=== PATIENT | female | born 1960 | race Caucasian/White ===

== ENCOUNTER 2016-11-02 03:39 | Emergency (ER) | payer BC ==
[~2016-11-02] VITALS: Ht 172.7 cm; Wt 50.3 kg
[~2016-11-02 03:39] MED LIST: DULO-24 PO; MORP15TA PO; MULT-506 PO; PRLSR20 PO; QUET1TAB34 PO; VITAMIN D3 PO; [UNRECOGNIZED DRUG - CODE] PO
[2016-11-02 03:40] VITALS: TEMP 37.1; Ht 172.7 cm; Wt 50.3 kg
[2016-11-02] MEDS ORDERED: LORAZEPAM 0.5 MG TAB SL STA (04:00)
[2016-11-02] MEDS ORDERED: RANI300T PO (04:10)
[2016-11-02] MEDS ORDERED: MORP-88 PO (04:10)
--- NOTE | 2016-11-02 04:10 | EMERGENCY ROOM VISIT NOTE ---
History Report prepared by Nainibmaria m: Gricel Heck Under the Supervision of: Dr. Ed Moyer M.D. First contact with patient: 03:50 Chief Complaint: MENTAL HEALTH EVALUATION Stated Complaint: PARANOIA,FEAR,LACK OF SLEEP History of Present Illness The patient is a 56 year old female who presents to the Emergency Room for a mental health evaluation. The patient states that she "been on a roller coaster for a couple years" and she "drove my son over the edge". She states shes happy and denies thoughts of hurting her self. The patient denies any pain, headaches , chest pain, and urinary symptoms. She is on Morphine for scoliosis, Statin, an anti-depressant, and Trazodone. She also states she smokes. Per son, the patient's episode today is almost identical to the last time the patient was in the ED for a manic episode requiring admission a few years ago. Michael drug/ etoh use. She admits inability to sleep. Source of History: patient Onset: today Position: other (generalized) Timing: other (episode) Associated Symptoms: No headache, No chest pain, No urinary symptoms Review of Systems See HPI for pertinent positives & negatives. A total of 10 systems reviewed and were otherwise negative. Past Medical & Surgical Medical Problems: (1) Pneumonia (2) Scoliosis Family History Hypertension Kidney disease Social History Smoking Status: Current Every Day Smoker Alcohol Use: none Drug Use: none Marital Status: Housing Status: lives alone Occupation Status: employed Current/Historical Medications Scheduled Atorvastatin (Atorvastatin Calcium), 20 MG PO DAILY Duloxetine HCl (Duloxetine HCl), 30 MG PO BID Morphine Sulfate (Morphine Sulfate Cr), 60 MG PO Q12 Ranitidine Hcl (Zantac), 300 MG PO BID Trazodone Hcl (Desyrel), 125 MG PO HS Scheduled PRN Morphine Sulfate Ir (Morphine Sulfate Ir), 15 MG PO Q4H PRN for Pain Allergies Coded Allergies: Risperidone (Verified Allergy, Unknown, CONFUSED, 11/02/16) Physical Exam Vital Signs Date Time Temp Pulse Resp B/P (MAP) Pulse Ox O2 Delivery O2 Flow Rate FiO2 11/02/16 07:20 95 18 132/86 96 Room Air 11/02/16 03:40 37.1 122 20 139/94 96 Room Air Physical Exam GENERAL: Patient is acutely manic, happy, no distress. HEENT: No acute trauma, normocephalic atraumatic, mucous membranes moist, no nasal congestion, no scleral icterus. NECK: No stridor, no adenopathy, no meningismus, trachea is midline. LUNGS: No dyspnea. Clear to auscultation and equal bilaterally. No wheeze, no rhonchi. HEART: Regular rate and rhythm. No murmurs, rubs, gallops appreciated. ABDOMEN: Soft, nontender, bowel sounds positive, no masses appreciated, no peritonitis. BACK: No midline tenderness, no CVA tenderness EXTREMITIES: Normal motion all extremities, no cyanosis, no edema. NEUROLOGIC: Alert and oriented, no acute motor or sensory deficits, no focal weakness, cranial nerves grossly intact. SKIN: No rash, no jaundice, no diaphoresis. PSYCH: Tangential, repetitive, rapid speech. Denies suicidal and homicidal ideation. Denies depression. Medical Decision & Procedures Laboratory Results 11/02/16 04:07 Red Blood Count 5.25, Mean Corpuscular Volume 89.1, Mean Corpuscular Hemoglobin 33.3, Mean Corpuscular Hemoglobin Concent 37.4, Mean Platelet Volume 9.5, Neutrophils (%) (Auto) 72.6, Lymphocytes (%) (Auto) 19.9, Monocytes (%) (Auto) 6.6, Eosinophils (%) (Auto) 0.2, Basophils (%) (Auto) 0.4, Neutrophils # (Auto) 8.23, Lymphocytes # (Auto) 2.26, Monocytes # (Auto) 0.75, Eosinophils # (Auto) 0.02, Basophils # (Auto) 0.04 11/02/16 04:07 Test 11/02/16 04:07 11/02/16 04:34 White Blood Count 11.33 K/uL (4.8-10.8) Red Blood Count 5.25 M/uL (4.2-5.4) Hemoglobin 17.5 g/dL (12.0-16.0) Hematocrit 46.8 % (37-47) Mean Corpuscular Volume 89.1 fL (80-100) Mean Corpuscular Hemoglobin 33.3 pg (25-34) Mean Corpuscular Hemoglobin Concent 37.4 g/dl (32-36) Platelet Count 255 K/uL (130-400) Mean Platelet Volume 9.5 fL (7.4-10.4) Neutrophils (%) (Auto) 72.6 % Lymphocytes (%) (Auto) 19.9 % Monocytes (%) (Auto) 6.6 % Eosinophils (%) (Auto) 0.2 % Basophils (%) (Auto) 0.4 % Neutrophils # (Auto) 8.23 K/uL (1.4-6.5) Lymphocytes # (Auto) 2.26 K/uL (1.2-3.4) Monocytes # (Auto) 0.75 K/uL (0.11-0.59) Eosinophils # (Auto) 0.02 K/uL (0-0.5) Basophils # (Auto) 0.04 K/uL (0-0.2) RDW Standard Deviation 40.9 fL (36.4-46.3) RDW Coefficient of Variation 12.6 % (11.5-14.5) Immature Granulocyte % (Auto) 0.3 % Immature Granulocyte # (Auto) 0.03 K/uL (0.00-0.02) Anion Gap 8.0 mmol/L (3-11) Est Creatinine Clear Calc Drug Dose 67.4 ml/min Estimated GFR () 105.0 Estimated GFR (Non- 90.6 BUN/Creatinine Ratio 9.2 (10-20) Calcium Level 9.3 mg/dl (8.5-10.1) Total Bilirubin 1.8 mg/dl (0.2-1) Aspartate Amino Transf (AST/SGOT) 16 U/L (15-37) Alanine Aminotransferase (ALT/SGPT) 27 U/L (12-78) Alkaline Phosphatase 78 U/L (45-117) Total Protein 7.7 gm/dl (6.4-8.2) Albumin 4.4 gm/dl (3.4-5.0) Globulin 3.3 gm/dl (2.5-4.0) Albumin/Globulin Ratio 1.3 (0.9-2) Thyroid Stimulating Hormone (TSH) 0.585 uIu/ml (0.300-4.500) Salicylates Level 3.5 mg/dl (2.8-20) Acetaminophen Level < 2 ug/ml (10-30) Ethyl Alcohol mg/dL < 3.0 mg/dl (0-3) Urine Color YELLOW Urine Appearance CLOUDY (CLEAR) Urine pH 6.5 (4.5-7.5) Urine Specific Butler 1.009 (1.000-1.030) Urine Protein NEG (NEG) Urine Glucose (UA) NEG (NEG) Urine Ketones TRACE (NEG) Urine Occult Blood 1+ (NEG) Urine Nitrite NEG (NEG) Urine Bilirubin NEG (NEG) Urine Urobilinogen NEG (NEG) Urine Leukocyte Esterase TRACE (NEG) Urine WBC (Auto) /hpf (0-5) Urine RBC (Auto) /hpf (0-4) Urine Hyaline Casts (Auto) /lpf (0-5) Urine Epithelial Cells (Auto) /lpf (0-5) Urine Bacteria (Auto) (NEG) Urine RBC 0-4 /hpf (0-4) Urine WBC 5-10 /hpf (0-5) Urine Epithelial Cells 10-20 /lpf (0-5) Urine Bacteria NEG (NEG) Urine Opiates Screen POS (NEG) Urine Methadone, Qualitative NEG (NEG) Urine Barbiturates NEG (NEG) Urine Phencyclidine (PCP) Level NEG (NEG) Ur Amphetamine/Methamphetamine NEG (NEG) MDMA (Ecstasy) Screen NEG (NEG) Urine Benzodiazepines Screen NEG (NEG) Urine Cocaine Metabolite NEG (NEG) Urine Marijuana (THC) NEG (NEG) Laboratory results as reviewed by me. Medications Administered Medications (Trade) Dose Ordered Sig/Yara Route Start Time Stop Time Status Last Admin Dose Admin Lorazepam (Ativan Tab) 0.5 mg NOW STAT SL 11/02/16 04:00 11/02/16 04:01 DC 11/02/16 04:19 0.5 MG Nicotine (Nicoderm Cq 21MG Patch) 1 patch NOW STAT TD 11/02/16 04:11 11/02/16 04:13 DC 11/02/16 04:19 1 PATCH Nicotine Polacrilex (Nicorette 2MG Gum) 2 piece NOW STAT MT 11/02/16 04:11 11/02/16 04:13 DC 11/02/16 04:19 2 PIECE Nicotine Polacrilex (Nicorette 2MG Gum) 2 piece NOW STAT MT 11/02/16 06:55 11/02/16 06:56 DC 11/02/16 07:20 2 PIECE ED Course 0353: The patient was evaluated in room A5. A complete history and physical exam was performed. 0400: Lorazepam 0.5 mg SL. 0411Nicotine Polacrilex 2 piece MT, Nicotine 1 patch TD. 0650: This patient was accepted to the [facility]. Medical Decision Differential: Mood Disorder, Overdose, Infectious, Electrolyte Abnormality, Cardiac, Hepatic, Endocrine, Toxicologic, Neurologic, amongst other pathologies entertained. 56 yr old acutely manic female arrives for evaluation with her son. No evidence of overt medical cause. There is mildly elevated Bili but normal LFTs otherwise. She has no abdominal pain no jaundice by exam thus I do not feel that emergent imaging/work-up at this time mandated. No evidence infectious cause. This is similar to previous manic episode. Suspect it was brought on by recent high stress of fight with friend she had been living with over the summer. She was given Ativan PO to help calm her down a bit. She is mildly paranoid by my exam though son notes this was worse prior to arrival. I have asked [facility] to evaluate patient who agreed with inpatient treatment. Accepted to [place] for further treatment/evaluation. Medication Reconcilliation Current Medication List: was personally reviewed by me Blood Pressure Screening Patient's blood pressure: Elevated blood pressure Blood pressure disposition: Did not require urgent referral Impression Primary Impression: Manic excitement Additional Impression: Paranoia Scribe Attestation The scribe's documentation has been prepared under my direction and personally reviewed by me in its entirety. I confirm that the note above accurately reflects all work, treatment, procedures, and medical decision making performed by me. Departure Information Referrals Yovany Davis M.D. (PCP) Patient Instructions My [facility] Problem Qualifiers
[2016-11-02] MEDS ORDERED: NICOTINE POLACRILEX 2 MG GUM MT STA ×2 (04:11→06:55)
[2016-11-02] MEDS ORDERED: NICOTINE 21 MG/24 HR TDSY TD STA (04:11)
[2016-11-02] MEDS ORDERED: TRAZ1TAB5 PO (04:12)
[2016-11-02] MEDS ORDERED: LPT/20 PO (04:12)
[2016-11-02] MEDS ORDERED: CYM30 PO (04:12)
[2016-11-02 04:16] LABS: BASO % 0.4 %; BASO ABS # 0.04 K/uL (0-0.2); COMPLETE YES; EOS % 0.2 %; HEMATOCRIT 46.8 % (37-47); IG% 0.3 %; LYMPH % 19.9 %; LYMPH ABS # 2.26 K/uL (1.2-3.4); MEAN CELL VOLUME 89.1 fL (80-100); MEAN CORPUSCULAR HEMOGLOBIN 33.3 pg (25-34); MEAN CORPUSCULAR HGB CONC 37.4 g/dl (32-36); MEAN PLATELET VOLUME 9.5 fL (7.4-10.4); MONO % 6.6 %; NEUT % 72.6 %; PLATELET COUNT 255 K/uL (130-400); RED BLOOD COUNT 5.25 M/uL (4.2-5.4); WHITE BLOOD COUNT 11.33 K/uL (4.8-10.8)
[2016-11-02 04:38] LABS: BUN/CREATININE RATIO 9.2 (10-20); CALCIUM 9.3 mg/dl (8.5-10.1); CREATININE 0.74 mg/dl (0.60-1.20); POTASSIUM 3.3 mmol/L (3.5-5.1)
[2016-11-02 04:47] LABS: URINE APPEARANCE CLOUDY (CLEAR); URINE BILIRUBIN NEG (NEG); URINE COLOR YELLOW; URINE NITRITE NEG (NEG); URINE PH 6.5 (4.5-7.5); URINE SPECIFIC GRAVITY 1.009 (1.000-1.030); UROBILINOGEN NEG (NEG); ZZUR CULT IF INDIC CLEAN CATCH NO
[2016-11-02 04:48] LABS: ACETAMINOPHEN < 2 ug/ml (10-30)
[2016-11-02 04:49] LABS: ALB/GLOB RATIO 1.3 (0.9-2); THYROID STIMULATING HORMONE 0.585 uIu/ml (0.300-4.500)
[2016-11-02 05:12] LABS: BENZODIAZEPINE, URINE NEG (NEG); COCAINE,URINE NEG (NEG); PHENCYCLIDINE, URINE NEG (NEG)
[2016-11-02 05:15] LABS: MANUAL MICROSCOPIC REQUIRED? YES; REVIEW REQ? NO
[2016-11-02 06:45] LABS: URINE BACTERIA NEG (NEG); URINE RBC 0-4 /hpf (0-4)
[2016-11-02] MEDS ORDERED: RANITIDINE HCL 150 MG TAB PO ONE (07:30)
[2016-11-02] MEDS ORDERED: MoRPHine SULFATE IR 15 MG TAB (IMMEDIATE RELEASE) PO PRN (07:30)
[2016-11-02 08:57] VITALS: BP 121/83; PULSE 111; O2SAT 98
[2016-11-02] MEDS ORDERED: DULOXETINE (CYMBALTA) 30 MG CAP PO SCH (09:00)
[2016-11-02] MEDS ORDERED: MoRPHine SULFATE CR 60 MG TAB (MS CONTIN) PO SCH (09:00)
[2016-11-02] MEDS ORDERED: ATORVASTATIN 20 MG TAB PO SCH (09:00)
[2016-11-04 11:00] LABS: COD UR NEGATIVE NG/ML (CUTOFF=50); HYDROCOD UR NEGATIVE NG/ML (CUTOFF=50); HYDROMOR UR NEGATIVE NG/ML (CUTOFF=50); MORPHINE UR 2850 NG/ML (CUTOFF=50); NORHYDROCODONE CONF UR NEGATIVE NG/ML (CUTOFF=50); OXYMORPH UR NEGATIVE NG/ML (CUTOFF=50)
== END 2016-11-02 09:00 ==
LOC: C.EDB 03:40 → C.EDA 09:00
DX: F30.9 Manic episode, unspecified (principal); F22 Delusional disorders; Z87.01 Personal history of pneumonia (recurrent); M41.9 Scoliosis, unspecified; Z82.49 Family history of ischemic heart disease and other diseases of the circulatory system; Z84.1 Family history of disorders of kidney and ureter; F17.210 Nicotine dependence, cigarettes, uncomplicated; Z79.899 Other long term (current) drug therapy

== ENCOUNTER 2018-10-05 18:54 | Inpatient (IN) ==
[2018-10-05 20:01] LABS: Appearance Urine Clear (Clear); Bilirubin Urine Negative (Negative); Blood Urine Negative (Negative); Color Urine Yellow; Glucose Urine UA Negative (Negative); Ketones Urine Trace (Negative); Leukocyte Esterase Urine Negative (Negative); Nitrite Urine Negative (Negative); Protein Urine Negative (Negative); Specific Gravity Urine 1.024 (1.000-1.030); Urobilinogen Urine Negative (Negative)
[2018-10-05 20:21] LABS: Basophils # (auto) 0.03 K/uL (0-0.2); Basophils % (auto) 0.4 %; Eosinophils # (auto) 0.05 K/uL (0-0.5); Eosinophils % (auto) 0.6 %; Hematocrit (blood only) 42.8 % (37-47); Hemoglobin 15.1 g/dL (12.0-16.0); Immature Granulocytes # (auto) 0.01 K/uL (0.00-0.02); Immature Granulocytes % (auto) 0.1 %; Lymphocytes % (auto) 30.7 %; Mean Corpuscular Hgb Conc 35.3 g/dL (32-36); Mean Corpuscular Volume 94.5 fL (80-100); Mean Platelet Volume 9.3 fL (7.4-10.4); Monocytes # (auto) 0.58 K/uL (0.11-0.59); Monocytes % (auto) 7.4 %; Neutrophils # (auto) 4.75 K/uL (1.4-6.5); Neutrophils % (auto) 60.8 %; Platelet Count 254 K/uL (130-400); RDW Coefficient of Variation 12.6 % (11.5-14.5); RDW Standard Deviation 43.7 fL (36.4-46.3); Red Blood Count 4.53 M/uL (4.2-5.4); White Blood Count 7.82 K/uL (4.8-10.8)
[2018-10-05 20:32] LABS: Amphetamines+Metham, Urine Neg (Neg); Barbiturates, Urine Neg (Neg); Benzodiazepine, Urine Neg (Neg); Cocaine, Urine Neg (Neg); MDMA (Ecstacy), Urine Pos (Neg); Methadone, Urine Neg (Neg); Opiate, Urine Pos (Neg); Phencyclidine, Urine Neg (Neg)
[2018-10-05 20:39] LABS: BUN Creatinine Ratio 30.9 (10-20); Calcium 9.3 mg/dl (8.5-10.1); Creatinine Clr Calc Pharmacy 62.9 ml/min; Est GFR (African American) 110.7; Est GFR (Non-African American) 95.5; Potassium 3.7 mmol/L (3.5-5.1)
[2018-10-05 20:40] LABS: Acetaminophen < 2 ug/ml (10-30); Salicylate < 1.7 mg/dl (2.8-20); Valproic Acid 79 mcg/ml (50-100)
[2018-10-05 20:50] LABS: Albumin Globulin Ratio 1.2 (0.9-2); Bilirubin,Total 1.2 mg/dl (0.2-1); Globulin 3.4 gm/dl (2.5-4.0); Total Protein 7.4 gm/dl (6.4-8.2)
[2018-10-05] MEDS ORDERED: MoRPHine SULFATE CR 15 MG TABCR PO STA (21:36)
--- NOTE | 2018-10-05 21:36 | Emergency Department Note ---
Entered by Kinsey Trejo acting as a scribe for Cruzito Koch MD History of Present Illness General Chief complaint: Mental Health Evaluation Stated complaint: PANIC ATTACK Time Seen by Provider: 10/05/18 19:10 Source: patient History of Present Illness Onset (ago): day(s) 1 Location: head (general) Pain Consistency: + other (episode) Maximum Pain Intensity: 5 Quality: + other (need for a mental health evaluation) Associated symptoms: + other (positive unable to sleep; positive head "foggy"; positive thoughts of hurting and killing self; negative suicidal plan; negative thoughts of hurting others; negative hearing voices; negative congestion; positive urinary incontinence; negative diarrhea); no cough and no nausea/vomiting The patient is a 58 year old female who presents to the Emergency Room with complaints of an episode of a need for a mental health evaluation that began yesterday. The patient states that she feels as though her bipolar disorder is out of control. She states that she has not been able to sleep for the past two nights, and states that she feels exhausted and that her head is "foggy". The patient denies thoughts of hurting others and hearing voices. She states that she has had thoughts of hurting and killing herself for "awhile" but states that she does not have a plan as to how she would do this. The patient states that she has never tried to kill herself before. She denies alcohol or drug use, but states that she smokes cigarettes. The patient denies any recent cough, congestion, nausea, vomiting, and diarrhea. She states that recently she has had some urinary incontinence. Home Medications Home Medications Medication Instructions Recorded Confirmed Type atorvastatin 20 mg PO QAM 12/04/17 10/05/18 History morphine 15 mg PO Q4H PRN MDD 90 MG 12/04/17 10/05/18 History multivitamin 1 tab PO QAM 12/04/17 10/05/18 History olanzapine 10 mg PO ONCE HS 12/04/17 10/05/18 History ranitidine HCl 300 mg PO BID 12/04/17 10/05/18 History trazodone 150 mg PO HS 12/04/17 10/05/18 History morphine 30 mg PO ONCE HS 08/26/18 10/05/18 History divalproex 1,000 mg PO QAM 10/04/18 10/05/18 History Allergies Allergy/AdvReac Type Severity Reaction Status Date / Time risperidone Allergy Unknown CONFUSED Verified 09/24/18 08:58 Past Med/Surg History Medical History Bipolar disorder (Chronic) Restless legs syndrome (Chronic) Scoliosis (Chronic) Depression (Chronic) Paranoia (Resolved 04/02/13) Acute anxiety (Inactive) Emphysema lung Surgical History Hx of spinal surgery Family History Other Heart disease Hypertension Social History Preferred Language: Malagasy Communication Ability: Effective Communication Ability Comment: slowed thinking Visual Impairment: No Limitations Hearing Ability: Normal Chip Frier Required: No Beliefs That Will Affect Care: None marital status: current occupational status: unemployed Feels Safe at Home: Yes Smoking Status: Current every day smoker Tobacco Type: cigarettes Hx Alcohol Use: No Hx Substance Use: Yes Review of Systems See HPI for pertinent positives & negatives. and A total of 10 systems reviewed and were otherwise negative Physical Exam Vital Signs Vital Signs - 24 hr 10/05/18 19:04 10/05/18 20:54 10/05/18 22:39 Sepsis Recent Fever Within 48 Hours No Sepsis New/Unexplained Change in Mental Status No Sepsis Action Taken by Nursing No Action Required Pulse Rate [Finger] 87 85 Respiratory Rate 20 20 Blood Pressure [Left Arm] 102/68 104/68 Blood Pressure Mean [Left Arm] 79 80 Blood Pressure Position [Left Arm] Sitting Pulse Oximetry 98 98 GENERAL: Awake, alert, anxious-appearing, in no distress HENT: Normocephalic, atraumatic. Oropharynx with dry mucous membranes and otherwise unremarkable. EYES: Normal conjunctiva. Sclera non-icteric. EOMI. No nystamgus. PEARRL. NECK: Supple. No nuchal rigidity. FROM. No JVD. RESPIRATORY: CTAB. CARDIAC: Regular rate, normal rhythm. Extremities warm and well perfused. Pulses equal. ABDOMEN: Soft, non-distended. No tenderness to palpation. No rebound or guarding. No masses. RECTAL: Deferred. MUSCULOSKELETAL: Chest examination reveals no tenderness. The back is symmetrical on inspection without obvious abnormality. There is no CVA t enderness to palpation. No joint edema. LOWER EXTREMITIES: Calves are equal size bilaterally and non-tender. No edema. No discoloration. NEURO: Tremulous. Normal sensorium. No sensory or motor deficits noted. DTRs wnl. No clonus. PSYCH: Positive insomnia, SI. Denies hallucinations. SKIN: No rash or jaundice noted. Course 1940: Past medical records reviewed. The patient was evaluated in room A7. A complete history and physical exam was performed. The patient was accepted for further evaluation at [address] [place] [address]. Administered Medications Discontinued Medications Morphine Sulfate (Ms Contin) 30 mg PO NOW STA Stop: 10/05/18 21:37 Last Admin: 10/05/18 22:02 Dose: 30 mg Documented by: [id number] Olanzapine (Zyprexa) 10 mg PO ONCE STA Stop: 10/06/18 01:32 Last Admin: 10/06/18 02:08 Dose: 10 mg Documented by: [id number] Trazodone HCl (Desyrel) 150 mg PO NOW ONE Stop: 10/06/18 01:37 Last Admin: 10/06/18 02:08 Dose: 150 mg Documented by: [id number] Medical Decision Making Differential Diagnosis Differential diagnosis: Etiologies such as mood disorder, infection, hypoglycemia, electrolyte abnormalities, cardiac sources, intracerebral event, toxicologic, neurologic, as well as others were entertained. Medical Records Attestation: I reviewed the patient's medical records. Home Medications Current Medication List: was personally reviewed by me Laboratory Data Attestation: I reviewed the patient's lab results. Result diagrams: 10/05/18 19:58 10/05/18 19:58 Lab Results 10/05/18 10/05/18 10/05/18 Range/Units 19:20 19:20 19:58 WBC 7.82 (4.8-10.8) K/uL RBC 4.53 (4.2-5.4) M/uL Hgb 15.1 (12.0-16.0) g/dL Hct 42.8 (37-47) % MCV 94.5 (80-100) fL MCH 33.3 (25-34) pg MCHC 35.3 (32-36) g/dL RDW Std Deviation 43.7 (36.4-46.3) fL RDW Coeff of Haley 12.6 (11.5-14.5) % Plt Count 254 (130-400) K/uL MPV 9.3 (7.4-10.4) fL Immature Gran % (Auto) 0.1 % Neut % (Auto) 60.8 % Lymph % (Auto) 30.7 % Ulster % (Auto) 7.4 % Eos % (Auto) 0.6 % Baso % (Auto) 0.4 % Immature Gran # (Auto) 0.01 (0.00-0.02) K/uL Neut # (Auto) 4.75 (1.4-6.5) K/uL Lymph # (Auto) 2.40 (1.2-3.4) K/uL Ulster # (Auto) 0.58 (0.11-0.59) K/uL Eos # (Auto) 0.05 (0-0.5) K/uL Baso # (Auto) 0.03 (0-0.2) K/uL Sodium (136-145) mmol/L Potassium (3.5-5.1) mmol/L Chloride (98-107) mmol/L Carbon Dioxide (21-32) mmol/L Anion Gap (3-11) BUN (7-18) mg/dl Creatinine (0.6-1.2) mg/dl Est Cr Clr Drug Dosing ml/min Est GFR ( Amer) Est GFR (Non-Af Amer) BUN/Creatinine Ratio (10-20) Glucose (70-99) mg/dl Calcium (8.5-10.1) mg/dl Total Bilirubin (0.2-1) mg/dl AST (15-37) U/L ALT (12-78) U/L Alkaline Phosphatase (45-117) U/L Total Protein (6.4-8.2) gm/dl Albumin (3.4-5.0) gm/dl Globulin (2.5-4.0) gm/dl Albumin/Globulin Ratio (0.9-2) TSH (0.300-4.500) uIu/ml Urine Color Yellow Urine Appearance Clear (Clear) Urine pH 6.0 (4.5-7.5) Ur Specific Davenport 1.024 (1.000-1.030) Urine Protein Negative (Negative) Urine Glucose (UA) Negative (Negative) Urine Ketones Trace H (Negative) Urine Blood Negative (Negative) Urine Nitrite Negative (Negative) Urine Bilirubin Negative (Negative) Urine Urobilinogen Negative (Negative) Ur Leukocyte Esterase Negative (Negative) Salicylates (2.8-20) mg/dl Urine Opiates Screen Pos H (Neg) Ur Methadone, Qual Neg (Neg) Acetaminophen (10-30) ug/ml Urine Barbiturates Neg (Neg) Valproic Acid (50-100) mcg/ml Ur Phencyclidine (PCP) Neg (Neg) U Amphetamin/Meth Scrn Neg (Neg) MDMA (Ecstasy) Screen Pos H (Neg) U Benzodiazepines Scrn Neg (Neg) Ur Cocaine Metabolite Neg (Neg) U Marijuana (THC) Screen Neg (Neg) Ethyl Alcohol mg/dL (0-3) mg/dl 10/05/18 10/05/18 10/05/18 Range/Units 19:58 19:58 19:58 WBC (4.8-10.8) K/uL RBC (4.2-5.4) M/uL Hgb (12.0-16.0) g/dL Hct (37-47) % MCV (80-100) fL MCH (25-34) pg MCHC (32-36) g/dL RDW Std Deviation (36.4-46.3) fL RDW Coeff of Haley (11.5-14.5) % Plt Count (130-400) K/uL MPV (7.4-10.4) fL Immature Gran % (Auto) % Neut % (Auto) % Lymph % (Auto) % Ulster % (Auto) % Eos % (Auto) % Baso % (Auto) % Immature Gran # (Auto) (0.00-0.02) K/uL Neut # (Auto) (1.4-6.5) K/uL Lymph # (Auto) (1.2-3.4) K/uL Ulster # (Auto) (0.11-0.59) K/uL Eos # (Auto) (0-0.5) K/uL Baso # (Auto) (0-0.2) K/uL Sodium 140 (136-145) mmol/L Potassium 3.7 (3.5-5.1) mmol/L Chloride 107 (98-107) mmol/L Carbon Dioxide 28 (21-32) mmol/L Anion Gap 5.0 (3-11) BUN 22 H (7-18) mg/dl Creatinine 0.70 (0.6-1.2) mg/dl Est Cr Clr Drug Dosing 62.9 ml/min Est GFR ( Amer) 110.7 Est GFR (Non-Af Amer) 95.5 BUN/Creatinine Ratio 30.9 H (10-20) Glucose 99 (70-99) mg/dl Calcium 9.3 (8.5-10.1) mg/dl Total Bilirubin 1.2 H (0.2-1) mg/dl AST 16 (15-37) U/L ALT 33 (12-78) U/L Alkaline Phosphatase 65 (45-117) U/L Total Protein 7.4 (6.4-8.2) gm/dl Albumin 4.0 (3.4-5.0) gm/dl Globulin 3.4 (2.5-4.0) gm/dl Albumin/Globulin Ratio 1.2 (0.9-2) TSH 0.940 (0.300-4.500) uIu/ml Urine Color Urine Appearance (Clear) Urine pH (4.5-7.5) Ur Specific Daven[place] (1.000-1.030) Urine Protein (Negative) Urine Glucose (UA) (Negative) Urine Ketones (Negative) Urine Blood (Negative) Urine Nitrite (Negative) Urine Bilirubin (Negative) Urine Urobilinogen (Negative) Ur Leukocyte Esterase (Negative) Salicylates < 1.7 L (2.8-20) mg/dl Urine Opiates Screen (Neg) Ur Methadone, Qual (Neg) Acetaminophen < 2 L (10-30) ug/ml Urine Barbiturates (Neg) Valproic Acid 79 (50-100) mcg/ml Ur Phencyclidine (PCP) (Neg) U Amphetamin/Meth Scrn (Neg) MDMA (Ecstasy) Screen (Neg) U Benzodiazepines Scrn (Neg) Ur Cocaine Metabolite (Neg) U Marijuana (THC) Screen (Neg) Ethyl Alcohol mg/dL < 3.0 (0-3) mg/dl Blood Pressure Blood Pressure Findings: Normal blood pressure MDM Narrative The patient is a pleasant 58-year-old woman with a past medical history of bipolar disorder, chronic pain/restless leg syndrome who presents emergency for persistent sarthak over the past several days with associated depression seen in the ED yesterday for similar sx but now worse with persistent SI per hpi. Admitted to [place] last month for similar sx. On arrival patient is anxious appearing and mildly tremulous but no acute distress, afebrile with stable vital signs. There is no rigidity. Reflexes within normal limits. No clonus. Patient reports depression and persistent suicidal ideation. She is interested in voluntary inpatient admission as she feels her symptoms are out of control. WBC, H/H, platelets wnl. Chemistry without acidosis. LFTs and electrolytes unremarkable. UA negative for infection. Patient medically cleared. Referral mad e to and evaluation in progress. Patient signed out to Dr. Nickerson at change of shift. Impression & Plan Bipolar I disorder with sarthak, Suicidal ideation Discharge Plan Visit Data *Final* Discharge Date/Time: 10/06/18 00:55 Chief Complaint: Mental Health Evaluation Stated Complaint: PANIC ATTACK ED Provider: Geraldine Marie Discharge Problem: Bipolar I disorder with sarthak, Suicidal ideation Patient Disposition: Admitted As Inpatient Discharge Instructions Interventions: ED Discharge Assessment Last Done: 10/06/18 00:55 The scribe's documentation has been prepared under my direction and personally reviewed by me in its entirety. I confirm that the note above accurately reflects all work, treatment, procedures, and medical decision making performed by me.
[2018-10-05] MEDS ORDERED: MoRPHine SULFATE IR 15 MG TAB (IMMEDIATE RELEASE) PO PRN (23:43)
[2018-10-05] MEDS ORDERED: OLANZapine 10 MG TAB PO SCH (23:45)
[2018-10-05] MEDS ORDERED: TRAZODONE HCL 50 MG TAB PO SCH (23:50)
[2018-10-06] MEDS ORDERED: NICOTINE POLACRILEX 2 MG GUM MT PRN (01:22)
[2018-10-06] MEDS ORDERED: BISMUTH SUBSALICYLATE PER ML OMNICELL CHARGE PO PRN (01:22)
[2018-10-06] MEDS ORDERED: ACETAMINOPHEN 325 MG TAB PO PRN (01:22)
[2018-10-06] MEDS ORDERED: SODIUM CHLORIDE 0.65% NA SOLN 45 ML (OCEAN) PRN (01:22)
[2018-10-06] MEDS ORDERED: OLANZapine 10 MG TAB PO STA (01:31)
[2018-10-06] MEDS ORDERED: TRAZODONE HCL 100 MG TAB PO STA (01:32)
[2018-10-06] MEDS ORDERED: TRAZODONE HCL 50 MG TAB PO ONE (01:36)
[2018-10-06] MEDS: MoRPHine SULFATE IR 15 MG TAB (IMMEDIATE RELEASE) PO PRN ×4 (04:26→17:57)
--- NOTE | 2018-10-06 06:26 | Emergency Department Note ---
ED Visit Note I received this patient in signout at the change of shift from Dr. Koch, pending mental health disposition. Patient was accepted on a voluntary basis to [facility] for further management. Please refer to previous documentation for further details of the history, physical and visit. .
[2018-10-06] MEDS: MULTIVITAMIN TAB PO SCH (08:38)
[2018-10-06] MEDS: ATORVASTATIN 20 MG TAB PO SCH (08:38)
[2018-10-06] MEDS: NICOTINE 21 MG/24 HR TDSY TD SCH (08:39)
[2018-10-06] MEDS ORDERED: MULTIVITAMIN TAB PO SCH (09:00)
[2018-10-06] MEDS ORDERED: DIVALPROEX EXTENDED RELEASE 500 MG TAB PO SCH (09:00)
[2018-10-06] MEDS ORDERED: ATORVASTATIN 20 MG TAB PO SCH (09:00)
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
[2018-10-06] MEDS ORDERED: MORPHINE 30 MG PO SCH (20:45)
[2018-10-06] MEDS: MoRPHine SULFATE CR 15 MG TABCR PO SCH (21:08)
[2018-10-06] MEDS ORDERED: TRAZODONE HCL 50 MG TAB PO SCH (22:00)
[2018-10-06] MEDS ORDERED: MIRTAZAPINE TAB 15 MG TAB PO SCH (22:00)
[2018-10-06] MEDS ORDERED: OLANZapine 10 MG TAB PO SCH (22:00)
[2018-10-07] MEDS: MoRPHine SULFATE IR 15 MG TAB (IMMEDIATE RELEASE) PO PRN ×2 (06:23→13:12)
[2018-10-07] MEDS: NICOTINE 21 MG/24 HR TDSY TD SCH (08:00)
[2018-10-07] MEDS: MULTIVITAMIN TAB PO SCH (08:00)
[2018-10-07] MEDS: ATORVASTATIN 20 MG TAB PO SCH (08:00)
[2018-10-07] MEDS ORDERED: MULTIVITAMIN TAB PO SCH (09:00)
--- NOTE | 2018-10-07 15:01 | Psychiatric Progress Note ---
Date of Service October 07, 2018 Impression / Recommendations Impression The patient is a 58yo female that presents with lower mood, restlessness, anxiety and passive SI readmission after recent discharge from [facility] for similar sx 2 weeks ago with discharge only 5days ago. Although she does not recall specifically she has had s/sx in the past c/w confusion/psychosis in 2013 that may or may not have been primary mood disorder, and again in 2017 with ER noting clearly elevated and hyperverbal. First night 10/06 attempting to support mood stablization and sleep while reducing akathisian and gathering more collateral from records on cognitive sx lab work up, weight loss work up and prior trials of medications so gave trial off depakote, kept zyprexa and off trazodone and started remeron 15mg/hs. For support of mood and anxiety have contemplated all the above concerns as well as sleep and pain and risk of mood destablization and restlessness with any serotonin med. Discussed stopping trazodone and trying remeron for patient off label for sleep and anxiety while on label for depression. Need to monitor for restlessness, sedation. May support appetite. 10/07 change in treatment direction see below to simplify medication regimen and target several sx wtih seroquel as noted below due (1) Akathisia: 10/06/18 - possibly neuroleptic induced, worsened by anxiety. Working theory is lowered dose of morphine uncovered akathisia caused by zyprexa need to gather more history to consider need for AAP vs. mood stablizer or both and prior response to other meds, would like to avoid anticholinergics given cognitive concerns 10/07/18 - she is having insomnia, needs mood stablization and antidepressant, she did have some fatigue on 300mg but now on lowered dose of morphine. THere were possibly two instances of enuresis but 200mg consistently was never tested over longer term for treatment, and given akthisia do not wish to use clozaril and other AAP ongoing likelihood of akathisia so will retrial seroquel titration to 200mg watching energy, and monitoring for nighttime urination. Patient affirms understanding history and current situation reveiwed and she agrees with this plan as it supports multiple symptoms and leads to reduction of polypharmacy. (2) Suicidal ideation: 10/06 and 10/07 - inpatient is least restrictive and most appropriate setting for care given multiple risk factors, passive SI, hopelessness, pain, poor sleep, restlessness. (3) Bipolar disorder: 10/06 - She had been stable for many years on zyprexa +/- depakote and trazodone although occassional low moods often seasonally mediated and anxiety at times failing cymbalta due to PANIAGUA's. Given this history I would like to keep her on a mood stablizer but am concerned about hair loss and tremor and possible compounded cognitive impairment with depakote so I held this, so will keep zyprexa 10mg for now.stop depakote, continue zyprexa 10mg, start remeron 15mg/hs 10/07 - stopped zyprexa to r/o akthisia (5mg tonight then off), returned to seroquel (due to sedation stopped remeron as well) 100mg tonight then 200mg thereafter with hope would stablize, help depression and off label help sleep and anxiety, initial target dose if 200mg watching to assure not too fatigued as per last trial t 300mg when she had enureisis and daytime fatigue. She is now at lowered dose of morphine so fatigue and oversedation less likey Strongly consider lamictal for mood stablization, due to h/o break through depression on seroquel in the noel, titration breifly discussed today but patient was too overwhelmed to consent. (4) Cognitive disorder: 10/06/18 - I am concerned about her cognition as her overall MMSE-like assessment was near normal outside of a few points, but her CLOX was notably poor indicating poor executive function concerns. Again I will need to revewi PCM's records to see what labs and studies have been done to r/u reversible causes of cognitive decline. TSH WNL, LFTs WNL. Furthermore morphine and zyprexa and residual VPA can contribute to poor cognition. WIll add MVI for now to support. 10/07 - review of remainder of labs from Dr Davis cited in 10/07 note B12, cbc, CMP vit D all WNL, could be h/o alcohol, polypharmacy with narcotic and AAP, and VPA although the latter has been stopped. There are no focal findings on exam. CLOX I indicates frontal lobe/executive issues but no other obvious release signs or personality changes or overt disinhibition. Recommend referral to neuropsych testing at [facility] after discharge for further characterization of her deficits as they may be pseudo dementia of depression or medications or both. (5) Anxiety: 10/06/18 - remeron off label, zyprexa off label 10/07/18 - off remeron onto seroquel may have some off label help for sleep and anxiety, supportive therapy on milieu as patient works through some roots of anxiety in divulging her medication diversion (6) Chronic pain: 10/06/18 - continue home dose of morphine (if remeron not effective for mood consider SNRI desvenlafaxine with caution) 10/07/18 - caitlyn admits to real pain but taking her morphine less than prescribed for many years and up until recently diverting the rest for money, she states she has recently changed this practice but is cocnerned about how to tell her doctors and the emerging financial strain now that she is no longer diverting her medications. This is a major source of her anxiety, possibly contributing to depression and weight loss as well. - request the weekday team help her to tell her PCM and psychiatrist, and then to work out possible relationship [facility] for [place] or related opiate agonist/antagoist so that her pain can be treated and not diverted if possible Inventory Assets Strengths: voluntary, good rapport with outpatient MD Needs: support, further medical record reveiw and outpatient f/u Risk Factors Assessment Male: No : Yes Do You Have Access To A Gun?: No Health Problems: Yes Mental Health Diagnoses: Yes Substance Use Disorders: No Previous Attempt: No Family History of Suicide: No Previous Psychiatric Hospitalization: Yes Hopelessness: Yes Smoker: Yes Protective Factors Assessment Hinduism Beliefs: Yes : No Employed: No (Disability for back pain from [employer]) Good Rapport with Provider: Yes Interval History Identifying Information ALINA STONE is a 58-year-old F who currently lives in [facility] has her own home but presently staying with a friend "to help her" who has a history of Bipolar disorder and was admitted on 10/06/18 00:28 on a 201 voluntary status for restlessness, anxiety, racing thoughts and thoughts of wanting to . Chief Complaint "I am so anxious". Review of Systems Sleep Information Total Hours of Sleep: 8.25 Meal Information Percent Meal Consumed - Breakfast: 75 Percent Meal Consumed - Lunch: 100 Percent Meal Consumed - Dinner: 90 Subjective Subjective Patient was seen & assessed and interval progress reviewed with Treatment Team Patient continues to show restlessness and slept overnight apparently taking remeron as well as hydroxyzine. THis AM she was highgly anxious taking vistaril 25mg and continues to be anxious and restless throughout the day. Met with patient and she shares she is equally restless if not more. She notes she is anxious physically and mentally. She notes she has low mood and SI and wishes she could , "I want to ." She states she feels cognitively cloudy on par with yesterday no worse, no better. SHe notes she is worried in addition to feeling physically anxious. She had to give her dog to PAWS today. DOg is aging and increasing health concerns, and given her difficulty with her own mental health she cannot care for the dog anymore. She notes low mood, low motivation, physically activated but denies s/sx of elvated or mixed mood state. She denies overt SE from remeron or vistaril last night. On further cognitive exploration when provider noted she has been paying her bills on disability for care home without financial concerns she states "I don't know why I am worried." Upon repeition of these statements to help ellicit cognitive distortions the patient states "I have been having to get into my [place] [facility]" as evidence she has not been able to meet expenses. SHe has contemplated selling her home but does not know where she would live. Then a few minutes later she shares she has been selling her morphine 1-2 pills/day (30- 60pills/month) of her IR morphine "for a long time" and recently "cut that pers on off." Now she is worried about not meeting expenses due to loss of this income. She states she has been taking her ER 30mg morphine and 2 of her 4 IR morphines/day consistently, she is also taking her other prescribed meds consistently. She states this is what she thinks is leading to her current anxiety. Reveiwed her [place] [facility] records in the [facility] chart and her TSH, B12, Vit D all WNL 04/2018, 08/2018 CBC wtih longstanding polycythemia (she is a smoker) at 17 and 50 respectively. o/w CMP WNL. She had colonoscopy in 11/2015. SHe has not had mammography or triage nurse pelvic exam "in many many years." Further reveiw of past medications: seroquel 300mg too sedating, some question if this was related to 2 episodes of enuresis raised by urologist so med was tapered, she was off mood stablizing for some time and then after her [facility] Admission to [facility] returned to mood stablizer was placed on zyprexa and depakote. h/o zoloft remotely and in 2013 had break through depression and anx iety, moved to buspar, ineffective moved to cymbalta, cymbalta caused PANIAGUA but helped mood and anxiety (unclear initially thought less PNAIAGUA at 20mg po bid but then PANIAGUA seemed to recur, and 30mg ineffective) ROS: grossly restless, states she is urinating and defecating normally, no n/v, no f/c/s, back pain 4/7 on medications, intact sleep Physical Exam Psychiatric Orientation: alert and oriented x 3 Apperance: appropriately dressed and appropriately groomed Eye Contact: good eye contact Motor Behavior: steady gait and station, + psychomotor agitation (restless, crossing and uncrossing legs, repositioning in chair) and + akathisia Speech: normal rate/rhythm/volume of speech anxious tone Affect: + anxious affect and + blunted affect Mood: + anxious mood Thought Process: goal directed thought process and clear/coherent thought process Thought Content: + preoccupation (with financial strain and her MD's finding out about her selling medication) and reality based without delusions Suicidal Thoughts: denies suicidal thoughts (today feels safe on unit, felt hopeless and unsafe yesterday) and denies suicidal plan Homicidal Thoughts: denies homicidal thoughts and denies homicidal plan Hallucinations: no auditory hallucinations and no visual hallucinations still a vague historian, she seems anxious and overwhelmed, and cannot spontaneously offer history, but if reveiwed in her [facility] record she can offer information with prompting or clarify; she often uses words like "I don't know, or I don't think so" and it is unclear if this is uncertainty or she truly does not know Estimated Intelligence: consistent with education level Insight: + fair insight Judgement: + fair judgement Vital Signs (Past 24 Hours) Last Vital Signs Temp 36.3 C L 10/07/18 06:00 Pulse 80 10/07/18 06:38 Resp 16 10/07/18 06:00 BP 123/80 10/07/18 06:38 Pulse Ox 98 10/06/18 01:41 See physical exam by Dr East in the ER 10/05/18 which has been reviewed and accepted for purposes of this H&P Results & Data Current Inpatient Medications Current Inpatient Medications: Current Inpatient Medications Acetaminophen (Tylenol) 650 mg PO Q4H PRN PRN Reason: Headache or Minor Fever Stop: 11/05/18 01:21 Al Hydrox/Mg Hydrox/Simethicone (Maalox) 30 ml PO Q4H PRN PRN Reason: GI Upset Stop: 11/05/18 01:21 Atorvastatin Calcium (Lipitor) 20 mg PO QAM SHUN Stop: 11/05/18 08:59 Last Admin: 10/07/18 08:00 Dose: 20 mg Documented by: Bismuth Subsalicylate (Kaopectate) 15 ml PO PRN PRN PRN Reason: Loose Stool Stop: 11/05/18 01:21 Hydroxyzine HCl (Vistaril) 50 mg PO HSZ PRN PRN Reason: Insomnia Stop: 11/05/18 01:21 Last Admin: 10/06/18 21:15 Dose: 50 mg Documented by: Hydroxyzine HCl (Vistaril) 25 mg PO Q4H PRN PRN Reason: Anxiety Stop: 11/05/18 01:21 Last Admin: 10/07/18 09:03 Dose: 25 mg Documented by: Magnesium Hydroxide (Milk Of Magnesia) 30 ml PO DAILY PRN PRN Reason: Heartburn Stop: 11/05/18 01:21 Mirtazapine (Remeron) 15 mg PO HS [facility] Stop: 11/05/18 21:59 Last Admin: 10/06/18 21:08 Dose: 15 mg Documented by: Morphine Sulfate (Ms Contin) 30 mg PO HS SHUN Stop: 10/20/18 21:59 Last Admin: 10/06/18 21:08 Dose: 30 mg Documented by: Morphine Sulfate (Morphine Sulfate Ir) 15 mg PO Q6 PRN PRN Reason: Pain Stop: 10/20/18 01:29 Last Admin: 10/07/18 13:12 Dose: 15 mg Documented by: Multivitamins (Multivitamin Tab) 1 tab PO QAM SHUN Stop: 11/05/18 08:59 Last Admin: 10/07/18 08:00 Dose: 1 tab Documented by: Nicotine (Nicoderm Cq) 21 mg TD QAM SHUN Stop: 11/05/18 08:59 Last Admin: 10/07/18 08:00 Dose: 21 mg Documented by: Nicotine Polacrilex (Nicorette 2mg) 1 piece MT UD PRN PRN Reason: Nicotine Withdrawal Stop: 11/05/18 01:21 Olanzapine (Zyprexa) 10 mg PO HS SHUN Stop: 11/05/18 21:59 Last Admin: 10/06/18 21:09 Dose: 10 mg Documented by: Sodium Chloride (Garwood Nasal) 1 - 2 sprays NA PRN PRN PRN Reason: Nasal Dryness/Congestion Stop: 11/05/18 01:21 Mental Health & Subst Abuse Tx Psychiatrist Date of Appointment with Psychiatrist: 10/12/18 Time of Appointment with Psychiatrist: 9:50am Therapist Name of Therapist: None Log Handler Name of Log Handler: None Post Discharge Appointments Primary Care Physician Name Of Family Doctor: Dr. Yovany Davis Date of Appointment with PCP: 10/09/18 CPT Code CPT Code 18309 > 60min reeiwing records talking to and supuporting patient and making medication changes with consents and discussing [facility] staff
[2018-10-07] MEDS: MoRPHine SULFATE CR 15 MG TABCR PO SCH (20:31)
[2018-10-07] MEDS ORDERED: PNEUMOCOCCAL POLYSACCHARIDES 25 MCG/0.5 ML VIAL/SYR IM ONE (22:00)
[2018-10-07] MEDS ORDERED: PNEUMOCOCCAL ADMINISTRATION CHARGE ONE (22:00)
[2018-10-07] MEDS ORDERED: QUETIAPINE FUMARATE 100 MG TABLET PO SCH (22:00)
[2018-10-07] MEDS ORDERED: OLANZapine 5 MG TABLET PO SCH (22:00)
[2018-10-08] MEDS: MoRPHine SULFATE IR 15 MG TAB (IMMEDIATE RELEASE) PO PRN ×2 (04:18→18:15)
[2018-10-08] MEDS: ATORVASTATIN 20 MG TAB PO SCH (08:27)
[2018-10-08] MEDS: MULTIVITAMIN TAB PO SCH (08:27)
[2018-10-08] MEDS: NICOTINE 21 MG/24 HR TDSY TD SCH (08:27)
--- NOTE | 2018-10-08 09:26 | Psychiatric Progress Note ---
Date of Service October 08, 2018 Impression / Recommendations Impression 58yo female that presents with low mood, restlessness, anxiety, and SI in the context of poor p.o. intake, low body weight with BMI of 15.4, and delusions that she is going to today. She was just discharged from [facility] 5 days prior, where she was treated for similar symptoms, but was noncompliant with medications after discharge, not believing she needed them. She has poor outpatient supports and limited outpatient treatment, with only a psychiatrist and PCP, but no therapist or social media project manager. She has been too anxious to participate in groups or even sign a release to allow referral for a outpatient social media project manager. She does have a son who spoke with staff to provide collateral, but he is out of town on vacation so has not been available for a meeting, and the patient has not spoken with him due to the severity of her symptoms. Her sleep is severely optimized, sleeping only 15 minutes last night. Multiple medication changes have been made to address mood, anxiety, psychotic, and sleep symptoms: Initially Depakote was discontinued, olanzapine 10 mg at bedtime continued, and mirtazapine started; but due to concerns for akathisia, olanzapine was discontinued and quetiapine started. Mirtazapine was discontinued due to concerns of oversedation, and a trial of lamotrigine was discussed but she was too anxious to consent yesterday. Today she is agreeable to a trial of lamotrigine, and we will add an as needed dose of quetiapine for sleep. Additionally, she disclosed that she has been selling part of her morphine for years, and is aware that her prescribing physician will need to be notified. Inpatient treatment is medically necessary due to the severity of her symptoms, and ability to provide for her own basic needs without inpatient level of care, and risk for harm to herself if discharged. (1) Suicidal ideation: 10/06 and 10/07 - inpatient is least restrictive and most appropriate setting for care given multiple risk factors, passive SI, hopelessness, pain, poor sleep, restlessness. 10/08 -patient endorsing suicidal thoughts with a plan to starve herself, and reports that she has been restricting intake with unknown amount of weight loss. She is underweight with BMI 15.4. Continue to monitor p.o. intake and encourage good nutrition. Present on Admission?: Yes (2) Bipolar disorder: 10/06 - She had been stable for many years on Zyprexa +/- Depakote and trazodone although occasional low moods often seasonally mediated and anxiety at times liliana ling Cymbalta due to PANIAGUA's. Given this history I would like to keep her on a mood stabilizer but am concerned about hair loss and tremor and possible compounded cognitive impairment with Depakote so I held this, so will keep Zyprexa 10mg for now.stop Depakote, continue Zyprexa 10mg, start Remeron 15mg/hs 10/07 - stopped zyprexa to r/o akathisia (5mg tonight then off), returned to Seroquel (due to sedation stopped Remeron as well) 100mg tonight then 200mg thereafter with hope would stabilize, help depression and off label help sleep and anxiety, initial target dose if 200mg watching to assure not too fatigued as per last trial t 300mg when she had enuresis and daytime fatigue. She is now at lowered dose of morphine so fatigue and oversedation less likely Strongly consider Lamictal for mood stabilization, due to h/o break through depression on Seroquel in the noel, titration briefly discussed today but patient was too overwhelmed to consent. 10/08 -Continue quetiapine 200 mg at bedtime, and at 50 mg as needed dose for sleep. Reviewed the risks, benefits, and side effects of lamotrigine, which was also reviewed with her yesterday, including the risk of serious rash/SJS. She agreed to a trial, and will start 25 mg daily. -Order fasting labs for monitoring on an atypical antipsychotic. Present on Admission?: Yes (3) Akathisia: 10/06/18 - possibly neuroleptic induced, worsened by anxiety. Working theory is lowered dose of morphine uncovered akathisia caused by Zyprexa need to gather more history to consider need for AAP vs. mood stabilizer or both and prior response to other meds, would like to avoid anticholinergics given cognitive concerns 10/07/18 - she is having insomnia, needs mood stabilization and antidepressant, she did have some fatigue on 300mg but now on lowered dose of morphine. There were possibly two instances of enuresis but 200mg consistently was never tested over longer term for treatment, and given akathisia do not wish to use Clozaril and other AAP ongoing likelihood of akathisia so will retrial Seroquel titration to 200mg watching energy, and monitoring for nighttime urination. Patient affirms understanding history and current situation reviewed and she agrees with this plan as it supports multiple symptoms and leads to reduction of polypharmacy. Present on Admission?: Yes (4) Cognitive disorder: 10/06/18 - I am concerned about her cognition as her overall MMSE-like assessment was near normal outside of a few points, but her CLOX was notably poor indicating poor executive function concerns. Again I will need to revewi PCM's records to see what labs and studies have been done to r/u reversible causes of cognitive decline. TSH WNL, LFTs WNL. Furthermore morphine and zyprexa and residual VPA can contribute to poor cognition. WIll add MVI for now to support. 10/07 - review of remainder of labs from Dr Davis cited in 10/07 note B12, cbc, CMP vit D all WNL, could be h/o alcohol, polypharmacy with narcotic and AAP, and VPA although the latter has been stopped. There are no focal findings on exam. CLOX I indicates frontal lobe/executive issues but no other obvious release signs or personality changes or overt disinhibition. Recommend referral to neuropsych testing at [facility] after discharge for further characterization of her deficits as they may be pseudo dementia of depression or medications or both. Present on Admission?: Yes (5) Anxiety: 10/06/18 - remeron off label, zyprexa off label 10/07/18 - off remeron onto seroquel may have some off label help for sleep and anxiety, supportive therapy on milieu as patient works through some roots of anxiety in divulging her medication diversion Present on Admission?: Yes (6) Chronic pain: 10/06/18 - continue home dose of morphine (if Remeron not effective for mood consider SNRI desvenlafaxine with caution) 10/07/18 - patient admits to real pain but taking her morphine less than prescribed for many years and up until recently diverting the rest for money, she states she has recently changed this practice but is concerned about how to tell her doctors and the emerging financial strain now that she is no longer diverting her medications. This is a major source of her anxiety, possibly contributing to depression and weight loss as well. - request the weekday team help her to tell her PCM and psychiatrist, and then to work out possible relationship with pain clinic for [place] or related opiate agonist/antagonist so that her pain can be treated and not diverted if possible. 10/08 -Patient too distraught, psychotic, and disorganized today to address this. Present on Admission?: Yes Inventory Assets Strengths: voluntary, good rapport with outpatient MD Needs: support, further medical record reveiw and outpatient f/u Risk Factors Assessment Male: No : Yes Do You Have Access To A Gun?: No Health Problems: Yes Mental Health Diagnoses: Yes Substance Use Disorders: No Previous Attempt: No Family History of Suicide: No Previous Psychiatric Hospitalization: Yes Hopelessness: Yes Smoker: Yes Protective Factors Assessment Anabaptism Beliefs: Yes : No Employed: No (Disability for back pain from [employer]) Good Rapport with Provider: Yes Interval History Identifying Information ALINA STONE is a 58-year-old F who currently lives in [facility], has her own home but presently staying with a friend "to help her," who has a history of Bipolar disorder and was admitted on 10/06/18 00:28 on a 201 voluntary status for restlessness, anxiety, racing thoughts and thoughts of wanting to . Chief Complaint "I'm scattered, all over the place, just afraid of dying". Review of Systems Notes Constipation, nausea Sleep Information Total Hours of Sleep: 0.25 Sleep Comments: pt layed in bed for about 1.5 hrs, but appeared to be asleep for about 15 minutes. pt ate snack of banana and crackers. pt remained in room most of the night. pt with flat affect. pt on q-15 minute checks. Meal Information Percent Meal Consumed - Breakfast: 75 Percent Meal Consumed - Lunch: 100 Percent Meal Consumed - Dinner: 100 Subjective Subjective Patient was seen & assessed and interval progress reviewed with Treatment Team. Staff report she has been highly anxious, was unable to tolerate groups yesterday and left after a few minutes, and slept only 15 minutes overnight. She reported restlessness and received as needed morphine overnight for back pain. She rated her mood a 1 out of 10, and told staff last evening that she believed she was going to if she had not been eating or drinking enough. Staff were unable to reassure her even after pointing out that she had been eating all of her meals and drinking fluids. She disclosed to staff that she stopped all of her medications after discharge from the [facility] because she did not believe she needed them. On my assessment, she reports she is "all over the place" and "just afraid of dying," as she was "brought up with God, but I got off track, listening to other people about their beliefs...." She thinks she will "soon, today, because of my behavior." She thinks she has "high blood pressure" which will cause her (BP this am 156/95), and says her feet are also cold, which is a sign of impending . Although she says she doesn't want to , she also reports suicidal thoughts, with a plan to starve herself, and says she hasn't been eating very much for weeks (BMI 15.4). She is not sure how much weight she's lost, stating she gained some weight while hospitalized at [facility]. Sleep has been disrupted, with frequent awakening. Mood is "all over the place," with anger, d epression, anxiety, and confusion. She feels on edge and irritable, but has been going to some groups, although she doesn't feel able to participate. She did leave group early yesterday due to anxiety. She denies vomiting, but reports nausea and constipation. She reports she has to force herself to shower, put on clean clothes, and brush her teeth. She hasn't talked to anyone since admission, stating she would like to contact them but "it's too late for that, because I'm dying!" She is able to admit that it's possible that is not imminent and that her thoughts of are related to anxiety. She says it helps to focus on her love for her son and grandson, but doesn't want to call them as "I think it's too late, I'll be gone today." She indicates willingness to trial lamotrigine, although she has little hope that she will live long enough to see the effects. She also requests medication for constipation. Physical Exam Psychiatric Orientation: alert and cooperative Apperance: appropriately dressed and + disheveled Thin, appears significantly older than stated age. Eye Contact: good eye contact (Staring) Motor Behavior: steady gait and station Restless, shifting frequently in her chair Minimal speech, delayed response Affect: + depressed affect, + anxious affect and + constricted affect Mood: + depressed mood and + anxious mood Thought Process: + perseveration (On her belief that she will today) and + concrete thought process Thought Content: + preoccupation, + cognitive distortions and + delusions (That she is going to today) Suicidal Thoughts: + reports suicidal thoughts Plan to starve herself to Homicidal Thoughts: denies homicidal thoughts Hallucinations: no auditory hallucinations and no visual hallucinations Cognition: language grossly intact; + recent memory not intact, + remote memory not intact and + attention not intact Insight: + impaired insight Judgement: + impaired judgement Vital Signs (Past 24 Hours) Last Vital Signs Temp 36.5 C 10/08/18 06:59 Pulse 94 H 10/08/18 07:00 Resp 20 10/08/18 06:59 BP 156/95 H 10/08/18 07:00 Pulse Ox 98 10/06/18 01:41 Results & Data Current Inpatient Medications Current Inpatient Medications: Current Inpatient Medications Acetaminophen (Tylenol) 650 mg PO Q4H PRN PRN Reason: Headache or Minor Fever Stop: 11/05/18 01:21 Al Hydrox/Mg Hydrox/Simethicone (Maalox) 30 ml PO Q4H PRN PRN Reason: GI Upset Stop: 11/05/18 01:21 Atorvastatin Calcium (Lipitor) 20 mg PO QAM [facility] Stop: 11/05/18 08:59 Last Admin: 10/08/18 08:27 Dose: 20 mg Documented by: Bismuth Subsalicylate (Kaopectate) 15 ml PO PRN PRN PRN Reason: Loose Stool Stop: 11/05/18 01:21 Hydroxyzine HCl (Vistaril) 25 mg PO Q4H PRN PRN Reason: Anxiety Stop: 11/05/18 01:21 Last Admin: 10/08/18 08:33 Dose: 25 mg Documented by: Magnesium Hydroxide (Milk Of Magnesia) 30 ml PO DAILY PRN PRN Reason: Heartburn Stop: 11/05/18 01:21 Morphine Sulfate (Ms Contin) 30 mg PO HS [facility] Stop: 10/20/18 21:59 Last Admin: 10/07/18 20:31 Dose: 30 mg Documented by: Morphine Sulfate (Morphine Sulfate Ir) 15 mg PO Q6 PRN PRN Reason: Pain Stop: 10/20/18 01:29 Last Admin: 10/08/18 04:18 Dose: 15 mg Documented by: Multivitamins (Multivitamin Tab) 1 tab PO QAM SHUN Stop: 11/05/18 08:59 Last Admin: 10/08/18 08:27 Dose: 1 tab Documented by: Nicotine (Nicoderm Cq) 21 mg TD QAM SHUN Stop: 11/05/18 08:59 Last Admin: 10/08/18 08:27 Dose: 21 mg Documented by: Nicotine Polacrilex (Nicorette 2mg) 1 piece MT UD PRN PRN Reason: Nicotine Withdrawal Stop: 11/05/18 01:21 Quetiapine Fumarate (Seroquel) 200 mg PO HS SHUN Stop: 11/07/18 21:59 Sodium Chloride ([place] Nasal) 1 - 2 sprays NA PRN PRN PRN Reason: Nasal Dryness/Congestion Stop: 11/05/18 01:21 Mental Health & Subst Abuse Tx Psychiatrist Date of Appointment with Psychiatrist: 10/12/18 Time of Appointment with Psychiatrist: 9:50am Therapist Name of Therapist: None Strategic Marketing Specialist Name of Strategic Marketing Specialist: None Post Discharge Appointments Primary Care Physician Name Of Family Doctor: Dr. Yovany Davis Date of Appointment with PCP: 10/09/18 CPT Code CPT Code 50917 (1) Bipolar disorder Active/Remission status: currently active Current bipolar episode type: dep ressed Current episode severity: severe Psychotic features: with psychotic features Qualified Code(s): F31.5 - Bipolar disorder, current episode depressed, severe, with psychotic features
[2018-10-08] MEDS: lamoTRIgine 25 MG TAB PO SCH (10:56)
[2018-10-08 15:29] LABS: Codeine Urine NEGATIVE NG/ML (CUTOFF=50); Hydrocodone Urine NEGATIVE NG/ML (CUTOFF=50); Hydromor Urine 195 NG/ML (CUTOFF=50); Morphine Urine 12100 NG/ML (CUTOFF=50); Norhydrocodone Conf Ur NEGATIVE NG/ML (CUTOFF=50); Noroxycodone Urine NEGATIVE NG/ML (CUTOFF=50); Oxycodone Urine NEGATIVE NG/ML (CUTOFF=50); Oxymorph Urine NEGATIVE NG/ML (CUTOFF=50)
[2018-10-08] MEDS: QUETIAPINE FUMARATE 200 MG TAB PO SCH (20:31)
[2018-10-08] MEDS: MoRPHine SULFATE CR 15 MG TABCR PO SCH (20:31)
[2018-10-08] MEDS: QUETIAPINE FUMARATE 25 MG TABLET PO PRN (20:33)
[2018-10-09] MEDS: MoRPHine SULFATE IR 15 MG TAB (IMMEDIATE RELEASE) PO PRN (05:01)
[2018-10-09] MEDS: MAGNESIUM HYDROXIDE SUSP 30 ML UDC PO PRN ×2 (05:05→15:32)
[2018-10-09] MEDS: ATORVASTATIN 20 MG TAB PO SCH (08:01)
[2018-10-09] MEDS: lamoTRIgine 25 MG TAB PO SCH (08:01)
[2018-10-09] MEDS: MULTIVITAMIN TAB PO SCH (08:01)
[2018-10-09] MEDS: NICOTINE 21 MG/24 HR TDSY TD SCH (08:01)
--- NOTE | 2018-10-09 11:04 | Psychiatric Progress Note ---
Date of Service October 09, 2018 Impression / Recommendations Impression 58yo female that presents with low mood, restlessness, anxiety, and SI in the context of poor p.o. intake, low body weight with BMI of 15.4, and delusions that she is going to today. She was just discharged from [facility] 5 days prior, where she was treated for similar symptoms, but was noncompliant with medications after discharge, not believing she needed them. She has poor outpatient supports and limited outpatient treatment, with only a psychiatrist and PCP, but no therapist or patient case manager. Minimal participation in groups, but responds well for short periods of time with reassurance from staff and peers. Multiple medication changes have been made to address mood, anxiety, psychotic, and sleep symptoms: Initially Depakote was discontinued, olanzapine 10 mg at bedtime continued, and mirtazapine started; but due to concerns for akathisia, olanzapine was discontinued and quetiapine started. Mirtazapine was discontinued due to concerns of oversedation, and a trial of lamotrigine was discussed but she was too anxious to consent yesterday. Pt is tolerating initiation of lamotrigine 25mg. She continues to receive quetiapine 200mg qHS with additional 50mg dose as needed at HS for sleep. Quetiapine 25mg BID at 0900 and 1400 has been ordered as well in attempts to target daytime anxiety and disorganized thought. She continues to perseverate on the guilt she feels for selling her morphine; and when not think about this, she is experiencing racing thoughts regarding her financial situation and not being able to make ends meet without that additional income. Inpatient treatment remains medically necessary due to the severity of her symptoms, and ability to provide for her own basic needs without inpatient level of care, and risk for harm to herself if discharged. (1) Suicidal ideation: 10/06 and 10/07 - inpatient is least restrictive and most appropriate setting for care given multiple risk factors, passive SI, hopelessness, pain, poor sleep, restlessness. 10/08 -patient endorsing suicidal thoughts with a plan to starve herself, and reports that she has been restricting intake with unknown amount of weight loss. She is underweight with BMI 15.4. Continue to monitor p.o. intake and encourage good nutrition. 10/09 - Pt denies active SI, but continues to believe that she is "reaching the end" and that is imminent, which further contributes to her anxiety (2) Bipolar disorder: 10/06 - She had been stable for many years on Zyprexa +/- Depakote and trazodone although occasional low moods often seasonally mediated and anxiety at times failing Cymbalta due to PANIAGUA's. Given this history I would like to keep her on a mood stabilizer but am concerned about hair loss and tremor and possible compounded cognitive impairment with Depakote so I held this, so will keep Zyprexa 10mg for now.stop Depakote, continue Zyprexa 10mg, start Remeron 15mg/hs 10/07 - stopped zyprexa to r/o akathisia (5mg tonight then off), returned to Seroquel (due to sedation stopped Remeron as well) 100mg tonight then 200mg thereafter with hope would stabilize, help depression and off label help sleep and anxiety, initial target dose if 200mg watching to assure not too fatigued as per last trial t 300mg when she had enuresis and daytime fatigue. She is now at lowered dose of morphine so fatigue and oversedation less likely Strongly consider Lamictal for mood stabilization, due to h/o break through depression on Seroquel in the noel, titration briefly discussed today but patient was too overwhelmed to consent. 10/08 -Continue quetiapine 200 mg at bedtime, and at 50 mg as needed dose for sleep. Reviewed the risks, benefits, and side effects of lamotrigine, which was also reviewed with her yesterday, including the risk of serious rash/SJS. She agreed to a trial, and will start 25 mg daily. -Order fasting labs for monitoring on an atypical antipsychotic. 10/09 - Planning to initiate quetiapine 25mg BID at 0900 and 1400; will order 25mg q4h prn for anxiety/disorganized thoughts. Will continue quetiapine 200mg at bedtime with 50mg additional dose as needed for sleep. - Will attempt to get fasting labs tomorrow morning, as patient had eaten overnight and the blood test could not be completed today - Continue lamotrigine 25mg daily (3) Akathisia: 10/06/18 - possibly neuroleptic induced, worsened by anxiety. Working theory is lowered dose of morphine uncovered akathisia caused by Zyprexa need to gather more history to consider need for AAP vs. mood stabilizer or both and prior response to other meds, would like to avoid anticholinergics given cognitive concerns 10/07/18 - she is having insomnia, needs mood stabilization and antidepressant, she did have some fatigue on 300mg but now on lowered dose of morphine. There were possibly two instances of enuresis but 200mg consistently was never tested over longer term for treatment, and given akathisia do not wish to use Clozaril and other AAP ongoing likelihood of akathisia so will retrial Seroquel titration to 200mg watching energy, and monitoring for nighttime urination. Patient affirms understanding history and current situation reviewed and she agrees with this plan as it supports multiple symptoms and leads to reduction of polypharmacy. 10/09 - Unclear if tremor and restlessness is true akathisia or related to anxiety - as it is not constant and appears to be worse when anxiety is highest - Continue to observe, but will refrain from treating with additional medication at this time - No evidence of cogwheeling or dystonia on physical exam (4) Cognitive disorder: 10/06/18 - I am concerned about her cognition as her overall MMSE-like assessment was near normal outside of a few points, but her CLOX was notably poor indicating poor executive function concerns. Again I will need to revewi PCM's records to see what labs and studies have been done to r/u reversible causes of cognitive decline. TSH WNL, LFTs WNL. Furthermore morphine and zyprexa and residual VPA can contribute to poor cognition. WIll add MVI for now to support. 10/07 - review of remainder of labs from Dr Davis cited in 10/07 note B12, cbc, CMP vit D all WNL, could be h/o alcohol, polypharmacy with narcotic and AAP, and VPA although the latter has been stopped. There are no focal findings on exam. CLOX I indicates frontal lobe/executive issues but no other obvious release signs or personality changes or overt disinhibition. Recommend referral to neuropsych testing at [facility] after discharge for further characterization of her deficits as they may be pseudo dementia of depression or medications or both. (5) Anxiety: 10/06/18 - remeron off label, zyprexa off label 10/07/18 - off remeron onto seroquel may have some off label help for sleep and anxiety, supportive therapy on milieu as patient works through some roots of anxiety in divulging her medication diversion 10/09 - Quetiapine 25mg BID at 0900 and 1400 - with prn doses available q4h prn - Continue supportive therapy and engage patient in groups and active coping strategies as able (6) Chronic pain: 10/06/18 - continue home dose of morphine (if Remeron not effective for mood consider SNRI desvenlafaxine with caution) 10/07/18 - patient admits to real pain but taking her morphine less than prescribed for many years and up until recently diverting the rest for money, she states she has recently changed this practice but is concerned about how to tell her doctors and the emerging financial strain now that she is no longer diverting her medications. This is a major source of her anxiety, possibly contributing to depression and weight loss as well. - request the weekday team help her to tell her PCM and psychiatrist, and then to work out possible relationship with pain clinic for [place] or related opiate agonist/antagonist so that her pain can be treated and not diverted if possible. 10/08 -Patient too distraught, psychotic, and disorganized today to address this. 10/09 - Continues to verbalize pain; states it is manageable Inventory Assets Strengths: voluntary, good rapport with outpatient MD Needs: support, further medical record reveiw and outpatient f/u Risk Factors Assessment Male: No : Yes Do You Have Access To A Gun?: No Health Problems: Yes Mental Health Diagnoses: Yes Substance Use Disorders: No Previous Attempt: No Family History of Suicide: No Previous Psychiatric Hospitalization: Yes Hopelessness: Yes Smoker: Yes Protective Factors Assessment Voodoo Beliefs: Yes : No Employed: No (Disability for back pain from [employer]) Good Rapport with Provider: Yes Interval History Identifying Information ALINA STONE is a 58-year-old F who currently lives in [facility], has her own home but presently staying with a friend "to help her," who has a history of Bipolar disorder and was admitted on 10/06/18 00:28 on a 201 voluntary status for restlessness, anxiety, racing thoughts and thoughts of wanting to . Chief Complaint "Things were going pretty smoothly, but I think I hit the end of my road." Review of Systems Notes Constitutional: reports "restlessness" Cardiovascular: denied Respiratory: denied Gastrointestinal: denied Neurological: reporting current "shaking" with visible tremor at this time Psychiatric: denies symptoms other than stated above Total of at least 10 systems reviewed, pertinent positives as above and in HPI. Sleep Information Total Hours of Sleep: 3.75 Sleep Comments: pt appeared to have difficulties remaining asleep. pt awoke @0300 and thereafter. pt snack on an apple and orange, along with c/o stomach discomfort. rn awared. pt appeared restless and wanting staff attention. pt on q-15 minute checks Meal Information Percent Meal Consumed - Breakfast: 75 Percent Meal Consumed - Lunch: 80 Percent Meal Consumed - Dinner: 25 Subjective Subjective Patient was seen & assessed and interval progress reviewed with Nursing and social work. Staff reports the patient was rather restless last evening and has been experiencing anxiety. She continues to feel guilty about selling her morphine, and often reports this to staff. Pt was seen today to assess progress since admission. Pt states she is feeling worse today, "bottomed out again." She reports increased anxiety and feeling as though she has reached the "end of my road." Pt states she had a conversation with a chief of staff doctor, but remains concerned about her weight loss, other further insinuating that she is dying. Pt reports, "my anxiety is higher and my thoughts are more confusing." Pt verbalizes some difficulty completing laundry today, reporting significant guilt about not being aware she had to wash her own hospital-issued socks. Her guilt about this situation is nearly equal to that of selling her morphine. T hroughout conversation discussing medication adjustments, the patient verbalizes that she's not sure the changes will "do any good, I think it's too late." Pt seems reassured by staff's confidence that her condition will improve and responds well to these comments for a short-time, before becoming anxious yet again. Pt denies active SI, but continues to believe she is dying soon - "and maybe I'm wrong, but maybe I'm right too." Out of the blue, patient states, "and I know you have me on camera." Pt was asked to explain the comment, and states, "I see the monitors in that room." Pt clarified that she is aware the cameras are only present in common areas on the unit and that she is not constantly being watched by staff. Despite this, patient states she does not feel particularly safe in the hospital. She denies other needs or concerns, but is agreeable to medications to help with anxiety. Physical Exam Psychiatric Orientation: alert, oriented x 3 and cooperative (superficially) Apperance: appropriately dressed (casually, in jeans and t-shirt) and appropriately groomed Eye Contact: good eye contact (but staring, limited blinking) Motor Behavior: + psychomotor agitation (restlessness, frequent swtiching legs, changing positions) and + tremor (mild, full-body tremor ) Speech: normal rate/rhythm/volume of speech (anxious tone) Affect: + anxious affect Mood: + anxious mood Thought Process: + perseveration (on anxious thought and level of guilt ) and + concrete thought process Thought Content: + preoccupation (with belief she is dying, level of anxiety, and excessive guilt), + hopelessness (regularly verbalizing belief she is at the "end of the road") and + guilt Suicidal Thoughts: denies suicidal thoughts and denies suicidal intent but continues to believe she is dying Homicidal Thoughts: denies homicidal thoughts Hallucinations: no auditory hallucinations and no visual hallucinations Cognition: language grossly intact Estimated Intelligence: consistent with education level Insight: + impaired insight Judgement: + impaired judgement Vital Signs (Past 24 Hours) Last Vital Signs Temp 36.5 C 10/09/18 06:52 Pulse 103 H 10/09/18 06:53 Resp 16 10/09/18 06:52 BP 124/80 10/09/18 06:53 Pulse Ox 98 10/06/18 01:41 Results & Data Laboratory Results Laboratory Results - last 24 hr 10/05/18 10/09/18 19:20 03:44 POC Glucose 97 U Codeine Confrm GC/MS NEGATIVE Ur Morphine (GC/MS) 21368 A Ur Hydrocodone (GC/MS) NEGATIVE Ur Norhydrocodone NEGATIVE Ur Noroxycodone NEGATIVE Urine Oxycodone (GC/MS) NEGATIVE U Oxymorphone GC/MS NEGATIVE Ur Hydromorphone (GC/MS) 195 A Current Inpatient Medications Current Inpatient Medications: Current Inpatient Medications Acetaminophen (Tylenol) 650 mg PO Q4H PRN PRN Reason: Headache or Minor Fever Stop: 11/05/18 01:21 Al Hydrox/Mg Hydrox/Simethicone (Maalox) 30 ml PO Q4H PRN PRN Reason: GI Upset Stop: 11/05/18 01:21 Atorvastatin Calcium (Lipitor) 20 mg PO [facility] Stop: 11/05/18 08:59 Last Admin: 10/09/18 08:01 Dose: 20 mg Documented by: Bismuth Subsalicylate (Kaopectate) 15 ml PO PRN PRN PRN Reason: Loose Stool Stop: 11/05/18 01:21 Hydroxyzine HCl (Vistaril) 25 mg PO Q4H PRN PRN Reason: Anxiety Stop: 11/05/18 01:21 Last Admin: 10/09/18 10:30 Dose: 25 mg Documented by: Lamotrigine (Lamictal) 25 mg PO [facility] Stop: 11/07/18 09:29 Last Admin: 10/09/18 08:01 Dose: 25 mg Documented by: Magnesium Hydroxide (Milk Of Magnesia) 30 ml PO DAILY PRN PRN Reason: Heartburn Stop: 11/05/18 01:21 Last Admin: 10/09/18 05:05 Dose: 30 ml Documented by: Morphine Sulfate (Ms Contin) 30 mg PO [facility] Stop: 10/20/18 21:59 Last Admin: 10/08/18 20:31 Dose: 30 mg Documented by: Morphine Sulfate (Morphine Sulfate Ir) 15 mg PO Q6 PRN PRN Reason: Pain Stop: 10/20/18 01:29 Last Admin: 10/09/18 05:01 Dose: 15 mg Documented by: Multivitamins (Multivitamin Tab) 1 tab PO [facility] Stop: 11/05/18 08:59 Last Admin: 10/09/18 08:01 Dose: 1 tab Documented by: Nicotine (Nicoderm Cq) 21 mg TD [facility] Stop: 11/05/18 08:59 Last Admin: 10/09/18 08:01 Dose: 21 mg Documented by: Nicotine Polacrilex (Nicorette 2mg) 1 piece MT UD PRN PRN Reason: Nicotine Withdrawal Stop: 11/05/18 01:21 Quetiapine Fumarate (Seroquel) 200 mg PO [facility] Stop: 11/07/18 21:59 Last Admin: 10/08/18 20:31 Dose: 200 mg Documented by: Quetiapine Fumarate (Seroquel) 50 mg PO HS PRN PRN Reason: Insomnia Stop: 11/07/18 21:59 Last Admin: 10/08/18 20:33 Dose: 50 mg Documented by: Sodium Chloride (Nolan Nasal) 1 - 2 sprays NA PRN PRN PRN Reason: Nasal Dryness/Congestion Stop: 11/05/18 01:21 Mental Health & Subst Abuse Tx Psychiatrist Name of Psychiatrist: Kim Mendoza - Dr. Borden Psychiatrist's Date of Appointment with Psychiatrist: 10/19/18 Time of Appointment with Psychiatrist: 9:50 am Psychiatric Appointment Comment: [address] 10/24@11:30 Therapist Name of Therapist: [facility] - Manuel Weiner Therapist's Date of Therapist Appointment: 10/15/18 Time of Therapist Appointment: 3:00 p.m. Therapy Appointment Comment: [address] [place], [place] Car Parker Name of Car Parker: None Post Discharge Appointments Primary Care Physician Name Of Family Doctor: Dr. Yovany Davis Date of Appointment with PCP: 10/18/18 Time of Appointment with PCP: 9:50am CPT Code CPT Code 07696 (1) Bipolar disorder Active/Remission status: currently active Current bipolar episode type: dep ressed Current episode severity: severe Psychotic features: with psychotic features Qualified Code(s): F31.5 - Bipolar disorder, current episode depressed, severe, with psychotic features
[2018-10-09] MEDS: QUETIAPINE FUMARATE 25 MG TABLET PO SCH (13:38)
[2018-10-09] MEDS: MoRPHine SULFATE CR 15 MG TABCR PO SCH (20:10)
[2018-10-09] MEDS: QUETIAPINE FUMARATE 200 MG TAB PO SCH (20:10)
[2018-10-10] MEDS: QUETIAPINE FUMARATE 25 MG TABLET PO PRN ×3 (00:28→19:26)
[2018-10-10] MEDS: MoRPHine SULFATE IR 15 MG TAB (IMMEDIATE RELEASE) PO PRN (03:33)
[2018-10-10] MEDS: lamoTRIgine 25 MG TAB PO SCH (08:06)
[2018-10-10] MEDS: MULTIVITAMIN TAB PO SCH (08:06)
[2018-10-10] MEDS: ATORVASTATIN 20 MG TAB PO SCH (08:06)
[2018-10-10] MEDS: QUETIAPINE FUMARATE 25 MG TABLET PO SCH ×2 (08:06→13:49)
[2018-10-10] MEDS: NICOTINE 21 MG/24 HR TDSY TD SCH (08:09)
[2018-10-10 08:16] LABS: Glucose Fasting 101 mg/dl (70-99)
[2018-10-10 08:23] LABS: Chol HDL Ratio 2; Cholesterol 173 mg/dl (0-200); HDL Cholesterol 71 mg/dl; LDL Cholesterol Calculated 82 mg/dl; Triglycerides 99 mg/dl (0-150); VLDL Cholesterol 20 mg/dl
--- NOTE | 2018-10-10 13:07 | Psychiatric Progress Note ---
Date of Service October 10, 2018 Impression / Recommendations Impression 58yo female that presents with low mood, restlessness, anxiety, and SI in the context of poor p.o. intake, low body weight with BMI of 15.4, and delusions that she is going to today. She was just discharged from [facility] 5 days prior, where she was treated for similar symptoms, but was noncompliant with medications after discharge, not believing she needed them. She has poor outpatient supports and limited outpatient treatment, with only a psychiatrist and PCP, but no therapist or shoe parts caser. Minimal participation in groups, but responds well for short periods of time with reassurance from staff and peers. Multiple medication changes have been made to address mood, anxiety, psychotic, and sleep symptoms: Initially Depakote was discontinued, olanzapine 10 mg at bedtime continued, and mirtazapine started; but due to concerns for akathisia, olanzapine was discontinued and quetiapine started. Mirtazapine was restarted given persistently limited sleep, will resume at 15mg this evening with ability to reduce dose to 7.5mg if patient appears oversedated. Pt is tolerating initiation of lamotrigine 25mg. She continues to receive quetiapine 200mg qHS with additional 50mg dose as needed at HS for sleep. Quetiapine increased to 50mg BID at 0900 and 1400 in attempts to target daytime anxiety and disorganized thought. She continues to perseverate on the guilt she feels for selling her morphine; and when not think about this, she is experiencing racing thoughts regarding her financial situation and not being able to make ends meet without that additional income. Inpatient treatment remains medically necessary due to the severity of her symptoms, and ability to provide for her own basic needs without inpatient level of care, and risk for harm to herself if discharged. (1) Suicidal ideation: 10/06 and 10/07 - inpatient is least restrictive and most appropriate setting for care given multiple risk factors, passive SI, hopelessness, pain, poor sleep, restlessness. 10/08 -patient endorsing suicidal thoughts with a plan to starve herself, and reports that she has been restricting intake with unknown amount of weight loss. She is underweight with BMI 15.4. Continue to monitor p.o. intake and encourage good nutrition. 10/09 - Pt denies active SI, but continues to believe that she is "reaching the end" and that is imminent, which further contributes to her anxiety (2) Bipolar disorder: 10/06 - She had been stable for many years on Zyprexa +/- Depakote and trazodone although occasional low moods often seasonally mediated and anxiety at times failing Cymbalta due to PANIAGUA's. Given this history I would like to keep her on a mood stabilizer but am concerned about hair loss and tremor and possible compounded cognitive impairment with Depakote so I held this, so will keep Zyprexa 10mg for now.stop Depakote, continue Zyprexa 10mg, start Remeron 15mg/hs 10/07 - stopped zyprexa to r/o akathisia (5mg tonight then off), returned to Seroquel (due to sedation stopped Remeron as well) 100mg tonight then 200mg thereafter with hope would stabilize, help depression and off label help sleep and anxiety, initial target dose if 200mg watching to assure not too fatigued as per last trial t 300mg when she had enuresis and daytime fatigue. She is now at lowered dose of morphine so fatigue and oversedation less likely Strongly consider Lamictal for mood stabilization, due to h/o break through depression on Seroquel in the noel, titration briefly discussed today but patient was too overwhelmed to consent. 10/08 -Continue quetiapine 200 mg at bedtime, and at 50 mg as needed dose for sleep. Reviewed the risks, benefits, and side effects of lamotrigine, which was also reviewed with her yesterday, including the risk of serious rash/SJS. She agreed to a trial, and will start 25 mg daily. -Order fasting labs for monitoring on an atypical antipsychotic. 10/09 - Planning to initiate quetiapine 25mg BID at 0900 and 1400; will order 25mg q4h prn for anxiety/disorganized thoughts. Will continue quetiapine 200mg at bedtime with 50mg additional dose as needed for sleep. - Will attempt to get fasting labs tomorrow morning, as patient had eaten overnight and the blood test could not be completed today - Continue lamotrigine 25mg daily 10/10 - Will titrate daytime doses of quetiapine to 50mg BID with continued 200mg/50mg bedtime dosing - Continue lamotrigine 25mg daily - Will restart mirtazapine at 15mg as patient continues to experience insomnia, receiving on 1.75 hours of sleep last evening (3) Akathisia: 10/06/18 - possibly neuroleptic induced, worsened by anxiety. Working theory is lowered dose of morphine uncovered akathisia caused by Zyprexa need to gather more history to consider need for AAP vs. mood stabilizer or both and prior response to other meds, would like to avoid anticholinergics given cognitive concerns 10/07/18 - she is having insomnia, needs mood stabilization and antidepressant, she did have some fatigue on 300mg but now on lowered dose of morphine. There were possibly two instances of enuresis but 200mg consistently was never tested over longer term for treatment, and given akathisia do not wish to use Clozaril and other AAP ongoing likelihood of akathisia so will retrial Seroquel titration to 200mg watching energy, and monitoring for nighttime urination. Patient affirms understanding history and current situation reviewed and she agrees with this plan as it supports multiple symptoms and leads to reduction of polypharmacy. 10/09 - Unclear if tremor and restlessness is true akathisia or related to anxiety - as it is not constant and appears to be worse when anxiety is highest - Continue to observe, but will refrain from treating with additional medication at this time - No evidence of cogwheeling or dystonia on physical exam (4) Cognitive disorder: 10/06/18 - I am concerned about her cognition as her overall MMSE-like assessment was near normal outside of a few points, but her CLOX was notably poor indicating poor executive function concerns. Again I will need to revewi PCM's records to see what labs and studies have been done to r/u reversible causes of cognitive decline. TSH WNL, LFTs WNL. Furthermore morphine and zyprexa and residual VPA can contribute to poor cognition. WIll add MVI for now to support. 10/07 - review of remainder of labs from Dr Davis cited in 10/07 note B12, cbc, CMP vit D all WNL, could be h/o alcohol, polypharmacy with narcotic and AAP, and VPA although the latter has been stopped. There are no focal findings on exam. CLOX I indicates frontal lobe/executive issues but no other obvious release signs or personality changes or overt disinhibition. Recommend referral to neuropsych testing at [facility] after discharge for further characterization of her deficits as they may be pseudo dementia of depression or medications or both. (5) Anxiety: 10/06/18 - remeron off label, zyprexa off label 10/07/18 - off remeron onto seroquel may have some off label help for sleep and anxiety, supportive therapy on milieu as patient works through some roots of anxiety in divulging her medication diversion 10/09 - Quetiapine 25mg BID at 0900 and 1400 - with prn doses available q4h prn - Continue supportive therapy and engage patient in groups and active coping strategies as able 10/10 - Titrating daytime doses of quetiapine to 50mg BID, continue prn dosing if necessary - Will restart mirtazapine at 15mg this evening to target insomnia and persistent ruminations regarding health and feelings of guilt - If restart of mirtazapine is over-sedating, can consider reducing dose to 7.5mg qHS (6) Chronic pain: 10/06/18 - continue home dose of morphine (if Remeron not effective for mood consider SNRI desvenlafaxine with caution) 10/07/18 - patient admits to real pain but taking her morphine less than prescribed for many years and up until recently diverting the rest for money, she states s he has recently changed this practice but is concerned about how to tell her doctors and the emerging financial strain now that she is no longer diverting her medications. This is a major source of her anxiety, possibly contributing to depression and weight loss as well. - request the weekday team help her to tell her PCM and psychiatrist, and then to work out possible relationship with pain clinic for Butrans or related opiate agonist/antagonist so that her pain can be treated and not diverted if possible. 10/08 -Patient too distraught, psychotic, and disorganized today to address this. 10/09 - Continues to verbalize pain; states it is manageable Inventory Assets Strengths: voluntary, good rapport with outpatient MD Needs: support, further medical record reveiw and outpatient f/u Risk Factors Assessment Male: No : Yes Do You Have Access To A Gun?: No Health Problems: Yes Mental Health Diagnoses: Yes Substance Use Disorders: No Previous Attempt: No Family History of Suicide: No Previous Psychiatric Hospitalization: Yes Hopelessness: Yes Smoker: Yes Protective Factors Assessment Orthodox Beliefs: Yes : No Employed: No (Disability for back pain from [employer]) Good Rapport with Provider: Yes Interval History Identifying Information ALINA STONE is a 58-year-old F who currently lives in [facility], has her own home but presently staying with a friend "to help her," who has a history of Bipolar disorder and was admitted on 10/06/18 00:28 on a 201 voluntary status for restlessness, anxiety, racing thoughts and thoughts of wanting to . Chief Complaint "There is always more time!" Review of Systems Notes Constitutional: denied Cardiovascular: denied Respiratory: denied Gastrointestinal: denied Neurological: reports persistently restless legs Psychiatric: denies symptoms other than stated above Total of at least 10 systems reviewed, pertinent positives as above and in HPI. Sleep Information Total Hours of Sleep: 1.75 Sleep Comments: pt appeared to have difficulties remaining asleep. pt awoke @0300 and thereafter. pt snack on an apple and orange, along with c/o stomach discomfort. rn awared. pt appeared restless and wanting staff attention. pt on q-15 minute checks Meal Information Percent Meal Consumed - Breakfast: 70 Percent Meal Consumed - Lunch: 80 Percent Meal Consumed - Dinner: 100 Subjective Subjective Patient was seen & assessed and interval progress reviewed with Treatment Team. Staff reports the patient continues to have difficulty sleeping. Patient slept a total of 1-3/4 hours last evening, with persistently limited duration of sleep. Patient was successful in completing an intake for an outpatient shoe parts caser yesterday. She continues to verbalize increased guilt and anxiety, and perseverations continue according to staff. Patient was seen today to assess progress since admission. She was agreeable to conversation with this provider, after she abruptly presented to the nurses station declaring, "there is always more time!" Patient states she was told this by her roommate, after she had informed her roommate "there is not much time left." Patient states she was reassured by these words from her roommate and is attempting to continue to remind herself of this. Patient's next comment to this provider was "I think this is the end for me." Patient then shares that she believed that her son had experienced a heart attack today; however, reports that she is aware that he is on vacation with her grandchildren and doing fine. When asked why patient felt her son may be in danger, she states "while I am dying, so I figured he was not doing well either." Patient was asked about her current sleeping pattern, she admits to difficulty sleeping in the evening. Patient was agreeable to retrial of mirtazapine in order to target insomnia. She is also verbalizing increased anxiety, and is willing to trial a higher dose of quetiapine during the day. Patient states her pain remains "manageable." She denies other needs or concerns presently. Physical Exam Psychiatric Orientation: alert, oriented x 3 and cooperative (Superficially, requiring frequent reassurance) Apperance: appropriately dressed (Casually, and longsleeved T-shirt and jeans) and + disheveled Eye Contact: + fair eye contact (Staring, prolonged direct eye contact) Motor Behavior: steady gait and station and + psychomotor agitation (Restlessness, frequently lifting legs up and down while standing) Speech: normal rate/rhythm/volume of speech Affect: + anxious affect and + blunted affect Mood: + anxious mood Thought Process: + perseveration (Continues to return to belief that she is sick and dying) and + concrete thought process Thought Content: + preoccupation (Believes she is dying, anxious ruminations), + hopelessness, + worthlessness and + guilt Suicidal Thoughts: denies suicidal thoughts Patient believes that she will soon, but states "I would hope I would not do anything to hurt myself, I certainly do not want to" when asked about her suicidality Homicidal Thoughts: denies homicidal thoughts Hallucinations: no auditory hallucinations and no visual hallucinations Cognition: language grossly intact; + attention not intact Estimated Intelligence: consistent with education level Insight: + impaired insight Judgement: + impaired judgement Vital Signs (Past 24 Hours) Last Vital Signs Temp 36.4 C L 10/10/18 06:00 Pulse 90 10/10/18 07:04 Resp 16 10/10/18 06:00 BP 136/91 10/10/18 07:04 Pulse Ox 98 10/06/18 01:41 See physical exam by Dr East in the ER 10/05/18 which has been reviewed and accepted for purposes of this H&P Results & Data Laboratory Results Laboratory Results - last 24 hr 10/10/18 07:50 Fasting Glucose 101 H Triglycerides 99 Cholesterol 173 LDL Cholesterol, Calc 82 VLDL Cholesterol, Calc 20 HDL Cholesterol 71 Cholesterol/HDL Ratio 2 Current Inpatient Medications Current Inpatient Medications: Current Inpatient Medications Acetaminophen (Tylenol) 650 mg PO Q4H PRN PRN Reason: Headache or Minor Fever Stop: 11/05/18 01:21 Al Hydrox/Mg Hydrox/Simethicone (Maalox) 30 ml PO Q4H PRN PRN Reason: GI Upset Stop: 11/05/18 01:21 Atorvastatin Calcium (Lipitor) 20 mg PO [facility] Stop: 11/05/18 08:59 Last Admin: 10/10/18 08:06 Dose: 20 mg Documented by: Bismuth Subsalicylate (Kaopectate) 15 ml PO PRN PRN PRN Reason: Loose Stool Stop: 11/05/18 01:21 Hydroxyzine HCl (Vistaril) 25 mg PO Q4H PRN PRN Reason: Anxiety Stop: 11/05/18 01:21 Last Admin: 10/09/18 10:30 Dose: 25 mg Documented by: Lamotrigine (Lamictal) 25 mg PO [facility] Stop: 11/07/18 09:29 Last Admin: 10/10/18 08:06 Dose: 25 mg Documented by: Magnesium Hydroxide (Milk Of Magnesia) 30 ml PO DAILY PRN PRN Reason: Heartburn Stop: 11/05/18 01:21 Last Admin: 10/09/18 15:32 Dose: 30 ml Documented by: Morphine Sulfate (Ms Contin) 30 mg PO [facility] Stop: 10/20/18 21:59 Last Admin: 10/09/18 20:10 Dose: 30 mg Documented by: Morphine Sulfate (Morphine Sulfate Ir) 15 mg PO Q6 PRN PRN Reason: Pain Stop: 10/20/18 01:29 Last Admin: 10/10/18 03:33 Dose: 15 mg Documented by: Multivitamins (Multivitamin Tab) 1 tab PO [facility] Stop: 11/05/18 08:59 Last Admin: 10/10/18 08:06 Dose: 1 tab Documented by: Nicotine (Nicoderm Cq) 21 mg TD [facility] Stop: 11/05/18 08:59 Last Admin: 10/10/18 08:09 Dose: 21 mg Documented by: Nicotine Polacrilex (Nicorette 2mg) 1 piece MT UD PRN PRN Reason: Nicotine Withdrawal Stop: 08/26/19 01:21 Quetiapine Fumarate (Seroquel) 200 mg PO HS SHUN Stop: 11/07/18 21:59 Last Admin: 10/09/18 20:10 Dose: 200 mg Documented by: Quetiapine Fumarate (Seroquel) 50 mg PO HS PRN PRN Reason: Insomnia Stop: 11/07/18 21:59 Last Admin: 10/10/18 00:28 Dose: 50 mg Documented by: Quetiapine Fumarate (Seroquel) 25 mg PO BID@0900,1400 SHUN Stop: 11/08/18 13:59 Last Admin: 10/10/18 08:06 Dose: 25 mg Documented by: Quetiapine Fumarate (Seroquel) 25 mg PO Q4H PRN PRN Reason: anxiety/agitation Stop: 11/08/18 11:44 Sodium Chloride (Toast Nasal) 1 - 2 sprays NA PRN PRN PRN Reason: Nasal Dryness/Congestion Stop: 11/05/18 01:21 Mental Health & Subst Abuse Tx Psychiatrist Name of Psychiatrist: Kim Borden Psychiatrist's Date of Appointment with Psychiatrist: 10/19/18 Time of Appointment with Psychiatrist: 9:50 am Psychiatric Appointment Comment: [address] 10/24@11:30 Therapist Name of Therapist: Kim Weiner Therapist's Date of Therapist Appointment: 10/15/18 Time of Therapist Appointment: 3:00 p.m. Therapy Appointment Comment: [address] [place] Name of Bench Carpenter: None Post Discharge Appointments Primary Care Physician Name Of Family Doctor: Dr. Yovany Davis Date of Appointment with PCP: 10/18/18 Time of Appointment with PCP: 9:50am CPT Code CPT Code 42460 (1) Bipolar disorder Active/Remission status: currently active Current bipolar episode type: depressed Current episode severity: severe Psychotic features: with psychotic features Qualified Code(s): F31.5 - Bipolar disorder, current episode depressed, severe, with psychotic features
[2018-10-10] MEDS: MIRTAZAPINE TAB 15 MG TAB PO SCH (22:45)
[2018-10-10] MEDS: QUETIAPINE FUMARATE 200 MG TAB PO SCH (22:45)
[2018-10-10] MEDS: MoRPHine SULFATE CR 15 MG TABCR PO SCH (22:47)
[2018-10-11] MEDS: lamoTRIgine 25 MG TAB PO SCH (10:07)
[2018-10-11] MEDS: MULTIVITAMIN TAB PO SCH (10:08)
[2018-10-11] MEDS: NICOTINE 21 MG/24 HR TDSY TD SCH (10:08)
[2018-10-11] MEDS: ATORVASTATIN 20 MG TAB PO SCH (10:08)
[2018-10-11] MEDS: QUETIAPINE FUMARATE 25 MG TABLET PO SCH ×2 (10:08→14:54)
--- NOTE | 2018-10-11 11:13 | Psychiatric Progress Note ---
Date of Service October 11, 2018 Impression / Recommendations Impression 58yo female that presents with low mood, restlessness, anxiety, and SI in the context of poor p.o. intake, low body weight with BMI of 15.4, and perseveration on delusions that she is going to at any moment, consistently stating she will not make it through the day. She was [place] [facility] [place], where she was treated for similar symptoms, but was noncompliant with medications after discharge, not believing she needed them. She has poor outpatient supports and limited outpatient treatment, with only a psychiatrist and PCP, but no therapist or pillowcase folder. Multiple medication changes have been made to address mood, anxiety, psychotic, and sleep symptoms: Initially Depakote was discontinued, olanzapine 10 mg at bedtime continued, and mirtazapine started; but due to concerns for akathisia, olanzapine was discontinued and quetiapine started. Lamotrigine started for bipolar depression, and quetiapine is being titrated. Inpatient treatment remains medically necessary due to the severity of her symptoms, and ability to provide for her own basic needs without inpatient level of care, and risk for harm to herself if discharged. (1) Suicidal ideation: 10/06 and 10/07 - inpatient is least restrictive and most appropriate setting for care given multiple risk factors, passive SI, hopelessness, pain, poor sleep, restlessness. 10/08 -patient endorsing suicidal thoughts with a plan to starve herself, and reports that she has been restricting intake with unknown amount of weight loss. She is underweight with BMI 15.4. Continue to monitor p.o. intake and encourage good nutrition. 10/09 - Pt denies active SI, but continues to believe that she is "reaching the end" and that is imminent, which further contributes to her anxiety 10/11 -today patient is reporting to harm herself, and states that she would "probably" tried to end her life if she were not in the hospital. (2) Bipolar disorder: 10/06 - She had been stable for many years on Zyprexa +/- Depakote and trazodone although occasional low moods often seasonally mediated and anxiety at times failing Cymbalta due to PANIAGUA's. Given this history I would like to keep her on a mood stabilizer but am concerned about hair loss and tremor and possible compounded cognitive impairment with Depakote so I held this, so will keep Zyprexa 10mg for now.stop Depakote, continue Zyprexa 10mg, start Remeron 15mg/hs 10/07 - stopped zyprexa to r/o akathisia (5mg tonight then off), returned to Seroquel (due to sedation stopped Remeron as well) 100mg tonight then 200mg thereafter with hope would stabilize, help depression and off label help sleep and anxiety, initial target dose if 200mg watching to assure not too fatigued as per last trial t 300mg when she had enuresis and daytime fatigue. She is now at lowered dose of morphine so fatigue and oversedation less likely Strongly consider Lamictal for mood stabilization, due to h/o break through depression on Seroquel in the , titration briefly discussed today but patient was too overwhelmed to consent. 10/08 -Continue quetiapine 200 mg at bedtime, and at 50 mg as needed dose for sleep. Reviewed the risks, benefits, and side effects of lamotrigine, which was also reviewed with her yesterday, including the risk of serious rash/SJS. She agreed to a trial, and will start 25 mg daily. -Order fasting labs for monitoring on an atypical antipsychotic. 10/09 - Planning to initiate quetiapine 25mg BID at 0900 and 1400; will order 25mg q4h prn for anxiety/disorganized thoughts. Will continue quetiapine 200mg at bedtime with 50mg additional dose as needed for sleep. - Will attempt to get fasting labs tomorrow morning, as patient had eaten overnight and the blood test could not be completed today - Continue lamotrigine 25mg daily 10/10 - Will titrate daytime doses of quetiapine to 50mg BID with continued 200mg/50mg bedtime dosing - Continue lamotrigine 25mg daily - Will restart mirtazapine at 15mg as patient continues to experience insomnia, receiving only 1.75 hours of sleep last evening 10/11 -Continue current medications; quetiapine just increased yesterday with scheduled dosing throughout the day as well as as needed dose; continue to titrate to effective dose. Sleep improved with resumption of mirtazapine. (3) Akathisia: 10/06/18 - possibly neuroleptic induced, worsened by anxiety. Working theory is lowered dose of morphine uncovered akathisia caused by Zyprexa need to gather more history to consider need for AAP vs. mood stabilizer or both and prior response to other meds, would like to avoid anticholinergics given cognitive concerns 10/07/18 - she is having insomnia, needs mood stabilization and antidepressant, she did have some fatigue on 300mg but now on lowered dose of morphine. There were possibly two instances of enuresis but 200mg consistently was never tested over longer term for treatment, and given akathisia do not wish to use Clozaril and other AAP ongoing likelihood of akathisia so will retrial Seroquel titration to 200mg watching energy, and monitoring for nighttime urination. Patient affirms understanding history and current situation reviewed and she agrees with this plan as it supports multiple symptoms and leads to reduction of polypharmacy. 10/09 - Unclear if tremor and restlessness is true akathisia or related to anxiety - as it is not constant and appears to be worse when anxiety is highest - Continue to observe, but will refrain from treating with additional medication at this time - No evidence of cogwheeling or dystonia on physical exam (4) Cognitive disorder: 10/06/18 - I am concerned about her cognition as her overall MMSE-like assessment was near normal outside of a few points, but her CLOX was notably poor indicating poor executive function concerns. Again I will need to revewi PCM's records to see what labs and studies have been done to r/u reversible causes of cognitive decline. TSH WNL, LFTs WNL. Furthermore morphine and zyprexa and residual VPA can contribute to poor cognition. WIll add MVI for now to support. 10/07 - review of remainder of labs from Dr Davis cited in 10/07 note B12, cbc, CMP vit D all WNL, could be h/o alcohol, polypharmacy with narcotic and AAP, and VPA although the latter has been stopped. There are no focal findings on exam. CLOX I indicates frontal lobe/executive issues but no other obvious release signs or personality changes or overt disinhibition. Recommend referral to neuropsych testing at [facility] after discharge for further characterization of her deficits as they may be pseudo dementia of depression or medications or both. (5) Anxiety: 10/06/18 - remeron off label, zyprexa off label 10/07/18 - off remeron onto seroquel may have some off label help for sleep and anxiety, supportive therapy on milieu as patient works through some roots of anxiety in divulging her medication diversion 10/09 - Quetiapine 25mg BID at 0900 and 1400 - with prn doses available q4h prn - Continue supportive therapy and engage patient in groups and active coping strategies as able 10/10 - Titrating daytime doses of quetiapine to 50mg BID, continue prn dosing if necessary - Will restart mirtazapine at 15mg this evening to target insomnia and persistent ruminations regarding health and feelings of guilt - If restart of mirtazapine is over-sedating, can consider reducing dose to 7.5mg qHS (6) Chronic pain: 10/06/18 - continue home dose of morphine (if Remeron not effective for mood consider SNRI desvenlafaxine with caution) 10/07/18 - patient admits to real pain but taking her morphine less than prescribed for many years and up until recently diverting the rest for money, she states she has recently changed this practice but is concerned about how to tell her doctors and the emerging financial strain now that she is no longer diverting her medications. This is a major source of her anxiety, possibly contributing to depression and weight loss as well. - request the weekday team help her to tell her PCM and psychiatrist, and then to work out possible relationship with pain clinic for [place] or related opiate agonist/antagonist so that her pain can be treated and not diverted if possible. 10/08 -Patient too distraught, psychotic, and disorganized today to address this. 10/09 - Continues to verbalize pain; states it is manageable 10/11 -Patient endorses guilt at times related to selling her prescribed morphine, and this has not yet been addressed with her PCP, who is out of the office until next week. The patient remains to distraught and psychotic to process this, so will revisit it next week. Inventory Assets Strengths: voluntary, good rapport with outpatient MD Needs: support, further medical record reveiw and outpatient f/u Risk Factors Assessment Male: No : Yes Do You Have Access To A Gun?: No Health Problems: Yes Mental Health Diagnoses: Yes Substance Use Disorders: No Previous Attempt: No Family History of Suicide: No Previous Psychiatric Hospitalization: Yes Hopelessness: Yes Smoker: Yes Protective Factors Assessment Quaker Beliefs: Yes : No Employed: No (Disability for back pain from [employer]) Good Rapport with Provider: Yes Interval History Identifying Information ALINA STONE is a 58-year-old F who currently lives in [facility], has her own home but presently staying with a friend "to help her," who has a history of Bipolar disorder and was admitted on 10/06/18 00:28 on a 201 voluntary status for restlessness, anxiety, racing thoughts and thoughts of wanting to . Chief Complaint "My son's already gotten a phone call that I'm gone, I just know it, a mother's intuition". Review of Systems Notes shaking of upper body, patient reports present "a long time" Sleep Information Total Hours of Sleep: 6.25 Sleep Comments: Patient appeared to sleep well. Meal Information Percent Meal Consumed - Breakfast: 70 Percent Meal Consumed - Lunch: 5 Percent Meal Consumed - Dinner: 100 Subjective Subjective Patient was seen & assessed and interval progress reviewed with Nursing and social work. Staff report she slept better last night, but remains highly anxious, which vacillates throughout the day. She continues to state that she is going to at any moment, and has been calling her sister repeatedly and telling her that, to the point that staff have had to turn the phone off. She reports slow thoughts and confusion, disorientation (states the year is 19 something, "I can't even say, I can't guess"), but knows the month and name of the hospital. She states she is not eating much as she has no appetite. She says she "wants to be , but I don't want to be , you know what I mean?" She struggles to explain this further. She says she would "probably" do something to hurt herself if she weren't in the hospital. She is trying to drink a lot of fluids. She got two doses of quetiapine 25mg yesterday and cannot say if it was helpful. In discussing recommendations to increase her medication, she agrees, but then says "but I think it's too late," "I know my son thinks I'm ," "I have forsaken God," "I'm out of time." Physical Exam Psychiatric Orientation: alert, oriented to person, oriented to place and cooperative; + not oriented to time Apperance: appropriately dressed Very thin, appears significantly older than her stated age Eye Contact: good eye contact Motor Behavior: steady gait and station whole upper body tremulous Speech: normal rate/rhythm/volume of speech Affect: + anxious affect, + constricted affect and mood congruent with affect Mood: + anxious mood Thought Process: + perseveration on her impending Thought Content: + preoccupation, + cognitive distortions, + delusions, + hopelessness and + guilt Suicidal Thoughts: + reports suicidal thoughts Homicidal Thoughts: denies homicidal thoughts Hallucinations: no auditory hallucinations and no visual hallucinations Cognition: + recent memory not intact, + remote memory not intact and + attention not intact Insight: + impaired insight Judgement: + impaired judgement Vital Signs (Past 24 Hours) Last Vital Signs Temp 36.2 C L 10/11/18 06:00 Pulse 105 H 10/11/18 06:45 Resp 16 10/11/18 06:00 BP 152/82 H 10/11/18 06:45 Pulse Ox 98 10/06/18 01:41 See physical exam by Dr East in the ER 10/05/18 which has been reviewed and accepted for purposes of this H&P Results & Data Current Inpatient Medications Current Inpatient Medications: Current Inpatient Medications Acetaminophen (Tylenol) 650 mg PO Q4H PRN PRN Reason: Headache or Minor Fever Stop: 11/05/18 01:21 Al Hydrox/Mg Hydrox/Simethicone (Maalox) 30 ml PO Q4H PRN PRN Reason: GI Upset Stop: 11/05/18 01:21 Atorvastatin Calcium (Lipitor) 20 mg PO QAM SHUN Stop: 11/05/18 08:59 Last Admin: 10/11/18 10:08 Dose: 20 mg Documented by: Bismuth Subsalicylate (Kaopectate) 15 ml PO PRN PRN PRN Reason: Loose Stool Stop: 11/05/18 01:21 Hydroxyzine HCl (Vistaril) 25 mg PO Q4H PRN PRN Reason: Anxiety Stop: 11/05/18 01:21 Last Admin: 10/09/18 10:30 Dose: 25 mg Documented by: Lamotrigine (Lamictal) 25 mg PO QAM SHUN Stop: 11/07/18 09:29 Last Admin: 10/11/18 10:07 Dose: 25 mg Documented by: Magnesium Hydroxide (Milk Of Magnesia) 30 ml PO DAILY PRN PRN Reason: Heartburn Stop: 11/05/18 01:21 Last Admin: 10/09/18 15:32 Dose: 30 ml Documented by: Mirtazapine (Remeron) 15 mg PO [facility] Stop: 11/09/18 21:59 Last Admin: 10/10/18 22:45 Dose: 15 mg Documented by: Morphine Sulfate (Ms Contin) 30 mg PO [facility] Stop: 10/20/18 21:59 Last Admin: 10/10/18 22:47 Dose: 30 mg Documented by: Morphine Sulfate (Morphine Sulfate Ir) 15 mg PO Q6 PRN PRN Reason: Pain Stop: 10/20/18 01:29 Last Admin: 10/10/18 03:33 Dose: 15 mg Documented by: Multivitamins (Multivitamin Tab) [facility] Stop: 11/05/18 08:59 Last Admin: 10/11/18 10:08 Dose: 1 tab Documented by: Nicotine (Nicoderm Cq) 21 mg TD QAM [facility] Stop: 11/05/18 08:59 Last Admin: 10/11/18 10:08 Dose: 21 mg Documented by: Nicotine Polacrilex (Nicorette 2mg) 1 piece MT UD PRN PRN Reason: Nicotine Withdrawal Stop: 11/05/18 01:21 Quetiapine Fumarate (Seroquel) 200 mg PO [facility] Stop: 11/07/18 21:59 Last Admin: 10/10/18 22:45 Dose: 200 mg Documented by: Quetiapine Fumarate (Seroquel) 50 mg PO HS PRN PRN Reason: Insomnia Stop: 11/07/18 21:59 Last Admin: 10/10/18 00:28 Dose: 50 mg Documented by: Quetiapine Fumarate (Seroquel) 25 mg PO Q4H PRN PRN Reason: anxiety/agitation Stop: 11/08/18 11:44 Last Admin: 10/10/18 19:26 Dose: 25 mg Documented by: Quetiapine Fumarate (Seroquel) 50 mg PO BID@0900,1400 [facility] Stop: 11/10/18 08:59 Last Admin: 10/11/18 10:08 Dose: 50 mg Documented by: Sodium Chloride ([place] Nasal) 1 - 2 sprays NA PRN PRN PRN Reason: Nasal Dryness/Congestion Stop: 11/05/18 01:21 Mental Health & Subst Abuse Tx Psychiatrist Name of Psychiatrist: Kim Mendoza - Dr. Borden Psychiatrist's Date of Appointment with Psychiatrist: 10/19/18 Time of Appointment with Psychiatrist: 9:50 am Psychiatric Appointment Comment: [address] 10/24@11:30 Therapist Name of Therapist: Kim [facility] - Manuel Weiner Therapist's Date of Therapist Appointment: 10/15/18 Time of Therapist Appointment: 3:00 p.m. Therapy Appointment Comment: [address] Systems Design Engineer Name of Systems Design Engineer: None Post Discharge Appointments Primary Care Physician Name Of Family Doctor: Dr. Yovany Davis Date of Appointment with PCP: 10/18/18 Time of Appointment with PCP: 9:50am CPT Code CPT Code 02458 (1) Bipolar disorder Active/Remission status: currently active Current bipolar episode type: depressed Current episode severity: severe Psychotic features: with psychotic features Qualified Code(s): F31.5 - Bipolar disorder, current episode depressed, severe, with psychotic features
[2018-10-11] MEDS: QUETIAPINE FUMARATE 25 MG TABLET PO PRN ×2 (12:25→17:11)
[2018-10-11] MEDS: QUETIAPINE FUMARATE 200 MG TAB PO SCH (22:14)
[2018-10-11] MEDS: MoRPHine SULFATE CR 15 MG TABCR PO SCH (22:14)
[2018-10-11] MEDS: MIRTAZAPINE TAB 15 MG TAB PO SCH (22:14)
[2018-10-12] MEDS: MULTIVITAMIN TAB PO SCH (09:48)
[2018-10-12] MEDS: lamoTRIgine 25 MG TAB PO SCH (09:48)
[2018-10-12] MEDS: QUETIAPINE FUMARATE 25 MG TABLET PO SCH ×2 (09:48→14:00)
[2018-10-12] MEDS: ATORVASTATIN 20 MG TAB PO SCH (09:48)
[2018-10-12] MEDS: NICOTINE 21 MG/24 HR TDSY TD SCH (09:57)
[2018-10-12] MEDS: MoRPHine SULFATE IR 15 MG TAB (IMMEDIATE RELEASE) PO PRN (10:04)
[2018-10-12] MEDS ORDERED: DiphenhydrAMINE HCL 50 MG/ML VIAL IM STA (16:54)
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
[2018-10-12] MEDS: MoRPHine SULFATE CR 15 MG TABCR PO SCH (22:20)
[2018-10-12] MEDS: TRIHEXYPHENIDYL HCL 2 MG TAB PO SCH (22:20)
[2018-10-12] MEDS: QUETIAPINE FUMARATE 200 MG TAB PO SCH (22:21)
[2018-10-12] MEDS: MIRTAZAPINE TAB 15 MG TAB PO SCH (22:21)
[2018-10-13] MEDS: MoRPHine SULFATE IR 15 MG TAB (IMMEDIATE RELEASE) PO PRN (07:50)
[2018-10-13] MEDS: MULTIVITAMIN TAB PO SCH (07:50)
[2018-10-13] MEDS: TRIHEXYPHENIDYL HCL 2 MG TAB PO SCH ×2 (07:50→21:23)
[2018-10-13] MEDS: lamoTRIgine 25 MG TAB PO SCH (07:50)
[2018-10-13] MEDS: QUETIAPINE FUMARATE 25 MG TABLET PO SCH ×2 (07:50→13:45)
[2018-10-13] MEDS: ATORVASTATIN 20 MG TAB PO SCH (07:50)
--- NOTE | 2018-10-13 13:37 | Psychiatric Progress Note ---
Date of Service October 13, 2018 Impression / Recommendations Impression 58yo female that presents with low mood, restlessness, anxiety, and SI in the context of poor p.o. intake, low body weight with BMI of 15.4, and perseveration on delusions that she is going to at any moment, consistently stating she will not make it through the day. She was [place] [facility] [place] prior to admission, where she was treated for similar symptoms, but was noncompliant with medications after discharge, not believing she needed them. Multiple medication changes have been made to address mood, anxiety, psychotic, and sleep symptoms: Initially Depakote was discontinued, olanzapine 10 mg at bedtime continued, and mirtazapine started; but due to concerns for akathisia, olanzapine was discontinued in favor of quetiapine. Lamotrigine started for bipolar depression, and and the plan had been to titrate quetiapine. Inpatient treatment remains medically necessary due to the severity of her symptoms, and ability to provide for her own basic needs without inpatient level of care, and risk for harm to herself if discharged. (1) Suicidal ideation: 10/06 and 10/07 - inpatient is least restrictive and most appropriate setting for care given multiple risk factors, passive SI, hopelessness, pain, poor sleep, restlessness. 10/08 -patient endorsing suicidal thoughts with a plan to starve herself, and reports that she has been restricting intake with unknown amount of weight loss. She is underweight with BMI 15.4. Continue to monitor p.o. intake and encourage good nutrition. 10/09 - Pt denies active SI, but continues to believe that she is "reaching the end" and that is imminent, which further contributes to her anxiety 10/11 -today patient is reporting to harm herself, and states that she would "probably" tried to end her life if she were not in the hospital. 10/12 - The patient reports today that she does not feel that it will be necessary for her to commit suicide because she is to be put to in the morning by lethal injection. (2) Bipolar disorder: 10/06 - She had been stable for many years on Zyprexa +/- Depakote and trazodone although occasional low moods often seasonally mediated and anxiety at times failing Cymbalta due to PANIAGUA's. Given this history I would like to keep her on a mood stabilizer but am concerned about hair loss and tremor and possible compounded cognitive impairment with Depakote so I held this, so will keep Zyprexa 10mg for now.stop Depakote, continue Zyprexa 10mg, start Remeron 15mg/hs 10/07 - stopped zyprexa to r/o akathisia (5mg tonight then off), returned to Seroquel (due to sedation stopped Remeron as well) 100mg tonight then 200mg thereafter with hope would stabilize, help depression and off label help sleep and anxiety, initial target dose if 200mg watching to assure not too fatigued as per last trial t 300mg when she had enuresis and daytime fatigue. She is now at lowered dose of morphine so fatigue and oversedation less likely Strongly consider Lamictal for mood stabilization, due to h/o break through depression on Seroquel in the , titration briefly discussed today but patient was too overwhelmed to consent. 10/08 -Continue quetiapine 200 mg at bedtime, and at 50 mg as needed dose for sleep. Reviewed the risks, benefits, and side effects of lamotrigine, which was also reviewed with her yesterday, including the risk of serious rash/SJS. She agreed to a trial, and will start 25 mg daily. -Order fasting labs for monitoring on an atypical antipsychotic. 10/09 - Planning to initiate quetiapine 25mg BID at 0900 and 1400; will order 25mg q4h prn for anxiety/disorganized thoughts. Will continue quetiapine 200mg at bedtime with 50mg additional dose as needed for sleep. - Will attempt to get fasting labs tomorrow morning, as patient had eaten overnight and the blood test could not be completed today - Continue lamotrigine 25mg daily 10/10 - Will titrate daytime doses of quetiapine to 50mg BID with continued 200mg/50mg bedtime dosing - Continue lamotrigine 25mg daily - Will restart mirtazapine at 15mg as patient continues to experience insomnia, receiving only 1.75 hours of sleep last evening 10/11 -Continue current medications; quetiapine just increased yesterday with scheduled dosing throughout the day as well as as needed dose; continue to titrate to effective dose. Sleep improved with resumption of mirtazapine. 10/13 hopefully can titrate Seroquel tomorrow. (3) Akathisia: 10/06/18 - possibly neuroleptic induced, worsened by anxiety. Working theory is lowered dose of morphine uncovered akathisia caused by Zyprexa need to gather more history to consider need for AAP vs. mood stabilizer or both and prior response to other meds, would like to avoid anticholinergics given cognitive concerns 10/07/18 - she is having insomnia, needs mood stabilization and antidepressant, she did have some fatigue on 300mg but now on lowered dose of morphine. There were possibly two instances of enuresis but 200mg consistently was never tested over longer term for treatment, and given akathisia do not wish to use Clozaril and other AAP ongoing likelihood of akathisia so will retrial Seroquel titration to 200mg watching energy, and monitoring for nighttime urination. Patient affirms understanding history and current situation reviewed and she agrees with this plan as it supports multiple symptoms and leads to reduction of polypharmacy. 10/09 - Unclear if tremor and restlessness is true akathisia or related to anxiety - as it is not constant and appears to be worse when anxiety is highest - Continue to observe, but will refrain from treating with additional medication at this time - No evidence of cogwheeling or dystonia on physical exam 10/13 --EPS resolved with Artane 10/12 -Cogwheeling is present today on physical examination. The patient was given diphenhydramine 25 mg IM and is being observed. Her symptoms do appear to be consistent with akathisia, although they do appear to wax and wane. (4) Cognitive disorder: 10/06/18 - I am concerned about her cognition as her overall MMSE-like assessment was near normal outside of a few points, but her CLOX was notably poor indicating poor executive function concerns. Again I will need to revewi PCM's records to see what labs and studies have been done to r/u reversible causes of cognitive decline. TSH WNL, LFTs WNL. Furthermore morphine and zyprexa and residual VPA can contribute to poor cognition. WIll add MVI for now to support. 10/07 - review of remainder of labs from Dr Davis cited in 10/07 note B12, cbc, CMP vit D all WNL, could be h/o alcohol, polypharmacy with narcotic and AAP, and VPA although the latter has been stopped. There are no focal findings on exam. CLOX I indicates frontal lobe/executive issues but no other obvious release signs or personality changes or overt disinhibition. Recommend referral to neuropsych testing at [facility] after discharge for further characterization of her deficits as they may be pseudo dementia of depression or medications or both. 10/12 -Cognitive testing currently is not possible, due to the degree of the patient's thought disorganization and psychotic thinking. (5) Anxiety: 10/06/18 - remeron off label, zyprexa off label 10/07/18 - off remeron onto seroquel may have some off label help for sleep and anxiety, supportive therapy on milieu as patient works through some roots of anxiety in divulging her medication diversion 10/09 - Quetiapine 25mg BID at 0900 and 1400 - with prn doses available q4h prn - Continue supportive therapy and engage patient in groups and active coping strategies as able 10/10 - Titrating daytime doses of quetiapine to 50mg BID, continue prn dosing if necessary - Will restart mirtazapine at 15mg this evening to target insomnia and persistent ruminations regarding health and feelings of guilt - If restart of mirtazapine is over-sedating, can consider reducing dose to 7.5mg qHS 10/12 -The patient's underlying anxiety may be exacerbated seizure. She describes a restless, "jumpy" feeling much of the time. She also notes that it is sometimes difficult for her to swallow and her muscles feel "stiff." On examination, today, there is cogwheel rigidity. (6) Chronic pain: 10/06/18 - continue home dose of morphine (if Remeron not effective for mood consider SNRI desvenlafaxine with caution) 10/07/18 - patient admits to real pain but taking her morphine less than prescribed for many years and up until recently diverting the rest for money, she states she has recently changed this practice but is concerned about how to tell her doctors and the emerging financial strain now that she is no longer diverting her medications. This is a major source of her anxiety, possibly contributing to depression and weight loss as well. - request the weekday team help her to tell her PCM and psychiatrist, and then to work out possible relationship with pain clinic for Surajs or related opiate agonist/antagonist so that her pain can be treated and not diverted if possible. 10/08 -Patient too distraught, psychotic, and disorganized today to address this. 10/09 - Continues to verbalize pain; states it is manageable 10/11 -Patient endorses guilt at times related to selling her prescribed morphine, and this has not yet been addressed with her PCP, who is out of the office until next week. The patient remains to distraught and psychotic to process this, so will revisit it next week. Inventory Assets Strengths: voluntary, good rapport with outpatient MD Needs: support, further medical record reveiw and outpatient f/u Risk Factors Assessment Male: No : Yes Do You Have Access To A Gun?: No Health Problems: Yes Mental Health Diagnoses: Yes Substance Use Disorders: No Previous Attempt: No Family History of Suicide: No Previous Psychiatric Hospitalization: Yes Hopelessness: Yes Smoker: Yes Protective Factors Assessment [employer] Beliefs: Yes : No Employed: No (Disability for back pain from [employer]) Good Rapport with Provider: Yes Interval History Identifying Information ALINA STONE is a 58-year-old F who currently lives in [facility], has her own home but presently staying with a friend "to help her," who has a history of Bipolar disorder and was admitted on 10/06/18 00:28 on a 201 voluntary status for restlessness, anxiety, racing thoughts and thoughts of wanting to . Chief Complaint "I'm the same, I pretty much ". Review of Systems Sleep Information Total Hours of Sleep: 6.5 Sleep Comments: pt with VENANCIO @0500 and thereafter. pt on q-15 minute checks Meal Information Percent Meal Consumed - Breakfast: 50 Percent Meal Consumed - Lunch: 25 Percent Meal Consumed - Dinner: 100 Subjective Subjective Patient was seen & assessed and interval progress reviewed with Nursing and social work. MNPR as has difficulty keeping clothes on, in bed without pants but with underwear at this time. Morphine taper to be initiated following contact with Dr. Davis. Received Artane for some dystonia yesterday, denies today and no evidence of rigidity/cogwheeling. She doesn't want to change medications today. Physical Exam Psychiatric Orientation: alert and oriented to person Apperance: + disheveled Eye Contact: + poor eye contact Motor Behavior: no abnormal motor movements Speech: normal rate/rhythm/volume of speech Affect: + labile affect Mood: + anxious mood Thought Process: + circumstantial thought process Thought Content: + delusions Suicidal Thoughts: denies suicidal thoughts Homicidal Thoughts: denies homicidal thoughts Hallucinations: no auditory hallucinations and no visual hallucinations Cognition: + recent memory not intact and + attention not intact Estimated Intelligence: consistent with education level Insight: + poor insight Judgement: + poor judgement Vital Signs (Past 24 Hours) Last Vital Signs Temp 36.6 C 10/13/18 06:50 Pulse 93 H 10/13/18 06:51 Resp 20 10/13/18 06:50 BP 135/82 10/13/18 06:51 Pulse Ox 98 10/06/18 01:41 Results & Data Laboratory Results Laboratory Results - last 24 hr 10/05/18 19:20 U MDMA (Ecstasy), Quant REPORT Current Inpatient Medications Current Inpatient Medications: Current Inpatient Medications Acetaminophen (Tylenol) 650 mg PO Q4H PRN PRN Reason: Headache or Minor Fever Stop: 11/05/18 01:21 Al Hydrox/Mg Hydrox/Simethicone (Maalox) 30 ml PO Q4H PRN PRN Reason: GI Upset Stop: 11/05/18 01:21 Atorvastatin Calcium [facility]) [facility] [place] Stop: 11/05/18 08:59 Last Admin: 10/13/18 07:50 Dose: 20 mg Documented by: Bismuth Subsalicylate (Kaopectate) 15 ml PO PRN PRN PRN Reason: Loose Stool Stop: 11/05/18 01:21 Hydroxyzine HCl (Vistaril) 25 mg PO Q4H PRN PRN Reason: Anxiety Stop: 11/05/18 01:21 Last Admin: 10/12/18 10:04 Dose: 25 mg Documented by: Lamotrigine (Lamictal) 25 mg PO QA [facility] Stop: 11/07/18 09:29 Last Admin: 10/13/18 07:50 Dose: 25 mg Documented by: Magnesium Hydroxide (Milk Of Magnesia) 30 ml PO DAILY PRN PRN Reason: Heartburn Stop: 11/05/18 01:21 Last Admin: 10/09/18 15:32 Dose: 30 ml Documented by: Mirtazapine (Remeron) 15 mg PO HS [facility] Stop: 11/09/18 21:59 Last Admin: 10/12/18 22:21 Dose: 15 mg Documented by: Morphine Sulfate (Ms Contin) 30 mg PO HS [facility] Stop: 10/20/18 21:59 Last Admin: 10/12/18 22:20 Dose: 30 mg Documented by: Morphine Sulfate (Morphine Sulfate Ir) 15 mg PO Q6 PRN PRN Reason: Pain Stop: 10/20/18 01:29 Last Admin: 10/13/18 07:50 Dose: 15 mg Documented by: Multivitamins (Multivitamin Tab) 1 tab PO QAM [facility] Stop: 11/05/18 08:59 Last Admin: 10/13/18 07:50 Dose: 1 tab Documented by: Nicotine (Nicoderm Cq) 21 mg TD QAM [facility] Stop: 11/05/18 08:59 Last Admin: 10/12/18 09:57 Dose: 21 mg Documented by: Nicotine Polacrilex (Nicorette 2mg) 1 piece MT UD PRN PRN Reason: Nicotine Withdrawal Stop: 11/05/18 01:21 Quetiapine Fumarate (Seroquel) 200 mg PO HS [facility] Stop: 11/07/18 21:59 Last Admin: 10/12/18 22:21 Dose: 200 mg Documented by: Quetiapine Fumarate (Seroquel) 50 mg PO HS PRN PRN Reason: Insomnia Stop: 11/07/18 21:59 Last Admin: 10/10/18 00:28 Dose: 50 mg Documented by: Quetiapine Fumarate (Seroquel) 25 mg PO Q4H PRN PRN Reason: anxiety/agitation Stop: 11/08/18 11:44 Last Admin: 10/11/18 17:11 Dose: 25 mg Documented by: Quetiapine Fumarate (Seroquel) 50 mg PO BID@0900,1400 [facility] Stop: 11/10/18 08:59 Last Admin: 10/13/18 07:50 Dose: 50 mg Documented by: Sodium Chloride ([place] Nasal) 1 - 2 sprays NA PRN PRN PRN Reason: Nasal Dryness/Congestion Stop: 11/05/18 01:21 Trihexyphenidyl HCl (Artane) 2 mg PO BID [facility] Stop: 11/11/18 20:59 Last Admin: 10/13/18 07:50 Dose: 2 mg Documented by: Mental Health & Subst Abuse Tx Psychiatrist Name of Psychiatrist: [facility] - Dr. Borden Psychiatrist's Date of Appointment with Psychiatrist: 10/19/18 Time of Appointment with Psychiatrist: 9:50 am Psychiatric Appointment Comment: [address] - Next appointment - 10/24@11:30 [facility] Therapist's Date of Therapist Appointment: 10/15/18 Time of Therapist Appointment: 3:00 p.m. Therapy Appointment Comment: [address] [place] Transmitter Chief Name of Transmitter Chief: None Post Discharge Appointments Primary Care Physician Name Of Family Doctor: Dr. Yovany Davis Primary Care Date of Appointment with PCP: 10/18/18 Time of Appointment with PCP: 9:50am Provider Appointment Comment: [address], [address], [place] Contact Information Discharge Discharge Address: [address] [place] [address] CPT Code CPT Code 56661 (1) Bipolar disorder Active/Remission status: currently active Current bipolar episode type: depressed Current episode severity: severe Psychotic features: with psychotic features Qualified Code(s): F31.5 - Bipolar disorder, current episode depressed, severe, with psychotic features
[2018-10-13] MEDS: NICOTINE 21 MG/24 HR TDSY TD SCH (13:42)
[2018-10-13] MEDS: MIRTAZAPINE TAB 15 MG TAB PO SCH (21:23)
[2018-10-13] MEDS: QUETIAPINE FUMARATE 200 MG TAB PO SCH (21:23)
[2018-10-13] MEDS: MoRPHine SULFATE CR 15 MG TABCR PO SCH (21:23)
[2018-10-14] MEDS: MULTIVITAMIN TAB PO SCH ×2 (10:25→10:56)
[2018-10-14] MEDS: ATORVASTATIN 20 MG TAB PO SCH ×2 (10:25→10:56)
[2018-10-14] MEDS: QUETIAPINE FUMARATE 25 MG TABLET PO SCH ×3 (10:25→14:36)
[2018-10-14] MEDS: TRIHEXYPHENIDYL HCL 2 MG TAB PO SCH ×3 (10:25→23:02)
[2018-10-14] MEDS: lamoTRIgine 25 MG TAB PO SCH ×3 (10:25→14:37)
[2018-10-14] MEDS: NICOTINE 21 MG/24 HR TDSY TD SCH (10:25)
--- NOTE | 2018-10-14 11:52 | Psychiatric Progress Note ---
Date of Service October 14, 2018 Impression / Recommendations Impression 58yo female that presents with low mood, restlessness, anxiety, and SI in the context of poor p.o. intake, low body weight with BMI of 15.4, and perseveration on delusions that she is going to at any moment, consistently stating she will not make it through the day. She was just discharged from [facility] 5 days prior to admission, where she was treated for similar symptoms, but was noncompliant with medications after discharge, not believing she needed them. Multiple medication changes have been made to address mood, anxiety, psychotic, and sleep symptoms: Initially Depakote was discontinued, olanzapine 10 mg at bedtime continued, and mirtazapine started; but due to concerns for akathisia, olanzapine was discontinued in favor of quetiapine. Lamotrigine started for bipolar depression, and and the plan had been to titrate quetiapine. Inpatient treatment remains medically necessary due to the severity of her symptoms, and ability to provide for her own basic needs without inpatient level of care, and risk for harm to herself if discharged. (1) Suicidal ideation: 10/06 and 10/07 - inpatient is least restrictive and most appropriate setting for care given multiple risk factors, passive SI, hopelessness, pain, poor sleep, restlessness. 10/08 -patient endorsing suicidal thoughts with a plan to starve herself, and reports that she has been restricting intake with unknown amount of weight loss. She is underweight with BMI 15.4. Continue to monitor p.o. intake and encourage good nutrition. 10/09 - Pt denies active SI, but continues to believe that she is "reaching the end" and that is imminent, which further contributes to her anxiety 10/11 -today patient is reporting to harm herself, and states that she would "probably" tried to end her life if she were not in the hospital. 10/12 - The patient reports today that she does not feel that it will be necessary for her to commit suicide because she is to be put to in the morning by lethal injection. (2) Bipolar disorder: 10/06 - She had been stable for many years on Zyprexa +/- Depakote and trazodone although occasional low moods often seasonally mediated and anxiety at times failing Cymbalta due to PANIAGUA's. Given this history I would like to keep her on a mood stabilizer but am concerned about hair loss and tremor and possible compounded cognitive impairment with Depakote so I held this, so will keep Zyprexa 10mg for now.stop Depakote, continue Zyprexa 10mg, start Remeron 15mg/hs 10/07 - stopped zyprexa to r/o akathisia (5mg tonight then off), returned to Seroquel (due to sedation stopped Remeron as well) 100mg tonight then 200mg thereafter with hope would stabilize, help depression and off label help sleep and anxiety, initial target dose if 200mg watching to assure not too fatigued as per last trial t 300mg when she had enuresis and daytime fatigue. She is now at lowered dose of morphine so fatigue and oversedation less likely Strongly consider Lamictal for mood stabilization, due to h/o break through depression on Seroquel in the , titration briefly discussed today but patient was too overwhelmed to consent. 10/08 -Continue quetiapine 200 mg at bedtime, and at 50 mg as needed dose for sleep. Reviewed the risks, benefits, and side effects of lamotrigine, which was also reviewed with her yesterday, including the risk of serious rash/SJS. She agreed to a trial, and will start 25 mg daily. -Order fasting labs for monitoring on an atypical antipsychotic. 10/09 - Planning to initiate quetiapine 25mg BID at 0900 and 1400; will order 25mg q4h prn for anxiety/disorganized thoughts. Will continue quetiapine 200mg at bedtime with 50mg additional dose as needed for sleep. - Will attempt to get fasting labs tomorrow morning, as patient had eaten overnight and the blood test could not be completed today - Continue lamotrigine 25mg daily 10/10 - Will titrate daytime doses of quetiapine to 50mg BID with continued 200mg/50mg bedtime dosing - Continue lamotrigine 25mg daily - Will restart mirtazapine at 15mg as patient continues to experience insomnia, receiving only 1.75 hours of sleep last evening 10/11 -Continue current medications; quetiapine just increased yesterday with scheduled dosing throughout the day as well as as needed dose; continue to titrate to effective dose. Sleep improved with resumption of mirtazapine. 10/13 hopefully can titrate Seroquel tomorrow. 10/14--doesn't appear that benefiting much from Seroquel, hesitant to titrate given sedation, tremor and gait. Appetite remains poor. Refused meds this am. Was losing weight on Zyprexa. Trial of a typical agent (haldol) may be appropriate, will defer to primary team. will note that if patient continues to refuse PO medications, she should receive meds over objection as or serious injury to self would come from psychotic disorder resulting in poor PO and she will not improve without such medication. Refusal of meds and level of psychosis would be indication for involuntary commitment. (3) Akathisia: 10/06/18 - possibly neuroleptic induced, worsened by anxiety. Working theory is lowered dose of morphine uncovered akathisia caused by Zyprexa need to gather more history to consider need for AAP vs. mood stabilizer or both and prior response to other meds, would like to avoid anticholinergics given cognitive concerns 10/07/18 - she is having insomnia, needs mood stabilization and antidepressant, she did have some fatigue on 300mg but now on lowered dose of morphine. There were possibly two instances of enuresis but 200mg consistently was never tested over longer term for treatment, and given akathisia do not wish to use Clozaril and other AAP ongoing likelihood of akathisia so will retrial Seroquel titration to 200mg watching energy, and monitoring for nighttime urination. Patient affirms understanding history and current situation reviewed and she agrees with this plan as it supports multiple symptoms and leads to reduction of polypharmacy. 10/09 - Unclear if tremor and restlessness is true akathisia or related to anxiety - as it is not constant and appears to be worse when anxiety is highest - Continue to observe, but will refrain from treating with additional medication at this time - No evidence of cogwheeling or dystonia on physical exam 10/13 --EPS resolved with Artane 10/12 -Cogwheeling is present today on physical examination. The patient was given diphenhydramine 25 mg IM and is being observed. Her symptoms do appear to be c onsistent with akathisia, although they do appear to wax and wane. (4) Cognitive disorder: 10/06/18 - I am concerned about her cognition as her overall MMSE-like assessment was near normal outside of a few points, but her CLOX was notably poor indicating poor executive function concerns. Again I will need to revewi PCM's records to see what labs and studies have been done to r/u reversible causes of cognitive decline. TSH WNL, LFTs WNL. Furthermore morphine and zyprexa and residual VPA can contribute to poor cognition. WIll add MVI for now to support. 10/07 - review of remainder of labs from Dr Davis cited in 10/07 note B12, cbc, CMP vit D all WNL, could be h/o alcohol, polypharmacy with narcotic and AAP, and VPA although the latter has been stopped. There are no focal findings on exam. CLOX I indicates frontal lobe/executive issues but no other obvious release signs or personality changes or overt disinhibition. Recommend referral to neuropsych testing at [facility] after discharge for further characterization of her deficits as they may be pseudo dementia of depression or medications or both. 10/12 -Cognitive testing currently is not possible, due to the degree of the patient's thought disorganization and psychotic thinking. (5) Anxiety: 10/06/18 - remeron off label, zyprexa off label 10/07/18 - off remeron onto seroquel may have some off label help for sleep and anxiety, supportive therapy on milieu as patient works through some roots of anxiety in divulging her medication diversion 10/09 - Quetiapine 25mg BID at 0900 and 1400 - with prn doses available q4h prn - Continue supportive therapy and engage patient in groups and active coping strategies as able 10/10 - Titrating daytime doses of quetiapine to 50mg BID, continue prn dosing if necessary - Will restart mirtazapine at 15mg this evening to target insomnia and persistent ruminations regarding health and feelings of guilt - If restart of mirtazapine is over-sedating, can consider reducing dose to 7.5mg qHS 10/12 -The patient's underlying anxiety may be exacerbated seizure. She describes a restless, "jumpy" feeling much of the time. She also notes that it is sometimes difficult for her to swallow and her muscles feel "stiff." On examination, today, there is cogwheel rigidity. (6) Chronic pain: 10/06/18 - continue home dose of morphine (if Remeron not effective for mood consider SNRI desvenlafaxine with caution) 10/07/18 - patient admits to real pain but taking her morphine less than prescribed for many years and up until recently diverting the rest for money, she states she has recently changed this practice but is concerned about how to tell her doctors and the emerging financial strain now that she is no longer diverting her medications. This is a major source of her anxiety, possibly contributing to depression and weight loss as well. - request the weekday team help her to tell her PCM and psychiatrist, and then to work out possible relationship with pain clinic for [place] or related opiate agonist/antagonist so that her pain can be treated and not diverted if possible. 10/08 -Patient too distraught, psychotic, and disorganized today to address this. 10/09 - Continues to verbalize pain; states it is manageable 10/11 -Patient endorses guilt at times related to selling her prescribed morphine, and this has not yet been addressed with her PCP, who is out of the office until next week. The patient remains to distraught and psychotic to process this, so will revisit it next week. Inventory Assets Strengths: voluntary, good rapport with outpatient MD Needs: support, further medical record reveiw and outpatient f/u Risk Factors Assessment Male: No : Yes Do You Have Access To A Gun?: No Health Problems: Yes Mental Health Diagnoses: Yes Substance Use Disorders: No Previous Attempt: No Family History of Suicide: No Previous Psychiatric Hospitalization: Yes Hopelessness: Yes Smoker: Yes Protective Factors Assessment Confucianism Beliefs: Yes : No Employed: No (Disability for back pain from [employer]) Good Rapport with Provider: Yes Interval History Identifying Information KELLEY STONE is a 58-year-old F who currently lives in [facility], has her own home but presently staying with a friend "to help her," who has a history of Bipolar disorder and was admitted on 10/06/18 00:28 on a 201 voluntary status for restlessness, anxiety, racing thoughts and thoughts of wanting to . Chief Complaint "Look at my eyes, it's too late". Review of Systems Sleep Information Total Hours of Sleep: 14.25 Sleep Comments: pt appeared to sleep 7.25 hrs during evening shift. pt on q-15 minute checks Meal Information Percent Meal Consumed - Breakfast: 75 Percent Meal Consumed - Lunch: 100 Percent Meal Consumed - Dinner: 0 Subjective Subjective Patient was seen & assessed and interval progress reviewed with Nursing and social work. Kelley stayed to herself alot yesterday and hasn't been eating and drinking well. Today she is more tremulous and anxious in interactions. She slept alot yesterday. She perseverates on having hurt someone and on herself being . Physical Exam Psychiatric Orientation: alert, oriented to person and oriented to place Apperance: + disheveled Motor Behavior: + tremor Speech: normal rate/rhythm/volume of speech (but can be intrussive) Affect: + anxious affect and + tearful affect Mood: + depressed mood and + anxious mood Thought Process: + perseveration Thought Content: + delusions Suicidal Thoughts: denies suicidal thoughts Homicidal Thoughts: denies homicidal thoughts Hallucinations: no auditory hallucinations and no visual hallucinations Cognition: + remote memory not intact Insight: + severely impaired insight Judgement: + severely impaired judgement Vital Signs (Past 24 Hours) Last Vital Signs Temp 36.3 C L 10/14/18 06:56 Pulse 84 10/14/18 06:57 Resp 18 10/14/18 06:56 BP 146/89 H 10/14/18 06:57 Pulse Ox 98 10/06/18 01:41 See physical exam by Dr East in the ER 10/05/18 which has been reviewed and accepted for purposes of this H&P Results & Data Current Inpatient Medications Current Inpatient Medications: Current Inpatient Medications Acetaminophen (Tylenol) 650 mg PO Q4H PRN PRN Reason: Headache or Minor Fever Stop: 11/05/18 01:21 Al Hydrox/Mg Hydrox/Simethicone (Maalox) 30 ml PO Q4H PRN PRN Reason: GI Upset Stop: 11/05/18 01:21 Atorvastatin Calcium (Lipitor) 20 mg PO QAM SHUN Stop: 11/05/18 08:59 Last Admin: 10/14/18 10:56 Dose: Not Given Documented by: Bismuth Subsalicylate (Kaopectate) 15 ml PO PRN PRN PRN Reason: Loose Stool Stop: 11/05/18 01:21 Hydroxyzine HCl (Vistaril) 25 mg PO Q4H PRN PRN Reason: Anxiety Stop: 11/05/18 01:21 Last Admin: 10/12/18 10:04 Dose: 25 mg Documented by: [facility]otrigine (Lamictal) [facility] Stop: 11/07/18 09:29 Last Admin: 10/14/18 10:55 Dose: Not Given Documented by: Magnesium Hydroxide (Milk Of Magnesia) 30 ml PO DAILY PRN PRN Reason: Heartburn Stop: 11/05/18 01:21 Last Admin: 10/09/18 15:32 Dose: 30 ml Documented by: Mirtazapine (Remeron) 15 mg PO [facility] Stop: 11/09/18 21:59 Last Admin: 10/13/18 21:23 Dose: 15 mg Documented by: Morphine Sulfate (Ms Contin) 30 mg PO [facility] Stop: 10/20/18 21:59 Last Admin: 10/13/18 21:23 Dose: 30 mg Documented by: Morphine Sulfate (Morphine Sulfate Ir) 15 mg PO Q6 PRN PRN Reason: Pain Stop: 10/20/18 01:29 Last Admin: 10/13/18 07:50 Dose: 15 mg Documented by: Multivitamins (Multivitamin Tab) 1 tab PO [facility] Stop: 11/05/18 08:59 Last Admin: 10/14/18 10:56 Dose: Not Given Documented by: Nicotine (Nicoderm Cq) 21 mg TD [facility] Stop: 11/05/18 08:59 Last Admin: 10/14/18 10:25 Dose: 21 mg Documented by: Nicotine Polacrilex (Nicorette 2mg) 1 piece MT UD PRN PRN Reason: Nicotine Withdrawal Stop: 11/05/18 01:21 Quetiapine Fumarate (Seroquel) 200 mg PO [facility] Stop: 11/07/18 21:59 Last Admin: 10/13/18 21:23 Dose: 200 mg Documented by: Quetiapine Fumarate (Seroquel) 50 mg PO HS PRN PRN Reason: Insomnia Stop: 11/07/18 21:59 Last Admin: 10/10/18 00:28 Dose: 50 mg Documented by: Quetiapine Fumarate (Seroquel) 25 mg PO Q4H PRN PRN Reason: anxiety/agitation Stop: 11/08/18 11:44 Last Admin: 10/11/18 17:11 Dose: 25 mg Documented by: Quetiapine Fumarate (Seroquel) 50 mg PO BID@0900,1400 SHUN Stop: 11/10/18 08:59 Last Admin: 10/14/18 10:54 Dose: Not Given Documented by: Sodium Chloride ([place] Nasal) 1 - 2 sprays NA PRN PRN PRN Reason: Nasal Dryness/Congestion Stop: 11/05/18 01:21 Trihexyphenidyl HCl (Artane) 2 mg PO BID SHUN Stop: 11/11/18 20:59 Last Admin: 10/14/18 10:55 Dose: Not Given Documented by: Mental Health & Subst Abuse Tx Psychiatrist Name of Psychiatrist: Kim Mendoza - Dr. Borden Psychiatrist's Date of Appointment with Psychiatrist: 10/19/18 Time of Appointment with Psychiatrist: 9:50 am Psychiatric Appointment Comment: [address] - Next appointment - 10/24@11:30 Therapist Name of Therapist: Kim Weiner Therapist's Date of Therapist Appointment: 10/15/18 Time of Therapist Appointment: 3:00 p.m. Therapy Appointment Comment: [address] [place] Sound Engineering Technician Name of Sound Engineering Technician: None Post Discharge Appointments Primary Care Physician Name Of Family Doctor: Dr. Yovany Davis Primary [facility] Date of Appointment with PCP: 10/18/18 Time of Appointment with PCP: 9:50am Provider Appointment Comment: [address], [address], [place] Contact Information Discharge Discharge Address: [address] [place] [address] CPT Code CPT Code 23995 (1) Bipolar disorder Active/Remission status: currently active Current bipolar episode type: depressed Current episode severity: severe Psychotic features: with psychotic features Qualified Code(s): F31.5 - Bipolar disorder, current episode depressed, severe, with psychotic features
[2018-10-14] MEDS: MIRTAZAPINE TAB 15 MG TAB PO SCH (23:03)
[2018-10-14] MEDS: QUETIAPINE FUMARATE 200 MG TAB PO SCH (23:03)
[2018-10-14] MEDS: MoRPHine SULFATE CR 15 MG TABCR PO SCH (23:03)
[2018-10-15] MEDS: TRIHEXYPHENIDYL HCL 2 MG TAB PO SCH ×2 (10:28→21:59)
[2018-10-15] MEDS: lamoTRIgine 25 MG TAB PO SCH (10:31)
[2018-10-15] MEDS: ATORVASTATIN 20 MG TAB PO SCH (10:32)
[2018-10-15] MEDS: NICOTINE 21 MG/24 HR TDSY TD SCH (10:32)
[2018-10-15] MEDS: MULTIVITAMIN TAB PO SCH (10:32)
[2018-10-15] MEDS: QUETIAPINE FUMARATE 25 MG TABLET PO SCH ×2 (10:32→13:33)
--- NOTE | 2018-10-15 14:14 | Psychiatric Progress Note ---
Date of Service October 15, 2018 Impression / Recommendations Impression 58y/o female who presented with low mood, restlessness, anxiety, and SI in the context of poor p.o. intake, low body weight with BMI of 15.4, and perseveration on delusions that she is going to at any moment, consistently stating she will not make it through the day. She was just discharged from [facility] 5 days prior to admission, where she was treated for similar symptoms, but was noncompliant with medications after discharge, not believing she needed them. Multiple medication changes have been made to address mood, anxiety, psychosis, and sleep: Initially Depakote was discontinued, olanzapine 10 mg at bedtime continued, and mirtazapine started; but due to concerns for akathisia, olanzapine was discontinued in favor of quetiapine. Lamotrigine started for bipolar depression, and and the plan had been to titrate quetiapine, which she is unfortunately now refusing medications over the past 2 days. At times she does not respond to attempts to engage her, and we will consider a lorazepam challenge for catatonia if this does not improve,. Inpatient treatment remains medically necessary due to the severity of her symptoms, and ability to provide for her own basic needs without inpatient level of care, and risk for harm to herself if discharged. (1) Suicidal ideation: 10/06 and 10/07 - inpatient is least restrictive and most appropriate setting for care given multiple risk factors, passive SI, hopelessness, pain, poor sleep, restlessness. 10/08 -patient endorsing suicidal thoughts with a plan to starve herself, and reports that she has been restricting intake with unknown amount of weight loss. She is underweight with BMI 15.4. Continue to monitor p.o. intake and encourage good nutrition. 10/09 - Pt denies active SI, but continues to believe that she is "reaching the end" and that is imminent, which further contributes to her anxiety 10/11 -today patient is reporting to harm herself, and states that she would "probably" tried to end her life if she were not in the hospital. 10/12 - The patient reports today that she does not feel that it will be necessary for her to commit suicide because she is to be put to in the morning by lethal injection. (2) Bipolar disorder: 10/06 - She had been stable for many years on Zyprexa +/- Depakote and trazodone although occasional low moods often seasonally mediated and anxiety at times failing Cymbalta due to PANIAGUA's. Given this history I would like to keep her on a mood stabilizer but am concerned about hair loss and tremor and possible compounded cognitive impairment with Depakote so I held this, so will keep Zyprexa 10mg for now.stop Depakote, continue Zyprexa 10mg, start Remeron 15mg/hs 10/07 - stopped zyprexa to r/o akathisia (5mg tonight then off), returned to Seroquel (due to sedation stopped Remeron as well) 100mg tonight then 200mg thereafter with hope would stabilize, help depression and off label help sleep and anxiety, initial target dose if 200mg watching to assure not too fatigued as per last trial t 300mg when she had enuresis and daytime fatigue. She is now at lowered dose of morphine so fatigue and oversedation less likely Strongly consider Lamictal for mood stabilization, due to h/o break through depression on Seroquel in the noel, titration briefly discussed today but patient was too overwhelmed to consent. 10/08 -Continue quetiapine 200 mg at bedtime, and at 50 mg as needed dose for sleep. Reviewed the risks, benefits, and side effects of lamotrigine, which was also reviewed with her yesterday, including the risk of serious rash/SJS. She agreed to a trial, and will start 25 mg daily. -Order fasting labs for monitoring on an atypical antipsychotic. 10/09 - Planning to initiate quetiapine 25mg BID at 0900 and 1400; will order 25mg q4h prn for anxiety/disorganized thoughts. Will continue quetiapine 200mg at bedtime with 50mg additional dose as needed for sleep. - Will attempt to get fasting labs tomorrow morning, as patient had eaten overnight and the blood test could not be completed today - Continue lamotrigine 25mg daily 10/10 - Will titrate daytime doses of quetiapine to 50mg BID with continued 200mg/50mg bedtime dosing - Continue lamotrigine 25mg daily - Will restart mirtazapine at 15mg as patient continues to experience insomnia, receiving only 1.75 hours of sleep last evening 10/11 -Continue current medications; quetiapine just increased yesterday with scheduled dosing throughout the day as well as as needed dose; continue to titrate to effective dose. Sleep improved with resumption of mirtazapine. 10/13 hopefully can titrate Seroquel tomorrow. 10/14--doesn't appear that benefiting much from Seroquel, hesitant to titrate given sedation, tremor and gait. Appetite remains poor. Refused meds this am. Was losing weight on Zyprexa. Trial of a typical agent (haldol) may be appropriate, will defer to primary team. will note that if patient continues to refuse PO medications, she should receive meds over objection as or serious injury to self would come from psychotic disorder resulting in poor PO and she will not improve without such medication. Refusal of meds and level of psychosis would be indication for involuntary commitment. 10/15--patient refusing medications and not answering questions today. She did converse with the social professionals and was able to eat, but was uncooperative with my attempt to interview her. She has not received quetiapine in 2 days. I will order haloperidol as needed, and consider a 302 involuntary commitment and me dications over objection if she does not improve in the next 24 hours. -Patient appears more altered today. She has not had labs since 10/05/2018, so will order a CMP, CBC, and UA to rule out electrolyte abnormalities, UTI, and look for signs of infection or other medical issues that could contribute to deteriorating mental status/delirium. -Consider EEG. (3) Akathisia: 10/06/18 - possibly neuroleptic induced, worsened by anxiety. Working theory is lowered dose of morphine uncovered akathisia caused by Zyprexa need to gather more history to consider need for AAP vs. mood stabilizer or both and prior response to other meds, would like to avoid anticholinergics given cognitive concerns 10/07/18 - she is having insomnia, needs mood stabilization and antidepressant, she did have some fatigue on 300mg but now on lowered dose of morphine. There were possibly two instances of enuresis but 200mg consistently was never tested over longer term for treatment, and given akathisia do not wish to use Clozaril and other AAP ongoing likelihood of akathisia so will retrial Seroquel titration to 200mg watching energy, and monitoring for nighttime urination. Patient affirms understanding history and current situation reviewed and she agrees with this plan as it supports multiple symptoms and leads to reduction of polypharmacy. 10/09 - Unclear if tremor and restlessness is true akathisia or related to anxiety - as it is not constant and appears to be worse when anxiety is highest - Continue to observe, but will refrain from treating with additional medication at this time - No evidence of cogwheeling or dystonia on physical exam 10/13 --EPS resolved with Artane 10/12 -Cogwheeling is present today on physical examination. The patient was give n diphenhydramine 25 mg IM and is being observed. Her symptoms do appear to be consistent with akathisia, although they do appear to wax and wane. (4) Cognitive disorder: 10/06/18 - I am concerned about her cognition as her overall MMSE-like assessment was near normal outside of a few points, but her CLOX was notably poor indicating poor executive function concerns. Again I will need to revewi PCM's records to see what labs and studies have been done to r/u reversible causes of cognitive decline. TSH WNL, LFTs WNL. Furthermore morphine and zyprexa and residual VPA can contribute to poor cognition. WIll add MVI for now to support. 10/07 - review of remainder of labs from Dr Davis cited in 10/07 note B12, cbc, CMP vit D all WNL, could be h/o alcohol, polypharmacy with narcotic and AAP, and VPA although the latter has been stopped. There are no focal findings on exam. CLOX I indicates frontal lobe/executive issues but no other obvious release signs or personality changes or overt disinhibition. Recommend referral to neuropsych testing at [facility] after discharge for further characterization of her deficits as they may be pseudo dementia of depression or medications or both. 10/12 -Cognitive testing currently is not possible, due to the degree of the patient's thought disorganization and psychotic thinking. (5) Anxiety: 10/06/18 - remeron off label, zyprexa off label 10/07/18 - off remeron onto seroquel may have some off label help for sleep and anxiety, supportive therapy on milieu as patient works through some roots of anxiety in divulging her medication diversion 10/09 - Quetiapine 25mg BID at 0900 and 1400 - with prn doses available q4h prn - Continue supportive therapy and engage patient in groups and active coping strategies as able 10/10 - Titrating daytime doses of quetiapine to 50mg BID, continue prn dosing if necessary - Will restart mirtazapine at 15mg this evening to target insomnia and persistent ruminations regarding health and feelings of guilt - If restart of mirtazapine is over-sedating, can consider reducing dose to 7.5mg qHS 10/12 -The patient's underlying anxiety may be exacerbated seizure. She describes a restless, "jumpy" feeling much of the time. She also notes that it is sometimes difficult for her to swallow and her muscles feel "stiff." On examination, today, there is cogwheel rigidity. (6) Chronic pain: 10/06/18 - continue home dose of morphine (if Remeron not effective for mood consider SNRI desvenlafaxine with caution) 10/07/18 - patient admits to real pain but taking her morphine less than prescribed for many years and up until recently diverting the rest for money, she states she has recently changed this practice but is concerned about how to tell her doctors and the emerging financial strain now that she is no longer diverting her medications. This is a major source of her anxiety, possibly contributing to depression and weight loss as well. - request the weekday team help her to tell her PCM and psychiatrist, and then to work out possible relationship with pain clinic for [place] or related opiate agonist/antagonist so that her pain can be treated and not diverted if possible. 10/08 -Patient too distraught, psychotic, and disorganized today to address this. 10/09 - Continues to verbalize pain; states it is manageable 10/11 -Patient endorses guilt at times related to selling her prescribed morphine, and this has not yet been addressed with her PCP, who is out of the office until next week. The patient remains to distraught and psychotic to process this, so will revisit it next week. Inventory Assets Strengths: voluntary, good rapport with outpatient MD Needs: support, further medical record reveiw and outpatient f/u Risk Factors Assessment Male: No : Yes Do You Have Access To A Gun?: No Health Problems: Yes Mental Health Diagnoses: Yes Substance Use Disorders: No Previous Attempt: No Family History of Suicide: No Previous Psychiatric Hospitalization: Yes Hopelessness: Yes Smoker: Yes Protective Factors Assessment Evangelical Beliefs: Yes : No Employed: No (Disability for back pain from [employer]) Good Rapport with Provider: Yes Interval History Identifying Information ALINA STONE is a 58-year-old F who currently lives in [facility], has her own home but presently staying with a friend "to help her," who has a history of Bipolar disorder and was admitted on 10/06/18 00:28 on a 201 voluntary status for restlessness, anxiety, racing thoughts and thoughts of wanting to . Chief Complaint Patient nonverbal. Review of Systems Sleep Information Total Hours of Sleep: 6 Sleep Comments: pt on q-15 minute checks Meal Information Percent Meal Consumed - Breakfast: 0 Percent Meal Consumed - Lunch: 30 Percent Meal Consumed - Dinner: 100 Nutrition Comment: boost with lunch Subjective Subjective Patient was seen & assessed and interval progress reviewed with Nursing and social work. Staff report she refused all of her bedtime medications last evening, stating she had given up" I might as well just end it." She made comments that the police were after her, and that she was in trouble, and being tormented in her dreams. She did eat with staff encouragement, and had an episode of urinary incontinence. She again refused her medications this morning. Today, she has remained in her room in bed. At times, when staff approached her, she responds appropriately, but other times such her eyes tightly and will not answer. On my assessment, her eyes were initially open and she was coughing and moving her extremities when I entered the room. Once I sat down and started to talk to her, she closed her eyes tightly and crossed her arms over her abdomen, and would not open her eyes or respond to questions. The social professionals joined us and both attempted to engage her, but she did not respond verbally or open her eyes. Physical Exam Psychiatric Orientation: + not alert and + uncooperative Apperance: appropriately dressed and appropriately groomed Thin, appears much older than stated age. No eye contact, kept eyes closed. No visible tremulousness of upper or lower extremities, but mild cogwheeling on upper extremity exam. Nonverbal. Affect: + constricted affect Patient would not answer Nonverbal Nonverbal Nonverbal Nonverbal Nonverbal Cognitively impaired Insight: + severely impaired insight Judgement: + severely impaired judgement Vital Signs (Past 24 Hours) Last Vital Signs Temp 36.3 C L 10/14/18 06:56 Pulse 88 10/15/18 12:16 Resp 18 10/15/18 12:16 BP 124/84 10/15/18 12:16 Pulse Ox 98 10/06/18 01:41 See physical exam by Dr East in the ER 10/05/18 which has been reviewed and accepted for purposes of this H&P Results & Data Current Inpatient Medications Current Inpatient Medications: Current Inpatient Medications Acetaminophen (Tylenol) 650 mg PO Q4H PRN PRN Reason: Headache or Minor Fever Stop: 11/05/18 01:21 Al Hydrox/Mg Hydrox/Simethicone (Maalox) 30 ml PO Q4H PRN PRN Reason: GI Upset Stop: 11/05/18 01:21 Atorvastatin [facility]) [facility] Stop: 11/05/18 08:59 Last Admin: 10/15/18 10:32 Dose: Not Given Documented by: Bismuth Subsalicylate (Kaopectate) 15 ml PO PRN PRN PRN Reason: Loose Stool Stop: 11/05/18 01:21 Hydroxyzine HCl (Vistaril) 25 mg PO Q4H PRN PRN Reason: Anxiety Stop: 11/05/18 01:21 Last Admin: 10/12/18 10:04 Dose: 25 mg Documented by: Lamotrigine (Lamictal) [facility] Stop: 11/07/18 09:29 Last Admin: 10/15/18 10:31 Dose: Not Given Documented by: Magnesium Hydroxide (Milk Of Magnesia) 30 ml PO DAILY PRN PRN Reason: Heartburn Stop: 11/05/18 01:21 Last Admin: 10/09/18 15:32 Dose: 30 ml Documented by: Mirtazapine (Remeron) 15 mg PO HS [facility] Stop: 11/09/18 21:59 Last Admin: 10/14/18 23:03 Dose: Not Given Documented by: Morphine Sulfate (Ms Contin) 30 mg PO HS [facility] Stop: 10/20/18 21:59 Last Admin: 10/14/18 23:03 Dose: Not Given Documented by: Morphine Sulfate (Morphine Sulfate Ir) 15 mg PO Q6 PRN PRN Reason: Pain Stop: 10/20/18 01:29 Last Admin: 10/13/18 07:50 Dose: 15 mg Documented by: Multivitamins (Multivitamin Tab) 1 tab PO QAM SHUN Stop: 11/05/18 08:59 Last Admin: 10/15/18 10:32 Dose: Not Given Documented by: Nicotine (Nicoderm Cq) 21 mg TD QAM SHUN Stop: 11/05/18 08:59 Last Admin: 10/15/18 10:32 Dose: Not Given Documented by: Nicotine Polacrilex (Nicorette 2mg) 1 piece MT UD PRN PRN Reason: Nicotine Withdrawal Stop: 11/05/18 01:21 Quetiapine Fumarate (Seroquel) 200 mg PO HS SHUN Stop: 11/07/18 21:59 Last Admin: 10/14/18 23:03 Dose: Not Given Documented by: Quetiapine Fumarate (Seroquel) 50 mg PO HS PRN PRN Reason: Insomnia Stop: 11/07/18 21:59 Last Admin: 10/10/18 00:28 Dose: 50 mg Documented by: Quetiapine Fumarate (Seroquel) 25 mg PO Q4H PRN PRN Reason: anxiety/agitation Stop: 11/08/18 11:44 Last Admin: 10/11/18 17:11 Dose: 25 mg Documented by: Quetiapine Fumarate (Seroquel) 50 mg PO BID@0900,1400 [facility] Stop: 11/10/18 08:59 Last Admin: 10/15/18 13:33 Dose: Not Given Documented by: Sodium Chloride (Proberta Nasal) 1 - 2 sprays NA PRN PRN PRN Reason: Nasal Dryness/Congestion Stop: 11/05/18 01:21 Trihexyphenidyl HCl (Artane) 2 mg PO BID SHUN Stop: 11/11/18 20:59 Last Admin: 10/15/18 10:28 Dose: Not Given Documented by: Mental Health & Subst Abuse Tx Psychiatrist Name of Psychiatrist: Kim Mendoza - Dr. Borden Psychiatrist's Date of Appointment with Psychiatrist: 10/19/18 Time of Appointment with Psychiatrist: 9:50 am Psychiatric Appointment Comment: [address] - Next appointment - 10/24@11:30 Therapist Name of Therapist: [facility] - Manuel Weiner Therapist's Date of Therapist Appointment: 10/15/18 Time of Therapist Appointment: 3:00 p.m. Therapy Appointment Comment: [address], [place], [place] [facility] Name of [facility]utter: None Post Discharge Appointments Primary Care Physician Name Of Family Doctor: Dr. Yovany Davis Primary Care Date of Appointment with PCP: 10/18/18 Time of Appointment with PCP: 9:50am Provider Appointment Comment: [address], [address], [place] Contact Information Discharge Discharge Address: [address] [place] [address] CPT Code CPT Code 13746 (1) Bipolar disorder Active/Remission status: currently active Current bipolar episode type: depressed Current episode severity: severe Psychotic features: with psychotic features Qualified Code(s): F31.5 - Bipolar disorder, current episode depressed, severe, with psychotic features
[2018-10-15 15:47] LABS: Basophils # (auto) 0.03 K/uL (0-0.2); Basophils % (auto) 0.3 %; Eosinophils # (auto) 0.01 K/uL (0-0.5); Eosinophils % (auto) 0.1 %; Hematocrit (blood only) 47.4 % (37-47); Hemoglobin 17.2 g/dL (12.0-16.0); Immature Granulocytes # (auto) 0.03 K/uL (0.00-0.02); Immature Granulocytes % (auto) 0.3 %; Lymphocytes % (auto) 15.3 %; Mean Corpuscular Hgb Conc 36.3 g/dL (32-36); Mean Corpuscular Volume 94.2 fL (80-100); Mean Platelet Volume 9.6 fL (7.4-10.4); Monocytes # (auto) 1.27 K/uL (0.11-0.59); Monocytes % (auto) 10.8 %; Neutrophils # (auto) 8.64 K/uL (1.4-6.5); Neutrophils % (auto) 73.2 %; Platelet Count 347 K/uL (130-400); RDW Coefficient of Variation 12.4 % (11.5-14.5); RDW Standard Deviation 42.4 fL (36.4-46.3); Red Blood Count 5.03 M/uL (4.2-5.4); White Blood Count 11.78 K/uL (4.8-10.8)
[2018-10-15 16:06] LABS: Albumin Level 4.2 gm/dl (3.4-5.0); BUN Creatinine Ratio 20.8 (10-20); Calcium 9.5 mg/dl (8.5-10.1); Creatinine Clr Calc Pharmacy 52.7 ml/min; Est GFR (African American) 88.8; Est GFR (Non-African American) 76.6
[2018-10-15 16:11] LABS: Albumin Globulin Ratio 1.2 (0.9-2); Bilirubin,Total 1.1 mg/dl (0.2-1); Globulin 3.5 gm/dl (2.5-4.0); Total Protein 7.7 gm/dl (6.4-8.2)
[2018-10-15 20:35] LABS: Appearance Urine Clear (Clear); Bilirubin Urine Negative (Negative); Blood Urine Negative (Negative); Color Urine Yellow; Glucose Urine UA Negative (Negative); Ketones Urine 1+ (Negative); Leukocyte Esterase Urine Negative (Negative); Nitrite Urine Negative (Negative); Protein Urine Negative (Negative); Specific Gravity Urine 1.024 (1.000-1.030); Urobilinogen Urine Negative (Negative)
[2018-10-15] MEDS: MoRPHine SULFATE CR 15 MG TABCR PO SCH (21:59)
[2018-10-15] MEDS: MIRTAZAPINE TAB 15 MG TAB PO SCH (21:59)
[2018-10-15] MEDS: QUETIAPINE FUMARATE 200 MG TAB PO SCH (22:00)
[2018-10-16] MEDS ORDERED: LORazepam 1 MG TAB PO STA (09:13)
--- NOTE | 2018-10-16 09:58 | Psychiatric Progress Note ---
Date of Service October 16, 2018 Impression / Recommendations Impression 58y/o female who presented with low mood, restlessness, anxiety, and SI in the context of poor p.o. intake, low body weight with BMI of 15.4, and perseveration on delusions that she is going to at any moment, consistently stating she will not make it through the day. She was just discharged from [facility] 5 days prior to admission, where she was treated for similar symptoms, but was noncompliant with medications after discharge, not believing she needed them. Multiple medication changes have been made to address mood, anxiety, psychosis, and sleep: Initially Depakote was discontinued, olanzapine 10 mg at bedtime continued, and mirtazapine started; but due to concerns for akathisia, olanzapine was discontinued in favor of quetiapine. Lamotrigine started for bipolar depression, and and the plan had been to titrate quetiapine, which she is unfortunately now refusing medications over the past 2 days. She has severe, psychotic depression with catatonia, is not responding to attempts to engage her, has to be fed and provided fluids by staff, and is refusing medications. Ordered 1 mg lorazepam challenge for catatonia. We will also pursue a 302 involuntary commitment, as she is not able to give informed consent for treatment, was asking to leave and attempting to leave the unit yesterday, is refusing to engage in treatment or take medications, is not eating and has lost weight, is cachectic with a BMI of 15.1, and is unable to provide for her own basic needs with a high risk of /disability/serious injury in the next 30 days if she continues in this vein without treatment. Inpatient treatment remains medically necessary due to the severity of her symptoms, and ability to provide for her own basic needs without inpatient level of care, and risk for harm to herself if discharged. (1) Suicidal ideation: 10/06 and 10/07 - inpatient is least restrictive and most appropriate setting for care given multiple risk factors, passive SI, hopelessness, pain, poor sleep, restlessness. 10/08 -patient endorsing suicidal thoughts with a plan to starve herself, and reports that she has been restricting intake with unknown amount of weight loss. She is underweight with BMI 15.4. Continue to monitor p.o. intake and encourage good nutrition. 10/09 - Pt denies active SI, but continues to believe that she is "reaching the end" and that is imminent, which further contributes to her anxiety 10/11 -today patient is reporting to harm herself, and states that she would "probably" tried to end her life if she were not in the hospital. 10/12 - The patient reports today that she does not feel that it will be necessary for her to commit suicide because she is to be put to in the morning by lethal injection. 10/16 -patient is eating very little, not drinking, stating alternatively that she will at any moment or that she is already .. (2) Bipolar disorder: 10/06 - She had been stable for many years on Zyprexa +/- Depakote and trazodone although occasional low moods often seasonally mediated and anxiety at times failing Cymbalta due to PANIAGUA's. Given this history I would like to keep her on a mood stabilizer but am concerned about hair loss and tremor and possible compounded cognitive impairment with Depakote so I held this, so will keep Zyprexa 10mg for now.stop Depakote, continue Zyprexa 10mg, start Remeron 15mg/hs 10/07 - stopped zyprexa to r/o akathisia (5mg tonight then off), returned to Seroquel (due to sedation stopped Remeron as well) 100mg tonight then 200mg thereafter with hope would stabilize, help depression and off label help sleep and anxiety, initial target dose if 200mg watching to assure not too fatigued as per last trial t 300mg when she had enuresis and daytime fatigue. She is now at lowered dose of morphine so fatigue and oversedation less likely Strongly consider Lamictal for mood stabilization, due to h/o break through depression on Seroquel in the noel, titration briefly discussed today but patient was too overwhelmed to consent. 10/08 -Continue quetiapine 200 mg at bedtime, and at 50 mg as needed dose for sleep. Reviewed the risks, benefits, and side effects of lamotrigine, which was also reviewed with her yesterday, including the risk of serious rash/SJS. She agreed to a trial, and will start 25 mg daily. -Order fasting labs for monitoring on an atypical antipsychotic. 10/09 - Planning to initiate quetiapine 25mg BID at 0900 and 1400; will order 25mg q4h prn for anxiety/disorganized thoughts. Will continue quetiapine 200mg at bedtime with 50mg additional dose as needed for sleep. - Will attempt to get fasting labs tomorrow morning, as patient had eaten overnight and the blood test could not be completed today - Continue lamotrigine 25mg daily 10/10 - Will titrate daytime doses of quetiapine to 50mg BID with continued 200mg/50mg bedtime dosing - Continue lamotrigine 25mg daily - Will restart mirtazapine at 15mg as patient continues to experience insomnia, receiving only 1.75 hours of sleep last evening 10/11 -Continue current medications; quetiapine just increased yesterday with scheduled dosing throughout the day as well as as needed dose; continue to titrate to effective dose. Sleep improved with resumption of mirtazapine. 10/13 hopefully can titrate Seroquel tomorrow. 10/14--doesn't appear that benefiting much from Seroquel, hesitant to titrate given sedation, tremor and gait. Appetite remains poor. Refused meds this am. Was losing weight on Zyprexa. Trial of a typical agent (haldol) may be appro priate, will defer to primary team. will note that if patient continues to refuse PO medications, she should receive meds over objection as or serious injury to self would come from psychotic disorder resulting in poor PO and she will not improve without such medication. Refusal of meds and level of psychosis would be indication for involuntary commitment. 10/15--patient refusing medications and not answering questions today. She did converse with the social problems specialist and was able to eat, but was uncooperative with my attempt to interview her. She has not received quetiapine in 2 days. I will order haloperidol as needed, and consider a 302 involuntary commitment and medications over objection if she does not improve in the next 24 hours. -Patient appears more altered today. She has not had labs since 10/05/2018, so will order a CMP, CBC, and UA to rule out electrolyte abnormalities, UTI, and look for signs of infection or other medical issues that could contribute to deteriorating mental status/delirium. -Consider EEG. 10/16--patient refusing medications for the third day in a row, not eating very much, refusing to drink, and attempted to leave the unit last night. She is ref using all groups, and will not engage or talk with staff. She continues to state that she believes she is , or will at any moment. She has been in her bed most of the time, and does not respond to questions or commands. CBC, CMP, and UA were checked yesterday and were notable for elevated WBC 11.78, hemoglobin 17.2, hematocrit 47.2, elevated MCH and MCV HC. Total bilirubin was elevated at 1.1, and remainder of CMP was normal. UA showed 1+ ketones. Vital signs were normal this morning. Lab results do not indicate any active medical conditions contributing to her altered mental status and decreased responsiveness. Ketonuria does indicate starvation, and if she is already underweight with a BMI of 15.1, she is at risk if she continues to refuse to eat. Current symptoms are consistent with catatonia and I would like to do a lorazepam challenge; 1 mg p.o. stat was ordered, but the patient is refusing to take oral medications. We will need to use IM Lorazepam. As she is severely depressed, psychotic, catatonic, unable to appreciate the risks and benefits of treatment, and is refusing potentially life-saving treatment including medications, fluids, and food, we will proceed with a 302 involuntary commitment. (3) Akathisia: 10/06/18 - possibly neuroleptic induced, worsened by anxiety. Working theory is lowered dose of morphine uncovered akathisia caused by Zyprexa need to gather more history to consider need for AAP vs. mood stabilizer or both and prior response to other meds, would like to avoid anticholinergics given cognitive concerns 10/07/18 - she is having insomnia, needs mood stabilization and antidepressant, she did have some fatigue on 300mg but now on lowered dose of morphine. There were possibly two instances of enuresis but 200mg consistently was never tested over longer term for treatment, and given akathisia do not wish to use Clozaril and other AAP ongoing likelihood of akathisia so will retrial Seroquel titration to 200mg watching energy, and monitoring for nighttime urination. Patient affirms understanding history and current situation reviewed and she agrees with this plan as it supports multiple symptoms and leads to reduction of polypharmacy. 10/09 - Unclear if tremor and restlessness is true akathisia or related to anxiety - as it is not constant and appears to be worse when anxiety is highest - Continue to observe, but will refrain from treating with additional medication at this time - No evidence of cogwheeling or dystonia on physical exam 10/13 --EPS resolved with Artane 10/12 -Cogwheeling is present today on physical examination. The patient was given diphenhydramine 25 mg IM and is being observed. Her symptoms do appear to be consistent with akathisia, although they do appear to wax and wane. 10/16 -although cogwheeling and tremulousness continue, we are avoiding deliriogenic medications given her worsening mental status. (4) Cognitive disorder: 10/06/18 - I am concerned about her cognition as her overall MMSE-like assessment was near normal outside of a few points, but her CLOX was notably poor indicating poor executive function concerns. Again I will need to review PCM's records to see what labs and studies have been done to r/u reversible causes of cognitive decline. TSH WNL, LFTs WNL. Furthermore morphine and zyprexa and residual VPA can contribute to poor cognition. Will add MVI for now to support. 10/07 - review of remainder of labs from Dr Davis cited in 10/07 note B12, cbc, CMP vit D all WNL, could be h/o alcohol, polypharmacy with narcotic and AAP, and VPA although the latter has been stopped. There are no focal findings on exam. CLOX I indicates frontal lobe/executive issues but no other obvious release signs or personality changes or overt disinhibition. Recommend referral to neuropsych testing at [facility] after discharge for further characterization of her deficits as they may be pseudo dementia of depression or medications or both. 10/12 -Cognitive testing currently is not possible, due to the degree of the patient's thought disorganization and psychotic thinking. (5) Anxiety: 10/06/18 - remeron off label, zyprexa off label 10/07/18 - off remeron onto seroquel may have some off label help for sleep and anxiety, supportive therapy on milieu as patient works through some roots of anxiety in divulging her medication diversion 10/09 - Quetiapine 25mg BID at 0900 and 1400 - with prn doses available q4h prn - Continue supportive therapy and engage patient in groups and active coping strategies as able 10/10 - Titrating daytime doses of quetiapine to 50mg BID, continue prn dosing if necessary - Will restart mirtazapine at 15mg this evening to target insomnia and persistent ruminations regarding health and feelings of guilt - If restart of mirtazapine is over-sedating, can consider reducing dose to 7.5mg qHS 10/12 -The patient's underlying anxiety may be exacerbated seizure. She describes a restless, "jumpy" feeling much of the time. She also notes that it is sometimes difficult for her to swallow and her muscles feel "stiff." On examination, today, there is cogwheel rigidity. (6) Chronic pain: 10/06/18 - continue home dose of morphine (if Remeron not effective for mood consider SNRI desvenlafaxine with caution) 10/07/18 - patient admits to real pain but taking her morphine less than prescribed for many years and up until recently diverting the rest for money, she states she has recently changed this practice but is concerned about how to tell her doctors and the emerging financial strain now that she is no longer diverting her medications. This is a major source of her anxiety, possibly contributing to depression and weight loss as well. - request the weekday team help her to tell her PCM and psychiatrist, and then to work out possible relationship with pain clinic for [place] or related opiate agonist/antagonist so that her pain can be treated and not diverted if possible. 10/08 -Patient too distraught, psychotic, and disorganized today to address this. 10/09 - Continues to verbalize pain; states it is manageable 10/11 -Patient endorses guilt at times related to selling her prescribed morphine, and this has not yet been addressed with her PCP, who is out of the office until next week. The patient remains to distraught and psychotic to process this, so will revisit it next week. 10/16 -Patient has refused morphine the last 2 days. If she resumes it at some point, may want to use a lower dose to avoid oversedation. Inventory Assets Strengths: voluntary, good rapport with outpatient MD Needs: support, further medical record reveiw and outpatient f/u Risk Factors Assessment Male: No : Yes Do You Have Access To A Gun?: No Health Problems: Yes Mental Health Diagnoses: Yes Substance Use Disorders: No Previous Attempt: No Family History of Suicide: No Previous Psychiatric Hospitalization: Yes Hopelessness: Yes Smoker: Yes Protective Factors Assessment Congregation Beliefs: Yes : No Employed: No (Disability for back pain from [employer]) Good Rapport with Provider: Yes Interval History Identifying Information ALINA STONE is a 58-year-old F who currently lives in [facility], has her own home but presently staying with a friend "to help her," who has a history of Bipolar disorder and was admitted on 10/06/18 00:28 on a 201 voluntary status for restlessness, anxiety, racing thoughts and thoughts of wanting to . Chief Complaint Patient nonverbal, nonresponsive. Review of Systems Notes Patient is unable/unwilling to answer any questions. Sleep Information Total Hours of Sleep: 5.5 Sleep Comments: pt remained in room all shift. pt on q-15 minute checks Meal Information Percent Meal Consumed - Breakfast: 0 Percent Meal Consumed - Lunch: 30 Percent Meal Consumed - Dinner: 25 Nutrition Comment: boost with lunch Subjective Subjective Patient was seen & assessed and interval progress reviewed with Nursing and social work. Staff report she stayed in bed all day yesterday, did not attend groups, did not respond to staff attempts to engage her, and refused all medications (the second day in a row). She refused to allow staff to weigh her, and ate very little -staff had to put the food on the fork and assist her to eat. She did open her eyes and briefly interact with the social problems specialist, telling her that it was "too late," and that if she would not have opened her eyes, she would have . She attempted to leave the unit, and when she realized the door was locked, said "I guess I can't leave." She went into the group room where music was playing, and sang along with a Jordan Esha song, even identifying him as the huff. She refused all groups, but did allow blood draw for labs and provide a urine sample for UA. On my assessment today, she was seen several times. She initially did not respond to attempts to engage her verbally, and did not respond to physical touch. She did not speak, would not follow commands or open her eyes. She was then seen with the social problems specialist, and played music, as the patient had commented on a specific band that she liked. She again did not respond, but when assisted to sit up, she did briefly open her eyes and verbalize, stating "it's too late," which she repeated a couple times. She took a small sip of water when the straw was placed between her lips, but then refused to drink more, and lay back down. She did not respond to questions about how she was doing, or if she needed her clothes to be changed, as she smelled strongly of urine. Physical Exam Psychiatric Lying in bed with eyes closed, does not respond verbally or follow commands. Uncooperative with assessment. Apperance: appropriately dressed and + disheveled; + inappropriately groomed and + did not appear stated age Very thin, cachectic white female appearing significantly older than her stated age. Malodorous, smells of urine. No eye contact, keeps eyes closed. Tremulousness notable and eyelids and hands. Patiently actively resents attempts to adjust her in bed or assist her in sitting up. Speech: + mute (With the exception of stating "it's too late" a couple of times) Affect: + flat affect and + constricted affect Thought Process: + perseveration Thought Content: + delusions and + hopelessness Patient does not answer, but does state "it's too late," and has previously stated she believes she is going to at any moment, or is already Cognition: + recent memory not intact, + remote memory not intact, + attention not intact and + language not intact Insight: + severely impaired insight Judgement: + severely impaired judgement Vital Signs (Past 24 Hours) Last Vital Signs Temp 36.4 C L 10/16/18 06:53 Pulse 79 10/16/18 06:53 Resp 14 10/16/18 06:53 BP 127/84 10/16/18 06:53 Pulse Ox 98 10/06/18 01:41 See physical exam by Dr East in the ER 10/05/18 which has been reviewed and accepted for purposes of this H&P Results & Data Laboratory Results Laboratory Results - last 24 hr 10/15/18 10/15/18 10/15/18 15:31 15:31 20:05 WBC 11.78 H RBC 5.03 Hgb 17.2 H Hct 47.4 H MCV 94.2 MCH 34.2 H MCHC 36.3 H RDW Std Deviation 42.4 RDW Coeff of Haley 12.4 Plt Count 347 MPV 9.6 Immature Gran % (Auto) 0.3 Neut % (Auto) 73.2 Lymph % (Auto) 15.3 [place] % (Auto) 10.8 Eos % (Auto) 0.1 Baso % (Auto) 0.3 Immature Gran # (Auto) 0.03 H Neut # (Auto) 8.64 H Lymph # (Auto) 1.80 [place] # (Auto) 1.27 H Eos # (Auto) 0.01 Baso # (Auto) 0.03 Sodium 138 Potassium 4.0 Chloride 104 Carbon Dioxide 26 Anion Gap 8.0 BUN 17 Creatinine 0.84 Est Cr Clr Drug Dosing 52.7 Est GFR ( Amer) 88.8 Est GFR (Non-Af Amer) 76.6 BUN/Creatinine Ratio 20.8 H Glucose 99 Calcium 9.5 Total Bilirubin 1.1 H AST 20 ALT 29 Alkaline Phosphatase 66 Total Protein 7.7 Albumin 4.2 Globulin 3.5 Albumin/Globulin Ratio 1.2 Urine Color Yellow Urine Appearance Clear Urine pH 7.0 Ur Specific [place] 1.024 Urine Protein Negative Urine Glucose (UA) Negative Urine Ketones 1+ H Urine Blood Negative Urine Nitrite Negative Urine Bilirubin Negative Urine Urobilinogen Negative Ur Leukocyte Esterase Negative Current Inpatient Medications Current Inpatient Medications: Current Inpatient Medications Acetaminophen (Tylenol) 650 mg PO Q4H PRN PRN Reason: Headache or Minor Fever Stop: 11/05/18 01:21 Al Hydrox/Mg Hydrox/Simethicone (Maalox) 30 ml PO Q4H PRN PRN Reason: GI Upset Stop: 11/05/18 01:21 Atorvastatin Calcium (Lipitor) 20 mg PO QAM SHUN Stop: 11/05/18 08:59 Last Admin: 10/15/18 10:32 Dose: Not Given Documented by: Bismuth Subsalicylate (Kaopectate) 15 ml PO PRN PRN PRN Reason: Loose Stool Stop: 11/05/18 01:21 Haloperidol (Haldol) 2.5 mg PO Q4H PRN PRN Reason: psychosis Stop: 11/14/18 15:22 Hydroxyzine HCl (Vistaril) 25 mg PO Q4H PRN PRN Reason: Anxiety Stop: 11/05/18 01:21 Last Admin: 10/12/18 10:04 Dose: 25 mg Documented by: [facility]) [facility] Stop: 11/07/18 09:29 Last Admin: 10/15/18 10:31 Dose: Not Given Documented by: Magnesium Hydroxide (Milk Of Magnesia) 30 ml PO DAILY PRN PRN Reason: Heartburn Stop: 11/05/18 01:21 Last Admin: 10/09/18 15:32 Dose: 30 ml Documented by: Mirtazapine (Remeron) 15 mg PO [facility] Stop: 11/09/18 21:59 Last Admin: 10/15/18 21:59 Dose: Not Given Documented by: Morphine Sulfate (Ms Contin) 30 mg PO [facility] Stop: 10/20/18 21:59 Last Admin: 10/15/18 21:59 Dose: Not Given Documented by: Morphine Sulfate (Morphine Sulfate Ir) 15 mg PO Q6 PRN PRN Reason: Pain Stop: 10/20/18 01:29 Last Admin: 10/13/18 07:50 Dose: 15 mg Documented by: Multivitamins (Multivitamin Tab) 1 tab PO [facility] Stop: 11/05/18 08:59 Last Admin: 10/15/18 10:32 Dose: Not Given Documented by: Nicotine (Nicoderm Cq) 21 mg TD [facility] Stop: 11/05/18 08:59 Last Admin: 10/15/18 10:32 Dose: Not Given Documented by: Nicotine Polacrilex (Nicorette 2mg) 1 piece MT UD PRN PRN Reason: Nicotine Withdrawal Stop: 11/05/18 01:21 Quetiapine Fumarate (Seroquel) 200 mg PO [facility] Stop: 11/07/18 21:59 Last Admin: 10/15/18 22:00 Dose: Not Given Documented by: Quetiapine Fumarate (Seroquel) 50 mg PO HS PRN PRN Reason: Insomnia Stop: 11/07/18 21:59 Last Admin: 10/10/18 00:28 Dose: 50 mg Documented by: Quetiapine Fumarate (Seroquel) 25 mg PO Q4H PRN PRN Reason: anxiety/agitation Stop: 11/08/18 11:44 Last Admin: 10/11/18 17:11 Dose: 25 mg Documented by: Quetiapine Fumarate (Seroquel) 50 mg PO BID@0900,1400 SHUN Stop: 11/10/18 08:59 Last Admin: 10/15/18 13:33 Dose: Not Given Documented by: Sodium Chloride ([place] Nasal) 1 - 2 sprays NA PRN PRN PRN Reason: Nasal Dryness/Congestion Stop: 11/05/18 01:21 Trihexyphenidyl HCl (Artane) 2 mg PO BID SHUN Stop: 11/11/18 20:59 Last Admin: 10/15/18 21:59 Dose: Not Given Documented by: Mental Health & Subst Abuse Tx Psychiatrist [facility] - Dr. Borden Psychiatrist's Date of Appointment with Psychiatrist: 10/19/18 Time of Appointment with Psychiatrist: 9:50 am Psychiatric Appointment Comment: [address] - Next appointment - 10/24@11:30 Therapist Name of Therapist: [facility] Duncan Weiner Therapist's Date of Therapist Appointment: 10/15/18 Time of Therapist Appointment: 3:00 p.m. Therapy Appointment Comment: [address] [place] Office Techn[place] Name of Medical Office Technician: None Post Discharge Appointments Primary Care Physician Name Of Family Doctor: Dr. Yovany Davis Primary [facility] Date of Appointment with PCP: 10/18/18 Time of Appointment with PCP: 9:50am Provider Appointment Comment: [phone], [address], [place] Contact Information Discharge Discharge Address: [address] [place] [address] CPT Code CPT Code 30609 (1) Bipolar disorder Active/Remission status: currently active Current bipolar episode type: depressed Current episode severity: severe Psychotic features: with psychotic features Qualified Code(s): F31.5 - Bipolar disorder, current episode depressed, severe, with psychotic features
[2018-10-16] MEDS: lamoTRIgine 25 MG TAB PO SCH (10:07)
[2018-10-16] MEDS: NICOTINE 21 MG/24 HR TDSY TD SCH (10:07)
[2018-10-16] MEDS: TRIHEXYPHENIDYL HCL 2 MG TAB PO SCH ×2 (10:07→17:50)
[2018-10-16] MEDS: MULTIVITAMIN TAB PO SCH (10:07)
[2018-10-16] MEDS: ATORVASTATIN 20 MG TAB PO SCH (10:07)
[2018-10-16] MEDS: QUETIAPINE FUMARATE 25 MG TABLET PO SCH ×2 (10:08→14:39)
[2018-10-16] MEDS ORDERED: LORazepam 1 MG TAB PO ONE (15:00)
[2018-10-16] MEDS: MoRPHine SULFATE CR 15 MG TABCR PO SCH (17:48)
[2018-10-16] MEDS: QUETIAPINE FUMARATE 200 MG TAB PO SCH (17:50)
[2018-10-16] MEDS: MIRTAZAPINE TAB 15 MG TAB PO SCH (17:51)
[2018-10-17] MEDS: MoRPHine SULFATE IR 15 MG TAB (IMMEDIATE RELEASE) PO PRN (01:20)
[2018-10-17] MEDS: QUETIAPINE FUMARATE 25 MG TABLET PO PRN ×2 (02:35→06:55)
[2018-10-17] MEDS: TRIHEXYPHENIDYL HCL 2 MG TAB PO SCH ×2 (07:51→21:12)
[2018-10-17] MEDS: ATORVASTATIN 20 MG TAB PO SCH (07:51)
[2018-10-17] MEDS: MULTIVITAMIN TAB PO SCH (07:51)
[2018-10-17] MEDS: lamoTRIgine 25 MG TAB PO SCH (07:51)
[2018-10-17] MEDS: QUETIAPINE FUMARATE 25 MG TABLET PO SCH ×2 (07:52→14:16)
[2018-10-17] MEDS ORDERED: LORazepam 2 MG/ML VIAL (IM USE) IM PRN (07:55)
[2018-10-17] MEDS: NICOTINE 21 MG/24 HR TDSY TD SCH (07:58)
[2018-10-17] MEDS: LORazepam 1 MG TAB PO SCH ×2 (09:27→14:16)
--- NOTE | 2018-10-17 10:39 | Psychiatric Progress Note ---
Date of Service October 17, 2018 Impression / Recommendations Impression 58y/o female with bipolar disorder who presented with depression, anxiety, and SI in the context of poor p.o. intake, low body weight with BMI of 15.4, and perseveration on delusions that she is going to at any moment, consistently stating she will not make it through the day. She had just been discharged from [facility] 5 days prior to admission, where she was treated for similar symptoms, but was noncompliant with medications after discharge, not believing she needed them. Multiple medication changes were made to address mood, anxiety, psychosis, and sleep: Initially Depakote was discontinued, olanzapine 10 mg at bedtime continued, and mirtazapine started; but due to concerns for akathisia, olanzapine was discontinued in favor of quetiapine, and lamotrigine was started for bipolar depression. Her mood, psychosis, and anxiety worsened, and she refused medications for several days, tried to leave the unit, was not eating or drinking and lost weight (BMI 15.1), was not able to participate in treatment or respond to staff, and ultimately had to be placed on a 302 involuntary commitment on 10/16/2018 given her inability to to give informed consent for treatment and the potential need to inject her with benzodiazepines to treat catatonia. She is improved with the addition of lorazepam, and is now better able to participate in treatment. Inpatient treatment remains medically necessary due to the severity of her symptoms, and ability to provide for her own basic needs without inpatient level of care, and risk for harm to herself if discharged. (1) Suicidal ideation: 10/06 and 10/07 - inpatient is least restrictive and most appropriate setting for care given multiple risk factors, passive SI, hopelessness, pain, poor sleep, restlessness. 10/08 -patient endorsing suicidal thoughts with a plan to starve herself, and reports that she has been restricting intake with unknown amount of weight loss. She is underweight with BMI 15.4. Continue to monitor p.o. intake and encourage good nutrition. 10/09 - Pt denies active SI, but continues to believe that she is "reaching the end" and that is imminent, which further contributes to her anxiety 10/11 -today patient is reporting to harm herself, and states that she would "probably" tried to end her life if she were not in the hospital. 10/12 - The patient reports today that she does not feel that it will be necessary for her to commit suicide because she is to be put to in the morning by lethal injection. 10/16 -patient is eating very little, not drinking, stating alternatively that she will at any moment or that she is already . 10/17- Mood, SI, and psychosis improving. (2) Bipolar disorder: 10/06 - She had been stable for many years on Zyprexa +/- Depakote and trazodone although occasional low moods often seasonally mediated and anxiety at times failing Cymbalta due to PANIAGUA's. Given this history I would like to keep her on a mood stabilizer but am concerned about hair loss and tremor and possible compounded cognitive impairment with Depakote so I held this, so will keep Zyprexa 10mg for now.stop Depakote, continue Zyprexa 10mg, start Remeron 15mg/hs 10/07 - stopped zyprexa to r/o akathisia (5mg tonight then off), returned to Seroquel (due to sedation stopped Remeron as well) 100mg tonight then 200mg thereafter with hope would stabilize, help depression and off label help sleep and anxiety, initial target dose if 200mg watching to assure not too fatigued as per last trial t 300mg when she had enuresis and daytime fatigue. She is now at lowered dose of morphine so fatigue and oversedation less likely Strongly consider Lamictal for mood stabilization, due to h/o break through depression on Seroquel in the noel, titration briefly discussed today but patient was too overwhelmed to consent. 10/08 -Continue quetiapine 200 mg at bedtime, and at 50 mg as needed dose for sleep. Reviewed the risks, benefits, and side effects of lamotrigine, which was also reviewed with her yesterday, including the risk of serious rash/SJS. She agreed to a trial, and will start 25 mg daily. -Order fasting labs for monitoring on an atypical antipsychotic. 10/09 - Planning to initiate quetiapine 25mg BID at 0900 and 1400; will order 25mg q4h prn for anxiety/disorganized thoughts. Will continue quetiapine 200mg at bedtime with 50mg additional dose as needed for sleep. - Will attempt to get fasting labs tomorrow morning, as patient had eaten overnight and the blood test could not be completed today - Continue lamotrigine 25mg daily 10/10 - Will titrate daytime doses of quetiapine to 50mg BID with continued 200mg/50mg bedtime dosing - Continue lamotrigine 25mg daily - Will restart mirtazapine at 15mg as patient continues to experience insomnia, receiving only 1.75 hours of sleep last evening 10/11 -Continue current medications; quetiapine just increased yesterday with scheduled dosing throughout the day as well as as needed dose; continue to titrate to effective dose. Sleep improved with resumption of mirtazapine. 10/13 hopefully can titrate Seroquel tomorrow. 10/14--doesn't appear that benefiting much from Seroquel, hesitant to titrate given sedation, tremor and gait. Appetite remains poor. Refused meds this am. Was losing weight on Zyprexa. Trial of a typical agent (haldol) may be appropriate, will defer to primary team. will note that if patient continues to refuse PO medications, she should receive meds over objection as or serious injury to self would come from psychotic disorder resulting in poor PO and she will not improve without such medication. Refusal of meds and level of psychosis would be indication for involuntary commitment. 10/15--patient refusing medications and not answering questions today. She did converse with the manager social services and was able to eat, but was uncooperative with my attempt to interview her. She has not received quetiapine in 2 days. I will order haloperidol as needed, and consider a 302 involuntary commitment and medications over objection if she does not improve in the next 24 hours. -Patient appears more altered today. She has not had labs since 10/05/2018, so will order a CMP, CBC, and UA to rule out electrolyte abnormalities, UTI, and look for signs of infection or other medical issues that could contribute to deteriorating mental status/delirium. -Consider EEG. 10/16--patient refusing medications for the third day in a row, not eating very much, refusing to drink, and attempted to leave the unit last night. She is refusing all groups, and will not engage or talk with staff. She continues to state that she believes she is , or will at any moment. She has been in her bed most of the time, and does not respond to questions or commands. CBC, CMP, and UA were checked yesterday and were notable for elevated WBC 11.78, hemoglobin 17.2, hematocrit 47.2, elevated MCH and MCV HC. Total bilirubin was elevated at 1.1, and remainder of CMP was normal. UA showed 1+ ketones. Vital signs were normal this morning. Lab results do not indicate any active medical conditions contributing to her altered mental status and decreased responsiveness. Ketonuria does indicate starvation, and if she is already underweight with a BMI of 15.1, she is at risk if she continues to refuse to eat. Current symptoms are consistent with catatonia and I would like to do a lorazepam challenge; 1 mg p.o. stat was ordered, but the patient is refusing to take oral medications. We will need to use IM Lorazepam. As she is severely depressed, psychotic, catatonic, unable to appreciate the risks and benefits of treatment, and is refusing potentially life-saving treatment including medications, fluids, and food, we will proceed with a 302 involuntary commitment. 10/17--catatonia significantly improved, we will schedule Lorazepam 2 mg 3 times daily and taper as tolerated. --Continue lamotrigine, quetiapine, mirtazapine, and trihexyphenidyl as ordered, which she is now taking willingly. --Encourage group attendance and participation. Work on addressing stressors, including financial concerns, housing, and supports. Scheduled family meeting with son. --Work on discharge planning. (3) Akathisia: 10/06/18 - possibly neuroleptic induced, worsened by anxiety. Working theory is lowered dose of morphine uncovered akathisia caused by Zyprexa need to gather more history to consider need for AAP vs. mood stabilizer or both and prior response to other meds, would like to avoid anticholinergics given cognitive concerns 10/07/18 - she is having insomnia, needs mood stabilization and antidepressant, she did have some fatigue on 300mg but now on lowered dose of morphine. There were possibly two instances of enuresis but 200mg consistently was never tested over longer term for treatment, and given akathisia do not wish to use Clozaril and other AAP ongoing likelihood of akathisia so will retrial Seroquel titration to 200mg watching energy, and monitoring for nighttime urination. Patient affirms understanding history and current situation reviewed and she agrees with this plan as it supports multiple symptoms and leads to reduction of polypharmacy. 10/09 - Unclear if tremor and restlessness is true akathisia or related to anxiety - as it is not constant and appears to be worse when anxiety is highest - Continue to observe, but will refrain from treating with additional medication at this time - No evidence of cogwheeling or dystonia on physical exam 10/13 --EPS resolved with Artane 10/12 -Cogwheeling is present today on physical examination. The patient was given diphenhydramine 25 mg IM and is being observed. Her symptoms do appear to be consistent with akathisia, although they do appear to wax and wane. 10/16 -although cogwheeling and tremulousness continue, we are avoiding deliriogenic medications given her worsening mental status. 10/17--resume trihexyphenidyl 2 mg twice daily. (4) Cognitive disorder: 10/06/18 - I am concerned about her cognition as her overall MMSE-like assessment was near normal outside of a few points, but her CLOX was notably poor indicating poor executive function concerns. Again I will need to review PCM's records to see what labs and studies have been done to r/u reversible causes of cognitive decline. TSH WNL, LFTs WNL. Furthermore morphine and zyprexa and residual VPA can contribute to poor cognition. Will add MVI for now to support. 10/07 - review of remainder of labs from Dr Davis cited in 10/07 note B12, cbc, CMP vit D all WNL, could be h/o alcohol, polypharmacy with narcotic and AAP, and VPA although the latter has been stopped. There are no focal findings on exam. CLOX I indicates frontal lobe/executive issues but no other obvious release signs or personality changes or overt disinhibition. Recommend referral to neuropsych testing at [facility] after discharge for further characterization of her deficits as they may be pseudo dementia of depression or medications or both. 10/12 -Cognitive testing currently is not possible, due to the degree of the patient's thought disorganization and psychotic thinking. (5) Anxiety: 10/06/18 - remeron off label, zyprexa off label 10/07/18 - off remeron onto seroquel may have some off label help for sleep and anxiety, supportive therapy on milieu as patient works through some roots of anxiety in divulging her medication diversion 10/09 - Quetiapine 25mg BID at 0900 and 1400 - with prn doses available q4h prn - Continue supportive therapy and engage patient in groups and active coping strategies as able 10/10 - Titrating daytime doses of quetiapine to 50mg BID, continue prn dosing if necessary - Will restart mirtazapine at 15mg this evening to target insomnia and persistent ruminations regarding health and feelings of guilt - If restart of mirtazapine is over-sedating, can consider reducing dose to 7.5mg qHS 10/12 -The patient's underlying anxiety may be exacerbated seizure. She describes a restless, "jumpy" feeling much of the time. She also notes that it is sometimes difficult for her to swallow and her muscles feel "stiff." On examination, today, there is cogwheel rigidity. (6) Chronic pain: 10/06/18 - continue home dose of morphine (if Remeron not effective for mood consider SNRI desvenlafaxine with caution) 10/07/18 - patient admits to real pain but taking her morphine less than prescribed for many years and up until recently diverting the rest for money, she states she has recently changed this practice but is concerned about how to tell her doctors and the emerging financial strain now that she is no longer diverting her medications. This is a major source of her anxiety, possibly contributing to depression and weight loss as well. - request the weekday team help her to tell her PCM and psychiatrist, and then to work out possible relationship with pain clinic for [place] or related opiate agonist/antagonist so that her pain can be treated and not diverted if possible. 10/08 -Patient too distraught, psychotic, and disorganized today to address this. 10/09 - Continues to verbalize pain; states it is manageable 10/11 -Patient endorses guilt at times related to selling her prescribed morphine, and this has not yet been addressed with her PCP, who is out of the office until next week. The patient remains to distraught and psychotic to process this, so will revisit it next week. 10/16 -Patient has refused morphine the last 2 days. If she resumes it at some point, may want to use a lower dose to avoid oversedation. 10/17 -Lower morphine dose to 15 mg at bedtime, and continue 15 mg as needed dose, as patient is now receiving scheduled lorazepam for catatonia, and want to avoid EXTERNAL AUDITOR depression and oversedation. -Called Dr. Davis to review morphine misuse and his recs re: ongoing morphine/pain management. Spoke with his nurse, reviewed course of treatment thus far, and gave contact information for him to call if he has any further treatment recommendations. Inventory Assets Strengths: voluntary, good rapport with outpatient MD Needs: support, further medical record reveiw and outpatient f/u Risk Factors Assessment Male: No : Yes Do You Have Access To A Gun?: No Health Problems: Yes Mental Health Diagnoses: Yes Substance Use Disorders: No Previous Attempt: No Family History of Suicide: No Previous Psychiatric Hospitalization: Yes Hopelessness: Yes Smoker: Yes Protective Factors Assessment Spiritism Beliefs: Yes : No Employed: No (Disability for back pain from [employer]) Good Rapport with Provider: Yes Interval History Identifying Information ALINA STONE is a 58-year-old F who currently lives in [facility], has her own home but presently staying with a friend, who has a history of Bipolar disorder and was admitted on 10/06/18 00:28 on a 201 voluntary status for psychotic depression and suicidality. Her symptoms worsened and progressed to catatonia, and she was placed on a 302 involuntary commitment on 10/16/2018 due to unresponsiveness and inability to participate in or consent to treatment. Chief Complaint "Good, really good". Review of Systems Notes Urinary incontinence as above, joint pain due to arthritis. 10 systems reviewed, negative except as stated Sleep Information Total Hours of Sleep: 5.5 Sleep Comments: Patient slept 5 hours on 05-21. awoke at 0100 due to incontinence. Seroquel given at 0235. Displaying irrational thinking. Meal Information Percent Meal Consumed - Breakfast: 0 Percent Meal Consumed - Lunch: 0 Percent Meal Consumed - Dinner: 100 Nutrition Comment: boost with lunch Subjective Subjective Patient was seen & assessed and interval progress reviewed with Treatment Team. Staff report she was placed on a 302 involuntary commitment yesterday, after 2 days of refusing medications, not responding to staff attempts to speak with her, and decreased oral intake. She responded positively to an Ativan challenge, and has improved significantly since yesterday morning, has been up and out of bed, ambulating independently, and eating and drinking more independently. She willingly accepted medications, and had a good visit with her son last evening. She continues to have frequent episodes of urinary incontinence. She requested and received quetiapine this morning, stating she needed "something to control my thoughts." She reported fearfulness and irrational thoughts, which improved after taking medication. On my assessment, the patient reports feeling much better, and states "my love of life is coming back." She reports decreased anxiety, and improved mood and sleep. She is able to walk to the interview room unassisted, and answer questions appropriately. Her thinking is more positive, and appetite is improving. She is no longer perseverating on her impending or believes that she is already , and states "I feel like I've been given a second chance." She denies suicidal thoughts, and feels safe in the hospital. She wants to start working on her discharge plans, stating she hopes to return home at discharge (owns her home), and prepare to sell it as she doesn't think she has the finances to maintain it. She thinks she will be foreclosed on in a couple months due to financial constraints, and wants to work with her outpatient gearcase assembler to find less expensive housing. She reports long standing urinary incontinence, for which she has seen multiple urologists ([facility] and [facility]). She can't recall what they told her, why they thought it was happening, or what treatment they recommended, other than "they didn't seem too concerned." She currently follows with her PCP for this. Physical Exam Psychiatric Orientation: alert, oriented x 3 and cooperative Apperance: appropriately dressed and appropriately groomed; + did not appear stated age Very thin, cachectic female appearing much older than her stated age Eye Contact: good eye contact Motor Behavior: steady gait and station and + tremor Speech: normal rate/rhythm/volume of speech Affect: + blunted affect (but brighter than previously, and smiles appropriately) "much better" Thought Process: goal directed thought process Thought Content: reality based without delusions Suicidal Thoughts: denies suicidal thoughts Although still reports fears she might soon, no longer perseverating on this Homicidal Thoughts: denies homicidal thoughts Hallucinations: no auditory hallucinations and no visual hallucinations Cognition: attention grossly intact and language grossly intact Insight: + fair insight Judgement: + fair judgement Vital Signs (Past 24 Hours) Last Vital Signs Temp 36.5 C 10/17/18 06:33 Pulse 112 H 10/17/18 06:34 Resp 18 10/17/18 06:33 BP 151/101 H 10/17/18 06:34 Pulse Ox 98 10/06/18 01:41 See physical exam by Dr. East in the ER 10/05/18 which has been reviewed and accepted for purposes of this H&P Results & Data Current Inpatient Medications Current Inpatient Medications: Current Inpatient Medications Acetaminophen (Tylenol) 650 mg PO Q4H PRN PRN Reason: Headache or Minor Fever Stop: 11/05/18 01:21 Al Hydrox/Mg Hydrox/Simethicone (Maalox) 30 ml PO Q4H PRN PRN Reason: GI Upset Stop: 11/05/18 01:21 Atorvastatin Calcium (Lipitor) 20 mg PO [facility] Stop: 11/05/18 08:59 Last Admin: 10/17/18 07:51 Dose: 20 mg Documented by: Bismuth Subsalicylate (Kaopectate) 15 ml PO PRN PRN PRN Reason: Loose Stool Stop: 11/05/18 01:21 Haloperidol (Haldol) 2.5 mg PO Q4H PRN PRN Reason: psychosis Stop: 11/14/18 15:22 Hydroxyzine HCl (Vistaril) 25 mg PO Q4H PRN PRN Reason: Anxiety Stop: 11/05/18 01:21 Last Admin: 10/12/18 10:04 Dose: 25 mg Documented by: Lamotrigine (Lamictal) 25 mg PO [facility] Stop: 11/07/18 09:29 Last Admin: 10/17/18 07:51 Dose: 25 mg Documented by: Lorazepam (Ativan) 2 mg IM TID PRN PRN Reason: catatonia Stop: 11/16/18 07:54 Lorazepam (Ativan) 2 mg PO TID [facility] Stop: 11/16/18 08:59 Last Admin: 10/17/18 09:27 Dose: 2 mg Documented by: Magnesium Hydroxide (Milk Of Magnesia) 30 ml PO DAILY PRN PRN Reason: Heartburn Stop: 11/05/18 01:21 Last Admin: 10/09/18 15:32 Dose: 30 ml Documented by: Mirtazapine (Remeron) 15 mg PO HS [facility] Stop: 11/09/18 21:59 Last Admin: 10/16/18 17:51 Dose: 15 mg Documented by: Morphine Sulfate (Morphine Sulfate Ir) 15 mg PO Q6 PRN PRN Reason: Pain Stop: 10/20/18 01:29 Last Admin: 10/17/18 01:20 Dose: 15 mg Documented by: Morphine Sulfate (Ms Contin) 15 mg PO HS [facility] Stop: 10/31/18 21:59 Multivitamins (Multivitamin Tab) 1 tab PO QAM SHUN Stop: 11/05/18 08:59 Last Admin: 10/17/18 07:51 Dose: 1 tab Documented by: Nicotine (Nicoderm Cq) 21 mg TD QAM [facility] Stop: 11/05/18 08:59 Last Admin: 10/17/18 07:58 Dose: 21 mg Documented by: Nicotine Polacrilex (Nicorette 2mg) 1 piece MT UD PRN PRN Reason: Nicotine Withdrawal Stop: 11/05/18 01:21 Quetiapine Fumarate (Seroquel) 200 mg PO HS SHUN Stop: 11/07/18 21:59 Last Admin: 10/16/18 17:50 Dose: 200 mg Documented by: Quetiapine Fumarate (Seroquel) 50 mg PO HS PRN PRN Reason: Insomnia Stop: 11/07/18 21:59 Last Admin: 10/17/18 02:35 Dose: 50 mg Documented by: Quetiapine Fumarate (Seroquel) 25 mg PO Q4H PRN PRN Reason: anxiety/agitation Stop: 11/08/18 11:44 Last Admin: 10/17/18 06:55 Dose: 25 mg Documented by: Quetiapine Fumarate (Seroquel) 50 mg PO BID@0900,1400 [facility] Stop: 11/10/18 08:59 Last Admin: 10/17/18 07:52 Dose: 50 mg Documented by: Sodium Chloride ([place] Nasal) 1 - 2 sprays NA PRN PRN PRN Reason: Nasal Dryness/Congestion Stop: 11/05/18 01:21 Trihexyphenidyl HCl (Artane) 2 mg PO BID [facility] Stop: 11/11/18 20:59 Last Admin: 10/17/18 07:51 Dose: 2 mg Documented by: Mental Health & Subst Abuse Tx Psychiatrist Name of Psychiatrist: Kim Mendoza - Dr. Borden Psychiatrist's Date of Appointment with Psychiatrist: 10/19/18 Time of Appointment with Psychiatrist: 9:50 am Psychiatric Appointment Comment: [address] - Next appointment - 10/24@11:30 Therapist Name of Therapist: Kim Mendoza - Manuel Weiner Therapist's Date of Therapist Appointment: 10/15/18 Time of Therapist Appointment: 3:00 p.m. Therapy Appointment Comment: [address] [place] Traffic Supervisor Name of Traffic Supervisor: None Post Discharge Appointments Primary Care Physician Name Of Family Doctor: Dr. Yovany Davis Primary Care Date of Appointment with PCP: 10/18/18 Time of Appointment with PCP: 9:50am Provider Appointment Comment: [address], [address], [place] Contact Information Discharge Discharge Address: [address] [place] [address] CPT Code CPT Code 30479 (1) Bipolar disorder Active/Remission status: currently active Current bipolar episode type: depressed Current episode severity: severe Psychotic features: with psychotic features Qualified Code(s): F31.5 - Bipolar disorder, current episode depressed, severe, with psychotic features
[2018-10-17] MEDS ORDERED: LORazepam 1 MG TAB PO STA (19:20)
[2018-10-17] MEDS: MIRTAZAPINE TAB 15 MG TAB PO SCH (21:12)
[2018-10-17] MEDS: QUETIAPINE FUMARATE 200 MG TAB PO SCH (21:12)
[2018-10-17] MEDS: MoRPHine SULFATE CR 15 MG TABCR PO SCH (21:13)
[2018-10-17] MEDS ORDERED: MoRPHine SULFATE CR 15 MG TABCR PO SCH (22:00)
[2018-10-18] MEDS: TRIHEXYPHENIDYL HCL 2 MG TAB PO SCH ×2 (08:47→21:06)
[2018-10-18] MEDS: lamoTRIgine 25 MG TAB PO SCH (08:48)
[2018-10-18] MEDS: MULTIVITAMIN TAB PO SCH (08:48)
[2018-10-18] MEDS: LORazepam 1 MG TAB PO SCH ×3 (08:48→21:06)
[2018-10-18] MEDS: ATORVASTATIN 20 MG TAB PO SCH (08:48)
[2018-10-18] MEDS: QUETIAPINE FUMARATE 25 MG TABLET PO SCH ×2 (08:48→15:14)
[2018-10-18] MEDS: NICOTINE 21 MG/24 HR TDSY TD SCH (08:48)
--- NOTE | 2018-10-18 09:20 | Psychiatric Progress Note ---
Date of Service October 18, 2018 Impression / Recommendations Impression 58y/o female with bipolar disorder who presented with depression, anxiety, and SI in the context of poor p.o. intake, low body weight with BMI of 15.4, and perseveration on delusions that she is going to at any moment, consistently stating she will not make it through the day. She had just been discharged from [facility] 5 days prior to admission, where she was treated for similar symptoms, but was noncompliant with medications after discharge, not believing she needed them. Multiple medication changes were made to address mood, anxiety, psychosis, and sleep: Initially Depakote was discontinued, olanzapine 10 mg at bedtime continued, and mirtazapine started; but due to concerns for akathisia, olanzapine was discontinued in favor of quetiapine, and lamotrigine was started for bipolar depression. Her mood, psychosis, and anxiety worsened, and she refused medications for several days, tried to leave the unit, was not eating or drinking and lost weight (BMI 15.1), was not able to participate in treatment or respond to staff, and ultimately had to be placed on a 302 involuntary commitment on 10/16/2018 given her inability to to give informed consent for treatment and the potential need to inject her with benzodiazepines to treat catatonia. She is improved with the addition of lorazepam, and is now better able to participate in treatment. Inpatient treatment remains medically necessary due to the severity of her symptoms, and ability to provide for her own basic needs without inpatient level of care, and risk for harm to herself if discharged. (1) Suicidal ideation: 10/06 and 10/07 - inpatient is least restrictive and most appropriate setting for care given multiple risk factors, passive SI, hopelessness, pain, poor sleep, restlessness. 10/08 -patient endorsing suicidal thoughts with a plan to starve herself, and reports that she has been restricting intake with unknown amount of weight loss. She is underweight with BMI 15.4. Continue to monitor p.o. intake and encourage good nutrition. 10/09 - Pt denies active SI, but continues to believe that she is "reaching the end" and that is imminent, which further contributes to her anxiety 10/11 -today patient is reporting to harm herself, and states that she would "probably" tried to end her life if she were not in the hospital. 10/12 - The patient reports today that she does not feel that it will be necessary for her to commit suicide because she is to be put to in the morning by lethal injection. 10/16 -patient is eating very little, not drinking, stating alternatively that she will at any moment or that she is already . 10/17- Mood, SI, and psychosis improving. (2) Bipolar disorder: 10/06 - She had been stable for many years on Zyprexa +/- Depakote and trazodone although occasional low moods often seasonally mediated and anxiety at times failing Cymbalta due to PANIAGUA's. Given this history I would like to keep her on a mood stabilizer but am concerned about hair loss and tremor and possible compounded cognitive impairment with Depakote so I held this, so will keep Zyprexa 10mg for now.stop Depakote, continue Zyprexa 10mg, start Remeron 15mg/hs 10/07 - stopped zyprexa to r/o akathisia (5mg tonight then off), returned to Seroquel (due to sedation stopped Remeron as well) 100mg tonight then 200mg thereafter with hope would stabilize, help depression and off label help sleep and anxiety, initial target dose if 200mg watching to assure not too fatigued as per last trial t 300mg when she had enuresis and daytime fatigue. She is now at lowered dose of morphine so fatigue and oversedation less likely Strongly consider Lamictal for mood stabilization, due to h/o break through depression on Seroquel in the noel, titration briefly discussed today but patient was too overwhelmed to consent. 10/08 -Continue quetiapine 200 mg at bedtime, and at 50 mg as needed dose for sleep. Reviewed the risks, benefits, and side effects of lamotrigine, which was also reviewed with her yesterday, including the risk of serious rash/SJS. She agreed to a trial, and will start 25 mg daily. -Order fasting labs for monitoring on an atypical antipsychotic. 10/09 - Planning to initiate quetiapine 25mg BID at 0900 and 1400; will order 25mg q4h prn for anxiety/disorganized thoughts. Will continue quetiapine 200mg at bedtime with 50mg additional dose as needed for sleep. - Will attempt to get fasting labs tomorrow morning, as patient had eaten overnight and the blood test could not be completed today - Continue lamotrigine 25mg daily 10/10 - Will titrate daytime doses of quetiapine to 50mg BID with continued 200mg/50mg bedtime dosing - Continue lamotrigine 25mg daily - Will restart mirtazapine at 15mg as patient continues to experience insomnia, receiving only 1.75 hours of sleep last evening 10/11 -Continue current medications; quetiapine just increased yesterday with scheduled dosing throughout the day as well as as needed dose; continue to titrate to effective dose. Sleep improved with resumption of mirtazapine. 10/13 hopefully can titrate Seroquel tomorrow. 10/14--doesn't appear that benefiting much from Seroquel, hesitant to titrate given sedation, tremor and gait. Appetite remains poor. Refused meds this am. Was losing weight on Zyprexa. Trial of a typical agent (haldol) may be appropriate, will defer to primary team. will note that if patient continues to refuse PO medications, she should receive meds over objection as or serious injury to self would come from psychotic disorder resulting in poor PO and she will not improve without such medication. Refusal of meds and level of psychosis would be indication for involuntary commitment. 10/15--patient refusing medications and not answering questions today. She did converse with the social research assistant and was able to eat, but was uncooperative with my attempt to interview her. She has not received quetiapine in 2 days. I will order haloperidol as needed, and consider a 302 involuntary commitment and medications over objection if she does not improve in the next 24 hours. -Patient appears more altered today. She has not had labs since 10/05/2018, so will order a CMP, CBC, and UA to rule out electrolyte abnormalities, UTI, and look for signs of infection or other medical issues that could contribute to deteriorating mental status/delirium. -Consider EEG. 10/16--patient refusing medications for the third day in a row, not eating very much, refusing to drink, and attempted to leave the unit last night. She is refusing all groups, and will not engage or talk with staff. She continues to state that she believes she is , or will at any moment. She has been in her bed most of the time, and does not respond to questions or commands. CBC, CMP, and UA were checked yesterday and were notable for elevated WBC 11.78, hemoglobin 17.2, hematocrit 47.2, elevated MCH and MCV HC. Total bilirubin was elevated at 1.1, and remainder of CMP was normal. UA showed 1+ ketones. Vital signs were normal this morning. Lab results do not indicate any active medical conditions contributing to her altered mental status and decreased responsiveness. Ketonuria does indicate starvation, and if she is already underweight with a BMI of 15.1, she is at risk if she continues to refuse to eat. Current symptoms are consistent with catatonia and I would like to do a lorazepam challenge; 1 mg p.o. stat was ordered, but the patient is refusing to take oral medications. We will need to use IM Lorazepam. As she is severely depressed, psychotic, catatonic, unable to appreciate the risks and benefits of treatment, and is refusing potentially life-saving treatment including medications, fluids, and food, we will proceed with a 302 involuntary commitment. 10/17--catatonia significantly improved, we will schedule Lorazepam 2 mg 3 times daily and taper as tolerated. --Continue lamotrigine, quetiapine, mirtazapine, and trihexyphenidyl as ordered, which she is now taking willingly. --Encourage group attendance and participation. Work on addressing stressors, including financial concerns, housing, and supports. Scheduled family meeting with son. --Work on discharge planning. 10/18 - Pt condition mildly worse today; however, still improved overall since admission - Due to concerns for sedation, lorazepam was reduced to 1mg TID - Continue lamotrigine, quetiapine, mirtazapine, and trihexyphenidyl as above - Son stopped in for family meeting later this morning (3) Akathisia: 10/06/18 - possibly neuroleptic induced, worsened by anxiety. Working theory is lowered dose of morphine uncovered akathisia caused by Zyprexa need to gather more history to consider need for AAP vs. mood stabilizer or both and prior response to other meds, would like to avoid anticholinergics given cognitive concerns 10/07/18 - she is having insomnia, needs mood stabilization and antidepressant, she did have some fatigue on 300mg but now on lowered dose of morphine. There were possibly two instances of enuresis but 200mg consistently was never tested over longer term for treatment, and given akathisia do not wish to use Clozaril and other AAP ongoing likelihood of akathisia so will retrial Seroquel titration to 200mg watching energy, and monitoring for nighttime urination. Patient affirms understanding history and current situation reviewed and she agrees with this plan as it supports multiple symptoms and leads to reduction of polypharmacy. 10/09 - Unclear if tremor and restlessness is true akathisia or related to anxiety - as it is not constant and appears to be worse when anxiety is highest - Continue to observe, but will refrain from treating with additional medi cation at this time - No evidence of cogwheeling or dystonia on physical exam 10/13 --EPS resolved with Artane 10/12 -Cogwheeling is present today on physical examination. The patient was given diphenhydramine 25 mg IM and is being observed. Her symptoms do appear to be consistent with akathisia, although they do appear to wax and wane. 10/16 -although cogwheeling and tremulousness continue, we are avoiding deliriogenic medications given her worsening mental status. 10/17--resume trihexyphenidyl 2 mg twice daily. (4) Cognitive disorder: 10/06/18 - I am concerned about her cognition as her overall MMSE-like assessment was near normal outside of a few points, but her CLOX was notably poor indicating poor executive function concerns. Again I will need to review PCM's records to see what labs and studies have been done to r/u reversible causes of cognitive decline. TSH WNL, LFTs WNL. Furthermore morphine and zyprexa and residual VPA can contribute to poor cognition. Will add MVI for now to support. 10/07 - review of remainder of labs from Dr Davis cited in 10/07 note B12, cbc, CMP vit D all WNL, could be h/o alcohol, polypharmacy with narcotic and AAP, and VPA although the latter has been stopped. There are no focal findings on exam. CLOX I indicates frontal lobe/executive issues but no other obvious release signs or personality changes or overt disinhibition. Recommend referral to neuropsych testing at [facility] after discharge for further characterization of her deficits as they may be pseudo dementia of depression or medications or both. 10/12 -Cognitive testing currently is not possible, due to the degree of the patient's thought disorganization and psychotic thinking. (5) Anxiety: 10/06/18 - remeron off label, zyprexa off label 10/07/18 - off remeron onto seroquel may have some off label help for sleep and anxiety, supportive therapy on milieu as patient works through some roots of anxiety in divulging her medication diversion 10/09 - Quetiapine 25mg BID at 0900 and 1400 - with prn doses available q4h prn - Continue supportive therapy and engage patient in groups and active coping strategies as able 10/10 - Titrating daytime doses of quetiapine to 50mg BID, continue prn dosing if necessary - Will restart mirtazapine at 15mg this evening to target insomnia and persistent ruminations regarding health and feelings of guilt - If restart of mirtazapine is over-sedating, can consider reducing dose to 7.5mg qHS 10/12 -The patient's underlying anxiety may be exacerbated seizure. She describes a restless, "jumpy" feeling much of the time. She also notes that it is sometimes difficult for her to swallow and her muscles feel "stiff." On examination, today, there is cogwheel rigidity. (6) Chronic pain: 10/06/18 - continue home dose of morphine (if Remeron not effective for mood consider SNRI desvenlafaxine with caution) 10/07/18 - patient admits to real pain but taking her morphine less than prescribed for many years and up until recently diverting the rest for money, she states she has recently changed this practice but is concerned about how to tell her doctors and the emerging financial strain now that she is no longer diverting her medications. This is a major source of her anxiety, possibly contributing to depression and weight loss as well. - request the weekday team help her to tell her PCM and psychiatrist, and then to work out possible relationship with pain clinic for [place] or related opiate agonist/antagonist so that her pain can be treated and not diverted if possible. 10/08 -Patient too distraught, psychotic, and disorganized today to address this. 10/09 - Continues to verbalize pain; states it is manageable 10/11 -Patient endorses guilt at times related to selling her prescribed morphine, and this has not yet been addressed with her PCP, who is out of the office until next week. The patient remains to distraught and psychotic to process this, so will revisit it next week. 10/16 -Patient has refused morphine the last 2 days. If she resumes it at some point, may want to use a lower dose to avoid oversedation. 10/17 -Lower morphine dose to 15 mg at bedtime, and continue 15 mg as needed dose, as patient is now receiving scheduled lorazepam for catatonia, and want to avoid [employer] depression and oversedation. -Called Dr. Davis to review morphine misuse and his recs re: ongoing morphine/pain management. Spoke with his nurse, reviewed course of treatment thus far, and gave contact information for him to call if he has any further treatment recommendations. 10/18 - Dr. Davis returned phone call regarding the above concerns - he is agreeable with reduction of HS morphine to 15mg; he reports desire for a pain management referral for ongoing management - As patient has not consistently been utilizing prn Morphine IR, it was suggested the prn be held and replaced with acetaminophen 1,000mg up to 4x daily for pain - He suggested option of Icy Hot or Salonpas for more mild pain to avoid centrally acting medications if not necessary for severity of reported pain - we will see what is formulary - He was informed that patient has reported selling her morphine and is willing to rebuild therapeutic rapport with the patient after she is discharged Inventory Assets Strengths: voluntary, good rapport with outpatient MD Needs: support, further medical record reveiw and outpatient f/u Risk Factors Assessment Male: No : Yes Do You Have Access To A Gun?: No Health Problems: Yes Mental Health Diagnoses: Yes Substance Use Disorders: No Previous Attempt: No Family History of Suicide: No Previous Psychiatric Hospitalization: Yes Hopelessness: Yes Smoker: Yes Protective Factors Assessment Shinto Beliefs: Yes : No Employed: No (Disability for back pain from [employer]) Good Rapport with Provider: Yes Interval History Identifying Information ALINA STONE is a 58-year-old F who currently lives in [facility], has her own home but presently staying with a friend, who has a history of Bipolar disorder and was admitted on 10/06/18 00:28 on a 201 voluntary status for psychotic depression and suicidality. Her symptoms worsened and progressed to catatonia, and she was placed on a 302 involuntary commitment on 10/16/2018 due to unresponsiveness and inability to participate in or consent to treatment. Chief Complaint "I need to talk with you, I have shortness of breath. My heart stopped working and I don't have a pulse." Review of Systems Notes Constitutional: reports restlessness and cramping in legs Cardiovascular: states, "my heart stopped and I don't have a pulse" Respiratory: reports "shortness of breath" Gastrointestinal: denied Genitourinary: ongoing urinary frequency/urgency Neurological: denied Psychiatric: denies symptoms other than stated above Total of at least 10 systems reviewed, pertinent positives as above and in HPI. Sleep Information Total Hours of Sleep: 7.5 Sleep Comments: Patient slept 5 hours on 05-21. awoke at 0100 due to incontinence. Seroquel given at 0235. Displaying irrational thinking. Meal Information Percent Meal Consumed - Breakfast: 100 Percent Meal Consumed - Lunch: 50 Percent Meal Consumed - Dinner: 100 Nutrition Comment: boost with lunch Subjective Subjective Patient was seen & assessed and interval progress reviewed with nursing and social work. Staff report the patient continues to show improvements. There was concern from nursing regarding excessive sedation with Ativan challenge used to treat catatonia. Patient received 1 mg last evening as opposed to scheduled 2 mg dose. Patient continues to have episodes of incontinence, urinary urgency/frequency is reportedly long-standing. Patient was seen today to assess progress since admission. Patient presented to nurses station with specific concerns, there was agreeable to meeting with this provider. Patient states "I need to talk to you, I have shortness of breath. My heart stopped working and I do not have a pulse." Patient was softly challenged on these thoughts, with reassurance from this provider that she would not be able to speak with me if this truly was the case. Patient is appearing less restless and uncomfortable, but does have episodes of returning to verbalizing her belief that she is either dying or is already . Patient participated in conversation regarding positive and negative thinking, and engaged in exercise with this provider of identifying negative thoughts and replacing them with positive ones for the remainder of our conversation. During one episode in which patient reported believing she was , she states "I believe in reincarnation, I believe at one point that I was ." Patient then goes on to state that she believes that people were taking pictures of her while she was , and that the police were involved in the situation. Patient was reminded that there were several days in which she was not doing well, and this provider questioned if this may have been her mind playing tricks on her during that time. Patient states "I really do believe that this happened." Patient states "I do really have morbid thoughts you know." When asked to explain this further she reports anxiety surrounding concerns for her own health and worries about the welfare of her son. Patient then inquires "by not giving up, and my holding everyone else up in the building?" Patient was asked what she meant by this comment, and responded with a disorganized statement regarding the function of the sprinkler system in the hospital. Patient is agreeable to continuing to work with providers and staff to ensure her thoughts are clear. She denies other specific needs or concerns today. Physical Exam Psychiatric Orientation: alert, oriented x 3 and cooperative Apperance: appropriately dressed and appropriately groomed; + did not appear stated age (Appears older than stated age) Appearing cachectic Eye Contact: good eye contact Motor Behavior: steady gait and station Speech: normal rate/rhythm/volume of speech Affect: + anxious affect and + blunted affect Mood: + anxious mood ("I am worried. I think this is the end.") Thought Process: + looseness of associations and + perseveration (Height and focus on this being "the end"); + thought process not linear or logical At one point reference is "holding people up" in this, and somehow being related to the function of the sprinkler system in the hospital Thought Content: + preoccupation (With her life depending, though less severe) and + delusions Patient verbalized belief that someone had come on the unit and taken photos of her, stating that the police were involved. Follows this up by saying "I truly believe that this happened." Suicidal Thoughts: denies suicidal thoughts and denies suicidal intent Homicidal Thoughts: denies homicidal thoughts Hallucinations: no auditory hallucinations and no visual hallucinations Cognition: attention grossly intact and language grossly intact Estimated Intelligence: consistent with education level Insight: + impaired insight Judgement: + fair judgement Vital Signs (Past 24 Hours) Last Vital Signs Temp 36.5 C 10/18/18 06:00 Pulse 74 10/18/18 06:42 Resp 15 10/18/18 06:00 BP 105/71 10/18/18 06:42 Pulse Ox 98 10/06/18 01:41 Results & Data Current Inpatient Medications Current Inpatient Medications: Current Inpatient Medications Acetaminophen (Tylenol) 650 mg PO Q4H PRN PRN Reason: Headache or Minor Fever Stop: 11/05/18 01:21 Al Hydrox/Mg Hydrox/Simethicone (Maalox) 30 ml PO Q4H PRN PRN Reason: GI Upset Stop: 11/05/18 01:21 Atorvastatin Calcium [facility]) [facility] Stop: 11/05/18 08:59 Last Admin: 10/18/18 08:48 Dose: 20 mg Documented by: Bismuth Subsalicylate (Kaopectate) 15 ml PO PRN PRN PRN Reason: Loose Stool Stop: 11/05/18 01:21 Haloperidol (Haldol) 2.5 mg PO Q4H PRN PRN Reason: psychosis Stop: 11/14/18 15:22 Hydroxyzine HCl (Vistaril) 25 mg PO Q4H PRN PRN Reason: Anxiety Stop: 11/05/18 01:21 Last Admin: 10/12/18 10:04 Dose: 25 mg Documented by: Lamotrigine (Lamictal) 25 mg PO QAM [facility] Stop: 11/07/18 09:29 Last Admin: 10/18/18 08:48 Dose: 25 mg Documented by: Lorazepam (Ativan) 2 mg IM TID PRN PRN Reason: catatonia Stop: 11/16/18 07:54 Lorazepam (Ativan) 1 mg PO TID [facility] Stop: 11/17/18 08:59 Last Admin: 10/18/18 08:48 Dose: 1 mg Documented by: Magnesium Hydroxide (Milk Of Magnesia) 30 ml PO DAILY PRN PRN Reason: Heartburn Stop: 11/05/18 01:21 Last Admin: 10/09/18 15:32 Dose: 30 ml Documented by: Mirtazapine (Remeron) 15 mg PO HS [facility] Stop: 11/09/18 21:59 Last Admin: 10/17/18 21:12 Dose: 15 mg Documented by: Morphine Sulfate (Morphine Sulfate Ir) 15 mg PO Q6 PRN PRN Reason: Pain Stop: 10/20/18 01:29 Last Admin: 10/17/18 01:20 Dose: 15 mg Documented by: Morphine Sulfate (Ms Contin) 15 mg PO HS [facility] Stop: 10/31/18 21:59 Last Admin: 10/17/18 21:13 Dose: 15 mg Documented by: Multivitamins (Multivitamin Tab) 1 tab PO QAM [facility] Stop: 11/05/18 08:59 Last Admin: 10/18/18 08:48 Dose: 1 tab Documented by: Nicotine (Nicoderm Cq) 21 mg TD QAM [facility] Stop: 11/05/18 08:59 Last Admin: 10/18/18 08:48 Dose: 21 mg Documented by: Nicotine Polacrilex (Nicorette 2mg) 1 piece MT UD PRN PRN Reason: Nicotine Withdrawal Stop: 11/05/18 01:21 Quetiapine Fumarate (Seroquel) 200 mg PO HS [facility] Stop: 11/07/18 21:59 Last Admin: 10/17/18 21:12 Dose: 200 mg Documented by: Quetiapine Fumarate (Seroquel) 50 mg PO HS PRN PRN Reason: Insomnia Stop: 11/07/18 21:59 Last Admin: 10/17/18 02:35 Dose: 50 mg Documented by: Quetiapine Fumarate (Seroquel) 25 mg PO Q4H PRN PRN Reason: anxiety/agitation Stop: 11/08/18 11:44 Last Admin: 10/17/18 06:55 Dose: 25 mg Documented by: Quetiapine Fumarate (Seroquel) 50 mg PO BID@0900,1400 [facility] Stop: 11/10/18 08:59 Last Admin: 10/18/18 08:48 Dose: 50 mg Documented by: Sodium Chloride ([place] Nasal) 1 - 2 sprays NA PRN PRN PRN Reason: Nasal Dryness/Congestion Stop: 11/05/18 01:21 Trihexyphenidyl HCl (Artane) 2 mg PO BID [facility] Stop: 11/11/18 20:59 Last Admin: 10/18/18 08:47 Dose: 2 mg Documented by: Mental Health & Subst Abuse Tx Psychiatrist Name of Psychiatrist: [facility] - Dr. Borden Psychiatrist's Date of Appointment with Psychiatrist: 10/24/18 Time of Appointment with Psychiatrist: 11:30 a.m. Psychiatric Appointment Comment: [address], [place], [place] Therapist [facility] The[facility]'s Date of Therapist Appointment: 10/15/18 Time of Therapist Appointment: 3:00 p.m. Therapy Appointment Comment: [address] [place] Event Att[place] Name of Event Attendant: None Post Discharge Appointments Primary Care Physician Name Of Family Doctor: [facility] - Dr. Yovany Davis Primary Care Date of Appointment with PCP: 11/05/18 Time of Appointment with PCP: 8:30 a.m. Provider Appointment Comment: [address], [address], [place] Other #1: Name of Aftercare Appointment: [facility] Event Attendant - Margi Santana Phone Number of Aftercare Appointment: [phone] Aftercare Appointment Comment: A resource from your insurance company. No obligation or cost to utilize. Contact Information Discharge Discharge Address: [address] [place] [address] CPT Code CPT Code 33695 (1) Bipolar disorder Active/Remission status: currently active Current bipolar episode type: depressed Current episode severity: severe Psychotic features: with psychotic features Qualified Code(s): F31.5 - Bipolar disorder, current episode depressed, severe, with psychotic features
[2018-10-18] MEDS: QUETIAPINE FUMARATE 25 MG TABLET PO PRN (10:11)
[2018-10-18] MEDS ORDERED: ACETAMINOPHEN 325 MG TAB PO PRN (12:05)
[2018-10-18] MEDS: ACETAMINOPHEN 500 MG TAB PO PRN (18:50)
[2018-10-18] MEDS: MoRPHine SULFATE CR 15 MG TABCR PO SCH (21:07)
[2018-10-18] MEDS: MIRTAZAPINE TAB 15 MG TAB PO SCH (21:07)
[2018-10-18] MEDS: QUETIAPINE FUMARATE 200 MG TAB PO SCH (21:07)
[2018-10-19] MEDS: MULTIVITAMIN TAB PO SCH (07:36)
[2018-10-19] MEDS: TRIHEXYPHENIDYL HCL 2 MG TAB PO SCH ×2 (07:36→21:55)
[2018-10-19] MEDS: ATORVASTATIN 20 MG TAB PO SCH (07:36)
[2018-10-19] MEDS: QUETIAPINE FUMARATE 25 MG TABLET PO SCH ×3 (07:36→21:55)
[2018-10-19] MEDS: lamoTRIgine 25 MG TAB PO SCH (07:36)
[2018-10-19] MEDS: NICOTINE 21 MG/24 HR TDSY TD SCH (07:37)
[2018-10-19] MEDS: LORazepam 1 MG TAB PO SCH ×3 (07:38→21:55)
--- NOTE | 2018-10-19 09:36 | Psychiatric Progress Note ---
Date of Service October 19, 2018 Impression / Recommendations Impression 58y/o female with bipolar disorder who presented with depression, anxiety, and SI in the context of poor p.o. intake, low body weight with BMI of 15.4, and perseveration on delusions that she is going to at any moment, consistently stating she will not make it through the day. She had just been discharged from [facility] 5 days prior to admission, where she was treated for similar symptoms, but was noncompliant with medications after discharge, not believing she needed them. Multiple medication changes were made to address mood, anxiety, psychosis, and sleep: Initially Depakote was discontinued, olanzapine 10 mg at bedtime continued, and mirtazapine started; but due to concerns for akathisia, olanzapine was discontinued in favor of quetiapine, and lamotrigine was started for bipolar depression. Her mood, psychosis, and anxiety worsened, and she refused medications for several days, tried to leave the unit, was not eating or drinking and lost weight (BMI 15.1), was not able to participate in treatment or respond to staff, and ultimately had to be placed on a 302 involuntary commitment on 10/16/2018 given her inability to to give informed consent for treatment and the potential need to inject her with benzodiazepines to treat catatonia. She is improved with the addition of lorazepam, and is now better able to participate in treatment. Inpatient treatment remains medically necessary due to the severity of her symptoms, and ability to provide for her own basic needs without inpatient level of care, and risk for harm to herself if discharged. (1) Suicidal ideation: 10/06 and 10/07 - inpatient is least restrictive and most appropriate setting for care given multiple risk factors, passive SI, hopelessness, pain, poor sleep, restlessness. 10/08 -patient endorsing suicidal thoughts with a plan to starve herself, and reports that she has been restricting intake with unknown amount of weight loss. She is underweight with BMI 15.4. Continue to monitor p.o. intake and encourage good nutrition. 10/09 - Pt denies active SI, but continues to believe that she is "reaching the end" and that is imminent, which further contributes to her anxiety 10/11 -today patient is reporting to harm herself, and states that she would "probably" tried to end her life if she were not in the hospital. 10/12 - The patient reports today that she does not feel that it will be necessary for her to commit suicide because she is to be put to in the morning by lethal injection. 10/16 -patient is eating very little, not drinking, stating alternatively that she will at any moment or that she is already . 10/17- Mood, SI, and psychosis improving. (2) Bipolar disorder: 10/06 - She had been stable for many years on Zyprexa +/- Depakote and trazodone although occasional low moods often seasonally mediated and anxiety at times failing Cymbalta due to PANIAGUA's. Given this history I would like to keep her on a mood stabilizer but am concerned about hair loss and tremor and possible compounded cognitive impairment with Depakote so I held this, so will keep Zyprexa 10mg for now.stop Depakote, continue Zyprexa 10mg, start Remeron 15mg/hs 10/07 - stopped zyprexa to r/o akathisia (5mg tonight then off), returned to Seroquel (due to sedation stopped Remeron as well) 100mg tonight then 200mg thereafter with hope would stabilize, help depression and off label help sleep and anxiety, initial target dose if 200mg watching to assure not too fatigued as per last trial t 300mg when she had enuresis and daytime fatigue. She is now at lowered dose of morphine so fatigue and oversedation less likely Strongly consider Lamictal for mood stabilization, due to h/o break through depression on Seroquel in the noel, titration briefly discussed today but patient was too overwhelmed to consent. 10/08 -Continue quetiapine 200 mg at bedtime, and at 50 mg as needed dose for sleep. Reviewed the risks, benefits, and side effects of lamotrigine, which was also reviewed with her yesterday, including the risk of serious rash/SJS. She agreed to a trial, and will start 25 mg daily. -Order fasting labs for monitoring on an atypical antipsychotic. 10/09 - Planning to initiate quetiapine 25mg BID at 0900 and 1400; will order 25mg q4h prn for anxiety/disorganized thoughts. Will continue quetiapine 200mg at bedtime with 50mg additional dose as needed for sleep. - Will attempt to get fasting labs tomorrow morning, as patient had eaten overnight and the blood test could not be completed today - Continue lamotrigine 25mg daily 10/10 - Will titrate daytime doses of quetiapine to 50mg BID with continued 200mg/50mg bedtime dosing - Continue lamotrigine 25mg daily - Will restart mirtazapine at 15mg as patient continues to experience insomnia, receiving only 1.75 hours of sleep last evening 10/11 -Continue current medications; quetiapine just increased yesterday with scheduled dosing throughout the day as well as as needed dose; continue to titrate to effective dose. Sleep improved with resumption of mirtazapine. 10/13 hopefully can titrate Seroquel tomorrow. 10/14--doesn't appear that benefiting much from Seroquel, hesitant to titrate given sedation, tremor and gait. Appetite remains poor. Refused meds this am. Was losing weight on Zyprexa. Trial of a typical agent (haldol) may be appropriate, will defer to primary team. will note that if patient continues to refuse PO medications, she should receive meds over objection as or serious injury to self would come from psychotic disorder resulting in poor PO and she will not improve without such medication. Refusal of meds and level of psychosis would be indication for involuntary commitment. 10/15--patient refusing medications and not answering questions today. She did converse with the high school social studies teacher and was able to eat, but was uncooperative with my attempt to interview her. She has not received quetiapine in 2 days. I will order haloperidol as needed, and consider a 302 involuntary commitment and medications over objection if she does not improve in the next 24 hours. -Patient appears more altered today. She has not had labs since 10/05/2018, so will order a CMP, CBC, and UA to rule out electrolyte abnormalities, UTI, and look for signs of infection or other medical issues that could contribute to deteriorating mental status/delirium. -Consider EEG. 10/16--patient refusing medications for the third day in a row, not eating very much, refusing to drink, and attempted to leave the unit last night. She is refusing all groups, and will not engage or talk with staff. She continues to state that she believes she is , or will at any moment. She has been in her bed most of the time, and does not respond to questions or commands. CBC, CMP, and UA were checked yesterday and were notable for elevated WBC 11.78, hemoglobin 17.2, hematocrit 47.2, elevated MCH and MCV HC. Total bilirubin was elevated at 1.1, and remainder of CMP was normal. UA showed 1+ ketones. Vital signs were normal this morning. Lab results do not indicate any active medical conditions contributing to her altered mental status and decreased responsiveness. Ketonuria does indicate starvation, and if she is already underweight with a BMI of 15.1, she is at risk if she continues to refuse to eat. Current symptoms are consistent with catatonia and I would like to do a lorazepam challenge; 1 mg p.o. stat was ordered, but the patient is refusing to take oral medications. We will need to use IM Lorazepam. As she is severely depressed, psychotic, catatonic, unable to appreciate the risks and benefits of treatment, and is refusing potentially life-saving treatment including medications, fluids, and food, we will proceed with a 302 involuntary commitment. 10/17--catatonia significantly improved, we will schedule Lorazepam 2 mg 3 times daily and taper as tolerated. --Continue lamotrigine, quetiapine, mirtazapine, and trihexyphenidyl as ordered, which she is now taking willingly. --Encourage group attendance and participation. Work on addressing stressors, including financial concerns, housing, and supports. Scheduled family meeting with son. --Work on discharge planning. 10/18 - Pt condition mildly worse today; however, still improved overall since admission - Due to concerns for sedation, lorazepam was reduced to 1mg TID - Continue lamotrigine, quetiapine, mirtazapine, and trihexyphenidyl as above - Son stopped in for family meeting later this morning 10/19 - Titrate HS dose of quetiapine to 250mg; continue quetiapine 50mg BID - Continue lorazepam 1mg TID - Continue lamotrigine, mirtazapine, and trihexyphenidyl (3) Akathisia: 10/06/18 - possibly neuroleptic induced, worsened by anxiety. Working theory is lowered dose of morphine uncovered akathisia caused by Zyprexa need to gather more history to consider need for AAP vs. mood stabilizer or both and prior response to other meds, would like to avoid anticholinergics given cognitive concerns 10/07/18 - she is having insomnia, needs mood stabilization and antidepressant, she did have some fatigue on 300mg but now on lowered dose of morphine. There were possibly two instances of enuresis but 200mg consistently was never tested over longer term for treatment, and given akathisia do not wish to use Clozaril and other AAP ongoing likelihood of akathisia so will retrial Seroquel titration to 200mg watching energy, and monitoring for nighttime urination. Patient affirms understanding history and current situation reviewed and she agrees with this plan as it supports multiple symptoms and leads to reduction of polypharmacy. 10/09 - Unclear if tremor and restlessness is true akathisia or related to anxiety - as it is not constant and appears to be worse when anxiety is highest - Continue to observe, but will refrain from treating with additional medication at this time - No evidence of cogwheeling or dystonia on physical exam 10/13 --EPS resolved with Artane 10/12 -Cogwheeling is present today on physical examination. The patient was given diphenhydramine 25 mg IM and is being observed. Her symptoms do appear to be consistent with akathisia, although they do appear to wax and wane. 10/16 -although cogwheeling and tremulousness continue, we are avoiding deliriogenic medications given her worsening mental status. 10/17--resume trihexyphenidyl 2 mg twice daily. (4) Cognitive disorder: 10/06/18 - I am concerned about her cognition as her overall MMSE-like assessment was near normal outside of a few points, but her CLOX was notably poor indicating poor executive function concerns. Again I will need to review PCM's records to see what labs and studies have been done to r/u reversible causes of cognitive decline. TSH WNL, LFTs WNL. Furthermore morphine and zyprexa and residual VPA can contribute to poor cognition. Will add MVI for now to support. 10/07 - review of remainder of labs from Dr Davis cited in 10/07 note B12, cbc, CMP vit D all WNL, could be h/o alcohol, polypharmacy with narcotic and AAP, and VPA although the latter has been stopped. There are no focal findings on exam. CLOX I indicates frontal lobe/executive issues but no other obvious release signs or personality changes or overt disinhibition. Recommend referral to neuropsych testing at [facility] after discharge for further characterization of her deficits as they may be pseudo dementia of depression or medications or both. 10/12 -Cognitive testing currently is not possible, due to the degree of the patient's thought disorganization and psychotic thinking. (5) Anxiety: 10/06/18 - remeron off label, zyprexa off label 10/07/18 - off remeron onto seroquel may have some off label help for sleep and anxiety, supportive therapy on milieu as patient works through some roots of anxiety in divulging her medication diversion 10/09 - Quetiapine 25mg BID at 0900 and 1400 - with prn doses available q4h prn - Continue supportive therapy and engage patient in groups and active coping strategies as able 10/10 - Titrating daytime doses of quetiapine to 50mg BID, continue prn dosing if necessary - Will restart mirtazapine at 15mg this evening to target insomnia and persistent ruminations regarding health and feelings of guilt - If restart of mirtazapine is over-sedating, can consider reducing dose to 7.5mg qHS 10/12 -The patient's underlying anxiety may be exacerbated seizure. She describes a restless, "jumpy" feeling much of the time. She also notes that it is sometimes difficult for her to swallow and her muscles feel "stiff." On examination, today, there is cogwheel rigidity. 10/19 - Titrating quetiapine for mood stabiliation/ongoing delusions - off-label benefit for anxiety - Now 50mg qAM, 50mg in afternoon and 250mg qHS - Quetiapine 25mg remains available as needed (6) Chronic pain: 10/06/18 - continue home dose of morphine (if Remeron not effective for mood consider SNRI desvenlafaxine with caution) 10/07/18 - patient admits to real pain but taking her morphine less than prescribed for many years and up until recently diverting the rest for money, she states she has recently changed this practice but is concerned about how to tell her doctors and the emerging financial strain now that she is no longer diverting her medications. This is a major source of her anxiety, possibly contributing to depression and weight loss as well. - request the weekday team help her to tell her PCM and psychiatrist, and then to work out possible relationship with pain clinic for [place] or related opiate agonist/antagonist so that her pain can be treated and not diverted if possible. 10/08 -Patient too distraught, psychotic, and disorganized today to address this. 10/09 - Continues to verbalize pain; states it is manageable 10/11 -Patient endorses guilt at times related to selling her prescribed morphine, and this has not yet been addressed with her PCP, who is out of the office until next week. The patient remains to distraught and psychotic to process this, so will revisit it next week. 10/16 -Patient has refused morphine the last 2 days. If she resumes it at some point, may want to use a lower dose to avoid oversedation. 10/17 -Lower morphine dose to 15 mg at bedtime, and continue 15 mg as needed dose, as patient is now receiving scheduled lorazepam for catatonia, and want to avoid GEOMORPHOLOGY TEACHER depression and oversedation. -Called Dr. Davis to review morphine misuse and his recs re: ongoing morphine/pain management. Spoke with his nurse, reviewed course of treatment thus far, and gave contact information for him to call if he has any further treatment recommendations. 10/18 - Dr. Davis returned phone call regarding the above concerns - he is agreeable with reduction of HS morphine to 15mg; he reports desire for a pain management referral for ongoing management - As patient has not consistently been utilizing prn Morphine IR, it was suggested the prn be held and replaced with acetaminophen 1,000mg up to 4x daily for pain - He suggested option of Icy Hot or Salonpas for more mild pain to avoid centrally acting medications if not necessary for severity of reported pain - we will see what is formulary - He was informed that patient has reported selling her morphine and is willing to rebuild therapeutic rapport with the patient after she is discharged 10/19 - Called pain management clinic in regard to referral - if consultation during admission would be desired - It is reported PCP would need to make referral to pain management clinic Inventory Assets Strengths: voluntary, good rapport with outpatient MD Needs: support, further medical record reveiw and outpatient f/u Risk Factors Assessment Male: No : Yes Do You Have Access To A Gun?: No Health Problems: Yes Mental Health Diagnoses: Yes Substance Use Disorders: No Previous Attempt: No Family History of Suicide: No Previous Psychiatric Hospitalization: Yes Hopelessness: Yes Smoker: Yes Protective Factors Assessment Yarsanism Beliefs: Yes : No Employed: No (Disability for back pain from [employer]) Good Rapport with Provider: Yes Interval History Identifying Information ALINA STONE is a 58-year-old F who currently lives in [facility], has her own home but presently staying with a friend, who has a history of Bipolar disorder and was admitted on 10/06/18 00:28 on a 201 voluntary status for psychotic depression and suicidality. Her symptoms worsened and progressed to catatonia, and she was placed on a 302 involuntary commitment on 10/16/2018 due to unresponsiveness and inability to participate in or consent to treatment. Chief Complaint "Oh good. I needed to talk to you about a few things." Review of Systems Notes Constitutional: reports difficulty sleeping Cardiovascular: denied Respiratory: denied Gastrointestinal: denied Genitourinary: reports ongoing urinary frequency/urgency Neurological: denied Psychiatric: denies symptoms other than stated above Total of at least 10 systems reviewed, pertinent positives as above and in HPI. Sleep Information Total Hours of Sleep: 4.75 Sleep Comments: incontinent of urine at 2300-noted unsteady gait when in the day area-eyes mostly closed/sedated after hs meds. assisted to clean up and able to fall back to sleep quickly. incontinnt again at 0330 and assisted with cleaning herself up. ate snack at 0345 and has been awake since. gait more stable the more she woke up. Meal Information Percent Meal Consumed - Breakfast: 100 Percent Meal Consumed - Lunch: 90 Percent Meal Consumed - Dinner: 75 Nutrition Comment: boost with lunch Subjective Subjective Patient was seen & assessed and interval progress reviewed with treatment team. Staff reports the patient has continued to show improvements overall, but continues to episodically verbalize anxiety about feeling she is going to or is already . She has shown improvements in nutritional intake and hydration. Patient was seen today to assess progress since admission. Pt s tates she feels she is doing better, but states her sleep has been rather concerning to her. She states, "It's when I'm trying to sleep, I just get so worried about my son - that's when my breathing is shallow and I worry my heart is going to stop." Pt was able to state that her son had told her that her and her home are safe and she has nothing to worry about. She states, "I do feel a lot better, to I look bright eyed?" Pt states, "I've been hallucinating you know." She states prior to admission, she had been seeing "my little white dog running around." She reports ongoing "fleeting glimpses" of it here on the unit. Anxiety remains high. She denies acute needs or concerns at this time. Physical Exam Psychiatric Orientation: alert and oriented x 3 Apperance: appropriately dressed (casually in sweatshirt and jeans), appropriately groomed and appeared stated age Eye Contact: good eye contact Motor Behavior: steady gait and station (cautious but stable ambulation) and + tremor (improved and stable) Speech: normal rate/rhythm/volume of speech Affect: + anxious affect, + blunted affect and + constricted affect Mood: + anxious mood Thought Process: goal directed thought process, clear/coherent thought process and + concrete thought process Suicidal Thoughts: denies suicidal thoughts Homicidal Thoughts: denies homicidal thoughts Hallucinations: + visual hallucinations (just now reporting); no auditory hallucinations reports fleeting glimpses of "my little white puppy" while on the unit Cognition: attention grossly intact and language grossly intact Estimated Intelligence: consistent with education level Insight: + impaired insight Judgement: + impaired judgement Vital Signs (Past 24 Hours) Last Vital Signs Temp 36.4 C L 10/19/18 06:00 Pulse 89 10/19/18 06:51 Resp 17 10/19/18 06:00 BP 117/76 10/19/18 06:51 Pulse Ox 98 10/06/18 01:41 Results & Data Current Inpatient Medications Current Inpatient Medications: Current Inpatient Medications Acetaminophen (Tylenol) 1,000 mg PO Q6H PRN PRN Reason: Headache or Minor Fever Stop: 11/17/18 18:47 Last Admin: 10/18/18 18:50 Dose: 1,000 mg Documented by: Al Hydrox/Mg Hydrox/Simethicone (Maalox) 30 ml PO Q4H PRN PRN Reason: GI Upset Stop: 11/05/18 01:21 Atorvastatin Calcium (Lipitor) 20 mg PO QAM SHUN Stop: 11/05/18 08:59 Last Admin: 10/19/18 07:36 Dose: 20 mg Documented by: Bismuth Subsalicylate (Kaopectate) 15 ml PO PRN PRN PRN Reason: Loose Stool Stop: 11/05/18 01:21 Haloperidol (Haldol) 2.5 mg PO Q4H PRN PRN Reason: psychosis Stop: 11/14/18 15:22 Hydroxyzine HCl (Vistaril) 25 mg PO Q4H PRN PRN Reason: Anxiety Stop: 11/05/18 01:21 Last Admin: 10/12/18 10:04 Dose: 25 mg Documented by: [facility]) [facility] Stop: 11/07/18 09:29 Last Admin: 10/19/18 07:36 Dose: 25 mg Documented by: Lorazepam (Ativan) 2 mg IM TID PRN PRN Reason: catatonia Stop: 11/16/18 07:54 Lorazepam (Ativan) 1 mg PO TID [facility] Stop: 11/17/18 08:59 Last Admin: 10/19/18 07:38 Dose: 1 mg Documented by: Magnesium Hydroxide (Milk Of Magnesia) 30 ml PO DAILY PRN PRN Reason: Heartburn Stop: 11/05/18 01:21 Last Admin: 10/09/18 15:32 Dose: 30 ml Documented by: Mirtazapine (Remeron) 15 mg PO [facility] Stop: 11/09/18 21:59 Last Admin: 10/18/18 21:07 Dose: 15 mg Documented by: Morphine Sulfate (Ms Contin) 15 mg PO [facility] Stop: 10/31/18 21:59 Last Admin: 10/18/18 21:07 Dose: 15 mg Documented by: Multivitamins (Multivitamin Tab) 1 tab PO QAM [facility] Stop: 11/05/18 08:59 Last Admin: 10/19/18 07:36 Dose: 1 tab Documented by: Nicotine (Nicoderm Cq) 21 mg TD QAM [facility] Stop: 11/05/18 08:59 Last Admin: 10/19/18 07:37 Dose: 21 mg Documented by: Nicotine Polacrilex (Nicorette 2mg) 1 piece MT UD PRN PRN Reason: Nicotine Withdrawal Stop: 11/05/18 01:21 Quetiapine Fumarate (Seroquel) 200 mg PO HS SHUN Stop: 11/07/18 21:59 Last Admin: 10/18/18 21:07 Dose: 200 mg Documented by: Quetiapine Fumarate (Seroquel) 50 mg PO HS PRN PRN Reason: Insomnia Stop: 11/07/18 21:59 Last Admin: 10/17/18 02:35 Dose: 50 mg Documented by: Quetiapine Fumarate (Seroquel) 25 mg PO Q4H PRN PRN Reason: anxiety/agitation Stop: 11/08/18 11:44 Last Admin: 10/18/18 10:11 Dose: 25 mg Documented by: Quetiapine Fumarate (Seroquel) 50 mg PO BID@0900,1400 SHUN Stop: 11/10/18 08:59 Last Admin: 10/19/18 07:36 Dose: 50 mg Documented by: Sodium Chloride ([place] Nasal) 1 - 2 sprays NA PRN PRN PRN Reason: Nasal Dryness/Congestion Stop: 11/05/18 01:21 Trihexyphenidyl HCl (Artane) 2 mg PO BID SHUN Stop: 11/11/18 20:59 Last Admin: 10/19/18 07:36 Dose: 2 mg Documented by: Mental Health & Subst Abuse Tx Psychiatrist Name of Psychiatrist: [facility] Duncan Borden Psychiatrist's Date of Appointment with Psychiatrist: 10/24/18 Time of Appointment with Psychiatrist: 11:30 a.m. Psychiatric Appointment Comment: [address] [place], [place] Therapist Name of Therapist: [facility] Duncan Weiner Therapist's Date of Therapist Appointment: 10/15/18 Time of Therapist Appointment: 3:00 p.m. Therapy Appointment Comment: [address] [place], [place] Union Representative Name of Union Representative: None Post Discharge Appointments Primary Care Physician Name Of Family Doctor: [facility] - Dr. Yovany Davis Primary Care Date of Appointment with PCP: 11/05/18 Time of Appointment with PCP: 8:30 a.m. Provider Appointment Comment: [address], [address], [place] Other #1: Name of Aftercare Appointment: [facility] Union Representative - Margi Santana Phone Number of Aftercare Appointment: [phone] Aftercare Appointment Comment: A resource from your insurance company. No obligation or cost to utilize. Contact Information Discharge Discharge Address: [address] [place] [address] CPT Code CPT Code 56967 (1) Bipolar disorder Active/Remission status: currently active Current bipolar episode type: depressed Current episode severity: severe Psychotic features: with psychotic features Qualified Code(s): F31.5 - Bipolar disorder, current episode depressed, severe, with psychotic features
[2018-10-19] MEDS: QUETIAPINE FUMARATE 25 MG TABLET PO PRN (12:56)
[2018-10-19] MEDS: HALOPERIDOL 5 MG TAB PO PRN (15:46)
[2018-10-19] MEDS: ACETAMINOPHEN 500 MG TAB PO PRN (18:15)
[2018-10-19] MEDS: QUETIAPINE FUMARATE 200 MG TAB PO SCH (21:54)
[2018-10-19] MEDS: MoRPHine SULFATE CR 15 MG TABCR PO SCH (21:55)
[2018-10-19] MEDS: MIRTAZAPINE TAB 15 MG TAB PO SCH (21:55)
[2018-10-20] MEDS: TRIHEXYPHENIDYL HCL 2 MG TAB PO SCH ×2 (07:44→20:58)
[2018-10-20] MEDS: LORazepam 1 MG TAB PO SCH ×3 (07:44→20:58)
[2018-10-20] MEDS: lamoTRIgine 25 MG TAB PO SCH (07:44)
[2018-10-20] MEDS: QUETIAPINE FUMARATE 25 MG TABLET PO SCH ×3 (07:44→20:59)
[2018-10-20] MEDS: ATORVASTATIN 20 MG TAB PO SCH (07:44)
[2018-10-20] MEDS: MULTIVITAMIN TAB PO SCH (07:44)
[2018-10-20] MEDS: NICOTINE 21 MG/24 HR TDSY TD SCH ×2 (07:48→18:53)
--- NOTE | 2018-10-20 09:16 | Psychiatric Progress Note ---
Date of Service October 20, 2018 Impression / Recommendations Impression 58y/o female with bipolar disorder who presented with depression, anxiety, and SI in the context of poor p.o. intake, underweight with BMI of 15.4, and perseveration on delusions that she is going to at any moment, consistently stating she will not make it through the day. She had just been discharged from [facility] 5 days prior to admission, where she was treated for similar symptoms, but was noncompliant with medications after discharge, not believing she needed them. Multiple medication changes have been made to address mood, anxiety, psychosis, and sleep: Initially Depakote was discontinued, olanzapine 10 mg at bedtime continued, and mirtazapine started; but due to concerns for akathisia, olanzapine was discontinued in favor of quetiapine, and lamotrigine was started for bipolar depression. Her mood, psychosis, and anxiety worsened, she refused medications for several days, tried to leave the unit, was not eating or drinking and lost weight (BMI 15.1), was not able to participate in treatment or respond to staff, and ultimately had to be placed on a 302 involuntary commitment on 10/16/2018 given her inability to to give informed consent for treatment and the potential need to inject her with benzodiazepines to treat catatonia. She is improved with the addition of lorazepam, and is now better able to participate in treatment. Inpatient treatment remains medically necessary due to the severity of her symptoms, and ability to provide for her own basic needs without inpatient level of care, and risk for harm to herself if discharged. (1) Suicidal ideation: 10/06 and 10/07 - inpatient is least restrictive and most appropriate setting for care given multiple risk factors, passive SI, hopelessness, pain, poor sleep, restlessness. 10/08 -patient endorsing suicidal thoughts with a plan to starve herself, and reports that she has been restricting intake with unknown amount of weight loss. She is underweight with BMI 15.4. Continue to monitor p.o. intake and encourage good nutrition. 10/09 - Pt denies active SI, but continues to believe that she is "reaching the end" and that is imminent, which further contributes to her anxiety 10/11 -today patient is reporting to harm herself, and states that she would "probably" tried to end her life if she were not in the hospital. 10/12 - The patient reports today that she does not feel that it will be necessary for her to commit suicide because she is to be put to in the morning by lethal injection. 10/16 -patient is eating very little, not drinking, stating alternatively that she will at any moment or that she is already . 10/17- Mood, SI, and psychosis improving. (2) Bipolar disorder: 10/06 - She had been stable for many years on Zyprexa +/- Depakote and trazodone although occasional low moods often seasonally mediated and anxiety at times failing Cymbalta due to PANIAGUA's. Given this history I would like to keep her on a mood stabilizer but am concerned about hair loss and tremor and possible compounded cognitive impairment with Depakote so I held this, so will keep Zyprexa 10mg for now.stop Depakote, continue Zyprexa 10mg, start Remeron 15mg/hs 10/07 - stopped zyprexa to r/o akathisia (5mg tonight then off), returned to Seroquel (due to sedation stopped Remeron as well) 100mg tonight then 200mg thereafter with hope would stabilize, help depression and off label help sleep and anxiety, initial target dose if 200mg watching to assure not too fatigued as per last trial t 300mg when she had enuresis and daytime fatigue. She is now at lowered dose of morphine so fatigue and oversedation less likely Strongly consider Lamictal for mood stabilization, due to h/o break through depression on Seroquel in the noel, titration briefly discussed today but patient was too overwhelmed to consent. 10/08 -Continue quetiapine 200 mg at bedtime, and at 50 mg as needed dose for sleep. Reviewed the risks, benefits, and side effects of lamotrigine, which was also reviewed with her yesterday, including the risk of serious rash/SJS. She agreed to a trial, and will start 25 mg daily. -Order fasting labs for monitoring on an atypical antipsychotic. 10/09 - Planning to initiate quetiapine 25mg BID at 0900 and 1400; will order 25mg q4h prn for anxiety/disorganized thoughts. Will continue quetiapine 200mg at bedtime with 50mg additional dose as needed for sleep. - Will attempt to get fasting labs tomorrow morning, as patient had eaten overnight and the blood test could not be completed today - Continue lamotrigine 25mg daily 10/10 - Will titrate daytime doses of quetiapine to 50mg BID with continued 200mg/50mg bedtime dosing - Continue lamotrigine 25mg daily - Will restart mirtazapine at 15mg as patient continues to experience insomnia, receiving only 1.75 hours of sleep last evening 10/11 -Continue current medications; quetiapine just increased yesterday with scheduled dosing throughout the day as well as as needed dose; continue to titrate to effective dose. Sleep improved with resumption of mirtazapine. 10/13 hopefully can titrate Seroquel tomorrow. 10/14--doesn't appear that benefiting much from Seroquel, hesitant to titrate given sedation, tremor and gait. Appetite remains poor. Refused meds this am. Was losing weight on Zyprexa. Trial of a typical agent (haldol) may be appropriate, will defer to primary team. will note that if patient continues to refuse PO medications, she should receive meds over objection as or serious injury to self would come from psychotic disorder resulting in poor PO and she will not improve without such medication. Refusal of meds and level of psychosis would be indication for involuntary commitment. 10/15--patient refusing medications and not answering questions today. She did converse with the licensed master social worker and was able to eat, but was uncooperative with my attempt to interview her. She has not received quetiapine in 2 days. I will order haloperidol as needed, and consider a 302 involuntary commitment and medications over objection if she does not improve in the next 24 hours. -Patient appears more altered today. She has not had labs since 10/05/2018, so will order a CMP, CBC, and UA to rule out electrolyte abnormalities, UTI, and look for signs of infection or other medical issues that could contribute to deteriorating mental status/delirium. -Consider EEG. 10/16--patient refusing medications for the third day in a row, not eating very much, refusing to drink, and attempted to leave the unit last night. She is refusing all groups, and will not engage or talk with staff. She continues to state that she believes she is , or will at any moment. She has been in her bed most of the time, and does not respond to questions or commands. CBC, CMP, and UA were checked yesterday and were notable for elevated WBC 11.78, hemoglobin 17.2, hematocrit 47.2, elevated MCH and MCV HC. Total bilirubin was elevated at 1.1, and remainder of CMP was normal. UA showed 1+ ketones. Vital signs were normal this morning. Lab results do not indicate any active medical conditions contributing to her altered mental status and decreased responsiveness. Ketonuria does indicate starvation, and if she is already underweight with a BMI of 15.1, she is at risk if she continues to refuse to eat. Current symptoms are consistent with catatonia and I would like to do a lorazepam challenge; 1 mg p.o. stat was ordered, but the patient is refusing to take oral medications. We will need to use IM Lorazepam. As she is severely depressed, psychotic, catatonic, unable to appreciate the risks and benefits of treatment, and is refusing potentially life-saving treatment including medications, fluids, and food, we will proceed with a 302 involuntary commitment. 10/17--catatonia significantly improved, we will schedule Lorazepam 2 mg 3 times daily and taper as tolerated. --Continue lamotrigine, quetiapine, mirtazapine, and trihexyphenidyl as ordered, which she is now taking willingly. --Encourage group attendance and participation. Work on addressing stressors, including financial concerns, housing, and supports. Scheduled family meeting with son. --Work on discharge planning. 10/18 - Pt condition mildly worse today; however, still improved overall since admission - Due to concerns for sedation, lorazepam was reduced to 1mg TID - Continue lamotrigine, quetiapine, mirtazapine, and trihexyphenidyl as above - Son stopped in for family meeting later this morning 10/19 - Titrate HS dose of quetiapine to 250mg; continue quetiapine 50mg BID - Continue lorazepam 1mg TID - Continue lamotrigine, mirtazapine, and trihexyphenidyl 10/20 -Continue current medications. Frequent reassurance required, encourage patient to participate in groups and activities. (3) Akathisia: 10/06/18 - possibly neuroleptic induced, worsened by anxiety. Working theory is lowered dose of morphine uncovered akathisia caused by Zyprexa need to gather more history to consider need for AAP vs. mood stabilizer or both and prior response to other meds, would like to avoid anticholinergics given cognitive concerns 10/07/18 - she is having insomnia, needs mood stabilization and antidepressant, she did have some fatigue on 300mg but now on lowered dose of morphine. There were possibly two instances of enuresis but 200mg consistently was never tested over longer term for treatment, and given akathisia do not wish to use Clozaril and other AAP ongoing likelihood of akathisia so will retrial Seroquel titration to 200mg watching energy, and monitoring for nighttime urination. Patient affirms understanding history and current situation reviewed and she agrees with this plan as it supports multiple symptoms and leads to reduction of polypharmacy. 10/09 - Unclear if tremor and restlessness is true akathisia or related to anxiety - as it is not constant and appears to be worse when anxiety is highest - Continue to observe, but will refrain from treating with additional medication at this time - No evidence of cogwheeling or dystonia on physical exam 10/13 --EPS resolved with Artane 10/12 -Cogwheeling is present today on physical examination. The patient was given diphenhydramine 25 mg IM and is being observed. Her symptoms do appear to be consistent with akathisia, although they do appear to wax and wane. 10/16 -although cogwheeling and tremulousness continue, we are avoiding deliriogenic medications given her worsening mental status. 10/17--resume trihexyphenidyl 2 mg twice daily. (4) Cognitive disorder: 10/06/18 - I am concerned about her cognition as her overall MMSE-like assessment was near normal outside of a few points, but her CLOX was notably poor indicating poor executive function concerns. Again I will need to review PCM's records to see what labs and studies have been done to r/u reversible causes of cognitive decline. TSH WNL, LFTs WNL. Furthermore morphine and zyprexa and residual VPA can contribute to poor cognition. Will add MVI for now to support. 10/07 - review of remainder of labs from Dr Davis cited in 10/07 note B12, cbc, CMP vit D all WNL, could be h/o alcohol, polypharmacy with narcotic and AAP, and VPA although the latter has been stopped. There are no focal findings on exam. CLOX I indicates frontal lobe/executive issues but no other obvious release signs or personality changes or overt disinhibition. Recommend referral to neuropsych testing at [facility] after discharge for further characterization of her deficits as they may be pseudo dementia of depression or medications or both. 10/12 -Cognitive testing currently is not possible, due to the degree of the patien t's thought disorganization and psychotic thinking. (5) Anxiety: 10/06/18 - remeron off label, zyprexa off label 10/07/18 - off remeron onto seroquel may have some off label help for sleep and anxiety, supportive therapy on milieu as patient works through some roots of anxiety in divulging her medication diversion 10/09 - Quetiapine 25mg BID at 0900 and 1400 - with prn doses available q4h prn - Continue supportive therapy and engage patient in groups and active coping strategies as able 10/10 - Titrating daytime doses of quetiapine to 50mg BID, continue prn dosing if necessary - Will restart mirtazapine at 15mg this evening to target insomnia and persistent ruminations regarding health and feelings of guilt - If restart of mirtazapine is over-sedating, can consider reducing dose to 7.5mg qHS 10/12 -The patient's underlying anxiety may be exacerbated seizure. She describes a restless, "jumpy" feeling much of the time. She also notes that it is sometimes difficult for her to swallow and her muscles feel "stiff." On examination, today, there is cogwheel rigidity. 10/19 - Titrating quetiapine for mood stabilization/ongoing delusions - off-label benefit for anxiety - Now 50mg qAM, 50mg in afternoon and 250mg qHS - Quetiapine 25mg remains available as needed (6) Chronic pain: 10/06/18 - continue home dose of morphine (if Remeron not effective for mood consider SNRI desvenlafaxine with caution) 10/07/18 - patient admits to real pain but taking her morphine less than prescribed for many years and up until recently diverting the rest for money, she states she has recently changed this practice but is concerned about how to tell her doctors and the emerging financial strain now that she is no longer diverting her medications. This is a major source of her anxiety, possibly contributing to depression and weight loss as well. - request the weekday team help her to tell her PCM and psychiatrist, and then to work out possible relationship with pain clinic for [place] or related opiate agonist/antagonist so that her pain can be treated and not diverted if possible. 10/08 -Patient too distraught, psychotic, and disorganized today to address this. 10/09 - Continues to verbalize pain; states it is manageable 10/11 -Patient endorses guilt at times related to selling her prescribed morphine, and this has not yet been addressed with her PCP, who is out of the office until next week. The patient remains to distraught and psychotic to process this, so will revisit it next week. 10/16 -Patient has refused morphine the last 2 days. If she resumes it at some point, may want to use a lower dose to avoid oversedation. 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 -Called Dr. Davis to review morphine misuse and his recs re: ongoing morphine/pain management. Spoke with his nurse, reviewed course of treatment thus far, and gave contact information for him to call if he has any further treatment recommendations. 10/18 - Dr. Davis returned phone call regarding the above concerns - he is agreeable with reduction of HS morphine to 15mg; he reports desire for a pain management referral for ongoing management - As patient has not consistently been utilizing prn Morphine IR, it was suggested the prn be held and replaced with acetaminophen 1,000mg up to 4x daily for pain - He suggested option of Icy Hot or Salonpas for more mild pain to avoid centrally acting medications if not necessary for severity of reported pain - we will see what is formulary - He was informed that patient has reported selling her morphine and is willing to rebuild therapeutic rapport with the patient after she is discharged 10/19 - Called pain management clinic in regard to referral - if consultation during admission would be desired - It is reported PCP would need to make referral to pain management clinic Inventory Assets Strengths: voluntary, good rapport with outpatient MD Needs: support, further medical record reveiw and outpatient f/u Risk Factors Assessment Male: No : Yes Do You Have Access To A Gun?: No Health Problems: Yes Mental Health Diagnoses: Yes Substance Use Disorders: No Previous Attempt: No Family History of Suicide: No Previous Psychiatric Hospitalization: Yes Hopelessness: Yes Smoker: Yes Protective Factors Assessment Scientology Beliefs: Yes : No Employed: No (Disability for back pain from [employer]) Good Rapport with Provider: Yes Interval History Identifying Information ALINA STONE is a 58-year-old F who currently lives in [facility], has her own home but presently staying with a friend, who has a history of Bipolar disorder and was admitted on 10/06/18 00:28 on a 201 voluntary status for psychotic depression and suicidality. Her symptoms worsened and progressed to catatonia, and she was placed on a 302 involuntary commitment on 10/16/2018 due to unresponsiveness and inability to participate in or consent to treatment. Chief Complaint "Just panicking". Review of Systems Sleep Information Total Hours of Sleep: 7.25 Sleep Comments: awakened at 0530 to check for continence. she had been incontinent in her under garment and had vomited a large quantity of undigested food. she knew she had vomited and said she had slept well. feeling hungry and wanting to drink fluids. Meal Information Percent Meal Consumed - Breakfast: 100 Percent Meal Consumed - Lunch: 100 Percent Meal Consumed - Dinner: 100 Nutrition Comment: boost with lunch Subjective Subjective Patient was seen & assessed and interval progress reviewed with nursing and social work. Staff report she continues to report fears that her heart will stop at night while she's sleeping, and quetiapine was increased to 250mg HS. She had an episode of emesis last night and didn't tell staff, was found lying in it. She was assisted to clean up, and then lay down and in another patient's bed and was incontinent of urine. She reported she saw a vision of her cat on the unit this morning, after another patient reported hallucinations of a cat. She was weighted last PM and has gained weight, which she was pleased with. On my assessment, the patient states she is feeling very anxious this morning, is fearful, and not sure what she should be doing. She requires frequent redirection and reassurance. She reports one episode of emesis overnight, and says she remained lying in bed because she felt too weak to get up. She denies nausea or any further vomiting. She ate breakfast and tolerated it well. She denies suicidal thoughts, but states "I just feel lost." She repeatedly asks what she is supposed to be doing. Physical Exam Psychiatric Orientation: alert Oriented x9/10, only missing the date by one. Apperance: appropriately dressed, appropriately groomed and appeared stated age Very thin. Eye Contact: good eye contact Gait is slightly slowed. Affect: + anxious affect, + constricted affect and mood congruent with affect Mood: + anxious mood Thought Process: + perseveration (On fearfulness and what she is supposed to be doing throughout the day) Thought Content: + paranoid (Fears that she will at any moment) and + cognitive distortions Suicidal Thoughts: denies suicidal thoughts Homicidal Thoughts: denies homicidal thoughts Hallucinations: no auditory hallucinations and no visual hallucinations Cognition: recent memory grossly intact and language grossly intact; + attention not intact Insight: + impaired insight Judgement: + impaired judgement Vital Signs (Past 24 Hours) Last Vital Signs Temp 36.7 C 10/20/18 06:45 Pulse 80 10/20/18 06:46 Resp 16 10/20/18 06:45 BP 134/79 10/20/18 06:46 Pulse Ox 98 10/06/18 01:41 See physical exam by Dr. East in the ER 10/05/18 which has been reviewed and accepted for purposes of this H&P Results & Data Current Inpatient Medications Current Inpatient Medications: Current Inpatient Medications Acetaminophen (Tylenol) 1,000 mg PO Q6H PRN PRN Reason: Headache or Minor Fever Stop: 11/17/18 18:47 Last Admin: 10/19/18 18:15 Dose: 1,000 mg Documented by: Al Hydrox/Mg Hydrox/Simethicone (Maalox) 30 ml PO Q4H PRN PRN Reason: GI Upset Stop: 11/05/18 01:21 Atorvastatin Calcium (Lipitor) 20 mg PO QAM SHUN Stop: 11/05/18 08:59 Last Admin: 10/20/18 07:44 Dose: 20 mg Documented by: Bismuth Subsalicylate (Kaopectate) 15 ml PO PRN PRN PRN Reason: Loose Stool Stop: 11/05/18 01:21 Haloperidol (Haldol) 2.5 mg PO Q4H PRN PRN Reason: psychosis Stop: 11/14/18 15:22 Last Admin: 10/19/18 15:46 Dose: 2.5 mg Documented by: Hydroxyzine HCl (Vistaril) 25 mg PO Q4H PRN PRN Reason: Anxiety Stop: 11/05/18 01:21 Last Admin: 10/12/18 10:04 Dose: 25 mg Documented by: Lamotrigine (Lamictal) 25 mg PO QAM [facility] Stop: 11/07/18 09:29 Last Admin: 10/20/18 07:44 Dose: 25 mg Documented by: Lorazepam (Ativan) 2 mg IM TID PRN PRN Reason: catatonia Stop: 11/16/18 07:54 Lorazepam (Ativan) 1 mg PO TID [facility] Stop: 11/17/18 08:59 Last Admin: 10/20/18 07:44 Dose: 1 mg Documented by: Magnesium Hydroxide (Milk Of Magnesia) 30 ml PO DAILY PRN PRN Reason: Heartburn Stop: 11/05/18 01:21 Last Admin: 10/09/18 15:32 Dose: 30 ml Documented by: Mirtazapine (Remeron) 15 mg PO HS [facility] Stop: 11/09/18 21:59 Last Admin: 10/19/18 21:55 Dose: 15 mg Documented by: Morphine Sulfate (Ms Contin) 15 mg PO HS [facility] Stop: 10/31/18 21:59 Last Admin: 10/19/18 21:55 Dose: 15 mg Documented by: Multivitamins (Multivitamin Tab) 1 tab PO QAM [facility] Stop: 11/05/18 08:59 Last Admin: 10/20/18 07:44 Dose: 1 tab Documented by: Nicotine (Nicoderm Cq) 21 mg TD QAM [facility] Stop: 11/05/18 08:59 Last Admin: 10/20/18 07:48 Dose: Not Given Documented by: Nicotine Polacrilex (Nicorette 2mg) 1 piece MT UD PRN PRN Reason: Nicotine Withdrawal Stop: 11/05/18 01:21 Quetiapine Fumarate (Seroquel) 50 mg PO HS PRN PRN Reason: Insomnia Stop: 11/07/18 21:59 Last Admin: 10/17/18 02:35 Dose: 50 mg Documented by: Quetiapine Fumarate (Seroquel) 25 mg PO Q4H PRN PRN Reason: anxiety/agitation Stop: 11/08/18 11:44 Last Admin: 10/19/18 12:56 Dose: 25 mg Documented by: Quetiapine Fumarate (Seroquel) 50 mg PO BID@0900,1400 SHUN Stop: 11/10/18 08:59 Last Admin: 10/20/18 07:44 Dose: 50 mg Documented by: Quetiapine Fumarate (Seroquel) 200 mg PO HS SHUN Stop: 11/18/18 21:59 Last Admin: 10/19/18 21:54 Dose: 200 mg Documented by: Quetiapine Fumarate (Seroquel) 50 mg PO HS [facility] Stop: 11/18/18 21:59 Last Admin: 10/19/18 21:55 Dose: 50 mg Documented by: Sodium Chloride ([place] Nasal) 1 - 2 sprays NA PRN PRN PRN Reason: Nasal Dryness/Congestion Stop: 11/05/18 01:21 Trihexyphenidyl HCl (Artane) 2 mg PO BID [facility] Stop: 11/11/18 20:59 Last Admin: 10/20/18 07:44 Dose: 2 mg Documented by: Mental Health & Subst Abuse Tx Psychiatrist Name of Psychiatrist: [facility] Duncan Borden Psychiatrist's Date of Appointment with Psychiatrist: 10/24/18 Time of Appointment with Psychiatrist: 11:30 a.m. Psychiatric App[facility]ment [facility] [phone] The[facility]'s Date of Therapist Appointment: 10/15/18 Time of Therapist Appointment: 3:00 p.m. Therapy Appointment Comment: [phone] Varina[place]ANDI Automation Engineering Manager Name of Automation Engineering Manager: None Post Discharge Appointments Primary Care Physician Name Of Family Doctor: [facility] - Dr. Yovany Davis Primary Care Date of Appointment with PCP: 11/05/18 Time of Appointment with PCP: 8:30 a.m. Provider Appointment Comment: [phone], [address] Contact Information Discharge Discharge Address: [address] [place] [address] CPT Code CPT Code 01627 (1) Bipolar disorder Active/Remission status: currently active Current bipolar episode type: depressed Current episode severity: severe Psychotic features: with psychotic features Qualified Code(s): F31.5 - Bipolar disorder, current episode depressed, severe, with psychotic features
[2018-10-20] MEDS: QUETIAPINE FUMARATE 25 MG TABLET PO PRN (11:28)
[2018-10-20] MEDS: MAGNESIUM HYDROXIDE SUSP 30 ML UDC PO PRN (11:28)
[2018-10-20] MEDS ORDERED: TRIHEXYPHENIDYL HCL 2 MG TAB PO PRN (15:28)
[2018-10-20] MEDS: ACETAMINOPHEN 500 MG TAB PO PRN (16:11)
[2018-10-20] MEDS: MoRPHine SULFATE CR 15 MG TABCR PO SCH (20:58)
[2018-10-20] MEDS: QUETIAPINE FUMARATE 200 MG TAB PO SCH (20:59)
[2018-10-20] MEDS: MIRTAZAPINE TAB 15 MG TAB PO SCH (20:59)
[2018-10-21] MEDS: TRIHEXYPHENIDYL HCL 2 MG TAB PO SCH ×2 (07:43→20:34)
[2018-10-21] MEDS: LORazepam 1 MG TAB PO SCH ×3 (07:44→20:34)
[2018-10-21] MEDS: MULTIVITAMIN TAB PO SCH (07:45)
[2018-10-21] MEDS: ATORVASTATIN 20 MG TAB PO SCH (07:45)
[2018-10-21] MEDS: lamoTRIgine 25 MG TAB PO SCH (07:45)
[2018-10-21] MEDS: NICOTINE 21 MG/24 HR TDSY TD SCH (07:46)
[2018-10-21] MEDS: QUETIAPINE FUMARATE 25 MG TABLET PO SCH ×3 (07:46→21:21)
--- NOTE | 2018-10-21 08:20 | Psychiatric Progress Note ---
Date of Service October 21, 2018 Impression / Recommendations Impression 58y/o female with bipolar disorder who presented with depression, anxiety, and SI in the context of poor p.o. intake, underweight with BMI of 15.4, and perseveration on delusions that she is going to at any moment, consistently stating she will not make it through the day. She had just been discharged from [facility] [place] 5 days prior to admission, where she was treated for similar symptoms, but was noncompliant with medications after discharge, not believing she needed them. Multiple medication changes have been made to address mood, anxiety, psychosis, and sleep: Initially Depakote was discontinued, olanzapine 10 mg at bedtime continued, and mirtazapine started; but due to concerns for akathisia, olanzapine was discontinued in favor of quetiapine, and lamotrigine was started for bipolar depression. Her mood, psychosis, and anxiety worsened, she refused medications for several days, tried to leave the unit, was not eating or drinking and lost weight (BMI 15.1), was not able to participate in treatment or respond to staff, and ultimately had to be placed on a 302 involuntary commitment on 10/16/2018 given her inability to to give informed consent for treatment and the potential need to inject her with benzodiazepines to treat catatonia. She is improved with the addition of lorazepam, and is now better able to participate in treatment. Inpatient treatment remains medically necessary due to the severity of her symptoms, and ability to provide for her own basic needs without inpatient level of care, and risk for harm to herself if discharged. (1) Suicidal ideation: 10/06 and 10/07 - inpatient is least restrictive and most appropriate setting for care given multiple risk factors, passive SI, hopelessness, pain, poor sleep, restlessness. 10/08 -patient endorsing suicidal thoughts with a plan to starve herself, and reports that she has been restricting intake with unknown amount of weight loss. She is underweight with BMI 15.4. Continue to monitor p.o. intake and encourage good nutrition. 10/09 - Pt denies active SI, but continues to believe that she is "reaching the end" and that is imminent, which further contributes to her anxiety 10/11 -today patient is reporting to harm herself, and states that she would "probably" tried to end her life if she were not in the hospital. 10/12 - The patient reports today that she does not feel that it will be necessary for her to commit suicide because she is to be put to in the morning by lethal injection. 10/16 -patient is eating very little, not drinking, stating alternatively that she will at any moment or that she is already . 10/17- Mood, SI, and psychosis improving. (2) Bipolar disorder: 10/06 - She had been stable for many years on Zyprexa +/- Depakote and trazodone although occasional low moods often seasonally mediated and anxiety at times failing Cymbalta due to PANIAGUA's. Given this history I would like to keep her on a mood stabilizer but am concerned about hair loss and tremor and possible compounded cognitive impairment with Depakote so I held this, so will keep Zyprexa 10mg for now.stop Depakote, continue Zyprexa 10mg, start Remeron 15mg/hs 10/07 - stopped zyprexa to r/o akathisia (5mg tonight then off), returned to Seroquel (due to sedation stopped Remeron as well) 100mg tonight then 200mg thereafter with hope would stabilize, help depression and off label help sleep and anxiety, initial target dose if 200mg watching to assure not too fatigued as per last trial t 300mg when she had enuresis and daytime fatigue. She is now at lowered dose of morphine so fatigue and oversedation less likely Strongly consider Lamictal for mood stabilization, due to h/o break through depression on Seroquel in the noel, titration briefly discussed today but patient was too overwhelmed to consent. 10/08 -Continue quetiapine 200 mg at bedtime, and at 50 mg as needed dose for sleep. Reviewed the risks, benefits, and side effects of lamotrigine, which was also reviewed with her yesterday, including the risk of serious rash/SJS. She agreed to a trial, and will start 25 mg daily. -Order fasting labs for monitoring on an atypical antipsychotic. 10/09 - Planning to initiate quetiapine 25mg BID at 0900 and 1400; will order 25mg q4h prn for anxiety/disorganized thoughts. Will continue quetiapine 200mg at bedtime with 50mg additional dose as needed for sleep. - Will attempt to get fasting labs tomorrow morning, as patient had eaten overnight and the blood test could not be completed today - Continue lamotrigine 25mg daily 10/10 - Will titrate daytime doses of quetiapine to 50mg BID with continued 200mg/50mg bedtime dosing - Continue lamotrigine 25mg daily - Will restart mirtazapine at 15mg as patient continues to experience insomnia, receiving only 1.75 hours of sleep last evening 10/11 -Continue current medications; quetiapine just increased yesterday with scheduled dosing throughout the day as well as as needed dose; continue to titrate to effective dose. Sleep improved with resumption of mirtazapine. 10/13 hopefully can titrate Seroquel tomorrow. 10/14--doesn't appear that benefiting much from Seroquel, hesitant to titrate given sedation, tremor and gait. Appetite remains poor. Refused meds this am. Was losing weight on Zyprexa. Trial of a typical agent (haldol) may be appropriate, will defer to primary team. will note that if patient continues to refuse PO medications, she should receive meds over objection as or serious injury to self would come from psychotic disorder resulting in poor PO and she will not improve without such medication. Refusal of meds and level of psychosis would be indication for involuntary commitment. 10/15--patient refusing medications and not answering questions today. She did converse with the director of social work and was able to eat, but was uncooperative with my attempt to interview her. She has not received quetiapine in 2 days. I will order haloperidol as needed, and consider a 302 involuntary commitment and medications over objection if she does not improve in the next 24 hours. -Patient appears more altered today. She has not had labs since 10/05/2018, so will order a CMP, CBC, and UA to rule out electrolyte abnormalities, UTI, and look for signs of infection or other medical issues that could contribute to deteriorating mental status/delirium. -Consider EEG. 10/16--patient refusing medications for the third day in a row, not eating very much, refusing to drink, and attempted to leave the unit last night. She is refusing all groups, and will not engage or talk with staff. She continues to state that she believes she is , or will at any moment. She has been in her bed most of the time, and does not respond to questions or commands. CBC, CMP, and UA were checked yesterday and were notable for elevated WBC 11.78, hemoglobin 17.2, hematocrit 47.2, elevated MCH and MCV HC. Total bilirubin was elevated at 1.1, and remainder of CMP was normal. UA showed 1+ ketones. Vital signs were normal this morning. Lab results do not indicate any active medical conditions contributing to her altered mental status and decreased responsiveness. Ketonuria does indicate starvation, and if she is already underweight with a BMI of 15.1, she is at risk if she continues to refuse to eat. Current symptoms are consistent with catatonia and I would like to do a lorazepam challenge; 1 mg p.o. stat was ordered, but the patient is refusing to take oral medications. We will need to use IM Lorazepam. As she is severely depressed, psychotic, catatonic, unable to appreciate the risks and benefits of treatment, and is refusing potentially life-saving treatment including medications, fluids, and food, we will proceed with a 302 involuntary commitment. 10/17--catatonia significantly improved, we will schedule Lorazepam 2 mg 3 times daily and taper as tolerated. --Continue lamotrigine, quetiapine, mirtazapine, and trihexyphenidyl as ordered, which she is now taking willingly. --Encourage group attendance and participation. Work on addressing stressors, including financial concerns, housing, and supports. Scheduled family meeting with son. --Work on discharge planning. 10/18 - Pt condition mildly worse today; however, still improved overall since admission - Due to concerns for sedation, lorazepam was reduced to 1mg TID - Continue lamotrigine, quetiapine, mirtazapine, and trihexyphenidyl as above - Son stopped in for family meeting later this morning 10/19 - Titrate HS dose of quetiapine to 250mg; continue quetiapine 50mg BID - Continue lorazepam 1mg TID - Continue lamotrigine, mirtazapine, and trihexyphenidyl 10/20 -Continue current medications. Frequent reassurance required, encourage patient to participate in groups and activities. 10/21 -Increase lamotrigine to 50 mg daily tomorrow, and in 2 more weeks can increase to 100 mg daily. -Limit as needed doses of Artane due to dry mouth and excessive thirst. (3) Akathisia: 10/06/18 - possibly neuroleptic induced, worsened by anxiety. Working theory is lowered dose of morphine uncovered akathisia caused by Zyprexa need to gather more history to consider need for AAP vs. mood stabilizer or both and prior response to other meds, would like to avoid anticholinergics given cognitive concerns 10/07/18 - she is having insomnia, needs mood stabilization and antidepressant, she did have some fatigue on 300mg but now on lowered dose of morphine. There were possibly two instances of enuresis but 200mg consistently was never tested over longer term for treatment, and given akathisia do not wish to use Clozaril and other AAP ongoing likelihood of akathisia so will retrial Seroquel titration to 200mg watching energy, and monitoring for nighttime urination. Patient affirms understanding history and current situation reviewed and she agrees with this plan as it supports multiple symptoms and leads to reduction of polypharmacy. 10/09 - Unclear if tremor and restlessness is true akathisia or related to anxiety - as it is not constant and appears to be worse when anxiety is highest - Continue to observe, but will refrain from treating with additional medication at this time - No evidence of cogwheeling or dystonia on physical exam 10/13 --EPS resolved with Artane 10/12 -Cogwheeling is present today on physical examination. The patient was given diphenhydramine 25 mg IM and is being observed. Her symptoms do appear to be consistent with akathisia, although they do appear to wax and wane. 10/16 -although cogwheeling and tremulousness continue, we are avoiding deliriogenic medications given her worsening mental status. 10/17--resume trihexyphenidyl 2 mg twice daily. (4) Cognitive disorder: 10/06/18 - I am concerned about her cognition as her overall MMSE-like assessment was near normal outside of a few points, but her CLOX was notably poor indicating poor executive function concerns. Again I will need to review PCM's records to see what labs and studies have been done to r/u reversible causes of cognitive decline. TSH WNL, LFTs WNL. Furthermore morphine and zyprexa and residual VPA can contribute to poor cognition. Will add MVI for now to support. 10/07 - review of remainder of labs from Dr Davis cited in 10/07 note B12, cbc, CMP vit D all WNL, could be h/o alcohol, polypharmacy with narcotic and AAP, and VPA although the latter has been stopped. There are no focal findings on exam. CLOX I indicates frontal lobe/executive issues but no other obvious release signs or personality changes or overt disinhibition. Recommend referral to neuropsych testing at [facility] after discharge for further characterization of her deficits as they may be pseudo dementia of depression or medications or both. 10/12 -Cognitive testing currently is not possible, due to the degree of the patient's thought disorganization and psychotic thinking. (5) Anxiety: 10/06/18 - remeron off label, zyprexa off label 10/07/18 - off remeron onto seroquel may have some off label help for sleep and anxiety, supportive therapy on milieu as patient works through some roots of anxiety in divulging her medication diversion 10/09 - Quetiapine 25mg BID at 0900 and 1400 - with prn doses available q4h prn - Continue supportive therapy and engage patient in groups and active coping strategies as able 10/10 - Titrating daytime doses of quetiapine to 50mg BID, continue prn dosing if n ecessary - Will restart mirtazapine at 15mg this evening to target insomnia and persistent ruminations regarding health and feelings of guilt - If restart of mirtazapine is over-sedating, can consider reducing dose to 7.5mg qHS 10/12 -The patient's underlying anxiety may be exacerbated seizure. She describes a restless, "jumpy" feeling much of the time. She also notes that it is sometimes difficult for her to swallow and her muscles feel "stiff." On examination, today, there is cogwheel rigidity. 10/19 - Titrating quetiapine for mood stabilization/ongoing delusions - off-label benefit for anxiety - Now 50mg qAM, 50mg in afternoon and 250mg qHS - Quetiapine 25mg remains available as needed (6) Chronic pain: 10/06/18 - continue home dose of morphine (if Remeron not effective for mood consider SNRI desvenlafaxine with caution) 10/07/18 - patient admits to real pain but taking her morphine less than prescribed for many years and up until recently diverting the rest for money, she states she has recently changed this practice but is concerned about how to tell her doctors and the emerging financial strain now that she is no longer diverting her medications. This is a major source of her anxiety, possibly contributing to depression and weight loss as well. - request the weekday team help her to tell her PCM and psychiatrist, and miguel ahn to work out possible relationship with pain clinic for [place] or related opiate agonist/antagonist so that her pain can be treated and not diverted if possible. 10/08 -Patient too distraught, psychotic, and disorganized today to address this. 10/09 - Continues to verbalize pain; states it is manageable 10/11 -Patient endorses guilt at times related to selling her prescribed morphine, and this has not yet been addressed with her PCP, who is out of the office until next week. The patient remains to distraught and psychotic to process this, so will revisit it next week. 10/16 -Patient has refused morphine the last 2 days. If she resumes it at some point, may want to use a lower dose to avoid oversedation. 10/17 -Lower morphine dose to 15 mg at bedtime, and continue 15 mg as needed dose, as patient is now receiving scheduled lorazepam for catatonia, and want to avoid BRAND STRATEGIST depression and oversedation. -Called Dr. Davis to review morphine misuse and his recs re: ongoing morphine/pain management. Spoke with his nurse, reviewed course of treatment thus far, and gave contact information for him to call if he has any further treatment recommendations. 10/18 - Dr. Davis returned phone call regarding the above concerns - he is agreeable with reduction of HS morphine to 15mg; he reports desire for a pain management referral for ongoing management - As patient has not consistently been utilizing prn Morphine IR, it was suggested the prn be held and replaced with acetaminophen 1,000mg up to 4x daily for pain - He suggested option of Icy Hot or Salonpas for more mild pain to avoid centrally acting medications if not necessary for severity of reported pain - we will see what is formulary - He was informed that patient has reported selling her morphine and is willing to rebuild therapeutic rapport with the patient after she is discharged 10/19 - Called pain management clinic in regard to referral - if consultation during admission would be desired - It is reported PCP would need to make referral to pain management clinic Inventory Assets Strengths: voluntary, good rapport with outpatient MD Needs: support, further medical record reveiw and outpatient f/u Risk Factors Assessment Male: No : Yes Do You Have Access To A Gun?: No Health Problems: Yes Mental Health Diagnoses: Yes Substance Use Disorders: No Previous Attempt: No Family History of Suicide: No Previous Psychiatric Hospitalization: Yes Hopelessness: Yes Smoker: Yes Protective Factors Assessment Uatsdin Beliefs: Yes : No Employed: No (Disability for back pain from [employer]) Good Rapport with Provider: Yes Interval History Identifying Information ALINA STONE is a 58-year-old F who currently lives in [facility], has her own home but presently staying with a friend, who has a history of Bipolar disorder and was admitted on 10/06/18 00:28 on a 201 voluntary status for psychotic depression and suicidality. Her symptoms worsened and progressed to catatonia, and she was placed on a 302 involuntary commitment on 10/16/2018 due to unresponsiveness and inability to participate in or consent to treatment. Chief Complaint "Up, down, all over the place". Review of Systems Sleep Information Total Hours of Sleep: 8 Sleep Comments: awakened at 0530 to check for continence. she had been incontinent in her under garment and had vomited a large quantity of undigested food. she knew she had vomited and said she had slept well. feeling hungry and wanting to drink fluids. Meal Information Percent Meal Consumed - Breakfast: 75 Percent Meal Consumed - Lunch: 100 Percent Meal Consumed - Dinner: 100 Nutrition Comment: boost with lunch Subjective Subjective Patient was seen & assessed and interval progress reviewed with nursing and social work. Staff report she has been up and out of her bed, participating in groups and therapy, but often anxious and required frequent reassurance from staff. At times she reports fears that she will , but does respond to redirection. She has received multiple doses of as needed quetiapine and Artane. A friend visited yesterday, which she appeared to enjoy. This morning she told staff that she was already and her circulation had stopped, and required significant reassurance from staff. On my assessment, she endorses significant anxiety, worrying about many things including her son, house, and car. She cannot give any further details about her concerns about these things. She says she is also worried that if her son calls in to talk to her that staff will not tell her, and thinks that "the phone is blocked for me." Her restlessness has improved since yesterday. She denies suicidal thoughts, but reports episodic fearfulness that she is going to imminently. She says her appetite is good, and that it helps to be distracted. Physical Exam Mental Examination Appearance: appropriately dressed, appropriately groomed and appeared stated age Very thin. Behavior: Calm, cooperative, and pleasant. Eye Contact: good eye contact Gait is slightly slowed, restless movements while seated. Affect: + anxious affect, + constricted affect and mood congruent with affect Mood: + anxious mood Thought Process: + perseveration, repeats the same questions Thought Content: + paranoid (Fears that she will at any moment) and + cognitive distortions Suicidal Thoughts: denies suicidal thoughts Homicidal Thoughts: denies homicidal thoughts Hallucinations: no auditory hallucinations and no visual hallucinations Cognition: language grossly intact; recent memory and attention are not intact Insight: + impaired insight Judgement: + impaired judgement Vital Signs (Past 24 Hours) Last Vital Signs Temp 36.4 C L 10/21/18 06:38 Pulse 74 10/21/18 06:39 Resp 16 10/21/18 06:38 BP 123/81 10/21/18 06:39 Pulse Ox 98 10/06/18 01:41 Results & Data Current Inpatient Medications Current Inpatient Medications: Current Inpatient Medications Acetaminophen (Tylenol) 1,000 mg PO Q6H PRN PRN Reason: Headache or Minor Fever Stop: 11/17/18 18:47 Last Admin: 10/20/18 16:11 Dose: 1,000 mg Documented by: Al Hydrox/Mg Hydrox/Simethicone (Maalox) 30 ml PO Q4H PRN PRN Reason: GI Upset Stop: 11/05/18 01:21 Atorvastatin Calcium (Lipitor) 20 mg PO QAM SHUN Stop: 11/05/18 08:59 Last Admin: 10/21/18 07:45 Dose: 20 mg Documented by: Bismuth Subsalicylate (Kaopectate) 15 ml PO PRN PRN PRN Reason: Loose Stool Stop: 11/05/18 01:21 Haloperidol (Haldol) 2.5 mg PO Q4H PRN PRN Reason: psychosis Stop: 11/14/18 15:22 Last Admin: 10/19/18 15:46 Dose: 2.5 mg Documented by: Hydroxyzine HCl (Vistaril) 25 mg PO Q4H PRN PRN Reason: Anxiety Stop: 11/05/18 01:21 Last Admin: 10/12/18 10:04 Dose: 25 mg Documented by: Lamotrigine (Lamictal) 25 mg PO QAM [facility] Stop: 11/07/18 09:29 Last Admin: 10/21/18 07:45 Dose: 25 mg Documented by: Lorazepam (Ativan) 2 mg IM TID PRN PRN Reason: catatonia Stop: 11/16/18 07:54 Lorazepam (Ativan) 1 mg PO TID SHUN Stop: 11/17/18 08:59 Last Admin: 10/21/18 07:44 Dose: 1 mg Documented by: Magnesium Hydroxide (Milk Of Magnesia) 30 ml PO DAILY PRN PRN Reason: Heartburn Stop: 11/05/18 01:21 Last Admin: 10/20/18 11:28 Dose: 30 ml Documented by: Mirtazapine (Remeron) 15 mg PO HS [facility] Stop: 11/09/18 21:59 Last Admin: 10/20/18 20:59 Dose: 15 mg Documented by: Morphine Sulfate (Ms Contin) 15 mg PO HS [facility] Stop: 10/31/18 21:59 Last Admin: 10/20/18 20:58 Dose: 15 mg Documented by: Multivitamins (Multivitamin Tab) 1 tab PO QAM [facility] Stop: 11/05/18 08:59 Last Admin: 10/21/18 07:45 Dose: 1 tab Documented by: Nicotine (Nicoderm Cq) 21 mg TD QAM [facility] Stop: 11/05/18 08:59 Last Admin: 10/21/18 07:46 Dose: 21 mg Documented by: Nicotine Polacrilex (Nicorette 2mg) 1 piece MT UD PRN PRN Reason: Nicotine Withdrawal Stop: 11/05/18 01:21 Quetiapine Fumarate (Seroquel) 50 mg PO HS PRN PRN Reason: Insomnia Stop: 11/07/18 21:59 Last Admin: 10/17/18 02:35 Dose: 50 mg Documented by: Quetiapine Fumarate (Seroquel) 25 mg PO Q4H PRN PRN Reason: anxiety/agitation Stop: 11/08/18 11:44 Last Admin: 10/20/18 11:28 Dose: 25 mg Documented by: Quetiapine Fumarate (Seroquel) 50 mg PO BID@0900,1400 [facility] Stop: 11/10/18 08:59 Last Admin: 10/21/18 07:46 Dose: 50 mg Documented by: Quetiapine Fumarate (Seroquel) 200 mg PO HS SHUN Stop: 11/18/18 21:59 Last Admin: 10/20/18 20:59 Dose: 200 mg Documented by: Quetiapine Fumarate (Seroquel) 50 mg PO HS [facility] Stop: 11/18/18 21:59 Last Admin: 10/20/18 20:59 Dose: 50 mg Documented by: Sodium Chloride (Bentley Nasal) 1 - 2 sprays NA PRN PRN PRN Reason: Nasal Dryness/Congestion Stop: 11/05/18 01:21 Trihexyphenidyl HCl (Artane) 2 mg PO BID [facility] Stop: 11/11/18 20:59 Last Admin: 10/21/18 07:43 Dose: 2 mg Documented by: Trihexyphenidyl HCl (Artane) 2 mg PO Q6H PRN PRN Reason: EPS Stop: 11/19/18 15:29 Mental Health & Subst Abuse Tx Psychiatrist [facility] Psych[facility]'s Date of Appointment with Psychiatrist: 10/24/18 Time of Appointment with Psychiatrist: 11:30 a.m. Psychiatric Appointment Comment: [address] [facility] [place] [employer] [facility] [place] Therapist Name of Therapist: [facility] Therapist's Date of Therapist Appointment: 10/15/18 Time of Therapist Appointment: 3:00 p.m. Therapy Appointment Comment: [address] [facility] [place] [facility] Hospitalist Name of Internal Medicine Hospitalist: None Post Discharge Appointments Primary Care Physician Name Of Family Doctor: [facility] - Dr. Yovany Davis Primary Care Date of Appointment with PCP: 11/05/18 Time of Appointment with PCP: 8:30 a.m. Provider Appointment Comment: [address], [address], [place] Contact Information Discharge Discharge Address: [address] [place] [address] CPT Code CPT Code 85252 (1) Bipolar disorder Active/Remission status: currently active Current bipolar episode type: depressed Current episode severity: severe Psychotic features: with psychotic features Qualified Code(s): F31.5 - Bipolar disorder, current episode depressed, severe, with psychotic features
[2018-10-21] MEDS: QUETIAPINE FUMARATE 25 MG TABLET PO PRN (09:59)
[2018-10-21] MEDS: ALUMINUM/MAGNESIUM SUSP 30 ML UDC PO PRN (17:44)
[2018-10-21] MEDS: MoRPHine SULFATE CR 15 MG TABCR PO SCH (20:34)
[2018-10-21] MEDS: QUETIAPINE FUMARATE 200 MG TAB PO SCH (21:21)
[2018-10-21] MEDS: MIRTAZAPINE TAB 15 MG TAB PO SCH (21:21)
[2018-10-22] MEDS: TRIHEXYPHENIDYL HCL 2 MG TAB PO SCH (08:05)
[2018-10-22] MEDS: LORazepam 1 MG TAB PO SCH ×3 (08:05→21:34)
[2018-10-22] MEDS: lamoTRIgine 25 MG TAB PO SCH (08:06)
[2018-10-22] MEDS: ATORVASTATIN 20 MG TAB PO SCH (08:06)
[2018-10-22] MEDS: MULTIVITAMIN TAB PO SCH (08:06)
[2018-10-22] MEDS: QUETIAPINE FUMARATE 25 MG TABLET PO SCH (08:06)
[2018-10-22] MEDS: NICOTINE 21 MG/24 HR TDSY TD SCH (08:07)
[2018-10-22] MEDS: HALOPERIDOL 5 MG TAB PO PRN (10:06)
--- NOTE | 2018-10-22 11:06 | Psychiatric Progress Note ---
Date of Service October 22, 2018 Impression / Recommendations Impression 58y/o female with bipolar disorder who presented with depression, anxiety, and SI in the context of poor p.o. intake, underweight with BMI of 15.4, and perseveration on delusions that she is going to at any moment, consistently stating she will not make it through the day. She had just been discharged from [facility] 5 days prior to admission, where she was treated for similar symptoms, but was noncompliant with medications after discharge, not believing she needed them. Multiple medication changes have been made to address mood, anxiety, psychosis, and sleep: Initially Depakote was discontinued, olanzapine 10 mg at bedtime continued, and mirtazapine started; but due to concerns for akathisia, olanzapine was discontinued in favor of quetiapine, and lamotrigine was started for bipolar depression. Her mood, psychosis, and anxiety worsened, she refused medications for several days, tried to leave the unit, was not eating or drinking and lost weight (BMI 15.1), was not able to participate in treatment or respond to staff, and ultimately had to be placed on a 302 involuntary commitment on 10/16/2018 given her inability to to give informed consent for treatment and the potential need to inject her with benzodiazepines to treat catatonia. She is improved briefly with the addition of lorazepam, and was better able to participate in treatment - signing back in voluntarily prior to expiration of her involuntary commitment. As patient's condition has been worsening, medication adjustments were recently made - favoring haloperidol (scheduled 2.5mg TID) over quetiapine, to which response had been limited. If limited improvement in observed with these adjustments, higher-dosage lorazepam may need to be considered as catatonia may be an ongoing underlying concern. Inpatient treatment remains medically necessary due to the severity of her symptoms, and ability to provide for her own basic needs without inpatient level of care, and risk for harm to herself if discharged. (1) Suicidal ideation: 10/06 and 10/07 - inpatient is least restrictive and most appropriate setting for care given multiple risk factors, passive SI, hopelessness, pain, poor sleep, restlessness. 10/08 -patient endorsing suicidal thoughts with a plan to starve herself, and reports that she has been restricting intake with unknown amount of weight loss. She is underweight with BMI 15.4. Continue to monitor p.o. intake and encourage good nutrition. 10/09 - Pt denies active SI, but continues to believe that she is "reaching the end" and that is imminent, which further contributes to her anxiety 10/11 -today patient is reporting to harm herself, and states that she would "probably" tried to end her life if she were not in the hospital. 10/12 - The patient reports today that she does not feel that it will be necessary for her to commit suicide because she is to be put to in the morning by lethal injection. 10/16 -patient is eating very little, not drinking, stating alternatively that she will at any moment or that she is already . 10/17- Mood, SI, and psychosis improving. (2) Bipolar disorder: 10/06 - She had been stable for many years on Zyprexa +/- Depakote and trazodone although occasional low moods often seasonally mediated and anxiety at times failing Cymbalta due to PANIAGUA's. Given this history I would like to keep her on a mood stabilizer but am concerned about hair loss and tremor and possible compounded cognitive impairment with Depakote so I held this, so will keep Zyprexa 10mg for now.stop Depakote, continue Zyprexa 10mg, start Remeron 15mg/hs 10/07 - stopped zyprexa to r/o akathisia (5mg tonight then off), returned to Seroquel (due to sedation stopped Remeron as well) 100mg tonight then 200mg thereafter with hope would stabilize, help depression and off label help sleep and anxiety, initial target dose if 200mg watching to assure not too fatigued as per last trial t 300mg when she had enuresis and daytime fatigue. She is now at lowered dose of morphine so fatigue and oversedation less likely Strongly consider Lamictal for mood stabilization, due to h/o break through depression on Seroquel in the noel, titration briefly discussed today but patient was too overwhelmed to consent. 10/08 -Continue quetiapine 200 mg at bedtime, and at 50 mg as needed dose for sleep. Reviewed the risks, benefits, and side effects of lamotrigine, which was also reviewed with her yesterday, including the risk of serious rash/SJS. She agreed to a trial, and will start 25 mg daily. -Order fasting labs for monitoring on an atypical antipsychotic. 10/09 - Planning to initiate quetiapine 25mg BID at 0900 and 1400; will order 25mg q4h prn for anxiety/disorganized thoughts. Will continue quetiapine 200mg at bedtime with 50mg additional dose as needed for sleep. - Will attempt to get fasting labs tomorrow morning, as patient had eaten overnight and the blood test could not be completed today - Continue lamotrigine 25mg daily 10/10 - Will titrate daytime doses of quetiapine to 50mg BID with continued 200mg/50mg bedtime dosing - Continue lamotrigine 25mg daily - Will restart mirtazapine at 15mg as patient continues to experience insomnia, receiving only 1.75 hours of sleep last evening 10/11 -Continue current medications; quetiapine just increased yesterday with sched uled dosing throughout the day as well as as needed dose; continue to titrate to effective dose. Sleep improved with resumption of mirtazapine. 10/13 hopefully can titrate Seroquel tomorrow. 10/14--doesn't appear that benefiting much from Seroquel, hesitant to titrate given sedation, tremor and gait. Appetite remains poor. Refused meds this am. Was losing weight on Zyprexa. Trial of a typical agent (haldol) may be appropriate, will defer to primary team. will note that if patient continues to refuse PO medications, she should receive meds over objection as or serious injury to self would come from psychotic disorder resulting in poor PO and she will not improve without such medication. Refusal of meds and level of psychosis would be indication for involuntary commitment. 10/15--patient refusing medications and not answering questions today. She did converse with the social service assistant and was able to eat, but was uncooperative with my attempt to interview her. She has not received quetiapine in 2 days. I will order haloperidol as needed, and consider a 302 involuntary commitment and medications over objection if she does not improve in the next 24 hours. -Patient appears more altered today. She has not had labs since 10/05/2018, so will order a CMP, CBC, and UA to rule out electrolyte abnormalities, UTI, and look for signs of infection or other medical issues that could contribute to deteriorating mental status/delirium. -Consider EEG. 10/16--patient refusing medications for the third day in a row, not eating very much, refusing to drink, and attempted to leave the unit last night. She is refusing all groups, and will not engage or talk with staff. She continues to state that she believes she is , or will at any moment. She has been in her bed most of the time, and does not respond to questions or commands. CBC, CMP, and UA were checked yesterday and were notable for elevated WBC 11.78, hemoglobin 17.2, hematocrit 47.2, elevated MCH and MCV HC. Total bilirubin was elevated at 1.1, and remainder of CMP was normal. UA showed 1+ ketones. Vital signs were normal this morning. Lab results do not indicate any active medical conditions contributing to her altered mental status and decreased responsiveness. Ketonuria does indicate starvation, and if she is already underweight with a BMI of 15.1, she is at risk if she continues to refuse to eat. Current symptoms are consistent with catatonia and I would like to do a lorazepam challenge; 1 mg p.o. stat was ordered, but the patient is refusing to take oral medications. We will need to use IM Lorazepam. As she is severely depressed, psychotic, catatonic, unable to appreciate the risks and benefits of treatment, and is refusing potentially life-saving treatment including medications, fluids, and food, we will proceed with a 302 involuntary commitment. 10/17--catatonia significantly improved, we will schedule Lorazepam 2 mg 3 times daily and taper as tolerated. --Continue lamotrigine, quetiapine, mirtazapine, and trihexyphenidyl as ordered, which she is now taking willingly. --Encourage group attendance and participation. Work on addressing stressors, including financial concerns, housing, and supports. Scheduled family meeting with son. --Work on discharge planning. 10/18 - Pt condition mildly worse today; however, still improved overall since admission - Due to concerns for sedation, lorazepam was reduced to 1mg TID - Continue lamotrigine, quetiapine, mirtazapine, and trihexyphenidyl as above - Son stopped in for family meeting later this morning 10/19 - Titrate HS dose of quetiapine to 250mg; continue quetiapine 50mg BID - Continue lorazepam 1mg TID - Continue lamotrigine, mirtazapine, and trihexyphenidyl 10/20 -Continue current medications. Frequent reassurance required, encourage patient to participate in groups and activities. 10/21 -Increase lamotrigine to 50 mg daily tomorrow, and in 2 more weeks can increase to 100 mg daily. -Limit as needed doses of Artane due to dry mouth and excessive thirst. 10/22 - Seroquel tapered to 100mg qHS and plans to utilize haloperidol as prominent antipsychotic medication based on response to prns - Haloperidol ordered 2.5mg TID to initiate, with continued availability to 2.5mg q4h prn - Discontinued Artane due to concern for ongoing excessive thirst contributing to urinary frequency/urgency - Initiated amantadine, 50mg initial dose with 100mg BID scheduled thereafter for EPS - May need to consider re-trail of lorazepam challenge if patient's condition does not improve with these adjustments (3) Akathisia: 10/06/18 - possibly neuroleptic induced, worsened by anxiety. Working theory is lowered dose of morphine uncovered akathisia caused by Zyprexa need to gather more history to consider need for AAP vs. mood stabilizer or both and prior response to other meds, would like to avoid anticholinergics given cognitive concerns 10/07/18 - she is having insomnia, needs mood stabilization and antidepressant, she did have some fatigue on 300mg but now on lowered dose of morphine. There were possibly two instances of enuresis but 200mg consistently was never tested over longer term for treatment, and given akathisia do not wish to use Clozaril and other AAP ongoing likelihood of akathisia so will retrial Seroquel titration to 200mg watching energy, and monitoring for nighttime urination. Patient affirms understanding history and current situation reviewed and she agrees with this plan as it supports multiple symptoms and leads to reduction of polypharmacy. 10/09 - Unclear if tremor and restlessness is true akathisia or related to anxiety - as it is not constant and appears to be worse when anxiety is highest - Continue to observe, but will refrain from treating with additional medication at this time - No evidence of cogwheeling or dystonia on physical exam 10/13 --EPS resolved with Artane 10/12 -Cogwheeling is present today on physical examination. The patient was given diphenhydramine 25 mg IM and is being observed. Her symptoms do appear to be consistent with akathisia, although they do appear to wax and wane. 10/16 -although cogwheeling and tremulousness continue, we are avoiding deliriogenic medications given her worsening mental status. 10/17--resume trihexyphenidyl 2 mg twice daily. 10/22 - Discontinued trihexyphenidyl - Initiated amantadine 100mg BID, beginning with 50mg dose this afternoon (4) Cognitive disorder: 10/06/18 - I am concerned about her cognition as her overall MMSE-like assessment was near normal outside of a few points, but her CLOX was notably poor indicating poor executive function concerns. Again I will need to review PCM's records to see what labs and studies have been done to r/u reversible causes of cognitive decline. TSH WNL, LFTs WNL. Furthermore morphine and zyprexa and residual VPA can contribute to poor cognition. Will add MVI for now to support. 10/07 - review of remainder of labs from Dr Davis cited in 10/07 note B12, cbc, CMP vit D all WNL, could be h/o alcohol, polypharmacy with narcotic and AAP, and VPA although the latter has been stopped. There are no focal findings on exam. CLOX I indicates frontal lobe/executive issues but no other obvious release signs or personality changes or overt disinhibition. Recommend referral to neuropsych testing at [facility] after discharge for further characterization of her deficits as they may be pseudo dementia of depression or medications or both. 10/12 -Cognitive testing currently is not possible, due to the degree of the patient's thought disorganization and psychotic thinking. (5) Anxiety: 10/06/18 - remeron off label, zyprexa off label 10/07/18 - off remeron onto seroquel may have some off label help for sleep and anxiety, supportive therapy on milieu as patient works through some roots of anxiety in divulging her medication diversion 10/09 - Quetiapine 25mg BID at 0900 and 1400 - with prn doses available q4h prn - Continue supportive therapy and engage patient in groups and active coping strategies as able 10/10 - Titrating daytime doses of quetiapine to 50mg BID, continue prn dosing if necessary - Will restart mirtazapine at 15mg this evening to target insomnia and persistent ruminations regarding health and feelings of guilt - If restart of mirtazapine is over-sedating, can consider reducing dose to 7.5mg qHS 10/12 -The patient's underlying anxiety may be exacerbated seizure. She describes a restless, "jumpy" feeling much of the time. She also notes that it is sometimes difficult for her to swallow and her muscles feel "stiff." On examination, today, there is cogwheel rigidity. 10/19 - Titrating quetiapine for mood stabilization/ongoing delusions - off-label benefit for anxiety - Now 50mg qAM, 50mg in afternoon and 250mg qHS - Quetiapine 25mg remains available as needed 10/22 - Continue mirtazapine 15mg qHS - Haloperidol 2.5mg scheduled TID - with 2.5mg prn dosage available q4h (6) Chronic pain: 10/06/18 - continue home dose of morphine (if Remeron not effective for mood consider SNRI desvenlafaxine with caution) 10/07/18 - patient admits to real pain but taking her morphine less than prescribed for many years and up until recently diverting the rest for money, she states she has recently changed this practice but is concerned about how to tell her doctors and the emerging financial strain now that she is no longer diverting her medications. This is a major source of her anxiety, possibly contributing to depression and weight loss as well. - request the weekday team help her to tell her PCM and psychiatrist, and th en to work out possible relationship with pain clinic for [place] or related opiate agonist/antagonist so that her pain can be treated and not diverted if possible. 10/08 -Patient too distraught, psychotic, and disorganized today to address this. 10/09 - Continues to verbalize pain; states it is manageable 10/11 -Patient endorses guilt at times related to selling her prescribed morphine, and this has not yet been addressed with her PCP, who is out of the office until next week. The patient remains to distraught and psychotic to process this, so will revisit it next week. 10/16 -Patient has refused morphine the last 2 days. If she resumes it at some point, may want to use a lower dose to avoid oversedation. 10/17 -Lower morphine dose to 15 mg at bedtime, and continue 15 mg as needed dose, as patient is now receiving scheduled lorazepam for catatonia, and want to avoid [employer] depression and oversedation. -Called Dr. Davis to review morphine misuse and his recs re: ongoing morphine/pain management. Spoke with his nurse, reviewed course of treatment thus far, and gave contact information for him to call if he has any further treatment recommendations. 10/18 - Dr. Davis returned phone call regarding the above concerns - he is agreeable with reduction of HS morphine to 15mg; he reports desire for a pain management referral for ongoing management - As patient has not consistently been utilizing prn Morphine IR, it was suggested the prn be held and replaced with acetaminophen 1,000mg up to 4x daily for pain - He suggested option of Icy Hot or Salonpas for more mild pain to avoid centrally acting medications if not necessary for severity of reported pain - we will see what is formulary - He was informed that patient has reported selling her morphine and is willing to rebuild therapeutic rapport with the patient after she is discharged 10/19 - Called pain management clinic in regard to referral - if consultation during admission would be desired - It is reported PCP would need to make referral to pain management clinic Inventory Assets Strengths: voluntary, good rapport with outpatient MD Needs: support, further medical record reveiw and outpatient f/u Risk Factors Assessment Male: No : Yes Do You Have Access To A Gun?: No Health Problems: Yes Mental Health Diagnoses: Yes Substance Use Disorders: No Previous Attempt: No Family History of Suicide: No Previous Psychiatric Hospitalization: Yes Hopelessness: Yes Smoker: Yes Protective Factors Assessment Worship Beliefs: Yes : No Employed: No (Disability for back pain from [employer]) Good Rapport with Provider: Yes Interval History Identifying Information ALINA STONE is a 58-year-old F who currently lives in [facility], has her own home but presently staying with a friend, who has a history of Bipolar disorder and was admitted on 10/06/18 00:28 on a 201 voluntary status for psychotic depression and suicidality. Her symptoms worsened and progressed to catatonia, and she was placed on a 302 involuntary commitment on 10/16/2018 due to unresponsiveness and inability to participate in or consent to treatment. Her condition has since improved and she was agreeable to sign in voluntarily. Chief Complaint "I need to talk to you. I am better." Review of Systems Notes Constitutional: reports ongoing restlessness, restless legs Cardiovascular: denied Respiratory: denied Gastrointestinal: denied Genitourinary: reports ongoing urinary frequency/urgency Neurological: denied Psychiatric: denies symptoms other than stated above Total of at least 10 systems reviewed, pertinent positives as above and in HPI. Sleep Information Total Hours of Sleep: 6.5 Sleep Comments: incontinent x 2 this shift. Meal Information Percent Meal Consumed - Breakfast: 75 Percent Meal Consumed - Lunch: 60 Percent Meal Consumed - Dinner: 100 Nutrition Comment: boost with lunch Subjective Subjective Patient was seen & assessed and interval progress reviewed with treatment team. Staff reports the patient has continued to take her medications as prescribed, but her behavior has returned to that of acute anxiety, increased restlessness, and verbalized beliefs of "I'm going to ." Pt was seen today on multiple occasions to discuss her progress. Early in the morning, patient had verbalized need to speak with this provider, as she reported ongoing "nightmares" which were bothersome to her. She also stated her urinary frequency/urgency is uncomfortable for her. We discussed plan for medication adjustments, but recommended patient attend community meeting to continue engagement in groups. This provider met with patient following morning groups to discuss medication changes further. She had received prn haloperidol and had reportedly responded well to the medication, verbalizing decrease of anxiety/restlessness and reduced belief that she was facing imminent . Pt verbalized feeling as though quetiapine has not been as effective as haloperidol, and she was agreeable to changing medications at this time. We also discussed concern for her ongoing urinary frequency/urgency and discussed changing from trihexyphenidyl to amantadine for possible EPS. Pt is agreeable to this provider discussing her case with urology to determine other possible recommendations. Pt states she is concerned about ongoing "nightmares", but is unable to describe them as "I'm asleep when they happen." She then states, "what's really getting to me is the demons." Pt does admit that after receiving haloperidol, this is less on her mind. Pt continues to verbalize belief that she is dying, but denies SI. She denies other acute needs today that were not discussed previously. Physical Exam Psychiatric Orientation: alert, oriented to person, oriented to place and cooperative Apperance: appropriately dressed (very thin), appropriately groomed and appeared stated age Eye Contact: good eye contact Motor Behavior: steady gait and station (cautious but stable gait) Demonstrates restlessness when standing, frequently shifting weight to alternate legs Affect: + anxious affect and + constricted affect Mood: + anxious mood ("I'm just worried it's too late for me.") Thought Process: clear/coherent thought process and + perseveration Thought Content: + preoccupation (with her believed impending ) and + cognitive distortions Suicidal Thoughts: denies suicidal thoughts Homicidal Thoughts: denies homicidal thoughts Hallucinations: no auditory hallucinations and no visual hallucinations Cognition: language grossly intact Insight: + impaired insight Judgement: + impaired judgement Vital Signs (Past 24 Hours) Last Vital Signs Temp 36.4 C L 10/22/18 06:50 Pulse 73 10/22/18 06:50 Resp 16 10/22/18 06:50 BP 111/74 10/22/18 06:50 Pulse Ox 98 10/06/18 01:41 See physical exam by Dr. East in the ER 10/05/18 which has been reviewed and accepted for purposes of this H&P Results & Data Current Inpatient Medications Current Inpatient Medications: Current Inpatient Medications Acetaminophen (Tylenol) 1,000 mg PO Q6H PRN PRN Reason: Headache or Minor Fever Stop: 11/17/18 18:47 Last Admin: 10/20/18 16:11 Dose: 1,000 mg Documented by: Al Hydrox/Mg Hydrox/Simethicone (Maalox) 30 ml PO Q4H PRN PRN Reason: GI Upset Stop: 11/05/18 01:21 Last Admin: 10/21/18 17:44 Dose: 30 ml Documented by: Atorvastatin Calcium (Lipitor) 20 mg PO QAM SHUN Stop: 11/05/18 08:59 Last Admin: 10/22/18 08:06 Dose: 20 mg Documented by: Bismuth Subsalicylate (Kaopectate) 15 ml PO PRN PRN PRN Reason: Loose Stool Stop: 11/05/18 01:21 Haloperidol (Haldol) 2.5 mg PO Q4H PRN PRN Reason: psychosis Stop: 11/14/18 15:22 Last Admin: 10/22/18 10:06 Dose: 2.5 mg Documented by: Hydroxyzine HCl (Vistaril) 25 mg PO Q4H PRN PRN Reason: Anxiety Stop: 11/05/18 01:21 Last Admin: 10/12/18 10:04 Dose: 25 mg Documented by: [facility]al) [facility] Stop: 11/21/18 08:59 Last Admin: 10/22/18 08:06 Dose: 50 mg Documented by: Lorazepam (Ativan) 2 mg IM TID PRN PRN Reason: catatonia Stop: 11/16/18 07:54 Lorazepam (Ativan) 1 mg PO TID [facility] Stop: 11/17/18 08:59 Last Admin: 10/22/18 08:05 Dose: 1 mg Documented by: Magnesium Hydroxide (Milk Of Magnesia) 30 ml PO DAILY PRN PRN Reason: Heartburn Stop: 11/05/18 01:21 Last Admin: 10/20/18 11:28 Dose: 30 ml Documented by: Mirtazapine (Remeron) 15 mg PO HS [facility] Stop: 11/09/18 21:59 Last Admin: 10/21/18 21:21 Dose: 15 mg Documented by: Morphine Sulfate (Ms Contin) 15 mg PO [facility] Stop: 10/31/18 21:59 Last Admin: 10/21/18 20:34 Dose: 15 mg Documented by: Multivitamins (Multivitamin Tab) [facility] Stop: 11/05/18 08:59 Last Admin: 10/22/18 08:06 Dose: 1 tab Documented by: Nicotine (Nicoderm Cq) [facility] Stop: 11/05/18 08:59 Last Admin: 10/22/18 08:07 Dose: 21 mg Documented by: Nicotine Polacrilex (Nicorette 2mg) 1 piece MT UD PRN PRN Reason: Nicotine Withdrawal Stop: 11/05/18 01:21 Quetiapine Fumarate (Seroquel) 50 mg PO HS PRN PRN Reason: Insomnia Stop: 11/07/18 21:59 Last Admin: 10/17/18 02:35 Dose: 50 mg Documented by: Quetiapine Fumarate (Seroquel) 25 mg PO Q4H PRN PRN Reason: anxiety/agitation Stop: 11/08/18 11:44 Last Admin: 10/21/18 09:59 Dose: 25 mg Documented by: Quetiapine Fumarate (Seroquel) 50 mg PO BID@0900,1400 SHUN Stop: 11/10/18 08:59 Last Admin: 10/22/18 08:06 Dose: 50 mg Documented by: Quetiapine Fumarate (Seroquel) 200 mg PO HS SHUN Stop: 11/18/18 21:59 Last Admin: 10/21/18 21:21 Dose: 200 mg Documented by: Quetiapine Fumarate (Seroquel) 50 mg PO HS SHUN Stop: 11/18/18 21:59 Last Admin: 10/21/18 21:21 Dose: 50 mg Documented by: Sodium Chloride ([place] Nasal) 1 - 2 sprays NA PRN PRN PRN Reason: Nasal Dryness/Congestion Stop: 11/05/18 01:21 Trihexyphenidyl HCl (Artane) 2 mg PO BID SHUN Stop: 11/11/18 20:59 Last Admin: 10/22/18 08:05 Dose: 2 mg Documented by: Trihexyphenidyl HCl (Artane) 2 mg PO Q6H PRN PRN Reason: EPS Stop: 11/19/18 15:29 Last Admin: 10/21/18 14:05 Dose: 2 mg Documented by: Mental Health & Subst Abuse Tx Psychiatrist Name of Psychiatrist: [facility] Duncan Borden Psychiatrist's Date of Appointment with Psychiatrist: 11/07/18 Time of Appointment with Psychiatrist: 1:35 p.m. Psychiatric Appointment Comment: [address] [facility] [place], [place] Therapist Name of Therapist: [employer] [facility] Duncan Weiner Therapist's Date of Therapist Appointment: 10/15/18 Time of Therapist Appointment: 3:00 p.m. Therapy Appointment Comment: [address] [facility] [place] [facility]ger Name of Hole Digger: None Post Discharge Appointments Primary Care Physician Name Of Family Doctor: [facility] - Dr. Yovany Davis Primary Care Date of Appointment with PCP: 11/05/18 Time of Appointment with PCP: 8:30 a.m. Provider Appointment Comment: [address], [address], [place] Other #1: Name of Aftercare Appointment: [facility] - Margi Santana Phone Number of Aftercare Appointment: [phone] Aftercare Appointment Comment: A resource from your insurance company. No obligation or cost to utilize. Contact Information Discharge Discharge Address: [address] [place] [address] CPT Code CPT Code 68583 (1) Bipolar disorder Active/Remission status: currently active Current bipolar episode type: depressed Current episode severity: severe Psychotic features: with psychotic features Qualified Code(s): F31.5 - Bipolar disorder, current episode depressed, severe, with psychotic features
[2018-10-22] MEDS ORDERED: AMANTADINE HCL SYRUP 50 MG/5 ML UDP PO ONE (12:09)
[2018-10-22] MEDS: HALOPERIDOL 5 MG TAB PO SCH ×2 (14:03→21:34)
[2018-10-22] MEDS: AMANTADINE HCL 100 MG CAPSULE PO SCH (21:34)
[2018-10-22] MEDS: MIRTAZAPINE TAB 15 MG TAB PO SCH (21:35)
[2018-10-22] MEDS: MoRPHine SULFATE CR 15 MG TABCR PO SCH (21:35)
[2018-10-22] MEDS ORDERED: QUETIAPINE FUMARATE 100 MG TABLET PO SCH (22:00)
[2018-10-23] MEDS: LORazepam 1 MG TAB PO SCH ×2 (07:32→13:52)
[2018-10-23] MEDS: HALOPERIDOL 5 MG TAB PO SCH ×3 (07:33→21:12)
[2018-10-23] MEDS: lamoTRIgine 25 MG TAB PO SCH (07:34)
[2018-10-23] MEDS: NICOTINE 21 MG/24 HR TDSY TD SCH (07:35)
[2018-10-23] MEDS: AMANTADINE HCL 100 MG CAPSULE PO SCH ×3 (07:35→21:12)
[2018-10-23] MEDS: MULTIVITAMIN TAB PO SCH (07:35)
[2018-10-23] MEDS: ATORVASTATIN 20 MG TAB PO SCH (07:35)
[2018-10-23] MEDS: TOLTERODINE TARTRATE 2 MG TAB PO SCH ×2 (09:42→21:12)
--- NOTE | 2018-10-23 11:31 | Psychiatric Progress Note ---
Date of Service October 23, 2018 Impression / Recommendations Impression 58y/o female with bipolar disorder who presented with depression, anxiety, and SI in the context of poor p.o. intake, underweight with BMI of 15.4, and perseveration on delusions that she is going to at any moment, consistently stating she will not make it through the day. She had just been discharged from [facility] [place] 5 days prior to admission, where she was treated for similar symptoms, but was noncompliant with medications after discharge, not believing she needed them. Multiple medication changes have been made to address mood, anxiety, psychosis, and sleep: Initially Depakote was discontinued, olanzapine 10 mg at bedtime continued, and mirtazapine started; but due to concerns for akathisia, olanzapine was discontinued in favor of quetiapine, and lamotrigine was started for bipolar depression. Her mood, psychosis, and anxiety worsened, she refused medications for several days, tried to leave the unit, was not eating or drinking and lost weight (BMI 15.1), was not able to participate in treatment or respond to staff, and ultimately had to be placed on a 302 involuntary commitment on 10/16/2018 given her inability to to give informed consent for treatment and the potential need to inject her with benzodiazepines to treat catatonia. She is improved briefly with the addition of lorazepam, and was better able to participate in treatment - signing back in voluntarily prior to expiration of her involuntary commitment. As patient's condition has been worsening, medication adjustments were recently made - favoring haloperidol (scheduled 2.5mg TID) over quetiapine, to which response had been limited. Inpatient treatment remains medically necessary due to the severity of her symptoms, and ability to provide for her own basic needs without inpatient level of care, and risk for harm to herself if discharged. (1) Suicidal ideation: 10/06 and 10/07 - inpatient is least restrictive and most appropriate setting for care given multiple risk factors, passive SI, hopelessness, pain, poor sleep, restlessness. 10/08 -patient endorsing suicidal thoughts with a plan to starve herself, and reports that she has been restricting intake with unknown amount of weight loss. She is underweight with BMI 15.4. Continue to monitor p.o. intake and encourage good nutrition. 10/09 - Pt denies active SI, but continues to believe that she is "reaching the end" and that is imminent, which further contributes to her anxiety 10/11 -today patient is reporting to harm herself, and states that she would "probably" tried to end her life if she were not in the hospital. 10/12 - The patient reports today that she does not feel that it will be necessary for her to commit suicide because she is to be put to in the morning by lethal injection. 10/16 -patient is eating very little, not drinking, stating alternatively that she will at any moment or that she is already . 10/17- Mood, SI, and psychosis improving. (2) Bipolar disorder: 10/06 - She had been stable for many years on Zyprexa +/- Depakote and trazodone although occasional low moods often seasonally mediated and anxiety at times failing Cymbalta due to PANIAGUA's. Given this history I would like to keep her on a mood stabilizer but am concerned about hair loss and tremor and possible compounded cognitive impairment with Depakote so I held this, so will keep Zyprexa 10mg for now.stop Depakote, continue Zyprexa 10mg, start Remeron 15mg/hs 10/07 - stopped zyprexa to r/o akathisia (5mg tonight then off), returned to Seroquel (due to sedation stopped Remeron as well) 100mg tonight then 200mg thereafter with hope would stabilize, help depression and off label help sleep and anxiety, initial target dose if 200mg watching to assure not too fatigued as per last trial t 300mg when she had enuresis and daytime fatigue. She is now at lowered dose of morphine so fatigue and oversedation less likely Strongly consider Lamictal for mood stabilization, due to h/o break through depression on Seroquel in the noel, titration briefly discussed today but patient was too overwhelmed to consent. 10/08 -Continue quetiapine 200 mg at bedtime, and at 50 mg as needed dose for sleep. Reviewed the risks, benefits, and side effects of lamotrigine, which was also reviewed with her yesterday, including the risk of serious rash/SJS. She agreed to a trial, and will start 25 mg daily. -Order fasting labs for monitoring on an atypical antipsychotic. 10/09 - Planning to initiate quetiapine 25mg BID at 0900 and 1400; will order 25mg q4h prn for anxiety/disorganized thoughts. Will continue quetiapine 200mg at bedtime with 50mg additional dose as needed for sleep. - Will attempt to get fasting labs tomorrow morning, as patient had eaten overnight and the blood test could not be completed today - Continue lamotrigine 25mg daily 10/10 - Will titrate daytime doses of quetiapine to 50mg BID with continued 200mg/50mg bedtime dosing - Continue lamotrigine 25mg daily - Will restart mirtazapine at 15mg as patient continues to experience insomnia, receiving only 1.75 hours of sleep last evening 10/11 -Continue current medications; quetiapine just increased yesterday with scheduled dosing throughout the day as well as as needed dose; continue to titrate to effective dose. Sleep improved with resumption of mirtazapine. 10/13 hopefully can titrate Seroquel tomorrow. 10/14--doesn't appear that benefiting much from Seroquel, hesitant to titrate given sedation, tremor and gait. Appetite remains poor. Refused meds this am. Was losing weight on Zyprexa. Trial of a typical agent (haldol) may be appropriate, will defer to primary team. will note that if patient continues to refuse PO medications, she should receive meds over objection as or serious injury to self would come from psychotic disorder resulting in poor PO and she will not improve without such medication. Refusal of meds and level of psychosis would be indication for involuntary commitment. 10/15--patient refusing medications and not answering questions today. She did converse with the director of social media marketing and was able to eat, but was uncooperative with my attempt to interview her. She has not received quetiapine in 2 days. I will order haloperidol as needed, and consider a 302 involuntary commitment and medications over objection if she does not improve in the next 24 hours. -Patient appears more altered today. She has not had labs since 10/05/2018, so will order a CMP, CBC, and UA to rule out electrolyte abnormalities, UTI, and look for signs of infection or other medical issues that could contribute to deteriorating mental status/delirium. -Consider EEG. 10/16--patient refusing medications for the third day in a row, not eating very much, refusing to drink, and attempted to leave the unit last night. She is refusing all groups, and will not engage or talk with staff. She continues to state that she believes she is , or will at any moment. She has been in her bed most of the time, and does not respond to questions or commands. CBC, CMP, and UA were checked yesterday and were notable for elevated WBC 11.78, hemoglobin 17.2, hematocrit 47.2, elevated MCH and MCV HC. Total bilirubin was elevated at 1.1, and remainder of CMP was normal. UA showed 1+ ketones. Vital signs were normal this morning. Lab results do not indicate any active medical conditions contributing to her altered mental status and decreased responsiveness. Ketonuria does indicate starvation, and if she is already underweight with a BMI of 15.1, she is at risk if she continues to refuse to eat. Current symptoms are consistent with catatonia and I would like to do a lorazepam challenge; 1 mg p.o. stat was ordered, but the patient is refusing to take oral medications. We will need to use IM Lorazepam. As she is severely depressed, psychotic, catatonic, unable to appreciate the risks and benefits of treatment, and is refusing potentially life-saving treatment including medications, fluids, and food, we will proceed with a 302 involuntary commitment. 10/17--catatonia significantly improved, we will schedule Lorazepam 2 mg 3 times daily and taper as tolerated. --Continue lamotrigine, quetiapine, mirtazapine, and trihexyphenidyl as ordered, which she is now taking willingly. --Encourage group attendance and participation. Work on addressing stressors, including financial concerns, housing, and supports. Scheduled family meeting with son. --Work on discharge planning. 10/18 - Pt condition mildly worse today; however, still improved overall since admission - Due to concerns for sedation, lorazepam was reduced to 1mg TID - Continue lamotrigine, quetiapine, mirtazapine, and trihexyphenidyl as above - Son stopped in for family meeting later this morning 10/19 - Titrate HS dose of quetiapine to 250mg; continue quetiapine 50mg BID - Continue lorazepam 1mg TID - Continue lamotrigine, mirtazapine, and trihexyphenidyl 10/20 -Continue current medications. Frequent reassurance required, encourage patient to participate in groups and activities. 10/21 -Increase lamotrigine to 50 mg daily tomorrow, and in 2 more weeks can increase to 100 mg daily. -Limit as needed doses of Artane due to dry mouth and excessive thirst. 10/22 - Seroquel tapered to 100mg qHS and plans to utilize haloperidol as prominent antipsychotic medication based on response to prns - Haloperidol ordered 2.5mg TID to initiate, with continued availability to 2.5mg q4h prn - Discontinued Artane due to concern for ongoing excessive thirst contributing to urinary frequency/urgency - Initiated amantadine, 50mg initial dose with 100mg BID scheduled thereafter for EPS - May need to consider re-trail of lorazepam challenge if patient's condition does not improve with these adjustments 10/23 - Decrease quetiapine to 50mg HS and continue haloperidol 2.5mg tid and prn. Continue lorazepam mg tid. (3) Akathisia: 10/06/18 - possibly neuroleptic induced, worsened by anxiety. Working theory is lowered dose of morphine uncovered akathisia caused by Zyprexa need to gather more history to consider need for AAP vs. mood stabilizer or both and prior response to other meds, would like to avoid anticholinergics given cognitive concerns 10/07/18 - she is having insomnia, needs mood stabilization and antidepressant, she did have some fatigue on 300mg but now on lowered dose of morphine. There were possibly two instances of enuresis but 200mg consistently was never tested over longer term for treatment, and given akathisia do not wish to use Clozaril and other AAP ongoing likelihood of akathisia so will retrial Seroquel titration to 200mg watching energy, and monitoring for nighttime urination. Patient affirms understanding history and current situation reviewed and she agrees with this plan as it supports multiple symptoms and leads to reduction of polypharmacy. 10/09 - Unclear if tremor and restlessness is true akathisia or related to anxiety - as it is not constant and appears to be worse when anxiety is highest - Continue to observe, but will refrain from treating with additional medication at this time - No evidence of cogwheeling or dystonia on physical exam 10/13 --EPS resolved with Artane 10/12 -Cogwheeling is present today on physical examination. The patient was given diphenhydramine 25 mg IM and is being observed. Her symptoms do appear to be consistent with akathisia, although they do appear to wax and wane. 10/16 -although cogwheeling and tremulousness continue, we are avoiding deliriogenic medications given her worsening mental status. 10/17--resume trihexyphenidyl 2 mg twice daily. 10/22 - Discontinued trihexyphenidyl - Initiated amantadine 100mg BID, beginning with 50mg dose this afternoon 10/23 - Continue amantadine and increase to 100mg tid (4) Cognitive disorder: 10/06/18 - I am concerned about her cognition as her overall MMSE-like assessment was near normal outside of a few points, but her CLOX was notably poor indicating poor executive function concerns. Again I will need to review PCM's records to see what labs and studies have been done to r/u reversible causes of cognitive decline. TSH WNL, LFTs WNL. Furthermore morphine and zyprexa and residual VPA can contribute to poor cognition. Will add MVI for now to support. 10/07 - review of remainder of labs from Dr Davis cited in 10/07 note B12, cbc, CMP vit D all WNL, could be h/o alcohol, polypharmacy with narcotic and AAP, and VPA although the latter has been stopped. There are no focal findings on exam. CLOX I indicates frontal lobe/executive issues but no other obvious release signs or personality changes or overt disinhibition. Recommend referral to neuropsych testing at [facility] after discharge for further characterization of her deficits as they may be pseudo dementia of depression or medications or both. 10/12 -Cognitive testing currently is not possible, due to the degree of the patient's thought disorganization and psychotic thinking. 10/23 - Refer to [facility] for cognitive and neuropsych testing (5) Anxiety: 10/06/18 - remeron off label, zyprexa off label 10/07/18 - off remeron onto seroquel may have some off label help for sleep and anxiety, supportive therapy on milieu as patient works through some roots of anxiety in divulging her medication diversion 10/09 - Quetiapine 25mg BID at 0900 and 1400 - with prn doses available q4h prn - Continue supportive therapy and engage patient in groups and active coping strategies as able 10/10 - Titrating daytime doses of quetiapine to 50mg BID, continue prn dosing if necessary - Will restart mirtazapine at 15mg this evening to target insomnia and persistent ruminations regarding health and feelings of guilt - If restart of mirtazapine is over-sedating, can consider reducing dose to 7.5mg qHS 10/12 -The patient's underlying anxiety may be exacerbated seizure. She describes a restless, "jumpy" feeling much of the time. She also notes that it is sometimes difficult for her to swallow and her muscles feel "stiff." On examination, today, there is cogwheel rigidity. 10/19 - Titrating quetiapine for mood stabilization/ongoing delusions - off-label benefit for anxiety - Now 50mg qAM, 50mg in afternoon and 250mg qHS - Quetiapine 25mg remains available as needed 10/22 - Continue mirtazapine 15mg qHS - Haloperidol 2.5mg scheduled TID - with 2.5mg prn dosage available q4h (6) Chronic pain: 10/06/18 - continue home dose of morphine (if Remeron not effective for mood consider SNRI desvenlafaxine with caution) 10/07/18 - patient admits to real pain but taking her morphine less than prescribed for many years and up until recently diverting the rest for money, she states she has recently changed this practice but is concerned about how to tell her doctors and the emerging financial strain now that she is no longer diverting her medications. This is a major source of her anxiety, possibly contributing to depression and weight loss as well. - request the weekday team help her to tell her PCM and psychiatrist, and then to work out possible relationship with pain clinic for [place] or related opiate agonist/antagonist so that her pain can be treated and not diverted if possible. 10/08 -Patient too distraught, psychotic, and disorganized today to address this. 10/09 - Continues to verbalize pain; states it is manageable 10/11 -Patient endorses guilt at times related to selling her prescribed morphine, and this has not yet been addressed with her PCP, who is out of the office until next week. The patient remains to distraught and psychotic to process this, so will revisit it next week. 10/16 -Patient has refused morphine the last 2 days. If she resumes it at some point, may want to use a lower dose to avoid oversedation. 10/17 -Lower morphine dose to 15 mg at bedtime, and continue 15 mg as needed dose, as patient is now receiving scheduled lorazepam for catatonia, and want to avoid [employer] depression and oversedation. -Called Dr. Davis to review morphine misuse and his recs re: ongoing morphine/pain management. Spoke with his nurse, reviewed course of treatment thus far, and gave contact information for him to call if he has any further treatment recommendations. 10/18 - Dr. Davis returned phone call regarding the above concerns - he is agreeable with reduction of HS morphine to 15mg; he reports desire for a pain m anagement referral for ongoing management - As patient has not consistently been utilizing prn Morphine IR, it was suggested the prn be held and replaced with acetaminophen 1,000mg up to 4x daily for pain - He suggested option of Icy Hot or Salonpas for more mild pain to avoid centrally acting medications if not necessary for severity of reported pain - we will see what is formulary - He was informed that patient has reported selling her morphine and is willing to rebuild therapeutic rapport with the patient after she is discharged 10/19 - Called pain management clinic in regard to referral - if consultation during admission would be desired - It is reported PCP would need to make referral to pain management clinic Inventory Assets Strengths: voluntary, good rapport with outpatient MD Needs: support, further medical record reveiw and outpatient f/u Risk Factors Assessment Male: No : Yes Do You Have Access To A Gun?: No Health Problems: Yes Mental Health Diagnoses: Yes Substance Use Disorders: No Previous Attempt: No Family History of Suicide: No Previous Psychiatric Hospitalization: Yes Hopelessness: Yes Smoker: Yes Protective Factors Assessment [employer] Beliefs: Yes : No Employed: No (Disability for back pain from [employer]) Good Rapport with Provider: Yes Interval History Identifying Information ALINA STONE is a 58-year-old F who currently lives in [facility] [place], has her own home but presently staying with a friend, who has a history of Bipolar disorder and was admitted on 10/06/18 00:28 on a 201 voluntary status for psychotic depression and suicidality. Her symptoms worsened and progressed to catatonia, and she was placed on a 302 involuntary commitment on 10/16/2018 due to unresponsiveness and inability to participate in or consent to treatment. Her condition has since improved and she was agreeable to sign in voluntarily. Chief Complaint "Caught in a vicious cycle". Review of Systems Sleep Information Total Hours of Sleep: 8.25 Sleep Comments: incontinent x 2 this shift. Meal Information Percent Meal Consumed - Breakfast: 75 Percent Meal Consumed - Lunch: 75 Percent Meal Consumed - Dinner: 100 Nutrition Comment: boost with lunch Subjective Subjective Patient was seen & assessed and interval progress reviewed with nursing and social work. Staff report the patient continues to struggle with high anxiety and restlessness, ruminating on fears that she will , and asking the same questions repeatedly. She requires frequent redirection and reassurance. At times she becomes very distraught and states that she is going to any moment or is already . She can be very persistent in her requests to meet with staff, and has had difficulty tolerating groups. She was reminded to toilet frequently, and had no episodes of incontinence last evening. Yesterday cross titration from quetiapine to haloperidol was initiated, as she appeared to respond well to haloperidol prns. On my assessment, she was seen in her room where she is lying down in bed but awake. She states that she is struggling with anxiety and restlessness, with intrusive, ruminative thoughts about . Her thoughts revolve around fears that she will at any moment, her son will have a heart attack, and seeing him. She reports ongoing restlessness. She reports poor sleep which she attributes to it being hot in her room, and impaired appetite with poor p.o. intake. Physical Exam Psychiatric Orientation: alert and cooperative Apperance: appropriately dressed; + did not appear stated age Appears significantly older than stated age. Lying in bed in NAD. Eye Contact: good eye contact Motor Behavior: no abnormal motor movements short gait Speech: normal rate/rhythm/volume of speech Affect: + anxious affect, + constricted affect and mood congruent with affect Mood: + anxious mood Thought Process: + perseveration Thought Content: + paranoid, + delusions, + persecution, + hopelessness and + guilt Suicidal Thoughts: denies suicidal thoughts But believes she will at any moment, and sometimes that she is already . Homicidal Thoughts: denies homicidal thoughts Hallucinations: no auditory hallucinations and no visual hallucinations Cognition: language grossly intact; + recent memory not intact and + attention not intact Insight: + impaired insight Judgement: + impaired judgement Vital Signs (Past 24 Hours) Last Vital Signs Temp 36.6 C 10/23/18 06:00 Pulse 81 10/23/18 06:47 Resp 18 10/23/18 06:00 BP 104/71 10/23/18 06:47 Pulse Ox 98 10/06/18 01:41 See physical exam by Dr. East in the ER 10/05/18 which has been reviewed and accepted for purposes of this H&P Results & Data Laboratory Results Laboratory Results - last 24 hr 10/22/18 07:27 POC Glucose 108 H Current Inpatient Medications Current Inpatient Medications: Current Inpatient Medications Acetaminophen (Tylenol) 1,000 mg PO Q6H PRN PRN Reason: Headache or Minor Fever Stop: 11/17/18 18:47 Last Admin: 10/20/18 16:11 Dose: 1,000 mg Documented by: Al Hydrox/Mg Hydrox/Simethicone (Maalox) 30 ml PO Q4H PRN PRN Reason: GI Upset Stop: 11/05/18 01:21 Last Admin: 10/21/18 17:44 Dose: 30 ml Documented by: Amantadine HCl (Symmetrel) 100 mg PO BID [facility] Stop: 11/21/18 20:59 Last Admin: 10/23/18 07:35 Dose: 100 mg Documented by: Atorvastatin Calcium (Lipitor) 20 mg PO QAM [facility] Stop: 11/05/18 08:59 Last Admin: 10/23/18 07:35 Dose: 20 mg Documented by: Bismuth Subsalicylate (Kaopectate) 15 ml PO PRN PRN PRN Reason: Loose Stool Stop: 11/05/18 01:21 Haloperidol (Haldol) 2.5 mg PO Q4H PRN PRN Reason: psychosis Stop: 11/14/18 15:22 Last Admin: 10/22/18 10:06 Dose: 2.5 mg Documented by: Haloperidol (Haldol) 2.5 mg PO TID [facility] Stop: 11/21/18 13:59 Last Admin: 10/23/18 07:33 Dose: 2.5 mg Documented by: Hydroxyzine HCl (Vistaril) 25 mg PO Q4H PRN PRN Reason: Anxiety Stop: 11/05/18 01:21 Last Admin: 10/12/18 10:04 Dose: 25 mg Documented by: Lamotrigine (Lamictal) 50 mg PO QAM [facility] Stop: 11/21/18 08:59 Last Admin: 10/23/18 07:34 Dose: 50 mg Documented by: Lorazepam (Ativan) 2 mg IM TID PRN PRN Reason: catatonia Stop: 11/16/18 07:54 Lorazepam (Ativan) 1 mg PO TID [facility] Stop: 11/17/18 08:59 Last Admin: 10/23/18 07:32 Dose: 1 mg Documented by: Magnesium Hydroxide (Milk Of Magnesia) 30 ml PO DAILY PRN PRN Reason: Heartburn Stop: 11/05/18 01:21 Last Admin: 10/20/18 11:28 Dose: 30 ml Documented by: Mirtazapine (Remeron) 15 mg PO [facility] Stop: 11/09/18 21:59 Last Admin: 10/22/18 21:35 Dose: 15 mg Documented by: Morphine Sulfate (Ms Contin) 15 mg PO [facility] Stop: 10/31/18 21:59 Last Admin: 10/22/18 21:35 Dose: 15 mg Documented by: Multivitamins (Multivitamin Tab) 1 tab PO [facility] Stop: 11/05/18 08:59 Last Admin: 10/23/18 07:35 Dose: 1 tab Documented by: Nicotine (Nicoderm Cq) 21 mg TD [facility] Stop: 11/05/18 08:59 Last Admin: 10/23/18 07:35 Dose: 21 mg Documented by: Nicotine Polacrilex (Nicorette 2mg) 1 piece MT UD PRN PRN Reason: Nicotine Withdrawal Stop: 11/05/18 01:21 Quetiapine Fumarate (Seroquel) 100 mg PO [facility] Stop: 11/21/18 21:59 Last Admin: 10/22/18 21:35 Dose: 100 mg Documented by: Sodium Chloride ([place] Nasal) 1 - 2 sprays NA PRN PRN PRN Reason: Nasal Dryness/Congestion Stop: 11/05/18 01:21 Tolterodine Tartrate (Detrol) 2 mg PO BID [facility] Stop: 11/22/18 09:29 Last Admin: 10/23/18 09:42 Dose: 2 mg Documented by: Mental Health & Subst Abuse Tx Psychiatrist [facility] [facility] Date of Appointment with Psychiatrist: 11/07/18 Time of Appointment with Psychiatrist: 1:35 p.m. Psychiatric Appointment Comment[facility] [address] [facility] [place] [facility] Date of Therapist Appointment: 11/01/18 Time of Therapist Appointment: 2:00 p.m. Therapy Appointment Comment: [address] [facility] [place] [facility] Name of Attorney: None Post Discharge Appointments Primary Care Physician Name Of Family Doctor: [facility] - Dr. Yovany Davis Primary Care Date of Appointment with PCP: 11/05/18 Time of Appointment with PCP: 8:30 a.m. Provider Appointment Comment: [address], [address], [place] Contact Information Discharge Discharge Address: [address] [place] [address] CPT Code CPT Code 61834 (1) Bipolar disorder Active/Remission status: currently active Current bipolar episode type: dep ressed Current episode severity: severe Psychotic features: with psychotic features Qualified Code(s): F31.5 - Bipolar disorder, current episode depressed, severe, with psychotic features
[2018-10-23] MEDS: MIRTAZAPINE TAB 15 MG TAB PO SCH (21:12)
[2018-10-23] MEDS: MoRPHine SULFATE CR 15 MG TABCR PO SCH (21:12)
[2018-10-23] MEDS: LORazepam 0.5 MG TAB PO SCH (21:12)
[2018-10-23] MEDS: QUETIAPINE FUMARATE 100 MG TABLET PO SCH (21:12)
[2018-10-24] MEDS: LORazepam 0.5 MG TAB PO SCH ×3 (09:20→21:21)
[2018-10-24] MEDS: TOLTERODINE TARTRATE 2 MG TAB PO SCH ×2 (09:20→21:16)
[2018-10-24] MEDS: HALOPERIDOL 5 MG TAB PO SCH ×3 (09:20→21:21)
[2018-10-24] MEDS: MULTIVITAMIN TAB PO SCH (09:20)
[2018-10-24] MEDS: AMANTADINE HCL 100 MG CAPSULE PO SCH ×3 (09:20→21:17)
[2018-10-24] MEDS: lamoTRIgine 25 MG TAB PO SCH (09:21)
[2018-10-24] MEDS: ATORVASTATIN 20 MG TAB PO SCH (09:21)
[2018-10-24] MEDS: NICOTINE 21 MG/24 HR TDSY TD SCH (09:21)
--- NOTE | 2018-10-24 15:26 | Psychiatric Progress Note ---
Date of Service October 24, 2018 Impression / Recommendations Impression 58y/o female with bipolar disorder who presented with depression, anxiety, and SI in the context of poor p.o. intake, underweight with BMI of 15.4, and perseveration on delusions that she is going to at any moment, consistently stating she will not make it through the day. She [place] [facility] [place] where she was treated for similar symptoms, but was noncompliant with medications after discharge, not believing she needed them. Multiple medication changes have been made to address mood, anxiety, psychosis, and sleep: Initially Depakote was discontinued, olanzapine 10 mg at bedtime continued, and mirtazapine started; but due to concerns for akathisia, olanzapine was discontinued in favor of quetiapine, and lamotrigine was started for bipolar depression. Her mood, psychosis, and anxiety worsened, she refused medications for several days, tried to leave the unit, was not eating or drinking and lost weight (BMI 15.1), was not able to participate in treatment or respond to staff, and ultimately had to be placed on a 302 involuntary commitment on 10/16/2018 given her inability to to give informed consent for treatment and the potential need to inject her with benzodiazepines to treat catatonia. She is improved briefly with the addition of lorazepam, and was better able to participate in treatment - signing back in voluntarily prior to expiration of her involuntary commitment. As patient's condition has been worsening, medication adjustments were recently made - favoring haloperidol (scheduled 2.5mg TID) over quetiapine, to which response had been limited. Inpatient treatment remains medically necessary due to the severity of her symptoms, and ability to provide for her own basic needs without inpatient level of care, and risk for harm to herself if discharged. (1) Suicidal ideation: 10/06 and 10/07 - inpatient is least restrictive and most appropriate setting for care given multiple risk factors, passive SI, hopelessness, pain, poor sleep, restlessness. 10/08 -patient endorsing suicidal thoughts with a plan to starve herself, and reports that she has been restricting intake with unknown amount of weight loss. She is underweight with BMI 15.4. Continue to monitor p.o. intake and encourage good nutrition. 10/09 - Pt denies active SI, but continues to believe that she is "reaching the end" and that is imminent, which further contributes to her anxiety 10/11 -today patient is reporting to harm herself, and states that she would "probably" tried to end her life if she were not in the hospital. 10/12 - The patient reports today that she does not feel that it will be necessary for her to commit suicide because she is to be put to in the morning by lethal injection. 10/16 -patient is eating very little, not drinking, stating alternatively that she will at any moment or that she is already . 10/17- Mood, SI, and psychosis improving. 10/24 - Reporting "I'm suicidal" today; however, states this is more so frustration and inability to go on if her condition does not improve (2) Bipolar disorder: 10/06 - She had been stable for many years on Zyprexa +/- Depakote and trazodone although occasional low moods often seasonally mediated and anxiety at times failing Cymbalta due to PANIAGUA's. Given this history I would like to keep her on a mood stabilizer but am concerned about hair loss and tremor and possible compounded cognitive impairment with Depakote so I held this, so will keep Zyprexa 10mg for now.stop Depakote, continue Zyprexa 10mg, start Remeron 15mg/hs 10/07 - stopped zyprexa to r/o akathisia (5mg tonight then off), returned to Seroquel (due to sedation stopped Remeron as well) 100mg tonight then 200mg thereafter with hope would stabilize, help depression and off label help sleep and anxiety, initial target dose if 200mg watching to assure not too fatigued as per last trial t 300mg when she had enuresis and daytime fatigue. She is now at lowered dose of morphine so fatigue and oversedation less likely Strongly consider Lamictal for mood stabilization, due to h/o break through depression on Seroquel in the noel, titration briefly discussed today but patient was too overwhelmed to consent. 10/08 -Continue quetiapine 200 mg at bedtime, and at 50 mg as needed dose for sleep. Reviewed the risks, benefits, and side effects of lamotrigine, which was also reviewed with her yesterday, including the risk of serious rash/SJS. She agreed to a trial, and will start 25 mg daily. -Order fasting labs for monitoring on an atypical antipsychotic. 10/09 - Planning to initiate quetiapine 25mg BID at 0900 and 1400; will order 25mg q4h prn for anxiety/disorganized thoughts. Will continue quetiapine 200mg at bedtime with 50mg additional dose as needed for sleep. - Will attempt to get fasting labs tomorrow morning, as patient had eaten overnight and the blood test could not be completed today - Continue lamotrigine 25mg daily 10/10 - Will titrate daytime doses of quetiapine to 50mg BID with continued 200mg/50mg bedtime dosing - Continue lamotrigine 25mg daily - Will restart mirtazapine at 15mg as patient continues to experience insomnia, receiving only 1.75 hours of sleep last evening 10/11 -Continue current medications; quetiapine just increased yesterday with scheduled dosing throughout the day as well as as needed dose; continue to titrate to effective dose. Sleep improved with resumption of mirtazapine. 10/13 hopefully can titrate Seroquel tomorrow. 10/14--doesn't appear that benefiting much from Seroquel, hesitant to titrate given sedation, tremor and gait. Appetite remains poor. Refused meds this am. Was losing weight on Zyprexa. Trial of a typical agent (haldol) may be appropriate, will defer to primary team. will note that if patient continues to refuse PO medications, she should receive meds over objection as or serious injury to self would come from psychotic disorder resulting in poor PO and she will not improve without such medication. Refusal of meds and level of psychosis would be indication for involuntary commitment. 10/15--patient refusing medications and not answering questions today. She did converse with the nursing home social worker and was able to eat, but was uncooperative with my attempt to interview her. She has not received quetiapine in 2 days. I will order haloperidol as needed, and consider a 302 involuntary commitment and medications over objection if she does not improve in the next 24 hours. -Patient appears more altered today. She has not had labs since 10/05/2018, so will order a CMP, CBC, and UA to rule out electrolyte abnormalities, UTI, and look for signs of infection or other medical issues that could contribute to deteriorating mental status/delirium. -Consider EEG. 10/16--patient refusing medications for the third day in a row, not eating very much, refusing to drink, and attempted to leave the unit last night. She is refusing all groups, and will not engage or talk with staff. She continues to state that she believes she is , or will at any moment. She has been in her bed most of the time, and does not respond to questions or commands. CBC, CMP, and UA were checked yesterday and were notable for elevated WBC 11.78, hemoglobin 17.2, hematocrit 47.2, elevated MCH and MCV HC. Total bilirubin was elevated at 1.1, and remainder of CMP was normal. UA showed 1+ ketones. Vital signs were normal this morning. Lab results do not indicate any active medical conditions contributing to her altered mental status and decreased responsiveness. Ketonuria does indicate starvation, and if she is already underweight with a BMI of 15.1, she is at risk if she continues to refuse to eat. Current symptoms are consistent with catatonia and I would like to do a lorazepam challenge; 1 mg p.o. stat was ordered, but the patient is refusing to take oral medications. We will need to use IM Lorazepam. As she is severely depressed, psychotic, catatonic, unable to appreciate the risks and benefits of treatment, and is refusing potentially life-saving treatment including medications, fluids, and food, we will proceed with a 302 involuntary commitment. 10/17--catatonia significantly improved, we will schedule Lorazepam 2 mg 3 times daily and taper as tolerated. --Continue lamotrigine, quetiapine, mirtazapine, and trihexyphenidyl as ordered, which she is now taking willingly. --Encourage group attendance and participation. Work on addressing stressors, including financial concerns, housing, and supports. Scheduled family meeting with son. --Work on discharge planning. 10/18 - Pt condition mildly worse today; however, still improved overall since admission - Due to concerns for sedation, lorazepam was reduced to 1mg TID - Continue lamotrigine, quetiapine, mirtazapine, and trihexyphenidyl as above - Son stopped in for family meeting later this morning 10/19 - Titrate HS dose of quetiapine to 250mg; continue quetiapine 50mg BID - Continue lorazepam 1mg TID - Continue lamotrigine, mirtazapine, and trihexyphenidyl 10/20 -Continue current medications. Frequent reassurance required, encourage patient to participate in groups and activities. 10/21 -Increase lamotrigine to 50 mg daily tomorrow, and in 2 more weeks can increase to 100 mg daily. -Limit as needed doses of Artane due to dry mouth and excessive thirst. 10/22 - Seroquel tapered to 100mg qHS and plans to utilize haloperidol as prominent antipsychotic medication based on response to prns - Haloperidol ordered 2.5mg TID to initiate, with continued availability to 2.5mg q4h prn - Discontinued Artane due to concern for ongoing excessive thirst contributing to urinary frequency/urgency - Initiated amantadine, 50mg initial dose with 100mg BID scheduled thereafter for EPS - May need to consider re-trail of lorazepam challenge if patient's condition does not improve with these adjustments 10/23 - Decrease quetiapine to 50mg HS and continue haloperidol 2.5mg tid and prn. Continue lorazepam mg tid. 10/24 - Discontinue quetiapine - Will order second dose of 2.5mg haloperidol to be available at bedtime if needed. - Lorazepam increased to 1.5mg TID yesterday (3) Akathisia: 10/06/18 - possibly neuroleptic induced, worsened by anxiety. Working theory is lowered dose of morphine uncovered akathisia caused by Zyprexa need to gather more history to consider need for AAP vs. mood stabilizer or both and prior response to other meds, would like to avoid anticholinergics given cognitive concerns 10/07/18 - she is having insomnia, needs mood stabilization and antidepressant, she did have some fatigue on 300mg but now on lowered dose of morphine. There were possibly two instances of enuresis but 200mg consistently was never tested over longer term for treatment, and given akathisia do not wish to use Clozaril and other AAP ongoing likelihood of akathisia so will retrial Seroquel titration to 200mg watching energy, and monitoring for nighttime urination. Patient affirms understanding history and current situation reviewed and she agrees with this plan as it supports multiple symptoms and leads to reduction of polypharmacy. 10/09 - Unclear if tremor and restlessness is true akathisia or related to anxiety - as it is not constant and appears to be worse when anxiety is highest - Continue to observe, but will refrain from treating with additional medication at this time - No evidence of cogwheeling or dystonia on physical exam 10/13 --EPS resolved with Artane 10/12 -Cogwheeling is present today on physical examination. The patient was given diphenhydramine 25 mg IM and is being observed. Her symptoms do appear to be consistent with akathisia, although they do appear to wax and wane. 10/16 -although cogwheeling and tremulousness continue, we are avoiding deliriogenic medications given her worsening mental status. 10/17--resume trihexyphenidyl 2 mg twice daily. 10/22 - Discontinued trihexyphenidyl - Initiated amantadine 100mg BID, beginning with 50mg dose this afternoon 10/23 - Continue amantadine and increase to 100mg tid 10/24 - Continue as above (4) Cognitive disorder: 10/06/18 - I am concerned about her cognition as her overall MMSE-like assessment was near normal outside of a few points, but her CLOX was notably poor indicating poor executive function concerns. Again I will need to review PCM's records to see what labs and studies have been done to r/u reversible causes of cognitive decline. TSH WNL, LFTs WNL. Furthermore morphine and zyprexa and residual VPA can contribute to poor cognition. Will add MVI for now to support. 10/07 - review of remainder of labs from Dr Davis cited in 10/07 note B12, cbc, CMP vit D all WNL, could be h/o alcohol, polypharmacy with narcotic and AAP, and VPA although the latter has been stopped. There are no focal findings on exam. CLOX I indicates frontal lobe/executive issues but no other obvious release signs or personality changes or overt disinhibition. Recommend referral to neuropsych testing at [facility] after discharge for further characterization of her deficits as they may be pseudo dementia of depression or medications or both. 10/12 -Cognitive testing currently is not possible, due to the degree of the polo ent's thought disorganization and psychotic thinking. 10/23 - Refer to [facility] for cognitive and neuropsych testing (5) Anxiety: 10/06/18 - remeron off label, zyprexa off label 10/07/18 - off remeron onto seroquel may have some off label help for sleep and anxiety, supportive therapy on milieu as patient works through some roots of anxiety in divulging her medication diversion 10/09 - Quetiapine 25mg BID at 0900 and 1400 - with prn doses available q4h prn - Continue supportive therapy and engage patient in groups and active coping strategies as able 10/10 - Titrating daytime doses of quetiapine to 50mg BID, continue prn dosing if necessary - Will restart mirtazapine at 15mg this evening to target insomnia and persistent ruminations regarding health and feelings of guilt - If restart of mirtazapine is over-sedating, can consider reducing dose to 7.5mg qHS 10/12 -The patient's underlying anxiety may be exacerbated seizure. She describes a restless, "jumpy" feeling much of the time. She also notes that it is sometimes difficult for her to swallow and her muscles feel "stiff." On examination, today, there is cogwheel rigidity. 10/19 - Titrating quetiapine for mood stabilization/ongoing delusions - off-label benefit for anxiety - Now 50mg qAM, 50mg in afternoon and 250mg qHS - Quetiapine 25mg remains available as needed 10/22 - Continue mirtazapine 15mg qHS - Haloperidol 2.5mg scheduled TID - with 2.5mg prn dosage available q4h (6) Chronic pain: 10/06/18 - continue home dose of morphine (if Remeron not effective for mood consider SNRI desvenlafaxine with caution) 10/07/18 - patient admits to real pain but taking her morphine less than prescribed for many years and up until recently diverting the rest for money, she states she has recently changed this practice but is concerned about how to tell her doctors and the emerging financial strain now that she is no longer diverting her medications. This is a major source of her anxiety, possibly contributing to depression and weight loss as well. - request the weekday team help her to tell her PCM and psychiatrist, and then to work out possible relationship with pain clinic for [place] or related opiate agonist/antagonist so that her pain can be treated and not diverted if possible. 10/08 -Patient too distraught, psychotic, and disorganized today to address this. 10/09 - Continues to verbalize pain; states it is manageable 10/11 -Patient endorses guilt at times related to selling her prescribed morphine, and this has not yet been addressed with her PCP, who is out of the office until next week. The patient remains to distraught and psychotic to process this, so will revisit it next week. 10/16 -Patient has refused morphine the last 2 days. If she resumes it at some point, may want to use a lower dose to avoid oversedation. 10/17 -Lower morphine dose to 15 mg at bedtime, and continue 15 mg as needed dose, as patient is now receiving scheduled lorazepam for catatonia, and want to avoid [employer] depression and oversedation. -Called Dr. Davis to review morphine misuse and his recs re: ongoing mo rphine/pain management. Spoke with his nurse, reviewed course of treatment thus far, and gave contact information for him to call if he has any further treatment recommendations. 10/18 - Dr. Davis returned phone call regarding the above concerns - he is agreeable with reduction of HS morphine to 15mg; he reports desire for a pain management referral for ongoing management - As patient has not consistently been utilizing prn Morphine IR, it was suggested the prn be held and replaced with acetaminophen 1,000mg up to 4x daily for pain - He suggested option of Icy Hot or Salonpas for more mild pain to avoid centrally acting medications if not necessary for severity of reported pain - we will see what is formulary - He was informed that patient has reported selling her morphine and is willi ng to rebuild therapeutic rapport with the patient after she is discharged 10/19 - Called pain management clinic in regard to referral - if consultation during admission would be desired - It is reported PCP would need to make referral to pain management clinic Inventory Assets Strengths: voluntary, good rapport with outpatient MD Needs: support, further medical record reveiw and outpatient f/u Risk Factors Assessment Male: No : Yes Do You Have Access To A Gun?: No Health Problems: Yes Mental Health Diagnoses: Yes Substance Use Disorders: No Previous Attempt: No Family History of Suicide: No Previous Psychiatric Hospitalization: Yes Hopelessness: Yes Smoker: Yes Protective Factors Assessment Confucianist Beliefs: Yes : No Employed: No (Disability for back pain from [employer]) Good Rapport with Provider: Yes Interval History Identifying Information ALINA STONE is a 58-year-old F who currently lives in [facility], has her own home but presently staying with a friend, who has a history of Bipolar disorder and was admitted on 10/06/18 00:28 on a 201 voluntary status for psychotic depression and suicidality. Her symptoms worsened and progressed to catatonia, and she was placed on a 302 involuntary commitment on 10/16/2018 due to unresponsiveness and inability to participate in or consent to treatment. Her condition has since improved and she was agreeable to sign in voluntarily. Chief Complaint "Oh Jenifer, I'm not sure. I don't think I'm doing so good." Review of Systems Notes Constitutional: reports ongoing restlessness, in legs specifically Cardiovascular: denied Respiratory: denied Gastrointestinal: denied Neurological: denied Psychiatric: denies symptoms other than stated above Total of at least 10 systems reviewed, pertinent positives as above and in HPI. Sleep Information Total Hours of Sleep: 9.25 Sleep Comments: incontinent x 2 this shift. Meal Information Percent Meal Consumed - Breakfast: 80 Percent Meal Consumed - Lunch: 70 Percent Meal Consumed - Dinner: 90 Nutrition Comment: boost with lunch Subjective Subjective Patient was seen & assessed and interval progress reviewed with treatment team. Staff reports the patient is to have a meeting with her block and case maker tomorrow, suggesting they discuss housing options after discharge. She is to have an insurance review today. Patient was seen today to assess progress since ad mission. Pt states she is not doing well today. She was initially observed to be sitting on her bed, then states "See when I stand up, my legs get numb." Follow-up questions clarify that her legs do not become numb, rather, she is experiencing ongoing restlessness with need to move legs - "I keep marching to the beat of my own drum." Pt is able to recognize that her condition has been rather variable over the last week, stating "I keep going like this [up-and-down wave movement with hand]. Patient was told we, too, have been noticing this and have been making medication adjustments to promote stability of symptoms. Pt states, "I think it's too late." She was able to be redirected from these negative thoughts. Pt states her episodes of incontinence have been "getting worse I'd say" - although staff report patient has been doing better in this regard. Patient denies acute needs or concerns presently. Physical Exam Psychiatric Orientation: alert, oriented to person, oriented to place and cooperative Apperance: appropriately dressed (in t-shirt, jeans, and hoodie), appropriately groomed and appeared stated age cachectic in appearance Eye Contact: good eye contact Motor Behavior: + psychomotor agitation (pacing, shuffling feet, frequently shifting weight one foot to the other) Speech: normal rate/rhythm/volume of speech (soft volume today) Affect: + anxious affect and + blunted affect Mood: + depressed mood and + anxious mood ("I'm still so restless, so anxious") Thought Process: goal directed thought process, + perseveration and + concrete thought process Thought Content: + preoccupation (with level of anxiety and restlessness), + delusions, + hopelessness and + worthlessness Suicidal Thoughts: denies suicidal plan and denies suicidal intent; + reports suicidal thoughts (states today she is "suicidal") Homicidal Thoughts: denies homicidal thoughts Hallucinations: no auditory hallucinations and no visual hallucinations Cognition: attention grossly intact and language grossly intact Estimated Intelligence: consistent with education level Insight: + impaired insight Judgement: + impaired judgement Vital Signs (Past 24 Hours) Last Vital Signs Temp 36.3 C L 10/24/18 06:00 Pulse 85 10/24/18 11:55 Resp 16 10/24/18 06:00 BP 111/73 10/24/18 11:55 Pulse Ox 98 10/06/18 01:41 Results & Data Current Inpatient Medications Current Inpatient Medications: Current Inpatient Medications Acetaminophen (Tylenol) 1,000 mg PO Q6H PRN PRN Reason: Headache or Minor Fever Stop: 11/17/18 18:47 Last Admin: 10/20/18 16:11 Dose: 1,000 mg Documented by: Al Hydrox/Mg Hydrox/Simethicone (Maalox) 30 ml PO Q4H PRN PRN Reason: GI Upset Stop: 11/05/18 01:21 Last Admin: 10/21/18 17:44 Dose: 30 ml Documented by: Amantadine HCl (Symmetrel) 100 mg PO TID [facility] Stop: 11/22/18 13:59 Last Admin: 10/24/18 14:36 Dose: 100 mg Documented by: Atorvastatin Calcium ([facility]) [facility] [place] Stop: 11/05/18 08:59 Last Admin: 10/24/18 09:21 Dose: 20 mg Documented by: Bismuth Subsalicylate (Kaopectate) 15 ml PO PRN PRN PRN Reason: Loose Stool Stop: 11/05/18 01:21 Haloperidol (Haldol) 2.5 mg PO Q4H PRN PRN Reason: psychosis Stop: 11/14/18 15:22 Last Admin: 10/22/18 10:06 Dose: 2.5 mg Documented by: Haloperidol (Haldol) 2.5 mg PO TID [facility] Stop: 11/21/18 13:59 Last Admin: 10/24/18 14:36 Dose: 2.5 mg Documented by: Hydroxyzine HCl (Vistaril) 25 mg PO Q4H PRN PRN Reason: Anxiety Stop: 11/05/18 01:21 Last Admin: 10/12/18 10:04 Dose: 25 mg Documented by: Lamotrigine (Lamictal) 50 mg PO [facility] Stop: 11/21/18 08:59 Last Admin: 10/24/18 09:21 Dose: 50 mg Documented by: Lorazepam (Ativan) 2 mg IM TID PRN PRN Reason: catatonia Stop: 11/16/18 07:54 Lorazepam (Ativan) 1.5 mg PO TID [facility] Stop: 11/22/18 20:59 Last Admin: 10/24/18 14:36 Dose: 1.5 mg Documented by: Magnesium Hydroxide (Milk Of Magnesia) 30 ml PO DAILY PRN PRN Reason: Heartburn Stop: 11/05/18 01:21 Last Admin: 10/20/18 11:28 Dose: 30 ml Documented by: Mirtazapine (Remeron) 15 mg PO [facility] Stop: 11/09/18 21:59 Last Admin: 10/23/18 21:12 Dose: 15 mg Documented by: Morphine Sulfate (Ms Contin) 15 mg PO [facility] Stop: 10/31/18 21:59 Last Admin: 10/23/18 21:12 Dose: 15 mg Documented by: Multivitamins (Multivitamin Tab) 1 tab PO [facility] Stop: 11/05/18 08:59 Last Admin: 10/24/18 09:20 Dose: 1 tab Documented by: Nicotine (Nicoderm Cq) 21 mg TD QAM SHUN Stop: 11/05/18 08:59 Last Admin: 10/24/18 09:21 Dose: 21 mg Documented by: Nicotine Polacrilex (Nicorette 2mg) 1 piece MT UD PRN PRN Reason: Nicotine Withdrawal Stop: 11/05/18 01:21 Quetiapine Fumarate (Seroquel) 50 mg PO HS SHUN Stop: 11/22/18 21:59 Last Admin: 10/23/18 21:12 Dose: 50 mg Documented by: Sodium Chloride ([place] Nasal) 1 - 2 sprays NA PRN PRN PRN Reason: Nasal Dryness/Congestion Stop: 11/05/18 01:21 Tolterodine Tartrate (Detrol) 2 mg PO BID SHUN Stop: 11/22/18 09:29 Last Admin: 10/24/18 09:20 Dose: 2 mg Documented by: Mental Health & Subst Abuse Tx Psychiatrist Name of Psychiatrist: [facility] Duncan Borden Psychiatrist's Date of Appointment with Psychiatrist: 11/07/18 Time of Appointment with Psychiatrist: 1:35 p.m. Psychiatric Appointment Comment[facility] [address] [facility] [place] [facility] Name of Therapist: [place] Therapist's Date of Therapist Appointment: 11/01/18 Time of Therapist Appointment: 2:00 p.m. Therapy Appointment Comment[facility] [address] [facility] [place] Review Consultant Name of Review Consultant: None Post Discharge Appointments Primary Care Physician Name Of Family Doctor: [facility] - Dr. Yovany Davis Primary Care Date of Appointment with PCP: 11/05/18 Time of Appointment with PCP: 8:30 a.m. Provider Appointment Comment: [address], [address], [place] Other #1: Name of Aftercare Appointment: [facility] Review Consultant - Margi Santana Phone Number of Aftercare Appointment: [phone] Aftercare Appointment Comment: A resource from your insurance company. No obligation or cost to utilize. Contact Information Discharge Discharge Address: [address] [place] [id number] CPT Code CPT Code 14255 (1) Bipolar disorder Active/Remission status: currently active Current bipolar episode type: depressed Current episode severity: severe Psychotic features: with psychotic features Qualified Code(s): F31.5 - Bipolar disorder, current episode depressed, severe, with psychotic features
[2018-10-24] MEDS: QUETIAPINE FUMARATE 100 MG TABLET PO SCH (21:17)
[2018-10-24] MEDS: MIRTAZAPINE TAB 15 MG TAB PO SCH (21:17)
[2018-10-24] MEDS: MoRPHine SULFATE CR 15 MG TABCR PO SCH (21:22)
[2018-10-25] MEDS: LORazepam 0.5 MG TAB PO SCH ×3 (08:07→21:47)
[2018-10-25] MEDS: HALOPERIDOL 5 MG TAB PO SCH ×3 (08:08→21:48)
[2018-10-25] MEDS: ATORVASTATIN 20 MG TAB PO SCH (08:09)
[2018-10-25] MEDS: TOLTERODINE TARTRATE 2 MG TAB PO SCH ×2 (08:09→21:48)
[2018-10-25] MEDS: NICOTINE 21 MG/24 HR TDSY TD SCH (08:09)
[2018-10-25] MEDS: AMANTADINE HCL 100 MG CAPSULE PO SCH ×3 (08:09→21:48)
[2018-10-25] MEDS: MULTIVITAMIN TAB PO SCH (08:09)
[2018-10-25] MEDS: lamoTRIgine 25 MG TAB PO SCH (08:09)
--- NOTE | 2018-10-25 09:56 | Psychiatric Progress Note ---
Date of Service October 25, 2018 Impression / Recommendations Impression 58y/o female with bipolar disorder who presented with depression, anxiety, and SI in the context of poor p.o. intake, underweight with BMI of 15.4, and perseveration on delusions that she is going to at any moment, consistently stating she will not make it through the day. She had [place] [facility], where she was treated for similar symptoms, but was noncompliant with medications after discharge, not believing she needed them. Multiple medication changes have been made to address mood, anxiety, psychosis, and sleep: Initially Depakote was discontinued, olanzapine 10 mg at bedtime continued, and mirtazapine started; but due to concerns for akathisia, olanzapine was discontinued in favor of quetiapine, and lamotrigine was started for bipolar depression. Her mood, psychosis, and anxiety worsened, she refused medications for several days, tried to leave the unit, was not eating or drinking and lost weight (BMI 15.1), was not able to participate in treatment or respond to staff, and ultimately had to be placed on a 302 involuntary commitment on 10/16/2018 given her inability to to give informed consent for treatment and the potential need to inject her with benzodiazepines to treat catatonia. She is improved briefly with the addition of lorazepam, and was better able to participate in treatment - signing back in voluntarily prior to expiration of her involuntary commitment. As patient's condition has been worsening, medication adjustments were made - favoring haloperidol over quetiapine, to which response had been limited. Patient receiving 2.5m g/2.5mg/5mg of haloperidol. Inpatient treatment remains medically necessary due to the severity of her symptoms, and ability to provide for her own basic needs without inpatient level of care, and risk for harm to herself if discharged. (1) Suicidal ideation: 10/06 and 10/07 - inpatient is least restrictive and most appropriate setting for care given multiple risk factors, passive SI, hopelessness, pain, poor sleep, restlessness. 10/08 -patient endorsing suicidal thoughts with a plan to starve herself, and reports that she has been restricting intake with unknown amount of weight loss. She is underweight with BMI 15.4. Continue to monitor p.o. intake and encourage good nutrition. 10/09 - Pt denies active SI, but continues to believe that she is "reaching the end" and that is imminent, which further contributes to her anxiety 10/11 -today patient is reporting to harm herself, and states that she would "probably" tried to end her life if she were not in the hospital. 10/12 - The patient reports today that she does not feel that it will be necessary for her to commit suicide because she is to be put to in the morning by lethal injection. 10/16 -patient is eating very little, not drinking, stating alternatively that she will at any moment or that she is already . 10/17- Mood, SI, and psychosis improving. 10/24 - Reporting "I'm suicidal" today; however, states this is more so frustration and inability to go on if her condition does not improve 10/25 - Continues to states she is "suicidal" - though denies desire to end her life, thoughts to harm herself, plan, or intent (2) Bipolar disorder: 10/06 - She had been stable for many years on Zyprexa +/- Depakote and trazodone although occasional low moods often seasonally mediated and anxiety at times failing Cymbalta due to PANIAGUA's. Given this history I would like to keep her on a mood stabilizer but am concerned about hair loss and tremor and possible compounded cognitive impairment with Depakote so I held this, so will keep Zyprexa 10mg for now.stop Depakote, continue Zyprexa 10mg, start Remeron 15mg/hs 10/07 - stopped zyprexa to r/o akathisia (5mg tonight then off), returned to Seroquel (due to sedation stopped Remeron as well) 100mg tonight then 200mg thereafter with hope would stabilize, help depression and off label help sleep and anxiety, initial target dose if 200mg watching to assure not too fatigued as per last trial t 300mg when she had enuresis and daytime fatigue. She is now at lowered dose of morphine so fatigue and oversedation less likely Strongly consider Lamictal for mood stabilization, due to h/o break through depression on Seroquel in the noel, titration briefly discussed today but patient was too overwhelmed to consent. 10/08 -Continue quetiapine 200 mg at bedtime, and at 50 mg as needed dose for sleep. Reviewed the risks, benefits, and side effects of lamotrigine, which was also reviewed with her yesterday, including the risk of serious rash/SJS. She agreed to a trial, and will start 25 mg daily. -Order fasting labs for monitoring on an atypical antipsychotic. 10/09 - Planning to initiate quetiapine 25mg BID at 0900 and 1400; will order 25mg q4h prn for anxiety/disorganized thoughts. Will continue quetiapine 200mg at bedtime with 50mg additional dose as needed for sleep. - Will attempt to get fasting labs tomorrow morning, as patient had eaten overnight and the blood test could not be completed today - Continue lamotrigine 25mg daily 10/10 - Will titrate daytime doses of quetiapine to 50mg BID with continued 200mg/50mg bedtime dosing - Continue lamotrigine 25mg daily - Will restart mirtazapine at 15mg as patient continues to experience insomnia, receiving only 1.75 hours of sleep last evening 10/11 -Continue current medications; quetiapine just increased yesterday with scheduled dosing throughout the day as well as as needed dose; continue to titrate to effective dose. Sleep improved with resumption of mirtazapine. 10/13 hopefully can titrate Seroquel tomorrow. 10/14--doesn't appear that benefiting much from Seroquel, hesitant to titrate given sedation, tremor and gait. Appetite remains poor. Refused meds this am. Was losing weight on Zyprexa. Trial of a typical agent (haldol) may be appropriate, will defer to primary team. will note that if patient continues to refuse PO medications, she should receive meds over objection as or serious injury to self would come from psychotic disorder resulting in poor PO and she will not improve without such medication. Refusal of meds and level of psychosis would be indication for involuntary commitment. 10/15--patient refusing medications and not answering questions today. She did converse with the iron worker foreman and was able to eat, but was uncooperative with my attempt to interview her. She has not received quetiapine in 2 days. I will order haloperidol as needed, and consider a 302 involuntary commitment and medications over objection if she does not improve in the next 24 hours. -Patient appears more altered today. She has not had labs since 10/05/2018, so will order a CMP, CBC, and UA to rule out electrolyte abnormalities, UTI, and look for signs of infection or other medical issues that could contribute to deteriorating mental status/delirium. -Consider EEG. 10/16--patient refusing medications for the third day in a row, not eating very much, refusing to drink, and attempted to leave the unit last night. She is refusing all groups, and will not engage or talk with staff. She continues to state that she believes she is , or will at any moment. She has been in her bed most of the time, and does not respond to questions or commands. CBC, CMP, and UA were checked yesterday and were notable for elevated WBC 11.78, hemoglobin 17.2, hematocrit 47.2, elevated MCH and MCV HC. Total bilirubin was elevated at 1.1, and remainder of CMP was normal. UA showed 1+ ketones. Vital signs were normal this morning. Lab results do not indicate any active medical conditions contributing to her altered mental status and decreased responsiveness. Ketonuria does indicate starvation, and if she is already underweight with a BMI of 15.1, she is at risk if she continues to refuse to eat. Current symptoms are consistent with catatonia and I would like to do a lorazepam challenge; 1 mg p.o. stat was ordered, but the patient is refusing to take oral medications. We will need to use IM Lorazepam. As she is severely depressed, psychotic, catatonic, unable to appreciate the risks and benefits of treatment, and is refusing potentially life-saving treatment including medications, fluids, and food, we will proceed with a 302 involuntary commitment. 10/17--catatonia significantly improved, we will schedule Lorazepam 2 mg 3 times daily and taper as tolerated. --Continue lamotrigine, quetiapine, mirtazapine, and trihexyphenidyl as ordered, which she is now taking willingly. --Encourage group attendance and participation. Work on addressing stressors, including financial concerns, housing, and supports. Scheduled family meeting with son. --Work on discharge planning. 10/18 - Pt condition mildly worse today; however, still improved overall since admission - Due to concerns for sedation, lorazepam was reduced to 1mg TID - Continue lamotrigine, quetiapine, mirtazapine, and trihexyphenidyl as above - Son stopped in for family meeting later this morning 10/19 - Titrate HS dose of quetiapine to 250mg; continue quetiapine 50mg BID - Continue lorazepam 1mg TID - Continue lamotrigine, mirtazapine, and trihexyphenidyl 10/20 -Continue current medications. Frequent reassurance required, encourage patient to participate in groups and activities. 10/21 -Increase lamotrigine to 50 mg daily tomorrow, and in 2 more weeks can increase to 100 mg daily. -Limit as needed doses of Artane due to dry mouth and excessive thirst. 10/22 - Seroquel tapered to 100mg qHS and plans to utilize haloperidol as prominent antipsychotic medication based on response to prns - Haloperidol ordered 2.5mg TID to initiate, with continued availability to 2.5mg q4h prn - Discontinued Artane due to concern for ongoing excessive thirst contributing to urinary frequency/urgency - Initiated amantadine, 50mg initial dose with 100mg BID scheduled thereafter for EPS - May need to consider re-trail of lorazepam challenge if patient's condition does not improve with these adjustments 10/23 - Decrease quetiapine to 50mg HS and continue haloperidol 2.5mg tid and prn. Continue lorazepam mg tid. 10/24 - Discontinue quetiapine - Will order second dose of 2.5mg haloperidol to be available at bedtime if needed. - Lorazepam increased to 1.5mg TID yesterday 10/25 - Haloperidol titrated to 2.5mg/2.5mg/5mg today - 2.5mg doses remain available as needed throughout the day - Continue remainder of medication regimen as above - Sleep and appetite continue to be stable (3) Akathisia: 10/06/18 - possibly neuroleptic induced, worsened by anxiety. Working theory is lowered dose of morphine uncovered akathisia caused by Zyprexa need to gather more history to consider need for AAP vs. mood stabilizer or both and prior response to other meds, would like to avoid anticholinergics given cognitive concerns 10/07/18 - she is having insomnia, needs mood stabilization and antidepressant, she did have some fatigue on 300mg but now on lowered dose of morphine. There were possibly two instances of enuresis but 200mg consistently was never tested over longer term for treatment, and given akathisia do not wish to use Clozaril and other AAP ongoing likelihood of akathisia so will retrial Seroquel titration to 200mg watching energy, and monitoring for nighttime urination. Patient affirms understanding history and current situation reviewed and she agrees with this plan as it supports multiple symptoms and leads to reduction of polypharmacy. 10/09 - Unclear if tremor and restlessness is true akathisia or related to anxiety - as it is not constant and appears to be worse when anxiety is highest - Continue to observe, but will refrain from treating with additional medication at this time - No evidence of cogwheeling or dystonia on physical exam 10/13 --EPS resolved with Artane 10/12 -Cogwheeling is present today on physical examination. The patient was given diphenhydramine 25 mg IM and is being observed. Her symptoms do appear to be consistent with akathisia, although they do appear to wax and wane. 10/16 -although cogwheeling and tremulousness continue, we are avoiding deliriogenic medications given her worsening mental status. 10/17--resume trihexyphenidyl 2 mg twice daily. 10/22 - Discontinued trihexyphenidyl - Initiated amantadine 100mg BID, beginning with 50mg dose this afternoon 10/23 - Continue amantadine and increase to 100mg tid 10/24 - Continue as above (4) Cognitive disorder: 10/06/18 - I am concerned about her cognition as her overall MMSE-like assessment was near normal outside of a few points, but her CLOX was notably poor indicating poor executive function concerns. Again I will need to review PCM's records to see what labs and studies have been done to r/u reversible causes of cognitive decline. TSH WNL, LFTs WNL. Furthermore morphine and zyprexa and residual VPA can contribute to poor cognition. Will add MVI for now to support. 10/07 - review of remainder of labs from Dr Davis cited in 10/07 note B12, cbc, CMP vit D all WNL, could be h/o alcohol, polypharmacy with narcotic and AAP, and VPA although the latter has been stopped. There are no focal findings on exam. CLOX I indicates frontal lobe/executive issues but no other obvious release signs or personality changes or overt disinhibition. Recommend referral to neuropsych testing at [facility] after discharge for further characterization of her deficits as they may be pseudo dementia of depression or medications or both. 10/12 -Cognitive testing currently is not possible, due to the degree of the patient's thought disorganization and psychotic thinking. 10/23 - Refer to [facility] for cognitive and neuropsych testing (5) Anxiety: 10/06/18 - remeron off label, zyprexa off label 10/07/18 - off remeron onto seroquel may have some off label help for sleep and anxiety, supportive therapy on milieu as patient works through some roots of anxiety in divulging her medication diversion 10/09 - Quetiapine 25mg BID at 0900 and 1400 - with prn doses available q4h prn - Continue supportive therapy and engage patient in groups and active coping strategies as able 10/10 - Titrating daytime doses of quetiapine to 50mg BID, continue prn dosing if necessary - Will restart mirtazapine at 15mg this evening to target insomnia and persistent ruminations regarding health and feelings of guilt - If restart of mirtazapine is over-sedating, can consider reducing dose to 7.5mg qHS 10/12 -The patient's underlying anxiety may be exacerbated seizure. She describes a restless, "jumpy" feeling much of the time. She also notes that it is sometimes difficult for her to swallow and her muscles feel "stiff." On examination, today, there is cogwheel rigidity. 10/19 - Titrating quetiapine for mood stabilization/ongoing delusions - off-label benefit for anxiety - Now 50mg qAM, 50mg in afternoon and 250mg qHS - Quetiapine 25mg remains available as needed 10/22 - Continue mirtazapine 15mg qHS - Haloperidol titrated (6) Chronic pain: 10/06/18 - continue home dose of morphine (if Remeron not effective for mood consider SNRI desvenlafaxine with caution) 10/07/18 - patient admits to real pain but taking her morphine less than prescribed for many years and up until recently diverting the rest for money, she states she has recently changed this practice but is concerned about how to tell her doctors and the emerging financial strain now that she is no longer diverting her medications. This is a major source of her anxiety, possibly contributing to depression and weight loss as well. - request the weekday team help her to tell her PCM and psychiatrist, and then to work out possible relationship with pain clinic for [place] or related opiate agonist/antagonist so that her pain can be treated and not diverted if possible. 10/08 -Patient too distraught, psychotic, and disorganized today to address this. 10/09 - Continues to verbalize pain; states it is manageable 10/11 -Patient endorses guilt at times related to selling her prescribed morphine, and this has not yet been addressed with her PCP, who is out of the office until next week. The patient remains to distraught and psychotic to process this, so will revisit it next week. 10/16 -Patient has refused morphine the last 2 days. If she resumes it at some point, may want to use a lower dose to avoid oversedation. 10/17 -Lower morphine dose to 15 mg at bedtime, and continue 15 mg as needed dose, as patient is now receiving scheduled lorazepam for catatonia, and want to avoid JOURNEY[employer] depression and oversedation. -Called Dr. Davis to review morphine misuse and his recs re: ongoing morphine/pain management. Spoke with his nurse, reviewed course of treatment thus far, and gave contact information for him to call if he has any further treatment recommendations. 10/18 - Dr. Davis returned phone call regarding the above concerns - he is agreeable with reduction of HS morphine to 15mg; he reports desire for a pain management referral for ongoing management - As patient has not consistently been utilizing prn Morphine IR, it was suggested the prn be held and replaced with acetaminophen 1,000mg up to 4x daily for pain - He suggested option of Icy Hot or Salonpas for more mild pain to avoid centrally acting medications if not necessary for severity of reported pain - we will see what is formulary - He was informed that patient has reported selling her morphine and is willing to rebuild therapeutic rapport with the patient after she is discharged 10/19 - Called pain management clinic in regard to referral - if consultation during admission would be desired - It is reported PCP would need to make referral to pain management clinic Inventory Assets Strengths: voluntary, good rapport with outpatient MD Needs: support, further medical record review and outpatient f/u Risk Factors Assessment Male: No : Yes Do You Have Access To A Gun?: No Health Problems: Yes Mental Health Diagnoses: Yes Substance Use Disorders: No Previous Attempt: No Family History of Suicide: No Previous Psychiatric Hospitalization: Yes Hopelessness: Yes Smoker: Yes Protective Factors Assessment Congregational Beliefs: Yes : No Employed: No (Disability for back pain from [employer]) Good Rapport with Provider: Yes Interval History Identifying Information ALINA STONE is a 58-year-old F who currently lives in [facility], has her own home but presently staying with a friend, who has a history of Bipolar disorder and was admitted on 10/06/18 00:28 on a 201 voluntary status for psychotic depression and suicidality. Her symptoms worsened and progressed to catatonia, and she was placed on a 302 involuntary commitment on 10/16/2018 due to unresponsiveness and inability to participate in or consent to treatment. Her condition has since improved and she was agreeable to sign in voluntarily. Chief Complaint "Oh Jenifer, I think I'm at my wit's end." Review of Systems Notes Constitutional: vague complaint of "my eyes, I'm just staring" Cardiovascular: reports her "heart stopped"; reports "cold legs" Respiratory: denied Gastrointestinal: denied Neurological: denied Psychiatric: denies symptoms other than stated above Total of at least 10 systems reviewed, pertinent positives as above and in HPI. Sleep Information Total Hours of Sleep: 9.75 Sleep Comments: incontinent x 2 this shift. Meal Information Percent Meal Consumed - Breakfast: 80 Percent Meal Consumed - Lunch: 70 Percent Meal Consumed - Dinner: 95 Nutrition Comment: boost with lunch Subjective Subjective Patient was seen & assessed and interval progress reviewed with treatment team. Staff reports the patient did not attend groups yesterday, but appeared mildly improved. Patient's son reportedly visited yesterday, planning to meet with patient on 10/29 to pay bills and sort through mail. Staff reports incontinence has been improving. Patient was seen today to assess progress since admission. She walks past this provider's office stating "I think I'm at my wit's end." Pt was asked why she feels this way - reporting "my heart has stopped and my eyes..." Pt states this feeling "comes and goes" - as this provider mentioned she looked much improved during a brief interaction earlier this morning. Pt states, "yeah, I feel better, and I'm eating like a horse." Overall, patient reports improvement in sleep and appetite. We reviewed her vital signs for the duration of her visit - as patient continues to verbalize concern she does not have a pulse and her breathing is shallow. In the moment, patient seemed reassured by this. She states the restlessness in her legs is no worse the previously. Pt is agreeable to titration of her HS dose of haloperidol to continue to target severe anxious ruminations and disorganized thoughts with delusions of being or dying soon. Pt denied other acute concerns today. Physical Exam Psychiatric Orientation: alert, oriented to person, oriented to place and cooperative Apperance: appropriately dressed (casually, in sweatshirt and elda capris) and appropriately groomed (recently showered; regularly launders clothes) Eye Contact: good eye contact (continues staring behavior; but appearing less fixated and wide-eyed) Motor Behavior: steady gait and station (cautious but steady unassisted ambulation); + abnormal motor movements (ongoing leg restlessness; crossing legs and shifting in chair) Speech: normal rate/rhythm/volume of speech Affect: + anxious affect (highly anxious) and + flat affect Mood: + anxious mood "I just feel like this is the end" Thought Process: + circumstantial thought process, + perseveration (thoughts continue to circulate regarding her and her son's health) and + concrete thought process Thought Content: + preoccupation and + hopelessness Suicidal Thoughts: denies suicidal plan and denies suicidal intent ("well I certainly don't want to hurt myself"); + reports suicidal thoughts (patient states she is suicidal, describing "hopelessness") Homicidal Thoughts: denies homicidal thoughts Hallucinations: no auditory hallucinations and no visual hallucinations Cognition: attention grossly intact and language grossly intact Estimated Intelligence: consistent with education level Insight: + impaired insight Judgement: + impaired judgement Vital Signs (Past 24 Hours) Last Vital Signs Temp 36.6 C 10/25/18 06:00 Pulse 79 10/25/18 06:45 Resp 15 10/25/18 06:00 BP 115/73 10/25/18 06:45 Pulse Ox 98 10/06/18 01:41 Results & Data Current Inpatient Medications Current Inpatient Medications: Current Inpatient Medications Acetaminophen (Tylenol) 1,000 mg PO Q6H PRN PRN Reason: Headache or Minor Fever Stop: 11/17/18 18:47 Last Admin: 10/20/18 16:11 Dose: 1,000 mg Documented by: Al Hydrox/Mg Hydrox/Simethicone (Maalox) 30 ml PO Q4H PRN PRN Reason: GI Upset Stop: 11/05/18 01:21 Last Admin: 10/21/18 17:44 Dose: 30 ml Documented by: Amantadine HCl (Symmetrel) 100 mg PO TID [facility] Stop: 11/22/18 13:59 Last Admin: 10/25/18 08:09 Dose: 100 mg Documented by: Atorvastatin Calcium (Lipitor) 20 mg PO [facility] Stop: 11/05/18 08:59 Last Admin: 10/25/18 08:09 Dose: 20 mg Documented by: Bismuth Subsalicylate (Kaopectate) 15 ml PO PRN PRN PRN Reason: Loose Stool Stop: 11/05/18 01:21 Haloperidol (Haldol) 2.5 mg PO Q4H PRN PRN Reason: psychosis Stop: 11/14/18 15:22 Last Admin: 10/22/18 10:06 Dose: 2.5 mg Documented by: Haloperidol (Haldol) 2.5 mg PO TID [facility] Stop: 11/21/18 13:59 Last Admin: 10/25/18 08:08 Dose: 2.5 mg Documented by: Hydroxyzine HCl (Vistaril) 25 mg PO Q4H PRN PRN Reason: Anxiety Stop: 11/05/18 01:21 Last Admin: 10/12/18 10:04 Dose: 25 mg Documented by: Lamotrigine (Lamictal) 50 mg PO [facility] Stop: 11/21/18 08:59 Last Admin: 10/25/18 08:09 Dose: 50 mg Documented by: Lorazepam (Ativan) 2 mg IM TID PRN PRN Reason: catatonia Stop: 11/16/18 07:54 Lorazepam (Ativan) 1.5 mg PO TID [facility] Stop: 11/22/18 20:59 Last Admin: 10/25/18 08:07 Dose: 1.5 mg Documented by: Magnesium Hydroxide (Milk Of Magnesia) 30 ml PO DAILY PRN PRN Reason: Heartburn Stop: 11/05/18 01:21 Last Admin: 10/20/18 11:28 Dose: 30 ml Documented by: Mirtazapine (Remeron) 15 mg PO HS [facility] Stop: 11/09/18 21:59 Last Admin: 10/24/18 21:17 Dose: 15 mg Documented by: Morphine Sulfate (Ms Contin) 15 mg PO HS [facility] Stop: 10/31/18 21:59 Last Admin: 10/24/18 21:22 Dose: 15 mg Documented by: Multivitamins (Multivitamin Tab) 1 tab PO QAM [facility] Stop: 11/05/18 08:59 Last Admin: 10/25/18 08:09 Dose: 1 tab Documented by: Nicotine (Nicoderm Cq) 21 mg TD QAM [facility] Stop: 11/05/18 08:59 Last Admin: 10/25/18 08:09 Dose: 21 mg Documented by: Nicotine Polacrilex (Nicorette 2mg) 1 piece MT UD PRN PRN Reason: Nicotine Withdrawal Stop: 11/05/18 01:21 Quetiapine Fumarate (Seroquel) 50 mg PO HS [facility] Stop: 11/22/18 21:59 Last Admin: 10/24/18 21:17 Dose: 50 mg Documented by: Sodium Chloride ([place] Nasal) 1 - 2 sprays NA PRN PRN PRN Reason: Nasal Dryness/Congestion Stop: 11/05/18 01:21 Tolterodine Tartrate (Detrol) 2 mg PO BID [facility] Stop: 11/22/18 09:29 Last Admin: 10/25/18 08:09 Dose: 2 mg Documented by: Mental Health & Subst Abuse Tx Psychiatrist Name of Psychiatrist: Kim Borden Psychiatrist's Date of Appointment with Psychiatrist: 11/07/18 Time of Appointment with Psychiatrist: 1:35 p.m. Psychiatric Appointment Comment: [id number] [place], [place] Therapist Name of Therapist: Kim Weiner Therapist's Date of Therapist Appointment: 11/01/18 Time of Therapist Appointment: 2:00 p.m. Therapy Appointment Comment: [address] [place] Client Evaluator Name of Client Evaluator: None Post Discharge Appointments Primary Care Physician Name Of Family Doctor: Baldev Song Dr. Yovany Davis [facility] Date of Appointment with PCP: 11/05/18 Time of Appointment with PCP: 8:30 a.m. Provider Appointment Comment: [address], [address], [place] Other #1: Name of Aftercare Appointment: [facility] Client Evaluator - Margi Santana Phone Number of Aftercare Appointment: [phone] Aftercare Appointment Comment: A resource from your insurance company. No obligation or cost to utilize. Contact Information Discharge Discharge Address: [address] [place] [address] CPT Code CPT Code 13805 (1) Bipolar disorder Active/Remission status: currently active Current bipolar episode type: depressed Current episode severity: severe Psychotic features: with psychotic features Qualified Code(s): F31.5 - Bipolar disorder, current episode depresse d, severe, with psychotic features
[2018-10-25] MEDS: ACETAMINOPHEN 500 MG TAB PO PRN ×2 (11:22→17:07)
[2018-10-25] MEDS: MIRTAZAPINE TAB 15 MG TAB PO SCH (21:48)
[2018-10-25] MEDS: MoRPHine SULFATE CR 15 MG TABCR PO SCH (21:49)
[2018-10-25] MEDS: ALUMINUM/MAGNESIUM SUSP 30 ML UDC PO PRN (22:08)
[2018-10-26] MEDS: HALOPERIDOL 5 MG TAB PO SCH ×3 (06:40→20:43)
[2018-10-26] MEDS: MULTIVITAMIN TAB PO SCH (07:31)
[2018-10-26] MEDS: AMANTADINE HCL 100 MG CAPSULE PO SCH ×3 (07:31→20:43)
[2018-10-26] MEDS: TOLTERODINE TARTRATE 2 MG TAB PO SCH ×2 (07:31→20:43)
[2018-10-26] MEDS: ATORVASTATIN 20 MG TAB PO SCH (07:31)
[2018-10-26] MEDS: NICOTINE 21 MG/24 HR TDSY TD SCH (07:31)
[2018-10-26] MEDS: lamoTRIgine 25 MG TAB PO SCH (07:32)
[2018-10-26] MEDS: LORazepam 0.5 MG TAB PO SCH ×3 (07:58→20:43)
--- NOTE | 2018-10-26 09:42 | Psychiatric Progress Note ---
Date of Service October 26, 2018 Impression / Recommendations Impression 58y/o female with bipolar disorder who presented with depression, anxiety, and SI in the context of poor p.o. intake, underweight with BMI of 15.4, and perseveration on delusions that she is going to at any moment, consistently stating she will not make it through the day. She had just been discharged [place] [facility] [place] prior to admission, where she was treated for similar symptoms, but was noncompliant with medications after discharge, not believing she needed them. Multiple medication changes have been made to address mood, anxiety, psychosis, and sleep: Initially Depakote was discontinued, olanzapine 10 mg at bedtime continued, and mirtazapine started; but due to concerns for akathisia, olanzapine was discontinued in favor of quetiapine, and lamotrigine was started for bipolar depression. Her mood, psychosis, and anxiety worsened, she refused medications for several days, tried to leave the unit, was not eating or drinking and lost weight (BMI 15.1), was not able to participate in treatment or respond to staff, and ultimately had to be placed on a 302 involuntary commitment on 10/16/2018 given her inability to to give informed consent for treatment and the potential need to inject her with benzodiazepines to treat catatonia. She is improved briefly with the addition of lorazepam, and was better able to participate in treatment - signing back in voluntarily prior to expiration of her involuntary commitment. As patient's condition has been worsening, medication adjustments were made - favoring haloperidol over quetiapine, to which response had been limited. Patient receiving 2.5m g/2.5mg/5mg of haloperidol. Inpatient treatment remains medically necessary due to the severity of her symptoms, and ability to provide for her own basic needs without inpatient level of care, and risk for harm to herself if discharged. (1) Suicidal ideation: 10/06 and 10/07 - inpatient is least restrictive and most appropriate setting for care given multiple risk factors, passive SI, hopelessness, pain, poor sleep, restlessness. 10/08 -patient endorsing suicidal thoughts with a plan to starve herself, and reports that she has been restricting intake with unknown amount of weight loss. She is underweight with BMI 15.4. Continue to monitor p.o. intake and encourage good nutrition. 10/09 - Pt denies active SI, but continues to believe that she is "reaching the end" and that is imminent, which further contributes to her anxiety 10/11 -today patient is reporting to harm herself, and states that she would "probably" tried to end her life if she were not in the hospital. 10/12 - The patient reports today that she does not feel that it will be necessary for her to commit suicide because she is to be put to in the morning by lethal injection. 10/16 -patient is eating very little, not drinking, stating alternatively that she will at any moment or that she is already . 10/17- Mood, SI, and psychosis improving. 10/24 - Reporting "I'm suicidal" today; however, states this is more so frustration and inability to go on if her condition does not improve 10/25 - Continues to states she is "suicidal" - though denies desire to end her life, thoughts to harm herself, plan, or intent 10/26 - Denies suicidal ideation today (2) Bipolar disorder: 10/06 - She had been stable for many years on Zyprexa +/- Depakote and trazodone although occasional low moods often seasonally mediated and anxiety at times failing Cymbalta due to PANIAGUA's. Given this history I would like to keep her on a mood stabilizer but am concerned about hair loss and tremor and possible compounded cognitive impairment with Depakote so I held this, so will keep Zyprexa 10mg for now.stop Depakote, continue Zyprexa 10mg, start Remeron 15mg/hs 10/07 - stopped zyprexa to r/o akathisia (5mg tonight then off), returned to Seroquel (due to sedation stopped Remeron as well) 100mg tonight then 200mg thereafter with hope would stabilize, help depression and off label help sleep and anxiety, initial target dose if 200mg watching to assure not too fatigued as per last trial t 300mg when she had enuresis and daytime fatigue. She is now at lowered dose of morphine so fatigue and oversedation less likely Strongly consider Lamictal for mood stabilization, due to h/o break through depression on Seroquel in the noel, titration briefly discussed today but patient was too overwhelmed to consent. 10/08 -Continue quetiapine 200 mg at bedtime, and at 50 mg as needed dose for sleep. Reviewed the risks, benefits, and side effects of lamotrigine, which was also reviewed with her yesterday, including the risk of serious rash/SJS. She agreed to a trial, and will start 25 mg daily. -Order fasting labs for monitoring on an atypical antipsychotic. 10/09 - Planning to initiate quetiapine 25mg BID at 0900 and 1400; will order 25mg q4h prn for anxiety/disorganized thoughts. Will continue quetiapine 200mg at bedtime with 50mg additional dose as needed for sleep. - Will attempt to get fasting labs tomorrow morning, as patient had eaten overnight and the blood test could not be completed today - Continue lamotrigine 25mg daily 10/10 - Will titrate daytime doses of quetiapine to 50mg BID with continued 200mg/50mg bedtime dosing - Continue lamotrigine 25mg daily - Will restart mirtazapine at 15mg as patient continues to experience insomnia, receiving only 1.75 hours of sleep last evening 10/11 -Continue current medications; quetiapine just increased yesterday with scheduled dosing throughout the day as well as as needed dose; continue to titrate to effective dose. Sleep improved with resumption of mirtazapine. 10/13 hopefully can titrate Seroquel tomorrow. 10/14--doesn't appear that benefiting much from Seroquel, hesitant to titrate given sedation, tremor and gait. Appetite remains poor. Refused meds this am. Was losing weight on Zyprexa. Trial of a typical agent (haldol) may be appropriate, will defer to primary team. will note that if patient continues to refuse PO medications, she should receive meds over objection as or serious injury to self would come from psychotic disorder resulting in poor PO and she will not improve without such medication. Refusal of meds and level of psychosis would be indication for involuntary commitment. 10/15--patient refusing medications and not answering questions today. She did converse with the neonatal social worker and was able to eat, but was uncooperative with my attempt to interview her. She has not received quetiapine in 2 days. I will order haloperidol as needed, and consider a 302 involuntary commitment and medications over objection if she does not improve in the next 24 hours. -Patient appears more altered today. She has not had labs since 10/05/2018, so will order a CMP, CBC, and UA to rule out electrolyte abnormalities, UTI, and look for signs of infection or other medical issues that could contribute to deteriorating mental status/delirium. -Consider EEG. 10/16--patient refusing medications for the third day in a row, not eating very much, refusing to drink, and attempted to leave the unit last night. She is refusing all groups, and will not engage or talk with staff. She continues to state that she believes she is , or will at any moment. She has been in her bed most of the time, and does not respond to questions or commands. CBC, CMP, and UA were checked yesterday and were notable for elevated WBC 11.78, hemoglobin 17.2, hematocrit 47.2, elevated MCH and MCV HC. Total bilirubin was elevated at 1.1, and remainder of CMP was normal. UA showed 1+ ketones. Vital signs were normal this morning. Lab results do not indicate any active medical conditions contributing to her altered mental status and decreased responsiveness. Ketonuria does indicate starvation, and if she is already underweight with a BMI of 15.1, she is at risk if she continues to refuse to eat. Current symptoms are consistent with catatonia and I would like to do a lorazepam challenge; 1 mg p.o. stat was ordered, but the patient is refusing to take oral medications. We will need to use IM Lorazepam. As she is severely depressed, psychotic, catatonic, unable to appreciate the risks and benefits of treatment, and is refusing potentially life-saving treatment including medications, fluids, and food, we will proceed with a 302 involuntary commitment. 10/17--catatonia significantly improved, we will schedule Lorazepam 2 mg 3 times daily and taper as tolerated. --Continue lamotrigine, quetiapine, mirtazapine, and trihexyphenidyl as ordered, which she is now taking willingly. --Encourage group attendance and participation. Work on addressing stressors, including financial concerns, housing, and supports. Scheduled family meeting with son. --Work on discharge planning. 10/18 - Pt condition mildly worse today; however, still improved overall since admission - Due to concerns for sedation, lorazepam was reduced to 1mg TID - Continue lamotrigine, quetiapine, mirtazapine, and trihexyphenidyl as above - Son stopped in for family meeting later this morning 10/19 - Titrate HS dose of quetiapine to 250mg; continue quetiapine 50mg BID - Continue lorazepam 1mg TID - Continue lamotrigine, mirtazapine, and trihexyphenidyl 10/20 -Continue current medications. Frequent reassurance required, encourage patient to participate in groups and activities. 10/21 -Increase lamotrigine to 50 mg daily tomorrow, and in 2 more weeks can increase to 100 mg daily. -Limit as needed doses of Artane due to dry mouth and excessive thirst. 10/22 - Seroquel tapered to 100mg qHS and plans to utilize haloperidol as prominent antipsychotic medication based on response to prns - Haloperidol ordered 2.5mg TID to initiate, with continued availability to 2.5mg q4h prn - Discontinued Artane due to concern for ongoing excessive thirst contributing to urinary frequency/urgency - Initiated amantadine, 50mg initial dose with 100mg BID scheduled thereafter for EPS - May need to consider re-trail of lorazepam challenge if patient's condition does not improve with these adjustments 10/23 - Decrease quetiapine to 50mg HS and continue haloperidol 2.5mg tid and prn. Continue lorazepam mg tid. 10/24 - Discontinue quetiapine - Will order second dose of 2.5mg haloperidol to be available at bedtime if needed. - Lorazepam increased to 1.5mg TID yesterday 10/25 - 10/26 - Haloperidol titrated to 2.5mg/2.5mg/5mg today - 2.5mg doses remain available as needed throughout the day - Continue remainder of medication regimen as above - Sleep and appetite continue to be stable (3) Akathisia: 10/06/18 - possibly neuroleptic induced, worsened by anxiety. Working theory is low ered dose of morphine uncovered akathisia caused by Zyprexa need to gather more history to consider need for AAP vs. mood stabilizer or both and prior response to other meds, would like to avoid anticholinergics given cognitive concerns 10/07/18 - she is having insomnia, needs mood stabilization and antidepressant, she did have some fatigue on 300mg but now on lowered dose of morphine. There were possibly two instances of enuresis but 200mg consistently was never tested over longer term for treatment, and given akathisia do not wish to use Clozaril and other AAP ongoing likelihood of akathisia so will retrial Seroquel titration to 200mg watching energy, and monitoring for nighttime urination. Patient affirms understanding history and current situation reviewed and she agrees with this pl an as it supports multiple symptoms and leads to reduction of polypharmacy. 10/09 - Unclear if tremor and restlessness is true akathisia or related to anxiety - as it is not constant and appears to be worse when anxiety is highest - Continue to observe, but will refrain from treating with additional medication at this time - No evidence of cogwheeling or dystonia on physical exam 10/13 --EPS resolved with Artane 10/12 -Cogwheeling is present today on physical examination. The patient was given diphenhydramine 25 mg IM and is being observed. Her symptoms do appear to be consistent with akathisia, although they do appear to wax and wane. 10/16 -although cogwheeling and tremulousness continue, we are avoiding deliriogenic medications given her worsening mental status. 10/17--resume trihexyphenidyl 2 mg twice daily. 10/22 - Discontinued trihexyphenidyl - Initiated amantadine 100mg BID, beginning with 50mg dose this afternoon 10/23 - Continue amantadine and increase to 100mg tid 10/24 - Continue as above (4) Cognitive disorder: 10/06/18 - I am concerned about her cognition as her overall MMSE-like assessment was near normal outside of a few points, but her CLOX was notably poor indicating poor executive function concerns. Again I will need to review PCM's records to see what labs and studies have been done to r/u reversible causes of cognitive decline. TSH WNL, LFTs WNL. Furthermore morphine and zyprexa and residual VPA can contribute to poor cognition. Will add MVI for now to support. 10/07 - review of remainder of labs from Dr Davis cited in 10/07 note B12, cbc, CMP vit D all WNL, could be h/o alcohol, polypharmacy with narcotic and AAP, and VPA although the latter has been stopped. There are no focal findings on exam. CLOX I indicates frontal lobe/executive issues but no other obvious release signs or personality changes or overt disinhibition. Recommend referral to neuropsych testing at [facility] after discharge for further characterization of her deficits as they may be pseudo dementia of depression or medications or both. 10/12 -Cognitive testing currently is not possible, due to the degree of the patient's thought disorganization and psychotic thinking. 10/23 - Refer to [facility] for cognitive and neuropsych testing (5) Anxiety: 10/06/18 - remeron off label, zyprexa off label 10/07/18 - off remeron onto seroquel may have some off label help for sleep and anxiety, supportive therapy on milieu as patient works through some roots of anx iety in divulging her medication diversion 10/09 - Quetiapine 25mg BID at 0900 and 1400 - with prn doses available q4h prn - Continue supportive therapy and engage patient in groups and active coping strategies as able 10/10 - Titrating daytime doses of quetiapine to 50mg BID, continue prn dosing if necessary - Will restart mirtazapine at 15mg this evening to target insomnia and persistent ruminations regarding health and feelings of guilt - If restart of mirtazapine is over-sedating, can consider reducing dose to 7.5mg qHS 10/12 -The patient's underlying anxiety may be exacerbated seizure. She describes a restless, "jumpy" feeling much of the time. She also notes that it is sometimes difficult for her to swallow and her muscles feel "stiff." On examination, today, there is cogwheel rigidity. 10/19 - Titrating quetiapine for mood stabilization/ongoing delusions - off-label benefit for anxiety - Now 50mg qAM, 50mg in afternoon and 250mg qHS - Quetiapine 25mg remains available as needed 10/22 - Continue mirtazapine 15mg qHS - Haloperidol titrated (6) Chronic pain: 10/06/18 - continue home dose of morphine (if Remeron not effective for mood consider SNRI desvenlafaxine with caution) 10/07/18 - patient admits to real pain but taking her morphine less than prescribed for many years and up until recently diverting the rest for money, she states she has recently changed this practice but is concerned about how to tell her doctors and the emerging financial strain now that she is no longer diverting her medications. This is a major source of her anxiety, possibly contributing to depression and weight loss as well. - request the weekday team help her to tell her PCM and psychiatrist, and then to work out possible relationship with pain clinic for [place] or related opiate agonist/antagonist so that her pain can be treated and not diverted if possible. 10/08 -Patient too distraught, psychotic, and disorganized today to address this. 10/09 - Continues to verbalize pain; states it is manageable 10/11 -Patient endorses guilt at times related to selling her prescribed morphine, and this has not yet been addressed with her PCP, who is out of the office until next week. The patient remains to distraught and psychotic to process this, so will revisit it next week. 10/16 -Patient has refused morphine the last 2 days. If she resumes it at some point, may want to use a lower dose to avoid oversedation. 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 -Called Dr. Davis to review morphine misuse and his recs re: ongoing morphine/pain management. Spoke with his nurse, reviewed course of treatment thus far, and gave contact information for him to call if he has any further treatment recommendations. 10/18 - Dr. Davis returned phone call regarding the above concerns - he is agreeable with reduction of HS morphine to 15mg; he reports desire for a pain management referral for ongoing management - As patient has not consistently been utilizing prn Morphine IR, it was suggested the prn be held and replaced with acetaminophen 1,000mg up to 4x daily for pain - He suggested option of Icy Hot or Salonpas for more mild pain to avoid centrally acting medications if not necessary for severity of reported pain - we will see what is formulary - He was informed that patient has reported selling her morphine and is willing to rebuild therapeutic rapport with the patient after she is discharged 10/19 - Called pain management clinic in regard to referral - if consultation during admission would be desired - It is reported PCP would need to make referral to pain management clinic Inventory Assets Strengths: voluntary, good rapport with outpatient MD Needs: support, further medical record review and outpatient f/u Risk Factors Assessment Male: No : Yes Do You Have Access To A Gun?: No Health Problems: Yes Mental Health Diagnoses: Yes Substance Use Disorders: No Previous Attempt: No Family History of Suicide: No Previous Psychiatric Hospitalization: Yes Hopelessness: Yes Smoker: Yes Protective Factors Assessment Scientologist Beliefs: Yes : No Employed: No (Disability for back pain from [employer]) Good Rapport with Provider: Yes Interval History Identifying Information ALINA STONE is a 58-year-old F who currently lives in [facility], has her own home but presently staying with a friend, who has a history of Bipolar disorder and was admitted on 10/06/18 00:28 on a 201 voluntary status for psychotic depression and suicidality. Her symptoms worsened and progressed to catatonia, and she was placed on a 302 involuntary commitment on 10/16/2018 due to unresponsiveness and inability to participate in or consent to treatment. Her condition has since improved and she was agreeable to sign in voluntarily. Chief Complaint "I am worn out, I had nightmares last night." Review of Systems Notes Constitutional: reports ongoing restlessness Cardiovascular: denied Respiratory: denied Gastrointestinal: denied Neurological: denied Psychiatric: denies symptoms other than stated above Total of at least 10 systems reviewed, pertinent positives as above and in HPI. Sleep Information Total Hours of Sleep: 5.75 Sleep Comments: incontinent of urine in her brief once-able to to take care of her own needs Meal Information Percent Meal Consumed - Breakfast: 100 Percent Meal Consumed - Lunch: 80 Percent Meal Consumed - Dinner: 100 Nutrition Comment: boost with lunch Subjective Subjective Patient was seen & assessed and interval progress reviewed with treatment team. Staff report the patient is showing some improvement this morning. She was unable to tolerate a visit with her home health care case manager yesterday, but the home health care case manager is planning to explore home health aide options for the patient at discharge. Patient was seen today to assess progress since admission. She tells this provider that she is "worn out" this morning. Patient shares that she had nightmares last evening, "but after I woke up and took the medication I went back to sleep and did not have any." The patient states that the nightmares occurred during a period of time where she was resting after dinner. Patient was asked how the remainder of her day was yesterday, to which she responds "it went pretty good." Patient was able to have a lucid conversation with this provider in which she described a game she particularly enjoyed during 1 of the activity groups last evening. Patient is denying suicidal ideation today and states "I have hope, I believe in God. My friends visited last night and brought me too much candy." Overall, the patient does feel that things are improving. She has been observed throughout part of the morning to continue to make statements believing that she was going to , but was easily redirected. Patient denies any other needs or concerns today. Physical Exam Psychiatric Orientation: alert, oriented x 3 and cooperative Apperance: appropriately dressed, appropriately groomed and appeared stated age Eye Contact: good eye contact (Less aggressive staring today) Motor Behavior: steady gait and station (Slow and cautious, but stable ambulation) and no abnormal motor movements Speech: normal rate/rhythm/volume of speech Affect: + anxious affect and + flat affect Mood: + anxious mood ("I am still feeling a little restless"); no depressed mood ("I feel pretty good, things are better") Thought Process: goal directed thought process, clear/coherent thought process and + concrete thought process Thought Content: + delusions (Continues to verbalize beliefs that she is going to ) Suicidal Thoughts: denies suicidal thoughts and denies suicidal intent Homicidal Thoughts: denies homicidal thoughts Hallucinations: no auditory hallucinations and no visual hallucinations Cognition: attention grossly intact and language grossly intact Estimated Intelligence: consistent with education level Insight: + impaired insight Judgement: + impaired judgement Vital Signs (Past 24 Hours) Last Vital Signs Temp 36.4 C L 10/26/18 06:00 Pulse 75 10/26/18 06:54 Resp 18 10/26/18 06:00 BP 107/51 L 10/26/18 06:54 Pulse Ox 98 10/06/18 01:41 Results & Data Current Inpatient Medications Current Inpatient Medications: Current Inpatient Medications Acetaminophen (Tylenol) 1,000 mg PO Q6H PRN PRN Reason: Headache or Minor Fever Stop: 11/17/18 18:47 Last Admin: 10/25/18 17:07 Dose: 1,000 mg Documented by: Al Hydrox/Mg Hydrox/Simethicone (Maalox) 30 ml PO Q4H PRN PRN Reason: GI Upset Stop: 11/05/18 01:21 Last Admin: 10/25/18 22:08 Dose: 30 ml Documented by: Amantadine HCl (Symmetrel) 100 mg PO TID [facility] Stop: 11/22/18 13:59 Last Admin: 10/26/18 07:31 Dose: 100 mg Documented by: Atorvastatin Calcium (Lipitor) 20 mg PO QAM [facility] Stop: 11/05/18 08:59 Last Admin: 10/26/18 07:31 Dose: 20 mg Documented by: Bismuth Subsalicylate (Kaopectate) 15 ml PO PRN PRN PRN Reason: Loose Stool Stop: 11/05/18 01:21 Haloperidol (Haldol) 2.5 mg PO Q4H PRN PRN Reason: psychosis Stop: 11/14/18 15:22 Last Admin: 10/22/18 10:06 Dose: 2.5 mg Documented by: Haloperidol (Haldol) 5 mg PO HS [facility] Stop: 11/24/18 21:59 Last Admin: 10/25/18 21:48 Dose: 5 mg Documented by: Haloperidol (Haldol) 2.5 mg PO [id number] [facility] Stop: 11/24/18 13:59 Last Admin: 10/26/18 06:40 Dose: 2.5 mg Documented by: Hydroxyzine HCl (Vistaril) 25 mg PO Q4H PRN PRN Reason: Anxiety Stop: 11/05/18 01:21 Last Admin: 10/12/18 10:04 Dose: 25 mg Documented by: Lamotrigine (Lamictal) [facility] [place] [facility] [place]: 11/21/18 08:59 Last Admin: 10/26/18 07:32 Dose: 50 mg Documented by: Lorazepam (Ativan) 2 mg IM TID PRN PRN Reason: catatonia Stop: 11/16/18 07:54 Lorazepam (Ativan) 1.5 mg PO TID [facility] Stop: 11/22/18 20:59 Last Admin: 10/26/18 07:58 Dose: 1.5 mg Documented by: Magnesium Hydroxide (Milk Of Magnesia) 30 ml PO DAILY PRN PRN Reason: Heartburn Stop: 11/05/18 01:21 Last Admin: 10/20/18 11:28 Dose: 30 ml Documented by: Mirtazapine (Remeron) 15 mg PO HS SHUN Stop: 11/09/18 21:59 Last Admin: 10/25/18 21:48 Dose: 15 mg Documented by: Morphine Sulfate (Ms Contin) 15 mg PO HS SHUN Stop: 10/31/18 21:59 Last Admin: 10/25/18 21:49 Dose: 15 mg Documented by: Multivitamins (Multivitamin Tab) 1 tab PO QAM SHUN Stop: 11/05/18 08:59 Last Admin: 10/26/18 07:31 Dose: 1 tab Documented by: Nicotine (Nicoderm Cq) 21 mg TD QAM SHUN Stop: 11/05/18 08:59 Last Admin: 10/26/18 07:31 Dose: 21 mg Documented by: Nicotine Polacrilex (Nicorette 2mg) 1 piece MT UD PRN PRN Reason: Nicotine Withdrawal Stop: 11/05/18 01:21 Sodium Chloride ([place] Nasal) 1 - 2 sprays NA PRN PRN PRN Reason: Nasal Dryness/Congestion Stop: 11/05/18 01:21 Tolterodine Tartrate (Detrol) 2 mg PO BID SHUN Stop: 11/22/18 09:29 Last Admin: 10/26/18 07:31 Dose: 2 mg Documented by: Mental Health & Subst Abuse Tx Psychiatrist Name of Psychiatrist: [facility] Duncan Borden Psychiatrist's Date of Appointment with Psychiatrist: 11/07/18 Time of Appointment with Psychiatrist: 1:35 p.m. Psychiatric Appointment Comment[facility] [address] [facility] [place] [facility] Name of Therapist: [facility] Duncan Weiner Therapist's Date of Therapist Appointment: 11/01/18 Time of Therapist Appointment: 2:00 p.m. Therapy Appointment Comment: [address] [place], [place] Glove Cutter Name of Glove Cutter: None Post Discharge Appointments Primary Care Physician Name Of Family Doctor: [facility] - Dr. Yovany Davis Primary Care Date of Appointment with PCP: 11/05/18 Time of Appointment with PCP: 8:30 a.m. Provider Appointment Comment: [address], [address], [place] Other #1: Name of Aftercare Appointment: [facility] - Margi Santana Phone Number of Aftercare Appointment: [phone] Aftercare Appointment Comment: A resource from your insurance company. No obligation or cost to utilize. Contact Information Discharge Discharge Address: [address] [place] [address] CPT Code CPT Code 10724 (1) Bipolar disorder Active/Remission status: currently active Current bipolar episode type: depressed Current episode severity: severe Psychotic features: with psychotic features Qualified Code(s): F31.5 - Bipolar disorder, current episode depressed, severe, with psychotic features
[2018-10-26] MEDS: ACETAMINOPHEN 500 MG TAB PO PRN (10:50)
[2018-10-26] MEDS: MoRPHine SULFATE CR 15 MG TABCR PO SCH (20:43)
[2018-10-26] MEDS: MIRTAZAPINE TAB 15 MG TAB PO SCH (20:44)
[2018-10-27] MEDS: HALOPERIDOL 5 MG TAB PO SCH ×3 (06:53→21:23)
[2018-10-27] MEDS: ATORVASTATIN 20 MG TAB PO SCH (07:54)
[2018-10-27] MEDS: TOLTERODINE TARTRATE 2 MG TAB PO SCH ×2 (07:54→21:22)
[2018-10-27] MEDS: lamoTRIgine 25 MG TAB PO SCH (07:55)
[2018-10-27] MEDS: LORazepam 0.5 MG TAB PO SCH ×3 (07:55→21:22)
[2018-10-27] MEDS: NICOTINE 21 MG/24 HR TDSY TD SCH (07:55)
[2018-10-27] MEDS: MULTIVITAMIN TAB PO SCH (07:55)
[2018-10-27] MEDS: AMANTADINE HCL 100 MG CAPSULE PO SCH ×3 (07:56→21:23)
[2018-10-27] MEDS: LITHIUM CARBONATE 300 MG TAB PO SCH ×2 (12:52→21:22)
--- NOTE | 2018-10-27 19:08 | Psychiatric Progress Note ---
Date of Service October 27, 2018 Impression / Recommendations Impression 58y/o female with bipolar disorder who presented with depression, anxiety, and SI in the context of poor p.o. intake, underweight with BMI of 15.4, and perseveration on delusions that she is going to at any moment, consistently stating she will not make it through the day. She had just been discharged from [facility] 5 days prior to admission, where she was treated for similar symptoms, but was noncompliant with medications after discharge, not believing she needed them. Multiple medication changes have been made to address mood, anxiety, psychosis, and sleep: Initially Depakote was discontinued, olanzapine 10 mg at bedtime continued, and mirtazapine started; but due to concerns for akathisia, olanzapine was discontinued in favor of quetiapine, and lamotrigine was started for bipolar depression. Her mood, psychosis, and anxiety worsened, she refused medications for several days, tried to leave the unit, was not eating or drinking and lost weight (BMI 15.1), was not able to participate in treatment or respond to staff, and ultimately had to be placed on a 302 involuntary commitment on 10/16/2018 given her inability to to give informed consent for treatment and the potential need to inject her with benzodiazepines to treat catatonia. She is improved briefly with the addition of lorazepam, and was better able to participate in treatment - signing back in voluntarily prior to expiration of her involuntary commitment. As patient's condition has been worsening, medication adjustments were made - favoring haloperidol over quetiapine, to which response had been limited. Patient receiving 2.5m g/2.5mg/5mg of haloperidol. Inpatient treatment remains medically necessary due to the severity of her symptoms, and ability to provide for her own basic needs without inpatient level of care, and risk for harm to herself if discharged. (1) Suicidal ideation: 10/06 and 10/07 - inpatient is least restrictive and most appropriate setting for care given multiple risk factors, passive SI, hopelessness, pain, poor sleep, restlessness. 10/08 -patient endorsing suicidal thoughts with a plan to starve herself, and reports that she has been restricting intake with unknown amount of weight loss. She is underweight with BMI 15.4. Continue to monitor p.o. intake and encourage good nutrition. 10/09 - Pt denies active SI, but continues to believe that she is "reaching the end" and that is imminent, which further contributes to her anxiety 10/11 -today patient is reporting to harm herself, and states that she would "probably" tried to end her life if she were not in the hospital. 10/12 - The patient reports today that she does not feel that it will be necessary for her to commit suicide because she is to be put to in the morning by lethal injection. 10/16 -patient is eating very little, not drinking, stating alternatively that she will at any moment or that she is already . 10/17- Mood, SI, and psychosis improving. 10/24 - Reporting "I'm suicidal" today; however, states this is more so frustration and inability to go on if her condition does not improve 10/25 - Continues to states she is "suicidal" - though denies desire to end her life, thoughts to harm herself, plan, or intent 10/26 - Denies suicidal ideation today (2) Bipolar disorder: 10/06 - She had been stable for many years on Zyprexa +/- Depakote and trazodone although occasional low moods often seasonally mediated and anxiety at times failing Cymbalta due to PANIAGUA's. Given this history I would like to keep her on a mood stabilizer but am concerned about hair loss and tremor and possible compounded cognitive impairment with Depakote so I held this, so will keep Zyprexa 10mg for now.stop Depakote, continue Zyprexa 10mg, start Remeron 15mg/hs 10/07 - stopped zyprexa to r/o akathisia (5mg tonight then off), returned to Seroquel (due to sedation stopped Remeron as well) 100mg tonight then 200mg thereafter with hope would stabilize, help depression and off label help sleep and anxiety, initial target dose if 200mg watching to assure not too fatigued as per last trial t 300mg when she had enuresis and daytime fatigue. She is now at lowered dose of morphine so fatigue and oversedation less likely Strongly consider Lamictal for mood stabilization, due to h/o break through depression on Seroquel in the noel, titration briefly discussed today but patient was too overwhelmed to consent. 10/08 -Continue quetiapine 200 mg at bedtime, and at 50 mg as needed dose for sleep. Reviewed the risks, benefits, and side effects of lamotrigine, which was also reviewed with her yesterday, including the risk of serious rash/SJS. She agreed to a trial, and will start 25 mg daily. -Order fasting labs for monitoring on an atypical antipsychotic. 10/09 - Planning to initiate quetiapine 25mg BID at 0900 and 1400; will order 25mg q4h prn for anxiety/disorganized thoughts. Will continue quetiapine 200mg at bedtime with 50mg additional dose as needed for sleep. - Will attempt to get fasting labs tomorrow morning, as patient had eaten overnight and the blood test could not be completed today - Continue lamotrigine 25mg daily 10/10 - Will titrate daytime doses of quetiapine to 50mg BID with continued 200mg/50mg bedtime dosing - Continue lamotrigine 25mg daily - Will restart mirtazapine at 15mg as patient continues to experience insomnia, receiving only 1.75 hours of sleep last evening 10/11 -Continue current medications; quetiapine just increased yesterday with scheduled dosing throughout the day as well as as needed dose; continue to titrate to effective dose. Sleep improved with resumption of mirtazapine. 10/13 hopefully can titrate Seroquel tomorrow. 10/14--doesn't appear that benefiting much from Seroquel, hesitant to titrate given sedation, tremor and gait. Appetite remains poor. Refused meds this am. Was losing weight on Zyprexa. Trial of a typical agent (haldol) may be appropriate, will defer to primary team. will note that if patient continues to refuse PO medications, she should receive meds over objection as or serious injury to self would come from psychotic disorder resulting in poor PO and she will not improve without such medication. Refusal of meds and level of psychosis would be indication for involuntary commitment. 10/15--patient refusing medications and not answering questions today. She did converse with the case management social worker and was able to eat, but was uncooperative with my attempt to interview her. She has not received quetiapine in 2 days. I will order haloperidol as needed, and consider a 302 involuntary commitment and medications over objection if she does not improve in the next 24 hours. -Patient appears more altered today. She has not had labs since 10/05/2018, so will order a CMP, CBC, and UA to rule out electrolyte abnormalities, UTI, and look for signs of infection or other medical issues that could contribute to deteriorating mental status/delirium. -Consider EEG. 10/16--patient refusing medications for the third day in a row, not eating very much, refusing to drink, and attempted to leave the unit last night. She is refusing all groups, and will not engage or talk with staff. She continues to state that she believes she is , or will at any moment. She has been in her bed most of the time, and does not respond to questions or commands. CBC, CMP, and UA were checked yesterday and were notable for elevated WBC 11.78, hemoglobin 17.2, hematocrit 47.2, elevated MCH and MCV HC. Total bilirubin was elevated at 1.1, and remainder of CMP was normal. UA showed 1+ ketones. Vital signs were normal this morning. Lab results do not indicate any active medical conditions contributing to her altered mental status and decreased responsiveness. Ketonuria does indicate starvation, and if she is already underweight with a BMI of 15.1, she is at risk if she continues to refuse to eat. Current symptoms are consistent with catatonia and I would like to do a lorazepam challenge; 1 mg p.o. stat was ordered, but the patient is refusing to take oral medications. We will need to use IM Lorazepam. As she is severely depressed, psychotic, catatonic, unable to appreciate the risks and benefits of treatment, and is refusing potentially life-saving treatment including medications, fluids, and food, we will proceed with a 302 involuntary commitment. 10/17--catatonia significantly improved, we will schedule Lorazepam 2 mg 3 times daily and taper as tolerated. --Continue lamotrigine, quetiapine, mirtazapine, and trihexyphenidyl as ordered, which she is now taking willingly. --Encourage group attendance and participation. Work on addressing stressors, including financial concerns, housing, and supports. Scheduled family meeting with son. --Work on discharge planning. 10/18 - Pt condition mildly worse today; however, still improved overall since admission - Due to concerns for sedation, lorazepam was reduced to 1mg TID - Continue lamotrigine, quetiapine, mirtazapine, and trihexyphenidyl as above - Son stopped in for family meeting later this morning 10/19 - Titrate HS dose of quetiapine to 250mg; continue quetiapine 50mg BID - Continue lorazepam 1mg TID - Continue lamotrigine, mirtazapine, and trihexyphenidyl 10/20 -Continue current medications. Frequent reassurance required, encourage patient to participate in groups and activities. 10/21 -Increase lamotrigine to 50 mg daily tomorrow, and in 2 more weeks can increase to 100 mg daily. -Limit as needed doses of Artane due to dry mouth and excessive thirst. 10/22 - Seroquel tapered to 100mg qHS and plans to utilize haloperidol as prominent antipsychotic medication based on response to prns - Haloperidol ordered 2.5mg TID to initiate, with continued availability to 2.5mg q4h prn - Discontinued Artane due to concern for ongoing excessive thirst contributing to urinary frequency/urgency - Initiated amantadine, 50mg initial dose with 100mg BID scheduled thereafter for EPS - May need to consider re-trail of lorazepam challenge if patient's condition does not improve with these adjustments 10/23 - Decrease quetiapine to 50mg HS and continue haloperidol 2.5mg tid and prn. Continue lorazepam mg tid. 10/24 - Discontinue quetiapine - Will order second dose of 2.5mg haloperidol to be available at bedtime if needed. - Lorazepam increased to 1.5mg TID yesterday 10/25 - 10/26 - Haloperidol titrated to 2.5mg/2.5mg/5mg today - 2.5mg doses remain available as needed throughout the day - Continue remainder of medication regimen as above - Sleep and appetite continue to be stable 10/27 -She seems to be demonstrating improved thought cohesion and less negative symptoms with titration of Haldol however complaining of mild EPS symptoms and reviewed that olanzapine was initially discontinued secondary to concern for EPS. Ultimately it might make sense to convert her back over to the olanzapine which has been a long-standing therapeutic intervention as it does have lower risk for EPS as compared to the Haldol but will defer this change for now secondary to recent interval improvement -reviewed compelling reasons to discontinue the Depakote at admission including concern for some cognitive slowing. Her Depakote level was within normal range. As it will take some time to titrate Lamictal, we discussed consideration for lithium trial, particularly given the neurotropic effects of lithium and the possibility that more adequate mood stabilization with lithium, possibly combined with continued Lamictal, will reduce need for antipsychotic longer term. She was agreeable to the lithium trial after review of risks and benefits in detail which included potential long-term impact on thyroid functioning and renal functioning. She was made aware of the need for regular lab work and agreeable. Start lithium carbonate 300 mg p.o. twice daily today. Lab order for lithium trough level in 5 days. (3) Akathisia: 10/06/18 - possibly neuroleptic induced, worsened by anxiety. Working theory is lowered dose of morphine uncovered akathisia caused by Zyprexa need to gather more history to consider need for AAP vs. mood stabilizer or both and prior response to other meds, would like to avoid anticholinergics given cognitive concerns 10/07/18 - she is having insomnia, needs mood stabilization and antidepressant, she did have some fatigue on 300mg but now on lowered dose of morphine. There were possibly two instances of enuresis but 200mg consistently was never tested over longer term for treatment, and given akathisia do not wish to use Clozaril and other AAP ongoing likelihood of akathisia so will retrial Seroquel titration to 200mg watching energy, and monitoring for nighttime urination. Patient affirms understanding history and current situation reviewed and she agrees with this plan as it supports multiple symptoms and leads to reduction of polypharmacy. 10/09 - Unclear if tremor and restlessness is true akathisia or related to anxiety - as it is not constant and appears to be worse when anxiety is highest - Continue to observe, but will refrain from treating with additional medication at this time - No evidence of cogwheeling or dystonia on physical exam 10/13 --EPS resolved with Artane 10/12 -Cogwheeling is present today on physical examination. The patient was given diphenhydramine 25 mg IM and is being observed. Her symptoms do appear to be consistent with akathisia, although they do appear to wax and wane. 10/16 -although cogwheeling and tremulousness continue, we are avoiding deliriogenic medications given her worsening mental status. 10/17--resume trihexyphenidyl 2 mg twice daily. 10/22 - Discontinued trihexyphenidyl - Initiated amantadine 100mg BID, beginning with 50mg dose this afternoon 10/23 - Continue amantadine and increase to 100mg tid 10/24 - Continue as above (4) Cognitive disorder: 10/06/18 - I am concerned about her cognition as her overall MMSE-like assessment was near normal outside of a few points, but her CLOX was notably poor indicating poor executive function concerns. Again I will need to review PCM's records to see what labs and studies have been done to r/u reversible causes of cognitive decline. TSH WNL, LFTs WNL. Furthermore morphine and zyprexa and residual VPA can contribute to poor cognition. Will add MVI for now to support. 10/07 - review of remainder of labs from Dr Davis cited in 10/07 note B12, cbc, CMP vit D all WNL, could be h/o alcohol, polypharmacy with narcotic and AAP, and VPA although the latter has been stopped. There are no focal findings on exam. CLOX I indicates frontal lobe/executive issues but no other obvious release signs or personality changes or overt disinhibition. Recommend referral to neuropsych testing at [facility] after discharge for further characterization of her deficits as they may be pseudo dementia of depression or medications or both. 10/12 -Cognitive testing currently is not possible, due to the degree of the patient's thought disorganization and psychotic thinking. 10/23 - Refer to [facility] for cognitive and neuropsych testing (5) Anxiety: 10/06/18 - remeron off label, zyprexa off label 10/07/18 - off remeron onto seroquel may have some off label help for sleep and anxiety, supportive therapy on milieu as patient works through some roots of anxiety in divulging her medication diversion 10/09 - Quetiapine 25mg BID at 0900 and 1400 - with prn doses available q4h prn - Continue supportive therapy and engage patient in groups and active coping strategies as able 10/10 - Titrating daytime doses of quetiapine to 50mg BID, continue prn dosing if necessary - Will restart mirtazapine at 15mg this evening to target insomnia and persistent ruminations regarding health and feelings of guilt - If restart of mirtazapine is over-sedating, can consider reducing dose to 7.5mg qHS 10/12 -The patient's underlying anxiety may be exacerbated seizure. She describes a restless, "jumpy" feeling much of the time. She also notes that it is sometimes difficult for her to swallow and her muscles feel "stiff." On examination, today, there is cogwheel rigidity. 10/19 - Titrating quetiapine for mood stabilization/ongoing delusions - off-label benefit for anxiety - Now 50mg qAM, 50mg in afternoon and 250mg qHS - Quetiapine 25mg remains available as needed 10/22 - Continue mirtazapine 15mg qHS - Haloperidol titrated (6) Chronic pain: 10/06/18 - continue home dose of morphine (if Remeron not effective for mood consider SNRI desvenlafaxine with caution) 10/07/18 - patient admits to real pain but taking her morphine less than prescribed for many years and up until recently diverting the rest for money, she states she has recently changed this practice but is concerned about how to tell her doctors and the emerging financial strain now that she is no longer diverting her medications. This is a major source of her anxiety, possibly contributing to depression and weight loss as well. - request the weekday team help her to tell her PCM and psychiatrist, and then to work out possible relationship with pain clinic for [place] or related opiate agonist/antagonist so that her pain can be treated and not diverted if possible. 10/08 -Patient too distraught, psychotic, and disorganized today to address this. 10/09 - Continues to verbalize pain; states it is manageable 10/11 -Patient endorses guilt at times related to selling her prescribed morphine, and this has not yet been addressed with her PCP, who is out of the office until next week. The patient remains to distraught and psychotic to process this, so will revisit it next week. 10/16 -Patient has refused morphine the last 2 days. If she resumes it at some point, may want to use a lower dose to avoid oversedation. 10/17 -Lower morphine dose to 15 mg at bedtime, and continue 15 mg as needed dose, as patient is now receiving scheduled lorazepam for catatonia, and want to avoid [employer] depression and oversedation. -Called Dr. Davis to review morphine misuse and his recs re: ongoing morphine/pain management. Spoke with his nurse, reviewed course of treatment thus far, and gave contact information for him to call if he has any further treatment recommendations. 10/18 - Dr. Davis returned phone call regarding the above concerns - he is agreeable with reduction of HS morphine to 15mg; he reports desire for a pain management referral for ongoing management - As patient has not consistently been utilizing prn Morphine IR, it was suggested the prn be held and replaced with acetaminophen 1,000mg up to 4x daily for pain - He suggested option of Icy Hot or Salonpas for more mild pain to avoid centrally acting medications if not necessary for severity of reported pain - we will see what is formulary - He was informed that patient has reported selling her morphine and is willing to rebuild therapeutic rapport with the patient after she is discharged 10/19 - Called pain management clinic in regard to referral - if consultation during admission would be desired - It is reported PCP would need to make referral to pain management clinic Inventory Assets Strengths: voluntary, good rapport with outpatient MD Needs: support, further medical record review and outpatient f/u Risk Factors Assessment Male: No : Yes Do You Have Access To A Gun?: No Health Problems: Yes Mental Health Diagnoses: Yes Substance Use Disorders: No Previous Attempt: No Family History of Suicide: No Previous Psychiatric Hospitalization: Yes Hopelessness: Yes Smoker: Yes Protective Factors Assessment Pent[employer]al Beliefs: Yes : No Employed: No (Disability for back pain from [employer]) Good Rapport with Provider: Yes Interval History Identifying Information ALINA STONE is a 58-year-old F who currently lives in [facility], has her own home but presently staying with a friend, who has a history of Bipolar disorder and was admitted on 10/06/18 00:28 on a 201 voluntary status for psychotic depression and suicidality. Her symptoms worsened and progressed to catatonia, and she was placed on a 302 involuntary commitment on 10/16/2018 due to unresponsiveness and inability to participate in or consent to treatment. Her condition has since improved and she was agreeable to sign in voluntarily. Chief Complaint "I am still anxious". Review of Systems Notes Denies history of thyroid disorder, Sleep Information Total Hours of Sleep: 8.25 Sleep Comments: incontinent of urine in her brief once-able to to take care of her own needs Meal Information Percent Meal Consumed - Breakfast: 100 Percent Meal Consumed - Lunch: 100 Percent Meal Consumed - Dinner: 80 Nutrition Comment: boost with lunch Subjective Subjective Patient was seen & assessed and interval progress reviewed with treatment team. Per staff patient is family showing some modest interval improvement on current regimen with reduced nihilistic delusions, thoughts of , and behavior suspicious for catatonia. Reviewed multiple recent medication changes. In reviewing her clinical course it appears possible that some of her decompensation was associated with the discontinuation of the antipsychotic, mid dose olanzapine, and failure to respond to the alternative, Seroquel. Depakote has been discontinued in favor of Lamictal trial. She is presently only on 50 mg and it will be another week and a half until she is eligible for further titration. On interview she complains of continued anxiety, still feels restless and complains of change in gait. "I feel like I am walking like a zombie." She does endorse history of sarthak today. "I feel down but energy is up." She acknowledges continued thoughts of and dying but denies desire to or suicidal ideation. Reviewed recent lab work including GFR of 76.6 on 10/15/2018, TSH normal on 10/05/2018, and unremarkable EKG on 09/24/2018. Physical Exam Psychiatric Orientation: alert and cooperative Apperance: appropriately dressed and appropriately groomed Eye Contact: good eye contact Motor Behavior: no abnormal motor movements and + EPS (Armswing diminished bilaterally. Gait not obviously shuffling); no psychomotor retardation Speech: normal rate/rhythm/volume of speech Affect: + blunted affect Mood: + depressed mood and + anxious mood Thought Process: linear/logical thought process Thought Content: not paranoid Suicidal Thoughts: denies suicidal thoughts Cognition: attention grossly intact Insight: + fair insight Judgement: + fair judgement Vital Signs (Past 24 Hours) Last Vital Signs Temp 36.6 C 10/27/18 06:57 Pulse 71 10/27/18 06:58 Resp 18 10/27/18 06:57 BP 103/66 10/27/18 06:58 Pulse Ox 98 10/06/18 01:41 See physical exam by Dr. East in the ER 10/05/18 which has been reviewed and accepted for purposes of this H&P Results & Data Current Inpatient Medications Current Inpatient Medications: Current Inpatient Medications Acetaminophen (Tylenol) 1,000 mg PO Q6H PRN PRN Reason: Headache or Minor Fever Stop: 11/17/18 18:47 Last Admin: 10/26/18 10:50 Dose: 1,000 mg Documented by: Al Hydrox/Mg Hydrox/Simethicone (Maalox) 30 ml PO Q4H PRN PRN Reason: GI Upset Stop: 11/05/18 01:21 Last Admin: 10/25/18 22:08 Dose: 30 ml Documented by: Amantadine HCl (Symmetrel) 100 mg PO TID [facility] Stop: 11/22/18 13:59 Last Admin: 10/27/18 13:52 Dose: 100 mg Documented by: Atorvastatin Calcium (Lipitor) 20 mg PO QAM [facility] Stop: 11/05/18 08:59 Last Admin: 10/27/18 07:54 Dose: 20 mg Documented by: Bismuth Subsalicylate (Kaopectate) 15 ml PO PRN PRN PRN Reason: Loose Stool Stop: 11/05/18 01:21 Haloperidol (Haldol) 2.5 mg PO Q4H PRN PRN Reason: psychosis Stop: 11/14/18 15:22 Last Admin: 10/22/18 10:06 Dose: 2.5 mg Documented by: Haloperidol (Haldol) 5 mg PO HS [facility] Stop: 11/24/18 21:59 Last Admin: 10/26/18 20:43 Dose: 5 mg Documented by: Haloperidol (Haldol) 2.5 mg PO [id number] [facility] Stop: 11/24/18 13:59 Last Admin: 10/27/18 13:52 Dose: 2.5 mg Documented by: Hydroxyzine HCl (Vistaril) 25 mg PO Q4H PRN PRN Reason: Anxiety Stop: 11/05/18 01:21 Last Admin: 10/12/18 10:04 Dose: 25 mg Documented by: Lamotrigine (Lamictal) 50 mg PO QAM [facility] Stop: 11/21/18 08:59 Last Admin: 10/27/18 07:55 Dose: 50 mg Documented by: [place] Carbonate ([place] Carbonate) 300 mg PO BID [facility] Stop: 11/26/18 11:44 Last Admin: 10/27/18 12:52 Dose: 300 mg Documented by: Lorazepam (Ativan) 2 mg IM TID PRN PRN Reason: catatonia Stop: 11/16/18 07:54 Lorazepam (Ativan) 1.5 mg PO TID [facility] Stop: 11/22/18 20:59 Last Admin: 10/27/18 13:52 Dose: 1.5 mg Documented by: Magnesium Hydroxide (Milk Of Magnesia) 30 ml PO DAILY PRN PRN Reason: Heartburn Stop: 11/05/18 01:21 Last Admin: 10/20/18 11:28 Dose: 30 ml Documented by: Mirtazapine (Remeron) 15 mg PO HS [facility] Stop: 11/09/18 21:59 Last Admin: 10/26/18 20:44 Dose: 15 mg Documented by: Morphine Sulfate (Ms Contin) 15 mg PO HS [facility] Stop: 10/31/18 21:59 Last Admin: 10/26/18 20:43 Dose: 15 mg Documented by: Multivitamins (Multivitamin Tab) 1 tab PO QAM [facility] Stop: 11/05/18 08:59 Last Admin: 10/27/18 07:55 Dose: 1 tab Documented by: Nicotine (Nicoderm Cq) 21 mg TD QAM [facility] Stop: 11/05/18 08:59 Last Admin: 10/27/18 07:55 Dose: 21 mg Documented by: Nicotine Polacrilex (Nicorette 2mg) 1 piece MT UD PRN PRN Reason: Nicotine Withdrawal Stop: 11/05/18 01:21 Sodium Chloride ([place] Nasal) 1 - 2 sprays NA PRN PRN PRN Reason: Nasal Dryness/Congestion Stop: 11/05/18 01:21 Tolterodine Tartrate (Detrol) 2 mg PO BID [facility] Stop: 11/22/18 09:29 Last Admin: 10/27/18 07:54 Dose: 2 mg Documented by: Mental Health & Subst Abuse Tx Psychiatrist Name of Psychiatrist: Kim Borden Psychiatrist's Date of Appointment with Psychiatrist: 11/07/18 Time of Appointment with Psychiatrist: 1:35 p.m. Psychiatric Appointment Comment: [address] [facility], [place], [place] Therapist Name of Therapist: Kim Weiner Therapist's Date of Therapist Appointment: 11/01/18 Time of Therapist Appointment: 2:00 p.m. Therapy Appointment Comment: [address], [place], [place] Telephone Answerer Name of Telephone Answerer: None Post Discharge Appointments Primary Care Physician Name Of Family Doctor: [facility] - Dr. Yovany Davis Primary Care Date of Appointment with PCP: 11/05/18 Time of Appointment with PCP: 8:30 a.m. Provider Appointment Comment: [address], [address], [place] Contact Information Discharge Discharge Address: [address] [place] [address] CPT Code CPT Code 41674 (1) Bipolar disorder Active/Remission status: currently active Current bipolar episode type: depressed Current episode severity: severe Psychotic features: with psychotic features Qualified Code(s): F31.5 - Bipolar disorder, current episode depressed, severe, with psychotic features
[2018-10-27] MEDS: MIRTAZAPINE TAB 15 MG TAB PO SCH (21:23)
[2018-10-27] MEDS: MoRPHine SULFATE CR 15 MG TABCR PO SCH (21:23)
[2018-10-28] MEDS: HALOPERIDOL 5 MG TAB PO SCH ×3 (06:51→20:58)
[2018-10-28] MEDS: TOLTERODINE TARTRATE 2 MG TAB PO SCH ×2 (08:12→20:58)
[2018-10-28] MEDS: lamoTRIgine 25 MG TAB PO SCH (08:13)
[2018-10-28] MEDS: LITHIUM CARBONATE 300 MG TAB PO SCH ×2 (08:13→20:58)
[2018-10-28] MEDS: MULTIVITAMIN TAB PO SCH (08:13)
[2018-10-28] MEDS: ATORVASTATIN 20 MG TAB PO SCH (08:13)
[2018-10-28] MEDS: AMANTADINE HCL 100 MG CAPSULE PO SCH ×3 (08:14→20:58)
[2018-10-28] MEDS: NICOTINE 21 MG/24 HR TDSY TD SCH (08:20)
[2018-10-28] MEDS: LORazepam 0.5 MG TAB PO SCH ×3 (08:25→20:58)
--- NOTE | 2018-10-28 15:06 | Psychiatric Progress Note ---
Date of Service October 28, 2018 Impression / Recommendations Impression 58y/o female with bipolar disorder who presented with depression, anxiety, and SI in the context of poor p.o. intake, underweight with BMI of 15.4, and perseveration on delusions that she is going to at any moment, consistently stating she will not make it through the day. She had just been discharged from [facility] 5 days prior to admission, where she was treated for similar symptoms, but was noncompliant with medications after discharge, not believing she needed them. Multiple medication changes have been made to address mood, anxiety, psychosis, and sleep: Initially Depakote was discontinued, olanzapine 10 mg at bedtime continued, and mirtazapine started; but due to concerns for akathisia, olanzapine was discontinued in favor of quetiapine, and lamotrigine was started for bipolar depression. Her mood, psychosis, and anxiety worsened, she refused medications for several days, tried to leave the unit, was not eating or drinking and lost weight (BMI 15.1), was not able to participate in treatment or respond to staff, and ultimately had to be placed on a 302 involuntary commitment on 10/16/2018 given her inability to to give informed consent for treatment and the potential need to inject her with benzodiazepines to treat catatonia. She is improved briefly with the addition of lorazepam, and was better able to participate in treatment - signing back in voluntarily prior to expiration of her involuntary commitment. As patient's condition has been worsening, medication adjustments were made - favoring haloperidol over quetiapine, to which response had been limited. Patient receiving 2.5m g/2.5mg/5mg of haloperidol. Inpatient treatment remains medically necessary due to the severity of her symptoms, and ability to provide for her own basic needs without inpatient level of care, and risk for harm to herself if discharged. (1) Suicidal ideation: 10/06 and 10/07 - inpatient is least restrictive and most appropriate setting for care given multiple risk factors, passive SI, hopelessness, pain, poor sleep, restlessness. 10/08 -patient endorsing suicidal thoughts with a plan to starve herself, and reports that she has been restricting intake with unknown amount of weight loss. She is underweight with BMI 15.4. Continue to monitor p.o. intake and encourage good nutrition. 10/09 - Pt denies active SI, but continues to believe that she is "reaching the end" and that is imminent, which further contributes to her anxiety 10/11 -today patient is reporting to harm herself, and states that she would "probably" tried to end her life if she were not in the hospital. 10/12 - The patient reports today that she does not feel that it will be necessary for her to commit suicide because she is to be put to in the morning by lethal injection. 10/16 -patient is eating very little, not drinking, stating alternatively that she will at any moment or that she is already . 10/17- Mood, SI, and psychosis improving. 10/24 - Reporting "I'm suicidal" today; however, states this is more so frustration and inability to go on if her condition does not improve 10/25 - Continues to states she is "suicidal" - though denies desire to end her life, thoughts to harm herself, plan, or intent 10/26 - Denies suicidal ideation today 10/28 -Continues to deny suicidal ideation (2) Bipolar disorder: 10/06 - She had been stable for many years on Zyprexa +/- Depakote and trazodone although occasional low moods often seasonally mediated and anxiety at times failing Cymbalta due to PANIAGUA's. Given this history I would like to keep her on a mood stabilizer but am concerned about hair loss and tremor and possible compounded cognitive impairment with Depakote so I held this, so will keep Zyprexa 10mg for now.stop Depakote, continue Zyprexa 10mg, start Remeron 15mg/hs 10/07 - stopped zyprexa to r/o akathisia (5mg tonight then off), returned to Seroquel (due to sedation stopped Remeron as well) 100mg tonight then 200mg thereafter with hope would stabilize, help depression and off label help sleep and anxiety, initial target dose if 200mg watching to assure not too fatigued as per last trial t 300mg when she had enuresis and daytime fatigue. She is now at lowered dose of morphine so fatigue and oversedation less likely Strongly consider Lamictal for mood stabilization, due to h/o break through depression on Seroquel in the noel, titration briefly discussed today but patient was too overwhelmed to consent. 10/08 -Continue quetiapine 200 mg at bedtime, and at 50 mg as needed dose for sleep. Reviewed the risks, benefits, and side effects of lamotrigine, which was also reviewed with her yesterday, including the risk of serious rash/SJS. She agreed to a trial, and will start 25 mg daily. -Order fasting labs for monitoring on an atypical antipsychotic. 10/09 - Planning to initiate quetiapine 25mg BID at 0900 and 1400; will order 25mg q4h prn for anxiety/disorganized thoughts. Will continue quetiapine 200mg at bedtime with 50mg additional dose as needed for sleep. - Will attempt to get fasting labs tomorrow morning, as patient had eaten overnight and the blood test could not be completed today - Continue lamotrigine 25mg daily 10/10 - Will titrate daytime doses of quetiapine to 50mg BID with continued 200mg/50mg bedtime dosing - Continue lamotrigine 25mg daily - Will restart mirtazapine at 15mg as patient continues to experience insomnia, receiving only 1.75 hours of sleep last evening 10/11 -Continue current medications; quetiapine just increased yesterday with scheduled dosing throughout the day as well as as needed dose; continue to titrate to effective dose. Sleep improved with resumption of mirtazapine. 10/13 hopefully can titrate Seroquel tomorrow. 10/14--doesn't appear that benefiting much from Seroquel, hesitant to titrate given sedation, tremor and gait. Appetite remains poor. Refused meds this am. Was losing weight on Zyprexa. Trial of a typical agent (haldol) may be appropriate, will defer to primary team. will note that if patient continues to refuse PO medications, she should receive meds over objection as or serious injury to self would come from psychotic disorder resulting in poor PO and she will not improve without such medication. Refusal of meds and level of psychosis would be indication for involuntary commitment. 10/15--patient refusing medications and not answering questions today. She did converse with the social welfare clerk and was able to eat, but was uncooperative with my attempt to interview her. She has not received quetiapine in 2 days. I will order haloperidol as needed, and consider a 302 involuntary commitment and medications over objection if she does not improve in the next 24 hours. -Patient appears more altered today. She has not had labs since 10/05/2018, so will order a CMP, CBC, and UA to rule out electrolyte abnormalities, UTI, and look for signs of infection or other medical issues that could contribute to deteriorating mental status/delirium. -Consider EEG. 10/16--patient refusing medications for the third day in a row, not eating very much, refusing to drink, and attempted to leave the unit last night. She is refusing all groups, and will not engage or talk with staff. She continues to state that she believes she is , or will at any moment. She has been in her bed most of the time, and does not respond to questions or commands. CBC, CMP, and UA were checked yesterday and were notable for elevated WBC 11.78, hemoglobin 17.2, hematocrit 47.2, elevated MCH and MCV HC. Total bilirubin was elevated at 1.1, and remainder of CMP was normal. UA showed 1+ ketones. Vital signs were normal this morning. Lab results do not indicate any active medical conditions contributing to her altered mental status and decreased responsiveness. Ketonuria does indicate starvation, and if she is already underweight with a BMI of 15.1, she is at risk if she continues to refuse to eat. Current symptoms are consistent with catatonia and I would like to do a lorazepam challenge; 1 mg p.o. stat was ordered, but the patient is refusing to take oral medications. We will need to use IM Lorazepam. As she is severely depressed, psychotic, catatonic, unable to appreciate the risks and benefits of treatment, and is refusing potentially life-saving treatment including medi cations, fluids, and food, we will proceed with a 302 involuntary commitment. 10/17--catatonia significantly improved, we will schedule Lorazepam 2 mg 3 times daily and taper as tolerated. --Continue lamotrigine, quetiapine, mirtazapine, and trihexyphenidyl as ordered, which she is now taking willingly. --Encourage group attendance and participation. Work on addressing stressors, including financial concerns, housing, and supports. Scheduled family meeting with son. --Work on discharge planning. 10/18 - Pt condition mildly worse today; however, still improved overall since admission - Due to concerns for sedation, lorazepam was reduced to 1mg TID - Continue lamotrigine, quetiapine, mirtazapine, and trihexyphenidyl as above - Son stopped in for family meeting later this morning 10/19 - Titrate HS dose of quetiapine to 250mg; continue quetiapine 50mg BID - Continue lorazepam 1mg TID - Continue lamotrigine, mirtazapine, and trihexyphenidyl 10/20 -Continue current medications. Frequent reassurance required, encourage patient to participate in groups and activities. 10/21 -Increase lamotrigine to 50 mg daily tomorrow, and in 2 more weeks can increase to 100 mg daily. -Limit as needed doses of Artane due to dry mouth and excessive thirst. 10/22 - Seroquel tapered to 100mg qHS and plans to utilize haloperidol as prominent antipsychotic medication based on response to prns - Haloperidol ordered 2.5mg TID to initiate, with continued availability to 2.5mg q4h prn - Discontinued Artane due to concern for ongoing excessive thirst contributing to urinary frequency/urgency - Initiated amantadine, 50mg initial dose with 100mg BID scheduled thereafter for EPS - May need to consider re-trail of lorazepam challenge if patient's condition does not improve with these adjustments 10/23 - Decrease quetiapine to 50mg HS and continue haloperidol 2.5mg tid and prn. Continue lorazepam mg tid. 10/24 - Discontinue quetiapine - Will order second dose of 2.5mg haloperidol to be available at bedtime if needed. - Lorazepam increased to 1.5mg TID yesterday 10/25 - 10/26 - Haloperidol titrated to 2.5mg/2.5mg/5mg today - 2.5mg doses remain available as needed throughout the day - Continue remainder of medication regimen as above - Sleep and appetite continue to be stable 10/27 -She seems to be demonstrating improved thought cohesion and less negative symptoms with titration of Haldol however complaining of mild EPS symptoms and reviewed that olanzapine was initially discontinued secondary to concern for EPS. Ultimately it might make sense to convert her back over to the olanzapine which has been a long-standing therapeutic intervention as it does have lower risk for EPS as compared to the Haldol but will defer this change for now secondary to recent interval improvement -reviewed compelling reasons to discontinue the Depakote at admission including concern for some cognitive slowing. Her Depakote level was within normal range. As it will take some time to titrate Lamictal, we discussed consideration for lithium trial, particularly given the neurotropic effects of lithium and the possibility that more adequate mood stabilization with lithium, possibly combined with continued Lamictal, will reduce need for antipsychotic longer term. She was agreeable to the lithium trial after review of risks and benefits in detail which included potential long-term impact on thyroid functioning and renal functioning. She was made aware of the need for regular lab work and agreeable. Start lithium carbonate 300 mg p.o. twice daily today. Lab order for lithium trough level in 5 days. 10/28 -Tolerating lithium start so far. Will defer additional changes to dose presently. (3) Akathisia: 10/06/18 - possibly neuroleptic induced, worsened by anxiety. Working theory is lowered dose of morphine uncovered akathisia caused by Zyprexa need to gather more history to consider need for AAP vs. mood stabilizer or both and prior response to other meds, would like to avoid anticholinergics given cognitive concerns 10/07/18 - she is having insomnia, needs mood stabilization and antidepressant, she did have some fatigue on 300mg but now on lowered dose of morphine. There were possibly two instances of enuresis but 200mg consistently was never tested over longer term for treatment, and given akathisia do not wish to use Clozaril and other AAP ongoing likelihood of akathisia so will retrial Seroquel titration to 200mg watching energy, and monitoring for nighttime urination. Patient affirms understanding history and current situation reviewed and she agrees with this plan as it supports multiple symptoms and leads to reduction of polypharmacy. 10/09 - Unclear if tremor and restlessness is true akathisia or related to anxiety - as it is not constant and appears to be worse when anxiety is highest - Continue to observe, but will refrain from treating with additional medication at this time - No evidence of cogwheeling or dystonia on physical exam 10/13 --EPS resolved with Artane 10/12 -Cogwheeling is present today on physical examination. The patient was given diphenhydramine 25 mg IM and is being observed. Her symptoms do appear to be consistent with akathisia, although they do appear to wax and wane. 10/16 -although cogwheeling and tremulousness continue, we are avoiding deliriogenic medications given her worsening mental status. 10/17--resume trihexyphenidyl 2 mg twice daily. 10/22 - Discontinued trihexyphenidyl - Initiated amantadine 100mg BID, beginning with 50mg dose this afternoon 10/23 - Continue amantadine and increase to 100mg tid 10/24 - Continue as above 10/28 -Patient again reporting reduced subjective restlessness. Might consider attempting to cut the amantadine and half or holding the Detrol as a trial if able. (4) Cognitive disorder: 10/06/18 - I am concerned about her cognition as her overall MMSE-like assessment was near normal outside of a few points, but her CLOX was notably poor indicating poor executive function concerns. Again I will need to review PCM's records to see what labs and studies have been done to r/u reversible causes of cognitive decline. TSH WNL, LFTs WNL. Furthermore morphine and zyprexa and residual VPA can contribute to poor cognition. Will add MVI for now to support. 10/07 - review of remainder of labs from Dr Davis cited in 10/07 note B12, cbc, CMP vit D all WNL, could be h/o alcohol, polypharmacy with narcotic and AAP, and VPA although the latter has been stopped. There are no focal findings on exam. CLOX I indicates frontal lobe/executive issues but no other obvious release signs or personality changes or overt disinhibition. Recommend referral to neuropsych testing at [facility] after discharge for further characterization of her deficits as they may be pseudo dementia of depression or medications or both. 10/12 -Cognitive testing currently is not possible, due to the degree of the patient's thought disorganization and psychotic thinking. 10/23 - Refer to [facility] for cognitive and neuropsych testing 10/28 -Discussed minimizing anticholinergic burden as above but will defer additional changes today as trend has been positive in last few days (5) Anxiety: 10/06/18 - remeron off label, zyprexa off label 10/07/18 - off remeron onto seroquel may have some off label help for sleep and anxiety, supportive therapy on milieu as patient works through some roots of anxiety in divulging her medication diversion 10/09 - Quetiapine 25mg BID at 0900 and 1400 - with prn doses available q4h prn - Continue supportive therapy and engage patient in groups and active coping strategies as able 10/10 - Titrating daytime doses of quetiapine to 50mg BID, continue prn dosing if necessary - Will restart mirtazapine at 15mg this evening to target insomnia and persistent ruminations regarding health and feelings of guilt - If restart of mirtazapine is over-sedating, can consider reducing dose to 7.5mg qHS 10/12 -The patient's underlying anxiety may be exacerbated seizure. She describes a restless, "jumpy" feeling much of the time. She also notes that it is sometimes difficult for her to swallow and her muscles feel "stiff." On examination, today, there is cogwheel rigidity. 10/19 - Titrating quetiapine for mood stabilization/ongoing delusions - off-label benefit for anxiety - Now 50mg qAM, 50mg in afternoon and 250mg qHS - Quetiapine 25mg remains available as needed 10/22 - Continue mirtazapine 15mg qHS - Haloperidol titrated (6) Chronic pain: 10/06/18 - continue home dose of morphine (if Remeron not effective for mood consider SNRI desvenlafaxine with caution) 10/07/18 - patient admits to real pain but taking her morphine less than prescribed for many years and up until recently diverting the rest for money, she states she has recently changed this practice but is concerned about how to tell her doctors and the emerging financial strain now that she is no longer diverting her medications. This is a major source of her anxiety, possibly contributing to depression and weight loss as well. - request the weekday team help her to tell her PCM and psychiatrist, and then to work out possible relationship with pain clinic for [place] or related opiate agonist/antagonist so that her pain can be treated and not diverted if possible. 10/08 -Patient too distraught, psychotic, and disorganized today to address this. 10/09 - Continues to verbalize pain; states it is manageable 10/11 -Patient endorses guilt at times related to selling her prescribed morphine, and this has not yet been addressed with her PCP, who is out of the office until next week. The patient remains to distraught and psychotic to process this, so will revisit it next week. 10/16 -Patient has refused morphine the last 2 days. If she resumes it at some point, may want to use a lower dose to avoid oversedation. 10/17 -Lower morphine dose to 15 mg at bedtime, and continue 15 mg as needed dose, as patient is now receiving scheduled lorazepam for catatonia, and want to avoid HOSPITAL WARD CLERK depression and oversedation. -Called Dr. Davis to review morphine misuse and his recs re: ongoing morphine/pain management. Spoke with his nurse, reviewed course of treatment thus far, and gave contact information for him to call if he has any further treatment recommendations. 10/18 - Dr. Davis returned phone call regarding the above concerns - he is agreeable with reduction of HS morphine to 15mg; he reports desire for a pain management referral for ongoing management - As patient has not consistently been utilizing prn Morphine IR, it was suggested the prn be held and replaced with acetaminophen 1,000mg up to 4x daily for pain - He suggested option of Icy Hot or Salonpas for more mild pain to avoid centrally acting medications if not necessary for severity of reported pain - we will see what is formulary - He was informed that patient has reported selling her morphine and is willing to rebuild therapeutic rapport with the patient after she is discharged 10/19 - Called pain management clinic in regard to referral - if consultation during admission would be desired - It is reported PCP would need to make referral to pain management clinic Inventory Assets Strengths: voluntary, good rapport with outpatient MD Needs: support, further medical record review and outpatient f/u Risk Factors Assessment Male: No : Yes Do You Have Access To A Gun?: No Health Problems: Yes Mental Health Diagnoses: Yes Substance Use Disorders: No Previous Attempt: No Family History of Suicide: No Previous Psychiatric Hospitalization: Yes Hopelessness: Yes Smoker: Yes Protective Factors Assessment Worship Beliefs: Yes : No Employed: No (Disability for back pain from [employer]) Good Rapport with Provider: Yes Interval History Identifying Information ALINA STONE is a 58-year-old F who currently lives in [place], has her own home but presently staying with a friend, who has a history of Bipolar disorder and was admitted on 10/06/18 00:28 on a 201 voluntary status for psychotic depression and suicidality. Her symptoms worsened and progressed to catatonia, and she was placed on a 302 involuntary commitment on 10/16/2018 due to unresponsiveness and inability to participate in or consent to treatment. Her condition has since improved and she was agreeable to sign in voluntarily. Chief Complaint "I am a worrier". Review of Systems Notes Denies increased dizziness or falls Sleep Information Total Hours of Sleep: 8.25 Sleep Comments: toileted at 0130 Meal Information Percent Meal Consumed - Breakfast: 100 Percent Meal Consumed - Lunch: 80 Percent Meal Consumed - Dinner: 80 Nutrition Comment: boost with lunch Subjective Subjective Patient was seen & assessed and interval progress reviewed with treatment team. Patient started on lithium yesterday. So far this appears well-tolerated. She remains anxious and expressing worry about pending discharge and associated logistics however her worry is certainly more logical and practical in its focus now. Her son is scheduled to visit on Monday. Responding well to reassurance. Reviewed she is on 2 anticholinergic agents and she is complaining of dry mouth and mild constipation. She describes feeling hopeful today and denies tolerability concerns associated with lithium initiation so far. Physical Exam Psychiatric Orientation: cooperative Apperance: appropriately dressed and appropriately groomed Eye Contact: good eye contact Motor Behavior: steady gait and station Speech: normal rate/rhythm/volume of speech Affect: + anxious affect Mood: + anxious mood Thought Process: goal directed thought process Thought Content: + preoccupation; no delusions Suicidal Thoughts: denies suicidal thoughts Insight: + fair insight Judgement: + fair judgement Vital Signs (Past 24 Hours) Last Vital Signs Temp 36.4 C L 10/28/18 06:59 Pulse 71 10/28/18 07:00 Resp 20 10/28/18 06:59 BP 109/70 10/28/18 07:00 Pulse Ox 98 10/06/18 01:41 See physical exam by Dr. East in the ER 10/05/18 which has been reviewed and accepted for purposes of this H&P Results & Data Current Inpatient Medications Current Inpatient Medications: Current Inpatient Medications Acetaminophen (Tylenol) 1,000 mg PO Q6H PRN PRN Reason: Headache or Minor Fever Stop: 11/17/18 18:47 Last Admin: 10/26/18 10:50 Dose: 1,000 mg Documented by: Al Hydrox/Mg Hydrox/Simethicone (Maalox) 30 ml PO Q4H PRN PRN Reason: GI Upset Stop: 11/05/18 01:21 Last Admin: 10/25/18 22:08 Dose: 30 ml Documented by: Amantadine HCl (Symmetrel) 100 mg PO TID [facility] Stop: 11/22/18 13:59 Last Admin: 10/28/18 14:47 Dose: 100 mg Documented by: Atorvastatin Calcium (Lipitor) 20 mg PO QAM [facility] Stop: 11/05/18 08:59 Last Admin: 10/28/18 08:13 Dose: 20 mg Documented by: Bismuth Subsalicylate (Kaopectate) 15 ml PO PRN PRN PRN Reason: Loose Stool Stop: 11/05/18 01:21 Haloperidol (Haldol) 2.5 mg PO Q4H PRN PRN Reason: psychosis Stop: 11/14/18 15:22 Last Admin: 10/22/18 10:06 Dose: 2.5 mg Documented by: Haloperidol (Haldol) 5 mg PO HS [facility] Stop: 11/24/18 21:59 Last Admin: 10/27/18 21:23 Dose: 5 mg Documented by: Haloperidol (Haldol) 2.5 mg PO [id number] [facility] Stop: 11/24/18 13:59 Last Admin: 10/28/18 14:29 Dose: 2.5 mg Documented by: Hydroxyzine HCl (Vistaril) 25 mg PO Q4H PRN PRN Reason: Anxiety Stop: 11/05/18 01:21 Last Admin: 10/12/18 10:04 Dose: 25 mg Documented by: Lamotrigine (Lamictal) 50 mg PO QAM [facility] Stop: 11/21/18 08:59 Last Admin: 10/28/18 08:13 Dose: 50 mg Documented by: Avenel Carbonate (Avenel Carbonate) 300 mg PO BID [facility] Stop: 11/26/18 11:44 Last Admin: 10/28/18 08:13 Dose: 300 mg Documented by: Lorazepam (Ativan) 2 mg IM TID PRN PRN Reason: catatonia Stop: 11/16/18 07:54 Lorazepam (Ativan) 1.5 mg PO TID [facility] Stop: 11/22/18 20:59 Last Admin: 10/28/18 14:29 Dose: 1.5 mg Documented by: Magnesium Hydroxide (Milk Of Magnesia) 30 ml PO DAILY PRN PRN Reason: Heartburn Stop: 11/05/18 01:21 Last Admin: 10/20/18 11:28 Dose: 30 ml Documented by: Mirtazapine (Remeron) 15 mg PO HS [facility] Stop: 11/09/18 21:59 Last Admin: 10/27/18 21:23 Dose: 15 mg Documented by: Morphine Sulfate (Ms Contin) 15 mg PO HS [facility] Stop: 10/31/18 21:59 Last Admin: 10/27/18 21:23 Dose: 15 mg Documented by: Multivitamins (Multivitamin Tab) 1 tab PO QAM SHUN Stop: 11/05/18 08:59 Last Admin: 10/28/18 08:13 Dose: 1 tab Documented by: Nicotine (Nicoderm Cq) 21 mg TD QAM [facility] Stop: 11/05/18 08:59 Last Admin: 10/28/18 08:20 Dose: 21 mg Documented by: Nicotine Polacrilex (Nicorette 2mg) 1 piece MT UD PRN PRN Reason: Nicotine Withdrawal Stop: 11/05/18 01:21 Sodium Chloride ([place] Nasal) 1 - 2 sprays NA PRN PRN PRN Reason: Nasal Dryness/Congestion Stop: 11/05/18 01:21 Tolterodine Tartrate (Detrol) 2 mg PO BID [facility] Stop: 11/22/18 09:29 Last Admin: 10/28/18 08:12 Dose: 2 mg Documented by: Mental Health & Subst Abuse Tx Psychiatrist Name of Psychiatrist: [facility] Duncan Borden Psychiatrist's Date of Appointment with Psychiatrist: 11/07/18 Time of Appointment with Psychiatrist: 1:35 p.m. Psychiatric Appointment Comment: [phone] [employer] [facility] [place], [place] Therapist Name of Therapist: [facility] Duncan Weiner Therapist's Date of Therapist Appointment: 11/01/18 Time of Therapist Appointment: 2:00 p.m. Therapy Appointment Comment: [phone] [facility], [place] Wealth Management Manager Name of Wealth Management Manager: None Post Discharge Appointments Primary Care Physician Name Of Family Doctor: [facility] - Dr. Yovany Davis Primary Care Date of Appointment with PCP: 11/05/18 Time of Appointment with PCP: 8:30 a.m. Provider Appointment Comment: [address], [address], [place] Contact Information Discharge Discharge Address: [address] [place] [address] CPT Code CPT Code 60307 (1) Bipolar disorder Active/Remission status: currently active Current bipolar episode type: depressed Current episode severity: severe Psychotic features: with psychotic features Qualified Code(s): F31.5 - Bipolar disorder, current episode depressed, severe, with psychotic features
[2018-10-28] MEDS: ACETAMINOPHEN 500 MG TAB PO PRN (15:09)
[2018-10-28] MEDS: MIRTAZAPINE TAB 15 MG TAB PO SCH (20:59)
[2018-10-28] MEDS: MoRPHine SULFATE CR 15 MG TABCR PO SCH (20:59)
[2018-10-29] MEDS: HALOPERIDOL 5 MG TAB PO SCH ×3 (06:47→20:25)
[2018-10-29] MEDS: LORazepam 0.5 MG TAB PO SCH (08:35)
[2018-10-29] MEDS: NICOTINE 21 MG/24 HR TDSY TD SCH (08:35)
[2018-10-29] MEDS: MULTIVITAMIN TAB PO SCH (08:36)
[2018-10-29] MEDS: ATORVASTATIN 20 MG TAB PO SCH (08:36)
[2018-10-29] MEDS: LITHIUM CARBONATE 300 MG TAB PO SCH ×2 (08:36→20:25)
[2018-10-29] MEDS: AMANTADINE HCL 100 MG CAPSULE PO SCH ×3 (08:36→20:26)
[2018-10-29] MEDS: lamoTRIgine 25 MG TAB PO SCH (08:36)
[2018-10-29] MEDS: TOLTERODINE TARTRATE 2 MG TAB PO SCH ×2 (08:42→20:26)
--- NOTE | 2018-10-29 10:04 | Psychiatric Progress Note ---
Date of Service October 29, 2018 Impression / Recommendations Impression 58y/o female with bipolar disorder who presented with depression, anxiety, and SI in the context of poor p.o. intake, underweight with BMI of 15.4, and perseveration on delusions that she is going to at any moment, consistently stating she will not make it through the day. She had just been discharged from [facility] 5 days prior to admission, where she was treated for similar symptoms, but was noncompliant with medications after discharge, not believing she needed them. Multiple medication changes have been made to address mood, anxiety, psychosis, and sleep: Initially Depakote was discontinued, olanzapine 10 mg at bedtime continued, and mirtazapine started; but due to concerns for akathisia, olanzapine was discontinued in favor of quetiapine, and lamotrigine was started for bipolar depression. Her mood, psychosis, and anxiety worsened, she refused medications for several days, tried to leave the unit, was not eating or drinking and lost weight (BMI 15.1), was not able to participate in treatment or respond to staff, and ultimately had to be placed on a 302 involuntary commitment on 10/16/2018 given her inability to to give informed consent for treatment and the potential need to inject her with benzodiazepines to treat catatonia. She is improved briefly with the addition of lorazepam, and was better able to participate in treatment - signing back in voluntarily prior to expiration of her involuntary commitment. As patient's condition has been worsening, medication adjustments were made - favoring haloperidol over quetiapine, to which response had been limited. Patient receiving 2.5m g/2.5mg/5mg of haloperidol. [place] was started for mood stabilization and has been tolerated. Lorazepam now being tapered as patient not to be discharged on benzodiazepines. Inpatient treatment remains medically necessary due to the severity of her symptoms, and ability to provide for her own basic needs without inpatient level of care, and risk for harm to herself if discharged. (1) Suicidal ideation: 10/06 and 10/07 - inpatient is least restrictive and most appropriate setting for care given multiple risk factors, passive SI, hopelessness, pain, poor sleep, restlessness. 10/08 -patient endorsing suicidal thoughts with a plan to starve herself, and reports that she has been restricting intake with unknown amount of weight loss. She is underweight with BMI 15.4. Continue to monitor p.o. intake and encourage good nutrition. 10/09 - Pt denies active SI, but continues to believe that she is "reaching the end" and that is imminent, which further contributes to her anxiety 10/11 -today patient is reporting to harm herself, and states that she would "probably" tried to end her life if she were not in the hospital. 10/12 - The patient reports today that she does not feel that it will be necessary for her to commit suicide because she is to be put to in the morning by lethal injection. 10/16 -patient is eating very little, not drinking, stating alternatively that she will at any moment or that she is already . 10/17- Mood, SI, and psychosis improving. 10/24 - Reporting "I'm suicidal" today; however, states this is more so frustration and inability to go on if her condition does not improve 10/25 - Continues to states she is "suicidal" - though denies desire to end her life, thoughts to harm herself, plan, or intent 10/26 - Denies suicidal ideation today 10/28 -Continues to deny suicidal ideation 10/29 - Patient continues to use the word "suicidal" to describe the feeling that she "may ", but consistently denies true suicidal ideation, plan, or intent to harm herself (2) Bipolar disorder: 10/06 - She had been stable for many years on Zyprexa +/- Depakote and trazodone although occasional low moods often seasonally mediated and anxiety at times failing Cymbalta due to PANIAGUA's. Given this history I would like to keep her on a mood stabilizer but am concer bridget about hair loss and tremor and possible compounded cognitive impairment with Depakote so I held this, so will keep Zyprexa 10mg for now.stop Depakote, continue Zyprexa 10mg, start Remeron 15mg/hs 10/07 - stopped zyprexa to r/o akathisia (5mg tonight then off), returned to Seroquel (due to sedation stopped Remeron as well) 100mg tonight then 200mg thereafter with hope would stabilize, help depression and off label help sleep and anxiety, initial target dose if 200mg watching to assure not too fatigued as per last trial t 300mg when she had enuresis and daytime fatigue. She is now at lowered dose of morphine so fatigue and oversedation less likely Strongly consider Lamictal for mood stabilization, due to h/o break through depression on Seroquel in the , titration briefly discussed today but patient was too overwhelmed to consent. 10/08 -Continue quetiapine 200 mg at bedtime, and at 50 mg as needed dose for sleep. Reviewed the risks, benefits, and side effects of lamotrigine, which was also reviewed with her yesterday, including the risk of serious rash/SJS. She agreed to a trial, and will start 25 mg daily. -Order fasting labs for monitoring on an atypical antipsychotic. 10/09 - Planning to initiate quetiapine 25mg BID at 0900 and 1400; will order 25mg q4h prn for anxiety/disorganized thoughts. Will continue quetiapine 200mg at bedtime with 50mg additional dose as needed for sleep. - Will attempt to get fasting labs tomorrow morning, as patient had eaten overnight and the blood test could not be completed today - Continue lamotrigine 25mg daily 10/10 - Will titrate daytime doses of quetiapine to 50mg BID with continued 200mg/50mg bedtime dosing - Continue lamotrigine 25mg daily - Will restart mirtazapine at 15mg as patient continues to experience insomnia, receiving only 1.75 hours of sleep last evening 10/11 -Continue current medications; quetiapine just increased yesterday with scheduled dosing throughout the day as well as as needed dose; continue to titrate to effective dose. Sleep improved with resumption of mirtazapine. 10/13 hopefully can titrate Seroquel tomorrow. 10/14--doesn't appear that benefiting much from Seroquel, hesitant to titrate given sedation, tremor and gait. Appetite remains poor. Refused meds this am. Was losing weight on Zyprexa. Trial of a typical agent (haldol) may be appropriate, will defer to primary team. will note that if patient continues to refuse PO medications, she should receive meds over objection as or serious injury to self would come from psychotic disorder resulting in poor PO and she will not improve without such medication. Refusal of meds and level of psychosis would be indication for involuntary commitment. 10/15--patient refusing medications and not answering questions today. She did converse with the social worker psychiatric and was able to eat, but was uncooperative with my attempt to interview her. She has not received quetiapine in 2 days. I will order haloperidol as needed, and consider a 302 involuntary commitment and medications over objection if she does not improve in the next 24 hours. -Patient appears more altered today. She has not had labs since 10/05/2018, so w ill order a CMP, CBC, and UA to rule out electrolyte abnormalities, UTI, and look for signs of infection or other medical issues that could contribute to deteriorating mental status/delirium. -Consider EEG. 10/16--patient refusing medications for the third day in a row, not eating very much, refusing to drink, and attempted to leave the unit last night. She is refusing all groups, and will not engage or talk with staff. She continues to state that she believes she is , or will at any moment. She has been in her bed most of the time, and does not respond to questions or commands. CBC, CMP, and UA were checked yesterday and were notable for elevated WBC 11.78, hemoglobin 17.2, hematocrit 47.2, elevated MCH and MCV HC. Total bilirubin was elevated at 1.1, and remainder of CMP was normal. UA showed 1+ ketones. Vital signs were normal this morning. Lab results do not indicate any active medical conditions contributing to her altered mental status and decreased responsiveness. Ketonuria does indicate starvation, and if she is already underweight with a BMI of 15.1, she is at risk if she continues to refuse to eat. Current symptoms are consistent with catatonia and I would like to do a lorazepam challenge; 1 mg p.o. stat was ordered, but the patient is refusing to take oral medications. We will need to use IM Lorazepam. As she is severely depressed, psychotic, catatonic, unable to appreciate the risks and benefits of treatment, and is refusing potentially life-saving treatment including medications, fluids, and food, we will proceed with a 302 involuntary commit ment. 10/17--catatonia significantly improved, we will schedule Lorazepam 2 mg 3 times daily and taper as tolerated. --Continue lamotrigine, quetiapine, mirtazapine, and trihexyphenidyl as ordered, which she is now taking willingly. --Encourage group attendance and participation. Work on addressing stressors, including financial concerns, housing, and supports. Scheduled family meeting with son. --Work on discharge planning. 10/18 - Pt condition mildly worse today; however, still improved overall since admission - Due to concerns for sedation, lorazepam was reduced to 1mg TID - Continue lamotrigine, quetiapine, mirtazapine, and trihexyphenidyl as above - Son stopped in for family meeting later this morning 10/19 - Titrate HS dose of quetiapine to 250mg; continue quetiapine 50mg BID - Continue lorazepam 1mg TID - Continue lamotrigine, mirtazapine, and trihexyphenidyl 10/20 -Continue current medications. Frequent reassurance required, encourage patient to participate in groups and activities. 10/21 -Increase lamotrigine to 50 mg daily tomorrow, and in 2 more weeks can increase to 100 mg daily. -Limit as needed doses of Artane due to dry mouth and excessive thirst. 10/22 - Seroquel tapered to 100mg qHS and plans to utilize haloperidol as prominent antipsychotic medication based on response to prns - Haloperidol ordered 2.5mg TID to initiate, with continued availability to 2.5mg q4h prn - Discontinued Artane due to concern for ongoing excessive thirst contributing to urinary frequency/urgency - Initiated amantadine, 50mg initial dose with 100mg BID scheduled thereafter for EPS - May need to consider re-trail of lorazepam challenge if patient's condition does not improve with these adjustments 10/23 - Decrease quetiapine to 50mg HS and continue haloperidol 2.5mg tid and prn. Continue lorazepam mg tid. 10/24 - Discontinue quetiapine - Will order second dose of 2.5mg haloperidol to be available at bedtime if needed. - Lorazepam increased to 1.5mg TID yesterday 10/25 - 10/26 - Haloperidol titrated to 2.5mg/2.5mg/5mg today - 2.5mg doses remain available as needed throughout the day - Continue remainder of medication regimen as above - Sleep and appetite continue to be stable 10/27 -She seems to be demonstrating improved thought cohesion and less negative symptoms with titration of Haldol however complaining of mild EPS symptoms and reviewed that olanzapine was initially discontinued secondary to concern for EPS. Ultimately it might make sense to convert her back over to the olanzapine which has been a long-standing therapeutic intervention as it does have lower risk for EPS as compared to the Haldol but will defer this change for now secondary to recent interval improvement -reviewed compelling reasons to discontinue the Depakote at admission including concern for some cognitive slowing. Her Depakote level was within normal range. As it will take some time to titrate Lamictal, we discussed consideration for lithium trial, particularly given the neurotropic effects of lithium and the possibility that more adequate mood stabilization with lithium, possibly combined with continued Lamictal, will reduce need for antipsychotic longer term. She was agreeable to the lithium trial after review of risks and benefits in detail which included potential long-term impact on thyroid functioning and renal functioning. She was made aware of the need for regular lab work and agreeable. Start lithium carbonate 300 mg p.o. twice daily today. Lab order for lithium trough level in 5 days. 10/28 -Tolerating lithium start so far. Will defer additional changes to dose presently. 10/29 - Will reduce lorazepam to 1mg TID to begin taper, as patient will not be discharged on benzodiazepines (history of misuse/diversion) - Otherwise, continue current medication regimen - Son to visit today; hopefully provider information on current proximity to baseline (3) Akathisia: 10/06/18 - possibly neuroleptic induced, worsened by anxiety. Working theory is lowered dose of morphine uncovered akathisia caused by Zyprexa need to gather more history to consider need for AAP vs. mood stabilizer or both and prior response to other meds, would like to avoid anticholinergics given cognitive concerns 10/07/18 - she is having insomnia, needs mood stabilization and antidepressant, she did have some fatigue on 300mg but now on lowered dose of morphine. There were possibly two instances of enuresis but 200mg consistently was never tested over longer term for treatment, and given akathisia do not wish to use Clozaril and other AAP ongoing likelihood of akathisia so will retrial Seroquel titration to 200mg watching energy, and monitoring for nighttime urination. Patient affirms understanding history and current situation reviewed and she agrees with this plan as it supports multiple symptoms and leads to reduction of polypharmacy. 10/09 - Unclear if tremor and restlessness is true akathisia or related to anxiety - as it is not constant and appears to be worse when anxiety is highest - Continue to observe, but will refrain from treating with additional medication at this time - No evidence of cogwheeling or dystonia on physical exam 10/13 --EPS resolved with Artane 10/12 -Cogwheeling is present today on physical examination. The patient was given diphenhydramine 25 mg IM and is being observed. Her symptoms do appear to be consistent with akathisia, although they do appear to wax and wane. 10/16 -although cogwheeling and tremulousness continue, we are avoiding deliriogenic medications given her worsening mental status. 10/17--resume trihexyphenidyl 2 mg twice daily. 10/22 - Discontinued trihexyphenidyl - Initiated amantadine 100mg BID, beginning with 50mg dose this afternoon 10/23 - Continue amantadine and increase to 100mg tid 10/24 - Continue as above 10/28 -Patient again reporting reduced subjective restlessness. Might consider attempting to cut the amantadine and half or holding the Detrol as a trial if able. (4) Cognitive disorder: 10/06/18 - I am concerned about her cognition as her overall MMSE-like assessment was near normal outside of a few points, but her CLOX was notably poor indicating poor executive function concerns. Again I will need to review PCM's records to see what labs and studies have been done to r/u reversible causes of cognitive decline. TSH WNL, LFTs WNL. Furthermore morphine and zyprexa and residual VPA can contribute to poor cognition. Will add MVI for now to support. 10/07 - review of remainder of labs from Dr Davis cited in 10/07 note B12, cbc, CMP vit D all WNL, could be h/o alcohol, polypharmacy with narcotic and AAP, and VPA although the latter has been stopped. There are no focal findings on exam. CLOX I indicates frontal lobe/executive issues but no other obvious release signs or personality changes or overt disinhibition. Recommend referral to neuropsych testing at [facility] after discharge for further characterization of her deficits as they may be pseudo dementia of depression or medications or both. 10/12 -Cognitive testing currently is not possible, due to the degree of the patient's thought disorganization and psychotic thinking. 10/23 - Refer to [facility] for cognitive and neuropsych testing 10/28 -Discussed minimizing anticholinergic burden as above but will defer additional changes today as trend has been positive in last few days (5) Anxiety: 10/06/18 - remeron off label, zyprexa off label 10/07/18 - off remeron onto seroquel may have some off label help for sleep and anxiety, supportive therapy on milieu as patient works through some roots of anxiety in divulging her medication diversion 10/09 - Quetiapine 25mg BID at 0900 and 1400 - with prn doses available q4h prn - Continue supportive therapy and engage patient in groups and active coping strategies as able 10/10 - Titrating daytime doses of quetiapine to 50mg BID, continue prn dosing if necessary - Will restart mirtazapine at 15mg this evening to target insomnia and persistent ruminations regarding health and feelings of guilt - If restart of mirtazapine is over-sedating, can consider reducing dose to 7.5mg qHS 10/12 -The patient's underlying anxiety may be exacerbated seizure. She describes a restless, "jumpy" feeling much of the time. She also notes that it is sometimes difficult for her to swallow and her muscles feel "stiff." On examination, today, there is cogwheel rigidity. 10/19 - Titrating quetiapine for mood stabilization/ongoing delusions - off-label benefit for anxiety - Now 50mg qAM, 50mg in afternoon and 250mg qHS - Quetiapine 25mg remains available as needed 10/22 - Continue mirtazapine 15mg qHS - Haloperidol titrated 10/29 - High-dose lorazepam trialed for likely catatonic presentation earlier in hospitalization, as condition is improving and it is not ideal that patient be discharged on benzodiazepines, we will begin taper - Lorazepam tapered to 1mg TID today; should not be discharged on lorazepam due to history of misuse/diversion of controlled substance (6) Chronic pain: 10/06/18 - continue home dose of morphine (if Remeron not effective for mood consider SNRI desvenlafaxine with caution) 10/07/18 - patient admits to real pain but taking her morphine less than prescribed for many years and up until recently diverting the rest for money, she states she has recently changed this practice but is concerned about how to tell her doctors and the emerging financial strain now that she is no longer diverting her medications. This is a major source of her anxiety, possibly contributing to depression and weight loss as well. - request the weekday team help her to tell her PCM and psychiatrist, and then to work out possible relationship with pain clinic for [place] or related opiate agonist/antagonist so that her pain can be treated and not diverted if possible. 10/08 -Patient too distraught, psychotic, and disorganized today to address this. 10/09 - Continues to verbalize pain; states it is manageable 10/11 -Patient endorses guilt at times related to selling her prescribed morphine, and this has not yet been addressed with her PCP, who is out of the office until next week. The patient remains to distraught and psychotic to process this, so will revisit it next week. 10/16 -Patient has refused morphine the last 2 days. If she resumes it at some point, may want to use a lower dose to avoid oversedation. 10/17 -Lower morphine dose to 15 mg at bedtime, and continue 15 mg as needed dose, as patient is now receiving scheduled lorazepam for catatonia, and want to avoid CELL [employer]ER depression and oversedation. -Called Dr. Davis to review morphine misuse and his recs re: ongoing morphine/pain management. Spoke with his nurse, reviewed course of treatment thus far, and gave contact information for him to call if he has any further treatment recommendations. 10/18 - Dr. Davis returned phone call regarding the above concerns - he is agreeable with reduction of HS morphine to 15mg; he reports desire for a pain management referral for ongoing management - As patient has not consistently been utilizing prn Morphine IR, it was suggested the prn be held and replaced with acetaminophen 1,000mg up to 4x daily for pain - He suggested option of I[place] or Salonpas for more mild pain to avoid centrally acting medications if not necessary for severity of reported pain - we will see what is formulary - He was informed that patient has reported selling her morphine and is willing to rebuild therapeutic rapport with the patient after she is discharged 10/19 - Called pain management clinic in regard to referral - if consultation during admission would be desired - It is reported PCP would need to make referral to pain management clinic Inventory Assets Strengths: voluntary, good rapport with outpatient MD Needs: support, further medical record review and outpatient f/u Risk Factors Assessment Male: No : Yes Do You Have Access To A Gun?: No Health Problems: Yes Mental Health Diagnoses: Yes Substance Use Disorders: No Previous Attempt: No Family History of Suicide: No Previous Psychiatric Hospitalization: Yes Hopelessness: Yes Smoker: Yes Protective Factors Assessment [employer] Beliefs: Yes : No Employed: No (Disability for back pain from [employer]) Good Rapport with Provider: Yes Interval History Identifying Information ALINA STONE is a 58-year-old F who currently lives in [facility], has her own home but presently staying with a friend, who has a history of Bipolar disorder and was admitted on 10/06/18 00:28 on a 201 voluntary status for psychotic depression and suicidality. Her symptoms worsened and progressed to catatonia, and she was placed on a 302 involuntary commitment on 10/16/2018 due to unresponsiveness and inability to participate in or consent to treatment. Her condition has since improved and she was agreeable to sign in voluntarily. Chief Complaint "I'm doing well. Just trying to read my Bible." Review of Systems Notes Constitutional: reports ongoing concern about low-weight Cardiovascular: denied Respiratory: denied Gastrointestinal: denied Genitourinary: reports ongoing episodes of incontinence Neurological: persistent leg restlessness Psychiatric: denies symptoms other than stated above Total of at least 10 systems reviewed, pertinent positives as above and in HPI. Sleep Information Total Hours of Sleep: 7.75 Sleep Comments: toileted at 0130 Meal Information Percent Meal Consumed - Breakfast: 100 Percent Meal Consumed - Lunch: 80 Percent Meal Consumed - Dinner: 100 Nutrition Comment: boost with lunch Subjective Subjective Patient was seen & assessed and interval progress reviewed with treatment team. Staff report the patient has been doing well. She continued to display some anxiety over the weekend, with episodes of appearing overwhelmed, but condition is improved overall. Pt is to meet with her son today to review bills and make payments. She is meeting with her casework manager tomorrow to discuss options for additional assistance within her home. Patient was seen today to assess progress since admission. Pt states she is "fine" and she is observed to be reading a Bible. Pt states she feels she is better able to focus recently. Pt reports noticing improvements overall, but states she is still concerned about "not hydrating enough." Pt states she is drinking regularly and is concerned as "it just keeps coming out, and I have accidents." Reviewed basics of physiology, reassuring her that if she is urinating regularly and the urine is not brightly colored or malodorous, it is likely her body is receiving adequate hydration. We did review that she will need to continue consistent fluid intake at home with recent initiation of lithium. Pt denies side effects from the init iation of this medication. Pt shares, "I'm feeling better, but sometimes I still think I'm on the brink of being suicidal." Pt clarifies that to her this means feeling that is coming - but not a desire to end her life, plan of action, or intent to harm herself. Pt states, "no, I'm trying to do the exact opposite, I don't want to ." Pt denies other acute needs or concerns today. She does verbalize that she does not yet feel she could successfully function at home independently. Physical Exam Psychiatric Orientation: alert, oriented x 3 and cooperative Apperance: appropriately dressed and appropriately groomed; + did not appear stated age (appearing older than stated age) Continues to appear very thin, improvements in measured weights Eye Contact: good eye contact Motor Behavior: steady gait and station and + tremor; + abnormal motor movements (demonstrate restlessness in legs while standing; shifting weight) Speech: normal rate/rhythm/volume of speech Affect: + anxious affect (though much improved), + blunted affect and mood congruent with affect Mood: + anxious mood (verbalizes worries regarding returning home, less ruminative) Thought Process: goal directed thought process and clear/coherent thought process Thought Content: reality based without delusions and + hopelessness (mild; regarding ability to function, life being over for her) Suicidal Thoughts: denies suicidal thoughts (uses the word "suicidal", but does not describe true suicidality), denies suicidal plan and denies suicidal intent Homicidal Thoughts: denies homicidal thoughts Hallucinations: no auditory hallucinations and no visual hallucinations Cognition: attention grossly intact and language grossly intact Estimated Intelligence: consistent with education level Insight: + impaired insight (though improving over time) Judgement: + impaired judgement (though improving over time) Vital Signs (Past 24 Hours) Last Vital Signs Temp 36.4 C L 10/29/18 07:01 Pulse 81 10/29/18 07:01 Resp 18 10/29/18 07:01 BP 97/63 L 10/29/18 07:01 Pulse Ox 98 10/06/18 01:41 Results & Data Current Inpatient Medications Current Inpatient Medications: Current Inpatient Medications Acetaminophen (Tylenol) 1,000 mg PO Q6H PRN PRN Reason: Headache or Minor Fever Stop: 11/17/18 18:47 Last Admin: 10/28/18 15:09 Dose: 1,000 mg Documented by: Al Hydrox/Mg Hydrox/Simethicone (Maalox) 30 ml PO Q4H PRN PRN Reason: GI Upset Stop: 11/05/18 01:21 Last Admin: 10/25/18 22:08 Dose: 30 ml Documented by: Amantadine HCl (Symmetrel) 100 mg PO TID [facility] Stop: 11/22/18 13:59 Last Admin: 10/29/18 08:36 Dose: 100 mg Documented by: Atorvastatin Calcium (Lipitor) 20 mg PO QAM [facility] Stop: 11/05/18 08:59 Last Admin: 10/29/18 08:36 Dose: 20 mg Documented by: Bismuth Subsalicylate (Kaopectate) 15 ml PO PRN PRN PRN Reason: Loose Stool Stop: 11/05/18 01:21 Haloperidol (Haldol) 2.5 mg PO Q4H PRN PRN Reason: psychosis Stop: 11/14/18 15:22 Last Admin: 10/22/18 10:06 Dose: 2.5 mg Documented by: Haloperidol (Haldol) 5 mg PO HS [facility] Stop: 11/24/18 21:59 Last Admin: 10/28/18 20:58 Dose: 5 mg Documented by: Haloperidol (Haldol) 2.5 mg PO [id number] [facility] Stop: 11/24/18 13:59 Last Admin: 10/29/18 06:47 Dose: 2.5 mg Documented by: Hydroxyzine HCl (Vistaril) 25 mg PO Q4H PRN PRN Reason: Anxiety Stop: 11/05/18 01:21 Last Admin: 10/12/18 10:04 Dose: 25 mg Documented by: Lamotrigine (Lamictal) 50 mg PO QAM [facility] Stop: 11/21/18 08:59 Last Admin: 10/29/18 08:36 Dose: 50 mg Documented by: [place] Carbonate ([place] Carbonate) 300 mg PO BID [facility] Stop: 11/26/18 11:44 Last Admin: 10/29/18 08:36 Dose: 300 mg Documented by: Lorazepam (Ativan) 2 mg IM TID PRN PRN Reason: catatonia Stop: 11/16/18 07:54 Lorazepam (Ativan) 1.5 mg PO TID [facility] Stop: 11/22/18 20:59 Last Admin: 10/29/18 08:35 Dose: 1.5 mg Documented by: Magnesium Hydroxide (Milk Of Magnesia) 30 ml PO DAILY PRN PRN Reason: Heartburn Stop: 11/05/18 01:21 Last Admin: 10/20/18 11:28 Dose: 30 ml Documented by: Mirtazapine (Remeron) 15 mg PO HS [facility] Stop: 11/09/18 21:59 Last Admin: 10/28/18 20:59 Dose: 15 mg Documented by: Morphine Sulfate (Ms Contin) 15 mg PO HS [facility] Stop: 10/31/18 21:59 Last Admin: 10/28/18 20:59 Dose: 15 mg Documented by: Multivitamins (Multivitamin Tab) 1 tab PO QAM [facility] Stop: 11/05/18 08:59 Last Admin: 10/29/18 08:36 Dose: 1 tab Documented by: Nicotine (Nicoderm Cq) 21 mg TD QAM [facility] Stop: 11/05/18 08:59 Last Admin: 10/29/18 08:35 Dose: 21 mg Documented by: Nicotine Polacrilex (Nicorette 2mg) 1 piece MT UD PRN PRN Reason: Nicotine Withdrawal Stop: 11/05/18 01:21 Sodium Chloride ([place] Nasal) 1 - 2 sprays NA PRN PRN PRN Reason: Nasal Dryness/Congestion Stop: 11/05/18 01:21 Tolterodine Tartrate (Detrol) 2 mg PO BID [facility] Stop: 11/22/18 09:29 Last Admin: 10/29/18 08:42 Dose: 2 mg Documented by: Mental Health & Subst Abuse Tx Psychiatrist Name of Psychiatrist: [facility] - Dr. Borden Psychiatrist's Date of Appointment with Psychiatrist: 11/07/18 Time of Appointment with Psychiatrist: 1:35 p.m. Psychiatric Appointment Comment: [address], [place], [place] Therapist Name of Therapist: [facility] - Manuel Weiner Therapist's Date of Therapist Appointment: 11/01/18 Time of Therapist Appointment: 2:00 p.m. Therapy Appointment Comment: [address] [place] Material Planning Analyst Name of Material Planning Analyst: None Post Discharge Appointments Primary Care Physician Name Of Family Doctor: [facility] - Dr. Yovany Davis Primary Care Date of Appointment with PCP: 11/05/18 Time of Appointment with PCP: 8:30 a.m. Provider Appointment Comment: [address], [address], [place] Other #1: Name of Aftercare Appointment: [facility] Material Planning Analyst - Margi Santana Phone Number of Aftercare Appointment: [phone] Aftercare Appointment Comment: A resource from your insurance company. No obligation or cost to utilize. Contact Information Discharge Discharge Address: [address] [place] [address] CPT Code CPT Code 51873 (1) Bipolar disorder Active/Remission status: currently active Current bipolar episode type: depressed Current episode severity: severe Psychotic features: with psychotic features Qualified Code(s): F31.5 - Bipolar disorder, current episode depressed, severe, with psychotic features
[2018-10-29] MEDS: LORazepam 1 MG TAB PO SCH ×2 (13:58→20:27)
[2018-10-29] MEDS: MIRTAZAPINE TAB 15 MG TAB PO SCH (20:25)
[2018-10-29] MEDS: MoRPHine SULFATE CR 15 MG TABCR PO SCH (20:26)
[2018-10-30] MEDS: HALOPERIDOL 5 MG TAB PO SCH ×3 (06:47→20:33)
[2018-10-30] MEDS: LORazepam 1 MG TAB PO SCH (08:04)
[2018-10-30] MEDS: TOLTERODINE TARTRATE 2 MG TAB PO SCH ×2 (08:04→20:33)
[2018-10-30] MEDS: MULTIVITAMIN TAB PO SCH (08:05)
[2018-10-30] MEDS: lamoTRIgine 25 MG TAB PO SCH (08:05)
[2018-10-30] MEDS: ATORVASTATIN 20 MG TAB PO SCH (08:05)
[2018-10-30] MEDS: LITHIUM CARBONATE 300 MG TAB PO SCH ×2 (08:05→20:34)
[2018-10-30] MEDS: NICOTINE 21 MG/24 HR TDSY TD SCH (08:06)
[2018-10-30] MEDS: AMANTADINE HCL 100 MG CAPSULE PO SCH ×3 (08:06→20:34)
[2018-10-30] MEDS ORDERED: LORazepam 0.5 MG TAB PO SCH (09:00)
--- NOTE | 2018-10-30 11:14 | Psychiatric Progress Note ---
Date of Service October 30, 2018 Impression / Recommendations Impression 58y/o female with bipolar disorder who presented with depression, anxiety, and SI in the context of poor p.o. intake, underweight with BMI of 15.4, and perseveration on delusions that she is going to at any moment, consistently stating she will not make it through the day. She had just been discharged from [facility] 5 days prior to admission, where she was treated for similar symptoms, but was noncompliant with medications after discharge, not believing she needed them. Multiple medication changes have been made to address mood, anxiety, psychosis, and sleep: Initially Depakote was discontinued, olanzapine 10 mg at bedtime continued, and mirtazapine started; but due to concerns for akathisia, olanzapine was discontinued in favor of quetiapine, and lamotrigine was started for bipolar depression. Her mood, psychosis, and anxiety worsened, she refused medications for several days, tried to leave the unit, was not eating or drinking and lost weight (BMI 15.1), was not able to participate in treatment or respond to staff, and ultimately had to be placed on a 302 involuntary commitment on 10/16/2018 given her inability to to give informed consent for treatment and the potential need to inject her with benzodiazepines to treat catatonia. She is improved briefly with the addition of lorazepam, and was better able to participate in treatment - signing back in voluntarily prior to expiration of her involuntary commitment. As patient's condition has been worsening, medication adjustments were made - favoring haloperidol over quetiapine, to which response had been limited. Patient receiving 2.5m g/2.5mg/5mg of haloperidol. [place] was started for mood stabilization and has been tolerated. Lorazepam now being tapered as patient not to be discharged on benzodiazepines. Inpatient treatment remains medically necessary due to the severity of her symptoms, and ability to provide for her own basic needs without inpatient level of care, and risk for harm to herself if discharged. (1) Suicidal ideation: 10/06 and 10/07 - inpatient is least restrictive and most appropriate setting for care given multiple risk factors, passive SI, hopelessness, pain, poor sleep, restlessness. 10/08 -patient endorsing suicidal thoughts with a plan to starve herself, and reports that she has been restricting intake with unknown amount of weight loss. She is underweight with BMI 15.4. Continue to monitor p.o. intake and encourage good nutrition. 10/09 - Pt denies active SI, but continues to believe that she is "reaching the end" and that is imminent, which further contributes to her anxiety 10/11 -today patient is reporting to harm herself, and states that she would "probably" tried to end her life if she were not in the hospital. 10/12 - The patient reports today that she does not feel that it will be necessary for her to commit suicide because she is to be put to in the morning by lethal injection. 10/16 -patient is eating very little, not drinking, stating alternatively that she will at any moment or that she is already . 10/17- Mood, SI, and psychosis improving. 10/24 - Reporting "I'm suicidal" today; however, states this is more so frustration and inability to go on if her condition does not improve 10/25 - Continues to states she is "suicidal" - though denies desire to end her life, thoughts to harm herself, plan, or intent 10/26 - Denies suicidal ideation today 10/28 -Continues to deny suicidal ideation 10/29 - Patient continues to use the word "suicidal" to describe the feeling that she "may ", but consistently denies true suicidal ideation, plan, or intent to harm herself (2) Bipolar disorder: 10/06 - She had been stable for many years on Zyprexa +/- Depakote and trazodone although occasional low moods often seasonally mediated and anxiety at times failing Cymbalta due to PANIAGUA's. Given this history I would like to keep her on a mood stabilizer but am concer bridegt about hair loss and tremor and possible compounded cognitive impairment with Depakote so I held this, so will keep Zyprexa 10mg for now.stop Depakote, continue Zyprexa 10mg, start Remeron 15mg/hs 10/07 - stopped zyprexa to r/o akathisia (5mg tonight then off), returned to Seroquel (due to sedation stopped Remeron as well) 100mg tonight then 200mg thereafter with hope would stabilize, help depression and off label help sleep and anxiety, initial target dose if 200mg watching to assure not too fatigued as per last trial t 300mg when she had enuresis and daytime fatigue. She is now at lowered dose of morphine so fatigue and oversedation less likely Strongly consider Lamictal for mood stabilization, due to h/o break through depression on Seroquel in the , titration briefly discussed today but patient was too overwhelmed to consent. 10/08 -Continue quetiapine 200 mg at bedtime, and at 50 mg as needed dose for sleep. Reviewed the risks, benefits, and side effects of lamotrigine, which was also reviewed with her yesterday, including the risk of serious rash/SJS. She agreed to a trial, and will start 25 mg daily. -Order fasting labs for monitoring on an atypical antipsychotic. 10/09 - Planning to initiate quetiapine 25mg BID at 0900 and 1400; will order 25mg q4h prn for anxiety/disorganized thoughts. Will continue quetiapine 200mg at bedtime with 50mg additional dose as needed for sleep. - Will attempt to get fasting labs tomorrow morning, as patient had eaten overnight and the blood test could not be completed today - Continue lamotrigine 25mg daily 10/10 - Will titrate daytime doses of quetiapine to 50mg BID with continued 200mg/50mg bedtime dosing - Continue lamotrigine 25mg daily - Will restart mirtazapine at 15mg as patient continues to experience insomnia, receiving only 1.75 hours of sleep last evening 10/11 -Continue current medications; quetiapine just increased yesterday with scheduled dosing throughout the day as well as as needed dose; continue to titrate to effective dose. Sleep improved with resumption of mirtazapine. 10/13 hopefully can titrate Seroquel tomorrow. 10/14--doesn't appear that benefiting much from Seroquel, hesitant to titrate given sedation, tremor and gait. Appetite remains poor. Refused meds this am. Was losing weight on Zyprexa. Trial of a typical agent (haldol) may be appropriate, will defer to primary team. will note that if patient continues to refuse PO medications, she should receive meds over objection as or serious injury to self would come from psychotic disorder resulting in poor PO and she will not improve without such medication. Refusal of meds and level of psychosis would be indication for involuntary commitment. 10/15--patient refusing medications and not answering questions today. She did converse with the licensed clinical social worker and was able to eat, but was uncooperative with my attempt to interview her. She has not received quetiapine in 2 days. I will order haloperidol as needed, and consider a 302 involuntary commitment and medications over objection if she does not improve in the next 24 hours. -Patient appears more altered today. She has not had labs since 10/05/2018, so w ill order a CMP, CBC, and UA to rule out electrolyte abnormalities, UTI, and look for signs of infection or other medical issues that could contribute to deteriorating mental status/delirium. -Consider EEG. 10/16--patient refusing medications for the third day in a row, not eating very much, refusing to drink, and attempted to leave the unit last night. She is refusing all groups, and will not engage or talk with staff. She continues to state that she believes she is , or will at any moment. She has been in her bed most of the time, and does not respond to questions or commands. CBC, CMP, and UA were checked yesterday and were notable for elevated WBC 11.78, hemoglobin 17.2, hematocrit 47.2, elevated MCH and MCV HC. Total bilirubin was elevated at 1.1, and remainder of CMP was normal. UA showed 1+ ketones. Vital signs were normal this morning. Lab results do not indicate any active medical conditions contributing to her altered mental status and decreased responsiveness. Ketonuria does indicate starvation, and if she is already underweight with a BMI of 15.1, she is at risk if she continues to refuse to eat. Current symptoms are consistent with catatonia and I would like to do a lorazepam challenge; 1 mg p.o. stat was ordered, but the patient is refusing to take oral medications. We will need to use IM Lorazepam. As she is severely depressed, psychotic, catatonic, unable to appreciate the risks and benefits of treatment, and is refusing potentially life-saving treatment including medications, fluids, and food, we will proceed with a 302 involuntary commit ment. 10/17--catatonia significantly improved, we will schedule Lorazepam 2 mg 3 times daily and taper as tolerated. --Continue lamotrigine, quetiapine, mirtazapine, and trihexyphenidyl as ordered, which she is now taking willingly. --Encourage group attendance and participation. Work on addressing stressors, including financial concerns, housing, and supports. Scheduled family meeting with son. --Work on discharge planning. 10/18 - Pt condition mildly worse today; however, still improved overall since admission - Due to concerns for sedation, lorazepam was reduced to 1mg TID - Continue lamotrigine, quetiapine, mirtazapine, and trihexyphenidyl as above - Son stopped in for family meeting later this morning 10/19 - Titrate HS dose of quetiapine to 250mg; continue quetiapine 50mg BID - Continue lorazepam 1mg TID - Continue lamotrigine, mirtazapine, and trihexyphenidyl 10/20 -Continue current medications. Frequent reassurance required, encourage patient to participate in groups and activities. 10/21 -Increase lamotrigine to 50 mg daily tomorrow, and in 2 more weeks can increase to 100 mg daily. -Limit as needed doses of Artane due to dry mouth and excessive thirst. 10/22 - Seroquel tapered to 100mg qHS and plans to utilize haloperidol as prominent antipsychotic medication based on response to prns - Haloperidol ordered 2.5mg TID to initiate, with continued availability to 2.5mg q4h prn - Discontinued Artane due to concern for ongoing excessive thirst contributing to urinary frequency/urgency - Initiated amantadine, 50mg initial dose with 100mg BID scheduled thereafter for EPS - May need to consider re-trail of lorazepam challenge if patient's condition does not improve with these adjustments 10/23 - Decrease quetiapine to 50mg HS and continue haloperidol 2.5mg tid and prn. Continue lorazepam mg tid. 10/24 - Discontinue quetiapine - Will order second dose of 2.5mg haloperidol to be available at bedtime if needed. - Lorazepam increased to 1.5mg TID yesterday 10/25 - 10/26 - Haloperidol titrated to 2.5mg/2.5mg/5mg today - 2.5mg doses remain available as needed throughout the day - Continue remainder of medication regimen as above - Sleep and appetite continue to be stable 10/27 -She seems to be demonstrating improved thought cohesion and less negative symptoms with titration of Haldol however complaining of mild EPS symptoms and reviewed that olanzapine was initially discontinued secondary to concern for EPS. Ultimately it might make sense to convert her back over to the olanzapine which has been a long-standing therapeutic intervention as it does have lower risk for EPS as compared to the Haldol but will defer this change for now secondary to recent interval improvement -reviewed compelling reasons to discontinue the Depakote at admission including concern for some cognitive slowing. Her Depakote level was within normal range. As it will take some time to titrate Lamictal, we discussed consideration for lithium trial, particularly given the neurotropic effects of lithium and the possibility that more adequate mood stabilization with lithium, possibly combined with continued Lamictal, will reduce need for antipsychotic longer term. She was agreeable to the lithium trial after review of risks and benefits in detail which included potential long-term impact on thyroid functioning and renal functioning. She was made aware of the need for regular lab work and agreeable. Start lithium carbonate 300 mg p.o. twice daily today. Lab order for lithium trough level in 5 days. 10/28 -Tolerating lithium start so far. Will defer additional changes to dose presently. 10/29 - Will reduce lorazepam to 1mg TID to begin taper, as patient will not be discharged on benzodiazepines (history of misuse/diversion) - Otherwise, continue current medication regimen - Son to visit today; hopefully provider information on current proximity to baseline 10/30 - Lorazepam reduced to 0.5mg TID in preparation for discharge; patient's condition has continued to be stable - Continue remainder of current medication regimen - Son feels patient is functioning well; comfortable with discharge when patient feels ready (3) Akathisia: 10/06/18 - possibly neuroleptic induced, worsened by anxiety. Working theory is lowered dose of morphine uncovered akathisia caused by Zyprexa need to gather more history to consider need for AAP vs. mood stabilizer or both and prior response to other meds, would like to avoid anticholinergics given cognitive concerns 10/07/18 - she is having insomnia, needs mood stabilization and antidepressant, she did have some fatigue on 300mg but now on lowered dose of morphine. There were possibly two instances of enuresis but 200mg consistently was never tested over longer term for treatment, and given akathisia do not wish to use Clozaril and other AAP ongoing likelihood of akathisia so will retrial Seroquel titration to 200mg watching energy, and monitoring for nighttime urination. Patient affirms understanding history and current situation reviewed and she agrees with this plan as it supports multiple symptoms and leads to reduction of polypharmacy. 10/09 - Unclear if tremor and restlessness is true akathisia or related to anxiety - as it is not constant and appears to be worse when anxiety is highest - Continue to observe, but will refrain from treating with additional medication at this time - No evidence of cogwheeling or dystonia on physical exam 10/13 --EPS resolved with Artane 10/12 -Cogwheeling is present today on physical examination. The patient was given diphenhydramine 25 mg IM and is being observed. Her symptoms do appear to be consistent with akathisia, although they do appear to wax and wane. 10/16 -although cogwheeling and tremulousness continue, we are avoiding deliriogenic medications given her worsening mental status. 10/17--resume trihexyphenidyl 2 mg twice daily. 10/22 - Discontinued trihexyphenidyl - Initiated amantadine 100mg BID, beginning with 50mg dose this afternoon 10/23 - Continue amantadine and increase to 100mg tid 10/24 - Continue as above 10/28 -Patient again reporting reduced subjective restlessness. Might consider attempting to cut the amantadine and half or holding the Detrol as a trial if able. 10/30 - Reporting improvement in restlessness (4) Cognitive disorder: 10/06/18 - I am concerned about her cognition as her overall MMSE-like assessment was near normal outside of a few points, but her CLOX was notably poor indicating poor executive function concerns. Again I will need to review PCM's records to see what labs and studies have been done to r/u reversible causes of cognitive decline. TSH WNL, LFTs WNL. Furthermore morphine and zyprexa and residual VPA can contribute to poor cognition. Will add MVI for now to support. 10/07 - review of remainder of labs from Dr Davis cited in 10/07 note B12, cbc, CMP vit D all WNL, could be h/o alcohol, polypharmacy with narcotic and AAP, and VPA although the latter has been stopped. There are no focal findings on exam. CLOX I indicates frontal lobe/executive issues but no other obvious release signs or personality changes or overt disinhibition. Recommend referral to neuropsych testing at [facility] after discharge for further characterization of her deficits as they may be pseudo dementia of depression or medications or both. 10/12 -Cognitive testing currently is not possible, due to the degree of the patient's thought disorganization and psychotic thinking. 10/23 - Refer to [facility] for cognitive and neuropsych testing 10/28 -Discussed minimizing anticholinergic burden as above but will defer additional changes today as trend has been positive in last few days 10/30 - MoCA performed today; patient performed with mild deficit in verbal fluency (stated 10 words; cut off is 11 or greater); and abstraction, unable to relate "ruler and a watch" (5) Anxiety: 10/06/18 - remeron off label, zyprexa off label 10/07/18 - off remeron onto seroquel may have some off label help for sleep and anx iety, supportive therapy on milieu as patient works through some roots of anxiety in divulging her medication diversion 10/09 - Quetiapine 25mg BID at 0900 and 1400 - with prn doses available q4h prn - Continue supportive therapy and engage patient in groups and active coping strategies as able 10/10 - Titrating daytime doses of quetiapine to 50mg BID, continue prn dosing if necessary - Will restart mirtazapine at 15mg this evening to target insomnia and persistent ruminations regarding health and feelings of guilt - If restart of mirtazapine is over-sedating, can consider reducing dose to 7.5mg qHS 10/12 -The patient's underlying anxiety may be exacerbated seizure. She describes a restless, "jumpy" feeling much of the time. She also notes that it is sometimes difficult for her to swallow and her muscles feel "stiff." On examination, today, there is cogwheel rigidity. 10/19 - Titrating quetiapine for mood stabilization/ongoing delusions - off-label benefit for anxiety - Now 50mg qAM, 50mg in afternoon and 250mg qHS - Quetiapine 25mg remains available as needed 10/22 - Continue mirtazapine 15mg qHS - Haloperidol titrated 10/29 - High-dose lorazepam trialed for likely catatonic presentation earlier in hospitalization, as condition is improving and it is not ideal that patient be discharged on benzodiazepines, we will begin taper - Lorazepam tapered to 1mg TID today; should not be discharged on lorazepam due to history of misuse/diversion of controlled substance 10/30 - Lorazepam reduced to 0.5mg TID today in preparation for discharge (6) Chronic pain: 10/06/18 - continue home dose of morphine (if Remeron not effective for mood consider SNRI desvenlafaxine with caution) 10/07/18 - patient admits to real pain but taking her morphine less than prescribed for many years and up until recently diverting the rest for money, she states she has recently changed this practice but is concerned about how to tell her d octors and the emerging financial strain now that she is no longer diverting her medications. This is a major source of her anxiety, possibly contributing to depression and weight loss as well. - request the weekday team help her to tell her PCM and psychiatrist, and then to work out possible relationship with pain clinic for [place] or related opiate agonist/antagonist so that her pain can be treated and not diverted if possible. 10/08 -Patient too distraught, psychotic, and disorganized today to address this. 10/09 - Continues to verbalize pain; states it is manageable 10/11 -Patient endorses guilt at times related to selling her prescribed morphine, and this has not yet been addressed with her PCP, who is out of the office until next week. The patient remains to distraught and psychotic to process this, so will revisit it next week. 10/16 -Patient has refused morphine the last 2 days. If she resumes it at some point, may want to use a lower dose to avoid oversedation. 10/17 -Lower morphine dose to 15 mg at bedtime, and continue 15 mg as needed dose, as patient is now receiving scheduled lorazepam for catatonia, and want to avoid IRRIGATION ENGINEER depression and oversedation. -Called Dr. Davis to review morphine misuse and his recs re: ongoing morphine/pain management. Spoke with his nurse, reviewed course of treatment thus far, and gave contact information for him to call if he has any further treatment recommendations. 10/18 - Dr. Davis returned phone call regarding the above concerns - he is agreeable with reduction of HS morphine to 15mg; he reports desire for a pain management referral for ongoing management - As patient has not consistently been utilizing prn Morphine IR, it was suggested the prn be held and replaced with acetaminophen 1,000mg up to 4x daily for pain - He suggested option of Icy Hot or Salonpas for more mild pain to avoid centrally acting medications if not necessary for severity of reported pain - we will see what is formulary - He was informed that patient has reported selling her morphine and is willing to rebuild therapeutic rapport with the patient after she is discharged 10/19 - Called pain management clinic in regard to referral - if consultation during admission would be desired - It is reported PCP would need to make referral to pain management clinic Inventory Assets Strengths: voluntary, good rapport with outpatient MD Needs: support, further medical record review and outpatient f/u Risk Factors Assessment Male: No : Yes Do You Have Access To A Gun?: No Health Problems: Yes Mental Health Diagnoses: Yes Substance Use Disorders: No Previous Attempt: No Family History of Suicide: No Previous Psychiatric Hospitalization: Yes Hopelessness: Yes Smoker: Yes Protective Factors Assessment Mu-Ism Beliefs: Yes : No Employed: No (Disability for back pain from [employer]) Good Rapport with Provider: Yes Interval History Identifying Information ALINA STONE is a 58-year-old F who currently lives in [facility], has her own home but presently staying with a friend, who has a history of Bipolar disorder and was admitted on 10/06/18 00:28 on a 201 voluntary status for psychotic depression and suicidality. Her symptoms worsened and progressed to catatonia, and she was placed on a 302 involuntary commitment on 10/16/2018 due to unresponsiveness and inability to participate in or consent to treatment. Her condition has since improved and she was agreeable to sign in voluntarily. Chief Complaint "I've got myself all in a tizzy." Review of Systems Notes Constitutional: denied Cardiovascular: denied Respiratory: denied Gastrointestinal: denied Neurological: denied Psychiatric: denies symptoms other than stated above Total of at least 10 systems reviewed, pertinent positives as above and in HPI. Sleep Information Total Hours of Sleep: 8.5 Sleep Comments: awake once on 129 rounds Meal Information Percent Meal Consumed - Breakfast: 100 Percent Meal Consumed - Lunch: 95 Percent Meal Consumed - Dinner: 100 Nutrition Comment: recorded on the pt. meal record Subjective Subjective Patient was seen & assessed and interval progress reviewed with nursing and social work. Staff reports the patient's condition continues to improve. She had a visit with her son last evening and was able to make appropriate bill payments. It was reported that son feels comfortable with the patient being d ischarged as soon as she feels ready. Pt was seen today to assess progress since admission. Pt states she has "got myself all in a tizzy" as she shares with this provider that she is concerned about how hot it has been outside and how skinny she still is. Pt reports specific concern that because of her reduced weight, she will not be able to handle the heat well if she is discharged tomorrow. We discussed recommendation that patient be driven home on discharge, to allow her to get stronger and settle in at home before she is driving independently. Pt feels that she can physically handle the task of driving, and a MoCA was completed today on which she scored a 28/30. Pt states she feels she could be ready for discharge as early as tomorrow, but is concerned about "getting my questions answered" by her caser before making this decision. Pt reports she has a list of questions related to housing, meals, and safety at home (biggest concern being not having bars in her shower). Pt feels that if she knows these concerns are being addressed, that she would feel ready to go home. Pt denies suicidality today, and continues to report decent appetite, nutritional intake, and hydration. Pt denies other needs or concerns today. Physical Exam Psychiatric Orientation: alert, oriented x 3 and cooperative Apperance: appropriately dressed and appropriately groomed; + did not appear stated age (older than stated age) Continues to be very skinny, though weight has remained stable Eye Contact: good eye contact Motor Behavior: steady gait and station and no abnormal motor movements Speech: normal rate/rhythm/volume of speech Affect: + anxious affect (but significantly improved) and + blunted affect Mood: + anxious mood ("I got myself all in a tizzy"); no depressed mood Thought Process: goal directed thought process (clearly able to discuss discharge plans and questions/concerns she has ) and clear/coherent thought process Thought Content: + preoccupation (with weight) and reality based without delusions Suicidal Thoughts: denies suicidal thoughts and denies suicidal intent Homicidal Thoughts: denies homicidal thoughts Hallucinations: no auditory hallucinations and no visual hallucinations Cognition: remote memory grossly intact, attention grossly intact and language grossly intact Estimated Intelligence: consistent with education level Insight: + fair insight Judgement: + fair judgement Vital Signs (Past 24 Hours) Last Vital Signs Temp 36.5 C 10/30/18 06:46 Pulse 75 10/30/18 06:46 Resp 20 10/30/18 06:46 BP 105/66 10/30/18 06:46 Pulse Ox 98 10/06/18 01:41 Results & Data Current Inpatient Medications Current Inpatient Medications: Current Inpatient Medications Acetaminophen (Tylenol) 1,000 mg PO Q6H PRN PRN Reason: Headache or Minor Fever Stop: 11/17/18 18:47 Last Admin: 10/28/18 15:09 Dose: 1,000 mg Documented by: Al Hydrox/Mg Hydrox/Simethicone (Maalox) 30 ml PO Q4H PRN PRN Reason: GI Upset Stop: 11/05/18 01:21 Last Admin: 10/25/18 22:08 Dose: 30 ml Documented by: Amantadine HCl (Symmetrel) 100 mg PO TID [facility] Stop: 11/22/18 13:59 Last Admin: 10/30/18 08:06 Dose: 100 mg Documented by: Atorvastatin Calcium (Lipitor) 20 mg PO QAM [facility] Stop: 11/05/18 08:59 Last Admin: 10/30/18 08:05 Dose: 20 mg Documented by: Bismuth Subsalicylate (Kaopectate) 15 ml PO PRN PRN PRN Reason: Loose Stool Stop: 11/05/18 01:21 Haloperidol (Haldol) 2.5 mg PO Q4H PRN PRN Reason: psychosis Stop: 11/14/18 15:22 Last Admin: 10/22/18 10:06 Dose: 2.5 mg Documented by: Haloperidol (Haldol) 5 mg PO HS [facility] Stop: 11/24/18 21:59 Last Admin: 10/29/18 20:25 Dose: 5 mg Documented by: Haloperidol (Haldol) 2.5 mg PO [id number] [facility] Stop: 11/24/18 13:59 Last Admin: 10/30/18 08:06 Dose: 2.5 mg Documented by: Hydroxyzine HCl (Vistaril) 25 mg PO Q4H PRN PRN Reason: Anxiety Stop: 11/05/18 01:21 Last Admin: 10/12/18 10:04 Dose: 25 mg Documented by: Lamotrigine (Lamictal) 50 mg PO QAM [facility] Stop: 11/21/18 08:59 Last Admin: 10/30/18 08:05 Dose: 50 mg Documented by: [place] Carbonate ([place] Carbonate) 300 mg PO BID [facility] Stop: 11/26/18 11:44 Last Admin: 10/30/18 08:05 Dose: 300 mg Documented by: Lorazepam (Ativan) 2 mg IM TID PRN PRN Reason: catatonia Stop: 11/16/18 07:54 Lorazepam (Ativan) 0.5 mg PO TID [facility] Stop: 11/29/18 13:59 Magnesium Hydroxide (Milk Of Magnesia) 30 ml PO DAILY PRN PRN Reason: Heartburn Stop: 11/05/18 01:21 Last Admin: 10/20/18 11:28 Dose: 30 ml Documented by: Mirtazapine (Remeron) 15 mg PO [facility] Stop: 11/09/18 21:59 Last Admin: 10/29/18 20:25 Dose: 15 mg Documented by: Morphine Sulfate (Ms Contin) 15 mg PO [facility] Stop: 10/31/18 21:59 Last Admin: 10/29/18 20:26 Dose: 15 mg Documented by: Multivitamins (Multivitamin Tab) [facility] Stop: 11/05/18 08:59 Last Admin: 10/30/18 08:05 Dose: 1 tab Documented by: Nicotine (Nicoderm Cq) 21 mg TD [facility] Stop: 11/05/18 08:59 Last Admin: 10/30/18 08:06 Dose: 21 mg Documented by: Nicotine Polacrilex (Nicorette 2mg) 1 piece MT UD PRN PRN Reason: Nicotine Withdrawal Stop: 11/05/18 01:21 Sodium Chloride ([place] Nasal) 1 - 2 sprays NA PRN PRN PRN Reason: Nasal Dryness/Congestion Stop: 11/05/18 01:21 Tolterodine Tartrate (Detrol) 2 mg PO BID [facility] Stop: 11/22/18 09:29 Last Admin: 10/30/18 08:04 Dose: 2 mg Documented by: Mental Health & Subst Abuse Tx Psychiatrist Name of Psychiatrist: [facility] - Dr. Borden Psychiatrist's Date of Appointment with Psychiatrist: 11/07/18 Time of Appointment with Psychiatrist: 1:35 p.m. Psychiatric Appointment Comment: [address] [place] Therapist Name of Therapist: [facility] - Manuel Weiner Therapist's Date of Therapist Appointment: 11/01/18 Time of Therapist Appointment: 2:00 p.m. Therapy Appointment Comment: [address] [place] Swatch Cutter Name of Swatch Cutter: [facility] [place] Phone Number for Swatch Cutter: [phone] Case Management Appointment Comment: Will come see you Post Discharge Appointments Primary Care Physician Name Of Family Doctor: [facility] - Dr. Yovany Davis Primary Care Date of Appointment with PCP: 11/05/18 Time of Appointment with PCP: 8:30 a.m. Provider Appointment Comment: [address], [address], [place] Other #1: Name of Aftercare Appointment: [facility] - Margi Santana Phone Number of Aftercare Appointment: [phone] Aftercare Appointment Comment: A resource from your insurance company. No obligation or cost to utilize. #2: Name of Aftercare Appointment: [facility] Phone Number of Aftercare Appointment: [phone] Time of Aftercare Appointment: Please call to get on the wait list for neuro testing Aftercare Appointment Comment: [place] will assist you #3: Name of Aftercare Appointment: [facility] Phone Number of Aftercare Appointment: Time of Aftercare Appointment: Can provide assistance in your home - [place] will assist you Aftercare Appointment Comment: [address] [place] [address] [address], [place] [address] Contact Information Discharge Discharge Address: [address], [place] [address] CPT Code CPT Code 93538 (1) Bipolar disorder Active/Remission status: currently active Current bipolar episode type: depressed Current episode severity: severe Psychotic features: with psychotic features Qualified Code(s): F31.5 - Bipolar disorder, current episode depressed, severe, with psychotic features
[2018-10-30] MEDS: LORazepam 0.5 MG TAB PO SCH ×2 (14:09→20:34)
[2018-10-30] MEDS: MoRPHine SULFATE CR 15 MG TABCR PO SCH (20:33)
[2018-10-30] MEDS: MIRTAZAPINE TAB 15 MG TAB PO SCH (20:34)
[2018-10-31] MEDS: HALOPERIDOL 5 MG TAB PO SCH (06:52)
[2018-10-31] MEDS: NICOTINE 21 MG/24 HR TDSY TD SCH (08:33)
[2018-10-31] MEDS: MULTIVITAMIN TAB PO SCH (08:33)
[2018-10-31] MEDS: lamoTRIgine 25 MG TAB PO SCH (08:33)
[2018-10-31] MEDS: AMANTADINE HCL 100 MG CAPSULE PO SCH (08:33)
[2018-10-31] MEDS: LITHIUM CARBONATE 300 MG TAB PO SCH (08:33)
[2018-10-31] MEDS: LORazepam 0.5 MG TAB PO SCH (08:33)
[2018-10-31] MEDS: ATORVASTATIN 20 MG TAB PO SCH (08:33)
[2018-10-31] MEDS: TOLTERODINE TARTRATE 2 MG TAB PO SCH (08:33)
[2018-10-31] MEDS ORDERED: DESTROY THIS MEDICATION ONE (10:28)
--- NOTE | 2018-10-31 10:29 | Discharge Summary ---
Date of Service October 31, 2018 History of Present Illness The patient is not an ideal historian. I believe the information she does provide is accurate but she is very limited on details. She give some history the rest is supplemented by reveiw of [facility] records, and [facility] records with patient's permission The patient is a 58yo DWF with history of mood disorder presumably bipolar by outpatient provider's notes, and h/o psychosis NOS as well. She had first admission in 2013 at the [facility] for psychosis NOS (on review of ER notes and psychiatric admission notes there may have been some mood symptoms present per son's description) this came on the heals of a delirium in 03/2013 during a medical admission. She was discharged on zyprexa. She had been managed for some time since 2013 on a combination of antipsychotic +/- anti depressant, and trazodone. THe longest duration she was on zyprex 10mg, trazodone 150mg and depakote 500mg, at times she was on cymbalta that seeming helps her mood but causes PANIAGUA's possibly better tolerated at 20mg po bid. She was off mood stablizers in Fall 2016 and was admitted to the [facility] Per [facility] notes for manic like behavior (poor sleep, hyperverbal, racing thoughts, anxious, restless) at which time she was returned to mood stablizer - zyprexa, and depakote, and contnued on trazodone. She has been losing weight in retrospect this seemed to start in Fall 2017 for unclear reasons, [facility] and Dr Borden are aware but no clear etiology has been identified. Per multiple ER visits through Fall 2017, the patient did have foot injury and has been on and off antibiotics a fair portion of the Fall 2017. She reports restlessness physically all day, emerges in the outpatient psychiatry notes in June 2018 coinciding with decrease in her morphine from [facility] and has continued failing trial propranolol, trial of being off depakote (also taken off for hair loss, and increased zyprexa). She prsented to the [facility] ER 09/23/18 for concerns of SI noted at that 09/23 ER contact as saying "I am going in circles in my life" with restlessness and pain and may have missed a few doses of medications. She was [place] [facility] and discharged on 7/22 on zyprexa 10mg, trazodone 150mg, cymbalta 30mg, and klonopin. At her 10/03 outpatient f/u visit with Dr Borden she felt her mind was racing, and restless he was concerned about sedation/respiratory supression with klonopin + morphine and recommended rapid taper of klonopin, stopped cymbalta due to concern of mood activation and asked her to resume depakote titration to 1000mg. She notes she had not slept since Tuesday 10/03 feeling restless and mind racing with "worried racing cloudy thoughts" denying creativity or increased goal directive activity. Instead she states she has felt down for several months wtih low energy, lower motivation, lower interest. Namely she was worried about financial strain and felt unsettled and had thoughts of dying but denies intention or plans states her son and grandon are reason for living. She notes she has low motivation, and restlessness, but poor energy, and poor sleep, feels hopeless and helpless. She feels guilty she has not been able to help her friend whom she has agreed to live with to help friend with friend's medical concerns. Her friend is aparently upset with patient for being gone many nights of the last 2 weeks. The patient denies grandiosity, denies increased goal directed activity. She denies indiscretions, AVH,IOR or paranoia. She denies feeling more social or talkative, denies feeling irritable. She continues to feel physically restless and has for many months. She states "I don't know why they say I am bipolar" denying other times of d ecreased need for sleep or other manic sx and upon review of records states she does not recall what was happening the times she was previously admitted. She does states she has poor memory and feels confused that it is hard for her to think at times. Denies getting lost, or forgtting how to use routine objects, can still prepare meals. She states she has been eating more lately "but I don't know why" but agrees that she has lost weight from 130lbs usual adult weight to 100lbs and is uncertain why. She denies fevers, no sweats, denies pain. Bedside CLOX I: 12/25, and CLOX II: Minicog- clock was intact, but failed to recall one of the 3 words able to do verbal trails, spell world forward and backward, named objects, repetition intact, world forward and backwards intact, and all orientation except date (said "25" instead of 27) Psych ROS: denies remembering being psychotic but there is evidence of paranoia and confusion in 03/2013 medical note and 04/2013 psychiatric notes but no clear obvious s/sx of elevated or mixed states at that time, 10/2016 ER note indicates elevate s/sx of mood at that time namely euphoria and poor insight brought by her son but no clear psychosis , she denies Suicide attempts Physical Exam Psychiatric Orientation: alert, oriented x 3 and cooperative Apperance: appropriately dressed and appropriately groomed; + did not appear stated age (appears older than stated age) Significantly underweight, though gained over course of admission Eye Contact: good eye contact Motor Behavior: steady gait and station and no abnormal motor movements (appearing much calmer today) Speech: normal rate/rhythm/volume of speech Affect: euthymic affect (smiling and joking at times) and + anxious affect (mildly, though much calmer than previous visists) Mood: + anxious mood ("A little nervous, but I think that comes with the territory") Thought Process: goal directed thought process and clear/coherent thought process Thought Content: reality based without delusions; no hopelessness and no loneliness Suicidal Thoughts: denies suicidal thoughts and denies suicidal intent Homicidal Thoughts: denies homicidal thoughts Hallucinations: no auditory hallucinations and no visual hallucinations Cognition: recent memory grossly intact, attention grossly intact and language grossly intact Estimated Intelligence: consistent with education level Insight: + fair insight Judgement: + fair judgement Vital Signs (Past 24 Hours) Last Vital Signs Temp 36.5 C 10/31/18 07:08 Pulse 69 10/31/18 07:08 Resp 18 10/31/18 07:08 BP 110/62 10/31/18 07:08 Pulse Ox 98 10/06/18 01:41 Principal Diagnosis - Bipolar disorder, current episode depressed, severe, with psychotic features - Anxiety, unspecified - Chronic Pain Psychiatric Data 58-year-old female with bipolar disorder who presented with depression, anxiety, and SI in the context of poor p.o. intake, underweight with BMI of 15.4, and perseveration on delusions that she is going to at any moment, consistently stating she will not make it through the day. Pt had just been discharged from [facility] 5 days prior to her current admission, where she was treated for similar symptoms, but was noncompliant with medications after discharge, not believing she needed them. Multiple medication changes have been made during this admission to address mood, anxiety, psychosis, and sleep. Initially Depakote was discontinued due to concern for cognitive impairment and hair loss. Olanzapine 10 mg at bedtime was initialy continued, and mirtazapine started to target mood, with expected benefit for anxiety and sleep as well. Due to concerns for akathisia, olanzapine was discontinued in favor of quetiap ine, and lamotrigine was started for bipolar depression. Pt's mood, psychosis, and anxiety worsened, she refused medications for several days, tried to leave the unit, was not eating or drinking and lost weight (BMI 15.1), was not able to participate in treatment or respond to staff, and ultimately had to be placed on a 302 involuntary commitment on 10/16/2018 given her inability to to give informed consent for treatment and the potential need to inject her with benzodiazepines to treat catatonia. She improved with the initiation of higher-dosage lorazepam, and was better able to participate in treatment - signing back in voluntarily prior to expiration of her involuntary commitment. Patient's condition had worsened for a period of time, requiring additional medication adjustments. Ultimately, quetiapine was discontinued in favor of haloperidol, to which she had a positive response to prns. Dosage of lorazepam was also adjusted to treat what appeared to be regression back into possible catatonic behaviors. Declo was started for mood stabilization and has been tolerated. Lorazepam was tapered prior to discharge to prevent diversion of the controlled medication, as she had done this with her morphine prior to admission. She had demonstrated consistent improvement in symptoms for several days prior to discharge and was less preoccupied with her anxious thoughts. Communication was had with patient's outpatient prescribers, particularly her PCP regarding her diversion of morphine. Overall dose of morphine was reduced when lorazepam was initiated for catatonia. A pain management referral was to be completed by patient's PCP after this communication, in order to encourage appropriate non-controlled medications could be used to effectively treat her pain. Pt also demonstrated frequent episodes of incontinence during her admission. Urology was curb-sided during her admission and recommended Detrol be initiated for her incontinence. Pt's PCP will follow-up with this management as well. Pt participated in group and recreational programming, and was supportive of peers. She was agreeable to a family meeting with her son prior to discharge. She had communication with her director of casework department to ensure housing needs would be addressed at discharge. [facility] was contacted and are to follow-up with the patient on discharge regarding possible assisted living arrangements. Pt will continue to see Dr. Borden for outpatient medication management, and is established with a therapist at [facility] as well. Based on review of patient's case and their current presentation, risk of harm to self or others is no longer perceived to be acute. Management of symptoms on an outpatient basis seems the most appropriate and least restrictive setting. Pt seems appropriate for discharge with recommendation for consistent follow-up with outpatient psychiatric prescriber, therapist and director of casework department. Pt verbalized understanding of discharge plan reviewed and is agreeable with plan to be discharged home today. She is being driven by a friend, and another friend will be assisting by driving her car home. Day of Discharge Assessment Patient's case was reviewed and discussed during treatment team. Staff report the patient is appearing improved this morning, and reportedly is desiring discharge. She did express anxiety to staff today about the ramifications of prior diversion of her morphine - and reportedly responded well to reassurance. Pt was seen today to assess readiness for discharge. Pt states she is "feeling really good today, ready to go." Pt does share with this provider that she is "nervous, but I think that comes with the territory." Pt shares with this provider her concerns surrounding her diversion of controlled substances and being found on admission with marijuana and a pipe. Pt was reassured that due to her honesty, the appropriate providers have been notified and we were able to establish a discharge plan to assist her in abstaining from this in the future. Pt was reminded of her pain management referral and that her PCP is aware of the issues and is willing to continue working with her. Pt appeared to be reassured by this conversation. Explained to patient some of our concerns surrounding discharge today; primarily a [id number]-desired taper of lorazepam and interest in ensuring anxiety is well-managed without its use. Pt reports understanding of concerns and is able to participate in a conversation with this provider discussing risks and benefits of timing of discharge. Pt expresses concern that she will not have transportation tomorrow, and continues to verbalize feeling comfortable with discharge today. Pt was able to review safety plan with this provider, and we discussed her expected follow-up - encouraging she reach out to these supports with any concerns. Pt continues to verbalize feeling ready for discharge today. She denies SI and is able to contract for safety, and remains future oriented. She does not appear to be at acute risk of harm to self any longer, and despite concern for increased anxiety at discharge, is agreeable with utilizing outpatient supports for continued treatment. Pt will be discharged home today, driven by friends. Discharge and aftercare plan was reviewed with the patient, who verbalized understanding and is agreeable with a discharge home today. ROS: Constitutional: reports milder anxiety today Cardiovascular: denied Respiratory: denied Gastrointestinal: denied Genitourinary: reports ongoing episodes of incontinence Neurological: denied Psychiatric: denies symptoms other than stated above Total of at least 10 systems reviewed, pertinent positives as above and in HPI. Transition of Care Transition Of Care Record: was reviewed with the patient Advance Directives Advance Directives Information Provided: Yes Advance Directives: No Mental Health Advance Directive: No Advance Directives on File: No Living Will: No Power of Workday Manager: No Advance Directives Reason:: Declines as Mental Health Visit. Risk Factors Assessment Presenting risk factors reviewed on discharge. Precipitating stressors mitigated by: admission for inpatient psychiatric observation and treatment, appropriate adjustments to medications to target symptoms, attendance of therapeutic treatment groups, development of healthy and effective coping strategies, involvement of outpatient supports, completion of a safety plan, confirmation of extra medications being secured, confirmation of guns and weapons being secured, treatment of medical conditions and education on diagnoses. Pt has demonstrated improvement in condition with regard to improvement in anxiety level, weight gain with improved nutritional intake and hydration, improved cognition. At this time, patient is requesting discharge and is no longer considered to be at acute risk of harm to herself or others. Pt will be discharged with recommendation for ongoing outpatient psychiatric treatment. Pt does remain at increased risk of harm to self when compared to the general population, and there are several risk factors which are not likely to be mitigated in an inpatient treatment setting. Her mental health concerns have been long-standing, and while she does not appear to require the intervention of an inpatient treatment setting, there will be ongoing risk factors for possible destabilization. She reports willingness to comply with her outpatient visits with her psychiatrist, therapist, and director of casework department which with increase her probability for ongoing stability on an outpatient basis. Male: No : Yes Do You Have Access To A Gun?: No Health Problems: Yes Mental Health Diagnoses: Yes Substance Use Disorders: No Previous Attempt: No Family History of Suicide: No Previous Psychiatric Hospitalization: Yes Hopelessness: Yes Smoker: Yes Protective Factors Assessment Alevism Beliefs: Yes : No Employed: No (Disability for back pain from [employer]) Good Rapport with Provider: Yes Tobacco Cessation at Discharge Tobacco Cessation Medication Prescribed at Discharge: Offered & Prescribed (pt reports having patches at home to utilize) Total Time Total Time Spent: Greater Than 30 Minutes Total Time Includes: Examination of the patient, Discharge Planning, Medication Reconciliation and Communication with other providers Discharge Data Lab Results 10/05/18 10/05/18 10/05/18 19:20 19:20 19:20 WBC RBC Hgb Hct MCV MCH MCHC RDW Std Deviation RDW Coeff of Haley Plt Count MPV Immature Gran % (Auto) Neut % (Auto) Lymph % (Auto) Colbert % (Auto) Eos % (Auto) Baso % (Auto) Immature Gran # (Auto) Neut # (Auto) Lymph # (Auto) Colbert # (Auto) Eos # (Auto) Baso # (Auto) Sodium Potassium Chloride Carbon Dioxide Anion Gap BUN Creatinine Est Cr Clr Drug Dosing Est GFR ( Amer) Est GFR (Non-Af Amer) BUN/Creatinine Ratio Glucose POC Glucose Fasting Glucose Calcium Total Bilirubin AST ALT Alkaline Phosphatase Total Protein Albumin Globulin Albumin/Globulin Ratio Triglycerides Cholesterol LDL Cholesterol, Calc VLDL Cholesterol, Calc HDL Cholesterol Cholesterol/HDL Ratio TSH Urine Color Yellow Urine Appearance Clear Urine pH 6.0 Ur Specific Apex 1.024 Urine Protein Negative Urine Glucose (UA) Negative Urine Ketones Trace H Urine Blood Negative Urine Nitrite Negative Urine Bilirubin Negative Urine Urobilinogen Negative Ur Leukocyte Esterase Negative Salicylates Urine Opiates Screen Pos H U Codeine Confrm GC/MS Ur Morphine (GC/MS) Ur Hydrocodone (GC/MS) Ur Norhydrocodone Ur Noroxycodone Urine Oxycodone (GC/MS) U Oxymorphone GC/MS Ur Methadone, Qual Neg Ur Hydromorphone (GC/MS) Acetaminophen Urine Barbiturates Neg Valproic Acid Ur Phencyclidine (PCP) Neg U Amphetamin/Meth Scrn Neg MDMA (Ecstasy) Screen Pos H U MDMA (Ecstasy), Quant REPORT U Benzodiazepines Scrn Neg Ur Cocaine Metabolite Neg U Marijuana (THC) Screen Neg Ethyl Alcohol mg/dL 10/05/18 10/05/18 10/05/18 19:20 19:58 19:58 WBC 7.82 RBC 4.53 Hgb 15.1 Hct 42.8 MCV 94.5 MCH 33.3 MCHC 35.3 RDW Std Deviation 43.7 RDW Coeff of Haley 12.6 Plt Count 254 MPV 9.3 Immature Gran % (Auto) 0.1 Neut % (Auto) 60.8 Lymph % (Auto) 30.7 Colbert % (Auto) 7.4 Eos % (Auto) 0.6 Baso % (Auto) 0.4 Immature Gran # (Auto) 0.01 Neut # (Auto) 4.75 Lymph # (Auto) 2.40 Colbert # (Auto) 0.58 Eos # (Auto) 0.05 Baso # (Auto) 0.03 Sodium 140 Potassium 3.7 Chloride 107 Carbon Dioxide 28 Anion Gap 5.0 BUN 22 H Creatinine 0.70 Est Cr Clr Drug Dosing 62.9 Est GFR ( Amer) 110.7 Est GFR (Non-Af Amer) 95.5 BUN/Creatinine Ratio 30.9 H Glucose 99 POC Glucose Fasting Glucose Calcium 9.3 Total Bilirubin 1.2 H AST 16 ALT 33 Alkaline Phosphatase 65 Total Protein 7.4 Albumin 4.0 Globulin 3.4 Albumin/Globulin Ratio 1.2 Triglycerides Cholesterol LDL Cholesterol, Calc VLDL Cholesterol, Calc HDL Cholesterol Cholesterol/HDL Ratio TSH 0.940 Urine Color Urine Appearance Urine pH Ur Specific Apex Urine Protein Urine Glucose (UA) Urine Ketones Urine Blood Urine Nitrite Urine Bilirubin Urine Urobilinogen Ur Leukocyte Esterase Salicylates Urine Opiates Screen U Codeine Confrm GC/MS NEGATIVE Ur Morphine (GC/MS) 94819 A Ur Hydrocodone (GC/MS) NEGATIVE Ur Norhydrocodone NEGATIVE Ur Noroxycodone NEGATIVE Urine Oxycodone (GC/MS) NEGATIVE U Oxymorphone GC/MS NEGATIVE Ur Methadone, Qual Ur Hydromorphone (GC/MS) 195 A Acetaminophen Urine Barbiturates Valproic Acid Ur Phencyclidine (PCP) U Amphetamin/Meth Scrn MDMA (Ecstasy) Screen U MDMA (Ecstasy), Quant U Benzodiazepines Scrn Ur Cocaine Metabolite U Marijuana (THC) Screen Ethyl Alcohol mg/dL 10/05/18 10/05/18 10/09/18 19:58 19:58 03:44 WBC RBC Hgb Hct MCV MCH MCHC RDW Std Deviation RDW Coeff of Haley Plt Count MPV Immature Gran % (Auto) Neut % (Auto) Lymph % (Auto) Colbert % (Auto) Eos % (Auto) Baso % (Auto) Immature Gran # (Auto) Neut # (Auto) Lymph # (Auto) Colbert # (Auto) Eos # (Auto) Baso # (Auto) Sodium Potassium Chloride Carbon Dioxide Anion Gap BUN Creatinine Est Cr Clr Drug Dosing Est GFR ( Amer) Est GFR (Non-Af Amer) BUN/Creatinine Ratio Glucose POC Glucose 97 Fasting Glucose Calcium Total Bilirubin AST ALT Alkaline Phosphatase Total Protein Albumin Globulin Albumin/Globulin Ratio Triglycerides Cholesterol LDL Cholesterol, Calc VLDL Cholesterol, Calc HDL Cholesterol Cholesterol/HDL Ratio TSH Urine Color Urine Appearance Urine pH Ur Specific Apex Urine Protein Urine Glucose (UA) Urine Ketones Urine Blood Urine Nitrite Urine Bilirubin Urine Urobilinogen Ur Leukocyte Esterase Salicylates < 1.7 L Urine Opiates Screen U Codeine Confrm GC/MS Ur Morphine (GC/MS) Ur Hydrocodone (GC/MS) Ur Norhydrocodone Ur Noroxycodone Urine Oxycodone (GC/MS) U Oxymorphone GC/MS Ur Methadone, Qual Ur Hydromorphone (GC/MS) Acetaminophen < 2 L Urine Barbiturates Valproic Acid 79 Ur Phencyclidine (PCP) U Amphetamin/Meth Scrn MDMA (Ecstasy) Screen U MDMA (Ecstasy), Quant U Benzodiazepines Scrn Ur Cocaine Metabolite U Marijuana (THC) Screen Ethyl Alcohol mg/dL < 3.0 10/10/18 10/15/18 10/15/18 07:50 15:31 15:31 WBC 11.78 H RBC 5.03 Hgb 17.2 H Hct 47.4 H MCV 94.2 MCH 34.2 H MCHC 36.3 H RDW Std Deviation 42.4 RDW Coeff of Haley 12.4 Plt Count 347 MPV 9.6 Immature Gran % (Auto) 0.3 Neut % (Auto) 73.2 Lymph % (Auto) 15.3 Colbert % (Auto) 10.8 Eos % (Auto) 0.1 Baso % (Auto) 0.3 Immature Gran # (Auto) 0.03 H Neut # (Auto) 8.64 H Lymph # (Auto) 1.80 Colbert # (Auto) 1.27 H Eos # (Auto) 0.01 Baso # (Auto) 0.03 Sodium 138 Potassium 4.0 Chloride 104 Carbon Dioxide 26 Anion Gap 8.0 BUN 17 Creatinine 0.84 Est Cr Clr Drug Dosing 52.7 Est GFR ( Amer) 88.8 Est GFR (Non-Af Amer) 76.6 BUN/Creatinine Ratio 20.8 H Glucose 99 POC Glucose Fasting Glucose 101 H Calcium 9.5 Total Bilirubin 1.1 H AST 20 ALT 29 Alkaline Phosphatase 66 Total Protein 7.7 Albumin 4.2 Globulin 3.5 Albumin/Globulin Ratio 1.2 Triglycerides 99 Cholesterol 173 LDL Cholesterol, Calc 82 VLDL Cholesterol, Calc 20 HDL Cholesterol 71 Cholesterol/HDL Ratio 2 TSH Urine Color Urine Appearance Urine pH Ur Specific Apex Urine Protein Urine Glucose (UA) Urine Ketones Urine Blood Urine Nitrite Urine Bilirubin Urine Urobilinogen Ur Leukocyte Esterase Salicylates Urine Opiates Screen U Codeine Confrm GC/MS Ur Morphine (GC/MS) Ur Hydrocodone (GC/MS) Ur Norhydrocodone Ur Noroxycodone Urine Oxycodone (GC/MS) U Oxymorphone GC/MS Ur Methadone, Qual Ur Hydromorphone (GC/MS) Acetaminophen Urine Barbiturates Valproic Acid Ur Phencyclidine (PCP) U Amphetamin/Meth Scrn MDMA (Ecstasy) Screen U MDMA (Ecstasy), Quant U Benzodiazepines Scrn Ur Cocaine Metabolite U Marijuana (THC) Screen Ethyl Alcohol mg/dL 10/15/18 10/22/18 20:05 07:27 WBC RBC Hgb Hct MCV MCH MCHC RDW Std Deviation RDW Coeff of Haley Plt Count MPV Immature Gran % (Auto) Neut % (Auto) Lymph % (Auto) Colbert % (Auto) Eos % (Auto) Baso % (Auto) Immature Gran # (Auto) Neut # (Auto) Lymph # (Auto) Colbert # (Auto) Eos # (Auto) Baso # (Auto) Sodium Potassium Chloride Carbon Dioxide Anion Gap BUN Creatinine Est Cr Clr Drug Dosing Est GFR ( Amer) Est GFR (Non-Af Amer) BUN/Creatinine Ratio Glucose POC Glucose 108 H Fasting Glucose Calcium Total Bilirubin AST ALT Alkaline Phosphatase Total Protein Albumin Globulin Albumin/Globulin Ratio Triglycerides Cholesterol LDL Cholesterol, Calc VLDL Cholesterol, Calc HDL Cholesterol Cholesterol/HDL Ratio TSH Urine Color Yellow Urine Appearance Clear Urine pH 7.0 Ur Specific Apex 1.024 Urine Protein Negative Urine Glucose (UA) Negative Urine Ketones 1+ H Urine Blood Negative Urine Nitrite Negative Urine Bilirubin Negative Urine Urobilinogen Negative Ur Leukocyte Esterase Negative Salicylates Urine Opiates Screen U Codeine Confrm GC/MS Ur Morphine (GC/MS) Ur Hydrocodone (GC/MS) Ur Norhydrocodone Ur Noroxycodone Urine Oxycodone (GC/MS) U Oxymorphone GC/MS Ur Methadone, Qual Ur Hydromorphone (GC/MS) Acetaminophen Urine Barbiturates Valproic Acid Ur Phencyclidine (PCP) U Amphetamin/Meth Scrn MDMA (Ecstasy) Screen U MDMA (Ecstasy), Quant U Benzodiazepines Scrn Ur Cocaine Metabolite U Marijuana (THC) Screen Ethyl Alcohol mg/dL Hospital Course (1) Suicidal ideation: 10/06 and 10/07 - inpatient is least restrictive and most appropriate setting for care given multiple risk factors, passive SI, hopelessness, pain, poor sleep, restlessness. 10/08 -patient endorsing suicidal thoughts with a plan to starve herself, and reports that she has been restricting intake with unknown amount of weight loss. She is underweight with BMI 15.4. Continue to monitor p.o. intake and encourage good nutrition. 10/09 - Pt denies active SI, but continues to believe that she is "reaching the end" and that is imminent, which further contributes to her anxiety 10/11 -today patient is reporting to harm herself, and states that she would "probably" tried to end her life if she were not in the hospital. 10/12 - The patient reports today that she does not feel that it will be necessary for her to commit suicide because she is to be put to in the morning by lethal injection. 10/16 -patient is eating very little, not drinking, stating alternatively that she will at any moment or that she is already . 10/17- Mood, SI, and psychosis improving. 10/24 - Reporting "I'm suicidal" today; however, states this is more so frustration and inability to go on if her condition does not improve 10/25 - Continues to states she is "suicidal" - though denies desire to end her life, thoughts to harm herself, plan, or intent 10/26 - Denies suicidal ideation today 10/28 -Continues to deny suicidal ideation 10/29 - Patient continues to use the word "suicidal" to describe the feeling that she "may ", but consistently denies true suicidal ideation, plan, or intent to harm herself (2) Bipolar disorder: 10/06 - She had been stable for many years on Zyprexa +/- Depakote and trazodone although occasional low moods often seasonally mediated and anxiety at times failing Cymbalta due to PANIAGUA's. Given this history I would like to keep her on a mood stabilizer but am concerned about hair loss and tremor and possible compounded cognitive impairment with Depakote so I held this, so will keep Zyprexa 10mg for now.stop Depakote, continue Zyprexa 10mg, start Remeron 15mg/hs 10/07 - stopped zyprexa to r/o akathisia (5mg tonight then off), returned to Seroquel (due to sedation stopped Remeron as well) 100mg tonight then 200mg thereafter with hope would stabilize, help depression and off label help sleep and anxiety, initial target dose if 200mg watching to assure not too fatigued as per last trial t 300mg when she had enuresis and daytime fatigue. She is now at lowered dose of morphine so fatigue and oversedation less likely Strongly consider Lamictal for mood stabilization, due to h/o break through depression on Seroquel in the noel, titration briefly discussed today but patient was too overwhelmed to consent. 10/08 -Continue quetiapine 200 mg at bedtime, and at 50 mg as needed dose for sleep. Reviewed the risks, benefits, and side effects of lamotrigine, which was also reviewed with her yesterday, including the risk of serious rash/SJS. She agreed to a trial, and will start 25 mg daily. -Order fasting labs for monitoring on an atypical antipsychotic. 10/09 - Planning to initiate quetiapine 25mg BID at 0900 and 1400; will order 25mg q4h prn for anxiety/disorganized thoughts. Will continue quetiapine 200mg at bedtime with 50mg additional dose as needed for sleep. - Will attempt to get fasting labs tomorrow morning, as patient had eaten overnight and the blood test could not be completed today - Continue lamotrigine 25mg daily 10/10 - Will titrate daytime doses of quetiapine to 50mg BID with continued 200mg/50mg bedtime dosing - Continue lamotrigine 25mg daily - Will restart mirtazapine at 15mg as patient continues to experience insomnia, receiving only 1.75 hours of sleep last evening 10/11 -Continue current medications; quetiapine just increased yesterday with scheduled dosing throughout the day as well as as needed dose; continue to titrate to effective dose. Sleep improved with resumption of mirtazapine. 10/13 hopefully can titrate Seroquel tomorrow. 10/14--doesn't appear that benefiting much from Seroquel, hesitant to titrate given sedation, tremor and gait. Appetite remains poor. Refused meds this am. Was losing weight on Zyprexa. Trial of a typical agent (haldol) may be appropriate, will defer to primary team. will note that if patient continues to refuse PO medications, she should receive meds over objection as or serious injury to self would come from psychotic disorder resulting in poor PO and she will not improve without such medication. Refusal of meds and level of psychosis would be indication for involuntary commitment. 10/15--patient refusing medications and not answering questions today. She did converse with the clinical social work therapist and was able to eat, but was uncooperative with my attempt to interview her. She has not received quetiapine in 2 days. I will order haloperidol as needed, and consider a 302 involuntary commitment and medications over objection if she does not improve in the next 24 hours. -Patient appears more altered today. She has not had labs since 10/05/2018, so will order a CMP, CBC, and UA to rule out electrolyte abnormalities, UTI, and look for signs of infection or other medical issues that could contribute to deteriorating mental status/delirium. -Consider EEG. 10/16--patient refusing medications for the third day in a row, not eating very much, refusing to drink, and attempted to leave the unit last night. She is refusing all groups, and will not engage or talk with staff. She continues to state that she believes she is , or will at any moment. She has been in her bed most of the time, and does not respond to questions or commands. CBC, CMP, and UA were checked yesterday and were notable for elevated WBC 11.78, hemoglobin 17.2, hematocrit 47.2, elevated MCH and MCV HC. Total bilirubin was elevated at 1.1, and remainder of CMP was normal. UA showed 1+ ketones. Vital signs were normal this morning. Lab results do not indicate any active medical conditions contributing to her altered mental status and decreased responsiveness. Ketonuria does indicate starvation, and if she is already underweight with a BMI of 15.1, she is at risk if she continues to refuse to eat. Current symptoms are consistent with catatonia and I would like to do a lorazepam challenge; 1 mg p.o. stat was ordered, but the patient is refusing to take oral medications. We will need to use IM Lorazepam. As she is severely depressed, psychotic, catatonic, unable to appreciate the risks and benefits of treatment, and is refusing potentially life-saving treatment including medications, fluids, and food, we will proceed with a 302 involuntary commitment. 10/17--catatonia significantly improved, we will schedule Lorazepam 2 mg 3 times daily and taper as tolerated. --Continue lamotrigine, quetiapine, mirtazapine, and trihexyphenidyl as ordered, which she is now taking willingly. --Encourage group attendance and participation. Work on addressing stressors, including financial concerns, housing, and supports. Scheduled family meeting with son. --Work on discharge planning. 10/18 - Pt condition mildly worse today; however, still improved overall since admission - Due to concerns for sedation, lorazepam was reduced to 1mg TID - Continue lamotrigine, quetiapine, mirtazapine, and trihexyphenidyl as above - Son stopped in for family meeting later this morning 10/19 - Titrate HS dose of quetiapine to 250mg; continue quetiapine 50mg BID - Continue lorazepam 1mg TID - Continue lamotrigine, mirtazapine, and trihexyphenidyl 10/20 -Continue current medications. Frequent reassurance required, encourage patient to participate in groups and activities. 10/21 -Increase lamotrigine to 50 mg daily tomorrow, and in 2 more weeks can increase to 100 mg daily. -Limit as needed doses of Artane due to dry mouth and excessive thirst. 10/22 - Seroquel tapered to 100mg qHS and plans to utilize haloperidol as prominent antipsychotic medication based on response to prns - Haloperidol ordered 2.5mg TID to initiate, with continued availability to 2.5mg q4h prn - Discontinued Artane due to concern for ongoing excessive thirst contributing to urinary frequency/urgency - Initiated amantadine, 50mg initial dose with 100mg BID scheduled thereafter for EPS - May need to consider re-trail of lorazepam challenge if patient's condition does not improve with these adjustments 10/23 - Decrease quetiapine to 50mg HS and continue haloperidol 2.5mg tid and prn. Continue lorazepam mg tid. 10/24 - Discontinue quetiapine - Will order second dose of 2.5mg haloperidol to be available at bedtime if needed. - Lorazepam increased to 1.5mg TID yesterday 10/25 - 10/26 - Haloperidol titrated to 2.5mg/2.5mg/5mg today - 2.5mg doses remain available as needed throughout the day - Continue remainder of medication regimen as above - Sleep and appetite continue to be stable 10/27 -She seems to be demonstrating improved thought cohesion and less negative symptoms with titration of Haldol however complaining of mild EPS symptoms and reviewed that olanzapine was initially discontinued secondary to concern for EPS. Ultimately it might make sense to convert her back over to the olanzapine which has been a long-standing therapeutic intervention as it does have lower risk for EPS as compared to the Haldol but will defer this change for now secondary to recent interval improvement -reviewed compelling reasons to discontinue the Depakote at admission including concern for some cognitive slowing. Her Depakote level was within normal range. As it will take some time to titrate Lamictal, we discussed consideration for lithium trial, particularly given the neurotropic effects of lithium and the possibility that more adequate mood stabilization with lithium, possibly combined with continued Lamictal, will reduce need for antipsychotic longer term. She was agreeable to the lithium trial after review of risks and benefits in detail which included potential long-term impact on thyroid functioning and renal functioning. She was made aware of the need for regular l ab work and agreeable. Start lithium carbonate 300 mg p.o. twice daily today. Lab order for lithium trough level in 5 days. 10/28 -Tolerating lithium start so far. Will defer additional changes to dose presently. 10/29 - Will reduce lorazepam to 1mg TID to begin taper, as patient will not be discharged on benzodiazepines (history of misuse/diversion) - Otherwise, continue current medication regimen - Son to visit today; hopefully provider information on current proximity to baseline 10/30 - Lorazepam reduced to 0.5mg TID in preparation for discharge; patient's condition has continued to be stable - Continue remainder of current medication regimen - Son feels patient is functioning well; comfortable with discharge when patient feels ready (3) Akathisia: 10/06/18 - possibly neuroleptic induced, worsened by anxiety. Working theory is lowered dose of morphine uncovered akathisia caused by Zyprexa need to gather more history to consider need for AAP vs. mood stabilizer or both and prior response to other meds, would like to avoid anticholinergics given cognitive concerns 10/07/18 - she is having insomnia, needs mood stabilization and antidepressant, she did have some fatigue on 300mg but now on lowered dose of morphine. There were possibly two instances of enuresis but 200mg consistently was never tested over longer term for treatment, and given akathisia do not wish to use Clozaril and other AAP ongoing likelihood of akathisia so will retrial Seroquel titration to 200mg watching energy, and monitoring for nighttime urination. Patient affirms understanding history and current situation reviewed and she agrees with this plan as it supports multiple symptoms and leads to reduction of polypharmacy. 10/09 - Unclear if tremor and restlessness is true akathisia or related to anxiety - as it is not constant and appears to be worse when anxiety is highest - Continue to observe, but will refrain from treating with additional medication at this time - No evidence of cogwheeling or dystonia on physical exam 10/13 --EPS resolved with Artane 10/12 -Cogwheeling is present today on physical examination. The patient was given diphenhydramine 25 mg IM and is being observed. Her symptoms do appear to be consistent with akathisia, although they do appear to wax and wane. 10/16 -although cogwheeling and tremulousness continue, we are avoiding deliriogenic medications given her worsening mental status. 10/17--resume trihexyphenidyl 2 mg twice daily. 10/22 - Discontinued trihexyphenidyl - Initiated amantadine 100mg BID, beginning with 50mg dose this afternoon 10/23 - Continue amantadine and increase to 100mg tid 10/24 - Continue as above 10/28 -Patient again reporting reduced subjective restlessness. Might consider attempting to cut the amantadine and half or holding the Detrol as a trial if able. 10/30 - Reporting improvement in restlessness (4) Cognitive disorder: 10/06/18 - I am concerned about her cognition as her overall MMSE-like assessment was near normal outside of a few points, but her CLOX was notably poor indicating poor executive function concerns. Again I will need to review PCM's records to see what labs and studies have been done to r/u reversible causes of cognitive decline. TSH WNL, LFTs WNL. Furthermore morphine and zyprexa and residual VPA can contribute to poor cognition. Will add MVI for now to support. 10/07 - review of remainder of labs from Dr Davis cited in 10/07 note B12, cbc, CMP vit D all WNL, could be h/o alcohol, polypharmacy with narcotic and AAP, and VPA although the latter has been stopped. There are no focal findings on exam. CLOX I indicates frontal lobe/executive issues but no other obvious release signs or personality changes or overt disinhibition. Recommend referral to neuropsych testing at [facility] after discharge for further characterization of her deficits as they may be pseudo dementia of depression or medications or both. 10/12 -Cognitive testing currently is not possible, due to the degree of the patient's thought disorganization and psychotic thinking. 10/23 - Refer to [facility] for cognitive and neuropsych testing 10/28 -Discussed minimizing anticholinergic burden as above but will defer additional changes today as trend has been positive in last few days 10/30 - MoCA performed today; patient performed with mild deficit in verbal fluency (stated 10 words; cut off is 11 or greater); and abstraction, unable to relate "ruler and a watch" (5) Anxiety: 10/06/18 - remeron off label, zyprexa off label 10/07/18 - off remeron onto seroquel may have some off label help for sleep and anxiety, supportive therapy on milieu as patient works through some roots of anxiety in divulging her medication diversion 10/09 - Quetiapine 25mg BID at 0900 and 1400 - with prn doses available q4h prn - Continue supportive therapy and engage patient in groups and active coping strategies as able 10/10 - Titrating daytime doses of quetiapine to 50mg BID, continue prn dosing if necessary - Will restart mirtazapine at 15mg this evening to target insomnia and persistent ruminations regarding health and feelings of guilt - If restart of mirtazapine is over-sedating, can consider reducing dose to 7.5mg qHS 10/12 -The patient's underlying anxiety may be exacerbated seizure. She describes a restless, "jumpy" feeling much of the time. She also notes that it is sometimes difficult for her to swallow and her muscles feel "stiff." On examination, today, there is cogwheel rigidity. 10/19 - Titrating quetiapine for mood stabilization/ongoing delusions - off-label benefit for anxiety - Now 50mg qAM, 50mg in afternoon and 250mg qHS - Quetiapine 25mg remains available as needed 10/22 - Continue mirtazapine 15mg qHS - Haloperidol titrated 10/29 - High-dose lorazepam trialed for likely catatonic presentation earlier in hospitalization, as condition is improving and it is not ideal that patient be discharged on benzodiazepines, we will begin taper - Lorazepam tapered to 1mg TID today; should not be discharged on lorazepam due to history of misuse/diversion of controlled substance 10/30 - Lorazepam reduced to 0.5mg TID today in preparation for discharge (6) Chronic pain: 10/06/18 - continue home dose of morphine (if Remeron not effective for mood consider SNRI desvenlafaxine with caution) 10/07/18 - patient admits to real pain but taking her morphine less than prescribed for many years and up until recently diverting the rest for money, she states she has recently changed this practice but is concerned about how to tell her doctors and the emerging financial strain now that she is no longer diverting her medications. This is a major source of her anxiety, possibly contributing to depression and weight loss as well. - request the weekday team help her to tell her PCM and psychiatrist, and then to work out possible relationship with pain clinic for [place] or related opiate agonist/antagonist so that her pain can be treated and not diverted if p ossible. 10/08 -Patient too distraught, psychotic, and disorganized today to address this. 10/09 - Continues to verbalize pain; states it is manageable 10/11 -Patient endorses guilt at times related to selling her prescribed morphine, and this has not yet been addressed with her PCP, who is out of the office until next week. The patient remains to distraught and psychotic to process this, so will revisit it next week. 10/16 -Patient has refused morphine the last 2 days. If she resumes it at some point, may want to use a lower dose to avoid oversedation. 10/17 -Lower morphine dose to 15 mg at bedtime, and continue 15 mg as needed dose, as patient is now receiving scheduled lorazepam for catatonia, and want to avoid RAKER BUFFING WHEEL depression and oversedation. -Called Dr. Davis to review morphine misuse and his recs re: ongoing morphine/pain management. Spoke with his nurse, reviewed course of treatment thus far, and gave contact information for him to call if he has any further treatment recommendations. 10/18 - Dr. Davis returned phone call regarding the above concerns - he is agreeable with reduction of HS morphine to 15mg; he reports desire for a pain management referral for ongoing management - As patient has not consistently been utilizing prn Morphine IR, it was suggested the prn be held and replaced with acetaminophen 1,000mg up to 4x daily for pain - He suggested option of Icy Hot or Salonpas for more mild pain to avoid centrally acting medications if not necessary for severity of reported pain - we will see what is formulary - He was informed that patient has reported selling her morphine and is willing to rebuild therapeutic rapport with the patient after she is discharged 10/19 - Called pain management clinic in regard to referral - if consultation during admission would be desired - It is reported PCP would need to make referral to pain management clinic Mental Health [facility] Subst Abuse [facility] Psychiatrist Name of Psychiatrist: [facility] - Dr. Borden Psychiatrist's Date of Appointment with Psychiatrist: 11/07/18 Time of Appointment with Psychiatrist: 1:35 p.m. Psychiatric Appointment Comment: [address] [place] Psych[place] Release of Information: Obtained, Reviewed and Signed Therapist [facility] - Manuel Weiner Therapist's Date of Therapist Appointment: 11/01/18 Time of Therapist Appointment: 2:00 p.m. Therapy Appointment Comment: [address] [place] Therapist Release of Information: Obtained, Reviewed and Signed Post Acute Care Nurse Practitioner Name of Post Acute Care Nurse Practitioner: [facility] [place] Phone Number for Post Acute Care Nurse Practitioner: [phone] Date of Appointment with Post Acute Care Nurse Practitioner: 11/02/18 Time of Appointment with Post Acute Care Nurse Practitioner: 12:00pm Case Management Appointment Comment: Will come see you Post Acute Care Nurse Practitioner Release of Information: Obtained, Reviewed and Signed Post Discharge Appointments Primary Care Physician Name Of Family Doctor: [facility] - Dr. Yovany Davis Primary Care Date of Appointment with PCP: 11/05/18 Time of Appointment with PCP: 8:30 a.m. Provider Appointment Comment: [address], [address], [place] Primary Care Release of Information: Obtained, Reviewed and Signed Smoking Cessation Counseling Tobacco Cessation Medication Prescribed at Discharge: Offered & Prescribed (pt reports having patches at home to utilize) Other #1: Name of Aftercare Appointment: [facility] Post Acute Care Nurse Practitioner - Margi Santana Phone Number of Aftercare Appointment: [phone] Aftercare Appointment Comment: A resource from your insurance company. No obligation or cost to utilize. #2: Name of Aftercare Appointment: [facility] Phone Number of Aftercare Appointment: [phone] Time of Aftercare Appointment: Please call to get on the wait list for neuro testing Aftercare Appointment Comment: [place] will assist you #3: Name of Aftercare Appointment: [facility] Phone Number of Aftercare Appointment: Time of Aftercare Appointment: Can provide assistance in your home - [place] will assist you Aftercare Appointment Comment: [address] [place] [address] [address], [place] [address] Contact Information Discharge Discharge [address]: [address] [place] [id number] Discharge Plan Discharge Items Patient Disposition: Home - Self-Care Reason For Visit: MOOD D/O NOS Discharge Diagnosis: Bipolar disorder; Anxiety; Chronic Pain Condition: Fair Discharge Goals: Decrease discomfort, Improve disease control, Improve function, Increase independence, Improve nutritional status, Learn about illness and Therapeutic intervention Activity: Resume your previous activity Non-emergency contact: Primary Care Provider, Specialist, Psychiatrist, Therapist and Dump Grader Call non-emergency contact if: you have any medication questions and your symptoms worsen Follow-up/Referrals: Yovany Davis MD [Primary Care Provider] - Diet: Regular Addtl Provider Instructions: SPECIAL CARE INSTRUCTIONS: 1. Follow through with your scheduled aftercare appointments. If unable to keep an appointment, please call to reschedule. 2. Take your medication only as prescribed. Medication should not be changed or stopped without the approval of your doctor. In the event of worsening symptoms or concerns about side effects, contact your doctor immediately. 3. Utilize new healthy coping skills, anger management skills, and stress management skills learned during your hospitalization. Journal feelings and process them with a support person. Identify stressors or situations that may result in relapse, deterioration or inappropriate behaviors and develop a plan to deal with those issues. 4. If your coping skills are ineffective and you are in crisis, contact your outpatient providers for direction. If unable to reach your providers, please call the CAN HELP LINE AT or go to the closest Emergency Room. 5. Avoid alcohol and un-prescribed drugs. 6. You have been provided with the Mental Health Advance Directives Pamphlet for your review. 7. You received an outpatient lab order with your discharge packet. This is for blood work to obtain a Declo level. Please complete this lab work the morning of 11/01/18. No fasting is required, but do not take your morning dose of Declo for that day until after testing is done. Results will be sent to your outpatient psychiatric prescriber to review. Please make sure this is completed prior to your next appointment with Dr. Borden, scheduled for 11/07/18. AFTERCARE APPOINTMENTS: * Please call your insurance company prior to your scheduled appointment to confirm your aftercare providers are covered. Take your insurance information to your appointments. WHO TO CALL AND WHEN: Medical Emergencies: For questions or emergencies related to your hospital stay, please contact the Inpatient Behavioral Health Unit at [phone]. A psychiatric aide is on-call 03/10 for the Behavioral Health Unit for emergencies At any time you feel your situation is an emergency, you may also call 911 immediately. Your Doctors Instructions noted above were prepared by provider Jenifer Cassidy PA-C. Prescriptions: New nicotine (polacrilex) [Nicorelief] 2 mg Gum 2 mg MT UD PRN (Reason: nicotine cravings) 30 Days Qty: 1 RF: 0 nicotine [Nicoderm CQ] 21 mg/24 hr Patch 24 Hour 21 mg transdermal QAM 30 Days Qty: 1 RF: 0 acetaminophen [Tylenol Extra Strength] 500 mg Tablet 1,000 mg PO Q6H PRN (Reason: pain) 30 Days Qty: 60 RF: 0 haloperidol 5 mg Tablet 5 mg PO HS 30 Days Qty: 30 RF: 0 haloperidol 5 mg Tablet 2.5 mg PO [id number] 30 Days Qty: 15 RF: 0 amantadine HCl 100 mg Capsule 100 mg PO TID 30 Days Qty: 90 RF: 0 hydroxyzine HCl 25 mg Tablet 25 mg PO Q4H PRN (Reason: anxiety) 30 Days Qty: 30 RF: 0 mirtazapine 15 mg Tablet 15 mg PO HS 30 Days Qty: 30 RF: 0 lithium carbonate 300 mg Tablet 300 mg PO BID 30 Days Qty: 60 RF: 0 tolterodine [Detrol] 2 mg Tablet 2 mg PO BID 30 Days Qty: 60 RF: 0 lamotrigine 100 mg tablet 50 mg PO QAM 30 Days Qty: 28 RF: 0 morphine 15 mg Tablet Extended Release 15 mg PO HS 30 Days Qty: 1 RF: 0 Continued multivitamin Tablet 1 tab PO QAM RF: 0 atorvastatin 20 mg tablet 20 mg PO QAM RF: 0 ranitidine HCl 300 mg tablet 300 mg PO BID RF: 0 Discontinued divalproex 500 mg Tablet Extended Release 24 Hr 1,000 mg PO QAM RF: 0 trazodone 50 mg tablet 150 mg PO HS RF: 0 olanzapine 10 mg tablet 10 mg PO ONCE HS RF: 0 morphine 15 mg tablet 15 mg PO Q4H MDD 90 MG PRN (Reason: Pain) RF: 0 morphine 30 mg tablet extended release 30 mg PO ONCE HS RF: 0 Stand-Alone Forms: Counts Include [facility] Discharge Orders: Discharge Order (Routine); Ordered 10/31/18 Ordered By: Jenifer Cassidy Admission Data Admit Date/Time: 10/06/18 00:28 Attending Provider: Chante Bermudez Admit Provider: Melva Andino Primary Care Provider: Yovany Davis Service: Psychiatry Other Interventions: Discharge Summary Assessment (RN) Last Done: 10/31/18 10:42 PSY Interdisciplinary Discharge Planning Last Done: 10/31/18 10:42 Pending Studies at Discharge: Yes Studies:: Declo Level - to be obtained morning of 11/01/18. Outpatient lab order provided in discharge paperwork. Copy to be sent to Dr. Borden at [facility]. [place] Date/Time DO NOT enter until pt leaves facility: 10/31/18 11:50
[2018-10-31] MEDS: ACETAMINOPHEN 500 MG TAB PO PRN (10:31)
== END 2018-10-31 11:50 | disposition home or self-care (01) | DRG 885 ==
LOC: ED 18:54 → 3S 10-06 00:28 → SUATTDRO 10-06 00:28 → 3S 10-06 00:55

== ENCOUNTER 2018-11-03 13:52 | Inpatient (IN) ==
[2018-11-03 14:46] LABS: Basophils # (auto) 0.04 K/uL (0-0.2); Basophils % (auto) 0.4 %; Eosinophils # (auto) 0.04 K/uL (0-0.5); Eosinophils % (auto) 0.4 %; Hematocrit (blood only) 42.8 % (37-47); Hemoglobin 14.9 g/dL (12.0-16.0); Immature Granulocytes # (auto) 0.01 K/uL (0.00-0.02); Immature Granulocytes % (auto) 0.1 %; Lymphocytes # (auto) 1.88 K/uL (1.2-3.4); Lymphocytes % (auto) 20.5 %; Mean Corpuscular Hgb Conc 34.8 g/dL (32-36); Mean Corpuscular Volume 94.9 fL (80-100); Mean Platelet Volume 9.7 fL (7.4-10.4); Monocytes # (auto) 0.58 K/uL (0.11-0.59); Monocytes % (auto) 6.3 %; Neutrophils % (auto) 72.3 %; Platelet Count 231 K/uL (130-400); RDW Coefficient of Variation 12.8 % (11.5-14.5); RDW Standard Deviation 44.1 fL (36.4-46.3); Red Blood Count 4.51 M/uL (4.2-5.4); White Blood Count 9.15 K/uL (4.8-10.8)
[2018-11-03 15:05] LABS: Alanine Aminotransferase 48 U/L (12-78); Aspartate Aminotransferase 20 U/L (15-37); Blood Urea Nitrogen 17 mg/dl (7-18); Calcium 9.3 mg/dl (8.5-10.1); Carbon Dioxide 28 mmol/L (21-32); Chloride 109 mmol/L (98-107); Creatinine Clr Calc Pharmacy 60.5 ml/min; Est GFR (African American) 100.2; Est GFR (Non-African American) 86.5; Glucose 103 mg/dl (70-99); Potassium 3.9 mmol/L (3.5-5.1); Sodium 142 mmol/L (136-145)
[2018-11-03 15:16] LABS: Albumin Globulin Ratio 1.2 (0.9-2); Alkaline Phosphatase 76 U/L (45-117); Bilirubin,Total 1.5 mg/dl (0.2-1); Globulin 3.3 gm/dl (2.5-4.0); Total Protein 7.3 gm/dl (6.4-8.2); Troponin I < 0.015 ng/ml (0-0.045)
[2018-11-03 15:21] LABS: Acetaminophen < 2 ug/ml (10-30); Lithium 0.6 mmol/L (0.6-1.2); Salicylate < 1.7 mg/dl (2.8-20)
[2018-11-03 15:25] LABS: Appearance Urine Clear (Clear); Bilirubin Urine Negative (Negative); Blood Urine Negative (Negative); Color Urine Yellow; Glucose Urine UA Negative (Negative); Ketones Urine Negative (Negative); Leukocyte Esterase Urine Negative (Negative); Nitrite Urine Negative (Negative); Protein Urine Negative (Negative); Specific Gravity Urine 1.014 (1.000-1.030); Urobilinogen Urine Negative (Negative)
[2018-11-03 15:42] LABS: Lyme Ab IgG w/WB Rflx Negative (Negative); Lyme Ab IgM w/WB Rflx Negative (Negative)
[2018-11-03 16:06] LABS: Amphetamines+Metham, Urine Neg (Neg); Barbiturates, Urine Neg (Neg); Benzodiazepine, Urine Neg (Neg); Cocaine, Urine Neg (Neg); MDMA (Ecstacy), Urine Neg (Neg); Methadone, Urine Neg (Neg); Opiate, Urine Neg (Neg); Phencyclidine, Urine Neg (Neg)
[2018-11-03] MEDS ORDERED: ACETAMINOPHEN 325 MG TAB PO STA (17:35)
--- NOTE | 2018-11-03 18:08 | Emergency Department Note ---
Entered by Linda Reveles acting as a scribe for Edy Eid MD ED Provider Note CHIEF COMPLAINT: Mental Health Evaluation HISTORY OF PRESENT ILLNESS: The patient is a 58 year old female who presents to the Emergency Room with c omplaints of needing a mental health evaluation. She was brought to the ED via EMS. She states she is feeling "shaky" and unwell. This is her 5th visit to the ED in the past 3 days. She complains of her ankles "locking up" and her feet are numb and "tingling". She thinks there is something medically wrong with her. The patient was weaned off Ativan during her recent 28 day stay at [address] [place] [address]. She sta sacha she is afraid to be at home alone. She lives in [place] and has been there for 20 years. She does have a son that lives nearby, but states he is not supportive of her mental health issues. She states she likes to go shopping and try deep breathing when she gets stressed out. Her Psychiatrist is Dr. Borden at [facility] and she has not seen him since before she was treated by [address] [place] [address]. She has a follow up appointment with him this coming Monday, in 5 days. She does have a new Electrician L[employer]otive through [employer] and is supposed to meet with her this coming week. The patient notes her appetite has been poor recently and she thinks she is losing weight. She does admit to some loss of bladder control and has "wet herself" 3 times today. She denies any recent SI or HI. Pt denies LOC, headache, fevers, chills, diaphoresis, visual changes, neck pain, chest pain, breathing difficulties, nausea, vomiting, abdominal pain, back pain, melena, hematochezia, urinary symptoms, numbness, weakness, lymphadenopathy, rash, or other complaints. REVIEW OF SYSTEMS: See HPI for pertinent positives and negatives. A total of ten systems were reviewed and were otherwise negative. PMHx/PSHx: Anxiety, depression, bipolar disorder, emphysema, restless leg syndrome. SOCIAL HISTORY: Patient lives at home. PHYSICAL EXAM: GENERAL: Awake, alert, very anxious and tremulous-appearing, in no distress HENT: Normocephalic, atraumatic. Oropharynx unremarkable. EYES: PERRL. Normal conjunctiva. Sclera non-icteric. NECK: Inspection normal. Non-tender. Supple. No nuchal rigidity. FROM. No masses. RESPIRATORY: Clear to auscultation. No wheezes. No rales. Normal respiratory effort. CARDIAC: Normal rate. Normal rhythm. No murmurs. No rubs. Extremities warm and well perfused. Pulses equal. No JVD. GI: Soft, non-distended. No tenderness to palpation. No rebound or guarding. No masses. RECTAL: Deferred. MUSCULOSKELETAL: Atraumatic. Chest examination reveals no tenderness. The back is scoliotic on inspection. There is no CVA tenderness to palpation. No joint edema. LOWER EXTREMITIES: Calves are equal size bilaterally and non-tender. No edema. No discoloration. NEURO: Normal sensorium. No sensory or motor deficits noted. No clonus, no hyperreflexia, no drift, normal rapid alternating movements. SKIN: No rash or jaundice noted. PSYCHIATRIC: No SI or HI. EMERGENCY DEPARTMENT COURSE: 1415: Past medical records reviewed. The patient was evaluated in room A5, and a complete history and physical examination were performed. 1650: The patient was feeling better, but is currently anxious again. She is being evaluated by [address] [place] [address]. 1725: Lex, the Psychiatric Electrician Locomotive informed me the patient has been accepted at [address] [place] [address]. She will be further evaluated. MEDICAL DECISION MAKING: A5 Prior records/ancillary studies reviewed. Patient has had multiple visits for similar complaints. Triage Nursing notes reviewed and agree them. The patient's history was concerning for possible psychiatric disturbance. Differential diagnosis: Etiologies such as mood disorder, infection, hypoglycemia, electrolyte abnormal ities, cardiac sources, intracerebral event, toxicologic, neurologic, as well as others were entertained. Physical examination: The physical examination was performed as above and was completely benign. No emergent medical pathologies were noted. Patient was anxious. She is thin. There is no hyperreflexia or clonus. ER treatment provided: Oral Vistaril 50 mg On reassessment the patient felt better. Patient was having anxiety again after evaluation by [address] [place] [address] Oral Vistaril 25 mg Diagnostic interpretation by me: The electrocardiogram was negative for pathologic change. The labs revealed an unremarkable CBC and chemistry panel. Tox screen negative. Consultation: Consultation was made with [address] [place] [address] due to the patient's significant anxiety and inability to function at home. She was evaluated and admission was recommended. The patient was voluntarily admitted. IMPRESSION: Mood Disorder PLAN: Further Evaluated by [address] The scribe's documentation has been prepared under my direction and personally reviewed by me in its entirety. I confirm that the note above accurately reflects all work, treatment, procedures, and medical decision making performed by me. Impression & Plan Mood disorder Past Med/Surg History Medical History Bipolar disorder (Chronic) Scoliosis (Chronic) Depression (Chronic) Paranoia (Resolved 04/02/13) Acute anxiety (Inactive) Restless legs syndrome (Inactive) Emphysema lung Surgical History Hx of spinal surgery Social History Preferred Language: Palauan Communication Ability: Effective Visual Impairment: No Limitations Hearing Ability: Normal Senior [employer] Required: No Beliefs That Will Affect Care: None marital status: current occupational status: unemployed Feels Safe at Home: No Smoking Status: Former smoker Tobacco Type: cigarettes ; Hx Alcohol Use: No Hx Substance Use: Yes Results & Data Vital Signs Vital Signs - 24 hr 11/03/18 14:00 11/03/18 16:09 Temperature 36.8 C Temperature Source Oral Sepsis Recent Fever Within 48 Hours No Sepsis New/Unexplained Change in Mental Status No Sepsis Action Taken by Nursing No Action Required Pulse Rate 96 H Pulse Rate [Left Finger] 84 Pulse Rhythm Regular Pulse Strength Normal Respiratory Rate 18 20 Respiratory Effort / Characteristics Non-Labored Spontaneous Non-Labored Spontaneous Respiratory Depth Normal Normal Respiratory Pattern Regular Regular Blood Pressure 123/72 Blood Pressure [Left Arm] 140/65 Blood Pressure Mean 89 Blood Pressure Mean [Left Arm] 90 Blood Pressure Position [Left Arm] Lying Pulse Oximetry 96 95 Oxygen Delivery Method Room Air Room Air Home Medications Current Medication List: was personally reviewed by me Laboratory Data Attestation: I reviewed the patient's lab results. Result diagrams: 11/03/18 14:33 11/03/18 14:33 Lab Results 11/03/18 11/03/18 11/03/18 Range/Units 14:33 14:33 14:33 WBC 9.15 (4.8-10.8) K/uL RBC 4.51 (4.2-5.4) M/uL Hgb 14.9 (12.0-16.0) g/dL Hct 42.8 (37-47) % MCV 94.9 (80-100) fL MCH 33.0 (25-34) pg MCHC 34.8 (32-36) g/dL RDW Std Deviation 44.1 (36.4-46.3) fL RDW Coeff of Haley 12.8 (11.5-14.5) % Plt Count 231 (130-400) K/uL MPV 9.7 (7.4-10.4) fL Immature Gran % (Auto) 0.1 % Neut % (Auto) 72.3 % Lymph % (Auto) 20.5 % [place] % (Auto) 6.3 % Eos % (Auto) 0.4 % Baso % (Auto) 0.4 % Immature Gran # (Auto) 0.01 (0.00-0.02) K/uL Neut # (Auto) 6.60 H (1.4-6.5) K/uL Lymph # (Auto) 1.88 (1.2-3.4) K/uL [place] # (Auto) 0.58 (0.11-0.59) K/uL Eos # (Auto) 0.04 (0-0.5) K/uL Baso # (Auto) 0.04 (0-0.2) K/uL Sodium 142 (136-145) mmol/L Potassium 3.9 (3.5-5.1) mmol/L Chloride 109 H (98-107) mmol/L Carbon Dioxide 28 (21-32) mmol/L Anion Gap 5.0 (3-11) BUN 17 (7-18) mg/dl Creatinine 0.76 (0.6-1.2) mg/dl Est Cr Clr Drug Dosing 60.5 ml/min Est GFR ( Amer) 100.2 Est GFR (Non-Af Amer) 86.5 BUN/Creatinine Ratio 22.0 H (10-20) Glucose 103 H (70-99) mg/dl Calcium 9.3 (8.5-10.1) mg/dl Total Bilirubin 1.5 H (0.2-1) mg/dl AST 20 (15-37) U/L ALT 48 (12-78) U/L Alkaline Phosphatase 76 (45-117) U/L Troponin I < 0.015 (0-0.045) ng/ml Total Protein 7.3 (6.4-8.2) gm/dl Albumin 4.0 (3.4-5.0) gm/dl Globulin 3.3 (2.5-4.0) gm/dl Albumin/Globulin Ratio 1.2 (0.9-2) TSH 1.360 (0.300-4.500) uIu/ml Salicylates < 1.7 L (2.8-20) mg/dl Acetaminophen < 2 L (10-30) ug/ml [place] 0.6 (0.6-1.2) mmol/L Ethyl Alcohol mg/dL (0-3) mg/dl Lyme Disease IgG Ab (Negative) Lyme Disease IgM Ab (Negative) 11/03/18 11/03/18 11/03/18 Range/Units 14:33 14:35 14:35 WBC (4.8-10.8) K/uL RBC (4.2-5.4) M/uL Hgb (12.0-16.0) g/dL Hct (37-47) % MCV (80-100) fL MCH (25-34) pg MCHC (32-36) g/dL RDW Std Deviation (36.4-46.3) fL RDW Coeff of Haley (11.5-14.5) % Plt Count (130-400) K/uL MPV (7.4-10.4) fL Immature Gran % (Auto) % Neut % (Auto) % Lymph % (Auto) % [place] % (Auto) % Eos % (Auto) % Baso % (Auto) % Immature Gran # (Auto) (0.00-0.02) K/uL Neut # (Auto) (1.4-6.5) K/uL Lymph # (Auto) (1.2-3.4) K/uL [place] # (Auto) (0.11-0.59) K/uL Eos # (Auto) (0-0.5) K/uL Baso # (Auto) (0-0.2) K/uL Sodium (136-145) mmol/L Potassium (3.5-5.1) mmol/L Chloride (98-107) mmol/L Carbon Dioxide (21-32) mmol/L Anion Gap (3-11) BUN (7-18) mg/dl Creatinine (0.6-1.2) mg/dl Est Cr Clr Drug Dosing ml/min Est GFR ( Amer) Est GFR (Non-Af Amer) BUN/Creatinine Ratio (10-20) Glucose (70-99) mg/dl Calcium (8.5-10.1) mg/dl Total Bilirubin (0.2-1) mg/dl AST (15-37) U/L ALT (12-78) U/L Alkaline Phosphatase (45-117) U/L Troponin I Cancelled (0-0.045) ng/ml Total Protein (6.4-8.2) gm/dl Albumin (3.4-5.0) gm/dl Globulin (2.5-4.0) gm/dl Albumin/Globulin Ratio (0.9-2) TSH (0.300-4.500) uIu/ml Salicylates (2.8-20) mg/dl Acetaminophen (10-30) ug/ml [place] Cancelled (0.6-1.2) mmol/L Ethyl Alcohol mg/dL < 3.0 (0-3) mg/dl Lyme Disease IgG Ab (Negative) Lyme Disease IgM Ab (Negative) 11/03/18 Range/Units 14:35 WBC (4.8-10.8) K/uL RBC (4.2-5.4) M/uL Hgb (12.0-16.0) g/dL Hct (37-47) % MCV (80-100) fL MCH (25-34) pg MCHC (32-36) g/dL RDW Std Deviation (36.4-46.3) fL RDW Coeff of Haley (11.5-14.5) % Plt Count (130-400) K/uL MPV (7.4-10.4) fL Immature Gran % (Auto) % Neut % (Auto) % Lymph % (Auto) % [place] % (Auto) % Eos % (Auto) % Baso % (Auto) % Immature Gran # (Auto) (0.00-0.02) K/uL Neut # (Auto) (1.4-6.5) K/uL Lymph # (Auto) (1.2-3.4) K/uL [place] # (Auto) (0.11-0.59) K/uL Eos # (Auto) (0-0.5) K/uL Baso # (Auto) (0-0.2) K/uL Sodium (136-145) mmol/L Potassium (3.5-5.1) mmol/L Chloride (98-107) mmol/L Carbon Dioxide (21-32) mmol/L Anion Gap (3-11) BUN (7-18) mg/dl Creatinine (0.6-1.2) mg/dl Est Cr Clr Drug Dosing ml/min Est GFR ( Amer) Est GFR (Non-Af Amer) BUN/Creatinine Ratio (10-20) Glucose (70-99) mg/dl Calcium (8.5-10.1) mg/dl Total Bilirubin (0.2-1) mg/dl AST (15-37) U/L ALT (12-78) U/L Alkaline Phosphatase (45-117) U/L Troponin I (0-0.045) ng/ml Total Protein (6.4-8.2) gm/dl Albumin (3.4-5.0) gm/dl Globulin (2.5-4.0) gm/dl Albumin/Globulin Ratio (0.9-2) TSH (0.300-4.500) uIu/ml Salicylates (2.8-20) mg/dl Acetaminophen (10-30) ug/ml [place] (0.6-1.2) mmol/L Ethyl Alcohol mg/dL (0-3) mg/dl Lyme Disease IgG Ab Negative (Negative) Lyme Disease IgM Ab Negative (Negative) Administered Medications Discontinued Medications Acetaminophen (Tylenol) 650 mg PO NOW STA Stop: 11/03/18 17:36 Last Admin: 11/03/18 17:41 Dose: 650 mg Documented by: [id number] Hydroxyzine HCl (Vistaril) 50 mg PO NOW STA Stop: 11/03/18 14:28 Last Admin: 11/03/18 14:45 Dose: 50 mg Documented by: [id number] Hydroxyzine HCl (Vistaril) 25 mg PO NOW STA Stop: 11/03/18 17:36 Last Admin: 11/03/18 17:41 Dose: 25 mg Documented by: [id number] ECG Data Attestation: I personally reviewed and interpreted this ECG as follows: Indication: other (mental health evaluation) Rate (beats per minute): 80 Rhythm: sinus rhythm Findings: + other (Short ND interval, poor baseline data) and + nonspecific-ST abn; no PAC and no PVC Blood Pressure Blood Pressure Findings: Elevated blood pressure Blood Pressure Disposition: further management by hospitalist Discharge Plan Visit Data Chief Complaint: Mental Health Evaluation ED Provider: Edy Eid Discharge Problem: Mood disorder Patient Disposition: Still a Patient Discharge Instructions Interventions: ED Discharge Assessment Last Done: 11/03/18 18:22 The scribe's documentation has been prepared under my direction and personally reviewed by me in its entirety. I confirm that the note above accurately reflects all work, treatment, procedures, and medical decision making performed by me.
[2018-11-03] MEDS ORDERED: BISMUTH SUBSALICYLATE PER ML OMNICELL CHARGE PO PRN (18:14)
[2018-11-03] MEDS ORDERED: SODIUM CHLORIDE 0.65% NA SOLN 45 ML (OCEAN) PRN (18:14)
[2018-11-03] MEDS ORDERED: MAGNESIUM HYDROXIDE SUSP 30 ML UDC PO PRN (18:14)
[2018-11-03] MEDS ORDERED: ACETAMINOPHEN 325 MG TAB PO PRN (18:14)
[2018-11-03] MEDS ORDERED: ALUMINUM/MAGNESIUM SUSP 30 ML UDC PO PRN (18:14)
[2018-11-03] MEDS ORDERED: HALOPERIDOL 5 MG TAB PO PRN (18:26)
[2018-11-03] MEDS: NICOTINE 21 MG/24 HR TDSY TD SCH (21:11)
[2018-11-03] MEDS: TOLTERODINE TARTRATE 2 MG TAB PO SCH (21:13)
[2018-11-03] MEDS: LITHIUM CARBONATE 300 MG TAB PO SCH (21:13)
[2018-11-03] MEDS: AMANTADINE HCL 100 MG CAPSULE PO SCH (21:14)
[2018-11-03] MEDS: HALOPERIDOL 5 MG TAB PO SCH (21:14)
[2018-11-03] MEDS: MoRPHine SULFATE CR 15 MG TABCR PO SCH (21:14)
[2018-11-03] MEDS: MIRTAZAPINE TAB 15 MG TAB PO SCH (21:14)
[2018-11-04] MEDS: HALOPERIDOL 5 MG TAB PO SCH ×3 (06:27→20:41)
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
[2018-11-04] MEDS: lamoTRIgine 25 MG TAB PO SCH (09:31)
[2018-11-04] MEDS: MULTIVITAMIN TAB PO SCH (09:31)
[2018-11-04] MEDS: ATORVASTATIN 20 MG TAB PO SCH (09:31)
[2018-11-04] MEDS: AMANTADINE HCL 100 MG CAPSULE PO SCH ×3 (09:31→20:42)
[2018-11-04] MEDS: LITHIUM CARBONATE 300 MG TAB PO SCH ×2 (09:31→20:41)
[2018-11-04] MEDS: TOLTERODINE TARTRATE 2 MG TAB PO SCH ×2 (09:31→20:42)
[2018-11-04] MEDS: NICOTINE 21 MG/24 HR TDSY TD SCH (09:32)
[2018-11-04] MEDS: LORazepam 1 MG TAB PO PRN (13:46)
[2018-11-04] MEDS: MoRPHine SULFATE CR 15 MG TABCR PO SCH (20:42)
[2018-11-04] MEDS: MIRTAZAPINE TAB 15 MG TAB PO SCH (20:43)
[2018-11-05] MEDS: LORazepam 1 MG TAB PO PRN (03:08)
[2018-11-05] MEDS: HALOPERIDOL 5 MG TAB PO SCH ×3 (06:43→13:17)
[2018-11-05] MEDS: TOLTERODINE TARTRATE 2 MG TAB PO SCH ×2 (07:28→20:56)
[2018-11-05] MEDS: LITHIUM CARBONATE 300 MG TAB PO SCH ×2 (07:29→20:55)
[2018-11-05] MEDS: lamoTRIgine 25 MG TAB PO SCH (07:29)
[2018-11-05] MEDS: MULTIVITAMIN TAB PO SCH (07:29)
[2018-11-05] MEDS: NICOTINE 21 MG/24 HR TDSY TD SCH (07:29)
[2018-11-05] MEDS: ATORVASTATIN 20 MG TAB PO SCH (07:29)
[2018-11-05] MEDS: AMANTADINE HCL 100 MG CAPSULE PO SCH (07:30)
[2018-11-05] MEDS ORDERED: DiphenhydrAMINE HCL 50 MG/ML VIAL IM STA (09:49)
[2018-11-05] MEDS: LORazepam 1 MG TAB PO SCH ×3 (10:00→20:52)
--- NOTE | 2018-11-05 12:12 | Psychiatric Progress Note ---
Date of Service November 05, 2018 Impression / Recommendations Impression 58-year-old female admitted voluntarily for inpatient psychiatric treatment, re- admitted 3 days after requesting discharge from our facility. At time of discharge on 10/31/18, the patient had demonstrated several days of stability of mood and anxiety level. She was attending to ADLs independently on the unit and eating regularly. We had recommended patient remain on the unit an additional day to ensure stability prior to discharge. Pt was not perceived to be at acute risk of harm to self at that time, and she continued to request discharge despite recommendations due to having transportation available only on the day of discharge. At that time, patient had verbalized an understanding of discharge plans and utilization of her coping strategies. Pt had presented to the ED 4 times since her admission due to reports of "medication side effects" and "anxiety." On her 5th presentation, the patient verbalized realization that she was unable to properly care for herself at home, she was accepted volunt arily due to failed outpatient treatment attempts and significant anxiety. The patient reports that the reason she repeatedly returned to the emergency room was that she was having continuous panic attacks. She stated, "I had come to the emergency room because of a panic attack. They did give me something, I calm down, I go home, and then I have another panic attack and have to come back." 1 of the reasons we had elected not to give the patient is a supply of lorazepam or any other benzodiazepine was that she had been taking morphine, as prescribed by her primary care provider for chronic back pain. However, the patient asserts that she has met the goal of discontinuing morphine and is not taking any other opioid medication. This seems to be confirmed by the tox screen completed at admission. During the most recent previous admission, she had experienced intermittent catatonia and severe anxiety, all of which seems to have been successfully treated with substantial improvement through lorazepam 1 mg 2 or 3 times a day. Accordingly, we will place patient back on a standing dose of lorazepam 1 mg 3 times a day. On examination in my office today she demonstrated significant cogwheel rigidity and was given an intramuscular injection of diphenhydramine 25 mg, together with lorazepam 1 mg by mouth. Shortly after the injection of diphenhydramine the patient reported that her "jumpy" sensation resolved and she is feeling "much better." I am going to recommend decreasing the dose of haloperidol to a dose of 2.5 mg twice a day and we will admit the 5 mg dose at bedtime. She is taking amantadine 100 mg 3 times daily, but she reports that this morning a 2.5 mg dose of Haldol caused the restless "jumpy" feeling to return, and so I will offer her diphenhydramine 12.5 mg twice a day for EPS and for anxiety. Although the patient has been readmitted, her mental status is somewhat improved from her condition during much of her previous admission wherein she was delusional and comfortable, believe that she was or was about to be "executed." Lamotrigine was started at 25 mg daily at the end of September, was subsequently increased to 50 mg a day. We will further increase the dose to 75 mg once daily. The patient was reminded to continue to monitor herself for development of a rash and is aware to advise staff if any rash develops or if there is any question regarding this. She is also aware of that potential for Wilks-Dale syndrome, and realizes that this may result in if not reported promptly (in combination with medication cessation). (1) Bipolar disorder: 11/04 - Continue current medication regimen of haloperidol 2.5/2.5/5mg; lamotrigine 50mg qAM; mirtazapine 30mg qHS; lithium 300mg BID; and amantadine 100mg TID - Will having haloperidol 2.5mg dosing available as prn - As patient's condition worsened and was not responding favorably to haloperidol, lorazepam 1mg prn dosing was ordered, it remains the plan that patient is not to be discharged on lorazepam unless going to a supervised setting - Admitted to a locked inpatient behavioral health unit, on q15 minute safety checks - Encourage participation in group and recreational therapies - Suggest involvement of outpatient supports in safety planning - Confirm aftercare arrangements made during previous admission 11/05 -The patient's main complaint currently is anxiety and panic. She also endorses feelings of depression, but within the context of anxious distress. She does not present with symptoms of sarthak or hypomania present. -The plan today is to increase her dose of lamotrigine to a dose of 75 mg a day, and we will continue to monitor for the development of a rash and other side effects associated with lamotrigine. (2) Anxiety: 11/04 - Continue home medication regimen - Lorazepam 1mg prn as discussed above - Hydroxyzine available for acute anxiety prn - Encourage ongoing development of healthy and effective coping strategies - Explore options that allow the patient to maintain stability on an outpatient basis 11/05/18 -Patient has positive cogwheel rigidity within the context of administration of haloperidol. The patient has a past history of extraparametal side effects and it appears that at least some of the patient's anxiety is associated with no side effects. -She is responded favorably today to a stat dose of diphenhydramine 25 mg IM, and we will order a standing dose of diphenhydramine 12.5 mg twice a day for extraparametal side effects as well as for anxiety. -We have been reluctant to discharge the patient on a standing dose of lorazepam at discharge during her most recent previous admission because of the history of using opioid-based pain medications for back pain on an ongoing basis. During the last admission, the patient told us that 1 of her goals was to discontinue pain medications because she feels that they may occur "dopey" and prevent her from feeling motivated to do much of anything. She reports that she has not taken any opioids since discharge and intends to not use any further medications and this drug classification. Also, the patient clearly had a very favorable response to relatively low doses of lorazepam during the last day, including as a treatment for severe agitation and for catatonia. Accordingly, the plan is to institute Ativan by mouth 1 mg 3 times a day as a standing dose, plus as needed additional medications for anxiety. The patient has been counseled regarding addiction potential, the increased risk for accidents and falls, and the potential that it can worsen depression and impaired mental alertness. The patient has indicated understanding. (3) Chronic pain: 11/04 - Was previously discharged on morphine 15mg qHS with high-dose Tylenol available prn for breakthrough pain - Continue this regimen for now, though it seems patient had not been utilizing her morphine as an outpatient - Ensure communication with patient's PCP, prior discussion led to decision for pain management referral Inventory Assets Strengths: established providers, voluntary admission Needs: Adequate support and coping strategies to maintain stability on an outpatient basis Risk Factors Assessment Male: No : Yes Do You Have Access To A Gun?: No Health Problems: Yes Mental Health Diagnoses: Yes Substance Use Disorders: No Previous Attempt: No Family History of Suicide: No Previous Psychiatric Hospitalization: Yes Hopelessness: Yes Smoker: Yes Protective Factors Assessment Sabianism Beliefs: Yes : No Responsible for Young Children: No Employed: No Good Rapport with Provider: Yes Interval History Chief Complaint "[]". Review of Systems Sleep Information Total Hours of Sleep: 5.75 Meal Information Percent Meal Consumed - Breakfast: 100 Percent Meal Consumed - Lunch: 25 Percent Meal Consumed - Dinner: 100 Subjective Subjective Patient was seen & assessed and interval progress reviewed with [treatment team] [nursing and social work] Physical Exam Psychiatric Orientation: oriented x 3 Apperance: appropriately dressed and + disheveled Eye Contact: + fair eye contact Motor Behavior: + akathisia (Cogwheel rigidity on testing. The patient has recently received Haldol and reports that her restlessness and stiffness increased after this morning's dose of Haldol.) and + tremor (3-5 beat tremor upper extremities and lower extremities bilaterally) Speech is spontaneous, but somewhat soft and slowed. Affect: + depressed affect and + anxious affect Mood: + depressed mood and + anxious mood Thought Process: goal directed thought process Thought Content: reality based without delusions (The patient voiced no systematized delusional believes. She often refers to herself as "" or states, "it is too late for me," but she made no such statements today.) Suicidal Thoughts: denies suicidal thoughts and denies suicidal plan Homicidal Thoughts: denies homicidal thoughts and denies homicidal plan Hallucinations: no auditory hallucinations and no visual hallucinations Cognition: recent memory grossly intact and remote memory grossly intact Estimated Intelligence: + above average estimated intelligence Insight: + poor insight Judgement: + limited judgement Vital Signs (Past 24 Hours) Last Vital Signs Temp 36.6 C 11/05/18 07:00 Pulse 81 11/05/18 07:01 Resp 18 11/05/18 07:00 BP 120/58 L 11/05/18 07:01 Pulse Ox 99 11/05/18 03:15 Results & Data Current Inpatient Medications Current Inpatient Medications: Current Inpatient Medications Acetaminophen (Tylenol) 1,000 mg PO Q6H PRN PRN Reason: pain Stop: 12/03/18 18:19 Al Hydrox/Mg Hydrox/Simethicone (Maalox) 30 ml PO Q4H PRN PRN Reason: GI Upset Stop: 12/03/18 18:13 Amantadine HCl (Symmetrel) 100 mg PO TID [facility] Stop: 12/03/18 20:59 Last Admin: 11/05/18 07:30 Dose: 100 mg Documented by: Atorvastatin Calcium (Lipitor) 20 mg PO QAM [facility] Stop: 12/04/18 08:59 Last Admin: 11/05/18 07:29 Dose: 20 mg Documented by: Bismuth Subsalicylate (Kaopectate) 15 ml PO PRN PRN PRN Reason: Loose Stool Stop: 12/03/18 18:13 Haloperidol (Haldol) 2.5 mg PO [id number] [facility] Stop: 12/04/18 06:59 Last Admin: 11/05/18 06:51 Dose: 2.5 mg Documented by: Haloperidol (Haldol) 5 mg PO HS [facility] Stop: 12/03/18 20:59 Last Admin: 11/04/18 20:41 Dose: 5 mg Documented by: Haloperidol (Haldol) 2.5 mg PO Q4H PRN PRN Reason: agitation/anxiety Stop: 12/03/18 18:25 Last Admin: 11/04/18 12:32 Dose: 2.5 mg Documented by: Hydroxyzine HCl (Vistaril) 50 mg PO HSZ PRN PRN Reason: Insomnia Stop: 12/03/18 18:13 Last Admin: 11/04/18 00:26 Dose: 50 mg Documented by: Hydroxyzine HCl (Vistaril) 25 mg PO Q4H PRN PRN Reason: Anxiety Stop: 12/03/18 18:13 Last Admin: 11/04/18 09:31 Dose: 25 mg Documented by: Lamotrigine (Lamictal) 50 mg PO QAM [facility] Stop: 12/04/18 08:59 Last Admin: 11/05/18 07:29 Dose: 50 mg Documented by: [place] Carbonate ([place] Carbonate) 300 mg PO BID [facility] Stop: 12/03/18 20:59 Last Admin: 11/05/18 07:29 Dose: 300 mg Documented by: Lorazepam (Ativan) 1 mg PO Q6H PRN PRN Reason: Anxiety Stop: 12/04/18 13:18 Last Admin: 11/05/18 03:08 Dose: 1 mg Documented by: Lorazepam (Ativan) 1 mg PO TID [facility] Stop: 12/05/18 13:59 Last Admin: 11/05/18 10:00 Dose: 1 mg Documented by: Magnesium Hydroxide (Milk Of Magnesia) 30 ml PO DAILY PRN PRN Reason: Heartburn Stop: 12/03/18 18:13 Mirtazapine (Remeron) 15 mg PO HS [facility] Stop: 12/03/18 20:59 Last Admin: 11/04/18 20:43 Dose: 15 mg Documented by: Miscellaneous (Remove Nicoderm Patch) 1 ea N/A [facility] Stop: 12/04/18 08:58 Last Admin: 11/04/18 20:46 Dose: Not Given Documented by: Morphine Sulfate (Ms Contin) 15 mg PO [facility] Stop: 11/17/18 20:59 Last Admin: 11/04/18 20:42 Dose: 15 mg Documented by: Multivitamins (Multivitamin Tab) 1 tab PO QAM [facility] Stop: 12/04/18 08:59 Last Admin: 11/05/18 07:29 Dose: 1 tab Documented by: Nicotine (Nicoderm Cq) 21 mg TD QAM [facility] Stop: 12/03/18 19:59 Last Admin: 11/05/18 07:29 Dose: 21 mg Documented by: Ranitidine HCl (Zantac) 300 mg PO BID [facility] Stop: 12/03/18 20:59 Last Admin: 11/05/18 07:30 Dose: 300 mg Documented by: Sodium Chloride ([place] Nasal) 1 - 2 sprays NA PRN PRN PRN Reason: Nasal Dryness/Congestion Stop: 12/03/18 18:13 Tolterodine Tartrate (Detrol) 2 mg PO BID [facility] Stop: 12/03/18 20:59 Last Admin: 11/05/18 07:28 Dose: 2 mg Documented by: Mental Health & Subst Abuse Tx Psychiatrist Name of Psychiatrist: [facility] - Dr. Borden Psychiatrist's Psychiatric Appointment Comment: [address], [facility] [address] [place] Therapist Name of Therapist: [facility] Duncan Weiner Therapist's Therapy Appointment Comment: [address], [facility] [address], [place] Arboriculture Teacher Name of Arboriculture Teacher: [facility] [place] Phone Number for Arboriculture Teacher: [phone] Post Discharge Appointments Primary Care Physician Name Of Family Doctor: [facility] - Dr. Yovany Davis Primary Care Date of Appointment with PCP: 11/15/18 Time of Appointment with PCP: 3:30 p.m. Provider Appointment Comment: [address], [address], [place], [place] Contact Information Discharge Discharge Address: [address] [place] [address] CPT Code CPT Code 98630 (1) Chronic pain Chronic pain type: other chronic pain Qualified Code(s): G89.29 - Other chronic pain (2) Bipolar disorder Active/Remission status: currently active Current bipolar episode type: depressed Current episode severity: severe Psychotic features: with psychotic features Qualified Code(s): F31.5 - Bipolar disorder, current episode d epressed, severe, with psychotic features
[2018-11-05] MEDS: ACETAMINOPHEN 500 MG TAB PO PRN (13:17)
[2018-11-05] MEDS: MIRTAZAPINE TAB 15 MG TAB PO SCH (20:56)
[2018-11-05] MEDS: MoRPHine SULFATE CR 15 MG TABCR PO SCH ×2 (22:55→23:13)
[2018-11-06] MEDS: HALOPERIDOL 5 MG TAB PO SCH ×2 (06:48→13:25)
[2018-11-06] MEDS: LORazepam 1 MG TAB PO SCH ×3 (07:03→20:33)
[2018-11-06] MEDS: TOLTERODINE TARTRATE 2 MG TAB PO SCH ×2 (07:04→20:32)
[2018-11-06] MEDS: diphenhydrAMINE HCl 12.5 MG/5 ML UDC PO SCH ×2 (07:04→20:32)
[2018-11-06] MEDS: LITHIUM CARBONATE 300 MG TAB PO SCH ×2 (07:05→20:32)
[2018-11-06] MEDS: ATORVASTATIN 20 MG TAB PO SCH (07:05)
[2018-11-06] MEDS: lamoTRIgine 25 MG TAB PO SCH (07:05)
[2018-11-06] MEDS: NICOTINE 21 MG/24 HR TDSY TD SCH (07:06)
[2018-11-06] MEDS: MULTIVITAMIN TAB PO SCH (07:06)
--- NOTE | 2018-11-06 09:36 | Psychiatric Progress Note ---
Date of Service November 06, 2018 Impression / Recommendations Impression 58-year-old female admitted voluntarily for inpatient psychiatric treatment, re- admitted 3 days after requesting discharge from our facility. At time of discharge on 10/31/18, the patient had demonstrated several days of stability of mood and anxiety level. She was attending to ADLs independently on the unit and eating regularly. We had recommended patient remain on the unit an additional day to ensure stability prior to discharge. Pt was not perceived to be at acute risk of harm to self at that time, and she continued to request discharge despite recommendations due to having transportation available only on the day of discharge. At that time, patient had verbalized an understanding of discharge plans and utilization of her coping strategies. Pt had presented to the ED 4 times since her admission due to reports of "medication side effects" and "anxiety." On her 5th presentation, the patient verbalized realization that she was unable to properly care for herself at home, she was accepted volunt arily due to failed outpatient treatment attempts and significant anxiety. Pt was placed back on a standing dose of lorazepam 1 mg 3 times a day, as HS morphine has now been discontinued. Lamotrigine was titrated to 75mg daily. Pt was provided with diphenhydramine to target EPS as well as anxiety, and amantadine was discontinued. Pt continues to utilize Detrol for incontinence, though we plan to explore availability of outpatient supports to crop picker Vesicare at a retail pharmacy, as patient had responded well to this non- formulary medication previously. On examination today, patient appears far less restless. Passive range of motion is predominantly fluid with mild intermittent rigidity observed only at the extremes of range of motion. Of note, patient had received her AM medicati ons (to include diphenhydramine to target EPS) just prior to our encounter. Recommend continued observations for EPS - but appear significantly improved at this time. She makes no mention of , or believing she has . She speaks of returning home, and is able to summarize her visit with her nurse case manager yesterday. Pt states she would be most in favor of home health nurses, and does not feel she is in need of assisted living at this time. (1) Anxiety: 11/04 - Continue home medication regimen - Lorazepam 1mg prn as discussed above - Hydroxyzine available for acute anxiety prn - Encourage ongoing development of healthy and effective coping strategies - Explore options that allow the patient to maintain stability on an outpatient basis 11/05/18 -Patient has positive cogwheel rigidity within the context of administration of haloperidol. The patient has a past history of extraparametal side effects and it appears that at least some of the patient's anxiety is associated with no side effects. -She is responded favorably today to a stat dose of diphenhydramine 25 mg IM, and we will order a standing dose of diphenhydramine 12.5 mg twice a day for extraparametal side effects as well as for anxiety. -We have been reluctant to discharge the patient on a standing dose of lorazepam at discharge during her most recent previous admission because of the history of using opioid-based pain medications for back pain on an ongoing basis. During the last admission, the patient told us that 1 of her goals was to discontinue pain medications because she feels that they may occur "dopey" and prevent her from feeling motivated to do much of anything. She reports that she has not taken any opioids since discharge and intends to not use any further medications and this drug classification. Also, the patient clearly had a very favorable response to relatively low doses of lorazepam during the last day, including as a treatment for severe agitation and for catatonia. Accordingly, the plan is to institute Ativan by mouth 1 mg 3 times a day as a standing dose, plus as needed additional medications for anxiety. The patient has been counseled regarding addiction potential, the increased risk for accidents and falls, and the potential that it can worsen depression and impaired mental alertness. The patient has indicated understanding. 11/05 - Continue medication regimen as above, pt reports significant improvement in feelings of restlessness, mild tremor is still observed in hands specifically when unsupported. Shifting of weight between her legs when standing is far less noticeable and patient is appearing calmer overall. Will continue to assess for cogwheeling, mild evidence of this on exam this morning - however, patient had just received her AM medications to include oral diphenhydramine moments before our encounter. AIMS completed this morning - pt scoring a 1 for what may be mild athetosis in fingers during thumb tap, which may also be an extreme normal finding - increased rigidity in fingers and hands does appear to be improved, and this may be related to another cause as well (arthritic changes?) As monitoring of involuntary movements continue, we can determine if TID dosing of diphenhydramine may be beneficial, but will observe for now. - As anxiety is significantly improved, she is less restless, and less likely to be disruptive to a roommate. We will discontinue her medically necessary private room at this time. (2) Bipolar disorder: 11/04 - Continue current medication regimen of haloperidol 2.5/2.5/5mg; lamotrigine 50mg qAM; mirtazapine 30mg qHS; lithium 300mg BID; and amantadine 100mg TID - Will having haloperidol 2.5mg dosing available as prn - As patient's condition worsened and was not responding favorably to haloperidol, lorazepam 1mg prn dosing was ordered, it remains the plan that patient is not to be discharged on lorazepam unless going to a supervised setting - Admitted to a locked inpatient behavioral health unit, on q15 minute safety checks - Encourage participation in group and recreational therapies - Suggest involvement of outpatient supports in safety planning - Confirm aftercare arrangements made during previous admission 11/05 -The patient's main complaint currently is anxiety and panic. She also endorses feelings of depression, but within the context of anxious distress. She does not present with symptoms of sarthak or hypomania present. -The plan today is to increase her dose of lamotrigine to a dose of 75 mg a day, and we will continue to monitor for the development of a rash and other side effects associated with lamotrigine. 11/06 - Continue current medication regimen as above (3) Chronic pain: 11/04 - Was previously discharged on morphine 15mg qHS with high-dose Tylenol available prn for breakthrough pain - Continue this regimen for now, though it seems patient had not been utilizing her morphine as an outpatient - Ensure communication with patient's PCP, prior discussion led to decision for pain management referral 11/06 - We had learned that the patient had not been utilizing her morphine at home - and upon further discussion, patient reported decently managed pain without morphine at HS - Given patient's misuse of the medication previous (not taking consistently, diverting, etc.) as well as her reports of adequate pain management on high-dose Tylenol, will plan to discontinue at this time to reduce risk of medication interaction with benzodiazepine and reduce potential for misuse as an outpatient. This was discussed with the patient who is in agreement with the plan - Will communicate with patient's PCP regarding this plan, requesting it not be prescribed again on discharge and that any available refills be canceled Inventory Assets Strengths: established providers, voluntary admission Needs: Adequate support and coping strategies to maintain stability on an outpatient basis Risk Factors Assessment Male: No : Yes Do You Have Access To A Gun?: No Health Problems: Yes Mental Health Diagnoses: Yes Substance Use Disorders: No Previous Attempt: No Family History of Suicide: No Previous Psychiatric Hospitalization: Yes Hopelessness: Yes Smoker: Yes Protective Factors Assessment Catholic Beliefs: Yes : No Responsible for Young Children: No Employed: No Good Rapport with Provider: Yes Interval History Identifying Information ALINA STONE is a 58-year-old F who currently lives in [place], [place] and was discharged from the hospital to live independently. Pt was admitted to our unit from 10/06/18 - 10/31/18. Despite demonstrating stability for several days prior to discharge, patient was unable to adequately care for herself in the outpatient setting, as she has presented to the ED 5 times since her discharge. Pt has a history of bipolar disorder and anxiety, and was admitted on 11/03/18 18:25 on a 201 voluntary commitment for worsening anxiety interfering with daily activities and inability to care for self in the outpatient setting, as evidenced by her multiple ED presentations. Chief Complaint "I'm feeling much better, except my bladder issue." Review of Systems Notes Constitutional: reports feeling well-rested today, improved sleep last evening Cardiovascular: denied Respiratory: denied Gastrointestinal: denied Neurological: reports mild persistent tremor Psychiatric: denies symptoms other than stated above Total of at least 10 systems reviewed, pertinent positives as above and in HPI. Sleep Information Total Hours of Sleep: 8.5 Meal Information Percent Meal Consumed - Breakfast: 100 Percent Meal Consumed - Lunch: 90 Percent Meal Consumed - Dinner: 100 Subjective Subjective Patient was seen & assessed and interval progress reviewed with nursing and social work. Staff report the patient appears improved in regard to restlessness and anxiety. Pt had reported to staff improvement with medication adjustments made yesterday. Pt was seen today to assess progress since admission. Pt states she is doing well today - reporting she is "feeling much better, except my bladder issue." We a discussed that she has not had a robust response to initiation of Detrol to manage urinary incontinence. We had reviewed her favorable response to Vesicare 10mg in the past, and discussed the possibility of support bringing in the medication if called in to a retail pharmacy. Pt states she has reached out to a friend and is awaiting a call. We discussed her current mood, which she states is much improved. Pt reports feeling far less restless. She states she "slept like a log" last evening, and is feeling "refreshed" this morning. We reviewed conversation with her nurse case manager from yesterday. Pt is to be considered for home health aids to assist her in remaining in her home. Pt states she was told to fill out paperwork for assisted living, but she is not sure she wants to be transitioned to this environment. We discussed the potentially long process involved in referrals, acceptance, and eventual placement. Pt was encourage to be honest with her nurse case manager about her desires, but to consider starting the paperwork so that the referral was in place should she decide later that assisted living would be in her best interest. Pt reported understanding of this concept and was agreeable to discussing further with her nurse case manager. Pt denies SI. She denies other needs or concerns today. Physical Exam Psychiatric Orientation: alert, oriented x 3 and cooperative Apperance: appropriately dressed (casually in sweater and jeans) and jessica ropriately groomed; + did not appear stated age (appearing older than stated age) Eye Contact: good eye contact Motor Behavior: steady gait and station and + tremor (mild, significantly improved today) Predominantly fluid passive range of motion, some mild intermittent rigidity noted only on extremes of range; no tics or fasciculations observed Speech: normal rate/rhythm/volume of speech Affect: + anxious affect (mild, and significantly improved ) and + constricted affect (smiles and jokes appropriately, but appears somewhat forced ) Mood: + anxious mood ("a little bit anxious still" and "I'm feeling much better") Thought Process: goal directed thought process, linear/logical thought process and clear/coherent thought process Thought Content: reality based without delusions; no preoccupation and no hopelessness Suicidal Thoughts: denies suicidal thoughts and denies suicidal intent Homicidal Thoughts: denies homicidal thoughts Hallucinations: no auditory hallucinations and no visual hallucinations Cognition: attention grossly intact and language grossly intact Estimated Intelligence: consistent with education level Insight: + fair insight Judgement: + fair judgement Vital Signs (Past 24 Hours) Last Vital Signs Temp 36.4 C L 08/27/19 07:09 Pulse 66 11/06/18 07:10 Resp 16 11/06/18 07:09 BP 107/70 11/06/18 07:10 Pulse Ox 99 11/05/18 03:15 Results & Data Current Inpatient Medications Current Inpatient Medications: Current Inpatient Medications Acetaminophen (Tylenol) 1,000 mg PO Q6H PRN PRN Reason: pain Stop: 12/03/18 18:19 Last Admin: 11/05/18 13:17 Dose: 1,000 mg Documented by: Al Hydrox/Mg Hydrox/Simethicone (Maalox) 30 ml PO Q4H PRN PRN Reason: GI Upset Stop: 12/03/18 18:13 Atorvastatin Calcium (Lipitor) 20 mg PO QAM [facility] Stop: 12/04/18 08:59 Last Admin: 11/06/18 07:05 Dose: 20 mg Documented by: Bismuth Subsalicylate (Kaopectate) 15 ml PO PRN PRN PRN Reason: Loose Stool Stop: 12/03/18 18:13 Diphenhydramine HCl (Benadryl Syrup) 12.5 mg PO BID [facility] Stop: 12/06/18 08:59 Last Admin: 11/06/18 07:04 Dose: 12.5 mg Documented by: Haloperidol (Haldol) 2.5 mg PO [id number] [facility] Stop: 12/04/18 06:59 Last Admin: 11/06/18 06:48 Dose: 2.5 mg Documented by: Haloperidol (Haldol) 2.5 mg PO Q4H PRN PRN Reason: agitation/anxiety Stop: 12/03/18 18:25 Last Admin: 11/04/18 12:32 Dose: 2.5 mg Documented by: Hydroxyzine HCl (Vistaril) 50 mg PO HSZ PRN PRN Reason: Insomnia Stop: 12/03/18 18:13 Last Admin: 11/04/18 00:26 Dose: 50 mg Documented by: Hydroxyzine HCl (Vistaril) 25 mg PO Q4H PRN PRN Reason: Anxiety Stop: 12/03/18 18:13 Last Admin: 11/04/18 09:31 Dose: 25 mg Documented by: Lamotrigine (Lamictal) 75 mg PO QAM [facility] Stop: 12/06/18 08:59 Last Admin: 11/06/18 07:05 Dose: 75 mg Documented by: [place] Carbonate (Etna Carbonate) 300 mg PO BID [facility] Stop: 12/03/18 20:59 Last Admin: 11/06/18 07:05 Dose: 300 mg Documented by: Lorazepam (Ativan) 1 mg PO Q6H PRN PRN Reason: Anxiety Stop: 12/04/18 13:18 Last Admin: 11/05/18 03:08 Dose: 1 mg Documented by: Lorazepam (Ativan) 1 mg PO TID [facility] Stop: 12/05/18 13:59 Last Admin: 11/06/18 07:03 Dose: 1 mg Documented by: Magnesium Hydroxide (Milk Of Magnesia) 30 ml PO DAILY PRN PRN Reason: Heartburn Stop: 12/03/18 18:13 Mirtazapine (Remeron) 15 mg PO [facility] Stop: 12/03/18 20:59 Last Admin: 11/05/18 20:56 Dose: 15 mg Documented by: Miscellaneous (Remove Nicoderm Patch) 1 ea N/A [facility] Stop: 12/04/18 08:58 Last Admin: 11/05/18 22:55 Dose: Not Given Documented by: Multivitamins (Multivitamin Tab) 1 tab PO QAM [facility] Stop: 12/04/18 08:59 Last Admin: 11/06/18 07:06 Dose: 1 tab Documented by: Nicotine (Nicoderm Cq) 21 mg TD QAM [facility] Stop: 12/03/18 19:59 Last Admin: 11/06/18 07:06 Dose: 21 mg Documented by: Ranitidine HCl (Zantac) 300 mg PO BID [facility] Stop: 12/03/18 20:59 Last Admin: 11/06/18 07:06 Dose: 300 mg Documented by: Sodium Chloride ([place] Nasal) 1 - 2 sprays NA PRN PRN PRN Reason: Nasal Dryness/Congestion Stop: 12/03/18 18:13 Tolterodine Tartrate (Detrol) 2 mg PO BID [facility] Stop: 12/03/18 20:59 Last Admin: 11/06/18 07:04 Dose: 2 mg Documented by: Mental Health & Subst Abuse Tx Psychiatrist Name of Psychiatrist: [facility] Dr. Borden Psychiatrist's Psychiatric Appointment Comment: [address], [address], [place] Therapist [facility] Appointment Comment: [address], [address], [place] Apparel Sales Leader Name of Apparel Sales Leader: [employer] [facility] [employer] [facility] [place] Phone Number for Apparel Sales Leader: [phone] Post Discharge Appointments Primary Care Physician Name Of Family Doctor: [facility] - Dr. Yovany Davis Primary Care Date of Appointment with PCP: 11/15/18 Time of Appointment with PCP: 3:30 p.m. Provider Appointment Comment: [address], [address], [place], [place] Contact Information Discharge Discharge Address: [address] [place] [address] CPT Code CPT Code 78735 (1) Bipolar disorder Active/Remission status: currently active Current bipolar episode type: depressed Current episode severity: severe Psychotic features: with psychotic features Qualified Code(s): F31.5 - Bipolar disorder, current episode depressed, severe, with psychotic features (2) Chronic pain Chronic pain type: other chronic pain Qualified Code(s): G89.29 - Other chronic pain
[2018-11-06] MEDS: ACETAMINOPHEN 500 MG TAB PO PRN ×2 (10:25→18:01)
[2018-11-06] MEDS: MIRTAZAPINE TAB 15 MG TAB PO SCH (20:32)
[2018-11-07] MEDS: HALOPERIDOL 5 MG TAB PO SCH ×2 (06:43→14:02)
[2018-11-07] MEDS: TOLTERODINE TARTRATE 2 MG TAB PO SCH (07:17)
[2018-11-07] MEDS: diphenhydrAMINE HCl 12.5 MG/5 ML UDC PO SCH ×3 (07:17→20:32)
[2018-11-07] MEDS: lamoTRIgine 25 MG TAB PO SCH (07:17)
[2018-11-07] MEDS: ATORVASTATIN 20 MG TAB PO SCH (07:18)
[2018-11-07] MEDS: MULTIVITAMIN TAB PO SCH (07:18)
[2018-11-07] MEDS: NICOTINE 21 MG/24 HR TDSY TD SCH (07:18)
[2018-11-07] MEDS: LITHIUM CARBONATE 300 MG TAB PO SCH ×2 (07:18→20:32)
[2018-11-07] MEDS: LORazepam 1 MG TAB PO SCH ×3 (07:21→20:33)
--- NOTE | 2018-11-07 09:28 | Psychiatric Progress Note ---
Date of Service November 07, 2018 Impression / Recommendations Impression 58-year-old female admitted voluntarily for inpatient psychiatric treatment, re- admitted 3 days after requesting discharge from our facility. At time of discharge on 10/31/18, the patient had demonstrated several days of stability of mood and anxiety level. She was attending to ADLs independently on the unit and eating regularly. We had recommended patient remain on the unit an additional day to ensure stability prior to discharge. Pt was not perceived to be at acute risk of harm to self at that time, and she continued to request discharge despite recommendations due to having transportation available only on the day of discharge. At that time, patient had verbalized an understanding of discharge plans and utilization of her coping strategies. Pt had presented to the ED 4 times since her admission due to reports of "medication side effects" and "anxiety." On her 5th presentation, the patient verbalized realization that she was unable to properly care for herself at home, she was accepted volunt arily due to failed outpatient treatment attempts and significant anxiety. Pt was placed back on a standing dose of lorazepam 1 mg 3 times a day, as HS morphine has now been discontinued. Lamotrigine was titrated to 75mg daily. Pt was provided with diphenhydramine to target EPS as well as anxiety, and amantadine was discontinued. Pt continues to utilize Detrol for incontinence, though we plan to explore availability of outpatient supports to [employer] at a retail pharmacy, as patient had responded well to this non- formulary medication previously. (1) Anxiety: 11/04 - Continue home medication regimen - Lorazepam 1mg prn as discussed above - Hydroxyzine available for acute anxiety prn - Encourage ongoing development of healthy and effective coping strategies - Explore options that allow the patient to maintain stability on an outpatient basis 11/05/18 -Patient has positive cogwheel rigidity within the context of administration of haloperidol. The patient has a past history of extraparametal side effects and it appears that at least some of the patient's anxiety is associated with no side effects. -She is responded favorably today to a stat dose of diphenhydramine 25 mg IM, and we will order a standing dose of diphenhydramine 12.5 mg twice a day for extraparametal side effects as well as for anxiety. -We have been reluctant to discharge the patient on a standing dose of lorazepam at discharge during her most recent previous admission because of the history of using opioid-based pain medications for back pain on an ongoing basis. During the last admission, the patient told us that 1 of her goals was to discontinue pain medications because she feels that they may occur "dopey" and prevent her from feeling motivated to do much of anything. She reports that she has not taken any opioids since discharge and intends to not use any further medications and this drug classification. Also, the patient clearly had a very favorable response to relatively low doses of lorazepam during the last day, including as a treatment for severe agitation and for catatonia. Accordingly, the plan is to institute Ativan by mouth 1 mg 3 times a day as a standing dose, plus as needed additional medications for anxiety. The patient has been counseled regarding addiction potential, the increased risk for accidents and falls, and the potential that it can worsen depression and impaired mental alertness. The patient has indicated understanding. 11/05 - Continue medication regimen as above, pt reports significant improvement in feelings of restlessness, mild tremor is still observed in hands specifically when unsupported. Shifting of weight between her legs when standing is far less noticeable and patient is appearing calmer overall. Will continue to assess for cogwheeling, mild evidence of this on exam this morning - however, patient had just received her AM medications to include oral diphenhydramine moments before our encounter. AIMS completed this morning - pt scoring a 1 for what may be mild athetosis in fingers during thumb tap, which may also be an extreme normal finding - increased rigidity in fingers and hands does appear to be improved, and this may be related to another cause as well (arthritic changes?) As monitoring of involuntary movements continue, we can determine if TID dosing of diphenhydramine may be beneficial, but will observe for now. - As anxiety is significantly improved, she is less restless, and less likely to be disruptive to a roommate. We will discontinue her medically necessary private room at this time. 11/06 - Titrating diphenhydramine to 12.5mg TID, unclear if tremor or related to anxiety, ongoing EPS, or other physiological etiology - but will continue to observe for improvement - Continue other medications as prescribed above (2) Bipolar disorder: 11/04 - Continue current medication regimen of haloperidol 2.5/2.5/5mg; lamotrigine 50mg qAM; mirtazapine 30mg qHS; lithium 300mg BID; and amantadine 100mg TID - Will having haloperidol 2.5mg dosing available as prn - As patient's condition worsened and was not responding favorably to haloperidol, lorazepam 1mg prn dosing was ordered, it remains the plan that patient is not to be discharged on lorazepam unless going to a supervised setting - Admitted to a locked inpatient behavioral health unit, on q15 minute safety checks - Encourage participation in group and recreational therapies - Suggest involvement of outpatient supports in safety planning - Confirm aftercare arrangements made during previous admission 11/05 -The patient's main complaint currently is anxiety and panic. She also endorses feelings of depression, but within the context of anxious distress. She does not present with symptoms of sarthak or hypomania present. -The plan today is to increase her dose of lamotrigine to a dose of 75 mg a day, and we will continue to monitor for the development of a rash and other side effects associated with lamotrigine. 11/06 - Continue current medication regimen as above (3) Chronic pain: 11/04 - Was previously discharged on morphine 15mg qHS with high-dose Tylenol available prn for breakthrough pain - Continue this regimen for now, though it seems patient had not been utilizing her morphine as an outpatient - Ensure communication with patient's PCP, prior discussion led to decision for pain management referral 11/06 - We had learned that the patient had not been utilizing her morphine at home - and upon further discussion, patient reported decently managed pain without morphine at HS - Given patient's misuse of the medication previous (not taking consistently, diverting, etc.) as well as her reports of adequate pain management on high-dose Tylenol, will plan to discontinue at this time to reduce risk of medication interaction with benzodiazepine and reduce potential for misuse as an outpatient. This was discussed with the patient who is in agreement with the plan - Will communicate with patient's PCP regarding this plan, requesting it not be prescribed again on discharge and that any available refills be canceled Inventory Assets Strengths: established providers, voluntary admission Needs: Adequate support and coping strategies to maintain stability on an outpatient basis Risk Factors Assessment Male: No : Yes Do You Have Access To A Gun?: No Health Problems: Yes Mental Health Diagnoses: Yes Substance Use Disorders: No Previous Attempt: No Family History of Suicide: No Previous Psychiatric Hospitalization: Yes Hopelessness: Yes Smoker: Yes Protective Factors Assessment Bahai Beliefs: Yes : No Responsible for Young Children: No Employed: No Good Rapport with Provider: Yes Interval History Identifying Information ALINA STONE is a 58-year-old F who currently lives in [place], [place] and was discharged from the hospital to live independently. Pt was admitted to our unit from 10/06/18 - 10/31/18. Despite demonstrating stability for several days prior to discharge, patient was unable to adequately care for herself in the outpatient setting, as she has presented to the ED 5 times since her discharge. Pt has a history of bipolar disorder and anxiety, and was admitted on 11/03/18 18:25 on a 201 voluntary commitment for worsening anxiety interfering with daily activities and inability to care for self in the outpatient setting, as evidenced by her multiple ED presentations. Chief Complaint "Pretty good for the most part. I still have some concerns." Review of Systems Notes Constitutional: denied Cardiovascular: denied Respiratory: denied Gastrointestinal: denied Neurological: Reports tingling in her feet, ongoing tremor of hands Psychiatric: [denies symptoms other than stated above] Total of at least 10 systems reviewed, pertinent positives as above and in HPI. Sleep Information Total Hours of Sleep: 7.75 Meal Information Percent Meal Consumed - Breakfast: 100 Percent Meal Consumed - Lunch: 75 Percent Meal Consumed - Dinner: 100 Subjective Subjective Patient was seen & assessed and interval progress reviewed with treatment team. Staff reports patient has been showing consistent improvement. Last evening she rated her mood a 7/10 and "content". Patient's briefcase sewer is to meet with her today to discuss home health options. Patient did report numbness in her feet. Patient was seen today to assess progress since admission. Patient states that she is feeling "pretty good for the most part." She does express some concerns primarily the "tingling in my feet and my shaking hands." We first discussed the tingling in patient's feet, which she states is constant, unchanged with medication adjustments we have made on the unit. Given patient's history of rather severe scoliosis, chronic back pain, and the presentation of symptoms, we discussed that the tingling in her feet is likely more of a neurological concern as opposed to medication reaction. Patient was understanding of the explanation given, and was encouraged to discuss further during her pain management and PCP follow-ups after discharge. The "shaking hands" have significantly improved since the patient's admission, by this provider's observation. Patient does have a mild persistent tremor, which she states improves with goal directed activity of her hands. She denies restlessness to the degree she had on presentation, but is agreeable to trialing an additional dose of diphenhydramine increasing her to 12.5 mg 3 times daily, with ongoing observation. Patient denies SI and onset of new psychiatric concerns. Physical Exam Psychiatric Orientation: alert, oriented x 3 and cooperative Apperance: appropriately dressed (Casually, in a sweater and sweatpants) and appropriately groomed (Recently showered); + did not appear stated age (Appearing older than stated age) Eye Contact: good eye contact Motor Behavior: steady gait and station and + tremor (Most predominate and hands bilaterally, improved from admission) Speech: normal rate/rhythm/volume of speech Affect: + anxious affect (Though significantly improved) and + constricted affect (Affect somewhat blunted, however timidly attempts appropriate smiling ) Mood: + anxious mood ("Pretty good for the most part" and "still a little anxious I guess") Thought Process: goal directed thought process and clear/coherent thought process Thought Content: reality based without delusions; no hopelessness and no worthlessness Suicidal Thoughts: denies suicidal thoughts and denies suicidal intent Hallucinations: no auditory hallucinations and no visual hallucinations Cognition: attention grossly intact and language grossly intact Estimated Intelligence: consistent with education level Insight: + limited insight (Though improving over the course of admission) Judgement: + fair judgement Vital Signs (Past 24 Hours) Last Vital Signs Temp 36.4 C L 11/07/18 06:59 Pulse 70 11/07/18 07:00 Resp 16 11/07/18 06:59 BP 113/75 11/07/18 07:00 Pulse Ox 99 11/05/18 03:15 Results & Data Current Inpatient Medications Current Inpatient Medications: Current Inpatient Medications Acetaminophen (Tylenol) 1,000 mg PO Q6H PRN PRN Reason: pain Stop: 12/03/18 18:19 Last Admin: 11/06/18 18:01 Dose: 1,000 mg Documented by: Al Hydrox/Mg Hydrox/Simethicone (Maalox) 30 ml PO Q4H PRN PRN Reason: GI Upset Stop: 12/03/18 18:13 Atorvastatin Calcium (Lipitor) 20 mg PO QAM [facility] Stop: 12/04/18 08:59 Last Admin: 11/07/18 07:18 Dose: 20 mg Documented by: Bismuth Subsalicylate (Kaopectate) 15 ml PO PRN PRN PRN Reason: Loose Stool Stop: 12/03/18 18:13 Diphenhydramine HCl (Benadryl Syrup) 12.5 mg PO BID [facility] Stop: 12/06/18 08:59 Last Admin: 11/07/18 07:17 Dose: 12.5 mg Documented by: Haloperidol (Haldol) 2.5 mg PO [id number] [facility] Stop: 12/04/18 06:59 Last Admin: 11/07/18 06:43 Dose: 2.5 mg Documented by: Haloperidol (Haldol) 2.5 mg PO Q4H PRN PRN Reason: agitation/anxiety Stop: 12/03/18 18:25 Last Admin: 11/04/18 12:32 Dose: 2.5 mg Documented by: Hydroxyzine HCl (Vistaril) 50 mg PO HSZ PRN PRN Reason: Insomnia Stop: 12/03/18 18:13 Last Admin: 11/04/18 00:26 Dose: 50 mg Documented by: Hydroxyzine HCl (Vistaril) 25 mg PO Q4H PRN PRN Reason: Anxiety Stop: 12/03/18 18:13 Last Admin: 11/04/18 09:31 Dose: 25 mg Documented by: Lamotrigine (Lamictal) 75 mg PO QAM [facility] Stop: 12/06/18 08:59 Last Admin: 11/07/18 07:17 Dose: 75 mg Documented by: [place] Carbonate ([place] Carbonate) 300 mg PO BID [facility] Stop: 12/03/18 20:59 Last Admin: 11/07/18 07:18 Dose: 300 mg Documented by: Lorazepam (Ativan) 1 mg PO Q6H PRN PRN Reason: Anxiety Stop: 12/04/18 13:18 Last Admin: 11/05/18 03:08 Dose: 1 mg Documented by: Lorazepam (Ativan) 1 mg PO TID [facility] Stop: 12/05/18 13:59 Last Admin: 11/07/18 07:21 Dose: 1 mg Documented by: Magnesium Hydroxide (Milk Of Magnesia) 30 ml PO DAILY PRN PRN Reason: Heartburn Stop: 12/03/18 18:13 Mirtazapine (Remeron) 15 mg PO HS [facility] Stop: 12/03/18 20:59 Last Admin: 11/06/18 20:32 Dose: 15 mg Documented by: Miscellaneous (Remove Nicoderm Patch) 1 ea N/A HS [facility] Stop: 12/04/18 08:58 Last Admin: 11/06/18 20:53 Dose: Not Given Documented by: Multivitamins (Multivitamin Tab) 1 tab PO QAM [facility] Stop: 12/04/18 08:59 Last Admin: 11/07/18 07:18 Dose: 1 tab Documented by: Nicotine (Nicoderm Cq) 21 mg TD QAM [facility] Stop: 12/03/18 19:59 Last Admin: 11/07/18 07:18 Dose: 21 mg Documented by: Ranitidine HCl (Zantac) 300 mg PO BID [facility] Stop: 12/03/18 20:59 Last Admin: 11/07/18 07:18 Dose: 300 mg Documented by: Sodium Chloride ([place] Nasal) 1 - 2 sprays NA PRN PRN PRN Reason: Nasal Dryness/Congestion Stop: 12/03/18 18:13 Tolterodine Tartrate (Detrol) 2 mg PO BID [facility] Stop: 12/03/18 20:59 Last Admin: 11/07/18 07:17 Dose: 2 mg Documented by: Mental Health & Subst Abuse Tx Psychiatrist Name of Psychiatrist: Dr. Manuel Borden at [facility] Date of Appointment with Psychiatrist: 11/20/18 Time of Appointment with Psychiatrist: 10:15 Psychiatric Appointment Comment: [address] [employer], [address] Therapist Name of Therapist: [facility] [place] - Manuel Weiner Therapist's Therapy Appointment Comment: [address] [address] [employer] Name of Nougat Candy Maker Helper: [facility] Phone Number for Nougat Candy Maker Helper: [phone] Post Discharge Appointments Primary Care Physician Name Of Family Doctor: [facility] - Dr. Yovany Davis Primary Care Date of Appointment with PCP: 11/15/18 Time of Appointment with PCP: 3:30 p.m. Provider Appointment Comment: [address], [address], [place], [place] Contact Information Discharge Discharge Address: [address] [place] [address] CPT Code CPT Code 78173 (1) Chronic pain Chronic pain type: other chronic pain Qualified Code(s): G89.29 - Other chronic pain (2) Bipolar disorder Active/Remission status: currently active Current bipolar episode type: depressed Current episode severity: severe Psychotic features: with psychotic features Qualified Code(s): F31.5 - Bipolar disorder, current episode depressed, severe, with psychotic features
[2018-11-07] MEDS ORDERED: DESTROY THIS MEDICATION SCH (11:51)
[2018-11-07] MEDS ORDERED: DESTROY THIS MEDICATION ONE (12:28)
[2018-11-07] MEDS: VESICARE 5 MG PO SCH (14:00)
[2018-11-07] MEDS ORDERED: VESICARE: ORDER AWAITING ACTION SCH (16:00)
[2018-11-07] MEDS: MIRTAZAPINE TAB 15 MG TAB PO SCH (20:33)
[2018-11-08] MEDS: HALOPERIDOL 5 MG TAB PO SCH ×2 (06:58→14:20)
[2018-11-08] MEDS: LORazepam 1 MG TAB PO SCH ×3 (07:59→20:36)
[2018-11-08] MEDS: diphenhydrAMINE HCl 12.5 MG/5 ML UDC PO SCH ×3 (07:59→20:34)
[2018-11-08] MEDS: lamoTRIgine 25 MG TAB PO SCH (07:59)
[2018-11-08] MEDS: ATORVASTATIN 20 MG TAB PO SCH (07:59)
[2018-11-08] MEDS: VESICARE 5 MG PO SCH (08:00)
[2018-11-08] MEDS: LITHIUM CARBONATE 300 MG TAB PO SCH ×2 (08:00→20:34)
[2018-11-08] MEDS: MULTIVITAMIN TAB PO SCH (08:00)
[2018-11-08] MEDS: NICOTINE 21 MG/24 HR TDSY TD SCH (08:13)
--- NOTE | 2018-11-08 09:03 | Psychiatric Progress Note ---
Date of Service November 08, 2018 Impression / Recommendations Impression 58-year-old female admitted voluntarily for inpatient psychiatric treatment, re- admitted 3 days after requesting discharge from our facility. At time of discharge on 10/31/18, the patient had demonstrated several days of stability of mood and anxiety level. She was attending to ADLs independently on the unit and eating regularly. We had recommended patient remain on the unit an additional day to ensure stability prior to discharge. Pt was not perceived to be at acute risk of harm to self at that time, and she continued to request discharge despite recommendations due to having transportation available only on the day of discharge. At that time, patient had verbalized an understanding of discharge plans and utilization of her coping strategies. Pt had presented to the ED 4 times since her admission due to reports of "medication side effects" and "anxiety." On her 5th presentation, the patient verbalized realization that she was unable to properly care for herself at home, she was accepted volunt arily due to failed outpatient treatment attempts and significant anxiety. Pt was placed back on a standing dose of lorazepam 1 mg 3 times a day, as HS morphine has now been discontinued. Lamotrigine was titrated to 75mg daily. Pt was provided with diphenhydramine to target EPS as well as anxiety, and amantadine was discontinued. Pt continues to utilize Detrol for incontinence, though we plan to explore availability of outpatient supports to pickle maker Vesicare at a retail pharmacy, as patient had responded well to this non- formulary medication previously. (1) Anxiety: 11/04 - Continue home medication regimen - Lorazepam 1mg prn as discussed above - Hydroxyzine available for acute anxiety prn - Encourage ongoing development of healthy and effective coping strategies - Explore options that allow the patient to maintain stability on an outpatient basis 11/05/18 -Patient has positive cogwheel rigidity within the context of administration of haloperidol. The patient has a past history of extraparametal side effects and it appears that at least some of the patient's anxiety is associated with no side effects. -She is responded favorably today to a stat dose of diphenhydramine 25 mg IM, and we will order a standing dose of diphenhydramine 12.5 mg twice a day for extraparametal side effects as well as for anxiety. -We have been reluctant to discharge the patient on a standing dose of lorazepam at discharge during her most recent previous admission because of the history of using opioid-based pain medications for back pain on an ongoing basis. During the last admission, the patient told us that 1 of her goals was to discontinue pain medications because she feels that they may occur "dopey" and prevent her from feeling motivated to do much of anything. She reports that she has not taken any opioids since discharge and intends to not use any further medications and this drug classification. Also, the patient clearly had a very favorable response to relatively low doses of lorazepam during the last day, including as a treatment for severe agitation and for catatonia. Accordingly, the plan is to institute Ativan by mouth 1 mg 3 times a day as a standing dose, plus as needed additional medications for anxiety. The patient has been counseled regarding addiction potential, the increased risk for accidents and falls, and the potential that it can worsen depression and impaired mental alertness. The patient has indicated understanding. 11/05 - Continue medication regimen as above, pt reports significant improvement in feelings of restlessness, mild tremor is still observed in hands specifically when unsupported. Shifting of weight between her legs when standing is far less noticeable and patient is appearing calmer overall. Will continue to assess for cogwheeling, mild evidence of this on exam this morning - however, patient had just received her AM medications to include oral diphenhydramine moments before our encounter. AIMS completed this morning - pt scoring a 1 for what may be mild athetosis in fingers during thumb tap, which may also be an extreme normal finding - increased rigidity in fingers and hands does appear to be improved, and this may be related to another cause as well (arthritic changes?) As monitoring of involuntary movements continue, we can determine if TID dosing of diphenhydramine may be beneficial, but will observe for now. - As anxiety is significantly improved, she is less restless, and less likely to be disruptive to a roommate. We will discontinue her medically necessary private room at this time. 11/06 - Titrating diphenhydramine to 12.5mg TID, unclear if tremor or related to anxiety, ongoing EPS, or other physiological etiology - but will continue to observe for improvement - Continue other medications as prescribed above 11/08 - Continue current medication regimen; offer reassurance regarding discharge planning - Continue to encourage participation in group and recreational therapies (2) Bipolar disorder: 11/04 - Continue current medication regimen of haloperidol 2.5/2.5/5mg; lamotrigine 50mg qAM; mirtazapine 30mg qHS; lithium 300mg BID; and amantadine 100mg TID - Will having haloperidol 2.5mg dosing available as prn - As patient's condition worsened and was not responding favorably to halo peridol, lorazepam 1mg prn dosing was ordered, it remains the plan that patient is not to be discharged on lorazepam unless going to a supervised setting - Admitted to a locked inpatient behavioral health unit, on q15 minute safety checks - Encourage participation in group and recreational therapies - Suggest involvement of outpatient supports in safety planning - Confirm aftercare arrangements made during previous admission 11/05 -The patient's main complaint currently is anxiety and panic. She also endorses feelings of depression, but within the context of anxious distress. She does not present with symptoms of sarthak or hypomania present. -The plan today is to increase her dose of lamotrigine to a dose of 75 mg a day, and we will continue to monitor for the development of a rash and other side effects associated with lamotrigine. 11/06 - 11/08 - Continue current medication regimen as above (3) Chronic pain: 11/04 - Was previously discharged on morphine 15mg qHS with high-dose Tylenol available prn for breakthrough pain - Continue this regimen for now, though it seems patient had not been utilizing her morphine as an outpatient - Ensure communication with patient's PCP, prior discussion led to decision for pain management referral 11/06 - We had learned that the patient had not been utilizing her morphine at home - and upon further discussion, patient reported decently managed pain without morphine at HS - Given patient's misuse of the medication previous (not taking consistently, diverting, etc.) as well as her reports of adequate pain management on high-dose Tylenol, will plan to discontinue at this time to reduce risk of medication interaction with benzodiazepine and reduce potential for misuse as an outpat ient. This was discussed with the patient who is in agreement with the plan - Will communicate with patient's PCP regarding this plan, requesting it not be prescribed again on discharge and that any available refills be canceled (4) Incontinence of urine: 11/08 - Detrol had been prescribed from previous admission, as there were limited options available on formulary to address patient's frequent urinary incontinence. Medication was not found to be overly beneficial - Vesicare, which patient had been prescribed previously for urinary incontinence, was brought in by her son and has been provided to her - Patient reports dramatic improvement in condition since switching medications Inventory Assets Strengths: established providers, voluntary admission Needs: Adequate support and coping strategies to maintain stability on an outpatient basis Risk Factors Assessment Male: No : Yes Do You Have Access To A Gun?: No Health Problems: Yes Mental Health Diagnoses: Yes Substance Use Disorders: No Previous Attempt: No Family History of Suicide: No Previous Psychiatric Hospitalization: Yes Hopelessness: Yes Smoker: Yes Protective Factors Assessment Voodoo Beliefs: Yes : No Responsible for Young Children: No Employed: No Good Rapport with Provider: Yes Interval History Identifying Information ALINA STONE is a 58-year-old F who currently lives in [place], [place] and was discharged from the hospital to live independently. Pt was admitted to our unit from 10/06/18 - 10/31/18. Despite demonstrating stability for several days prior to discharge, patient was unable to adequately care for herself in the outpatient setting, as she has presented to the ED 5 times since her discharge. Pt has a history of bipolar disorder and anxiety, and was admitted on 11/03/18 18:25 on a 201 voluntary commitment for worsening anxiety interfering with daily activities and inability to care for self in the outpatient setting, as evidenced by her multiple ED presentations. Chief Complaint "I am doing all right. A little bit overwhelmed at the moment." Review of Systems Notes Constitutional: denied Cardiovascular: denied Respiratory: denied Gastrointestinal: denied Neurological: reports tingling and numbness in her feet Psychiatric: denies symptoms other than stated above Total of at least 10 systems reviewed, pertinent positives as above and in HPI. Sleep Information Total Hours of Sleep: 7.75 Meal Information Percent Meal Consumed - Breakfast: 100 Percent Meal Consumed - Lunch: 75 Percent Meal Consumed - Dinner: 95 Subjective Subjective Patient was seen & assessed and interval progress reviewed with nursing and social work. Staff reports the patient received a visit from her case advocate and son yesterday, to discuss discharge and aftercare planning. It was reported that the son is concerned about patient's discharge, especially over a long weekend where supports will be limited. It was passed along with the patient's and anxiety increased after the meeting, due to feeling overwhelmed with the topics discussed. Patient was seen today to assess progress since admission. Patient sought out a conversation with this provider very early in the morning, requesting to talk. Patient states that she is "doing all right, a little overwhelmed at the moment." The patient states "my son does not think I am ready to go home." The patient admits that her meeting yesterday was overwhelming, and states that her son had mentioned he was concerned that she was not participating in the meeting. Patient states that she was anxious about the topics, and therefore did not say much. Patient reports ongoing financial concerns, as she feels she will not be able to afford the additional support and continue to buy her basic necessities. She was also concerned about the idea of assisted living, and likely need to sell her home if this was to be pursued. Patient was reassured that our first plan is to discharge her back home, with increased outpatient supports to allow her to thrive in that setting. This provider attempted to explain that there are multiple plans, but that our goal is to get her home and functioning well. Patient states "I think my son planted a seed of doubt, because I was feeling good yesterday." This provider attempted to reassure the patient, by reassuring her that she did appear calm and happy yesterday until the meeting. This provider reminded the patient of her outpatient services she will receive on discharge, and that she will be able to utilize them regularly to ensure she is doing well. This provider also attempted to talk through a safety plan that did not involve immediately calling 911 during periods of intense anxiety. Patient was able to verbalize several coping strategies she could utilize before calling 911; however, patient will require ongoing encouragement to utilize this plan. Patient denies other acute needs or concerns at this time. Physical Exam Psychiatric Orientation: alert, oriented x 3 and cooperative Apperance: appropriately dressed, appropriately groomed and appeared stated age Eye Contact: good eye contact (Staring, more wide-eyed today) Motor Behavior: steady gait and station and no abnormal motor movements Speech: normal rate/rhythm/volume of speech Affect: + anxious affect and + blunted affect Mood: + anxious mood ("A little overwhelmed at the moment") Thought Process: goal directed thought process, clear/coherent thought process and + concrete thought process Thought Content: reality based without delusions and + hopelessness Suicidal Thoughts: denies suicidal thoughts and denies suicidal intent Hallucinations: no auditory hallucinations and no visual hallucinations Cognition: attention grossly intact and language grossly intact Estimated Intelligence: consistent with education level Insight: + limited insight (Though improving over the course of her admission) Judgement: + fair judgement Vital Signs (Past 24 Hours) Last Vital Signs Temp 36.5 C 11/08/18 06:00 Pulse 76 11/08/18 06:50 Resp 15 11/08/18 06:00 BP 128/84 11/08/18 06:50 Pulse Ox 99 11/05/18 03:15 Results & Data Current Inpatient Medications Current Inpatient Medications: Current Inpatient Medications Acetaminophen (Tylenol) 1,000 mg PO Q6H PRN PRN Reason: pain Stop: 12/03/18 18:19 Last Admin: 11/06/18 18:01 Dose: 1,000 mg Documented by: Al Hydrox/Mg Hydrox/Simethicone (Maalox) 30 ml PO Q4H PRN PRN Reason: GI Upset Stop: 12/03/18 18:13 Atorvastatin Calcium (Lipitor) 20 mg PO QAM [facility] Stop: 12/04/18 08:59 Last Admin: 11/08/18 07:59 Dose: 20 mg Documented by: Bismuth Subsalicylate (Kaopectate) 15 ml PO PRN PRN PRN Reason: Loose Stool Stop: 12/03/18 18:13 Diphenhydramine HCl (Benadryl Syrup) 12.5 mg PO TID [facility] Stop: 12/07/18 13:59 Last Admin: 11/08/18 07:59 Dose: 12.5 mg Documented by: Haloperidol (Haldol) 2.5 mg PO [id number] [facility] Stop: 12/04/18 06:59 Last Admin: 11/08/18 06:58 Dose: 2.5 mg Documented by: Haloperidol (Haldol) 2.5 mg PO Q4H PRN PRN Reason: agitation/anxiety Stop: 12/03/18 18:25 Last Admin: 11/04/18 12:32 Dose: 2.5 mg Documented by: Hydroxyzine HCl (Vistaril) 50 mg PO HSZ PRN PRN Reason: Insomnia Stop: 12/03/18 18:13 Last Admin: 11/04/18 00:26 Dose: 50 mg Documented by: Hydroxyzine HCl (Vistaril) 25 mg PO Q4H PRN PRN Reason: Anxiety Stop: 12/03/18 18:13 Last Admin: 11/04/18 09:31 Dose: 25 mg Documented by: Lamotrigine (Lamictal) 75 mg PO QAM [facility] Stop: 12/06/18 08:59 Last Admin: 11/08/18 07:59 Dose: 75 mg Documented by: Mahtomedi Carbonate (Mahtomedi Carbonate) 300 mg PO BID [facility] Stop: 12/03/18 20:59 Last Admin: 11/08/18 08:00 Dose: 300 mg Documented by: Lorazepam (Ativan) 1 mg PO Q6H PRN PRN Reason: Anxiety Stop: 12/04/18 13:18 Last Admin: 11/05/18 03:08 Dose: 1 mg Documented by: Lorazepam (Ativan) 1 mg PO TID [facility] Stop: 12/05/18 13:59 Last Admin: 11/08/18 07:59 Dose: 1 mg Documented by: Magnesium Hydroxide (Milk Of Magnesia) 30 ml PO DAILY PRN PRN Reason: Heartburn Stop: 12/03/18 18:13 Mirtazapine (Remeron) 15 mg PO [facility] Stop: 12/03/18 20:59 Last Admin: 11/07/18 20:33 Dose: 15 mg Documented by: Miscellaneous (Remove Nicoderm Patch) 1 ea N/A [facility] Stop: 12/04/18 08:58 Last Admin: 11/07/18 20:34 Dose: 1 ea Documented by: Multivitamins (Multivitamin Tab) 1 tab [facility] [place] Stop: 12/04/18 08:59 Last Admin: 11/08/18 08:00 Dose: 1 tab Documented by: Nicotine (Nicoderm Cq) 21 mg TD [facility] Stop: 12/03/18 19:59 Last Admin: 11/08/18 08:13 Dose: 21 mg Documented by: Vesicare 5mg: Non- Formulary Patient's Own Med 2 ea PO DAILY [facility] Stop: 12/07/18 12:59 Last Admin: 11/08/18 08:00 Dose: 2 ea Documented by: Ranitidine HCl (Zantac) 300 mg PO BID [facility] Stop: 12/03/18 20:59 Last Admin: 11/08/18 08:00 Dose: 300 mg Documented by: Sodium Chloride ([place] Nasal) 1 - 2 sprays NA PRN PRN PRN Reason: Nasal Dryness/Congestion Stop: 12/03/18 18:13 Mental Health & Subst Abuse Tx Psychiatrist Name of Psychiatrist: Dr. Manuel Borden at [facility] Psychiatrist's Date of Appointment with Psychiatrist: 11/20/18 Time of Appointment with Psychiatrist: 10:15 Psychiatric Appointment Comment: [address], [facility] [address], [place] Therapist Name of Therapist: [facility] - Manuel Weiner Therapist's Therapy Appointment Comment: [address], [facility] [address], [place] Automobile Relocation Engineer Name of Automobile Relocation Engineer: [facility] Phone Number for Automobile Relocation Engineer: [phone] Date of Appointment with Automobile Relocation Engineer: 11/13/18 Time of Appointment with Automobile Relocation Engineer: 1pm Case Management Appointment Comment: Will meet at your house. Post Discharge Appointments Primary Care Physician Name Of Family Doctor: [facility] - Dr. Yovany Davis Primary Care Date of Appointment with PCP: 11/15/18 Time of Appointment with PCP: 3:30 p.m. Provider Appointment Comment: [address], [address], [place], [place] Contact Information Discharge Discharge [address]: [address] [place] [address] CPT Code CPT Code 09059 (1) Chronic pain Chronic pain type: other chronic pain Qualified Code(s): G89.29 - Other chronic pain (2) Bipolar disorder Active/Remission status: currently active Current bipolar episode type: depressed Current episode severity: severe Psychotic features: with psychotic features Qualified Code(s): F31.5 - Bipolar disorder, current episode depressed, severe, with psychotic features
[2018-11-08] MEDS: MIRTAZAPINE TAB 15 MG TAB PO SCH (20:34)
[2018-11-09] MEDS: HALOPERIDOL 5 MG TAB PO SCH ×2 (07:04→13:21)
[2018-11-09] MEDS: lamoTRIgine 25 MG TAB PO SCH (07:47)
[2018-11-09] MEDS: LORazepam 1 MG TAB PO SCH ×2 (07:47→13:19)
[2018-11-09] MEDS: diphenhydrAMINE HCl 12.5 MG/5 ML UDC PO SCH ×2 (07:47→13:20)
[2018-11-09] MEDS: ATORVASTATIN 20 MG TAB PO SCH (07:48)
[2018-11-09] MEDS: LITHIUM CARBONATE 300 MG TAB PO SCH (07:48)
[2018-11-09] MEDS: MULTIVITAMIN TAB PO SCH (07:48)
[2018-11-09] MEDS: VESICARE 5 MG PO SCH (07:49)
[2018-11-09] MEDS: NICOTINE 21 MG/24 HR TDSY TD SCH (08:01)
[2018-11-09] MEDS: ACETAMINOPHEN 500 MG TAB PO PRN (08:49)
[2018-11-09] MEDS ORDERED: DESTROY THIS MEDICATION ONE ×2 (13:55→14:11)
--- NOTE | 2018-11-09 14:04 | Discharge Summary ---
Date of Service November 09, 2018 History of Present Illness Kelley Lopez is a 58-year-old female admitted voluntarily for inpatient psychiatric treatment due to worsening anxiety and inability to adequately care for self in the outpatient setting. Pt was admitted to our unit from 10/08/18 - 10/31/18. She had demonstrated several consistent days of improved mood and manageable anxiety, and was requesting discharge. It became apparent that patient was unable to utilize her supports, as she presented to the ED that night with complaints of anxiety and visual disturbances she attributed to a medication side effect. Pt participated in review of her safety plan in the ED and was able to return home. Altogether, the patient has presented to the ED 5 times since her discharge. She had given conflicting reports - stating she was forgetting appointments and was confused about medication, but also reporting she was able to go grocery shopping and was caring for herself. Pt requested inpatient treatment, as she had reported she was not able to function independently. Pt was reportedly appearing only mildly anxious at the time of admission last evening, but has demonstrated significant worsening overnight. On evaluation today, the patient is very tremulous and states that she does not feel she is able to speak. Pt states, "It's too late." Pt states that she has been extremely anxious and has been "shaking for days." Pt states that she has not been doing well, and "I need help." Pt was unable at this time to provide significant history regarding specific difficulties over the past 3 days. Pt continued to verbalize reasons she believed she was - "the clouds stopped moving" and "I can't feel my feet." Pt denies suicidality, but reports hopelessness as she believes she is already and will not get better. Physical Exam Psychiatric Orientation: alert and oriented x 3 Apperance: appropriately dressed, appropriately groomed and appeared stated age Eye Contact: + fair eye contact Motor Behavior: + tremor Speech: normal rate/rhythm/volume of speech Affect: + anxious affect (However, she is fairly bright and smiles appropriately a number of times during the discharge interview.) Good mood. I did say 8 out of 10. Still a little anxious, but I can handle it. Thought Process: goal directed thought process and linear/logical thought process Thought Content: reality based without delusions Suicidal Thoughts: denies suicidal thoughts Homicidal Thoughts: denies homicidal thoughts Hallucinations: no auditory hallucinations Cognition: recent memory grossly intact, remote memory grossly intact, attention grossly intact and language grossly intact Estimated Intelligence: average estimated intelligence Insight: + limited insight Judgement: + fair judgement Vital Signs (Past 24 Hours) Last Vital Signs Temp 36.3 C L 11/09/18 12:01 Pulse 74 11/09/18 12:01 Resp 16 11/09/18 12:01 BP 109/71 11/09/18 12:01 Pulse Ox 99 11/09/18 12:01 Principal Diagnosis Bipolar disorder. Psychiatric Data During the course of hospitalization the patient was offered various modalities of psychiatric treatment and education. She participated actively in individual, group, and activity therapies. We also continued her outpatient medications but made several adjustments. Her lamotrigine dose was increased from 50 mg daily to a dose of 75 mg daily. She was reminded of the material risks, including but not limited to Wilks-Dale syndrome, and the patient indicated understanding and appeared to tolerate the increased dose without any difficulty. She had been discharged from her most recent previous day not long after discontinuing lorazepam, and shortly upon returning home she experienced severe anxiety and panic, and in response called for emergency transport back to the hospital. She was treated and released from the emergency room on 4 occasions, and on the fifth occasion within a very short period of time she was admitted. We learned that she had successfully discontinued morphine and was not taking any opioid-based medications. The patient advised that she had been able to manage her pain with Tylenol and although the back pain continues, she tells us that she is eager to not take opioid-based pain medications because she feels that it clouds her thinking and makes her less alert. Within that context, and given her history of very favorable response to lorazepam, we placed the patient on a standing dose of lorazepam and titrated to 1 mg 3 times a day as a standing dose. We also offered the patient as needed lorazepam up to twice a day for breakthrough anxiety. She responded favorably to this inte rvention. Because the patient demonstrated cogwheel rigidity and akathisia, and because we recognize that she was having great difficulty staying still, even though she was taking amantadine at a standard dose, we discontinued amantadine in favor of diphenhydramine 12.5 mg and titrated this dose up to 3 times a day with resolution of the cogwheeling and significant improvement in the patient's restlessness and anxiety. Although she had initially repeated her statement that she thought that she was "" or was "dying" and "a hopeless case," this resolved almost immediately upon addressing her anxious distress, and she became reality based. Her mood brightened and her anxiety improved substantially. She voiced no thoughts of suicide or of self-harm. She also worked on developing improved coping strategies. She is aware that calling 911 is expensive and not the best way to manage anxiety given that she becomes anxious fairly easily. Her coping strategies include calling her son and, when her son is not available, for example when he is at work, she has friends that she can call. She was also taught relaxation techniques and breathing exercises. Although we had considered keeping the patient for another day, the patient told his that she felt more than ready to be discharged and was. Day of Discharge Assessment On the day of discharge, the patient was found to be pleasant, cooperative, and neatly and appropriately groomed and dressed. She was fully cooperative with the discharge examination and participated actively in it. Her mood is described as "good. Much better. 8 out of 10." Her affect was bright, although she continued to show some anxiety. When this was observed, the patient confirmed that she still feels "a little anxious," but finds that the current level is manageable. The patient's thought processes demonstrate tight associations. There is no evidence of any delusional material and the patient's thought content. She also reports that she is not experiencing any perceptual disturbances. She identifies a number of coping strategies that she can use instead of calling 911 and being brought to the emergency room for additional medication. The patient reports that she is not having any suicidal thoughts and has developed a reasonable safety plan for reentry into the community. She also reports that she is having no thoughts of causing physical harm to the person or property of others. The patient's judgment and insight are at least fair, and she is committed to continuing treatment on an outpatient basis. Transition of Care Transition Of Care Record: was reviewed with the patient Advance Directives Advance Directives Information Provided: Yes Advance Directives: No Mental Health Advance Directive: No Advance Directives on File: No Living Will: No Power of Tile Presser: No Advance Directives Reason:: Declines as Mental Health Visit. Risk Factors Assessment History of psychotic illness. Mood swings. History of nihilistic delusions. Some degree of social isolation. Financial difficulties. These risks are mitigated by the fact that the patient does not have a history of intentional self and consistently reports that she is not suicidal, even when she is experiencing a great deal of anxious distress or when she is experiencing psychotic symptoms. Male: No : Yes Do You Have Access To A Gun?: No Health Problems: Yes Mental Health Diagnoses: Yes Substance Use Disorders: No Previous Attempt: No Family History of Suicide: No Previous Psychiatric Hospitalization: Yes Hopelessness: Yes Smoker: Yes Protective Factors Assessment Voodoo Beliefs: Yes : No Responsible for Young Children: No Employed: No Good Rapport with Provider: Yes Tobacco Cessation at Discharge Tobacco Cessation Medication Prescribed at Discharge: Not Applicable/Non-Smoker Total Time Total Time Spent: Greater Than 30 Minutes Total Time Includes: Examination of the patient, Discharge Planning, Medication Reconciliation and Communication with other providers Discharge Data Lab Results 11/03/18 11/03/18 11/03/18 14:33 14:33 14:33 WBC 9.15 RBC 4.51 Hgb 14.9 Hct 42.8 MCV 94.9 MCH 33.0 MCHC 34.8 RDW Std Deviation 44.1 RDW Coeff of Haley 12.8 Plt Count 231 MPV 9.7 Immature Gran % (Auto) 0.1 Neut % (Auto) 72.3 Lymph % (Auto) 20.5 [place] % (Auto) 6.3 Eos % (Auto) 0.4 Baso % (Auto) 0.4 Immature Gran # (Auto) 0.01 Neut # (Auto) 6.60 H Lymph # (Auto) 1.88 [place] # (Auto) 0.58 Eos # (Auto) 0.04 Baso # (Auto) 0.04 Sodium 142 Potassium 3.9 Chloride 109 H Carbon Dioxide 28 Anion Gap 5.0 BUN 17 Creatinine 0.76 Est Cr Clr Drug Dosing 60.5 Est GFR ( Amer) 100.2 Est GFR (Non-Af Amer) 86.5 BUN/Creatinine Ratio 22.0 H Glucose 103 H Calcium 9.3 Total Bilirubin 1.5 H AST 20 ALT 48 Alkaline Phosphatase 76 Troponin I < 0.015 Total Protein 7.3 Albumin 4.0 Globulin 3.3 Albumin/Globulin Ratio 1.2 TSH 1.360 Urine Color Urine Appearance Urine pH Ur Specific [place] Urine Protein Urine Glucose (UA) Urine Ketones Urine Blood Urine Nitrite Urine Bilirubin Urine Urobilinogen Ur Leukocyte Esterase Salicylates < 1.7 L Urine Opiates Screen Ur Methadone, Qual Acetaminophen < 2 L Urine Barbiturates Ur Phencyclidine (PCP) U Amphetamin/Meth Scrn MDMA (Ecstasy) Screen U Benzodiazepines Scrn [place] 0.6 Ur Cocaine Metabolite U Marijuana (THC) Screen Ethyl Alcohol mg/dL Lyme Disease IgG Ab Lyme Disease IgM Ab 11/03/18 11/03/18 11/03/18 14:33 14:35 14:35 WBC RBC Hgb Hct MCV MCH MCHC RDW Std Deviation RDW Coeff of Haley Plt Count MPV Immature Gran % (Auto) Neut % (Auto) Lymph % (Auto) [place] % (Auto) Eos % (Auto) Baso % (Auto) Immature Gran # (Auto) Neut # (Auto) Lymph # (Auto) [place] # (Auto) Eos # (Auto) Baso # (Auto) Sodium Potassium Chloride Carbon Dioxide Anion Gap BUN Creatinine Est Cr Clr Drug Dosing Est GFR ( Amer) Est GFR (Non-Af Amer) BUN/Creatinine Ratio Glucose Calcium Total Bilirubin AST ALT Alkaline Phosphatase Troponin I Cancelled Total Protein Albumin Globulin Albumin/Globulin Ratio TSH Urine Color Urine Appearance Urine pH Ur Specific [place] Urine Protein Urine Glucose (UA) Urine Ketones Urine Blood Urine Nitrite Urine Bilirubin Urine Urobilinogen Ur Leukocyte Esterase Salicylates Urine Opiates Screen Ur Methadone, Qual Acetaminophen Urine Barbiturates Ur Phencyclidine (PCP) U Amphetamin/Meth Scrn MDMA (Ecstasy) Screen U Benzodiazepines Scrn [place] Cancelled Ur Cocaine Metabolite U Marijuana (THC) Screen Ethyl Alcohol mg/dL < 3.0 Lyme Disease IgG Ab Lyme Disease IgM Ab 11/03/18 11/03/18 11/03/18 14:35 Unknown Unknown WBC RBC Hgb Hct MCV MCH MCHC RDW Std Deviation RDW Coeff of Haley Plt Count MPV Immature Gran % (Auto) Neut % (Auto) Lymph % (Auto) [place] % (Auto) Eos % (Auto) Baso % (Auto) Immature Gran # (Auto) Neut # (Auto) Lymph # (Auto) [place] # (Auto) Eos # (Auto) Baso # (Auto) Sodium Potassium Chloride Carbon Dioxide Anion Gap BUN Creatinine Est Cr Clr Drug Dosing Est GFR ( Amer) Est GFR (Non-Af Amer) BUN/Creatinine Ratio Glucose Calcium Total Bilirubin AST ALT Alkaline Phosphatase Troponin I Total Protein Albumin Globulin Albumin/Globulin Ratio TSH Urine Color Yellow Urine Appearance Clear Urine pH 7.0 Ur Specific [place] 1.014 Urine Protein Negative Urine Glucose (UA) Negative Urine Ketones Negative Urine Blood Negative Urine Nitrite Negative Urine Bilirubin Negative Urine Urobilinogen Negative Ur Leukocyte Esterase Negative Salicylates Urine Opiates Screen Neg Ur Methadone, Qual Neg Acetaminophen Urine Barbiturates Neg Ur Phencyclidine (PCP) Neg U Amphetamin/Meth Scrn Neg MDMA (Ecstasy) Screen Neg U Benzodiazepines Scrn Neg [place] Ur Cocaine Metabolite Neg U Marijuana (THC) Screen Neg Ethyl Alcohol mg/dL Lyme Disease IgG Ab Negative Lyme Disease IgM Ab Negative Hospital Course (1) Anxiety: 11/04 - Continue home medication regimen - Lorazepam 1mg prn as discussed above - Hydroxyzine available for acute anxiety prn - Encourage ongoing development of healthy and effective coping strategies - Explore options that allow the patient to maintain stability on an outp atient basis 11/05/18 -Patient has positive cogwheel rigidity within the context of administration of haloperidol. The patient has a past history of extraparametal side effects and it appears that at least some of the patient's anxiety is associated with no side effects. -She is responded favorably today to a stat dose of diphenhydramine 25 mg IM, and we will order a standing dose of diphenhydramine 12.5 mg twice a day for extraparametal side effects as well as for anxiety. -We have been reluctant to discharge the patient on a standing dose of lorazepam at discharge during her most recent previous admission because of the history of using opioid-based pain medications for back pain on an ongoing basis. During the last admission, the patient told us that 1 of her goals was to discontinue pain medications because she feels that they may occur "dopey" and prevent her from feeling motivated to do much of anything. She reports that she has not taken any opioids since discharge and intends to not use any further medications and this drug classification. Also, the patient clearly had a very favorable response to relatively low doses of lorazepam during the last day, including as a treatment for severe agitation and for catatonia. Accordingly, the plan is to institute Ativan by mouth 1 mg 3 times a day as a standing dose, plus as needed additional medications for anxiety. The patient has been counseled regarding addiction potential, the increased risk for accidents and falls, and the potential that it can worsen depression and impaired mental alertness. The patient has indicated understanding. 11/05 - Continue medication regimen as above, pt reports significant improvement in feelings of restlessness, mild tremor is still observed in hands specifically when unsupported. Shifting of weight between her legs when standing is far less noticeable and patient is appearing calmer overall. Will continue to assess for cogwheeling, mild evidence of this on exam this morning - however, patient had just received her AM medications to include oral diphenhydramine moments before our encounter. AIMS completed this morning - pt scoring a 1 for what may be mild athetosis in fingers during thumb tap, which may also be an extreme normal finding - increased rigidity in fingers and hands does appear to be improved, and this may be related to another cause as well (arthritic changes?) As monitoring of involuntary movements continue, we can determine if TID dosing of diphenhydramine may be beneficial, but will observe for now. - As anxiety is significantly improved, she is less restless, and less likely to be disruptive to a roommate. We will discontinue her medically necessary private room at this time. 11/06 - Titrating diphenhydramine to 12.5mg TID, unclear if tremor or related to anxiety, ongoing EPS, or other physiological etiology - but will continue to observe for improvement - Continue other medications as prescribed above 11/08 - Continue current medication regimen; offer reassurance regarding discharge planning - Continue to encourage participation in group and recreational therapies 11/09 -There was sometimes difficult to tell the degree to which the patient's generalized anxiety explain her anxiety, as opposed to akathisia secondary to extrapyramidal side effects from her medications. Presumably, both are in play, and both need to be addressed. -The patient's akathisia responded favorably to diphenhydramine 12.5 mg 3 times a day. This medication also seems to have helped with her generalized anxiety. -The patient has responded favorably to lorazepam 1 mg 3 times a day as a standing dose, and she has also been offered lorazepam 1 mg up to twice a day as needed for breakthrough anxiety. She has been made aware of the risks associated with lorazepam and similar medications. These include, but are not limited to increased risk for falls, increased risk for accidents, increased sedation, worsening depression, impulse control reduction, and slowed cognition. (2) Bipolar disorder: 11/04 - Continue current medication regimen of haloperidol 2.5/2.5/5mg; lamotrigine 50mg qAM; mirtazapine 30mg qHS; lithium 300mg BID; and amantadine 100mg TID - Will having haloperidol 2.5mg dosing available as prn - As patient's condition worsened and was not responding favorably to haloperidol, lorazepam 1mg prn dosing was ordered, it remains the plan that patient is not to be discharged on lorazepam unless going to a supervised setting - Admitted to a locked inpatient behavioral health unit, on q15 minute safety checks - Encourage participation in group and recreational therapies - Suggest involvement of outpatient supports in safety planning - Confirm aftercare arrangements made during previous admission 11/05 -The patient's main complaint currently is anxiety and panic. She also endorses feelings of depression, but within the context of anxious distress. She does not present with symptoms of sarthak or hypomania present. -The plan today is to increase her dose of lamotrigine to a dose of 75 mg a day, and we will continue to monitor for the development of a rash and other side effects associated with lamotrigine. 11/06 - 11/08 - Continue current medication regimen as above 11/09 -The patient did not demonstrate significant mood alterations, apart from severe anxiety, complicated by akathisia, during the current stay. She has remained stable on her current mood stabilizing medication regimen. (3) Chronic pain: 11/04 - Was previously discharged on morphine 15mg qHS with high-dose Tylenol available prn for breakthrough pain - Continue this regimen for now, though it seems patient had not been utilizing her morphine as an outpatient - Ensure communication with patient's PCP, prior discussion led to decision for pain management referral 11/06 - We had learned that the patient had not been utilizing her morphine at home - and upon further discussion, patient reported decently managed pain without morphine at HS - Given patient's misuse of the medication previous (not taking consistently, diverting, etc.) as well as her reports of adequate pain management on high-dose Tylenol, will plan to discontinue at this time to reduce risk of medication interaction with benzodiazepine and reduce potential for misuse as an outpatient. This was discussed with the patient who is in agreement with the plan - Will communicate with patient's PCP regarding this plan, requesting it not be prescribed again on discharge and that any available refills be canceled 11/09 -The patient tells us that she has done well with as needed nonnarcotic pain medication, such as to Tylenol, and she is pleased that she is no longer taking opioid based pain medications. -She agreed that she needs to tell her primary care physician that she does not wish to be prescribed opioid based pain medications in the future, and that she would like her pain to be managed without these medications, given their side effects and habituating nature. (4) Incontinence of urine: 11/08 - Detrol had been prescribed from previous admission, as there were limited options available on formulary to address patient's frequent urinary incontinence. Medication was not found to be overly beneficial - Vesicare, which patient had been prescribed previously for urinary incontinence, was brought in by her son and has been provided to her - Patient reports dramatic improvement in condition since switching medications 11/09 -The patient reports that she is continuing to have urinary incontinence, although she notes that it may have slowed somewhat. She will follow through with her primary care physician. Vesicare has been continued at discharge. Mental Health & Subst Abuse Tx Psychiatrist Name of Psychiatrist: Dr. Manuel Borden at [facility] [place] [facility] Date of Appointment with Psychiatrist: 11/20/18 Time of Appointment with Psychiatrist: 10:15am Psychiatric Appointment Comment: [address], [address] Psych[facility] Release of Information: Obtained, Reviewed and Signed Therapist Name of Therapist: [facility] Date of Therapist Appointment: 11/16/18 Time of Therapist Appointment: 11am Therapy Appointment Comment: [address], [address], [place] Therapist Release of Information: Obtained, Reviewed and Signed Power Hammer Operator Name of Power Hammer Operator: [facility] [place] Phone Number for Power Hammer Operator: [phone] Date of Appointment with Power Hammer Operator: 11/13/18 Time of Appointment with Power Hammer Operator: 1pm Case Management Appointment Comment: Will meet at your house. Power Hammer Operator Release of Information: Obtained, Reviewed and Signed Post Discharge Appointments Primary Care Physician Name Of Family Doctor: [facility] - Dr. Yovany Davis Primary Care Date of Appointment with PCP: 11/15/18 Time of Appointment with PCP: 3:30 p.m. Provider Appointment Comment: [address], [address], [place] Primary Care Release of Information: Obtained, Reviewed and Signed Smoking Cessation Counseling Tobacco Cessation Medication Prescribed at Discharge: Not Applicable/Non-Smoker Contact Information Discharge Discharge Address: [address] [place] [address] Discharge Plan Discharge Items Patient Disposition: Home - Self-Care Reason For Visit: BIPOLAR DISORDER Discharge Diagnosis: Bipolar Disorder Discharge Goals: Decrease discomfort, Improve disease control, Improve function and Increase independence Activity: Resume your previous activity Non-emergency contact: Primary Care Provider, Psychiatrist and Therapist Call non-emergency contact if: you have any medication questions and your symptoms worsen Follow-up/Referrals: Yovany Davis MD [Primary Care Provider] - Diet: Regular Addtl Provider Instructions: Use coping strategies, such a calling your son or a friend, and relaxation/breathing exercises. Prescriptions: New lamotrigine [Lamictal] 25 mg Tablet 75 mg PO QAM Qty: 45 RF: 1 hydroxyzine HCl 25 mg Tablet 50 mg PO HSZ Qty: 30 RF: 0 lorazepam 1 mg Tablet 1 mg PO Q6H PRN (Reason: Anxiety) Qty: 15 RF: 1 lorazepam 1 mg Tablet 1 mg PO TID Qty: 90 RF: 0 diphenhydramine HCl 12.5 mg/5 mL Elixir 5 ml PO TID Qty: 118 RF: 4 gabapentin 300 mg capsule 300 mg PO DIRECTED Qty: 90 RF: 0 Continued nicotine [Nicoderm CQ] 21 mg/24 hr Patch 24 Hour 21 mg transdermal QAM 30 Days Qty: 1 RF: 0 acetaminophen [Tylenol Extra Strength] 500 mg Tablet 1,000 mg PO Q6H PRN (Reason: pain) 30 Days Qty: 60 RF: 0 haloperidol 5 mg Tablet 2.5 mg PO [id number] 30 Days Qty: 15 RF: 0 mirtazapine 15 mg Tablet 15 mg PO HS 30 Days Qty: 30 RF: 0 lithium carbonate 300 mg Tablet 300 mg PO BID 30 Days Qty: 60 RF: 0 multivitamin Tablet 1 tab PO QAM RF: 0 atorvastatin 20 mg tablet 20 mg PO QAM RF: 0 ranitidine HCl 300 mg tablet 300 mg PO BID RF: 0 Discontinued haloperidol 5 mg Tablet 5 mg PO HS 30 Days Qty: 30 RF: 0 hydroxyzine HCl 25 mg Tablet 25 mg PO Q4H PRN (Reason: anxiety) 30 Days Qty: 30 RF: 0 lamotrigine 100 mg tablet 50 mg PO QAM 30 Days Qty: 28 RF: 0 tolterodine [Detrol] 2 mg Tablet 2 mg PO BID RF: 0 morphine 15 mg Tablet 15 mg PO QPM RF: 0 amantadine HCl 100 mg Tablet 100 mg PO TID RF: 0 No Action solifenacin [Vesicare] 5 mg Tablet 10 mg PO DAILY RF: 0 Stand-Alone Forms: [facility] Discharge Orders: Discharge Order (Routine); Ordered 11/09/18 Ordered By: [facility] Admission Data Admit Date/Time: 11/03/18 18:25 Attending Provider: Chante Bermudez Admit Provider: Chante Bermudez Primary Care Provider: Yovany Davis Service: Psychiatry Other Interventions: Discharge Summary Assessment (RN) Last Done: 11/09/18 12:01 PSY Interdisciplinary Discharge Planning Last Done: 11/09/18 13:06 Pending Studies at Discharge: No DC Date/Time DO NOT enter until pt leaves facility: 11/09/18 14:00
== END 2018-11-09 14:00 | disposition home or self-care (01) | DRG 885 ==
LOC: ED 13:52 → 3S 18:22

== ENCOUNTER 2020-01-21 10:36 | Inpatient (IN) ==
[2020-01-21 11:25] LABS: Basophils # (auto) 0.05 K/uL (0-0.2); Basophils % (auto) 0.6 %; Eosinophils % (auto) 1.2 %; Hematocrit (blood only) 40.4 % (37-47); Hemoglobin 13.8 g/dL (12.0-16.0); Immature Granulocytes # (auto) 0.01 K/uL (0.00-0.02); Immature Granulocytes % (auto) 0.1 %; Lymphocytes # (auto) 1.62 K/uL (1.2-3.4); Lymphocytes % (auto) 19.8 %; Mean Corpuscular Hemoglobin 32.4 pg (25-34); Mean Corpuscular Hgb Conc 34.2 g/dL (32-36); Mean Corpuscular Volume 94.8 fL (80-100); Mean Platelet Volume 9.8 fL (7.4-10.4); Monocytes # (auto) 0.58 K/uL (0.11-0.59); Monocytes % (auto) 7.1 %; Neutrophils # (auto) 5.82 K/uL (1.4-6.5); Neutrophils % (auto) 71.2 %; Platelet Count 261 K/uL (130-400); RDW Coefficient of Variation 12.9 % (11.5-14.5); RDW Standard Deviation 44.7 fL (36.4-46.3); Red Blood Count 4.26 M/uL (4.2-5.4); White Blood Count 8.18 K/uL (4.8-10.8)
[2020-01-21 11:26] LABS: Appearance Urine Clear (Clear); Bilirubin Urine Negative (Negative); Blood Urine Negative (Negative); Color Urine Yellow; Glucose Urine UA Negative (Negative); Ketones Urine Negative (Negative); Leukocyte Esterase Urine Negative (Negative); Nitrite Urine Negative (Negative); Protein Urine Negative (Negative); Specific Gravity Urine 1.011 (1.000-1.030); Urobilinogen Urine Negative (Negative)
--- NOTE | 2020-01-21 11:26 | Emergency Department Note ---
Impression & Plan Bipolar disorder ED Provider Note NAME: ALINA STONE AGE: 59 SEX: F ARRIVES VIA: Ambulance INFORMANT: Patient, ED PROVIDER(S): Cruzito Koch MD CHIEF COMPLAINT: Manic episode. PLAN: Disposition: Admit. MEDICAL DECISION MAKING: The patient is a pleasant 59-year-old woman with a past medical history of bipolar disorder who presents emergency department after being found near her home where she resides strawberry marie lying next to the road along the curb next to a drain, confused. The patient reports that she remembers being found at this location but is unsure of why she was there and reports that she has not been taking her medications regularly because of overall feeling increasingly confused. She denies any auditory hallucinations but admits to feeling paranoid about her son placing cameras to watch her. She is accompanied by her electric solderer. To the emergency department she does exhibit a degree of insight and admits that being found literally in the gutter is not a good thing. She does admit that she needs help and is willing for voluntary admission. She reports her chronic smoker's cough but otherwise denies any fevers, chills, shortness of breath, nausea, vomiting, diarrhea, urinary symptoms. She denies any known contacts with individuals diagnosed with COVID-19. On arrival patient is no acute distress, afebrile stable vital signs. Exam is unremarkable. WBC, H/H and platelets within normal limits. Chemistry without acidosis. AST marginally elevated at 59, nonspecific. TSH within normal limits. UA negative for infection. Drug screen negative. COVID-19 RNA NAAT screen negative. Patient was medically cleared. Patient continued to be agreeable with plan for admission. However given recent report of waxing and waning confusion in the setting of her bipolar disorder with 302 petition it was determined to be appropriate to fulfill 302 given this. At this time the patient also agrees with this as she acknowledges she sometimes can become confused and lose insight. Admitted to [facility]. Triage Nursing notes reviewed and agree them. Prior medical records reviewed Vital Signs: reviewed and remarkable for no significant abnormalities Differential diagnosis: Mood disorder, infection, hypoglycemia, electrolyte abnormalities, cardiac sources, intracerebral event, toxicologic, trauma, neurologic, as well as other pathologies. ER treatment provided: See below. Laboratory studies: See below HPI: The patient is a pleasant 59-year-old woman with a past medical history of bipolar disorder who presents emergency department after being found near her home where she resides strawberry marie lying next to the road along the curb next to a drain, confused. The patient reports that she remembers being found at this location but is unsure of why she was there and reports that she has not been taking her medications regularly because of overall feeling increasingly confused. She denies any auditory hallucinations but admits to feeling paranoid about her son placing cameras to watch her. She is accompanied by her electric solderer. To the emergency department she does exhibit a degree of insight and admits that being found literally in the gutter is not a good thing. She does admit that she needs help and is willing for voluntary admission. She reports her chronic smoker's cough but otherwise denies any fevers, chills, shortness of breath, nausea, vomiting, diarrhea, urinary symptoms. She denies any known contacts with individuals diagnosed with COVID-19. ROS: See above HPI for pertinent positives & negatives. A total of 10 systems reviewed and were otherwise negative. PAST MEDICAL HISTORY:See Below PAST SURGICAL HISTORY:See Below FAMILY HISTORY:See Below SOCIAL HISTORY:See Below HOME MEDICATIONS:See Below ALLERGIES:See Below VITALS:See Below PHYSICAL EXAMINATION: GENERAL: Awake, alert, fatigued-appearing, in no distress HENT: Normocephalic, atraumatic. Oropharynx with dry mucous membranes and otherwise unremarkable. EYES: Normal conjunctiva. Sclera non-icteric. EOMI. No nystamgus. PEARRL. NECK: Supple. No nuchal rigidity. FROM. No JVD. RESPIRATORY: Clear to auscultation. CARDIAC: Regular rate, normal rhythm. Extremities warm and well perfused. Pulses equal. ABDOMEN: Soft, non-distended. No tenderness to palpation. No rebound or guarding. No masses. RECTAL: Deferred. MUSCULOSKELETAL: Chest examination reveals no tenderness. The back is symmetrica l on inspection without obvious abnormality. There is no CVA tenderness to palpation. No joint edema. LOWER EXTREMITIES: Calves are equal size bilaterally and non-tender. No edema. No discoloration. NEURO: Normal sensorium. No sensory or motor deficits noted. SKIN: No rash or jaundice noted. PSYCH: Flat/melancholy affect, Cooperative, denies SI/HI, positive paranoia, admits to being frequently confused with loss of insight and noncompliant with her medications, Cruzito Koch MD Past Med/Surg History Medical History (Updated 01/21/20 @ 21:47 by Cruzito Koch MD) Acute anxiety Bipolar disorder Depression Emphysema lung Paranoia (04/02/13) Restless legs syndrome Scoliosis Surgical History Hx of spinal surgery Family History Other Heart disease Hypertension Social History Smoking Status: Current every day smoker Tobacco Type: Cigarettes Hx Alcohol Use: No Hx Substance Use: Yes Preferred Language: Lithuanian Communication Ability: Effective Visual Impairment: No Limitations Hearing Ability: Normal Lime Supervisor Required: No Beliefs That Will Affect Care: Spiritual Spiritual Healthcare Practices: patient believes in God/Piyush marital status: current occupational status: unemployed Feels Safe at Home: Yes Assistive Devices: Glasses Allergies Allergies Allergy/AdvReac Type Severity Reaction Status Date / Time risperidone Allergy Unknown CONFUSED Verified 01/21/20 16:25 Home Meds Home Medications Medication Instructions Recorded Confirmed atorvastatin [Lipitor] 20 mg PO QAM 12/04/17 01/21/20 multivitamin 1 tab PO QAM 12/04/17 01/21/20 hydroxyzine HCl 50 mg PO HS 12/23/19 01/21/20 deutetrabenazine [Austedo] 12 mg PO BID 12/24/19 01/21/20 mirtazapine 15 mg PO HS 12/24/19 01/21/20 lamotrigine 200 mg PO QAM 01/06/20 01/21/20 olanzapine 5 mg PO HS 01/06/20 01/21/20 lorazepam 1 mg PO TID 01/21/20 01/21/20 Results & Data (ED) Vital Signs Vital Signs - 24 hr 01/21/20 10:36 01/21/20 15:03 Temperature 36.8 C Temperature Source Oral Pulse Rate 85 Pulse Rate [Finger] 82 Respiratory Rate 16 18 Respiratory Effort / Characteristics Non-Labored Spontaneous Respiratory Depth Normal Respiratory Pattern Regular Blood Pressure 127/64 Blood Pressure [Left Arm] 142/77 H Blood Pressure Mean 85 Blood Pressure Mean [Left Arm] 98 Blood Pressure Position Lying Pulse Oximetry 95 97 Oxygen Delivery Method Room Air Room Air Sepsis Recent Fever Within 48 Hours No Sepsis New/Unexplained Change in Mental Status N/A Sepsis Action Taken by Nursing No Action Required Laboratory Data Attestation: I reviewed the patient's lab results. Result diagrams: 01/21/20 11:07 01/21/20 11:07 Lab Results 01/21/20 01/21/20 01/21/20 Range/Units 10:45 10:45 11:07 WBC 8.18 (4.8-10.8) K/uL RBC 4.26 (4.2-5.4) M/uL Hgb 13.8 (12.0-16.0) g/dL Hct 40.4 (37-47) % MCV 94.8 (80-100) fL MCH 32.4 (25-34) pg MCHC 34.2 (32-36) g/dL RDW Std Deviation 44.7 (36.4-46.3) fL RDW Coeff of Haley 12.9 (11.5-14.5) % Plt Count 261 (130-400) K/uL MPV 9.8 (7.4-10.4) fL Immature Gran % (Auto) 0.1 % Neut % (Auto) 71.2 % Lymph % (Auto) 19.8 % [place] % (Auto) 7.1 % Eos % (Auto) 1.2 % Baso % (Auto) 0.6 % Neut # (Auto) 5.82 (1.4-6.5) K/uL Lymph # (Auto) 1.62 (1.2-3.4) K/uL [place] # (Auto) 0.58 (0.11-0.59) K/uL Eos # (Auto) 0.10 (0-0.5) K/uL Baso # (Auto) 0.05 (0-0.2) K/uL Immature Gran # (Auto) 0.01 (0.00-0.02) K/uL Sodium (136-145) mmol/L Potassium (3.5-5.1) mmol/L Chloride (98-107) mmol/L Carbon Dioxide (21-32) mmol/L Anion Gap (3-11) BUN (7-18) mg/dl Creatinine (0.6-1.2) mg/dl Est Cr Clr Drug Dosing ml/min Est GFR ( Amer) Est GFR (Non-Af Amer) BUN/Creatinine Ratio (10-20) Glucose (70-99) mg/dl Calcium (8.5-10.1) mg/dl Total Bilirubin (0.2-1) mg/dl AST (15-37) U/L ALT (12-78) U/L Alkaline Phosphatase (45-117) U/L Total Protein (6.4-8.2) gm/dl Albumin (3.4-5.0) gm/dl Globulin (2.5-4.0) gm/dl Albumin/Globulin Ratio (0.9-2) TSH (0.300-4.500) uIu/ml Urine Color Yellow Urine Appearance Clear (Clear) Urine pH 7.0 (4.5-7.5) Ur Specific Jeff 1.011 (1.000-1.030) Urine Protein Negative (Negative) Urine Glucose (UA) Negative (Negative) Urine Ketones Negative (Negative) Urine Blood Negative (Negative) Urine Nitrite Negative (Negative) Urine Bilirubin Negative (Negative) Urine Urobilinogen Negative (Negative) Ur Leukocyte Esterase Negative (Negative) Salicylates (2.8-20) mg/dl Urine Opiates Screen Neg (Neg) Ur Methadone, Qual Neg (Neg) Acetaminophen (10-30) ug/ml Urine Barbiturates Neg (Neg) Ur Phencyclidine (PCP) Neg (Neg) U Amphetamin/Meth Scrn Neg (Neg) MDMA (Ecstasy) Screen Neg (Neg) U Benzodiazepines Scrn Neg (Neg) Ur Cocaine Metabolite Neg (Neg) U Marijuana (THC) Screen Neg (Neg) Ethyl Alcohol mg/dL (0-3) mg/dl COVID-19 Eval Order SARS-CoV-2, RNA, NAAT (NEGATIVE) 01/21/20 01/21/20 01/21/20 Range/Units 11:07 11:07 11:07 WBC (4.8-10.8) K/uL RBC (4.2-5.4) M/uL Hgb (12.0-16.0) g/dL Hct (37-47) % MCV (80-100) fL MCH (25-34) pg MCHC (32-36) g/dL RDW Std Deviation (36.4-46.3) fL RDW Coeff of Haley (11.5-14.5) % Plt Count (130-400) K/uL MPV (7.4-10.4) fL Immature Gran % (Auto) % Neut % (Auto) % Lymph % (Auto) % [place] % (Auto) % Eos % (Auto) % Baso % (Auto) % Neut # (Auto) (1.4-6.5) K/uL Lymph # (Auto) (1.2-3.4) K/uL [place] # (Auto) (0.11-0.59) K/uL Eos # (Auto) (0-0.5) K/uL Baso # (Auto) (0-0.2) K/uL Immature Gran # (Auto) (0.00-0.02) K/uL Sodium 143 (136-145) mmol/L Potassium 3.8 (3.5-5.1) mmol/L Chloride 114 H (98-107) mmol/L Carbon Dioxide 25 (21-32) mmol/L Anion Gap 4.0 (3-11) BUN 18 (7-18) mg/dl Creatinine 0.77 (0.6-1.2) mg/dl Est Cr Clr Drug Dosing 68.3 ml/min Est GFR ( Amer) 98.0 Est GFR (Non-Af Amer) 84.5 BUN/Creatinine Ratio 23.9 H (10-20) Glucose 127 H (70-99) mg/dl Calcium 9.0 (8.5-10.1) mg/dl Total Bilirubin 0.2 (0.2-1) mg/dl AST 59 H (15-37) U/L ALT 75 (12-78) U/L Alkaline Phosphatase 103 (45-117) U/L Total Protein 6.5 (6.4-8.2) gm/dl Albumin 3.5 (3.4-5.0) gm/dl Globulin 3.0 (2.5-4.0) gm/dl Albumin/Globulin Ratio 1.2 (0.9-2) TSH 0.499 (0.300-4.500) uIu/ml Urine Color Urine Appearance (Clear) Urine pH (4.5-7.5) Ur Specific Jeff (1.000-1.030) Urine Protein (Negative) Urine Glucose (UA) (Negative) Urine Ketones (Negative) Urine Blood (Negative) Urine Nitrite (Negative) Urine Bilirubin (Negative) Urine Urobilinogen (Negative) Ur Leukocyte Esterase (Negative) Salicylates 3.3 (2.8-20) mg/dl Urine Opiates Screen (Neg) Ur Methadone, Qual (Neg) Acetaminophen < 2 L (10-30) ug/ml Urine Barbiturates (Neg) Ur Phencyclidine (PCP) (Neg) U Amphetamin/Meth Scrn (Neg) MDMA (Ecstasy) Screen (Neg) U Benzodiazepines Scrn (Neg) Ur Cocaine Metabolite (Neg) U Marijuana (THC) Screen (Neg) Ethyl Alcohol mg/dL < 3.0 (0-3) mg/dl COVID-19 Eval Order SARS-CoV-2, RNA, NAAT (NEGATIVE) 01/21/20 01/21/20 Range/Units 13:35 13:35 WBC (4.8-10.8) K/uL RBC (4.2-5.4) M/uL Hgb (12.0-16.0) g/dL Hct (37-47) % MCV (80-100) fL MCH (25-34) pg MCHC (32-36) g/dL RDW Std Deviation (36.4-46.3) fL RDW Coeff of Haley (11.5-14.5) % Plt Count (130-400) K/uL MPV (7.4-10.4) fL Immature Gran % (Auto) % Neut % (Auto) % Lymph % (Auto) % [place] % (Auto) % Eos % (Auto) % Baso % (Auto) % Neut # (Auto) (1.4-6.5) K/uL Lymph # (Auto) (1.2-3.4) K/uL [place] # (Auto) (0.11-0.59) K/uL Eos # (Auto) (0-0.5) K/uL Baso # (Auto) (0-0.2) K/uL Immature Gran # (Auto) (0.00-0.02) K/uL Sodium (136-145) mmol/L Potassium (3.5-5.1) mmol/L Chloride (98-107) mmol/L Carbon Dioxide (21-32) mmol/L Anion Gap (3-11) BUN (7-18) mg/dl Creatinine (0.6-1.2) mg/dl Est Cr Clr Drug Dosing ml/min Est GFR ( Amer) Est GFR (Non-Af Amer) BUN/Creatinine Ratio (10-20) Glucose (70-99) mg/dl Calcium (8.5-10.1) mg/dl Total Bilirubin (0.2-1) mg/dl AST (15-37) U/L ALT (12-78) U/L Alkaline Phosphatase (45-117) U/L Total Protein (6.4-8.2) gm/dl Albumin (3.4-5.0) gm/dl Globulin (2.5-4.0) gm/dl Albumin/Globulin Ratio (0.9-2) TSH (0.300-4.500) uIu/ml Urine Color Urine Appearance (Clear) Urine pH (4.5-7.5) Ur Specific Jeff (1.000-1.030) Urine Protein (Negative) Urine Glucose (UA) (Negative) Urine Ketones (Negative) Urine Blood (Negative) Urine Nitrite (Negative) Urine Bilirubin (Negative) Urine Urobilinogen (Negative) Ur Leukocyte Esterase (Negative) Salicylates (2.8-20) mg/dl Urine Opiates Screen (Neg) Ur Methadone, Qual (Neg) Acetaminophen (10-30) ug/ml Urine Barbiturates (Neg) Ur Phencyclidine (PCP) (Neg) U Amphetamin/Meth Scrn (Neg) MDMA (Ecstasy) Screen (Neg) U Benzodiazepines Scrn (Neg) Ur Cocaine Metabolite (Neg) U Marijuana (THC) Screen (Neg) Ethyl Alcohol mg/dL (0-3) mg/dl COVID-19 Eval Order Covid19 [facility] SARS-CoV-2, RNA, NAAT NEGATIVE (NEGATIVE) Administered Medications Lorazepam (Lorazepam 1 Mg Tab) 1 mg PO TID SHUN; Protocol Stop: 02/20/20 20:59 Last Admin: 01/21/20 20:48 Dose: 1 mg Documented by: Mirtazapine (Mirtazapine Tab 15 Mg Tab) 15 mg PO HS SHUN Stop: 02/20/20 20:59 Last Admin: 01/21/20 20:48 Dose: 15 mg Documented by: [id number] Olanzapine (Olanzapine 5 Mg Tablet) 5 mg PO HS [facility] Stop: 02/20/20 20:59 Last Admin: 01/21/20 20:50 Dose: 5 mg Documented by: [id number] Discharge Plan Visit Data Chief Complaint: Mental Health Evaluation ED Provider: Cruzito Koch Discharge Problem: Bipolar disorder Patient Disposition: Admitted As Inpatient Discharge Instructions Interventions: ED Discharge Assessment Last Done: 01/21/20 16:42 Discharge Problem: Bipolar disorder Qualifiers: Active/Remission status: currently active Current bipolar episode type: manic Current episode severity: severe Psychotic features: with psychotic features Qualified Code(s): F31.2 - Bipolar disorder, current episode manic severe with psychotic features
[2020-01-21 11:43] LABS: Albumin Level 3.5 gm/dl (3.4-5.0); BUN Creatinine Ratio 23.9 (10-20); Creatinine Clr Calc Pharmacy 68.3 ml/min; Est GFR (Non-African American) 84.5; Potassium 3.8 mmol/L (3.5-5.1)
[2020-01-21 11:45] LABS: Amphetamines+Metham, Urine Neg (Neg); Barbiturates, Urine Neg (Neg); Benzodiazepine, Urine Neg (Neg); Cocaine, Urine Neg (Neg); MDMA (Ecstacy), Urine Neg (Neg); Methadone, Urine Neg (Neg); Opiate, Urine Neg (Neg); Phencyclidine, Urine Neg (Neg)
[2020-01-21 11:46] LABS: Acetaminophen < 2 ug/ml (10-30); Salicylate 3.3 mg/dl (2.8-20)
[2020-01-21 11:53] LABS: Albumin Globulin Ratio 1.2 (0.9-2); Bilirubin,Total 0.2 mg/dl (0.2-1); Thyroid Stimulating Hormone 0.499 uIu/ml (0.300-4.500); Total Protein 6.5 gm/dl (6.4-8.2)
[2020-01-21] MEDS ORDERED: BISMUTH SUBSALICYLATE LIQD 236 ML PO PRN (15:47)
[2020-01-21] MEDS ORDERED: ALUMINUM/MAGNESIUM SUSP 30 ML UDC PO PRN (15:47)
[2020-01-21] MEDS ORDERED: SODIUM CHLORIDE 0.65% NA SOLN 45 ML (OCEAN) PRN (15:47)
[2020-01-21] MEDS ORDERED: MAGNESIUM HYDROXIDE SUSP 30 ML UDC PO PRN (15:47)
[2020-01-21] MEDS: MIRTAZAPINE TAB 15 MG TAB PO SCH (20:48)
[2020-01-21] MEDS: LORazepam 1 MG TAB PO SCH (20:48)
[2020-01-21] MEDS: OLANZapine 5 MG TABLET PO SCH (20:50)
[2020-01-22] MEDS: ACETAMINOPHEN 325 MG TAB PO PRN ×2 (04:08→21:43)
[2020-01-22] MEDS: hydrOXYzine HCl 25 MG TAB PO PRN ×2 (04:08→21:15)
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
[2020-01-22] MEDS: MULTIVITAMIN TAB PO SCH (08:50)
[2020-01-22] MEDS: ATORVASTATIN 20 MG TAB PO SCH (08:50)
[2020-01-22] MEDS: LORazepam 1 MG TAB PO SCH ×2 (08:52→13:50)
[2020-01-22] MEDS: NICOTINE 21 MG/24 HR TDSY TD SCH (15:12)
[2020-01-22] MEDS: lamoTRIgine 25 MG TAB PO SCH (17:43)
[2020-01-22] MEDS: LORazepam 0.5 MG TAB PO SCH (20:47)
[2020-01-22] MEDS: [UNRECOGNIZED DRUG - REMARK] PO SCH (20:49)
[2020-01-22] MEDS: MIRTAZAPINE TAB 15 MG TAB PO SCH (20:50)
[2020-01-22] MEDS: OLANZapine 5 MG TABLET PO SCH (20:51)
[2020-01-23] MEDS: ACETAMINOPHEN 325 MG TAB PO PRN ×2 (05:19→22:36)
[2020-01-23] MEDS: ATORVASTATIN 20 MG TAB PO SCH (08:53)
[2020-01-23] MEDS: LORazepam 0.5 MG TAB PO SCH ×2 (08:53→13:44)
[2020-01-23] MEDS: lamoTRIgine 25 MG TAB PO SCH (08:53)
[2020-01-23] MEDS: MULTIVITAMIN TAB PO SCH (08:53)
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
[2020-01-23 09:21] LABS: Glucose Fasting 118 mg/dl (70-99)
[2020-01-23 09:28] LABS: Chol HDL Ratio 3; Cholesterol 198 mg/dl (0-200); HDL Cholesterol 72 mg/dl; LDL Cholesterol Calculated 95 mg/dl; Triglycerides 155 mg/dl (0-150); VLDL Cholesterol 31 mg/dl
[2020-01-23] MEDS: NICOTINE 21 MG/24 HR TDSY TD SCH (09:29)
[2020-01-23] MEDS: OLANZAPINE 2.5 MG TAB PO PRN (09:44)
[2020-01-23] MEDS: [UNRECOGNIZED DRUG - REMARK] PO SCH ×2 (13:02→20:35)
[2020-01-23] MEDS ORDERED: OLANZAPINE 2.5 MG TAB PO STA (15:02)
[2020-01-23 18:57] LABS: Appearance Urine Clear (Clear); Bacteria Urine Automated Negative (Negative); Bilirubin Urine Negative (Negative); Blood Urine Trace (Negative); Cast Urine Automated 0 /lpf (0-5); Color Urine Yellow; Glucose Urine UA Negative (Negative); Ketones Urine Negative (Negative); Leukocyte Esterase Urine Negative (Negative); Nitrite Urine Negative (Negative); Protein Urine Negative (Negative); RBC Urine Automated 0-4 /hpf (0-4); Specific Gravity Urine 1.011 (1.000-1.030); Urobilinogen Urine Negative (Negative)
[2020-01-23] MEDS: OXYBUTYNIN CHLORIDE 5 MG TAB PO SCH (20:32)
[2020-01-23] MEDS: OLANZapine 5 MG TABLET PO SCH (20:33)
[2020-01-23] MEDS: MIRTAZAPINE TAB 15 MG TAB PO SCH (20:34)
[2020-01-23] MEDS: LORazepam 1 MG TAB PO SCH (21:04)
[2020-01-24] MEDS: hydrOXYzine HCl 25 MG TAB PO PRN (03:25)
[2020-01-24] MEDS: OLANZAPINE 2.5 MG TAB PO PRN (06:30)
[2020-01-24] MEDS: OXYBUTYNIN CHLORIDE 5 MG TAB PO SCH ×2 (08:37→21:17)
[2020-01-24] MEDS: ATORVASTATIN 20 MG TAB PO SCH (08:38)
[2020-01-24] MEDS: MULTIVITAMIN TAB PO SCH (08:38)
[2020-01-24] MEDS: lamoTRIgine 25 MG TAB PO SCH (08:38)
[2020-01-24] MEDS: OLANZapine 5 MG TABLET PO SCH ×2 (08:38→21:17)
[2020-01-24] MEDS: LORazepam 0.5 MG TAB PO SCH ×2 (08:38→14:30)
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
[2020-01-24] MEDS: NICOTINE 7 MG/24 HR TDSY TD SCH (13:21)
[2020-01-24] MEDS: [UNRECOGNIZED DRUG - REMARK] PO SCH ×2 (13:21→21:16)
[2020-01-24] MEDS: ACETAMINOPHEN 325 MG TAB PO PRN (18:01)
[2020-01-24] MEDS: LORazepam 1 MG TAB PO SCH (21:17)
[2020-01-24] MEDS: MIRTAZAPINE TAB 15 MG TAB PO SCH (21:19)
[2020-01-25] MEDS: NICOTINE 7 MG/24 HR TDSY TD SCH (08:00)
[2020-01-25] MEDS: lamoTRIgine 25 MG TAB PO SCH (08:01)
[2020-01-25] MEDS: MULTIVITAMIN TAB PO SCH (08:01)
[2020-01-25] MEDS: OXYBUTYNIN CHLORIDE 5 MG TAB PO SCH ×2 (08:01→20:16)
[2020-01-25] MEDS: ATORVASTATIN 20 MG TAB PO SCH (08:01)
[2020-01-25] MEDS: OLANZapine 5 MG TABLET PO SCH ×2 (08:01→20:18)
[2020-01-25] MEDS: LORazepam 0.5 MG TAB PO SCH ×2 (08:01→13:57)
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
[2020-01-25] MEDS: [UNRECOGNIZED DRUG - REMARK] PO SCH ×2 (12:51→20:20)
[2020-01-25] MEDS: ACETAMINOPHEN 325 MG TAB PO PRN ×2 (14:34→20:21)
[2020-01-25] MEDS: LORazepam 1 MG TAB PO SCH (20:19)
[2020-01-25] MEDS: MIRTAZAPINE TAB 15 MG TAB PO SCH (20:21)
[2020-01-26] MEDS: hydrOXYzine HCl 25 MG TAB PO PRN (02:13)
[2020-01-26] MEDS: ACETAMINOPHEN 325 MG TAB PO PRN ×2 (02:13→14:50)
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
[2020-01-26] MEDS: LORazepam 0.5 MG TAB PO SCH ×3 (08:19→20:15)
[2020-01-26] MEDS: MULTIVITAMIN TAB PO SCH (08:19)
[2020-01-26] MEDS: ATORVASTATIN 20 MG TAB PO SCH (08:19)
[2020-01-26] MEDS: lamoTRIgine 25 MG TAB PO SCH (08:19)
[2020-01-26] MEDS: OLANZapine 5 MG TABLET PO SCH ×2 (08:19→20:16)
[2020-01-26] MEDS: NICOTINE 7 MG/24 HR TDSY TD SCH (08:19)
[2020-01-26] MEDS: OXYBUTYNIN CHLORIDE 5 MG TAB PO SCH ×2 (08:19→20:16)
[2020-01-26] MEDS: NICOTINE POLACRILEX 2 MG GUM MT PRN ×2 (11:03→17:56)
[2020-01-26] MEDS: [UNRECOGNIZED DRUG - REMARK] PO SCH ×2 (12:26→20:17)
[2020-01-26] MEDS: MIRTAZAPINE TAB 15 MG TAB PO SCH (20:18)
[2020-01-27] MEDS: hydrOXYzine HCl 25 MG TAB PO PRN ×4 (02:10→23:11)
[2020-01-27] MEDS: ACETAMINOPHEN 325 MG TAB PO PRN ×3 (02:54→21:13)
[2020-01-27] MEDS: LORazepam 0.5 MG TAB PO SCH ×3 (08:25→20:59)
[2020-01-27] MEDS: lamoTRIgine 25 MG TAB PO SCH (08:25)
[2020-01-27] MEDS: OXYBUTYNIN CHLORIDE 5 MG TAB PO SCH ×2 (08:25→20:59)
[2020-01-27] MEDS: ATORVASTATIN 20 MG TAB PO SCH (08:26)
[2020-01-27] MEDS: NICOTINE 7 MG/24 HR TDSY TD SCH (08:26)
[2020-01-27] MEDS: MULTIVITAMIN TAB PO SCH (08:26)
[2020-01-27] MEDS: OLANZapine 5 MG TABLET PO SCH ×2 (08:26→21:00)
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
[2020-01-27] MEDS: [UNRECOGNIZED DRUG - REMARK] PO SCH ×2 (12:39→21:00)
[2020-01-27] MEDS: MIRTAZAPINE TAB 15 MG TAB PO SCH (21:01)
[2020-01-28] MEDS: OXYBUTYNIN CHLORIDE 5 MG TAB PO SCH ×2 (08:14→21:02)
[2020-01-28] MEDS: LORazepam 0.5 MG TAB PO SCH ×3 (08:14→21:01)
[2020-01-28] MEDS: lamoTRIgine 25 MG TAB PO SCH (08:14)
[2020-01-28] MEDS: ATORVASTATIN 20 MG TAB PO SCH (08:14)
[2020-01-28] MEDS: OLANZapine 5 MG TABLET PO SCH ×2 (08:15→21:02)
[2020-01-28] MEDS: MULTIVITAMIN TAB PO SCH (08:15)
[2020-01-28] MEDS: NICOTINE 7 MG/24 HR TDSY TD SCH (08:28)
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
[2020-01-28] MEDS: [UNRECOGNIZED DRUG - REMARK] PO SCH ×2 (12:32→21:03)
[2020-01-28] MEDS: ACETAMINOPHEN 325 MG TAB PO PRN ×2 (14:07→21:04)
[2020-01-28] MEDS: MIRTAZAPINE TAB 15 MG TAB PO SCH (21:04)
[2020-01-29] MEDS: ACETAMINOPHEN 325 MG TAB PO PRN ×2 (06:44→13:19)
[2020-01-29] MEDS: LORazepam 0.5 MG TAB PO SCH ×3 (07:56→21:19)
[2020-01-29] MEDS: OXYBUTYNIN CHLORIDE 5 MG TAB PO SCH ×2 (07:57→21:19)
[2020-01-29] MEDS: lamoTRIgine 25 MG TAB PO SCH (07:58)
[2020-01-29] MEDS: NICOTINE 7 MG/24 HR TDSY TD SCH (07:59)
[2020-01-29] MEDS: MULTIVITAMIN TAB PO SCH (07:59)
[2020-01-29] MEDS: ATORVASTATIN 20 MG TAB PO SCH (07:59)
[2020-01-29] MEDS: OLANZapine 5 MG TABLET PO SCH ×2 (08:01→21:19)
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
[2020-01-29] MEDS: [UNRECOGNIZED DRUG - REMARK] PO SCH ×2 (12:37→21:20)
[2020-01-29] MEDS: MIRTAZAPINE TAB 15 MG TAB PO SCH (21:50)
[2020-01-30] MEDS: ACETAMINOPHEN 325 MG TAB PO PRN (06:33)
[2020-01-30] MEDS: LORazepam 0.5 MG TAB PO SCH (08:47)
[2020-01-30] MEDS: OLANZapine 5 MG TABLET PO SCH (08:48)
[2020-01-30] MEDS: OXYBUTYNIN CHLORIDE 5 MG TAB PO SCH (08:48)
[2020-01-30] MEDS: lamoTRIgine 25 MG TAB PO SCH (08:48)
[2020-01-30] MEDS: ATORVASTATIN 20 MG TAB PO SCH (08:48)
[2020-01-30] MEDS: MULTIVITAMIN TAB PO SCH (08:48)
[2020-01-30] MEDS: NICOTINE 7 MG/24 HR TDSY TD SCH (08:53)
--- NOTE | 2020-01-30 09:39 | Discharge Summary ---
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 weeks per her report. Will have to restart titration following standard protocol in order to limit risk of SJS (25mg daily x 2 weeks, then 50mg daily; previous home dose was 200mg). - Continue home dose of mirtazapine 15mg HS, hydroxyzine 50mg HS, and Austedo 12mg daily. - Patient advised not to drive until she has fully stabilized and is not experiencing sedation or cognitive impairment from medications (likely should be off benzos). She expresses understanding, and will need to discuss this with her son as well. May need to submit [place] DOT reporting form. 01/22 - Pt is more disorganized, confused, and harder to redirect today. She is delusional and stimulated by peers, demonstrating poor boundaries - Will titrate olanzapine to 5mg BID to target increased manic symptoms - she continues to have prn medications available - Will continue lorazepam 0.5mg BID in morning and afternoon, but increase HS dose back to 1mg - overall goal will be to continue attempts to taper the m edication as time progresses - Fasting labs reviewed: glucose was elevated at 118, triglycerides mildly elevated at 155 and remainder of values were WNL - Will likely need to involve son, [facility] staff, and top case assembler in discharge planning decisions 01/23 -After having slept last night, and after above-referenced medication adjustments, the patient's behavior is under much better control today. At present, she is not demonstrating any inappropriate behaviors. Further, the patient does not present with pressured speech or flight of ideas. No delusional material is identified in the patient's thought content, and she tells us that she is not currently experiencing any perceptual disturbances. Psychiatric hospitalization remains the least restrictive, least intensive level of care consistent with the patient's needs. Her history includes a pattern of improvement followed by fairly rapid decompensation, and I find that we will need to continue to observe her and continue intensive inpatient treatment before she can be safely and appropriately transitioned to the community. 01/24 - Continue current medications as above, mood has been more stable - Considering meeting with son, will also need to coordinate with patient's top case assembler and [facility] staff 01/25 - Continue current treatment plan - lorazepam dosing reduced back to 0.5mg TID - Meeting with son scheduled for this afternoon - Continue to coordinate discharge and safety planning with top case assembler and [facility] staff 01/26 - Continue current treatment plan - intermittent episodes of confusion/disorganization are ongoing - Meeting with son went well, he remains supportive but setting reasonable limits - Continue to coordinate discharge plan with [facility] staff and top case assembler 01/27 - Continue current treatment - pt continues to demonstrate more stable mood and improved clarity of thought - Medically necessary private room was discontinued, as patient will need to be able to tolerate a roommate when she returns to the [facility] - Coordinate discharge timeline with [facility] staff - it is felt that patient is approaching readiness for discharge 01/28 - Continue current treatment plan - reviewed medication changes with patient at her request in preparation for discharge tomorrow - Discharge timeline coordinated with [facility] staff - patient is to be discharged tomorrow afternoon - Pt continues to benefit from group therapy and the supportive setting 01/29 -Discharge to [facility]. Follow-up with Dr. Turk, Amy rule for therapy, she rescreen for case management, and Elida for mobile psych rehab. -No driving until fully stabilized and cleared by her outpatient physician. Son to keep her car at his home in the interim. Son also exploring becoming POA on her bank account due to concerns that others take advantage of her financially. (3) Anxiety: 01/21 - Patient has been on lorazepam 1mg tid for the past year. D/w Dr. Borden to start taper, and will reduce to 0.5mg tid as patient has not been taking it regularly for weeks, UDS was negative. 01/22 - Continue overall plan to taper lorazepam; however, HS dose was increased back to 1mg due to patient's increased restlessness 01/23 -The patient has been made aware of and convincingly demonstrates that she is able to understand the risks associated with benzodiazepines, such as lorazepam. She is aware that these include, but are not limited to physical habituation, complicated withdrawal that can lead to seizures or even , abuse potential, increased risk of falls, cognitive impairments, and exacerbation of depression. At the same time, the patient's history demonstrates that she does respond favorably to lorazepam and similar medications, and the plan at this point is to continue her lorazepam dose of 1 mg at bedtime. 01/24 - Pt reports increased situational anxiety - reports concern about speaking to her son, fearing she has lost trust 01/25 - lorazepam reduced to 0.5mg TID as above 01/29 -Anxiety significantly improved, continue reduced dose of lorazepam. (4) Chronic pain: 01/21 - Supportive treatment, offer acetaminophen as needed. 01/23 -When asked today, the patient reported that her pain symptoms were "okay. About his usual." (5) Incontinence of urine: 01/22 - Pt having frequent episodes of incontinence; received collateral from [facility] staff that patient has difficulty with incontinence during manic episodes and does utilize oxybutynin 5mg as needed for this when she is destabilized mentally - Will provide order for oxybutynin 5mg BID given the consistency of this concern during her admission thus far 01/23 -No further episodes of urinary incontinence are reported today. 01/26 - Ongoing reported improvement related to this concern Mental Health & Subst Abuse Tx Psychiatrist [facility] Psychiatrist[facility] Borden Psychiatrist's Date of Appointment with Psychiatrist: 02/20/20 Time of Appointment with Psychiatrist: 4:05 Psychiatric Appointment Comment: phone appt Psychiatrist Release of Information: Obtained, Reviewed and Signed Therapist Name of Therapist: Glen Otero [facility] Therapist's Date of Therapist Appointment: 02/12/20 Time of Therapist Appointment: 4pm Therapy Appointment Comment: Telehealth Therapist Release of Information: Obtained, Reviewed and Signed Machinery Rigger Name of Machinery Rigger: Pily Thomas Phone Number for Machinery Rigger: [phone] Date of Appointment with Machinery Rigger: 01/30/20 Time of Appointment with Machinery Rigger: 1:00 p.m. Case Management Appointment Comment: Will follow up with you Machinery Rigger Release of Information: Obtained, Reviewed and Signed Post Discharge Appointments Primary Care Physician Name Of Family Doctor: [facility] - Dr Davis Primary Care Provider Appointment Comment: Please follow up as needed Primary Care Release of Information: Obtained, Reviewed and Signed Partial or Psych Rehab Name of Partial or Psych Rehab: [facility] Psych Rehab Phone Number of Partial or Psych Rehab: [phone] Partial or Psych Rehab Appointment Comment: Return to your regular schedule Smoking Cessation Counseling Tobacco Cessation Medication Prescribed at Discharge: Offered & Pt Refused Contact Information Discharge Discharge Address: [address] [place] [id number] Contact Information Comment: Miranda Tang CRErick Discharge Plan Discharge Items Patient Disposition: Personal Halfway Reason For Visit: Bipolar disorder Discharge Diagnosis: Bipolar disorder type I Activity: Per Instructions section Driving/Machine Use: No driving until cleared by your outpatient physician. Non-emergency contact: Psychiatrist, Therapist and Glove Boarder Call non-emergency contact if: you have any medication questions and your symptoms worsen Follow-up/Referrals: Yovany Davis MD [Primary Care Provider] - Diet: Regular Addtl Attending Provider Instructions: SPECIAL CARE INSTRUCTIONS: 1. Follow through with your scheduled aftercare appointments. If unable to keep an appointment, please call to reschedule. 2. Take your medication only as prescribed. Medication should not be changed or stopped without the approval of your doctor. In the event of worsening symptoms or concerns about side effects, contact your doctor immediately. 3. Utilize new healthy coping skills, anger management skills, and stress management skills learned during your hospitalization. Journal feelings and process them with a support person. Identify stressors or situations that may result in relapse, deterioration or inappropriate behaviors and develop a plan to deal with those issues. 4. If your coping skills are ineffective and you are in crisis, contact your outpatient providers for direction. If unable to reach your providers, please call the [facility] CRISIS LINE AT , go to the [facility] walk-in center at [address], [address], [place], or go to the closest Emergency Room. 5. Avoid alcohol and un-prescribed drugs. 6. You have been provided with the Mental Health Advance Directives Pamphlet for your review. AFTERCARE APPOINTMENTS: * Please call your insurance company prior to your scheduled appointment to confirm your aftercare providers are covered. Take your insurance information to your appointments. WHO TO CALL AND WHEN: Medical Emergencies: For questions or emergencies related to your hospital stay, please contact the Inpatient Behavioral Health Unit at [phone]. A packaging specialist is on-call 03/10 for the Behavioral Health Unit for emergencies At any time you feel your situation is an emergency, you may also call 911 immediately. Pending Studies at Discharge: No Stand-Alone Forms: My [employer], Smoking Cessation Skilled Items Patient informed of condition?: Yes DNR: No Discharge Level of Care: Other Communicable Disease: No Discharge Prognosis: Improving Lines: None Urinary Catheter: No Medications and DC Order Prescriptions: New lamotrigine [Lamictal] 25 mg Tablet 25 mg PO QAM Qty: 60 RF: 0 olanzapine 5 mg tablet 5 mg PO BID Qty: 60 RF: 0 Continued hydroxyzine HCl 25 mg tablet 50 mg PO HS RF: 0 multivitamin Tablet 1 tab PO QAM RF: 0 atorvastatin [Lipitor] 20 mg tablet 20 mg PO QAM RF: 0 mirtazapine 15 mg tablet 15 mg PO HS RF: 0 Austedo 12 mg tablet 12 mg PO BID RF: 0 Changed lorazepam 1 mg tablet 0.5 mg PO TID Qty: 0 RF: 0 Discontinued lamotrigine 200 mg tablet 200 mg PO QAM RF: 0 olanzapine 5 mg tablet 5 mg PO HS RF: 0 Discharge Orders: Discharge Order (Routine); Ordered 01/30/20 Ordered By: Chante Bermudez Admission Data Admit Date/Time: 01/21/20 15:48 Attending Provider: Chante Bermudez Admit Provider: Chante Bermudez Primary Care Provider: Yovany Davis Coding Level of Care Code 26404 D/C day mgmt > 30 min Diagnoses Confusion R41.0 Bipolar disorder F31.2 Active/Remission status: currently active Current bipolar episode type: manic Current episode severity: severe Psychotic features: with psychotic features Anxiety F41.9 Chronic pain G89.29 Chronic pain type: other chronic pain Incontinence of urine R32
== END 2020-01-30 11:57 | disposition home or self-care (01) | DRG 885 ==
LOC: ED 10:36 → 3S 15:48

== ENCOUNTER 2020-02-05 21:37 | Inpatient (IN) ==
--- NOTE | 2020-02-05 21:58 | Emergency Department Note ---
Impression & Plan Anxiety, Depressed mood, Encounter for smoking cessation counseling ED Provider Note NAME: ALINA STONE AGE: 59 SEX: F : 1960 ARRIVES VIA: Ambulance INFORMANT: Patient, ED PROVIDER(S): Oswaldo Paris MD Chief Complaint: Concern for mental health HPI: Patient does present with concern for her wellness. The patient does live with a roommate and was sent in due to concern as she may not be taking appr opriate care of herself. The patient states that she is ashamed for being here. The patient has had some depressed mood and anxiety. Patient denies any SI, HI, or AVH. The patient states her appetite has been up and down and that her sleep is been to little and believes this is more related to anxiety. Patient states that her and her roommate have not been getting along as well and the patient is concerned about her personal finances. Patient denies any fevers, chills, chest pains or shortness of breath. The patient denies any alcohol or drug use but does use tobacco. ROS: See HPI for pertinent positives and negatives. A total of 10 systems were reviewed and otherwise negative. Past medical history: See below Surgical history: See below Social history: See below Physical Exam: GENERAL: Wearing a mask. NAD, non-toxic. EYE EXAM: Normal conjunctiva. PERRL, no anisocoria and EOM's grossly intact w/o pain. NECK: Supple, no nuchal rigidity, no adenopathy, non-tender. No signs of meningismus. LUNGS: Clear to auscultation. Normal chest wall mechanics. HEART: NSR, no MRG. ABDOMEN: Abdomen soft, non-tender, normo-active bowel sounds, no masses, no rebound or guarding. BACK: No CVA TTP. SKIN: No rashes and no bruising. UPPER EXTREMITIES: Upper extremities are grossly normal. LOWER EXTREMITIES: Grossly normal, no edema. NEURO EXAM: A&O x3, cranial nerves II-XII grossly intact, normal speech, moves all 4 extremities on command w/o issue. Differential diagnoses: Mood disorder, infection, hypoglycemia, electrolyte abnormalities, cardiac sources, intracerebral event, toxicologic, trauma, neurologic, as well as other pathologies. Course: Patient was seen and evaluated the bedside. Full history physical exam was performed. MDM: Patient did have blood work completed. The patient was deemed medically cleared. The patient did have questionable signs of bacteria in the urine but the patient denied any urinary symptoms back pain or increasing frequency. Patient states that she has had prior UTIs and she currently does not have symptoms. Urine culture was reflexed. The patient's had already taken her evening medications. A referral was made to 3 S. Patient was signed out to Dr. Moyer pending evaluation and disposition. I counseled patient on smoking cessation for 3 minutes. Treatment options discussed and resources provided. Patient was receptive. Past Med/Surg History Medical History (Updated 02/05/20 @ 23:41 by Oswaldo Paris MD) Acute anxiety Bipolar disorder Depression Emphysema lung Paranoia (04/02/13) Restless legs syndrome Scoliosis Surgical History Hx of spinal surgery Family History Other Heart disease Hypertension Social History Smoking Status: Current every day smoker Tobacco Type: Cigarettes Hx Alcohol Use: No Hx Substance Use: Yes Preferred Language: Ecuadorean Communication Ability: Effective Visual Impairment: No Limitations Hearing Ability: Normal Line Clearance Foreman Required: No Beliefs That Will Affect Care: Spiritual Spiritual Healthcare Practices: patient believes in God/Piyush marital status: current occupational status: unemployed Feels Safe at Home: Yes and Declines to Answer Assistive Devices: Glasses Allergies Allergies Allergy/AdvReac Type Severity Reaction Status Date / Time risperidone Allergy Unknown CONFUSED Verified 01/21/20 16:25 Home Meds Home Medications Medication Instructions Recorded Confirmed atorvastatin [Lipitor] 20 mg PO QAM 12/04/17 01/21/20 multivitamin 1 tab PO QAM 12/04/17 01/21/20 hydroxyzine HCl 50 mg PO HS 12/23/19 01/21/20 Austedo 12 mg PO BID 12/24/19 01/21/20 mirtazapine 15 mg PO HS 12/24/19 01/21/20 Previous Rx's Medication Instructions Recorded lamotrigine [Lamictal] 25 mg PO QAM #60 tab 01/30/20 lorazepam 0.5 mg PO TID #0 tab 01/30/20 olanzapine 5 mg PO BID #60 tab 01/30/20 Results & Data (ED) Vital Signs Vital Signs - 24 hr 02/05/20 21:52 02/05/20 23:33 Temperature 37.0 C Temperature Source Oral Pulse Rate 68 Pulse Rate [Finger] 90 Respiratory Rate 20 18 Respiratory Effort / Characteristics Non-Labored Spontaneous Respiratory Depth Normal Blood Pressure 133/100 Blood Pressure [Right Arm] 107/75 Blood Pressure Mean 111 Blood Pressure Mean [Right Arm] 85 Pulse Oximetry 96 97 Oxygen Delivery Method Room Air Sepsis Recent Fever Within 48 Hours No Sepsis New/Unexplained Change in Mental Status N/A Sepsis Action Taken by Nursing No Action Required Home Medications Current Medication List: was personally reviewed by me Laboratory Data Attestation: I reviewed the patient's lab results. Result diagrams: 02/05/20 22:04 02/05/20 22:04 Lab Results 02/05/20 02/05/20 02/05/20 Range/Units 21:57 21:57 22:04 WBC 12.67 H (4.8-10.8) K/uL RBC 4.90 (4.2-5.4) M/uL Hgb 16.0 (12.0-16.0) g/dL Hct 45.8 (37-47) % MCV 93.5 (80-100) fL MCH 32.7 (25-34) pg MCHC 34.9 (32-36) g/dL RDW Std Deviation 44.3 (36.4-46.3) fL RDW Coeff of Haley 13.0 (11.5-14.5) % Plt Count 317 (130-400) K/uL MPV 10.0 (7.4-10.4) fL Immature Gran % (Auto) 0.2 % Neut % (Auto) 72.9 % Lymph % (Auto) 19.2 % [place] % (Auto) 6.6 % Eos % (Auto) 0.8 % Baso % (Auto) 0.3 % Neut # (Auto) 9.23 H (1.4-6.5) K/uL Lymph # (Auto) 2.43 (1.2-3.4) K/uL [place] # (Auto) 0.84 H (0.11-0.59) K/uL Eos # (Auto) 0.10 (0-0.5) K/uL Baso # (Auto) 0.04 (0-0.2) K/uL Immature Gran # (Auto) 0.03 H (0.00-0.02) K/uL Sodium (136-145) mmol/L Potassium (3.5-5.1) mmol/L Chloride (98-107) mmol/L Carbon Dioxide (21-32) mmol/L Anion Gap (3-11) BUN (7-18) mg/dl Creatinine (0.6-1.2) mg/dl Est Cr Clr Drug Dosing ml/min Est GFR ( Amer) Est GFR (Non-Af Amer) BUN/Creatinine Ratio (10-20) Glucose (70-99) mg/dl Calcium (8.5-10.1) mg/dl Total Bilirubin (0.2-1) mg/dl AST (15-37) U/L ALT (12-78) U/L Alkaline Phosphatase (45-117) U/L Total Protein (6.4-8.2) gm/dl Albumin (3.4-5.0) gm/dl Globulin (2.5-4.0) gm/dl Albumin/Globulin Ratio (0.9-2) TSH (0.300-4.500) uIu/ml Urine Color Yellow Urine Appearance Clear (Clear) Urine pH 6.0 (4.5-7.5) Ur Specific [place] 1.010 (1.000-1.030) Urine Protein Negative (Negative) Urine Glucose (UA) Negative (Negative) Urine Ketones Negative (Negative) Urine Blood Trace H (Negative) Urine Nitrite Negative (Negative) Urine Bilirubin Negative (Negative) Urine Urobilinogen Negative (Negative) Ur Leukocyte Esterase 1+ H (Negative) Urine RBC 0-4 (0-4) /hpf Urine WBC 5-10 H (0-5) /hpf Ur Epithelial Cells 10-20 H (0-5) /lpf Urine Bacteria 1+ H (Negative) Urine Opiates Screen Neg (Neg) Ur Methadone, Qual Neg (Neg) Urine Barbiturates Neg (Neg) Ur Phencyclidine (PCP) Neg (Neg) U Amphetamin/Meth Scrn Neg (Neg) MDMA (Ecstasy) Screen Neg (Neg) U Benzodiazepines Scrn Neg (Neg) Ur Cocaine Metabolite Neg (Neg) U Marijuana (THC) Screen Neg (Neg) Ethyl Alcohol mg/dL (0-3) mg/dl SARS-CoV-2 Ag (Rapid) (Negative) 02/05/20 02/05/20 02/05/20 Range/Units 22:04 22:04 Unknown WBC (4.8-10.8) K/uL RBC (4.2-5.4) M/uL Hgb (12.0-16.0) g/dL Hct (37-47) % MCV (80-100) fL MCH (25-34) pg MCHC (32-36) g/dL RDW Std Deviation (36.4-46.3) fL RDW Coeff of Haley (11.5-14.5) % Plt Count (130-400) K/uL MPV (7.4-10.4) fL Immature Gran % (Auto) % Neut % (Auto) % Lymph % (Auto) % [place] % (Auto) % Eos % (Auto) % Baso % (Auto) % Neut # (Auto) (1.4-6.5) K/uL Lymph # (Auto) (1.2-3.4) K/uL [place] # (Auto) (0.11-0.59) K/uL Eos # (Auto) (0-0.5) K/uL Baso # (Auto) (0-0.2) K/uL Immature Gran # (Auto) (0.00-0.02) K/uL Sodium 138 (136-145) mmol/L Potassium 3.6 (3.5-5.1) mmol/L Chloride 108 H (98-107) mmol/L Carbon Dioxide 23 (21-32) mmol/L Anion Gap 7.0 (3-11) BUN 19 H (7-18) mg/dl Creatinine 0.82 (0.6-1.2) mg/dl Est Cr Clr Drug Dosing 60.2 ml/min Est GFR ( Amer) 90.8 Est GFR (Non-Af Amer) 78.3 BUN/Creatinine Ratio 23.0 H (10-20) Glucose 103 H (70-99) mg/dl Calcium 9.5 (8.5-10.1) mg/dl Total Bilirubin 1.0 (0.2-1) mg/dl AST 20 (15-37) U/L ALT 44 (12-78) U/L Alkaline Phosphatase 100 (45-117) U/L Total Protein 8.0 (6.4-8.2) gm/dl Albumin 4.3 (3.4-5.0) gm/dl Globulin 3.7 (2.5-4.0) gm/dl Albumin/Globulin Ratio 1.2 (0.9-2) TSH 1.050 (0.300-4.500) uIu/ml Urine Color Urine Appearance (Clear) Urine pH (4.5-7.5) Ur Specific [place] (1.000-1.030) Urine Protein (Negative) Urine Glucose (UA) (Negative) Urine Ketones (Negative) Urine Blood (Negative) Urine Nitrite (Negative) Urine Bilirubin (Negative) Urine Urobilinogen (Negative) Ur Leukocyte Esterase (Negative) Urine RBC (0-4) /hpf Urine WBC (0-5) /hpf Ur Epithelial Cells (0-5) /lpf Urine Bacteria (Negative) Urine Opiates Screen (Neg) Ur Methadone, Qual (Neg) Urine Barbiturates (Neg) Ur Phencyclidine (PCP) (Neg) U Amphetamin/Meth Scrn (Neg) MDMA (Ecstasy) Screen (Neg) U Benzodiazepines Scrn (Neg) Ur Cocaine Metabolite (Neg) U Marijuana (THC) Screen (Neg) Ethyl Alcohol mg/dL < 3.0 (0-3) mg/dl SARS-CoV-2 Ag (Rapid) Negative (Negative) Discharge Plan Visit Data Chief Complaint: Mental Health Evaluation Stated Complaint: MENTAL HEALTH ED Provider: Oswaldo Paris Discharge Problem: Anxiety, Depressed mood, Encounter for smoking cessation counseling Forms Stand Alone Forms: My [facility], Suicide Prevention Resources Prescriptions Prescriptions: No Action hydroxyzine HCl 25 mg tablet 50 mg PO HS RF: 0 lamotrigine [Lamictal] 25 mg Tablet 25 mg PO QAM Qty: 60 RF: 0 lorazepam 1 mg tablet 0.5 mg PO TID Qty: 0 RF: 0 olanzapine 5 mg tablet 5 mg PO BID Qty: 60 RF: 0 multivitamin Tablet 1 tab PO QAM RF: 0 atorvastatin [Lipitor] 20 mg tablet 20 mg PO QAM RF: 0 mirtazapine 15 mg tablet 15 mg PO HS RF: 0 Austedo 12 mg tablet 12 mg PO BID RF: 0
[2020-02-05 22:08] LABS: Appearance Urine Clear (Clear); Bilirubin Urine Negative (Negative); Blood Urine Trace (Negative); Color Urine Yellow; Glucose Urine UA Negative (Negative); Ketones Urine Negative (Negative); Leukocyte Esterase Urine 1+ (Negative); Nitrite Urine Negative (Negative); Protein Urine Negative (Negative); Urobilinogen Urine Negative (Negative)
[2020-02-05 22:28] LABS: Bacteria Urine 1+ (Negative); RBC Urine 0-4 /hpf (0-4)
[2020-02-05 22:49] LABS: Amphetamines+Metham, Urine Neg (Neg); Barbiturates, Urine Neg (Neg); Benzodiazepine, Urine Neg (Neg); Cocaine, Urine Neg (Neg); MDMA (Ecstacy), Urine Neg (Neg); Methadone, Urine Neg (Neg); Opiate, Urine Neg (Neg); Phencyclidine, Urine Neg (Neg)
[2020-02-05 22:57] LABS: Basophils # (auto) 0.04 K/uL (0-0.2); Basophils % (auto) 0.3 %; Eosinophils % (auto) 0.8 %; Hematocrit (blood only) 45.8 % (37-47); Immature Granulocytes # (auto) 0.03 K/uL (0.00-0.02); Immature Granulocytes % (auto) 0.2 %; Lymphocytes # (auto) 2.43 K/uL (1.2-3.4); Lymphocytes % (auto) 19.2 %; Mean Corpuscular Hemoglobin 32.7 pg (25-34); Mean Corpuscular Hgb Conc 34.9 g/dL (32-36); Mean Corpuscular Volume 93.5 fL (80-100); Monocytes # (auto) 0.84 K/uL (0.11-0.59); Monocytes % (auto) 6.6 %; Neutrophils # (auto) 9.23 K/uL (1.4-6.5); Neutrophils % (auto) 72.9 %; Platelet Count 317 K/uL (130-400); RDW Standard Deviation 44.3 fL (36.4-46.3); White Blood Count 12.67 K/uL (4.8-10.8)
[2020-02-05 23:20] LABS: Albumin Level 4.3 gm/dl (3.4-5.0); Calcium 9.5 mg/dl (8.5-10.1); Creatinine Clr Calc Pharmacy 60.2 ml/min; Est GFR (African American) 90.8; Est GFR (Non-African American) 78.3; Potassium 3.6 mmol/L (3.5-5.1)
[2020-02-05 23:30] LABS: Albumin Globulin Ratio 1.2 (0.9-2); Globulin 3.7 gm/dl (2.5-4.0); Thyroid Stimulating Hormone 1.05 uIu/ml (0.300-4.500)
[2020-02-05 23:41] LABS: Acetaminophen < 2 ug/ml (10-30)
[2020-02-05 23:42] LABS: Salicylate 3.1 mg/dl (2.8-20)
--- NOTE | 2020-02-05 23:49 | Emergency Department Note ---
ED Visit Note ED Physician Sign Out Note: 59 yr old female history of bipolar disorder arrives for evaluation of inability to care for self. She is willing psychiatric admission with pending placement. Medically cleared and signed out to me by Dr Paris pending placement. Evening medications ordered and she took them without issue. She was accepted to [address] [place] [address] and brought up there without issues. Ed Moyer MD
[2020-02-06] MEDS ORDERED: ATIVAN 1MG HOMEPACK PO SCH (01:35)
[2020-02-06] MEDS ORDERED: OLANZapine 5 MG TABLET PO SCH (01:35)
[2020-02-06] MEDS ORDERED: LORazepam 0.5 MG TAB PO SCH (01:40)
[2020-02-06] MEDS ORDERED: NICOTINE POLACRILEX 2 MG GUM MT PRN (02:09)
[2020-02-06] MEDS ORDERED: SODIUM CHLORIDE 0.65% NA SOLN 45 ML (OCEAN) PRN (02:09)
[2020-02-06] MEDS ORDERED: BISMUTH SUBSALICYLATE LIQD 236 ML PO PRN (02:09)
[2020-02-06] MEDS ORDERED: MAGNESIUM HYDROXIDE SUSP 30 ML UDC PO PRN (02:09)
[2020-02-06] MEDS ORDERED: MIRTAZAPINE TAB 15 MG TAB PO ONE (03:05)
[2020-02-06] MEDS: hydrOXYzine HCl 25 MG TAB PO PRN (05:23)
[2020-02-06] MEDS: ACETAMINOPHEN 325 MG TAB PO PRN ×2 (05:23→13:28)
[2020-02-06] MEDS: NICOTINE 7 MG/24 HR TDSY TD SCH (08:06)
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
[2020-02-06] MEDS ORDERED: MULTIVITAMIN TAB PO SCH (09:00)
[2020-02-06] MEDS ORDERED: ATORVASTATIN 20 MG TAB PO SCH (09:00)
[2020-02-06] MEDS ORDERED: lamoTRIgine 25 MG TAB PO SCH (09:00)
[2020-02-06] MEDS: LORazepam 0.5 MG TAB PO SCH ×3 (09:37→20:33)
[2020-02-06] MEDS: ATORVASTATIN 20 MG TAB PO SCH (09:38)
[2020-02-06] MEDS: MULTIVITAMIN TAB PO SCH (09:38)
[2020-02-06] MEDS: OLANZAPINE 2.5 MG TAB PO SCH ×2 (10:08→20:34)
[2020-02-06] MEDS ORDERED: lamoTRIgine 25 MG TAB PO ONE (13:45)
[2020-02-06] MEDS ORDERED: [UNRECOGNIZED DRUG - REMARK] SCH (16:00)
[2020-02-06] MEDS: AUSTEDO 12 MG PO SCH (20:36)
[2020-02-06] MEDS ORDERED: MIRTAZAPINE TAB 15 MG TAB PO SCH (22:00)
[2020-02-07] MEDS: ACETAMINOPHEN 325 MG TAB PO PRN ×2 (03:50→12:30)
[2020-02-07] MEDS: hydrOXYzine HCl 25 MG TAB PO PRN ×2 (03:52→16:46)
[2020-02-07] MEDS: lamoTRIgine 25 MG TAB PO SCH (08:16)
[2020-02-07] MEDS: MULTIVITAMIN TAB PO SCH (08:16)
[2020-02-07] MEDS: ATORVASTATIN 20 MG TAB PO SCH (08:16)
[2020-02-07] MEDS: OLANZAPINE 2.5 MG TAB PO SCH (08:16)
[2020-02-07] MEDS: LORazepam 0.5 MG TAB PO SCH ×3 (08:16→20:38)
[2020-02-07] MEDS: NICOTINE 7 MG/24 HR TDSY TD SCH (08:18)
[2020-02-07] MEDS ORDERED: lamoTRIgine 25 MG TAB PO SCH (09:00)
--- NOTE | 2020-02-07 09:06 | Psychiatric Progress Note ---
Date of Service February 07, 2020 Impression / Recommendations Impression 59 yo female with longstanding hx of bipolar disorder, presents for readmission from longterm for ongoing expanisve mood/uatsdin preoccupation and inability to care for self. 02/06--improving, calmer but some increase in tremor today following increase in Zyprexa yesterday. (1) Bipolar disorder: 02/05 The patient was admitted to the [facility] on q15 min checks (behavioral with suicide precautions) for safety. The patient will participate in group, recreational, and milieu therapies and will be offered additional individual and family sessions as clinically appropriate. Start Zyprexa titration and continue Lamictal retrial as per [facility]. with TID Ativan for anxiety related to delusions. It may be appropriate to transition to a long acting injectable prior to discharge, would have to be Abilify. Will defer until can be discussed with [facility] provider depending on length of stay as appears more behaviorally controlled than last stay. MNPR for now as hx of disrobing in hospital and longterm. 02/06 behaviorally controlled on unit compared to last stay, med compliant, shift Zyprexa toward bedtime and dose hs med earlier so less pm breakthrough at longterm. (2) Incontinence of urine: 02/05--monitor, UC pending. 02/06--UC still pending, remains asymptomatic, Oxybutynin prn as available at longterm, mainly incontinent and poor boundaries (reported as asking for hugs) when manic. Inventory Assets Strengths: accepting of hospitalization, has longterm/community supports Needs: improve insight Risk Factors Assessment : Yes Do You Have Access To A Gun?: No Mental Health Diagnoses: Yes Substance Use Disorders: No Previous Psychiatric Hospitalization: Yes Protective Factors Assessment Responsible for Young Children: No Employed: No Good Rapport with Provider: Yes Interval History Chief Complaint "I'm just tired, more shaky today". Review of Systems Sleep Information Total Hours of Sleep: 6 Meal Information Percent Meal Consumed - Breakfast: 80 Percent Meal Consumed - Lunch: 100 Percent Meal Consumed - Dinner: 90 Subjective Subjective Patient was seen & assessed and interval progress reviewed with nursing. came out of room wearing only shirt and brief at 4 am. She recalls, denies confusion. Asked for help with menu today due to increase in hand tremor, foot movements too but gait is steady and did resume non-formulary medication. Slept 6 hrs, d enies related to uatsdin preoccupations and she is redirectible around angels at this time. [facility] staff confirm roommate has challenging personality and patient feels she is being "blamed for everything". Physical Exam Psychiatric Orientation: alert Apperance: appropriately groomed Eye Contact: good eye contact Motor Behavior: steady gait and station Speech: normal rate/rhythm/volume of speech Affect: + anxious affect Mood: + anxious mood Thought Process: + circumstantial thought process Thought Content: + delusions Suicidal Thoughts: denies suicidal thoughts Homicidal Thoughts: denies homicidal thoughts Hallucinations: no auditory hallucinations and no visual hallucinations Cognition: attention grossly intact and language grossly intact Estimated Intelligence: consistent with education level Insight: + poor insight Judgement: + poor judgement Vital Signs (Past 24 Hours) Last Vital Signs Temp 36.3 C L 02/07/20 06:10 Pulse 76 02/07/20 06:10 Resp 18 02/07/20 06:10 BP 118/78 02/07/20 06:11 Pulse Ox 97 02/05/20 23:33 Results & Data ([facility]) Current Inpatient Medications Current Inpatient Medications: Current Inpatient Medications Acetaminophen (Acetaminophen 325 Mg Tab) 650 mg PO Q4H PRN PRN Reason: Headache or Minor Fever Stop: 03/07/20 02:08 Last Admin: 02/07/20 03:50 Dose: 650 mg Documented by: Al Hydrox/Mg Hydrox/Simethicone (Aluminum/Magnesium Susp 30 Ml Udc) 30 ml PO Q4H PRN PRN Reason: GI Upset Stop: 03/07/20 02:08 Atorvastatin Calcium (Atorvastatin 20 Mg Tab) 20 mg PO QAM SHUN Stop: 03/07/20 08:59 Last Admin: 02/07/20 08:16 Dose: 20 mg Documented by: Benztropine Mesylate (Benztropine Mesylate 0.5 Mg Tab) 0.5 mg PO Q6 PRN PRN Reason: Muscle Spasm Stop: 03/07/20 10:01 Bismuth Subsalicylate (Bismuth Subsalicylate Liqd 236 Ml) 15 ml PO PRN PRN PRN Reason: Loose Stool Stop: 03/07/20 02:08 Deutetrabenazine (Pt's Own Med: Austedo 12mg) 1 ea PO BID@1200,2100 COUNT INCLUDES THE [facility] Stop: 03/07/20 20:59 Last Admin: 02/06/20 20:36 Dose: 1 ea Documented by: Hydroxyzine HCl (Hydroxyzine Hcl 25 Mg Tab) 50 mg PO HSZ PRN PRN Reason: Insomnia Stop: 03/07/20 02:08 Hydroxyzine HCl (Hydroxyzine Hcl 25 Mg Tab) 25 mg PO Q4H PRN PRN Reason: Anxiety Stop: 03/07/20 02:08 Last Admin: 02/07/20 03:52 Dose: 25 mg Documented by: Lamotrigine (Lamotrigine 25 Mg Tab) 50 mg PO QAM COUNT INCLUDES THE [facility] Stop: 03/08/20 08:59 Last Admin: 02/07/20 08:16 Dose: 50 mg Documented by: Lorazepam (Lorazepam 0.5 Mg Tab) 0.5 mg PO TID COUNT INCLUDES THE [facility] Stop: 03/07/20 08:59 Last Admin: 02/07/20 08:16 Dose: 0.5 mg Documented by: Magnesium Hydroxide (Magnesium Hydroxide Susp 30 Ml Udc) 30 ml PO DAILY PRN PRN Reason: Constipation Stop: 03/07/20 02:08 Mirtazapine (Mirtazapine Tab 15 Mg Tab) 15 mg PO TODAY@ COUNT INCLUDES THE [facility] Stop: 03/08/20 19:59 Miscellaneous (Remove Nicoderm Patch) 1 ea N/A DAILY@0859 COUNT INCLUDES THE [facility] Stop: 03/07/20 08:58 Last Admin: 02/07/20 08:18 Dose: 1 ea Documented by: Multivitamins (Multivitamin Tab) 1 tab PO QAM COUNT INCLUDES THE [facility] Stop: 03/07/20 08:59 Last Admin: 02/07/20 08:16 Dose: 1 tab Documented by: Nicotine (Nicotine 7 Mg/24 Hr Tdsy) 7 mg TD QAM COUNT INCLUDES THE [facility] Stop: 03/07/20 08:59 Last Admin: 02/07/20 08:18 Dose: 7 mg Documented by: Nicotine Polacrilex (Nicotine Polacrilex 2 Mg Gum) 1 piece MT PRN PRN PRN Reason: Nicotine Withdrawal Stop: 03/07/20 02:08 Olanzapine (Olanzapine 10 Mg Tab) 10 mg PO TODAY@ COUNT INCLUDES THE [facility] Stop: 03/08/20 19:59 Olanzapine (Olanzapine 5 Mg Tablet) 5 mg PO QAM SHUN Stop: 03/09/20 08:59 Oxybutynin Chloride (Oxybutynin Chloride 5 Mg Tab) 5 mg PO BID PRN PRN Reason: incontinence Stop: 03/08/20 08:57 Sodium Chloride (Sodium Chloride 0.65% Na Soln 45 Ml ([place])) 1 - 2 sprays NA PRN PRN PRN Reason: Nasal Dryness/Congestion Stop: 03/07/20 02:08 Mental Health & Subst Abuse Tx Therapist Name of Therapist: Glen Treadwell Date of Therapist Appointment: 02/12/20 Sole Filler Name of Sole Filler: Gabriella Song [facility] Post Discharge Appointments Primary Care Physician Name Of Family Doctor: Dr. Davis (1) Bipolar disorder Active/Remission status: currently active Current bipolar episode type: manic Current episode severity: severe Psychotic features: with psychotic features Qualified Code(s): F31.2 - Bipolar disorder, current episode manic severe with psychotic features (2) Incontinence of urine Urinary Incontinence type: unspecified incontinence Qualified Code(s): R32 - Unspecified urinary incontinence
[2020-02-07] MEDS: AUSTEDO 12 MG PO SCH ×2 (12:31→20:38)
[2020-02-07] MEDS: OXYBUTYNIN CHLORIDE 5 MG TAB PO PRN ×2 (13:36→20:39)
[2020-02-07] MEDS ORDERED: OLANZapine 10 MG TAB PO SCH (20:00)
[2020-02-07] MEDS: MIRTAZAPINE TAB 15 MG TAB PO SCH (20:39)
--- NOTE | 2020-02-08 08:43 | Psychiatric Progress Note ---
Date of Service February 08, 2020 Impression / Recommendations Impression 59 yo female with longstanding hx of bipolar disorder, presents for readmission from jail for ongoing expanisve mood/shinto preoccupation and inability to care for self. 02/07--unchanged Plan: continue current meds and treatment plan (Zyprexa is shifting toward bedtime). Inventory Assets Strengths: accepting of hospitalization, has jail/community supports Needs: improve insight Risk Factors Assessment : Yes Do You Have Access To A Gun?: No Mental Health Diagnoses: Yes Substance Use Disorders: No Previous Psychiatric Hospitalization: Yes Protective Factors Assessment Responsible for Young Children: No Employed: No Good Rapport with Provider: Yes Interval History Chief Complaint "I feel like I'm doing too much". Review of Systems Sleep Information Total Hours of Sleep: 5 Meal Information Percent Meal Consumed - Breakfast: 25 Percent Meal Consumed - Lunch: 100 Percent Meal Consumed - Dinner: 100 Subjective Subjective Patient was seen & assessed and interval progress reviewed with nursing and social work. Took Vistaril and ditropan prns yesterday. med compliant. minimal sedation. Seems mildly confused at times per staff but pleasant and not openly expressing delusions. Pinpoint growth on UC, reincubating. Remains asymptomatic. Complains of daytime sedation to point feels can't connect her words and thoughts but otherwise not disorganized. Physical Exam Psychiatric Orientation: alert Apperance: appropriately groomed Eye Contact: + fair eye contact Motor Behavior: + tremor Speech: normal rate/rhythm/volume of speech Affect: + constricted affect Mood: + anxious mood Thought Process: + circumstantial thought process Thought Content: no delusions Suicidal Thoughts: denies suicidal thoughts Homicidal Thoughts: denies homicidal thoughts Hallucinations: no auditory hallucinations and no visual hallucinations Cognition: language grossly intact Estimated Intelligence: consistent with education level Insight: + poor insight Judgement: + poor judgement Vital Signs (Past 24 Hours) Last Vital Signs Temp 36.5 C 02/08/20 06:24 Pulse 72 02/08/20 06:24 Resp 18 02/08/20 06:24 BP 123/84 02/08/20 06:24 Pulse Ox 97 02/05/20 23:33 Results & Data ([facility]) Current Inpatient Medications Current Inpatient Medications: Current Inpatient Medications Acetaminophen (Acetaminophen 325 Mg Tab) 650 mg PO Q4H PRN PRN Reason: Headache or Minor Fever Stop: 03/07/20 02:08 Last Admin: 02/07/20 12:30 Dose: 650 mg Documented by: Al Hydrox/Mg Hydrox/Simethicone (Aluminum/Magnesium Susp 30 Ml Udc) 30 ml PO Q4H PRN PRN Reason: GI Upset Stop: 03/07/20 02:08 Atorvastatin Calcium (Atorvastatin 20 Mg Tab) 20 mg PO QAM [facility] Stop: 03/07/20 08:59 Last Admin: 02/07/20 08:16 Dose: 20 mg Documented by: Benztropine Mesylate (Benztropine Mesylate 0.5 Mg Tab) 0.5 mg PO Q6 PRN PRN Reason: Muscle Spasm Stop: 03/07/20 10:01 Bismuth Subsalicylate (Bismuth Subsalicylate Liqd 236 Ml) 15 ml PO PRN PRN PRN Reason: Loose Stool Stop: 03/07/20 02:08 Deutetrabenazine (Pt's Own Med: Austedo 12mg) 1 ea PO BID@1200,2100 [facility] Stop: 03/07/20 20:59 Last Admin: 02/07/20 20:38 Dose: 1 ea Documented by: Hydroxyzine HCl (Hydroxyzine Hcl 25 Mg Tab) 50 mg PO HSZ PRN PRN Reason: Insomnia Stop: 03/07/20 02:08 Hydroxyzine HCl (Hydroxyzine Hcl 25 Mg Tab) 25 mg PO Q4H PRN PRN Reason: Anxiety Stop: 03/07/20 02:08 Last Admin: 02/07/20 16:46 Dose: 25 mg Documented by: Lamotrigine ([facility]ine 25 Mg Tab) [facility] [place]: 03/08/20 08:59 Last Admin: 02/07/20 08:16 Dose: 50 mg Documented by: Lorazepam (Lorazepam 0.5 Mg Tab) 0.5 mg PO TID [facility] Stop: 03/07/20 08:59 Last Admin: 02/07/20 20:38 Dose: 0.5 mg Documented by: Magnesium Hydroxide (Magnesium Hydroxide Susp 30 Ml Udc) 30 ml PO DAILY PRN PRN Reason: Constipation Stop: 03/07/20 02:08 Mirtazapine (Mirtazapine Tab 15 Mg Tab) 15 mg PO Q24H [facility] Stop: 03/08/20 19:59 Last Admin: 02/07/20 20:39 Dose: 15 mg Documented by: Miscellaneous (Remove Nicoderm Patch) 1 ea N/A DAILY@0859 [facility] Stop: 03/07/20 08:58 Last Admin: 02/07/20 08:18 Dose: 1 ea Documented by: Multivitamins (Multivitamin Tab) 1 tab PO QAM [facility] Stop: 03/07/20 08:59 Last Admin: 02/07/20 08:16 Dose: 1 tab Documented by: Nicotine (Nicotine 7 Mg/24 Hr Tdsy) 7 mg TD QAM [facility] Stop: 03/07/20 08:59 Last Admin: 02/07/20 08:18 Dose: 7 mg Documented by: Nicotine Polacrilex (Nicotine Polacrilex 2 Mg Gum) 1 piece MT PRN PRN PRN Reason: Nicotine Withdrawal Stop: 03/07/20 02:08 Last Admin: 02/07/20 10:06 Dose: 1 piece Documented by: Olanzapine (Olanzapine 10 Mg Tab) 10 mg PO Q24H [facility] Stop: 03/08/20 19:59 Last Admin: 02/07/20 20:38 Dose: 10 mg Documented by: Olanzapine (Olanzapine 5 Mg Tablet) 5 mg PO QAM [facility] Stop: 03/09/20 08:59 Oxybutynin Chloride (Oxybutynin Chloride 5 Mg Tab) 5 mg PO BID PRN PRN Reason: incontinence Stop: 03/08/20 08:57 Last Admin: 02/07/20 20:39 Dose: 5 mg Documented by: Sodium Chloride (Sodium Chloride 0.65% Na Soln 45 Ml ([place])) 1 - 2 sprays NA PRN PRN PRN Reason: Nasal Dryness/Congestion Stop: 03/07/20 02:08 Mental Health & Subst Abuse Tx Therapist Name of Therapist: Glen Treadwell Date of Therapist Appointment: 02/12/20 Electric Mule Operator Name of Electric Mule Operator: Gabriella Song BSLina Post Discharge Appointments Primary Care Physician Name Of Family Doctor: Dr. Davis
[2020-02-08] MEDS: ATORVASTATIN 20 MG TAB PO SCH (08:54)
[2020-02-08] MEDS: LORazepam 0.5 MG TAB PO SCH ×3 (08:54→20:10)
[2020-02-08] MEDS: MULTIVITAMIN TAB PO SCH (08:54)
[2020-02-08] MEDS: lamoTRIgine 25 MG TAB PO SCH (08:54)
[2020-02-08] MEDS: NICOTINE 7 MG/24 HR TDSY TD SCH (08:55)
[2020-02-08] MEDS ORDERED: OLANZapine 5 MG TABLET PO SCH (09:00)
[2020-02-08] MEDS: ACETAMINOPHEN 325 MG TAB PO PRN (10:59)
[2020-02-08] MEDS: AUSTEDO 12 MG PO SCH ×2 (12:15→20:10)
[2020-02-08] MEDS: BENZTROPINE MESYLATE 0.5 MG TAB PO PRN (13:27)
[2020-02-08] MEDS ORDERED: OLANZAPINE 2.5 MG TAB PO SCH (20:00)
[2020-02-08] MEDS: MIRTAZAPINE TAB 15 MG TAB PO SCH (20:10)
[2020-02-09] MEDS: BENZTROPINE MESYLATE 0.5 MG TAB PO PRN (07:52)
[2020-02-09] MEDS: LORazepam 0.5 MG TAB PO SCH (08:25)
[2020-02-09] MEDS: lamoTRIgine 25 MG TAB PO SCH (08:25)
[2020-02-09] MEDS: NICOTINE 7 MG/24 HR TDSY TD SCH (08:26)
[2020-02-09] MEDS: MULTIVITAMIN TAB PO SCH (08:26)
[2020-02-09] MEDS: ATORVASTATIN 20 MG TAB PO SCH (08:26)
[2020-02-09] MEDS ORDERED: ALBUTEROL HFA 8 GM INHALER INH PRN (10:37)
--- NOTE | 2020-02-09 10:45 | Psychiatric Progress Note ---
Date of Service February 09, 2020 Impression / Recommendations Impression 59 yo female with longstanding hx of bipolar disorder, presents for readmission from care home for ongoing expanisve mood/scientologist preoccupation and inability to care for self. 02/07--ongoing anxiety (1) Bipolar disorder: 02/05 The patient was admitted to the [facility]) on q15 min checks (behavioral with suicide precautions) for safety. The patient will participate in group, recreational, and milieu therapies and will be offered additional individual and family sessions as clinically appropriate. Start Zyprexa titration and continue Lamictal retrial as per [facility]. with TID Ativan for anxiety related to delusions. It may be appropriate to transition to a long acting injectable prior to discharge, would have to be Abilify. Will defer until can be discussed with [facility] provider depending on length of stay as appears more behaviorally controlled than last stay. MNPR for now as hx of disrobing in hospital and care home. 02/06 behaviorally controlled on unit compared to last stay, med compliant, shift Zyprexa toward bedtime and dose hs med earlier so less pm breakthrough at care home. 02/08--Zyprexa 15 mg po qhs. Needs phone meeting with care home re: transition plan given roommate conflicts. (2) Incontinence of urine: 02/05--monitor, UC pending. 02/06--UC still pending, remains asymptomatic, Oxybutynin prn as available at care home, mainly incontinent and poor boundaries (reported as asking for hugs) when manic. 02/08--UC skin arthur (3) Breathlessness: 02/08--unclear how much is anxiety vs chronic smoking, will try Klonopin 0.25 mg BID (am and early evening) in place of TID Ativan for better coverage, check pulse ox per shift as fluctuations could contribute to AMS. Patient is requesting to retry ventolin inhaler while here. Inventory Assets Strengths: accepting of hospitalization, has care home/community supports Needs: improve insight Risk Factors Assessment : Yes Do You Have Access To A Gun?: No Mental Health Diagnoses: Yes Substance Use Disorders: No Previous Psychiatric Hospitalization: Yes Protective Factors Assessment Responsible for Young Children: No Employed: No Good Rapport with Provider: Yes Interval History Chief Complaint "I feel so restless and anxious alot". Review of Systems Sleep Information Total Hours of Sleep: 7 Sleep Comments: new admit over night Meal Information Percent Meal Consumed - Breakfast: 50 Percent Meal Consumed - Lunch: 90 Percent Meal Consumed - Dinner: 95 Subjective Subjective Patient was seen & assessed and interval progress reviewed with nursing and social work. She denies pacing. Appears SOB when meeting even during times she is calmer, c/o smoker's dry couch, COVID neg on admission. No new symptoms. Unclear how much of her subjective c/o of anxiety is restless legs vs akathisia vs breathing related to chronic smoker. Pulse Ox per nurse 95% on RA just now. Feels breakthrough between doses of Ativan. Reviewed chart, Klonopin only d/c'd previously as on morphine concurrently. She is aware of fall risks. Tremor better with taking Zyprexa at hs. Physical Exam Psychiatric Orientation: alert Apperance: appropriately groomed Eye Contact: + fair eye contact Motor Behavior: + tremor some foot eversion. Speech: normal rate/rhythm/volume of speech Affect: + depressed affect Mood: + anxious mood Thought Process: + circumstantial thought process Thought Content: reality based without delusions Suicidal Thoughts: denies suicidal thoughts Homicidal Thoughts: denies homicidal thoughts Hallucinations: no auditory hallucinations and no visual hallucinations Cognition: recent memory grossly intact Estimated Intelligence: average estimated intelligence Insight: + poor insight Judgement: + poor judgement Vital Signs (Past 24 Hours) Last Vital Signs Temp 36.5 C 02/09/20 06:16 Pulse 73 02/09/20 06:16 Resp 20 02/09/20 06:16 BP 106/67 02/09/20 06:16 Pulse Ox 97 02/05/20 23:33 Results & Data ([facility]) Current Inpatient Medications Current Inpatient Medications: Current Inpatient Medications Acetaminophen (Acetaminophen 325 Mg Tab) 650 mg PO Q4H PRN PRN Reason: Headache or Minor Fever Stop: 03/07/20 02:08 Last Admin: 02/08/20 10:59 Dose: 650 mg Documented by: Al Hydrox/Mg Hydrox/Simethicone (Aluminum/Magnesium Susp 30 Ml Udc) 30 ml PO Q4H PRN PRN Reason: GI Upset Stop: 03/07/20 02:08 Albuterol (Albuterol Hfa 8 Gm Inhaler) 2 puffs INH Q4 PRN PRN Reason: Wheezing Stop: 03/10/20 10:36 Atorvastatin Calcium (Atorvastatin 20 Mg Tab) 20 mg PO QAM [facility] Stop: 03/07/20 08:59 Last Admin: 02/09/20 08:26 Dose: 20 mg Documented by: Benztropine Mesylate (Benztropine Mesylate 0.5 Mg Tab) 0.5 mg PO Q6 PRN PRN Reason: Muscle Spasm Stop: 03/07/20 10:01 Last Admin: 02/09/20 07:52 Dose: 0.5 mg Documented by: Bismuth Subsalicylate (Bismuth Subsalicylate Liqd 236 Ml) 15 ml PO PRN PRN PRN Reason: Loose Stool Stop: 03/07/20 02:08 Clonazepam (Clonazepam 0.25 Mg Tab) 0.25 mg PO BID17 [facility] Stop: 03/10/20 10:34 Deutetrabenazine (Pt's Own Med: Austedo 12mg) 1 ea PO BID@1200,2100 [facility] Stop: 03/07/20 20:59 Last Admin: 02/08/20 20:10 Dose: 1 ea Documented by: Hydroxyzine HCl (Hydroxyzine Hcl 25 Mg Tab) 50 mg PO HSZ PRN PRN Reason: Insomnia Stop: 03/07/20 02:08 Hydroxyzine HCl (Hydroxyzine Hcl 25 Mg Tab) 25 mg PO Q4H PRN PRN Reason: Anxiety Stop: 03/07/20 02:08 Last Admin: 02/07/20 16:46 Dose: 25 mg Documented by: Lamotrigine (Lamotrigine 25 Mg Tab) 50 mg PO QAM [facility] Stop: 03/08/20 08:59 Last Admin: 02/09/20 08:25 Dose: 50 mg Documented by: Magnesium Hydroxide (Magnesium Hydroxide Susp 30 Ml Udc) 30 ml PO DAILY PRN PRN Reason: Constipation Stop: 03/07/20 02:08 Mirtazapine (Mirtazapine Tab 15 Mg Tab) 15 mg PO Q24H [facility] Stop: 03/08/20 19:59 Last Admin: 02/08/20 20:10 Dose: 15 mg Documented by: Miscellaneous (Remove Nicoderm Patch) 1 ea N/A DAILY@0859 [facility] Stop: 03/07/20 08:58 Last Admin: 02/09/20 08:25 Dose: Not Given Documented by: Multivitamins (Multivitamin Tab) 1 tab PO QAM [facility] Stop: 03/07/20 08:59 Last Admin: 02/09/20 08:26 Dose: 1 tab Documented by: Nicotine (Nicotine 7 Mg/24 Hr Tdsy) 7 mg TD QAM [facility] Stop: 03/07/20 08:59 Last Admin: 02/09/20 08:26 Dose: 7 mg Documented by: Nicotine Polacrilex (Nicotine Polacrilex 2 Mg Gum) 1 piece MT PRN PRN PRN Reason: Nicotine Withdrawal Stop: 03/07/20 02:08 Last Admin: 02/07/20 10:06 Dose: 1 piece Documented by: Olanzapine (Olanzapine 5 Mg Tablet) 15 mg PO TODAY@ SHUN Stop: 03/10/20 19:59 Oxybutynin Chloride (Oxybutynin Chloride 5 Mg Tab) 5 mg PO BID PRN PRN Reason: incontinence Stop: 03/08/20 08:57 Last Admin: 02/07/20 20:39 Dose: 5 mg Documented by: Sodium Chloride (Sodium Chloride 0.65% Na Soln 45 Ml ([place])) 1 - 2 sprays NA PRN PRN PRN Reason: Nasal Dryness/Congestion Stop: 03/07/20 02:08 Mental Health & Subst Abuse Tx Psychiatrist Name of Psychiatrist: [facility] Duncan Borden Psychiatrist's Psychiatric Appointment Comment: Telehealth [facility] The[facility]'s Date of Therapist Appointment: 02/12/20 Therapy Appointment Comment: Telehealth Filament Cutter Name of Filament Cutter: [facility] [place] Phone Number for Filament Cutter: [phone] Date of Appointment with Filament Cutter: 02/12/20 Case Management Appointment Comment: Will see you at the [facility] Post Discharge Appointments Primary Care Physician Name Of Family Doctor: [facility] Duncan Davis Primary Care Time of Appointment with PCP: Follow up as needed Provider Appointment Comment: [phone] Contact Information Discharge Discharge Address: [address] [place] [id number] (1) Incontinence of urine Urinary Incontinence type: unspecified incontinence Qualified Code(s): R32 - Unspecified urinary incontinence (2) Bipolar disorder Active/Remission status: currently active Current bipolar episode type: manic Current episode severity: severe Psychotic features: with psychotic features Qualified Code(s): F31.2 - Bipolar disorder, current episode manic severe with psychotic features
[2020-02-09] MEDS: clonazePAM 0.25 MG TAB PO SCH ×2 (11:09→16:07)
[2020-02-09] MEDS: AUSTEDO 12 MG PO SCH ×2 (13:09→20:38)
[2020-02-09] MEDS: ACETAMINOPHEN 325 MG TAB PO PRN (18:08)
[2020-02-09] MEDS ORDERED: OLANZapine 5 MG TABLET PO SCH (20:00)
[2020-02-09] MEDS: MIRTAZAPINE TAB 15 MG TAB PO SCH (20:38)
[2020-02-10] MEDS: ACETAMINOPHEN 325 MG TAB PO PRN (06:37)
[2020-02-10] MEDS: lamoTRIgine 25 MG TAB PO SCH (08:36)
[2020-02-10] MEDS: clonazePAM 0.25 MG TAB PO SCH ×2 (08:36→16:09)
[2020-02-10] MEDS: ATORVASTATIN 20 MG TAB PO SCH (08:37)
[2020-02-10] MEDS: NICOTINE 7 MG/24 HR TDSY TD SCH (08:37)
[2020-02-10] MEDS: MULTIVITAMIN TAB PO SCH (08:37)
--- NOTE | 2020-02-10 11:18 | Discharge Summary ---
Date of Service February 10, 2020 History of Present Illness Recent admit 01/20-01/30/20 for delirium superimposed on sarthak, rios and adventism preoccupation, disrobing. Switched from Haldol to Zyprexa and maintained on Remeron. Reportedly saw outpatient psychiatrist Dr. Borden just prior to admission and dose of Zyprexa was increased. Lamictal is also being retitrated. Austedo is non-formulary (reports for leg movements) and the jail staff will drop off with some belongings. There are varying reports of how compliant she has been with medication and has been making statements toward roommate that have been disruptive if not directly threatening. Staff remain concerned that she is not taking care of self, refusing to serve herself meals or wandering outside without weather appropriate clothing. She appears to be hallucinating and religiously preoccupied at night, staying awake to talk to angels. There is a 302 petitioning statement on the chart but she indicated a willingness to sign in volunarily and did accept her medications and treatment plan in ED prior to acceptance. Physical Exam Psychiatric Orientation: alert and cooperative Apperance: appropriately dressed, appropriately groomed and appeared stated age Eye Contact: good eye contact Motor Behavior: steady gait and station and no abnormal motor movements Speech: normal rate/rhythm/volume of speech Affect: euthymic affect and mood congruent with affect "Much better." Thought Process: goal directed thought process Thought Content: reality based without delusions Suicidal Thoughts: denies suicidal thoughts Homicidal Thoughts: denies homicidal thoughts Hallucinations: no auditory hallucinations and no visual hallucinations Cognition: recent memory grossly intact, attention grossly intact and language grossly intact Estimated Intelligence: average estimated intelligence Insight: + fair insight Judgement: + fair judgement Vital Signs (Past 24 Hours) Last Vital Signs Temp 36.4 C L 02/10/20 06:23 Pulse 75 02/10/20 06:25 Resp 19 02/10/20 06:23 BP 131/76 02/10/20 06:25 Pulse Ox 99 02/10/20 06:22 Principal Diagnosis Bipolar disorder type I Psychiatric Data The patient was hospitalized for 4 days. She had just been on our unit for 9 days, and was discharged on 01/30/2020. She was continued on her home medications; lamotrigine was being retitrated due to nonadherence and had just been increased to 50mg daily, and olanzapine had been increased by her outpatient psychiatrist just prior to admission. [facility] staff was contacted by the unit staff, and they reported that the patient's roommate at the [facility] is bothersome and controlling, which has exacerbated the patient's symptoms. Initially, the patient's thoughts were scattered, and she was only partially able to participate in groups. Transition of Care Transition Of Care Record: was reviewed with the patient Advance Directives Advance Directives Information Provided: Yes Advance Directives: Yes Mental Health Advance Directive: No Advance Directives on File: No Living Will: Yes Power of Home Health Cna: Yes Advance Directives Reason:: Declines as Mental Health Visit. Risk Factors Assessment : Yes Do You Have Access To A Gun?: No Mental Health Diagnoses: Yes Substance Use Disorders: No Previous Psychiatric Hospitalization: Yes Protective Factors Assessment Responsible for Young Children: No Employed: No Good Rapport with Provider: Yes Discharge Data Lab Results 02/05/20 02/05/20 02/05/20 21:57 21:57 22:04 WBC 12.67 H RBC 4.90 Hgb 16.0 Hct 45.8 MCV 93.5 MCH 32.7 MCHC 34.9 RDW Std Deviation 44.3 RDW Coeff of Haley 13.0 Plt Count 317 MPV 10.0 Immature Gran % (Auto) 0.2 Neut % (Auto) 72.9 Lymph % (Auto) 19.2 Vermilion % (Auto) 6.6 Eos % (Auto) 0.8 Baso % (Auto) 0.3 Neut # (Auto) 9.23 H Lymph # (Auto) 2.43 Vermilion # (Auto) 0.84 H Eos # (Auto) 0.10 Baso # (Auto) 0.04 Immature Gran # (Auto) 0.03 H Sodium Potassium Chloride Carbon Dioxide Anion Gap BUN Creatinine Est Cr Clr Drug Dosing Est GFR ( Amer) Est GFR (Non-Af Amer) BUN/Creatinine Ratio Glucose Calcium Total Bilirubin AST ALT Alkaline Phosphatase Total Protein Albumin Globulin Albumin/Globulin Ratio TSH Urine Color Yellow Urine Appearance Clear Urine pH 6.0 Ur Specific Bethune 1.010 Urine Protein Negative Urine Glucose (UA) Negative Urine Ketones Negative Urine Blood Trace H Urine Nitrite Negative Urine Bilirubin Negative Urine Urobilinogen Negative Ur Leukocyte Esterase 1+ H Urine RBC 0-4 Urine WBC 5-10 H Ur Epithelial Cells 10-20 H Urine Bacteria 1+ H Salicylates Urine Opiates Screen Neg Ur Methadone, Qual Neg Acetaminophen Urine Barbiturates Neg Ur Phencyclidine (PCP) Neg U Amphetamin/Meth Scrn Neg MDMA (Ecstasy) Screen Neg U Benzodiazepines Scrn Neg Ur Cocaine Metabolite Neg U Marijuana (THC) Screen Neg Ethyl Alcohol mg/dL SARS-CoV-2 Ag (Rapid) 02/05/20 02/05/20 02/05/20 22:04 22:04 22:04 WBC RBC Hgb Hct MCV MCH MCHC RDW Std Deviation RDW Coeff of Haley Plt Count MPV Immature Gran % (Auto) Neut % (Auto) Lymph % (Auto) Vermilion % (Auto) Eos % (Auto) Baso % (Auto) Neut # (Auto) Lymph # (Auto) [place] # (Auto) Eos # (Auto) Baso # (Auto) Immature Gran # (Auto) Sodium 138 Potassium 3.6 Chloride 108 H Carbon Dioxide 23 Anion Gap 7.0 BUN 19 H Creatinine 0.82 Est Cr Clr Drug Dosing 60.2 Est GFR ( Amer) 90.8 Est GFR (Non-Af Amer) 78.3 BUN/Creatinine Ratio 23.0 H Glucose 103 H Calcium 9.5 Total Bilirubin 1.0 AST 20 ALT 44 Alkaline Phosphatase 100 Total Protein 8.0 Albumin 4.3 Globulin 3.7 Albumin/Globulin Ratio 1.2 TSH 1.050 Urine Color Urine Appearance Urine pH Ur Specific Bethune Urine Protein Urine Glucose (UA) Urine Ketones Urine Blood Urine Nitrite Urine Bilirubin Urine Urobilinogen Ur Leukocyte Esterase Urine RBC Urine WBC Ur Epithelial Cells Urine Bacteria Salicylates 3.1 Urine Opiates Screen Ur Methadone, Qual Acetaminophen < 2 L Urine Barbiturates Ur Phencyclidine (PCP) U Amphetamin/Meth Scrn MDMA (Ecstasy) Screen U Benzodiazepines Scrn Ur Cocaine Metabolite U Marijuana (THC) Screen Ethyl Alcohol mg/dL < 3.0 SARS-CoV-2 Ag (Rapid) 02/05/20 Unknown WBC RBC Hgb Hct MCV MCH MCHC RDW Std Deviation RDW Coeff of Haley Plt Count MPV Immature Gran % (Auto) Neut % (Auto) Lymph % (Auto) Vermilion % (Auto) Eos % (Auto) Baso % (Auto) Neut # (Auto) Lymph # (Auto) Vermilion # (Auto) Eos # (Auto) Baso # (Auto) Immature Gran # (Auto) Sodium Potassium Chloride Carbon Dioxide Anion Gap BUN Creatinine Est Cr Clr Drug Dosing Est GFR ( Amer) Est GFR (Non-Af Amer) BUN/Creatinine Ratio Glucose Calcium Total Bilirubin AST ALT Alkaline Phosphatase Total Protein Albumin Globulin Albumin/Globulin Ratio TSH Urine Color Urine Appearance Urine pH Ur Specific Bethune Urine Protein Urine Glucose (UA) Urine Ketones Urine Blood Urine Nitrite Urine Bilirubin Urine Urobilinogen Ur Leukocyte Esterase Urine RBC Urine WBC Ur Epithelial Cells Urine Bacteria Salicylates Urine Opiates Screen Ur Methadone, Qual Acetaminophen Urine Barbiturates Ur Phencyclidine (PCP) U Amphetamin/Meth Scrn MDMA (Ecstasy) Screen U Benzodiazepines Scrn Ur Cocaine Metabolite U Marijuana (THC) Screen Ethyl Alcohol mg/dL SARS-CoV-2 Ag (Rapid) Negative Hospital Course (1) Bipolar disorder: 02/05 The patient was admitted to the [facility] ([facility] mental [facility] unit) on q15 min checks (behavioral with suicide precautions) for safety. The patient will participate in group, recreational, and milieu therapies and will be offered additional individual and family sessions as clinically approp edd. Start Zyprexa titration and continue Lamictal retrial as per [facility]. with TID Ativan for anxiety related to delusions. It may be appropriate to transition to a long acting injectable prior to discharge, would have to be Abilify. Will defer until can be discussed with [facility] provider depending on length of stay as appears more behaviorally controlled than last stay. MNPR for now as hx of disrobing in hospital and jail. 02/06 behaviorally controlled on unit compared to last stay, med compliant, shift Zyprexa toward bedtime and dose hs med earlier so less pm breakthrough at jail. 02/08--Zyprexa 15 mg po qhs. Needs phone meeting with jail re: transition plan given roommate conflicts. (2) Incontinence of urine: 02/05--monitor, UC pending. 02/06--UC still pending, remains asymptomatic, Oxybutynin prn as available at jail, mainly incontinent and poor boundaries (reported as asking for hugs) when manic. 02/08--UC skin arthur (3) Breathlessness: 02/08--unclear how much is anxiety vs chronic smoking, will try Klonopin 0.25 mg BID (am and early evening) in place of TID Ativan for better coverage, check pulse ox per shift as fluctuations could contribute to AMS. Patient is requesting to retry ventolin inhaler while here. Mental Health & Subst Abuse Tx Psychiatrist Name of Psychiatrist: [facility] - Dr. Borden Psychiatrist's Date of Appointment with Psychiatrist: 02/20/20 Time of Appointment with Psychiatrist: 4:05pm Psychiatric Appointment Comment: Telehealth Therapist [facility] [facility] Date of Therapist Appointment: 02/12/20 Time of Therapist Appointment: 4pm Therapy Appointment Comment: Telehealth Bench Worker Binding Name of Bench Worker Binding: [facility] Anna Pily Phone Number for Bench Worker Binding: [phone] Date of Appointment with Bench Worker Binding: 02/12/20 Time of Appointment with Bench Worker Binding: 11:30 Case Management Appointment Comment: Will see you at the [facility] Post Discharge Appointments Primary Care Physician Name Of Family Doctor: [facility] - Dr. Davis Primary Care Time of Appointment with PCP: Follow up as needed Provider Appointment Comment: [phone] Contact Information Discharge Discharge Address: [address] [place] [address] Discharge Plan Discharge Items Patient Disposition: Home - Self-Care Reason For Visit: BIPOLAR DISORDER Discharge Diagnosis: BIpolar disorder Activity: Per Instructions section Driving/Machine Use: No driving. Non-emergency contact: Primary Care Provider, Psychiatrist, Therapist and Supervisor Fabrication Call non-emergency contact if: you have any medication questions and your symptoms worsen Follow-up/Referrals: Yovany Davis MD [Primary Care Provider] - Diet: Regular Addtl Attending Provider Instructions: SPECIAL CARE INSTRUCTIONS: 1. Follow through with your scheduled aftercare appointments. If unable to keep an appointment, please call to reschedule. 2. Take your medication only as prescribed. Medication should not be changed or stopped without the approval of your doctor. In the event of worsening symptoms or concerns about side effects, contact your doctor immediately. 3. Utilize new healthy coping skills, anger management skills, and stress management skills learned during your hospitalization. Journal feelings and process them with a support person. Identify stressors or situations that may result in relapse, deterioration or inappropriate behaviors and develop a plan to deal with those issues. 4. If your coping skills are ineffective and you are in crisis, contact your outpatient providers for direction. If unable to reach your providers, please call the [facility] CRISIS LINE AT , go to the [facility] walk-in center at [address], [address], [place], or go to the closest Emergency Room. 5. Avoid alcohol and un-prescribed drugs. 6. You have been provided with the Mental Health Advance Directives Pamphlet for your review. AFTERCARE APPOINTMENTS: * Please call your insurance company prior to your scheduled appointment to andry amfirm your aftercare providers are covered. Take your insurance information to your appointments. WHO TO CALL AND WHEN: Medical Emergencies: For questions or emergencies related to your hospital stay, please contact the Inpatient Behavioral Health Unit at [phone]. A recruiting scheduler is on-call 03/10 for the Behavioral Health Unit for emergencies At any time you feel your situation is an emergency, you may also call 911 immediately. Pending Studies at Discharge: No Stand-Alone Forms: My [facility], Smoking Cessation Medications and DC Order Prescriptions: New clonazepam 0.5 mg Tablet 0.25 mg PO BID17 Qty: 12 RF: 0 nicotine 7 mg/24 hr Patch 24 Hour 7 mg transdermal QAM Qty: 7 RF: 0 Continued lamotrigine 25 mg Tablet 50 mg PO DAILY RF: 0 olanzapine 15 mg tablet 15 mg PO HS RF: 0 mirtazapine 15 mg tablet 15 mg PO HS RF: 0 hydroxyzine HCl 50 mg PO HS RF: 0 multivitamin Tablet 1 tab PO QAM RF: 0 atorvastatin [Lipitor] 20 mg tablet 20 mg PO QAM RF: 0 Discontinued lorazepam 1 mg tablet 0.5 mg PO TID Qty: 0 RF: 0 Austedo 12 mg Tablet 12 mg PO BID RF: 0 Krames/Other Patient Handouts: Hepatitis C: Should You Get Tested? Admission Data Admit Date/Time: 02/06/20 02:09 Attending Provider: Chante Bermudez Admit Provider: Jud Tello Primary Care Provider: Yovany Davis Other Interventions: PSY Interdisciplinary Discharge Planning Last Done: 02/10/20 09:07 Coding Diagnoses Bipolar disorder F31.2 Active/Remission status: currently active Current bipolar episode type: manic Current episode severity: severe Psychotic features: with psychotic features Incontinence of urine R32 Urinary Incontinence type: unspecified incontinence Breathlessness R06.81
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
[2020-02-10] MEDS: AUSTEDO 12 MG PO SCH ×2 (12:07→20:53)
[2020-02-10] MEDS: ALUMINUM/MAGNESIUM SUSP 30 ML UDC PO PRN (15:08)
[2020-02-10] MEDS: hydrOXYzine HCl 25 MG TAB PO PRN (17:53)
[2020-02-10] MEDS: MIRTAZAPINE TAB 15 MG TAB PO SCH (20:52)
[2020-02-10] MEDS ORDERED: OLANZapine 10 MG TAB PO SCH (22:00)
[2020-02-11] MEDS: ACETAMINOPHEN 325 MG TAB PO PRN (00:47)
[2020-02-11] MEDS: hydrOXYzine HCl 25 MG TAB PO PRN ×3 (01:32→12:06)
[2020-02-11] MEDS: ALUMINUM/MAGNESIUM SUSP 30 ML UDC PO PRN (03:44)
[2020-02-11] MEDS: clonazePAM 0.25 MG TAB PO SCH ×2 (08:27→16:58)
[2020-02-11] MEDS: lamoTRIgine 25 MG TAB PO SCH (08:27)
[2020-02-11] MEDS: ATORVASTATIN 20 MG TAB PO SCH (08:27)
[2020-02-11] MEDS: MULTIVITAMIN TAB PO SCH (08:27)
[2020-02-11] MEDS: NICOTINE 7 MG/24 HR TDSY TD SCH (08:34)
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
[2020-02-11] MEDS: AUSTEDO 12 MG PO SCH ×2 (11:35→21:29)
[2020-02-11] MEDS ORDERED: BENZOCAINE 20% (ORAJEL) 11.9 GM TUBE MT PRN (12:47)
[2020-02-11] MEDS: MIRTAZAPINE TAB 15 MG TAB PO SCH (21:28)
[2020-02-11] MEDS: OLANZapine 20 MG TABLET PO SCH (21:29)
[2020-02-12] MEDS: clonazePAM 0.25 MG TAB PO SCH ×2 (08:11→17:03)
[2020-02-12] MEDS: MULTIVITAMIN TAB PO SCH (08:11)
[2020-02-12] MEDS: lamoTRIgine 25 MG TAB PO SCH (08:12)
[2020-02-12] MEDS: ATORVASTATIN 20 MG TAB PO SCH (08:12)
[2020-02-12] MEDS: NICOTINE 7 MG/24 HR TDSY TD SCH (08:16)
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
[2020-02-12] MEDS: AUSTEDO 12 MG PO SCH ×2 (12:41→20:27)
[2020-02-12] MEDS: ALUMINUM/MAGNESIUM SUSP 30 ML UDC PO PRN (17:53)
[2020-02-12] MEDS: hydrOXYzine HCl 25 MG TAB PO PRN (19:33)
[2020-02-12] MEDS: MIRTAZAPINE TAB 15 MG TAB PO SCH (20:27)
[2020-02-12] MEDS: OLANZapine 20 MG TABLET PO SCH (20:28)
[2020-02-13] MEDS: NICOTINE 7 MG/24 HR TDSY TD SCH (08:17)
[2020-02-13] MEDS: clonazePAM 0.25 MG TAB PO SCH ×2 (08:17→16:54)
[2020-02-13] MEDS: MULTIVITAMIN TAB PO SCH (08:17)
[2020-02-13] MEDS: lamoTRIgine 25 MG TAB PO SCH (08:17)
[2020-02-13] MEDS: ATORVASTATIN 20 MG TAB PO SCH (08:17)
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
[2020-02-13] MEDS: AUSTEDO 12 MG PO SCH ×2 (12:08→20:33)
[2020-02-13] MEDS: MIRTAZAPINE TAB 15 MG TAB PO SCH (19:52)
[2020-02-13] MEDS: ALUMINUM/MAGNESIUM SUSP 30 ML UDC PO PRN (19:58)
[2020-02-13] MEDS: OLANZapine 20 MG TABLET PO SCH (20:33)
[2020-02-13] MEDS: hydrOXYzine HCl 25 MG TAB PO PRN (21:26)
[2020-02-14] MEDS: ACETAMINOPHEN 325 MG TAB PO PRN ×3 (06:47→20:44)
[2020-02-14] MEDS: hydrOXYzine HCl 25 MG TAB PO PRN ×3 (06:52→20:44)
[2020-02-14] MEDS: MULTIVITAMIN TAB PO SCH (08:27)
[2020-02-14] MEDS: ATORVASTATIN 20 MG TAB PO SCH (08:27)
[2020-02-14] MEDS: lamoTRIgine 25 MG TAB PO SCH (08:28)
[2020-02-14] MEDS: NICOTINE 7 MG/24 HR TDSY TD SCH (08:29)
[2020-02-14] MEDS: clonazePAM 0.25 MG TAB PO SCH ×2 (08:31→15:56)
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
[2020-02-14] MEDS: AUSTEDO 12 MG PO SCH ×2 (12:43→20:14)
[2020-02-14] MEDS: MIRTAZAPINE TAB 15 MG TAB PO SCH (19:59)
[2020-02-14] MEDS: OLANZapine 20 MG TABLET PO SCH (20:15)
[2020-02-15] MEDS: ATORVASTATIN 20 MG TAB PO SCH (09:00)
[2020-02-15] MEDS: lamoTRIgine 25 MG TAB PO SCH (09:00)
[2020-02-15] MEDS: clonazePAM 0.25 MG TAB PO SCH ×2 (09:00→17:00)
[2020-02-15] MEDS: MULTIVITAMIN TAB PO SCH (09:00)
[2020-02-15] MEDS: NICOTINE 7 MG/24 HR TDSY TD SCH (09:00)
[2020-02-15] MEDS: AUSTEDO 12 MG PO SCH ×2 (12:00→20:31)
[2020-02-15] MEDS: hydrOXYzine HCl 25 MG TAB PO PRN ×4 (12:50→22:14)
[2020-02-15] MEDS: OXYBUTYNIN CHLORIDE 5 MG TAB PO PRN (16:30)
[2020-02-15] MEDS: MIRTAZAPINE TAB 15 MG TAB PO SCH (20:31)
[2020-02-15] MEDS: OLANZapine 20 MG TABLET PO SCH (20:32)
[2020-02-16] MEDS: ALUMINUM/MAGNESIUM SUSP 30 ML UDC PO PRN ×3 (07:00→19:24)
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
[2020-02-16] MEDS: MULTIVITAMIN TAB PO SCH (08:23)
[2020-02-16] MEDS: lamoTRIgine 25 MG TAB PO SCH (08:23)
[2020-02-16] MEDS: clonazePAM 0.25 MG TAB PO SCH ×2 (08:23→17:30)
[2020-02-16] MEDS: ATORVASTATIN 20 MG TAB PO SCH (08:23)
[2020-02-16] MEDS: AUSTEDO 12 MG PO SCH ×2 (12:56→20:46)
[2020-02-16] MEDS: NICOTINE 7 MG/24 HR TDSY TD SCH (12:59)
[2020-02-16] MEDS: ACETAMINOPHEN 325 MG TAB PO PRN ×2 (13:22→17:44)
[2020-02-16] MEDS: MIRTAZAPINE TAB 15 MG TAB PO SCH (20:45)
[2020-02-16] MEDS: OLANZapine 20 MG TABLET PO SCH (20:46)
[2020-02-16] MEDS: hydrOXYzine HCl 25 MG TAB PO PRN (22:38)
[2020-02-17] MEDS: MULTIVITAMIN TAB PO SCH (08:26)
[2020-02-17] MEDS: lamoTRIgine 25 MG TAB PO SCH (08:27)
[2020-02-17] MEDS: ATORVASTATIN 20 MG TAB PO SCH (08:27)
[2020-02-17] MEDS: NICOTINE 7 MG/24 HR TDSY TD SCH (08:28)
[2020-02-17] MEDS: clonazePAM 0.25 MG TAB PO SCH (08:31)
[2020-02-17] MEDS: hydrOXYzine HCl 25 MG TAB PO PRN (09:27)
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
[2020-02-17] MEDS: AUSTEDO 12 MG PO SCH ×2 (11:47→20:35)
[2020-02-17] MEDS: ACETAMINOPHEN 325 MG TAB PO PRN ×2 (12:05→17:28)
[2020-02-17] MEDS: clonazePAM 0.5 MG TAB PO SCH (17:04)
[2020-02-17] MEDS: OLANZapine 20 MG TABLET PO SCH (20:34)
[2020-02-17] MEDS: MIRTAZAPINE TAB 15 MG TAB PO SCH (20:34)
[2020-02-18] MEDS: ACETAMINOPHEN 325 MG TAB PO PRN (06:31)
[2020-02-18] MEDS: hydrOXYzine HCl 25 MG TAB PO PRN (06:32)
[2020-02-18] MEDS: MULTIVITAMIN TAB PO SCH (08:32)
[2020-02-18] MEDS: ATORVASTATIN 20 MG TAB PO SCH (08:32)
[2020-02-18] MEDS: NICOTINE 7 MG/24 HR TDSY TD SCH (08:32)
[2020-02-18] MEDS: lamoTRIgine 25 MG TAB PO SCH (08:32)
[2020-02-18] MEDS: clonazePAM 0.5 MG TAB PO SCH (08:35)
--- NOTE | 2020-02-18 12:05 | Discharge Summary ---
Date of Service February 18, 2020 Physical Exam Psychiatric Orientation: alert and cooperative Apperance: appropriately dressed, appropriately groomed and appeared stated age Eye Contact: good eye contact Motor Behavior: steady gait and station and no abnormal motor movements Speech: normal rate/rhythm/volume of speech Affect: + anxious affect and mood congruent with affect "A little anxious." Thought Process: goal directed thought process Thought Content: + preoccupation (With interpersonal difficulties with her longterm roommate) and reality based without delusions Suicidal Thoughts: denies suicidal thoughts Homicidal Thoughts: denies homicidal thoughts Hallucinations: no auditory hallucinations and no visual hallucinations Cognition: attention grossly intact and language grossly intact; + recent memory not intact Estimated Intelligence: average estimated intelligence Insight: + fair insight Judgement: + fair judgement Vital Signs (Past 24 Hours) Last Vital Signs Temp 36.3 C L 02/18/20 06:49 Pulse 75 02/18/20 06:49 Resp 16 02/18/20 06:49 BP 135/83 02/18/20 06:49 Pulse Ox 99 02/10/20 06:22 Principal Diagnosis Bipolar disorder, type I, most recent episode manic with psychosis Delirium, multifactorial Psychiatric Data The patient was hospitalized for 12 days. Multiple medication adjustments were made to target psychotic sarthak, including increasing olanzapine to 20 mg at bedtime, and changing lorazepam to clonazepam for short-term treatment of sarthak and anxiety. She was continued on the retitration schedule for lamotrigine, and is scheduled to increase the dose to 100 mg daily tomorrow. She was in better behavioral control during this hospitalization as compared to previous ones, and was compliant with oral medications. She had multiple meetings with longterm staff regarding personality conflicts with [facility]mate [facility] the [facility], and is reported ongoing anxiety throughout hospitalization related to how they would get along when she returned home after discharge. Her BCM was also contacted and met with her on the unit, informed the patient that she would be leaving, and an interim BCM was assigned. They discussed recommendations for her to attend psych rehab in [facility] for day programming, which would also get her out of the [facility] and give her a break from her roommate. As she has during previous hospitalizations, she demonstrated episodic decreased sleep, rumination, and paranoia, with ideas of reference that other patients on the unit might harm her. She demonstrated cognitive impairment with short-term memory loss, for example would frequently ask staff for her medications 3 or 4 times shortly after taking them, and did not remember that she had just taken them. There appeared to be an element of delirium, as she had episodic confusion and disorientation, was less severe than her last hospitalization here. We again reviewed recommendations that she not drive until she has fully stabilized and been cleared by her physician, which she has agreed to. She did attend and participate in groups and therapy, and consistently denied suicidal ideation. Day of Discharge Assessment Patient reports she continues to feel anxious about returning to the [facility], and she worries that she and her roommate will continue to have a hard time getting along. She has been using her coping skills here, and is able to review them as well as her discharge safety plan. She denies hallucinations, suicidal thoughts, and homicidal thoughts. Sleep has improved significantly since admission, got 7.5 hours overnight. Appetite is good, and she is taking medications as prescribed. She is tending to ADLs independently, and has been attending and participating in groups and therapy. She denies side effects to medications. Transition of Care Transition Of Care Record: was reviewed with the patient Advance Directives Advance Directives Information Provided: Yes Advance Directives: Yes Mental Health Advance Directive: No Advance Directives on File: No Living Will: Yes Power of Pump Runner: Yes Advance Directives Reason:: Declines as Mental Health Visit. Risk Factors Assessment Risk factors were mitigated by admission to the inpatient unit, use of medications to target mood, anxiety, and psychotic symptoms, coordination with her outpatient clinicians, involvement of longterm staff and her BCM, inv olving her in groups and therapy, working on healthy coping skills and her discharge safety plan. She has demonstrated improvement in mood stability, sleep, and psychotic symptoms, is taking medications as directed, is eating and sleeping well, performing ADLs independently, and stating willingness to follow- up with outpatient treatment. She had several discharge planning meetings, and after her meeting this morning with longterm staff, all were in agreement with discharge. She is no longer at acute risk of harm to herself or others, so can be managed as an outpatient at this time. Male: No : Yes Do You Have Access To A Gun?: No Health Problems: No Mental Health Diagnoses: Yes Substance Use Disorders: No Previous Attempt: No Family History of Suicide: No Previous Psychiatric Hospitalization: Yes Hopelessness: No Smoker: Yes Protective Factors Assessment : No Responsible for Young Children: No Employed: No Stable Relationships: No Supportive Family: Yes Good Rapport with Provider: Yes Tobacco Cessation at Discharge Tobacco Cessation Medication Prescribed at Discharge: Offered & Prescribed Practical counseling provided including: recognizing danger situations, developing coping skills and providing basic information about quitting Tobacco Cessation Outpatient Followup: Outpatient referral made to (Psychiatry/therapy) Total Time Total Time Spent: Greater Than 30 Minutes Total Time Includes: Examination of the patient, Discharge Planning, Medication Reconciliation and Communication with other providers Discharge Data Lab Results 02/05/20 02/05/20 02/05/20 21:57 21:57 22:04 WBC 12.67 H RBC 4.90 Hgb 16.0 Hct 45.8 MCV 93.5 MCH 32.7 MCHC 34.9 RDW Std Deviation 44.3 RDW Coeff of Haley 13.0 Plt Count 317 MPV 10.0 Immature Gran % (Auto) 0.2 Neut % (Auto) 72.9 Lymph % (Auto) 19.2 [facility] % (Auto) 6.6 Eos % (Auto) 0.8 Baso % (Auto) 0.3 Neut # (Auto) 9.23 H Lymph # (Auto) 2.43 [facility] # (Auto) 0.84 H Eos # (Auto) 0.10 Baso # (Auto) 0.04 Immature Gran # (Auto) 0.03 H Sodium Potassium Chloride Carbon Dioxide Anion Gap BUN Creatinine Est Cr Clr Drug Dosing Est GFR ( Amer) Est GFR (Non-Af Amer) BUN/Creatinine Ratio Glucose Calcium Total Bilirubin AST ALT Alkaline Phosphatase Total Protein Albumin Globulin Albumin/Globulin Ratio TSH Urine Color Yellow Urine Appearance Clear Urine pH 6.0 Ur Specific Rough And Ready 1.010 Urine Protein Negative Urine Glucose (UA) Negative Urine Ketones Negative Urine Blood Trace H Urine Nitrite Negative Urine Bilirubin Negative Urine Urobilinogen Negative Ur Leukocyte Esterase 1+ H Urine RBC 0-4 Urine WBC 5-10 H Ur Epithelial Cells 10-20 H Urine Bacteria 1+ H Salicylates Urine Opiates Screen Neg Ur Methadone, Qual Neg Acetaminophen Urine Barbiturates Neg Lamotrigine Ur Phencyclidine (PCP) Neg U Amphetamin/Meth Scrn Neg MDMA (Ecstasy) Screen Neg U Benzodiazepines Scrn Neg Ur Cocaine Metabolite Neg U Marijuana (THC) Screen Neg Ethyl Alcohol mg/dL SARS-CoV-2 Ag (Rapid) 1102/05/20 02/05/20 22:04 22:04 22:04 WBC RBC Hgb Hct MCV MCH MCHC RDW Std Deviation RDW Coeff of Haley Plt Count MPV Immature Gran % (Auto) Neut % (Auto) Lymph % (Auto) [facility] % (Auto) Eos % (Auto) Baso % (Auto) Neut # (Auto) Lymph # (Auto) [facility] # (Auto) Eos # (Auto) Baso # (Auto) Immature Gran # (Auto) Sodium 138 Potassium 3.6 Chloride 108 H Carbon Dioxide 23 Anion Gap 7.0 BUN 19 H Creatinine 0.82 Est Cr Clr Drug Dosing 60.2 Est GFR ( Amer) 90.8 Est GFR (Non-Af Amer) 78.3 BUN/Creatinine Ratio 23.0 H Glucose 103 H Calcium 9.5 Total Bilirubin 1.0 AST 20 ALT 44 Alkaline Phosphatase 100 Total Protein 8.0 Albumin 4.3 Globulin 3.7 Albumin/Globulin Ratio 1.2 TSH 1.050 Urine Color Urine Appearance Urine pH Ur Specific Rough And Ready Urine Protein Urine Glucose (UA) Urine Ketones Urine Blood Urine Nitrite Urine Bilirubin Urine Urobilinogen Ur Leukocyte Esterase Urine RBC Urine WBC Ur Epithelial Cells Urine Bacteria Salicylates 3.1 Urine Opiates Screen Ur Methadone, Qual Acetaminophen < 2 L Urine Barbiturates Lamotrigine Ur Phencyclidine (PCP) U Amphetamin/Meth Scrn MDMA (Ecstasy) Screen U Benzodiazepines Scrn Ur Cocaine Metabolite U Marijuana (THC) Screen Ethyl Alcohol mg/dL < 3.0 SARS-CoV-2 Ag (Rapid) 02/05/20 02/05/20 22:04 Unknown WBC RBC Hgb Hct MCV MCH MCHC RDW Std Deviation RDW Coeff of Haley Plt Count MPV Immature Gran % (Auto) Neut % (Auto) Lymph % (Auto) [facility] % (Auto) Eos % (Auto) Baso % (Auto) Neut # (Auto) Lymph # (Auto) [facility] # (Auto) Eos # (Auto) Baso # (Auto) Immature Gran # (Auto) Sodium Potassium Chloride Carbon Dioxide Anion Gap BUN Creatinine Est Cr Clr Drug Dosing Est GFR ( Amer) Est GFR (Non-Af Amer) BUN/Creatinine Ratio Glucose Calcium Total Bilirubin AST ALT Alkaline Phosphatase Total Protein Albumin Globulin Albumin/Globulin Ratio TSH Urine Color Urine Appearance Urine pH Ur Specific Rough And Ready Urine Protein Urine Glucose (UA) Urine Ketones Urine Blood Urine Nitrite Urine Bilirubin Urine Urobilinogen Ur Leukocyte Esterase Urine RBC Urine WBC Ur Epithelial Cells Urine Bacteria Salicylates Urine Opiates Screen Ur Methadone, Qual Acetaminophen Urine Barbiturates Lamotrigine 0.7 L Ur Phencyclidine (PCP) U Amphetamin/Meth Scrn MDMA (Ecstasy) Screen U Benzodiazepines Scrn Ur Cocaine Metabolite U Marijuana (THC) Screen Ethyl Alcohol mg/dL SARS-CoV-2 Ag (Rapid) Negative Hospital Course (1) Bipolar disorder: 02/05 The patient was admitted to the [facility] ([facility] mental health unit) on q15 min checks (behavioral with suicide precautions) for safety. The patient will participate in group, recreational, and milieu therapies and w ill be offered additional individual and family sessions as clinically appropriate. Start Zyprexa titration and continue Lamictal retrial as per [facility]. with TID Ativan for anxiety related to delusions. It may be appropriate to transition to a long acting injectable prior to discharge, would have to be Abilify. Will defer until can be discussed with [facility] provider depending on length of stay as appears more behaviorally controlled than last stay. MNPR for now as hx of disrobing in hospital and longterm. 02/06 behaviorally controlled on unit compared to last stay, med compliant, shift Zyprexa toward bedtime and dose hs med earlier so less pm breakthrough at longterm. 02/07 continue current meds and treatment plan (Zyprexa is shifting toward bedtime). 02/08--Zyprexa 15 mg po qhs. Needs phone meeting with longterm re: transition plan given roommate conflicts. 02/09 -discharge planning meeting held with the patient, social media designer, and longterm staff; patient does not yet feel ready to leave due to anxiety about her issues with her longterm roommate. correction staff are setting up a meeting with the patient and her roommate tomorrow to discuss this further. Anticipate discharge tomorrow. -Fasting labs for monitoring on an atypical antipsychotic: Reviewed labs from previous stay 01/23/2020, glucose 118, triglycerides 155, otherwise within normal limits. 02/10 - Titrating Zyprexa to 20mg qHS. Case reviewed with patient's outpatient psychiatrist who verbalized concern for patient's rapid decompensation after her previous hospitalization. Given that patient had a difficulty evening with <2 hours of sleep, increased anxiety, and mood instability - we are recommending further inpatient hospitalization to ensure better stability prior to discharge - Will reschedule outpatient therapy and psychiatry appointments - Encourage communication with piano case and bench assembler 02/11 - Continue current medication regimen - pt is reportedly mildly improved today, but our desire is to ensure stability for a more consistent period of time before discharge. - Pt, herself, admits that she does not yet feel prepared to deal with her roommate at the [facility] - which is also the primary reported stressor that led to this hospitalization. - Thought process continues to seem tangential and disconnected, though she states anxiety is somewhat reduced today - there have been episodes of confusion observed during interactions. - Meeting with her piano case and bench assembler this morning. 02/12 - Continue current medication regimen - patient continues to verbalize frustration with recommended length of stay, but has not yet demonstrated consistency of mood that would suggest she would remain stable for sufficient period of time after discharge. - Continue to engage patient in group programming - [facility] staff hopeful for transition back to [facility] on 02/16 when additional staff will be able to offer support 02/13 - Continue treatment plan as above - patient continuing to experience episodes of confusion and some mood lability - Continue to encourage participation with group programming 02/15 -Lamotrigine was increased to 50 mg 02/05/2020, so can be increased to 100 mg on 02/19/2020. Continue olanzapine and use of as needed medications. Encourage patient to utilize her coping skills and work on strategies for managing interpersonal conflict. It would benefit her to be out of the [facility] and attending day programming on a daily basis. 02/16 - Titrating clonazepam to 0.5mg BID - with hopes it can be tapered as patient continues to stabilize. Pt does appear more anxious and restless, unclear if related to anticipatory anxiety about discharge, frustration with ongoing hospitalization, or possibly akathisia from titrated dose of olanzapine. - Lamotrigine to be titrated to 100mg on 02/19/2020 - Will provide [facility] staff with updates regarding patient's progress, as discharge in the next 1-2 days is anticipated. 02/17 -Meeting held with longterm staff, all were in agreement with discharge. Although patient is not yet fully stabilized at baseline, it will likely take weeks to months for this to occur, and I do not believe she is at acute risk of harm to herself or others at this time. -Prescriptions issued for lamotrigine 100 mg daily #30, olanzapine 20 mg at bedtime #30, and clonazepam 0.5 mg twice daily #15 (chosen for antimanic and anxiolytic properties). Discharge plan communicated to her outpatient psychiatrist, Dr. Borden, whom she will see in 2 days. She will see her therapist tomorrow, and her BCM in 3 days. -Patient has been reminded of recommendations not to drive until she has fully stabilized and been cleared by her physician. Her son has her car and is aware as well. (2) Incontinence of urine: 02/05--monitor, UC pending. 02/06--UC still pending, remains asymptomatic, Oxybutynin prn as available at longterm, mainly incontinent and poor boundaries (reported as asking for hugs) when manic. 02/08--UC skin arthur (3) Breathlessness: 02/08--unclear how much is anxiety vs chronic smoking, will try Klonopin 0.25 mg BID (am and early evening) in place of TID Ativan for better coverage, check pulse ox per shift as fluctuations could contribute to AMS. Patient is requesting to retry ventolin inhaler while here. Mental Health & Subst Abuse Tx Psychiatrist Name of Psychiatrist: [facility] - Dr. Borden Psychiatrist's Date of Appointment with Psychiatrist: 02/20/20 Time of Appointment with Psychiatrist: 4:05pm Psychiatric Appointment Comment: Telehealth Therapist Name of Therapist: [facility] [place] Therapist's Date of Therapist Appointment: 02/19/20 Time of Therapist Appointment: 3pm Therapy Appointment Comment: Telehealth Regulatory Analyst Name of Regulatory Analyst: [facility] - Lillie Ochoa Phone Number for Regulatory Analyst: [phone] Date of Appointment with Regulatory Analyst: 02/21/20 Time of Appointment with Regulatory Analyst: 12:00 p.m. Case Management Appointment Comment: Will see you at the [facility] Post Discharge Appointments Primary Care Physician Name Of Family Doctor: [facility] - Dr. Davis Primary Care Time of Appointment with PCP: Follow up as needed Provider Appointment Comment: [address] [facility] Smoking Cessation Counseling Tobacco Cessation Medication Prescribed at Discharge: Offered & Prescribed Contact Information Discharge Discharge Address: [place] [address] Discharge Plan Discharge Items Patient Disposition: Home - Self-Care Reason For Visit: BIPOLAR DISORDER Discharge Diagnosis: BIpolar disorder Activity: Per Instructions section Driving/Machine Use: No driving. Non-emergency contact: Primary Care Provider, Psychiatrist, Therapist and Talent Development Analyst Call non-emergency contact if: you have any medication questions and your symptoms worsen Follow-up/Referrals: Yovany Davis MD [Primary Care Provider] - Diet: Regular Addtl Attending Provider Instructions: SPECIAL CARE INSTRUCTIONS: 1. Follow through with your scheduled aftercare appointments. If unable to keep an appointment, please call to reschedule. 2. Take your medication only as prescribed. Medication should not be changed or stopped without the approval of your doctor. In the event of worsening symptoms or concerns about side effects, contact your doctor immediately. 3. Utilize new healthy coping skills, anger management skills, and stress management skills learned during your hospitalization. Journal feelings and process them with a support person. Identify stressors or situations that may result in relapse, deterioration or inappropriate behaviors and develop a plan to deal with those issues. 4. If your coping skills are ineffective and you are in crisis, contact your outpatient providers for direction. If unable to reach your providers, please call the [facility] CRISIS LINE AT , go to the [facility] walk-in center at [address], [place], or go to the closest Emergency Room. 5. Avoid alcohol and un-prescribed drugs. 6. You have been provided with the Mental Health Advance Directives Pamphlet for your review. AFTERCARE APPOINTMENTS: * Please call your insurance company prior to your scheduled appointment to confirm your aftercare providers are covered. Take your insurance information to your appointments. WHO TO CALL AND WHEN: Medical Emergencies: For questions or emergencies related to your hospital stay, please contact the Inpatient Behavioral Health Unit at [phone]. A associate professor of literacy is on-call 03/10 for the Behavioral Health Unit for emergencies At any time you feel your situation is an emergency, you may also call 911 immediately. Pending Studies at Discharge: No Stand-Alone Forms: My [facility], Smoking Cessation Medications and DC Order Prescriptions: New nicotine 7 mg/24 hr Patch 24 Hour 7 mg transdermal QAM Qty: 7 RF: 0 lamotrigine 100 mg tablet 100 mg PO DAILY Qty: 30 RF: 0 clonazepam 0.5 mg Tablet 0.5 mg PO [id number] Qty: 30 RF: 0 olanzapine [Zyprexa] 20 mg Tablet 20 mg PO HS Qty: 30 RF: 0 Continued mirtazapine 15 mg tablet 15 mg PO HS RF: 0 hydroxyzine HCl 50 mg PO HS RF: 0 multivitamin Tablet 1 tab PO QAM RF: 0 atorvastatin [Lipitor] 20 mg tablet 20 mg PO QAM RF: 0 Discontinued lorazepam 1 mg tablet 0.5 mg PO TID Qty: 0 RF: 0 lamotrigine 25 mg Tablet 50 mg PO DAILY RF: 0 olanzapine 15 mg tablet 15 mg PO HS RF: 0 Austedo 12 mg Tablet 12 mg PO BID RF: 0 Discharge Orders: Discharge Order (Routine); Ordered 02/18/20 Ordered By: Chante Bermudez Admission Data Admit Date/Time: 02/06/20 02:09 Attending Provider: Chante Bermudez Admit Provider: Jud Tello Primary Care Provider: Yovany Davis Other Interventions: PSY Interdisciplinary Discharge Planning Last Done: 02/17/20 09:01 Coding Level of Care Code 87712 D/C day mgmt > 30 min Diagnoses Bipolar disorder F31.2 Active/Remission status: currently active Current bipolar episode type: manic Current episode severity: severe Psychotic features: with psychotic features Incontinence of urine R32 Urinary Incontinence type: unspecified incontinence Breathlessness R06.81
[2020-02-18] MEDS: AUSTEDO 12 MG PO SCH (12:21)
== END 2020-02-18 12:37 | disposition home or self-care (01) | DRG 885 ==
LOC: ED 21:37 → SUATTDRO 02-06 02:09 → 3S 02-06 02:09 → ED 02-06 02:35